=== PATIENT | female | born 1935 | race Caucasian/White ===

== ENCOUNTER 2016-04-17 12:20 | Outpatient (RCR) | payer MEDICARE, OTHER ==
--- OUTSIDE RECORDS SUMMARY | 2016-02-07 12:28 | XMS REPORT | Continuity of Care Document ---
Author Author [facility] Organization [facility] Address Unknown Phone Unavailable Care Team Providers Care Die Cast Engineer Name Role Phone DEANGELO FOSTER MD PCP Insurance Providers Payer Name Policy Number Subscriber Name Relationship [employer] [place] [id number] Bennett Pisano 18 Self / Same As Patient Advance Directives Directive Response Recorded Date/Time Advance Directives Yes 06/16/14 8:55am Health Care Power of Mop Machine Operator Yes 06/16/14 8:55am Organ Donor No 06/16/14 8:55am Resuscitation Status Full Code 06/16/14 8:55am Problems No known problems or medical conditions. Medications Medication Dose Route Sig Days/Qty Instructions Order Date Discontinued Date Status Meloxicam (Mobic) 1 Each PO BEDTIME 09/16/10 09/30/10 Discontinued Pravastatin Sodium 1 Tab PO BEDTIME 09/16/10 09/30/10 Discontinued Lisinopril (Zestril) 1 Each PO BEDTIME 09/16/10 09/30/10 Discontinued [place]-3 Fatty Acids/Fish Oil 1 Each PO TWICE A DAY 09/16/10 Active Carvedilol (Coreg) 12.5 Mg PO TWICE A DAY TAKE 1/2 PILL TWICE A DAY 01/17 Active Omeprazole 20 Mg PO DAILY 09/16/10 Active Docusate Sodium 100 Mg PO TWICE A DAY 09/30/10 Active Lisinopril 40 Mg PO BEDTIME 06/29/11 08/27/11 Discontinued Acetaminophen/Hydrocodone Bitart 1 Each PO q6 hrs PRN 06/29/11 Active Amlodipine Besylate (Norvasc 5 Mg) 10 Mg PO DAILY 07/09/11 Active Polyethylene Glycol 17 Gm PO hs daily 07/09/11 02/07/12 Discontinued Senna 2 Ea PO TWICE A DAY 07/09/11 02/07/12 Discontinued Acidophilus 2 Each PO bid ac 09/05/11 02/07/12 Discontinued Metronidazole 500 Mg PO TWICE A DAY 09/05/11 05/16/14 Discontinued Potassium Chloride 2 Each PO TWICE A DAY WITH MEALS 09/05/11 Discontinued Trolamine Salicylate 0 TOP FOUR TIMES DAILY APPLY GENEROUSLY TO AFFECTED AREA. 09/05/11 02/07/12 Discontinued Glipizide 2.5 PO DAILY 06/16/14 Active Sitagliptin Phosphate 1 Each PO DAILY 06/16/14 Active Simvastatin 20 Mg PO BEDTIME 06/16/14 Active Escitalopram Oxalate 10 Mg PO BEDTIME 06/16/14 Active Gabapentin 100 Mg PO BEDTIME 06/16/14 Active Social History Social History Problem Response Recorded Date/Time Recent Foreign Travel No 06/16/2014 8:55am Smoking Status Never a Smoker 06/16/2014 8:55am Query Response Start Date Stop Date Smoking Status Never a Smoker Hospital Discharge Instructions No hospital discharge instructions. Plan of Care No plan of care. Functional Status No functional status results. Allergies, Adverse Reactions, Alerts Allergen Type Severity Reaction Status Last Updated NKANo Known Allergies Allergy Unknown Active 07/04/11 Immunizations Name Given Type Date of Pneumonia Vaccine 08/08/11 Historical Date of Influenza Vaccine 11/07/13 Historical Vital Signs Acute Vital Signs Vital Response Date/Time Temperature (Fahrenheit) 98.0 degrees F (97.6 - 99.5) Temperature (Calculated Celsius) 36.78873 degrees C (36.4 - 37.5) Temperature Source Tympanic Pulse Rate (adult) 66 bpm (60 - 90) Respiratory Rate 18 bpm (12 - 24) O2 Sat by Pulse Oximetry 98 % (88 - 100) Blood Pressure 119/64 mm Hg Pain Pain Intensity 0 Height (Feet) 5 feet Height (Inches) 8.00 inches Height (Calculated Centimeters) 172.718375 cm Weight (Pounds) 160 pounds Weight (Ounces) 0.0 oz Weight (Calculated Grams) 87513.780 gm Weight (Calculated Kilograms) 72.590725 kilograms Height 5 ft 8 in Weight 160 lb Body Mass Index 24.3 kg/m^2 Results No known relevant diagnostic tests, laboratory data and/or discharge summary. Procedures No known history of procedures. Encounters Encounter Location Date/Time Registered [facility] 06/16/14 8:50am Registered Clinic [facility] 06/15/14 6:08am
[2016-02-07 12:50] VITALS: BP 123/74
[~2016-04-17] VITALS: Ht 172.7 cm; Wt 77.1 kg
[~2016-04-17 12:20] MED LIST: AC325T PO; ACHD5005 PO; ACID1TAB5 PO; AMLO5TAB2 PO; CARV25TA PO; CITA20TA4 PO; CLN.1T PO; DABI75CA3 PO; DCS100C PO; DPH125U5 PO; ESCI10TA48 PO; GABA-486 PO; GLIP2.5T3 PO; GLIP5TAB13 PO; HEParin (CENTRAL IV FLUSH) 500 UNIT/5 ML SYR ONE; LISI40TA PO; LORA0.5T PO; MELO-195 PO; METR500T PO; OMEG1CAP51 PO; OMEP20TA2 PO; PANT20TA2 PO; POLY17PO23 PO; POTA10TA6 PO; PRV20T PO; SENN1TAB76 PO; SIMV20TA3 PO; SITA100T PO; SMV10T PO; TRL10C90 TOP
[2016-04-17] MEDS ORDERED: HEParin (CENTRAL IV FLUSH) 500 UNIT/5 ML SYR ONE (12:28)
[2016-04-17 13:26] VITALS: BP 110/51
== END 2016-05-07 | disposition home or self-care (01) ==
LOC: SDC 12:20
PROVIDERS: ATTEND Nurse Practitioner Family
DX: Z45.2 Encounter for adjustment and management of vascular access device (principal); I10 Essential (primary) hypertension; E11.9 Type 2 diabetes mellitus without complications; Z79.899 Other long term (current) drug therapy
CPT/HCPCS: 96523

== ENCOUNTER 2016-09-02 11:05 | Outpatient (RCR) | payer MEDICARE, OTHER ==
[2016-06-09] MEDS: CATHETER FLUSH 10 ML SYR IV PRN (11:05)
[2016-06-09 11:15] VITALS: BP 133/77
[2016-06-09 11:21] LABS: BASOPHILS % (AUTO) 0 % (0-10); EOSINOPHILS # (AUTO) 0.2 10^3/uL (0.0-0.3); EOSINOPHILS % (AUTO) 2 % (0-10); LYMPHOCYTES % (AUTO) 23 % (12-44); MEAN CORPUSCULAR HEMOGLOBIN 30 PG (25-34); MEAN CORPUSCULAR HGB CONC 33 G/DL (32-36); MEAN CORPUSCULAR VOLUME 89 FL (80-99); MEAN PLATELET VOLUME 11.2 FL (7.4-10.4); MONOCYTES # (AUTO) 0.9 X 10^3 (0.0-1.0); MONOCYTES % (AUTO) 10 % (0-12); NEUTROPHILS # (AUTO) 5.7 X 10^3 (1.8-7.8); NEUTROPHILS % (AUTO) 65 % (42-75); PLATELET COUNT 201 10^3/uL (130-400); RED BLOOD COUNT 4.64 10^6/uL (4.35-5.85); RED CELL DISTRIBUTION WIDTH 14.2 % (10.0-14.5); WHITE BLOOD COUNT 8.8 10^3/uL (4.3-11.0)
[2016-06-09 11:47] LABS: ALBUMIN 4.1 G/DL (3.2-4.5); BILIRUBIN,TOTAL 0.4 MG/DL (0.1-1.0); CALCIUM 9.4 MG/DL (8.5-10.1); CREATININE SERUM 0.98 MG/DL (0.60-1.30); POTASSIUM 4.1 MMOL/L (3.6-5.0); TOTAL PROTEIN 7.5 G/DL (6.4-8.2)
[2016-06-09 12:07] LABS: THYROID STIMULATING HORMONE 2.39 UIU/ML (0.35-4.94)
[2016-07-25 12:02] VITALS: BP 125/76
[~2016-09-02] VITALS: Ht 172.7 cm; Wt 77.1 kg
[~2016-09-02 11:05] MED LIST changes: +HEParin (CENTRAL IV FLUSH) 500 UNIT/5 ML SYR IV ONE
[2016-09-02] MEDS: CATHETER FLUSH 10 ML SYR IV PRN (11:05)
[2016-09-02 11:14] VITALS: BP 114/71
== END 2016-09-07 | disposition home or self-care (01) ==
LOC: SDC 11:05
PROVIDERS: ATTEND Nurse Practitioner Family
DX: Z45.2 Encounter for adjustment and management of vascular access device (principal); I10 Essential (primary) hypertension; E11.9 Type 2 diabetes mellitus without complications; Z79.899 Other long term (current) drug therapy
CPT/HCPCS: 36415; 36591; 80053; 80061; 83036; 84443; 85025; 96523

== ENCOUNTER 2016-09-11 19:54 | Emergency (ER) | payer MEDICARE ==
[~2016-09-11] VITALS: Ht 172.7 cm; Wt 77.1 kg
[~2016-09-11 19:54] MED LIST changes: -HEParin (CENTRAL IV FLUSH) 500 UNIT/5 ML SYR IV ONE; -HEParin (CENTRAL IV FLUSH) 500 UNIT/5 ML SYR ONE
--- NOTE | 2016-09-11 20:15 | ED Chest Pain ---
General Chief Complaint: Chest Wall/Rib Pain Stated Complaint: RT SIDED ABD PAIN Source: patient, family (daughter) Exam Limitations: no limitations History of Present Illness Time seen by provider: 20:13 Initial Comments Patient reports that 3 days ago she was turning around in the washroom and fell tripping over her own feet and landing her right ribs against the washing machine. Since that time she's had increasingly worsening pain in her right ribs making it difficult to take deep breaths. She is not feeling short of breath or having chest pain elsewhere. She is however put on Lasix the last few weeks for some dependent edema. She's denies having heart failure. She stated she had a heart catheter while back. She denies dysuria fevers malaise chills nausea or vomiting or diarrhea. She takes hydrocodone at home and denies constipation states her pain is controlled okay on the hydrocodone. When she fell she denies loss of consciousness or striking her head. The daughter reports she is the same as always. Allergies and Home Medications Allergies Coded Allergies: [place] Known Allergies (Verified Allergy, Unknown, 07/04/11) Home Medications Amlodipine Besylate 10 Mg Tablet, 10 MG PO DAILY, (Reported) Carvedilol 25 Mg Tablet, 25 MG PO BID, (Reported) Docusate Sodium 100 Mg Capsule, 100 MG PO BID, (Reported) Escitalopram Oxalate 20 Mg Tablet, 20 MG PO HS, (Reported) Gabapentin 100 Mg Capsule, 100 MG PO daily early, (Reported) Gabapentin 100 Mg Capsule, 200 MG PO HS, (Reported) Glipizide 5 Mg Tab.er.24, 5 MG PO DAILY, (Reported) Hydrocodone/Acetaminophen 1 Each Tablet, 1 EACH PO Q6H PRN for PAIN-MODERATE TO SEVERE, (Reported) Lisinopril 2.5 Mg Tablet, 2.5 MG PO DAILY, (Reported) Nitrofurantoin Monohyd/M-Cryst 100 Mg Capsule, 1 TAB PO BID for 7 Days, #14 Ref 0 Prescribed by: JEFFREY VELASQUEZ on 09/11/162221 [place] 3 Polyunsat Fatty Acids 1,000 Mg Cap, 1,000 MG PO BID, (Reported) Omeprazole 20 Mg Tablet.dr, 20 MG PO DAILY, (Reported) Simvastatin 20 Mg Tablet, 20 MG PO HS, (Reported) Sitagliptin Phosphate 100 Mg Tablet, 100 MG PO DAILY, (Reported) Review of Systems Constitutional: No chills, No diaphoresis, No fever, No malaise Respiratory: See HPI, Denies Cough, Denies Shortness of Air Cardiovascular: See HPI, Chest Pain, Edema (stable, chronic), Denies Lightheadedness, Denies Palpitations, Denies Syncope Gastrointestinal: Denies Abdomen Distended, Denies Abdominal Pain, Denies Constipated, Denies Diarrhea, Denies Nausea Genitourinary: Denies Burning, Denies Drainage Musculoskeletal: No joint pain, No joint swelling Skin: No pruritus, No rash Past Orbuqba-Eibdql-Ictkeu Hx Patient Social History Alcohol Use: Denies Use Recreational Drug Use: No Smoking Status: Former Smoker Type Used: Cigarettes 2nd Hand Smoke Exposure: No Recent Foreign Travel: No Contact w/Someone Who Travel: No Recent Hopitalizations: No Immunizations Up To Date Tetanus Booster (TDap): Unknown Date of Pneumonia Vaccine: Aug 08, 2011 Date of Influenza Vaccine: Nov 08, 2015 Seasonal Allergies Seasonal Allergies: No Surgeries HX Surgeries: Yes (bilat hip replacement, wrist surgery, port, brain aneurysm removed) Surgeries: Hysterectomy, Joint Replacement Respiratory Hx Respiratory Disorders: No Cardiovascular Hx Cardiac Disorders: Yes Cardiac Disorders: Hypertension Neurological Hx Neurological Disorders: Yes (brain anuerysm) 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 System Hx 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 Disorders: No Genitourinary Hx Genitourinary Disorders: No Gastrointestinal Hx Gastrointestinal Disorders: No Musculoskeletal Hx Musculoskeletal Disorders: Yes Musculoskeletal Disorders: Arthritis Endocrine Hx Endocrine Disorders: Yes Endocrine Disorders: Diabetes, Non-Insulin dep HEENT HX ENT Disorders: No Cancer Hx Cancer: No Psychosocial Hx Psychiatric Problems: Yes Behavioral Health Disorders: Depression Integumentary HX Skin/Integumentary Disorder: No Blood Transfusions Hx Blood Disorders: No Physical Exam Vital Signs Vital Sign - Last 12Hours 09/11/16 20:10 Temp 98.1 Pulse 75 Resp 16 B/P (MAP) 138/97 Pulse Ox 95 O2 Delivery Room Air Capillary Refill : Less Than 3 Seconds General Appearance: No Apparent Distress, WD/WN, Obese Respiratory: Lungs Clear, Normal Breath Sounds, No Accessory Muscle Use, No Respiratory Distress, Other (chest wall right interior of the axillary line tenderness to palpation along ribs 10 and 11, 12) Cardiovascular: Regular Rate, Rhythm, No JVD, Normal Peripheral Pulses, Other ( 1+ edema bilateral lower legs up to midcalf) Gastrointestinal: Normal Bowel Sounds, Non Tender, Soft Extremity: Normal Capillary Refill, Non Tender Neurologic/Psychiatric: Alert, Oriented x3 Progress/Results/Core Measures Results/Orders Lab Results Laboratory Tests Test 09/11/16 20:18 09/11/16 21:02 Range/Units Urine Color YELLOW Urine Clarity CLEAR Urine pH 6 5-9 Urine Specific [place] 1.015 L 1.016-1.022 Urine Protein 1+ H NEGATIVE Urine Glucose (UA) NEGATIVE NEGATIVE Urine Ketones NEGATIVE NEGATIVE Urine Nitrite NEGATIVE NEGATIVE Urine Bilirubin NEGATIVE NEGATIVE Urine Urobilinogen 1 NORMAL MG/DL Urine Leukocyte Esterase 2+ H NEGATIVE Urine RBC (Auto) NEGATIVE NEGATIVE Urine RBC NONE /HPF Urine WBC 5-10 H /HPF Urine Squamous Epithelial Cells 2-5 /HPF Urine Crystals NONE /LPF Urine Bacteria FEW H /HPF Urine Casts NONE /LPF Urine Mucus NEGATIVE /LPF Urine Culture Indicated YES White Blood Count 7.9 4.3-11.0 10^3/uL Red Blood Count 4.26 L 4.35-5.85 10^6/uL Hemoglobin 12.1 11.5-16.0 G/DL Hematocrit 38 35-52 % Mean Corpuscular Volume 88 80-99 FL Mean Corpuscular Hemoglobin 28 25-34 PG Mean Corpuscular Hemoglobin Concent 32 32-36 G/DL Red Cell Distribution Width 14.3 10.0-14.5 % Platelet Count 209 130-400 10^3/uL Mean Platelet Volume 11.2 H 7.4-10.4 FL Neutrophils (%) (Auto) 60 42-75 % Lymphocytes (%) (Auto) 28 12-44 % Monocytes (%) (Auto) 9 0-12 % Eosinophils (%) (Auto) 3 0-10 % Basophils (%) (Auto) 1 0-10 % Neutrophils # (Auto) 4.7 1.8-7.8 X 10^3 Lymphocytes # (Auto) 2.2 1.0-4.0 X 10^3 Monocytes # (Auto) 0.7 0.0-1.0 X 10^3 Eosinophils # (Auto) 0.3 0.0-0.3 10^3/uL Basophils # (Auto) 0.0 0.0-0.1 10^3/uL Sodium Level 140 135-145 MMOL/L Potassium Level 3.8 3.6-5.0 MMOL/L Chloride Level 106 98-107 MMOL/L Carbon Dioxide Level 23 21-32 MMOL/L Anion Gap 11 5-14 MMOL/L Blood Urea Nitrogen 22 H 7-18 MG/DL Creatinine 1.10 0.60-1.30 MG/DL Estimat Glomerular Filtration Rate 48 BUN/Creatinine Ratio 20 Glucose Level 182 H 70-105 MG/DL Calcium Level 9.6 8.5-10.1 MG/DL Magnesium Level 1.9 1.8-2.4 MG/DL Total Bilirubin 0.4 0.1-1.0 MG/DL Aspartate Amino Transf (AST/SGOT) 17 5-34 U/L Alanine Aminotransferase (ALT/SGPT) 23 0-55 U/L Alkaline Phosphatase 122 40-136 U/L Total Protein 7.6 6.4-8.2 GM/DL Albumin 4.2 3.2-4.5 GM/DL My Orders Orders - JEFFREY VELASQUEZ Cbc With Automated Diff (09/11/16 20:15) Comprehensive Metabolic Panel (09/11/16 20:15) Magnesium (09/11/16 20:15) Ua Culture If Indicated (09/11/16 20:15) Ribs, Right 2-3 Views (09/11/16 20:15) Urine Culture (09/11/16 20:18) Rx-Nitrofurantoin [place] (Rx-Macrobid) (09/11/16 22:30) Medications Given in ED Current Medications Medications Dose Ordered Sig/Mauricio Route Start Time Stop Time Status Last Admin Dose Admin Nitrofurantoin Macrocrystals 100 mg ONCE ONCE PO 09/11/16 22:30 09/11/16 22:31 DC 09/11/16 22:30 100 MG Vital Signs/I&O Vital Sign - Last 12Hours 09/11/16 09/11/16 20:10 22:31 Temp 98.1 98.1 Pulse 75 70 Resp 16 18 B/P (MAP) 138/97 Pulse Ox 95 96 O2 Delivery Room Air Progress Note : Time: 20:24 Progress Note Falls not very well explains we'll get a UA and also since she was recently started on Lasix we'll check electrolytes and kidney function. She states that her edema is normal for her and has no history of congestive heart failure however she is not best historian. We'll check a CBC to make sure she is not anemic. If these are all okay the x-ray of her ribs may demonstrate fracture but will treat her appropriately and let her go. Shuart he has hydrocodone at home for her pain. Diagnostic Imaging Diagonstic Imaging: Xray (ribs right) Comments NAME: AMANDA PISANO [facility] REC#: [id number] PT STATUS: REG ER : 1935 PHYSICIAN: JEFFREY VELASQUEZ MD ADMIT DATE: 09/11/16/ER Draft Date of Exam:09/11/16 RIBS, RIGHT 2-3 VIEWS INDICATION: Fell on Thursday. Continued pain in the right ribs EXAMINATION: Right rib series dated 09/11/2016 Comparison made to a chest x-ray from 02/07/2012 FINDINGS: Three views of the ribs. Deformity of the right posterolateral rib is noted age indeterminate; this involves the sixth rib and has a chronic appearance, however, correlation for any point tenderness recommended. No other definite fractures are seen. The remaining osseous structures appear to be grossly intact. There is a chest port on the right unremarkable in appearance. IMPRESSION: Right posterior lateral sixth rib fracture likely old, however, correlate for any point tenderness. No definite other fractures visualized. Other findings as above. Dictated on workstation # [id number] Dict: 09/11/162058 Trans: 09/11/16 2146 [facility] [id number] Interpreted by: ANASTASIA DIOP MD Reviewed: Reviewed by Me Departure Impression Impression: Primary Impression: Rib pain Additional Impression: UTI (urinary tract infection) Qualified Codes: N30.00 - Acute cystitis without hematuria Disposition: HOME, SELF-CARE Condition: Stable Departure-Patient Inst. Decision time for Depature: 22:17 Referrals: DEANGELO FOSTER MD (PCP/Family) Primary Care Physician Patient Instructions: Rib Fracture (DC) Add. Discharge Instructions: You have an old rib fracture on the right side is not the same place of your pain but may been aggravated by her recent fall. You also have a UTI which may be explained why you're having falls. I will treat you with antibiotics to be taken twice daily with food for the next 7 days. Follow-up with your PCP if you have new symptoms. If you have new or worrisome symptoms such as fever nausea vomiting or chest pain that is not resolved with just simple Tylenol or ibuprofen then you should return to the ER. All discharge instructions reviewed with patient and/or family. Voiced understanding. Scripts Nitrofurantoin Monohyd/M-Cryst (Macrobid 100 mg Capsule) 100 Mg Capsule 1 TAB PO BID for 7 Days, #14 CAP 0 Refills Prov: JEFFREY VELASQUEZ 09/11/16 Copy Copies To 1: DEANGELO FOSTER MD, TITUS J Sep 11, 2016 20:15
[2016-09-11] MEDS ORDERED: AMLO10TA2 PO (20:23)
[2016-09-11] MEDS ORDERED: HYDR-3816 PO (20:23)
[2016-09-11] MEDS ORDERED: ESCI20TA45 PO (20:23)
[2016-09-11] MEDS ORDERED: DOCU-143 PO (20:23)
[2016-09-11] MEDS ORDERED: LISI2.5T PO (20:23)
[2016-09-11] MEDS ORDERED: SITA100T12 PO (20:23)
[2016-09-11] MEDS ORDERED: SIMV20TA3 PO (20:23)
[2016-09-11] MEDS ORDERED: OMEP20TA7 PO (20:23)
[2016-09-11] MEDS ORDERED: OMG1KC PO (20:23)
[2016-09-11] MEDS ORDERED: GABA-486 PO ×2 (20:23)
[2016-09-11] MEDS ORDERED: GLIP5TAB26 PO (20:23)
[2016-09-11] MEDS ORDERED: CARV25TA PO (20:23)
[2016-09-11 21:12] LABS: BASOPHILS % (AUTO) 1 % (0-10); EOSINOPHILS # (AUTO) 0.3 10^3/uL (0.0-0.3); EOSINOPHILS % (AUTO) 3 % (0-10); LYMPHOCYTES # (AUTO) 2.2 X 10^3 (1.0-4.0); LYMPHOCYTES % (AUTO) 28 % (12-44); MEAN CORPUSCULAR HEMOGLOBIN 28 PG (25-34); MEAN CORPUSCULAR HGB CONC 32 G/DL (32-36); MEAN CORPUSCULAR VOLUME 88 FL (80-99); MEAN PLATELET VOLUME 11.2 FL (7.4-10.4); MONOCYTES # (AUTO) 0.7 X 10^3 (0.0-1.0); MONOCYTES % (AUTO) 9 % (0-12); NEUTROPHILS # (AUTO) 4.7 X 10^3 (1.8-7.8); NEUTROPHILS % (AUTO) 60 % (42-75); PLATELET COUNT 209 10^3/uL (130-400); RED BLOOD COUNT 4.26 10^6/uL (4.35-5.85); RED CELL DISTRIBUTION WIDTH 14.3 % (10.0-14.5); WHITE BLOOD COUNT 7.9 10^3/uL (4.3-11.0)
[2016-09-11 21:20] LABS: BILIRUBIN,URINE NEGATIVE (NEGATIVE); KETONES,URINE NEGATIVE (NEGATIVE); LEUKOCYTE ESTERASE ,URINE 2+ (NEGATIVE); NITRITE,URINE NEGATIVE (NEGATIVE); PH,URINE 6 (5-9); PROTEIN,URINE 1+ (NEGATIVE); UROBILINOGEN,URINE 1 MG/DL (NORMAL)
[2016-09-11 21:31] LABS: ALBUMIN 4.2 GM/DL (3.2-4.5); BILIRUBIN,TOTAL 0.4 MG/DL (0.1-1.0); CALCIUM 9.6 MG/DL (8.5-10.1); CREATININE SERUM 1.1 MG/DL (0.60-1.30); MAGNESIUM 1.9 MG/DL (1.8-2.4); POTASSIUM 3.8 MMOL/L (3.6-5.0); TOTAL PROTEIN 7.6 GM/DL (6.4-8.2)
--- NOTE | 2016-09-11 21:47 | Diagnostic Imaging Report ---
INDICATION: Fell on Thursday. Continued pain in the right ribs EXAMINATION: Right rib series dated 09/11/2016 Comparison made to a chest x-ray from 02/07/2012 FINDINGS: Three views of the ribs. Deformity of the right posterolateral rib is noted age indeterminate; this involves the sixth rib and has a chronic appearance, however, correlation for any point tenderness recommended. No other definite fractures are seen. The remaining osseous structures appear to be grossly intact. There is a chest port on the right unremarkable in appearance. IMPRESSION: Right posterior lateral sixth rib fracture likely old, however, correlate for any point tenderness. No definite other fractures visualized. Other findings as above. Dictated by: Dictated on workstation # [id number]
[2016-09-11] MEDS ORDERED: NITR-65 PO (22:22)
[2016-09-11] MEDS: RX-NITROFURANTOIN 100 MG (MACROBID) CAP PPK#2 PO ONE (22:30)
[2016-09-11 22:31] VITALS: BP 135/79
== END 2016-09-11 22:31 | disposition home or self-care (01) ==
LOC: EDUNIT# 19:54 → ER 19:56
DX: R07.81 Pleurodynia (principal); N39.0 Urinary tract infection, site not specified; R60.9 Edema, unspecified; F32.9 Major depressive disorder, single episode, unspecified; E11.9 Type 2 diabetes mellitus without complications; M19.90 Unspecified osteoarthritis, unspecified site; I10 Essential (primary) hypertension; Z96.643 Presence of artificial hip joint, bilateral; Z86.79 Personal history of other diseases of the circulatory system; Z87.891 Personal history of nicotine dependence; Z87.81 Personal history of (healed) traumatic fracture; W01.0XXA Fall on same level from slipping, tripping and stumbling without subsequent striking against object, initial encounter
CPT/HCPCS: 36415; 71100; 80053; 81000; 83735; 85025; 87088; 99283

== ENCOUNTER → 2016-10-06 | Outpatient (CLI) | payer MEDICARE ==
[~2016-10-06] MED LIST changes: +AMLO10TA2 PO; +DOCU-143 PO; +ESCI20TA45 PO; +GLIP5TAB26 PO; +HYDR-3816 PO; +LISI2.5T PO; +NITR-65 PO; +OMEP20TA7 PO; +OMG1KC PO; +SITA100T12 PO
--- NOTE | 2016-10-06 17:54 | Diagnostic Imaging Report ---
INDICATION: Right knee pain. TECHNIQUE: Grayscale with color-flow and Doppler waveform evaluation of the right lower extremity deep venous system. CORRELATION STUDY: None FINDINGS: Color and grayscale sonographic images demonstrate no intraluminal defect within the visualized portion of the common femoral, superficial femoral and/or popliteal veins to suggest thrombus formation. These vessels demonstrate normal response to compression and augmentation. No soft tissue fluid collection. IMPRESSION: 1. Negative for deep venous thrombosis of the right leg. Dictated by: Dictated on workstation # [id number]
== END ==
LOC: RAD 17:10
PROVIDERS: ATTEND Nurse Practitioner Family
DX: M79.604 Pain in right leg (principal); R22.41 Localized swelling, mass and lump, right lower limb

== ENCOUNTER 2016-11-25 11:41 | Outpatient (RCR) | payer MEDICARE, OTHER ==
[2016-10-14 13:15] VITALS: BP 119/62
[~2016-11-25] VITALS: Ht 172.7 cm; Wt 77.1 kg
[~2016-11-25 11:41] MED LIST changes: +HEParin (CENTRAL IV FLUSH) 500 UNIT/5 ML SYR IV ONE; +HEParin (CENTRAL IV FLUSH) 500 UNIT/5 ML SYR ONE
[2016-11-25] MEDS ORDERED: CATHETER FLUSH 10 ML SYR IV PRN (11:45)
[2016-11-25] MEDS ORDERED: HEParin (CENTRAL IV FLUSH) 500 UNIT/5 ML SYR IV ONE (12:00)
[2016-11-25 12:10] VITALS: BP 114/68
== END 2016-12-06 | disposition home or self-care (01) ==
LOC: SDC 11:41
PROVIDERS: ATTEND Nurse Practitioner Family
DX: Z45.2 Encounter for adjustment and management of vascular access device (principal); I10 Essential (primary) hypertension; E11.9 Type 2 diabetes mellitus without complications; Z79.899 Other long term (current) drug therapy
CPT/HCPCS: 96523

== ENCOUNTER 2017-06-01 05:36 | Outpatient (CLI) | payer MEDICARE ==
[~2017-06-01] VITALS: Ht 172.7 cm; Wt 90.7 kg
[~2017-06-01 05:36] MED LIST changes: -HEParin (CENTRAL IV FLUSH) 500 UNIT/5 ML SYR IV ONE; -HEParin (CENTRAL IV FLUSH) 500 UNIT/5 ML SYR ONE; +HYDR-34 PO; -HYDR-3816 PO
[2017-06-01] MEDS ORDERED: POTA10TA10 PO (10:13)
[2017-06-01] MEDS ORDERED: ESCI10TA55 PO (10:13)
[2017-06-01] MEDS ORDERED: FURO-125 PO (10:13)
[2017-06-01] MEDS ORDERED: INSU100I32 SQ (10:13)
== END 2017-06-01 10:14 ==
LOC: PREOP 05:36
PROVIDERS: ATTEND Surgery
DX: Z01.818 Encounter for other preprocedural examination (principal); T82.514A Breakdown (mechanical) of infusion catheter, initial encounter

== ENCOUNTER 2017-06-02 11:05 | Day surgery (SDC) | payer MEDICARE ==
--- NOTE | 2017-06-01 14:17 | History & Physicial ---
History of Present Illness History of Present Illness Reason for visit/HPI For removal of a nonfunctioning port Date of Admission 06/02/17 Date Seen by Provider: Jun 01, 2017 Time Seen by Provider: 14:16 I consulted on this patient on 06/01/17 14:15 Attending Physician Navid Iraheta MD Admitting Physician Amber Figueroa MD Consult Allergies and Home Medications Allergies Coded Allergies: NKANo Known Allergies (Verified Allergy, Unknown, 07/04/11) Home Medications Amlodipine Besylate 10 Mg Tablet, 10 MG PO DAILY, (Reported) Carvedilol 25 Mg Tablet, 25 MG PO BID, (Reported) Docusate Sodium 100 Mg Capsule, 100 MG PO DAILY, (Reported) Escitalopram Oxalate 10 Mg Tablet, 10 MG PO HS, (Reported) Furosemide 20 Mg Tablet, 40 MG PO DAILY, (Reported) TAKE 2 (20MG) TABS Gabapentin 100 Mg Capsule, 100 MG PO DAILY@0700,1400, (Reported) Gabapentin 100 Mg Capsule, 200 MG PO HS, (Reported) TAKE 2 (100MG) TABS AT HS Glipizide 5 Mg Tab.er.24, 5 MG PO DAILY, (Reported) Hydrocodone Bit/Acetaminophen 1 Each Tablet, 1 EACH PO Q6H PRN for PAIN- MODERATE TO SEVERE, (Reported) Insulin Degludec 100 Unit/1 Ml Insuln.pen, 26 UNIT SQ DAILY@1200, (Reported) [place] 3 Polyunsat Fatty Acids 1,000 Mg Cap, 1,000 MG PO BID, (Reported) Omeprazole 20 Mg Tablet.dr, 20 MG PO DAILY, (Reported) Potassium Chloride 10 Meq Tablet.er, 10 MEQ PO DAILY, (Reported) Simvastatin 20 Mg Tablet, 20 MG PO HS, (Reported) Patient Home Medication List Home Medication List Reviewed: Yes Past Gqiotjp-Masgeg-Ftmrkg Hx Patient Social History Employed/Student: retired Former Smoker, Quit: Dec 27, 1995 Type Used: Cigarettes 2nd Hand Smoke Exposure: No Recent Hopitalizations: No Immunizations Up To Date Tetanus Booster (TDap): Unknown Date of Pneumonia Vaccine: Aug 08, 2011 Date of Influenza Vaccine: Nov 08, 2015 Seasonal Allergies Seasonal Allergies: No Surgeries Yes (bilat hip replacement, wrist surgery, port, brain aneurysm removed) Hysterectomy, Joint Replacement Respiratory No Cardiovascular Yes Hypertension Neurological Yes (brain anuerysm) 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 System Hx 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 Disorders: No Gastrointestinal No Musculoskeletal Yes Arthritis Endocrine History of Endocrine Disorders: Yes Endocrine Disorders: Diabetes, Non-Insulin dep Cancer No Psychosocial History of Psychiatric Problem: Yes Behavioral Health Disorders: Depression Integumentary History of Skin or Integumenta: No Blood Transfusions History of Blood Disorders: No Constitutional: malaise EENTM: no symptoms reported Respiratory: no symptoms reported Cardiovascular: no symptoms reported Gastrointestinal: no symptoms reported Musculoskeletal: joint pain Skin: no symptoms reported Psychiatric/Neurological: No Symptoms Reported Physical Exam Vital Signs Capillary Refill : General Appearance: No Apparent Distress Neck: Normal Inspection Respiratory: Lungs Clear Cardiovascular: Regular Rate, Rhythm Neurologic/Psychiatric: Alert, Oriented x3 Skin: Warm/Dry Assessment/Plan Assessment and Plan Lady with a nonfunctioning port. For removal under monitored conditions. Problems: Admission Diagnosis Admission Status: Other (Same Day Surgery) NAVID IRAHETA MD Jun 01, 2017 2:17 pm
[~2017-06-02] VITALS: Ht 172.7 cm; Wt 90.7 kg
[~2017-06-02 11:05] MED LIST changes: +ESCI10TA55 PO; +FURO-125 PO; +INSU100I32 SQ; +POTA10TA10 PO
[2017-06-02 11:13] VITALS: BP 113/67
[2017-06-02] MEDS ORDERED: LACTATED RINGERS 1,000 ML IV PRN (11:19)
[2017-06-02] MEDS ORDERED: ceFAZolin 2 GM IV Premixed 50 ML IV ONE (11:30)
[2017-06-02] MEDS ORDERED: BUP/EPI 0.5% 1:200,000 (SENSORCAINE) 30 ML VIAL ONE (12:01)
[2017-06-02] MEDS ORDERED: proPOfol 200 MG/20 ML (DIPRIVAN) VIAL IV ONE (13:01)
--- NOTE | 2017-06-02 13:33 | Progress Note-Pre Operative ---
Pre-Operative Progress Note H&P Reviewed The H&P was reviewed, patient examined and no changes noted. Date Seen by Provider: Jun 02, 2017 Time Seen by Provider: 11:00 Date H&P Reviewed: Jun 02, 2017 Time H&P Reviewed: 13:33 Pre-Operative Diagnosis: Nonfunctioning [id number] NAVID RAND MD Jun 02, 2017 1:33 pm
--- NOTE | 2017-06-02 14:09 | Operative Report ---
Operative Report Date of Procedure/Surgery Jun 02, 2017 Surgeon (s) NAVID RAND MD General Teller (s): n/a Post-Operative Diagnosis Same Procedure Performed Removal of infusaport Description of Procedure Anesthesia Type: MAC Estimated blood loss (mL): Minimal Specimen(s) collected/removed None Description of the Procedure Indication for the procedure: This lady came in to have a nonfunctioning Infuse- a-Port removed. Informed consent was obtained after reviewing the procedure in detail. Description of procedure: She was placed supine on the operative table and our anesthesiologist administered sedation, monitoring her vital signs. A gram of Ancef was administered intravenously as prophylaxis against wound infection. Right infraclavicular fossa was prepared and draped in the usual sterile manner. Local anesthesia was achieved using 0.5 percent Marcaine with epinephrine. A secondary incision was made along the previous scar and the Akupkn-c-Wxfx removed without risking air embolism. The incision was then closed using 3-0 Vicryl for the subcutaneous tissue and 4-0 Vicryl for the skin, in a subcuticular fashion. Steri-Strips and a nonadherent dressing were applied. She tolerated the procedure well and was taken back to the nursing area in a stable condition. Findings of the Procedure See op report Allergies and Home Medications Allergies Coded Allergies: NKANo Known Allergies (Verified Allergy, Unknown, 07/04/11) Home Medications Amlodipine Besylate 10 Mg Tablet, 10 MG PO DAILY, (Reported) Carvedilol 25 Mg Tablet, 25 MG PO BID, (Reported) Docusate Sodium 100 Mg Capsule, 100 MG PO DAILY, (Reported) Escitalopram Oxalate 10 Mg Tablet, 10 MG PO HS, (Reported) Furosemide 20 Mg Tablet, 40 MG PO DAILY, (Reported) TAKE 2 (20MG) TABS Gabapentin 100 Mg Capsule, 100 MG PO DAILY@0700,1400, (Reported) Gabapentin 100 Mg Capsule, 200 MG PO HS, (Reported) TAKE 2 (100MG) TABS AT HS Glipizide 5 Mg Tab.er.24, 5 MG PO DAILY, (Reported) Hydrocodone Bit/Acetaminophen 1 Each Tablet, 1 EACH PO Q6H PRN for PAIN- MODERATE TO SEVERE, (Reported) Insulin Degludec 100 Unit/1 Ml Insuln.pen, 26 UNIT SQ DAILY@1200, (Reported) [place] 3 Polyunsat Fatty Acids 1,000 Mg Cap, 1,000 MG PO BID, (Reported) Omeprazole 20 Mg Tablet.dr, 20 MG PO DAILY, (Reported) Potassium Chloride 10 Meq Tablet.er, 10 MEQ PO DAILY, (Reported) Simvastatin 20 Mg Tablet, 20 MG PO HS, (Reported) Patient Home Medication List Home Medication List Reviewed: Yes NAVID RAND MD Jun 02, 2017 2:09 pm
--- NOTE | 2017-06-02 14:11 | Discharge Inst-Simple/Standard ---
Discharge Inst-Standard Discharge Medications New, Converted or Re-Newed RX: Other Patient Instructions/Follow Up Plan of Care/Instructions/FU: Band aid off in 48 hours. Activity as Tolerated: Yes Discharge Diet: ADA Diet NAVID RAND MD Jun 02, 2017 2:11 pm
[2017-06-02] MEDS ORDERED: morphine INJ 10 MG/ML 1ML (SYR OR VIAL) IVP PRN (14:30)
[2017-06-02 14:40] VITALS: BP 133/84
--- NOTE | 2017-06-02 15:08 | Anesthesia-General Post-Op ---
MAC Patient Condition Mental Status/LOC: Same as Preop Cardiovascular: Satisfactory Nausea/Vomiting: Absent Respiratory: Satisfactory Pain: Controlled Complications: Absent Post Op Complications Complications None Follow Up Care/Instructions Patient Instructions None needed. Anesthesiology Discharge Order Discharge Order Patient is doing well, no complaints, stable vital signs, no apparent adverse anesthesia problems. RYAN RUEDA DO Jun 02, 2017 15:08
[2017-06-02 15:25] VITALS: BP 133/73
[2017-06-02 15:38] VITALS: BP 133/73
== END 2017-06-02 15:38 | disposition home or self-care (01) ==
LOC: SDC 11:05
PROVIDERS: ATTEND Surgery
DX: T82.514A Breakdown (mechanical) of infusion catheter, initial encounter (principal); E11.9 Type 2 diabetes mellitus without complications; I10 Essential (primary) hypertension; F32.9 Major depressive disorder, single episode, unspecified; Z79.4 Long term (current) use of insulin; Z79.899 Other long term (current) drug therapy; Z87.891 Personal history of nicotine dependence; Z96.643 Presence of artificial hip joint, bilateral
CPT/HCPCS: 82962; 87081

== ENCOUNTER 2017-12-11 11:43 | Inpatient (IN) | payer MEDICARE ==
[~2017-12-11] VITALS: Ht 172.7 cm; Wt 96.4 kg
[~2017-12-11 11:43] MED LIST changes: -AMLO10TA2 PO; +AMLO10TA6 PO
[2017-12-11] MEDS ORDERED: HYDROcodone/APAP 10 MG/325 MG (LORTAB) TAB PO PRN (12:00)
[2017-12-11] MEDS ORDERED: FUROSEMIDE 40 MG/4 ML INJ (LASIX) IVP NR (12:00)
[2017-12-11 12:15] VITALS: BP 145/70
--- NOTE | 2017-12-11 12:43 | History & Physicial ---
History of Present Illness History of Present Illness Reason for visit/HPI PT PRESENTED TO THE OFFICE TODAY WITH SEVERE SHORTNESS OF BREATH THAT HAS BEEN ONGOING FOR THE PAST FEW WEEKS BUT WORSENED OVER THE FEW DAYS PRIOR TO THE OFFICE VISIT TODAY. SHE HAS BEEN TAKING HER MEDICATIONS DIRECTED (PER PT AND HER DTR), HOWEVER SHE HAS ALSO BEEN EATING A LOT OF SALTY FOODS AND NOT TAKING GOOD CARE OF HERSELF FROM A DIABETES STANDPOINT. HER DTR REPORTS THAT AMANDA CELESTIN HAS BEEN HAVING TO SLEEP IN HER RECLINER DUE TO HER SHORTNESS OF BREATH AND THAT SHE HAS BEEN GETTING PROGRESSIVELY WEAKER HER SWELLING HAS INCREASED. WHEN SHE GOT TO CLINIC HER OXYGEN WAS 84% AND IT CAME UP TO 92% ON 2 LITERS OF OXYGEN Date of Admission 12/11/17 Date Seen by a Provider: Dec 11, 2017 Time Seen by a Provider: 11:30 I consulted on this patient on 12/11/17 12:10 Attending Physician Deangelo Figueroa MD Admitting Physician Deangelo Figueroa MD Consult Allergies and Home Medications Allergies Coded Allergies: [place] Known Allergies (Verified Allergy, Unknown, 07/04/11) Home Medications Amlodipine Besylate 10 Mg Tablet, 10 MG PO DAILY, (Reported) Carvedilol 25 Mg Tablet, 25 MG PO BID, (Reported) Docusate Sodium 100 Mg Capsule, 100 MG PO DAILY, (Reported) Escitalopram Oxalate 10 Mg Tablet, 10 MG PO HS, (Reported) Furosemide 20 Mg Tablet, 40 MG PO DAILY, (Reported) TAKE 2 (20MG) TABS Gabapentin 100 Mg Capsule, 100 MG PO DAILY@0700,1400, (Reported) Gabapentin 100 Mg Capsule, 200 MG PO HS, (Reported) TAKE 2 (100MG) TABS AT HS Glipizide 5 Mg Tab.er.24, 5 MG PO DAILY, (Reported) Hydrocodone Bit/Acetaminophen 1 Each Tablet, 1 EACH PO Q6H PRN for PAIN- MODERATE TO SEVERE, (Reported) Insulin Degludec 100 Unit/1 Ml Insuln.pen, 26 UNIT SQ DAILY@1200, (Reported) [place] 3 Polyunsat Fatty Acids 1,000 Mg Cap, 1,000 MG PO BID, (Reported) Omeprazole 20 Mg Tablet.dr, 20 MG PO DAILY, (Reported) Potassium Chloride 10 Meq Tablet.er, 10 MEQ PO DAILY, (Reported) Simvastatin 20 Mg Tablet, 20 MG PO HS, (Reported) Patient Home Medication List Home Medication List Reviewed: Yes Past [id number] Hx Patient Social History Marrital Status: Number of Children: 5 Living Status: LIVES AT HOME WITH HER DTR [place] Employed/Student: retired Alcohol Use: Denies Use Smoking Status: Former Smoker (22PACK YEAR) Former Smoker, Quit: Dec 27, 1995 Type Used: Cigarettes 2nd Hand Smoke Exposure: No Physical Abuse Screen: No Sexual Abuse: No Recent Foreign Travel: No Contact w/other who traveled: No Recent Hopitalizations: No Recent Infectious Disease Expo: No Immunizations Up To Date Tetanus Booster (TDap): Unknown Date of Pneumonia Vaccine: Aug 08, 2011 Date of Influenza Vaccine: Nov 07, 2016 Seasonal Allergies Seasonal Allergies: No Surgeries Yes (bilat hip replacement, wrist surgery, port, brain aneurysm removed) Hysterectomy, Joint Replacement Respiratory No Cardiovascular Yes Hypertension Neurological Yes (brain anuerysm) 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 System : No Hx 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 Disorders: No Genitourinary Yes Renal Failure (HISTORY OF RENAL FAILURE IN HOSPITAL, RESOLVED WITH HYDRATION, STILL SLIGHTLY RENAL INSUFFICIENT) Gastrointestinal Yes Chronic Constipation Musculoskeletal Yes Arthritis Endocrine History of Endocrine Disorders: Yes Endocrine Disorders: Diabetes, Non-Insulin dep Cancer No Psychosocial History of Psychiatric Problem: Yes Behavioral Health Disorders: Depression Integumentary History of Skin or Integumenta: No Blood Transfusions History of Blood Disorders: No Adverse Reaction to a Blood Tr: No Reviewed Nursing Assessment Reviewed/Agree w Nursing PMH: Yes Family Medical History Significant Family History: Heart Disease, Hypertension Review of Systems Constitutional: No chills, No fever; malaise, weakness, weight gain (25# IN 2 MONTHS) EENTM: hearing loss; No hoarseness, No throat pain Respiratory: No cough; dyspnea on exertion, orthopnea, short of breath Cardiovascular: No chest pain; edema; No palpitations Gastrointestinal: No abdominal pain, No loss of appetite, No nausea, No vomiting Genitourinary: frequency, incontinence : No Musculoskeletal: No back pain; joint pain, muscle weakness Skin: No dryness, No lesions, No rash Psychiatric/Neurological: Anxiety, Depressed All Other Systems Reviewed Negative Unless Noted: Yes Physical Exam Vital Signs Capillary Refill : Height, Weight, BMI Height: 5'8.00" Weight: 200lbs. 0.0oz. [id number]; 30.4 BMI Method:Stated General Appearance: No Apparent Distress, Moderate Distress, Obese Eyes: Bilateral Eye Normal Inspection, Bilateral Eye PERRL, Bilateral Eye EOMI HEENT: PERRL/EOMI, TMs Normal, Pharynx Normal Neck: Full Range of Motion, Non Tender, Supple Respiratory: Chest Non Tender, Lungs Clear, Normal Breath Sounds, No Accessory Muscle Use Cardiovascular: Regular Rate, Rhythm, Systolic Murmur (III/ LIZA) Gastrointestinal: Normal Bowel Sounds, No Organomegaly, No Pulsatile Mass, Non Tender, Other (NONTENDER, BUT EDEMATOUS) Rectal: Deferred Back: No CVA Tenderness Extremity: Pedal Edema (4+ PITTING ALON TO KNEES, 2+ AT POSTERIOR THIGH AND 1+ ABDOMEN) Neurologic/Psychiatric: Alert (BUT INTERMITTENTLY GROGGY), Oriented x3, No Motor/Sensory Deficits, Normal Mood/Affect Skin: Normal Color, Warm/Dry Assessment/Plan Assessment and Plan HYPOXEMIA EDEMA 25# WEIGHT GAIN OF FLUID IN 2 MONTHS DIABETES MELLITUS HYPERTENSION PERIPHERAL NEUROPATHY OA OF KNEES WEAKNESS SOMNOLENCE HYPOXEMIA -CHECK CHEST XRAY ON ADMISSION -START ON OXYGEN 2 LITERS NC AND MONITOR HER OXYGEN LEVELS EDEMA WITH 25# WEIGHT GAIN OF FLUID IN 2 MONTHS - START LASIX 40MG IV BID AND MONITOR HER I/O AND DAILY WEIGHT CLOSELY - ALSO CLOSE EYE ON RENAL FUNCTION. DIABETES MELLITUS - LEVEMIR AND REGULAR INSULIN - MONITOR ACCUCHECKS HYPERTENSION - MONITOR BLOOD PRESSURE RESUME HOME REGIMEN CHECK EKG AND ECHO PERIPHERAL NEUROPATHY - STARTED NEURONTIN 400MG BID OA OF KNEES - CHRONIC PAIN SYNDROME - CONTINUE WITH HYDROCODONE PRN FOR PAIN WEAKNESS - ONCE MEDICALLY STABLE, WILL NEED TO INITIATE PHYSICAL THERAPY - SHE WILL NEED TO GO TO THE [facility] ON DISCHARGE FOR STRENGTHENING SHE HAS BEEN SLOWLY DECLINING OVER THE PAST TWO MONTHS. SOMNOLENCE LOVENOX AND SCDS FOR DVT PROPHYLAXIS GI PROPHYLAXIS WITH PEPCID. Admission Diagnosis HYPOXEMIA EDEMA 25# WEIGHT GAIN OF FLUID IN 2 MONTHS DIABETES MELLITUS HYPERTENSION PERIPHERAL NEUROPATHY OA OF KNEES WEAKNESS SOMNOLENCE Admission Status: Inpatient Order (span 2 midnights) Reason for Inpatient Admission: PT HAS HYPOXEMIA, SEVERE EDEMA, AND WILL NEED MORE THAN TWO MIDNIGHTS IN THE HOSPITAL FOR STABILIZATION OF SYMPTOMS AND DETERMINATION OF FINAL DISCHARGE PLAN - MOST-LIKELY TO COR[facility], WILL ALSO DO A CARDIAC WORK-UP IF INIDICATED BY HER LABS AND EKG DEANGELO FIGUEROA MD Dec 11, 2017 12:43
--- OUTSIDE RECORDS SUMMARY | 2017-12-11 12:57 | XMS REPORT | Continuity of Care Document ---
Author Author [facility] Organization [facility] Address Unknown Phone Unavailable Allergies Active Description Code Type Severity Reaction Onset Reported/Identified Relationship to Patient Clinical Status Yes NKANo Known Allergies NKA Miscellaneous Allergy Unknown N/A 07/04/2011 Medications There is no data. Problems Date Dx Coded Attending Type Code Diagnosis Diagnosed By 09/26/2010 Ot 250.00 DIAB JENI WO COMPL, TYPE II OR UNSPEC TY 09/26/2010 Ot 276.8 HYPOPOTASSEMIA 09/26/2010 Ot 285.9 ANEMIA NOS 09/26/2010 Ot 305.1 TOBACCO USE DISORDER 09/26/2010 Ot 311 DEPRESSIVE DISORDER NEC 09/26/2010 Ot 401.9 HYPERTENSION NOS 09/26/2010 Ot 715.35 LOC OSTEOARTH NOS-PELVIS 09/30/2010 Ot 250.00 DIAB JENI WO COMPL, TYPE II OR UNSPEC TY 09/30/2010 Ot 272.4 HYPERLIPIDEMIA NEC/NOS 09/30/2010 Ot 311 DEPRESSIVE DISORDER NEC 09/30/2010 Ot 401.9 HYPERTENSION NOS 09/30/2010 Ot V12.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,NEC 09/30/2010 Ot V43.64 HIP JOINT REPLACEMENT STATUS 09/30/2010 Ot V54.81 AFTERCARE FOLLOWING JOINT REPLACEMENT 09/30/2010 Ot V57.1 PHYSICAL THERAPY NEC 09/30/2010 Ot V57.21 ENCOUNTER FOR OCCUPATIONAL THERAPY 07/04/2011 Ot 250.00 DIAB JENI WO COMPL, TYPE II OR UNSPEC TY 07/04/2011 Ot 272.0 PURE HYPERCHOLESTEROLEM 07/04/2011 Ot 276.8 HYPOPOTASSEMIA 07/04/2011 Ot 285.9 ANEMIA NOS 07/04/2011 Ot 401.9 HYPERTENSION NOS 07/04/2011 Ot 564.00 UNSPEC CONSTIPATION 07/04/2011 Ot 584.9 ACUTE RENAL FAILURE, UNSPECIFIED 07/04/2011 Ot 780.79 OTH MALAISE FATIGUE 07/04/2011 Ot 787.02 NAUSEA ALONE 07/04/2011 Ot V03.82 PROPHYLACTIC VACC AGAINST STREPTOCOCCUS 07/04/2011 Ot V04.81 ND FOR PROPHYLACTIC VACCIN AND INOCULATI 07/09/2011 Ot 250.00 DIAB JENI WO COMPL, TYPE II OR UNSPEC TY 07/09/2011 Ot 276.8 HYPOPOTASSEMIA 07/09/2011 Ot 285.9 ANEMIA NOS 07/09/2011 Ot 403.90 HYPTNSV CHR KID DIS, UNSPEC, W CHR KD ST 07/09/2011 Ot 564.00 UNSPEC CONSTIPATION 07/09/2011 Ot 584.9 ACUTE RENAL FAILURE, UNSPECIFIED 07/09/2011 Ot 585.9 CHRONIC KIDNEY DISEASE, UNSPECIFIED 07/09/2011 Ot 599.0 URIN TRACT INFECTION NOS 07/25/2011 Ot 038.9 SEPTICEMIA NOS 07/25/2011 Ot 041.04 STREPTOCOCCUS INFECTION NOS, GROUP D (EN 07/25/2011 Ot 250.40 DIAB W RENAL MANIFEST, TYPE II OR UNSPEC 07/25/2011 Ot 272.4 HYPERLIPIDEMIA NEC/NOS 07/25/2011 Ot 276.51 DEHYDRATION 07/25/2011 Ot 276.8 HYPOPOTASSEMIA 07/25/2011 Ot 285.9 ANEMIA NOS 07/25/2011 Ot 403.90 HYPTNSV CHR KID DIS, UNSPEC, W CHR KD ST 07/25/2011 Ot 427.31 ATRIAL FIBRILLATION 07/25/2011 Ot 486 PNEUMONIA, ORGANISM NOS 07/25/2011 Ot 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 07/25/2011 Ot 584.9 ACUTE RENAL FAILURE, UNSPECIFIED 07/25/2011 Ot 585.4 CHRONIC KIDNEY DISEASE, STAGE IV (SEVERE 07/25/2011 Ot 599.0 URIN TRACT INFECTION NOS 07/25/2011 Ot 715.35 LOC OSTEOARTH NOS-PELVIS 07/25/2011 Ot 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 07/25/2011 Ot 995.91 SEPSIS 07/25/2011 Ot V15.82 HISTORY OF TOBACCO USE 09/01/2011 Ot 211.3 BENIGN NEOPLASM LG BOWEL 09/01/2011 Ot 250.00 DIAB JENI WO COMPL, TYPE II OR UNSPEC TY 09/01/2011 Ot 272.4 HYPERLIPIDEMIA NEC/NOS 09/01/2011 Ot 276.0 HYPEROSMOLALITY 09/01/2011 Ot 276.50 VOLUME DEPLETION, UNSPECIFIED 09/01/2011 Ot 276.8 HYPOPOTASSEMIA 09/01/2011 Ot 285.9 ANEMIA NOS 09/01/2011 Ot 288.60 LEUKOCYTOSIS , UNSPECIFIED 09/01/2011 Ot 403.90 HYPTNSV CHR KID DIS, UNSPEC, W CHR KD ST 09/01/2011 Ot 427.31 ATRIAL FIBRILLATION 09/01/2011 Ot 530.81 ESOPHAGEAL REFLUX 09/01/2011 Ot 535.51 UNSPEC GASTRITIS GASTRODUODENITIS, W/ 09/01/2011 Ot 553.3 DIAPHRAGMATIC HERNIA 09/01/2011 Ot 555.9 REGIONAL ENTERITIS NOS 09/01/2011 Ot 562.10 DIVERTICULOSIS COLON (W/O MENT OF HEMORR 09/01/2011 Ot 564.00 UNSPEC CONSTIPATION 09/01/2011 Ot 569.82 ULCERATION OF INTESTINE 09/01/2011 Ot 584.9 ACUTE RENAL FAILURE, UNSPECIFIED 09/01/2011 Ot 585.9 CHRONIC KIDNEY DISEASE, UNSPECIFIED 09/01/2011 Ot 780.09 OTHER ALTERATION OF CONSCIOUSNESS 09/01/2011 Ot 788.20 RETENTION OF URINE NOS 09/01/2011 Ot 959.01 HEAD INJURY , NOS 09/01/2011 Ot 995.90 SYSTEMIC INFLAMMATORY RESPONSE SYNDROME 09/01/2011 Ot E000.8 OTHER EXTERNAL CAUSE STATUS 09/01/2011 Ot E849.0 ACCIDENT IN HOME 09/01/2011 Ot E888.1 FALL STRIKING OBJECT NEC 09/01/2011 Ot V12.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,NEC 09/01/2011 Ot V13.02 PERSONAL HISTORY, URINARY (TRACT) INFECT 09/01/2011 Ot V15.82 HISTORY OF TOBACCO USE 09/05/2011 Ot 038.9 SEPTICEMIA NOS 09/05/2011 Ot 250.00 DIAB JENI WO COMPL, TYPE II OR UNSPEC TY 09/05/2011 Ot 285.9 ANEMIA NOS 09/05/2011 Ot 403.90 HYPTNSV CHR KID DIS, UNSPEC, W CHR KD ST 09/05/2011 Ot 427.81 SINOATRIAL NODE DYSFUNCT 09/05/2011 Ot 530.81 ESOPHAGEAL REFLUX 09/05/2011 Ot 555.9 REGIONAL ENTERITIS NOS 09/05/2011 Ot 585.9 CHRONIC KIDNEY DISEASE, UNSPECIFIED 09/05/2011 Ot 995.91 SEPSIS 02/09/2012 Ot 250.00 DIAB JENI WO COMPL, TYPE II OR UNSPEC TY 02/09/2012 Ot 403.90 HYPTNSV CHR KID DIS, UNSPEC, W CHR KD ST 02/09/2012 Ot 458.9 HYPOTENSION NOS 02/09/2012 Ot 585.9 CHRONIC KIDNEY DISEASE, UNSPECIFIED 02/09/2012 Ot 715.90 OSTEOARTHROS NOS-UNSPEC 02/09/2012 Ot 780.2 SYNCOPE AND COLLAPSE 03/09/2012 Ot V58.81 FIT/ADJ VASCULAR CATHETER 06/21/2012 Ot V58.81 FIT/ADJ VASCULAR CATHETER 10/06/2012 CRISTIAN MCKNIGHT, DEANGELO Krishnamurthy Ot V58.81 FIT/ADJ VASCULAR CATHETER 01/30/2013 BRENDAN SPENCER Ot V58.81 FIT/ADJ VASCULAR CATHETER 06/05/2013 CRISTIAN MCKNIGHT, DEANGELO Krishnamurthy Ot V58.81 FIT/ADJ VASCULAR CATHETER 10/17/2013 CRISTIAN MCKNIGHT, DEANGELO Krishnamurthy Ot V58.81 FIT/ADJ VASCULAR CATHETER 02/06/2014 CRISTIAN MCKNIGHT, DEANGELO Krishnamurthy Ot 250.02 DIAB JENI WO COMPL, TYPE II OR UNSPEC TY 02/15/2014 Ot 250.02 02/15/2014 Ot 401.9 02/15/2014 Ot 780.52 02/15/2014 Ot 780.79 02/15/2014 Ot 250.02 02/15/2014 Ot 272.4 02/15/2014 Ot 401.9 02/15/2014 Ot 715.95 02/15/2014 Ot 715.95 02/15/2014 Ot 791.9 02/15/2014 Ot V72.63 02/15/2014 Ot V72.81 02/15/2014 Ot V74.8 02/15/2014 Ot 250.02 02/15/2014 Ot 401.9 02/15/2014 Ot V65.3 02/15/2014 Ot 285.9 02/15/2014 Ot 586 02/15/2014 Ot 585.9 02/15/2014 Ot 586 02/15/2014 Ot 555.9 02/15/2014 Ot V72.84 02/15/2014 Ot 285.9 02/15/2014 Ot 401.9 02/15/2014 Ot 586 02/15/2014 Ot 599.0 02/15/2014 Ot 780.79 02/15/2014 Ot 285.9 02/15/2014 Ot 586 02/15/2014 Ot 250.00 02/15/2014 Ot 401.9 02/15/2014 Ot V58.81 02/15/2014 Ot 250.00 02/15/2014 Ot 403.90 02/15/2014 Ot 585.9 02/15/2014 Ot 250.00 02/15/2014 Ot 403.90 02/15/2014 Ot 585.3 02/15/2014 Ot 250.00 02/15/2014 Ot 401.9 02/15/2014 MILI SPENCERHANIE Agustina ESTIMATOR PAPERBOARD BOXES Ot 250.00 02/15/2014 BRENDAN SPENCER ESTIMATOR PAPERBOARD BOXES Ot 311 02/15/2014 BRENDAN SPENCER ESTIMATOR PAPERBOARD BOXES Ot 401.9 02/15/2014 MILI SPENCERHANIE Agustina ESTIMATOR PAPERBOARD BOXES Ot 586 02/15/2014 BRENDAN SPENCER Agustina ESTIMATOR PAPERBOARD BOXES Ot V58.69 02/15/2014 CRISTIAN MCKNIGHT, DEANGELO A Ot 250.00 02/15/2014 CRISTIAN MCKNIGHT, DEANGELO A Ot 272.4 02/15/2014 CRISTIAN MCKNIGHT, DEANGELO A Ot 401.9 02/15/2014 CRISTIAN MCKNIGHT, DEANGELO A Ot V58.69 02/15/2014 Ot V58.81 02/15/2014 CRISTIAN MCKNIGHT, DEANGELO A Ot 250.00 02/15/2014 CRISTIAN MCKNIGHT, DEANGELO A Ot 298.9 02/15/2014 CRISTIAN MCKNIGHT, DEANGELO A Ot 401.9 02/15/2014 CRISTIAN MCKNIGHT, DEANGELO A Ot 780.79 02/15/2014 BRENDAN SPENCER ESTIMATOR PAPERBOARD BOXES Ot 250.00 02/15/2014 BRENDAN SPENCER ESTIMATOR PAPERBOARD BOXES Ot 272.4 02/15/2014 BRENDAN SPENCER ESTIMATOR PAPERBOARD BOXES Ot 401.9 02/15/2014 BRENDAN SPENCER ESTIMATOR PAPERBOARD BOXES Ot V58.69 02/15/2014 BRENDAN SPENCER ESTIMATOR PAPERBOARD BOXES Ot V58.81 02/15/2014 CRISTIAN MCKNIGHT, DEANGELO A Ot 250.02 02/15/2014 CRISTIAN MCKNIGHT, DEANGELO A Ot 250.00 02/15/2014 CRISTIAN MCKNIGHT, DEANGELO A Ot 298.9 02/15/2014 CRISTIAN MCKNIGHT, DEANGELO A Ot 401.9 02/15/2014 CRISTIAN MCKNIGHT, DEANGELO A Ot 780.79 02/20/2014 BRENDAN SPENCER ESTIMATOR PAPERBOARD BOXES Ot V58.81 FIT/ADJ VASCULAR CATHETER 03/07/2014 CRISTIAN MCKNIGHT, DEANGELO A Ot 250.00 03/07/2014 CRISTIAN MCKNIGHT, DEANGELO A Ot 298.9 03/07/2014 CRISTIAN MCKNIGHT, DEANGELO A Ot 401.9 03/07/2014 CRISTIAN MCKNIGHT, DEANGELO A Ot 780.79 03/07/2014 BRENDAN SPENCER ESTIMATOR PAPERBOARD BOXES Ot 250.00 03/07/2014 BRENDAN SPENCER ESTIMATOR PAPERBOARD BOXES Ot 272.4 03/07/2014 BRENDAN SPENCER ESTIMATOR PAPERBOARD BOXES Ot 401.9 03/07/2014 BRENDAN SPENCER ESTIMATOR PAPERBOARD BOXES Ot V58.69 06/16/2014 CHADWICK MCKNIGHT, LISSA Ot 211.3 BENIGN NEOPLASM LG BOWEL 06/16/2014 CHADWICK MCKNIGHT, LISSA Ot 455.0 INT HEMORRHOID W/O COMPL 06/16/2014 LISSA GENAO MD Ot 455.3 EXT HEMORRHOID W/O COMPL 06/16/2014 CHADWICK MCKNIGHT, LISSA Ot 562.10 DIVERTICULOSIS COLON (W/O MENT OF HEMORR 06/16/2014 LISSA GENAO MD Ot V76.51 SCREEN MAL NEOP-COLON 06/28/2014 CHADWICK MCKNIGHT, LISSA Ot V72.84 06/28/2014 LISSA GENAO MD Ot V72.84 07/04/2014 BRENDAN SPENCER ESTIMATOR PAPERBOARD BOXES Ot V58.81 08/14/2014 BRENDAN SPENCER ESTIMATOR PAPERBOARD BOXES Ot V58.81 FIT/ADJ VASCULAR CATHETER 09/05/2014 BRENDAN SPENCER ESTIMATOR PAPERBOARD BOXES Ot V58.81 09/05/2014 BRENDAN SPENCER ESTIMATOR PAPERBOARD BOXES Ot V58.81 09/05/2014 BRENDAN SPENCER ESTIMATOR PAPERBOARD BOXES Ot V58.81 09/06/2014 BRENDAN SPENCER ESTIMATOR PAPERBOARD BOXES Ot V58.81 09/11/2014 BRENDAN SPENCER ESTIMATOR PAPERBOARD BOXES Ot 250.00 09/11/2014 BRENDAN SPENCER ESTIMATOR PAPERBOARD BOXES Ot 401.9 09/11/2014 BRENDAN SPENCER ESTIMATOR PAPERBOARD BOXES Ot V58.69 09/11/2014 BRENDAN SPENCER ESTIMATOR PAPERBOARD BOXES Ot V72.62 09/21/2014 BRENDAN SPENCER ESTIMATOR PAPERBOARD BOXES Ot 250.00 09/21/2014 BRENDAN SPENCER ESTIMATOR PAPERBOARD BOXES Ot 401.9 09/21/2014 BRENDAN SPENCER ESTIMATOR PAPERBOARD BOXES Ot V58.69 09/21/2014 BRENDAN SPENCER ESTIMATOR PAPERBOARD BOXES Ot V72.62 10/17/2014 BRENDAN SPENCER ESTIMATOR PAPERBOARD BOXES Ot 250.00 10/17/2014 BRENDAN SPENCER ESTIMATOR PAPERBOARD BOXES Ot 401.9 10/17/2014 BRENDAN SPENCER ESTIMATOR PAPERBOARD BOXES Ot V58.69 10/17/2014 BRENDAN SPENCER ESTIMATOR PAPERBOARD BOXES Ot V72.62 12/04/2014 BRENDAN SPENCER ESTIMATOR PAPERBOARD BOXES Ot 250.00 DIAB JENI WO COMPL, TYPE II OR UNSPEC TY 12/04/2014 BRENDAN SPENCER ESTIMATOR PAPERBOARD BOXES Ot 401.9 HYPERTENSION NOS 12/04/2014 BRENDAN SPENCER ESTIMATOR PAPERBOARD BOXES Ot E11.9 TYPE 2 DIABETES MELLITUS WITHOUT COMPLIC 12/04/2014 BRENDAN SPENCER ESTIMATOR PAPERBOARD BOXES Ot I10 ESSENTIAL (PRIMARY) HYPERTENSION 12/04/2014 BRENDAN SPENCERP Ot V58.69 OTH MED,LT,CURRENT USE 12/04/2014 BRENDAN SPENCER ESTIMATOR PAPERBOARD BOXES Ot V72.62 LAB EXAM ORDERED PART OF A ROUTINE GE 12/04/2014 BRENDAN SPENCER ESTIMATOR PAPERBOARD BOXES Ot Z00.00 ENCNTR FOR GENERAL ADULT MEDICAL EXAM W/ 12/05/2014 BRENDAN SPENCER ESTIMATOR PAPERBOARD BOXES Ot 250.00 12/05/2014 BRENDAN SPENCER ESTIMATOR PAPERBOARD BOXES Ot 401.9 12/05/2014 BRENDAN SPENCER ESTIMATOR PAPERBOARD BOXES Ot V58.69 12/05/2014 BRENDAN SPENCER ESTIMATOR PAPERBOARD BOXES Ot V72.62 12/05/2014 BRENDAN SPENCER ESTIMATOR PAPERBOARD BOXES Ot 250.00 12/05/2014 BRENDAN SPENCER ESTIMATOR PAPERBOARD BOXES Ot 401.9 12/05/2014 BRENDAN SPENCER ESTIMATOR PAPERBOARD BOXES Ot V58.69 12/05/2014 BRENDAN SPENCER ESTIMATOR PAPERBOARD BOXES Ot V72.62 12/06/2014 BRENDAN SPENCER ESTIMATOR PAPERBOARD BOXES Ot 250.00 DIAB JENI WO COMPL, TYPE II OR UNSPEC TY 12/06/2014 BRENDAN SPENCER ESTIMATOR PAPERBOARD BOXES Ot 401.9 HYPERTENSION NOS 12/06/2014 BRENDAN SPENCER ESTIMATOR PAPERBOARD BOXES Ot V58.69 OTH MED,LT,CURRENT USE 12/06/2014 BRENDAN SPENCER ESTIMATOR PAPERBOARD BOXES Ot V58.81 FIT/ADJ VASCULAR CATHETER 12/06/2014 BRENDAN SPENCER ESTIMATOR PAPERBOARD BOXES Ot V72.62 LAB EXAM ORDERED PART OF A ROUTINE GE 12/06/2014 BRENDAN SPENCER ESTIMATOR PAPERBOARD BOXES Ot 250.00 12/06/2014 BRENDAN SPENCER ESTIMATOR PAPERBOARD BOXES Ot 401.9 12/06/2014 BRENDAN SPENCER ESTIMATOR PAPERBOARD BOXES Ot V58.69 12/06/2014 BRENDAN SPENCER ESTIMATOR PAPERBOARD BOXES Ot V72.62 01/18/2015 BRENDAN SPENCER ESTIMATOR PAPERBOARD BOXES Ot 250.00 01/18/2015 TJ BRENDAN M ESTIMATOR PAPERBOARD BOXES Ot 401.9 01/18/2015 BRENDAN SPENCER ESTIMATOR PAPERBOARD BOXES Ot V58.69 01/18/2015 BRENDAN SPENCER ESTIMATOR PAPERBOARD BOXES Ot V58.81 01/18/2015 BRENDAN SPENCER ESTIMATOR PAPERBOARD BOXES Ot V72.62 01/19/2015 BRENDAN SPENCER ESTIMATOR PAPERBOARD BOXES Ot 250.00 01/19/2015 BRENDAN SPENCER ESTIMATOR PAPERBOARD BOXES Ot 401.9 01/19/2015 BRENDAN SPENCER ESTIMATOR PAPERBOARD BOXES Ot V58.69 01/19/2015 BRENDAN SPENCER ESTIMATOR PAPERBOARD BOXES Ot V58.81 01/19/2015 BRENDAN SPENCER ESTIMATOR PAPERBOARD BOXES Ot V72.62 01/22/2015 BRENDAN SPENCER ESTIMATOR PAPERBOARD BOXES Ot 250.00 01/22/2015 BRENDAN SPENCER ESTIMATOR PAPERBOARD BOXES Ot 401.9 01/22/2015 BRENDAN SPENCER ESTIMATOR PAPERBOARD BOXES Ot V58.69 01/22/2015 BRENDAN SPENCER ESTIMATOR PAPERBOARD BOXES Ot V58.81 01/22/2015 BRENDAN SPENCER ESTIMATOR PAPERBOARD BOXES Ot V72.62 02/16/2015 BRENDAN SPENCER ESTIMATOR PAPERBOARD BOXES Ot E11.9 02/16/2015 BRENDAN SPENCER ESTIMATOR PAPERBOARD BOXES Ot I10 02/16/2015 BRENDAN SPENCER ESTIMATOR PAPERBOARD BOXES Ot Z01.812 02/16/2015 BRENDAN SPENCER ESTIMATOR PAPERBOARD BOXES Ot Z45.2 02/16/2015 BRENDAN SPENCER ESTIMATOR PAPERBOARD BOXES Ot Z79.899 03/07/2015 BRENDAN SPENCER ESTIMATOR PAPERBOARD BOXES Ot E11.9 03/07/2015 BRENDAN SPENCER ESTIMATOR PAPERBOARD BOXES Ot I10 03/07/2015 BRENDAN SPENCER ESTIMATOR PAPERBOARD BOXES Ot Z01.812 03/07/2015 BRENDAN SPENCER ESTIMATOR PAPERBOARD BOXES Ot Z45.2 03/07/2015 BRENDAN SPENCER ESTIMATOR PAPERBOARD BOXES Ot Z79.899 03/21/2015 BRENDAN SPENCER ESTIMATOR PAPERBOARD BOXES Ot E11.9 03/21/2015 BRENDAN SPENCER ESTIMATOR PAPERBOARD BOXES Ot I10 03/21/2015 BRENDAN SPENCER ESTIMATOR PAPERBOARD BOXES Ot Z01.812 03/21/2015 BRENDAN SPENCER ESTIMATOR PAPERBOARD BOXES Ot Z45.2 03/21/2015 BRENDAN SPENCER ESTIMATOR PAPERBOARD BOXES Ot Z79.899 04/18/2015 BRENDAN SPENCER ESTIMATOR PAPERBOARD BOXES Ot E11.9 TYPE 2 DIABETES MELLITUS WITHOUT COMPLIC 04/18/2015 BRENDAN SPENCER ESTIMATOR PAPERBOARD BOXES Ot I10 ESSENTIAL (PRIMARY) HYPERTENSION 04/18/2015 BRENDAN SPENCER ESTIMATOR PAPERBOARD BOXES Ot Z01.812 ENCOUNTER FOR PREPROCEDURAL LABORATORY E 04/18/2015 BRENDAN SPENCER ESTIMATOR PAPERBOARD BOXES Ot Z45.2 ENCOUNTER FOR ADJUSTMENT AND MANAGEMENT 04/18/2015 BRENDAN SPENCER ESTIMATOR PAPERBOARD BOXES Ot Z79.899 OTHER HALF-WAY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 THERAPY 04/30/2015 BRENDAN SPENCER ESTIMATOR PAPERBOARD BOXES Ot E11.9 04/30/2015 BRENDAN SPENCER ESTIMATOR PAPERBOARD BOXES Ot I10 04/30/2015 BRENDAN SPENCER ESTIMATOR PAPERBOARD BOXES Ot Z01.812 04/30/2015 BRENDAN SPENCER ESTIMATOR PAPERBOARD BOXES Ot Z45.2 04/30/2015 BRENDAN SPENCER ESTIMATOR PAPERBOARD BOXES Ot Z79.899 04/30/2015 BRENDAN SPENCER ESTIMATOR PAPERBOARD BOXES Ot E11.9 04/30/2015 BRENDAN SPENCER ESTIMATOR PAPERBOARD BOXES Ot I10 04/30/2015 BRENDAN SPENCER ESTIMATOR PAPERBOARD BOXES Ot Z01.812 04/30/2015 BRENDAN SPENCER ESTIMATOR PAPERBOARD BOXES Ot Z45.2 04/30/2015 BRENDAN SPENCER ESTIMATOR PAPERBOARD BOXES Ot Z79.899 04/30/2015 BRENDAN SPENCER ESTIMATOR PAPERBOARD BOXES Ot E11.9 04/30/2015 BRENDAN SPENCER ESTIMATOR PAPERBOARD BOXES Ot I10 04/30/2015 BRENDAN SPENCER ESTIMATOR PAPERBOARD BOXES Ot Z01.812 04/30/2015 BRENDAN SPENCER ESTIMATOR PAPERBOARD BOXES Ot Z45.2 04/30/2015 TJBRENDAN Agustina ESTIMATOR PAPERBOARD BOXES Ot Z79.899 05/11/2015 VERONICA COFFMAN REVENUE DIRECTOR Ot E11.9 05/11/2015 VERONICA COFFMAN REVENUE DIRECTOR Ot Z00.00 06/21/2015 TJ BRENDAN Berrios ESTIMATOR PAPERBOARD BOXES Ot E11.9 06/21/2015 BRENDAN SPENCER ESTIMATOR PAPERBOARD BOXES Ot I10 06/21/2015 BRENDAN SPENCER ESTIMATOR PAPERBOARD BOXES Ot Z01.812 06/21/2015 BRENDAN SPENCER ESTIMATOR PAPERBOARD BOXES Ot Z45.2 06/21/2015 TJ BRENDAN Agustina ESTIMATOR PAPERBOARD BOXES Ot Z79.899 06/21/2015 MIKE SPENCERIE Agustina ESTIMATOR PAPERBOARD BOXES Ot E11.9 06/21/2015 BRENDAN SPENCER ESTIMATOR PAPERBOARD BOXES Ot I10 06/21/2015 BRENDAN SPENCER ESTIMATOR PAPERBOARD BOXES Ot Z01.812 06/21/2015 BRENDAN SPENCER ESTIMATOR PAPERBOARD BOXES Ot Z45.2 06/21/2015 BRENDAN SPENCER ESTIMATOR PAPERBOARD BOXES Ot Z79.899 06/28/2015 BRENDAN SPENCER ESTIMATOR PAPERBOARD BOXES Ot E11.9 TYPE 2 DIABETES MELLITUS WITHOUT COMPLIC 06/28/2015 BRENDAN SPENCER ESTIMATOR PAPERBOARD BOXES Ot I10 ESSENTIAL (PRIMARY) HYPERTENSION 06/28/2015 BRENDAN SPENCER ESTIMATOR PAPERBOARD BOXES Ot Z01.812 ENCOUNTER FOR PREPROCEDURAL LABORATORY E 06/28/2015 BRENDAN SPENCER ESTIMATOR PAPERBOARD BOXES Ot Z45.2 ENCOUNTER FOR ADJUSTMENT AND MANAGEMENT 06/28/2015 BRENDAN SPENCER ESTIMATOR PAPERBOARD BOXES Ot Z79.899 OTHER HALF-WAY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 THERAPY 07/04/2015 CRISTIAN MCKNIGHT, DEANGELO Krishnamurthy Ot 250.02 DIAB JENI WO COMPL, TYPE II OR UNSPEC TY 07/04/2015 BRENDAN SPENCER ESTIMATOR PAPERBOARD BOXES Ot E11.9 TYPE 2 DIABETES MELLITUS WITHOUT COMPLIC 07/04/2015 BRENADN SPENCER ESTIMATOR PAPERBOARD BOXES Ot I10 ESSENTIAL (PRIMARY) HYPERTENSION 07/04/2015 BRENDAN SPENCER ESTIMATOR PAPERBOARD BOXES Ot Z01.812 ENCOUNTER FOR PREPROCEDURAL LABORATORY E 07/04/2015 BRENDAN SPENCER ESTIMATOR PAPERBOARD BOXES Ot Z45.2 ENCOUNTER FOR ADJUSTMENT AND MANAGEMENT 07/04/2015 BRENDAN SPENCER ESTIMATOR PAPERBOARD BOXES Ot 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 07/24/2015 BRENDAN SPENCER ESTIMATOR PAPERBOARD BOXES Ot E11.9 TYPE 2 DIABETES MELLITUS WITHOUT COMPLIC 07/24/2015 BRENDAN SPENCER ESTIMATOR PAPERBOARD BOXES Ot I10 ESSENTIAL (PRIMARY) HYPERTENSION 07/24/2015 BRENDAN SPENCER ESTIMATOR PAPERBOARD BOXES Ot Z01.812 ENCOUNTER FOR PREPROCEDURAL LABORATORY E 07/24/2015 BRENDAN SPENCER ESTIMATOR PAPERBOARD BOXES Ot Z45.2 ENCOUNTER FOR ADJUSTMENT AND MANAGEMENT 07/24/2015 BRENDAN SPENCER ESTIMATOR PAPERBOARD BOXES Ot Z79.899 OTHER HALF-WAY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 THERAPY 07/29/2015 BRENDAN SPENCER ESTIMATOR PAPERBOARD BOXES Ot E11.9 TYPE 2 DIABETES MELLITUS WITHOUT COMPLIC 07/29/2015 BRENDAN SPENCER ESTIMATOR PAPERBOARD BOXES Ot I10 ESSENTIAL (PRIMARY) HYPERTENSION 07/29/2015 BRENDAN SPENCER ESTIMATOR PAPERBOARD BOXES Ot Z01.812 ENCOUNTER FOR PREPROCEDURAL LABORATORY E 07/29/2015 BRENDNA SPENCER ESTIMATOR PAPERBOARD BOXES Ot Z45.2 ENCOUNTER FOR ADJUSTMENT AND MANAGEMENT 07/29/2015 BRENDAN SPENCER ESTIMATOR PAPERBOARD BOXES Ot 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 08/13/2015 RBENDAN SPENCER ESTIMATOR PAPERBOARD BOXES Ot E11.65 TYPE 2 DIABETES MELLITUS WITH HYPERGLYCE 08/28/2015 BRENDAN SPENCER ESTIMATOR PAPERBOARD BOXES Ot E11.65 TYPE 2 DIABETES MELLITUS WITH HYPERGLYCE 08/28/2015 BRENDAN SPENCER ESTIMATOR PAPERBOARD BOXES Ot I12.9 HYPERTENSIVE CHRONIC KIDNEY DISEASE W ST 08/28/2015 BRENDAN SPENCER ESTIMATOR PAPERBOARD BOXES Ot N18.3 CHRONIC KIDNEY DISEASE, STAGE 3 (MODERAT 09/06/2015 BRENDAN SPENCER ESTIMATOR PAPERBOARD BOXES Ot E11.65 TYPE 2 DIABETES MELLITUS WITH HYPERGLYCE 09/06/2015 BRENDAN SPENCER ESTIMATOR PAPERBOARD BOXES Ot I12.9 HYPERTENSIVE CHRONIC KIDNEY DISEASE W ST 09/06/2015 BRENDAN SPENCER ESTIMATOR PAPERBOARD BOXES Ot N18.3 CHRONIC KIDNEY DISEASE, STAGE 3 (MODERAT 09/24/2015 BRENDAN SPENCER ESTIMATOR PAPERBOARD BOXES Ot E11.9 TYPE 2 DIABETES MELLITUS WITHOUT COMPLIC 09/24/2015 BRENDAN SPENCER ESTIMATOR PAPERBOARD BOXES Ot I10 ESSENTIAL (PRIMARY) HYPERTENSION 09/24/2015 BRENDAN SPENCER ESTIMATOR PAPERBOARD BOXES Ot Z01.812 ENCOUNTER FOR PREPROCEDURAL LABORATORY E 09/24/2015 BRENDAN SPENCER ESTIMATOR PAPERBOARD BOXES Ot Z45.2 ENCOUNTER FOR ADJUSTMENT AND MANAGEMENT 09/24/2015 BRENDAN SPENCER ESTIMATOR PAPERBOARD BOXES Ot Z79.899 OTHER HALF-WAY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 THERAPY 09/24/2015 BRENDAN SPENCER ESTIMATOR PAPERBOARD BOXES Ot E11.9 TYPE 2 DIABETES MELLITUS WITHOUT COMPLIC 09/24/2015 BRENDAN SPENCER ESTIMATOR PAPERBOARD BOXES Ot I10 ESSENTIAL (PRIMARY) HYPERTENSION 09/24/2015 BRENDAN SPENCER ESTIMATOR PAPERBOARD BOXES Ot Z01.812 ENCOUNTER FOR PREPROCEDURAL LABORATORY E 09/24/2015 BRENDAN SPENCER ESTIMATOR PAPERBOARD BOXES Ot Z45.2 ENCOUNTER FOR ADJUSTMENT AND MANAGEMENT 09/24/2015 BRENDAN SPENCER ESTIMATOR PAPERBOARD BOXES Ot 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 10/19/2015 BRENDAN SPENCERP Ot E11.9 TYPE 2 DIABETES MELLITUS WITHOUT COMPLIC 10/19/2015 BRENDAN SPENCER ESTIMATOR PAPERBOARD BOXES Ot I10 ESSENTIAL (PRIMARY) HYPERTENSION 10/19/2015 BRENDAN SPENCER ESTIMATOR PAPERBOARD BOXES Ot Z01.812 ENCOUNTER FOR PREPROCEDURAL LABORATORY E 10/19/2015 BRENDAN SPENCER ESTIMATOR PAPERBOARD BOXES Ot Z45.2 ENCOUNTER FOR ADJUSTMENT AND MANAGEMENT 10/19/2015 BRENDAN SPENCER ESTIMATOR PAPERBOARD BOXES Ot Z79.899 OTHER HALF-WAY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 THERAPY 10/31/2015 BRENDAN SPENCERP Ot E11.9 TYPE 2 DIABETES MELLITUS WITHOUT COMPLIC 10/31/2015 BRENDAN SPENCER ESTIMATOR PAPERBOARD BOXES Ot I10 ESSENTIAL (PRIMARY) HYPERTENSION 10/31/2015 BRENDAN SPENCER ESTIMATOR PAPERBOARD BOXES Ot Z01.812 ENCOUNTER FOR PREPROCEDURAL LABORATORY E 10/31/2015 BRENDAN SPENCER ESTIMATOR PAPERBOARD BOXES Ot Z45.2 ENCOUNTER FOR ADJUSTMENT AND MANAGEMENT 10/31/2015 BRENDAN SPENCER ESTIMATOR PAPERBOARD BOXES Ot 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 11/19/2015 BRENDAN SPENCER ESTIMATOR PAPERBOARD BOXES Ot E11.65 TYPE 2 DIABETES MELLITUS WITH HYPERGLYCE 11/19/2015 BRENDAN SPENCER ESTIMATOR PAPERBOARD BOXES Ot I12.9 HYPERTENSIVE CHRONIC KIDNEY DISEASE W ST 11/19/2015 BRENDAN SPENCER ESTIMATOR PAPERBOARD BOXES Ot N18.3 CHRONIC KIDNEY DISEASE, STAGE 3 (MODERAT 11/19/2015 BRENDAN SPENCER ESTIMATOR PAPERBOARD BOXES Ot E11.9 TYPE 2 DIABETES MELLITUS WITHOUT COMPLIC 11/19/2015 TJBRENDAN ESTIMATOR PAPERBOARD BOXES Ot I10 ESSENTIAL (PRIMARY) HYPERTENSION 11/19/2015 SPENCERBRENDAN ESTIMATOR PAPERBOARD BOXES Ot Z01.812 ENCOUNTER FOR PREPROCEDURAL LABORATORY E 11/19/2015 BRENDAN SPENCER ESTIMATOR PAPERBOARD BOXES Ot Z45.2 ENCOUNTER FOR ADJUSTMENT AND MANAGEMENT 11/19/2015 BRENDAN SPENCER ESTIMATOR PAPERBOARD BOXES Ot Z79.899 OTHER HALF-WAY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 THERAPY 12/10/2015 SPENCERBRENDAN ESTIMATOR PAPERBOARD BOXES Ot E11.9 TYPE 2 DIABETES MELLITUS WITHOUT COMPLIC 12/10/2015 BRENDAN SPENCER ESTIMATOR PAPERBOARD BOXES Ot I10 ESSENTIAL (PRIMARY) HYPERTENSION 12/10/2015 SPENCERBRENDAN ESTIMATOR PAPERBOARD BOXES Ot Z01.812 ENCOUNTER FOR PREPROCEDURAL LABORATORY E 12/10/2015 BRENDAN SPENCER ESTIMATOR PAPERBOARD BOXES Ot Z45.2 ENCOUNTER FOR ADJUSTMENT AND MANAGEMENT 12/10/2015 BRENDAN SPENCER ESTIMATOR PAPERBOARD BOXES Ot Z79.899 OTHER HALF-WAY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 THERAPY 12/13/2015 Ot 250.02 DIAB JENI WO COMPL, TYPE II OR UNSPEC TY 12/13/2015 Ot 272.4 HYPERLIPIDEMIA NEC/NOS 12/13/2015 Ot 401.9 HYPERTENSION NOS 12/13/2015 Ot 715.95 OSTEOARTHROS NOS-PELVIS 12/13/2015 Ot 715.95 OSTEOARTHROS NOS-PELVIS 12/13/2015 Ot 791.9 ABN URINE FINDINGS NEC 12/13/2015 Ot V72.63 PRE- PROCEDURAL LABORATORY EXAMINATION 12/13/2015 Ot V72.81 EXAM-PRE- OPERATIVE CARDIOVASCULAR 12/13/2015 Ot V74.8 SCREEN- BACTERIAL DIS NEC 12/13/2015 Ot 250.02 DIAB JENI WO COMPL, TYPE II OR UNSPEC TY 12/13/2015 Ot 401.9 HYPERTENSION NOS 12/13/2015 Ot 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 12/13/2015 Ot 285.9 ANEMIA NOS 12/13/2015 Ot 586 RENAL FAILURE NOS 12/13/2015 Ot 585.9 CHRONIC KIDNEY DISEASE, UNSPECIFIED 12/13/2015 Ot 586 RENAL FAILURE NOS 12/13/2015 Ot 555.9 REGIONAL ENTERITIS NOS 12/13/2015 Ot V72.84 EXAM PRE- OPERATIVE NOS 12/13/2015 Ot 285.9 ANEMIA NOS 12/13/2015 Ot 401.9 HYPERTENSION NOS 12/13/2015 Ot 586 RENAL FAILURE NOS 12/13/2015 Ot 599.0 URIN TRACT INFECTION NOS 12/13/2015 Ot 780.79 OTH MALAISE FATIGUE 12/13/2015 Ot 285.9 ANEMIA NOS 12/13/2015 Ot 586 RENAL FAILURE NOS 12/13/2015 Ot 250.00 DIAB JENI WO COMPL, TYPE II OR UNSPEC TY 12/13/2015 Ot 401.9 HYPERTENSION NOS 12/13/2015 Ot V58.81 FIT/ADJ VASCULAR CATHETER 12/13/2015 Ot 250.00 DIAB JENI WO COMPL, TYPE II OR UNSPEC TY 12/13/2015 Ot 403.90 HYPTNSV CHR KID DIS, UNSPEC, W CHR KD ST 12/13/2015 Ot 585.9 CHRONIC KIDNEY DISEASE, UNSPECIFIED 12/13/2015 Ot 250.00 DIAB JENI WO COMPL, TYPE II OR UNSPEC TY 12/13/2015 Ot 403.90 HYPTNSV CHR KID DIS, UNSPEC, W CHR KD ST 12/13/2015 Ot 585.3 CHRONIC KIDNEY DISEASE, STAGE III (MODER 12/13/2015 Ot 250.00 DIAB JENI WO COMPL, TYPE II OR UNSPEC TY 12/13/2015 Ot 401.9 HYPERTENSION NOS 12/13/2015 BRENDAN SPENCER ESTIMATOR PAPERBOARD BOXES Ot 250.00 DIAB JENI WO COMPL, TYPE II OR UNSPEC TY 12/13/2015 BRENDAN SPENCER ESTIMATOR PAPERBOARD BOXES Ot 311 DEPRESSIVE DISORDER NEC 12/13/2015 BRENDAN SPENCER ESTIMATOR PAPERBOARD BOXES Ot 401.9 HYPERTENSION NOS 12/13/2015 BRENDAN SPENCER ESTIMATOR PAPERBOARD BOXES Ot 586 RENAL FAILURE NOS 12/13/2015 BRENDAN SPENCER ESTIMATOR PAPERBOARD BOXES Ot V58.69 OTH MED,LT,CURRENT USE 12/13/2015 DEANGELO FOSTER MD Ot 250.00 DIAB JENI WO COMPL, TYPE II OR UNSPEC TY 12/13/2015 DEANGELO FOSTER MD Ot 272.4 HYPERLIPIDEMIA NEC/NOS 12/13/2015 DEANGELO FOSTER MD Ot 401.9 HYPERTENSION NOS 12/13/2015 DEANGELO FOSTER MD Ot V58.69 OTH MED,LT,CURRENT USE 12/13/2015 Ot V58.81 FIT/ADJ VASCULAR CATHETER 12/13/2015 DEANGELO FOSTER MD Ot 250.00 DIAB JENI WO COMPL, TYPE II OR UNSPEC TY 12/13/2015 DEANGELO FOSTER MD Ot 298.9 PSYCHOSIS NOS 12/13/2015 DEANGELO FOSTER MD Ot 401.9 HYPERTENSION NOS 12/13/2015 DEANGELO FOSTER MD Ot 780.79 OTH MALAISE FATIGUE 12/13/2015 BRENDAN SPENCER ESTIMATOR PAPERBOARD BOXES Ot 250.00 DIAB JENI WO COMPL, TYPE II OR UNSPEC TY 12/13/2015 BRENDAN SPENCERP Ot 272.4 HYPERLIPIDEMIA NEC/NOS 12/13/2015 BRENDAN SPENCER ESTIMATOR PAPERBOARD BOXES Ot 401.9 HYPERTENSION NOS 12/13/2015 BRENDAN SPENCER ESTIMATOR PAPERBOARD BOXES Ot V58.69 OTH MED,LT,CURRENT USE 12/13/2015 DEANGELO FOSTER MD Ot 250.02 DIAB JENI WO COMPL, TYPE II OR UNSPEC TY 12/13/2015 CHADWICK MCKNIGHT, LISSA Ot V72.84 EXAM PRE-OPERATIVE NOS 12/13/2015 VERONICA COFFMAN REVENUE DIRECTOR Ot E11.9 TYPE 2 DIABETES MELLITUS WITHOUT COMPLIC 12/13/2015 VERONICA COFFMAN REVENUE DIRECTOR Ot Z00.00 ENCNTR FOR GENERAL ADULT MEDICAL EXAM W/ 12/13/2015 BRENDAN SPENCER ESTIMATOR PAPERBOARD BOXES Ot E11.9 TYPE 2 DIABETES MELLITUS WITHOUT COMPLIC 12/13/2015 BRENDAN SPENCER ESTIMATOR PAPERBOARD BOXES Ot I10 ESSENTIAL (PRIMARY) HYPERTENSION 12/13/2015 BRENDAN SPENCER ESTIMATOR PAPERBOARD BOXES Ot Z01.812 ENCOUNTER FOR PREPROCEDURAL LABORATORY E 12/13/2015 BRENDAN SPENCERP Ot Z45.2 ENCOUNTER FOR ADJUSTMENT AND MANAGEMENT 12/13/2015 BRENDAN SPENCER ESTIMATOR PAPERBOARD BOXES Ot Z79.899 OTHER HALF-WAY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 THERAPY 12/13/2015 BRENDAN SPENCER ESTIMATOR PAPERBOARD BOXES Ot E11.65 TYPE 2 DIABETES MELLITUS WITH HYPERGLYCE 12/13/2015 BRENDAN SPENCER ESTIMATOR PAPERBOARD BOXES Ot I12.9 HYPERTENSIVE CHRONIC KIDNEY DISEASE W ST 12/13/2015 BRENDAN SPENCER ESTIMATOR PAPERBOARD BOXES Ot N18.3 CHRONIC KIDNEY DISEASE, STAGE 3 (MODERAT 12/14/2015 BRENDAN SPENCER ESTIMATOR PAPERBOARD BOXES Ot E04.1 NONTOXIC SINGLE THYROID NODULE 12/14/2015 BRENDAN SPENCER ESTIMATOR PAPERBOARD BOXES Ot E04.1 NONTOXIC SINGLE THYROID NODULE 12/23/2015 BRENDAN SPENCER ESTIMATOR PAPERBOARD BOXES Ot E11.9 TYPE 2 DIABETES MELLITUS WITHOUT COMPLIC 12/23/2015 BRENDAN SPENCER ESTIMATOR PAPERBOARD BOXES Ot I10 ESSENTIAL (PRIMARY) HYPERTENSION 12/23/2015 BRENDAN SPENCER ESTIMATOR PAPERBOARD BOXES Ot Z01.812 ENCOUNTER FOR PREPROCEDURAL LABORATORY E 12/23/2015 BRENDAN SPENCER ESTIMATOR PAPERBOARD BOXES Ot Z45.2 ENCOUNTER FOR ADJUSTMENT AND MANAGEMENT 12/23/2015 BRENDAN SPENCER ESTIMATOR PAPERBOARD BOXES Ot Z79.899 OTHER HALF-WAY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 THERAPY 12/26/2015 BRENDAN SPENCER ESTIMATOR PAPERBOARD BOXES Ot E04.1 NONTOXIC SINGLE THYROID NODULE 12/27/2015 DUKE GENAO MDAAKI Ot R13.10 DYSPHAGIA, UNSPECIFIED 12/27/2015 DUKE GENAO MDAAKI Ot Z01.818 ENCOUNTER FOR OTHER PREPROCEDURAL EXAMIN 12/27/2015 LISSA GENAO MD Ot R13.10 DYSPHAGIA, UNSPECIFIED 12/27/2015 DUKE GENAO MDAAKI Ot Z01.818 ENCOUNTER FOR OTHER PREPROCEDURAL EXAMIN 12/28/2015 CHADWICK MCKNIGHT TAKAAKI Ot K21.0 GASTRO-ESOPHAGEAL REFLUX DISEASE WITH ES 12/28/2015 CHADWICK MCKNIGHT TAKAAKI Ot K22.2 ESOPHAGEAL OBSTRUCTION 12/28/2015 CHADWICK MCKNIGHT TAKAAKI Ot K29.70 GASTRITIS, UNSPECIFIED, WITHOUT BLEEDING 12/28/2015 CHADWICK MCKNIGHT TAKAAKI Ot K44.9 DIAPHRAGMATIC HERNIA WITHOUT OBSTRUCTION 12/31/2015 CHADWICK MCKNIGHT TAKAAKI Ot K21.0 GASTRO-ESOPHAGEAL REFLUX DISEASE WITH ES 12/31/2015 CHADWICK MCKNIGHT TAKAAKI Ot K22.2 ESOPHAGEAL OBSTRUCTION 12/31/2015 CHADWICK MCKNIGHT TAKAAKI Ot K29.70 GASTRITIS, UNSPECIFIED, WITHOUT BLEEDING 12/31/2015 CHADWICK MCKNIGHT TAKAAKI Ot K44.9 DIAPHRAGMATIC HERNIA WITHOUT OBSTRUCTION 12/31/2015 CHADWICK MCKNIGHT TAKAAKI Ot K21.0 GASTRO-ESOPHAGEAL REFLUX DISEASE WITH ES 12/31/2015 CHADWICK MCKNIGHT TAKAAKI Ot K22.2 ESOPHAGEAL OBSTRUCTION 12/31/2015 DUKE GENAO MDAAKI Ot K29.70 GASTRITIS, UNSPECIFIED, WITHOUT BLEEDING 12/31/2015 CHADWICK MCKNIGHT TAKAAKI Ot K44.9 DIAPHRAGMATIC HERNIA WITHOUT OBSTRUCTION 02/07/2016 BRENDAN SPENCER M ESTIMATOR PAPERBOARD BOXES Ot E11.9 TYPE 2 DIABETES MELLITUS WITHOUT COMPLIC 02/07/2016 BRENDAN SPENCER ESTIMATOR PAPERBOARD BOXES Ot I10 ESSENTIAL (PRIMARY) HYPERTENSION 02/07/2016 BRENDAN SPENCER ESTIMATOR PAPERBOARD BOXES Ot Z01.812 ENCOUNTER FOR PREPROCEDURAL LABORATORY E 02/07/2016 BRENDAN SPENCER ESTIMATOR PAPERBOARD BOXES Ot Z45.2 ENCOUNTER FOR ADJUSTMENT AND MANAGEMENT 02/07/2016 BRENDAN SPENCER ESTIMATOR PAPERBOARD BOXES Ot 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 02/07/2016 BRENDAN SPENCER ESTIMATOR PAPERBOARD BOXES Ot E11.9 TYPE 2 DIABETES MELLITUS WITHOUT COMPLIC 02/07/2016 BRENDAN SPENCER ESTIMATOR PAPERBOARD BOXES Ot I10 ESSENTIAL (PRIMARY) HYPERTENSION 02/07/2016 BRENDAN SPENCER ESTIMATOR PAPERBOARD BOXES Ot Z01.812 ENCOUNTER FOR PREPROCEDURAL LABORATORY E 02/07/2016 BRENDAN SPENCER ESTIMATOR PAPERBOARD BOXES Ot Z45.2 ENCOUNTER FOR ADJUSTMENT AND MANAGEMENT 02/07/2016 BRENDAN SPENCER ESTIMATOR PAPERBOARD BOXES Ot 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 03/18/2016 BRENDAN SPENCER ESTIMATOR PAPERBOARD BOXES Ot E11.9 TYPE 2 DIABETES MELLITUS WITHOUT COMPLIC 03/18/2016 BRENDAN SPENCER ESTIMATOR PAPERBOARD BOXES Ot I10 ESSENTIAL (PRIMARY) HYPERTENSION 03/18/2016 BRENDAN SPENCER ESTIMATOR PAPERBOARD BOXES Ot Z01.812 ENCOUNTER FOR PREPROCEDURAL LABORATORY E 03/18/2016 BRENDAN SPENCER ESTIMATOR PAPERBOARD BOXES Ot Z45.2 ENCOUNTER FOR ADJUSTMENT AND MANAGEMENT 03/18/2016 BRENDAN SPENCER ESTIMATOR PAPERBOARD BOXES Ot 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 03/27/2016 BRENDAN SPENCER ESTIMATOR PAPERBOARD BOXES Ot E11.9 TYPE 2 DIABETES MELLITUS WITHOUT COMPLIC 03/27/2016 BRENDAN SPENCER ESTIMATOR PAPERBOARD BOXES Ot I10 ESSENTIAL (PRIMARY) HYPERTENSION 03/27/2016 BRENDAN SPENCER ESTIMATOR PAPERBOARD BOXES Ot Z45.2 ENCOUNTER FOR ADJUSTMENT AND MANAGEMENT 03/27/2016 BRENDAN SPENCER ESTIMATOR PAPERBOARD BOXES Ot 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 04/17/2016 BRENDAN SPENCER ESTIMATOR PAPERBOARD BOXES Ot E11.9 TYPE 2 DIABETES MELLITUS WITHOUT COMPLIC 04/17/2016 BRENDAN SPENCER ESTIMATOR PAPERBOARD BOXES Ot I10 ESSENTIAL (PRIMARY) HYPERTENSION 04/17/2016 BRENDAN SPENCER ESTIMATOR PAPERBOARD BOXES Ot Z45.2 ENCOUNTER FOR ADJUSTMENT AND MANAGEMENT 04/17/2016 BRENDAN SPENCER ESTIMATOR PAPERBOARD BOXES Ot 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 05/02/2016 CRISTIAN MCKNIGHT, DEANGELO Krishnamurthy Ot 250.02 DIAB JENI WO COMPL, TYPE II OR UNSPEC TY 05/07/2016 BRENDAN PSENCER ESTIMATOR PAPERBOARD BOXES Ot E11.9 TYPE 2 DIABETES MELLITUS WITHOUT COMPLIC 05/07/2016 BRENDAN SPENCER ESTIMATOR PAPERBOARD BOXES Ot I10 ESSENTIAL (PRIMARY) HYPERTENSION 05/07/2016 BRENDAN SPENCER ESTIMATOR PAPERBOARD BOXES Ot Z45.2 ENCOUNTER FOR ADJUSTMENT AND MANAGEMENT 05/07/2016 BRENDAN SPENCER ESTIMATOR PAPERBOARD BOXES Ot 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 05/08/2016 BRENDAN SPENCER ESTIMATOR PAPERBOARD BOXES Ot E11.9 TYPE 2 DIABETES MELLITUS WITHOUT COMPLIC 05/08/2016 BRENDAN SPENCER ESTIMATOR PAPERBOARD BOXES Ot I10 ESSENTIAL (PRIMARY) HYPERTENSION 05/08/2016 BRENDAN SPENCER ESTIMATOR PAPERBOARD BOXES Ot Z45.2 ENCOUNTER FOR ADJUSTMENT AND MANAGEMENT 05/08/2016 BRENDAN SPENCER ESTIMATOR PAPERBOARD BOXES Ot 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 06/09/2016 BRENDAN SPENCERP Ot E11.9 TYPE 2 DIABETES MELLITUS WITHOUT COMPLIC 06/09/2016 BRENDAN SPENCER ESTIMATOR PAPERBOARD BOXES Ot I10 ESSENTIAL (PRIMARY) HYPERTENSION 06/09/2016 BRENDAN SPENCER ESTIMATOR PAPERBOARD BOXES Ot Z45.2 ENCOUNTER FOR ADJUSTMENT AND MANAGEMENT 06/09/2016 BRENDAN SPENCER ESTIMATOR PAPERBOARD BOXES Ot 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 07/14/2016 BRENDAN SPENCER ESTIMATOR PAPERBOARD BOXES Ot E11.9 TYPE 2 DIABETES MELLITUS WITHOUT COMPLIC 07/14/2016 BRENDAN SPENCER ESTIMATOR PAPERBOARD BOXES Ot I10 ESSENTIAL (PRIMARY) HYPERTENSION 07/14/2016 BRENDAN SPENCER ESTIMATOR PAPERBOARD BOXES Ot Z45.2 ENCOUNTER FOR ADJUSTMENT AND MANAGEMENT 07/14/2016 BRENDAN SPENCER ESTIMATOR PAPERBOARD BOXES Ot 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 07/24/2016 BRENDAN SPENCER ESTIMATOR PAPERBOARD BOXES Ot E11.9 TYPE 2 DIABETES MELLITUS WITHOUT COMPLIC 07/24/2016 BRENDAN SPENCER ESTIMATOR PAPERBOARD BOXES Ot I10 ESSENTIAL (PRIMARY) HYPERTENSION 07/24/2016 TJ BRENDAN M ESTIMATOR PAPERBOARD BOXES Ot Z45.2 ENCOUNTER FOR ADJUSTMENT AND MANAGEMENT 07/24/2016 BRENDAN SPENCER ESTIMATOR PAPERBOARD BOXES Ot 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 07/25/2016 TJMIKECHELSEA Berrios ESTIMATOR PAPERBOARD BOXES Ot E11.9 TYPE 2 DIABETES MELLITUS WITHOUT COMPLIC 07/25/2016 BRENDAN SPENCER ESTIMATOR PAPERBOARD BOXES Ot I10 ESSENTIAL (PRIMARY) HYPERTENSION 07/25/2016 BRENDAN SPENCER ESTIMATOR PAPERBOARD BOXES Ot Z45.2 ENCOUNTER FOR ADJUSTMENT AND MANAGEMENT 07/25/2016 BRENDAN SPENCER ESTIMATOR PAPERBOARD BOXES Ot Z79.899 OTHER HALF-WAY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 THERAPY 08/20/2016 BRENDAN SPENCER ESTIMATOR PAPERBOARD BOXES Ot E11.9 TYPE 2 DIABETES MELLITUS WITHOUT COMPLIC 08/20/2016 BRENDAN SPENCER ESTIMATOR PAPERBOARD BOXES Ot I10 ESSENTIAL (PRIMARY) HYPERTENSION 08/20/2016 BRENDAN SPENCER ESTIMATOR PAPERBOARD BOXES Ot Z45.2 ENCOUNTER FOR ADJUSTMENT AND MANAGEMENT 08/20/2016 BRENDAN SPENCER ESTIMATOR PAPERBOARD BOXES Ot Z79.899 OTHER HALF-WAY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 THERAPY 09/02/2016 BRENDAN SPENCER ESTIMATOR PAPERBOARD BOXES Ot E11.9 TYPE 2 DIABETES MELLITUS WITHOUT COMPLIC 09/02/2016 BRENDAN SPENCER ESTIMATOR PAPERBOARD BOXES Ot I10 ESSENTIAL (PRIMARY) HYPERTENSION 09/02/2016 BRENDAN SPENCER ESTIMATOR PAPERBOARD BOXES Ot Z45.2 ENCOUNTER FOR ADJUSTMENT AND MANAGEMENT 09/02/2016 BRENDAN SPENCER ESTIMATOR PAPERBOARD BOXES Ot Z79.899 OTHER HALF-WAY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 THERAPY 09/02/2016 BRENDAN SPENCER ESTIMATOR PAPERBOARD BOXES Ot E11.9 TYPE 2 DIABETES MELLITUS WITHOUT COMPLIC 09/02/2016 BRENDAN SPENCER ESTIMATOR PAPERBOARD BOXES Ot I10 ESSENTIAL (PRIMARY) HYPERTENSION 09/02/2016 BRENDAN SPENCER ESTIMATOR PAPERBOARD BOXES Ot Z45.2 ENCOUNTER FOR ADJUSTMENT AND MANAGEMENT 09/02/2016 BRENDAN SPENCER ESTIMATOR PAPERBOARD BOXES Ot Z79.899 OTHER HALF-WAY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 THERAPY 09/07/2016 BRENDAN SPENCER ESTIMATOR PAPERBOARD BOXES Ot E11.9 TYPE 2 DIABETES MELLITUS WITHOUT COMPLIC 09/07/2016 BRENDAN SPENCER ESTIMATOR PAPERBOARD BOXES Ot I10 ESSENTIAL (PRIMARY) HYPERTENSION 09/07/2016 BRENDAN SPENCER ESTIMATOR PAPERBOARD BOXES Ot Z45.2 ENCOUNTER FOR ADJUSTMENT AND MANAGEMENT 09/07/2016 BRENDAN SPENCER Ot 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 09/11/2016 JEFFREY VELASQUEZ MD Ot E11.9 TYPE 2 DIABETES MELLITUS WITHOUT COMPLIC 09/11/2016 JEFFREY VELASQUEZ MD Ot F32.9 MAJOR DEPRESSIVE DISORDER, SINGLE EPISOD 09/11/2016 JEFFREY VELASQUEZ MD Ot I10 ESSENTIAL (PRIMARY) HYPERTENSION 09/11/2016 JEFFREY VELASQUEZ MD Ot M19.90 UNSPECIFIED OSTEOARTHRITIS, UNSPECIFIED 09/11/2016 JEFFREY VELASQUEZ MD Ot N39.0 URINARY TRACT INFECTION, SITE NOT SPECIF 09/11/2016 JEFFREY VELASQUEZ MD Ot R07.81 PLEURODYNIA 09/11/2016 JEFFREY VELASQUEZ MD Ot R60.9 EDEMA, UNSPECIFIED 09/11/2016 JEFFREY VELASQUEZ MD Ot W01.0XXA FALL SAME LEV FROM SLIP/TRIP W/O STRIKE 09/11/2016 JEFFREY VELASQUEZ MD Ot Z86.79 PERSONAL HISTORY OF OTHER DISEASES OF TH 09/11/2016 JEFFREY VELASQUEZ MD Ot Z87.81 PERSONAL HISTORY OF (HEALED) TRAUMATIC F 09/11/2016 JEFFREY VELASQUEZ MD Ot Z87.891 PERSONAL HISTORY OF NICOTINE DEPENDENCE 09/11/2016 JEFFREY VELASQUEZ MD Ot 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 JOINT, BILATE 09/13/2016 BRENDAN SPENCER Ot E11.9 TYPE 2 DIABETES MELLITUS WITHOUT COMPLIC 09/13/2016 BRENDAN SPENCER Ot I10 ESSENTIAL (PRIMARY) HYPERTENSION 09/13/2016 BRENDAN SPENCER Ot Z45.2 ENCOUNTER FOR ADJUSTMENT AND MANAGEMENT 09/13/2016 BRENDAN SPENCER Ot Z79.899 OTHER HALF-WAY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 THERAPY 10/06/2016 Ot 285.9 ANEMIA NOS 10/06/2016 Ot 586 RENAL FAILURE NOS 10/06/2016 Ot 585.9 CHRONIC KIDNEY DISEASE, UNSPECIFIED 10/06/2016 Ot 586 RENAL FAILURE NOS 10/06/2016 Ot 555.9 REGIONAL ENTERITIS NOS 10/06/2016 Ot V72.84 EXAM PRE- OPERATIVE NOS 10/06/2016 Ot 285.9 ANEMIA NOS 10/06/2016 Ot 401.9 HYPERTENSION NOS 10/06/2016 Ot 586 RENAL FAILURE NOS 10/06/2016 Ot 599.0 URIN TRACT INFECTION NOS 10/06/2016 Ot 780.79 OTH MALAISE FATIGUE 10/06/2016 Ot 285.9 ANEMIA NOS 10/06/2016 Ot 586 RENAL FAILURE NOS 10/06/2016 Ot 250.00 DIAB JENI WO COMPL, TYPE II OR UNSPEC TY 10/06/2016 Ot 401.9 HYPERTENSION NOS 10/06/2016 Ot V58.81 FIT/ADJ VASCULAR CATHETER 10/06/2016 Ot 250.00 DIAB JENI WO COMPL, TYPE II OR UNSPEC TY 10/06/2016 Ot 403.90 HYPTNSV CHR KID DIS, UNSPEC, W CHR KD ST 10/06/2016 Ot 585.9 CHRONIC KIDNEY DISEASE, UNSPECIFIED 10/06/2016 Ot 250.00 DIAB JENI WO COMPL, TYPE II OR UNSPEC TY 10/06/2016 Ot 403.90 HYPTNSV CHR KID DIS, UNSPEC, W CHR KD ST 10/06/2016 Ot 585.3 CHRONIC KIDNEY DISEASE, STAGE III (MODER 10/06/2016 Ot 250.00 DIAB JENI WO COMPL, TYPE II OR UNSPEC TY 10/06/2016 Ot 401.9 HYPERTENSION NOS 10/06/2016 BRENDAN SPENCER ESTIMATOR PAPERBOARD BOXES Ot 250.00 DIAB JENI WO COMPL, TYPE II OR UNSPEC TY 10/06/2016 BRENDAN SPENCER ESTIMATOR PAPERBOARD BOXES Ot 311 DEPRESSIVE DISORDER NEC 10/06/2016 BRENDAN SPENCER ESTIMATOR PAPERBOARD BOXES Ot 401.9 HYPERTENSION NOS 10/06/2016 BRENDAN SPENCER ESTIMATOR PAPERBOARD BOXES Ot 586 RENAL FAILURE NOS 10/06/2016 BRENDAN SPENCER ESTIMATOR PAPERBOARD BOXES Ot V58.69 OTH MED,LT,CURRENT USE 10/06/2016 DEANGELO FOSTER MD Ot 250.00 DIAB JENI WO COMPL, TYPE II OR UNSPEC TY 10/06/2016 DEANGELO FOSTER MD Ot 272.4 HYPERLIPIDEMIA NEC/NOS 10/06/2016 DEANGELO FOSTER MD Ot 401.9 HYPERTENSION NOS 10/06/2016 DEANGELO FOSTER MD Ot V58.69 OTH MED,LT,CURRENT USE 10/06/2016 Ot V58.81 FIT/ADJ VASCULAR CATHETER 10/06/2016 DEANGELO FOSTER MD Ot 250.00 DIAB JENI WO COMPL, TYPE II OR UNSPEC TY 10/06/2016 DEANGELO FOSTER MD Ot 298.9 PSYCHOSIS NOS 10/06/2016 DEANGELO FOSTER MD Ot 401.9 HYPERTENSION NOS 10/06/2016 DEANGELO FOSTER MD Ot 780.79 OTH MALAISE FATIGUE 10/06/2016 BRENDAN SPENCER ESTIMATOR PAPERBOARD BOXES Ot 250.00 DIAB JENI WO COMPL, TYPE II OR UNSPEC TY 10/06/2016 BRENDAN SPENCERP Ot 272.4 HYPERLIPIDEMIA NEC/NOS 10/06/2016 BRENDAN SPENCER ESTIMATOR PAPERBOARD BOXES Ot 401.9 HYPERTENSION NOS 10/06/2016 BRENDAN SPENCER ESTIMATOR PAPERBOARD BOXES Ot V58.69 OTH MED,LT,CURRENT USE 10/06/2016 CRISTIAN MCKNIGHT, DEANGELO Krishnamurthy Ot 250.02 DIAB JENI WO COMPL, TYPE II OR UNSPEC TY 10/06/2016 CHADWIKC MCKNIGHT, TAKAAKI Ot V72.84 EXAM PRE-OPERATIVE NOS 10/06/2016 VERONICA COFFMAN REVENUE DIRECTOR Ot E11.9 TYPE 2 DIABETES MELLITUS WITHOUT COMPLIC 10/06/2016 VERONICA COFFMAN REVENUE DIRECTOR Ot Z00.00 ENCNTR FOR GENERAL ADULT MEDICAL EXAM W/ 10/06/2016 BRENDAN SPENCER ESTIMATOR PAPERBOARD BOXES Ot E11.65 TYPE 2 DIABETES MELLITUS WITH HYPERGLYCE 10/06/2016 BRENDAN SPENCER ESTIMATOR PAPERBOARD BOXES Ot I12.9 HYPERTENSIVE CHRONIC KIDNEY DISEASE W ST 10/06/2016 BRENDAN SPENCER ESTIMATOR PAPERBOARD BOXES Ot N18.3 CHRONIC KIDNEY DISEASE, STAGE 3 (MODERAT 10/06/2016 BRENDAN SPENCER ESTIMATOR PAPERBOARD BOXES Ot E04.1 NONTOXIC SINGLE THYROID NODULE 10/06/2016 BRENDAN SPENCER ESTIMATOR PAPERBOARD BOXES Ot E11.9 TYPE 2 DIABETES MELLITUS WITHOUT COMPLIC 10/06/2016 BRENDAN SPENCER ESTIMATOR PAPERBOARD BOXES Ot I10 ESSENTIAL (PRIMARY) HYPERTENSION 10/06/2016 BRENDAN SPENCER ESTIMATOR PAPERBOARD BOXES Ot Z45.2 ENCOUNTER FOR ADJUSTMENT AND MANAGEMENT 10/06/2016 BRENDAN SPENCERP Ot 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 10/14/2016 BRENDAN SPENCER ESTIMATOR PAPERBOARD BOXES Ot E11.9 TYPE 2 DIABETES MELLITUS WITHOUT COMPLIC 10/14/2016 BRENDAN SPENCER ESTIMATOR PAPERBOARD BOXES Ot I10 ESSENTIAL (PRIMARY) HYPERTENSION 10/14/2016 BRENDAN SPENCER ESTIMATOR PAPERBOARD BOXES Ot Z45.2 ENCOUNTER FOR ADJUSTMENT AND MANAGEMENT 10/14/2016 BRENDAN SPENCER ESTIMATOR PAPERBOARD BOXES Ot 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 10/14/2016 BRENDAN SPENCER ESTIMATOR PAPERBOARD BOXES Ot E11.9 TYPE 2 DIABETES MELLITUS WITHOUT COMPLIC 10/14/2016 BRENDAN SPENCER ESTIMATOR PAPERBOARD BOXES Ot I10 ESSENTIAL (PRIMARY) HYPERTENSION 10/14/2016 BRENDAN SPENCER ESTIMATOR PAPERBOARD BOXES Ot Z45.2 ENCOUNTER FOR ADJUSTMENT AND MANAGEMENT 10/14/2016 BRENDAN SPENCER ESTIMATOR PAPERBOARD BOXES Ot 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 10/14/2016 BRENDAN SPENCER ESTIMATOR PAPERBOARD BOXES Ot E11.9 TYPE 2 DIABETES MELLITUS WITHOUT COMPLIC 10/14/2016 BRENDAN SPENCER ESTIMATOR PAPERBOARD BOXES Ot I10 ESSENTIAL (PRIMARY) HYPERTENSION 10/14/2016 BRENDAN SPENCER ESTIMATOR PAPERBOARD BOXES Ot Z45.2 ENCOUNTER FOR ADJUSTMENT AND MANAGEMENT 10/14/2016 BRENDAN SPENCER ESTIMATOR PAPERBOARD BOXES Ot Z79.899 OTHER HALF-WAY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 THERAPY 10/17/2016 VERONICA COFFMAN REVENUE DIRECTOR Ot M79.604 PAIN IN RIGHT LEG 10/17/2016 VERONICA COFFMAN REVENUE DIRECTOR Ot R22.41 LOCALIZED SWELLING, MASS AND LUMP, RIGHT 11/12/2016 BRENDAN SPENCER ESTIMATOR PAPERBOARD BOXES Ot E11.9 TYPE 2 DIABETES MELLITUS WITHOUT COMPLIC 11/12/2016 BRENDAN SPENCRE ESTIMATOR PAPERBOARD BOXES Ot I10 ESSENTIAL (PRIMARY) HYPERTENSION 11/12/2016 BRENDAN SPENCER ESTIMATOR PAPERBOARD BOXES Ot Z45.2 ENCOUNTER FOR ADJUSTMENT AND MANAGEMENT 11/12/2016 BRENDAN SPENCER ESTIMATOR PAPERBOARD BOXES Ot 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 11/21/2016 BRENDAN SPENCER ESTIMATOR PAPERBOARD BOXES Ot E11.9 TYPE 2 DIABETES MELLITUS WITHOUT COMPLIC 11/21/2016 BRENDAN SPENCER ESTIMATOR PAPERBOARD BOXES Ot I10 ESSENTIAL (PRIMARY) HYPERTENSION 11/21/2016 BRENDAN SPENCER ESTIMATOR PAPERBOARD BOXES Ot Z45.2 ENCOUNTER FOR ADJUSTMENT AND MANAGEMENT 11/21/2016 BRENDAN SPENCER ESTIMATOR PAPERBOARD BOXES Ot 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 11/25/2016 BRENDAN SPENCER ESTIMATOR PAPERBOARD BOXES Ot E11.9 TYPE 2 DIABETES MELLITUS WITHOUT COMPLIC 11/25/2016 BRENDAN SPENCER ESTIMATOR PAPERBOARD BOXES Ot I10 ESSENTIAL (PRIMARY) HYPERTENSION 11/25/2016 BRENDAN SPENCER ESTIMATOR PAPERBOARD BOXES Ot Z45.2 ENCOUNTER FOR ADJUSTMENT AND MANAGEMENT 11/25/2016 BRENDAN SPENCER ESTIMATOR PAPERBOARD BOXES Ot Z79.899 OTHER HALF-WAY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 THERAPY 12/05/2016 BRENDAN SPENCER ESTIMATOR PAPERBOARD BOXES Ot E11.9 TYPE 2 DIABETES MELLITUS WITHOUT COMPLIC 12/05/2016 BRENDAN SPENCER ESTIMATOR PAPERBOARD BOXES Ot I10 ESSENTIAL (PRIMARY) HYPERTENSION 12/05/2016 BRENDAN SPENCER ESTIMATOR PAPERBOARD BOXES Ot Z45.2 ENCOUNTER FOR ADJUSTMENT AND MANAGEMENT 12/05/2016 BRENDAN SPENCER ESTIMATOR PAPERBOARD BOXES Ot 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 12/06/2016 BRENDAN SPENCER ESTIMATOR PAPERBOARD BOXES Ot E11.9 TYPE 2 DIABETES MELLITUS WITHOUT COMPLIC 12/06/2016 BRENDAN SPENCER ESTIMATOR PAPERBOARD BOXES Ot I10 ESSENTIAL (PRIMARY) HYPERTENSION 12/06/2016 BRENDAN SPENCER ESTIMATOR PAPERBOARD BOXES Ot Z45.2 ENCOUNTER FOR ADJUSTMENT AND MANAGEMENT 12/06/2016 BRENDAN SPENCER ESTIMATOR PAPERBOARD BOXES Ot 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 12/15/2016 BRENDAN SPENCER ESTIMATOR PAPERBOARD BOXES Ot E11.9 TYPE 2 DIABETES MELLITUS WITHOUT COMPLIC 12/15/2016 BRENDAN SPENCER ESTIMATOR PAPERBOARD BOXES Ot I10 ESSENTIAL (PRIMARY) HYPERTENSION 12/15/2016 BRENDAN SPENCER ESTIMATOR PAPERBOARD BOXES Ot Z45.2 ENCOUNTER FOR ADJUSTMENT AND MANAGEMENT 12/15/2016 BRENDAN SPENCER ESTIMATOR PAPERBOARD BOXES Ot 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 06/02/2017 NAVID RAND MD Ot T82.514A BREAKDOWN (MECHANICAL) OF INFUSION ANANYA 06/02/2017 NAVID RAND MD Ot Z01.818 ENCOUNTER FOR OTHER PREPROCEDURAL EXAMIN 06/02/2017 NAVID RAND MD Ot E11.9 TYPE 2 DIABETES MELLITUS WITHOUT COMPLIC 06/02/2017 NAVID RAND MD, Ot F32.9 MAJOR DEPRESSIVE DISORDER, SINGLE EPISOD 06/02/2017 NAVID RAND MD Ot I10 ESSENTIAL (PRIMARY) HYPERTENSION 06/02/2017 NAVID RAND MD Ot T82.514A BREAKDOWN (MECHANICAL) OF INFUSION ANANYA 06/02/2017 RAND MD, NAVID M Ot Z79.4 HALF-WAY (CURRENT) USE OF INSULIN 06/02/2017 NAVID RAND MD Ot 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 06/02/2017 NAVID RAND MD Ot Z87.891 PERSONAL HISTORY OF NICOTINE DEPENDENCE 06/02/2017 NAVID RAND MD Ot 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 JOINT, BILATE 06/03/2017 NAVID RAND MD Ot E11.9 TYPE 2 DIABETES MELLITUS WITHOUT COMPLIC 06/03/2017 NAVID RAND MD Ot F32.9 MAJOR DEPRESSIVE DISORDER, SINGLE EPISOD 06/03/2017 NAVID RAND MD M Ot I10 ESSENTIAL (PRIMARY) HYPERTENSION 06/03/2017 NAVID RAND MD Ot T82.514A BREAKDOWN (MECHANICAL) OF INFUSION ANANYA 06/03/2017 NAVID RAND MD Ot Z79.4 HALF-WAY (CURRENT) USE OF INSULIN 06/03/2017 NAVID RAND MD Ot Z79.899 OTHER HALF-WAY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 THERAPY 06/03/2017 NAVID RAND MD Ot Z87.891 PERSONAL HISTORY OF NICOTINE DEPENDENCE 06/03/2017 NAVID RAND MD Ot 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 JOINT, BILATE 06/04/2017 NAVID RAND MD Ot E11.9 TYPE 2 DIABETES MELLITUS WITHOUT COMPLIC 06/04/2017 NAVID RAND MD Ot F32.9 MAJOR DEPRESSIVE DISORDER, SINGLE EPISOD 06/04/2017 NAVID RAND MD Ot I10 ESSENTIAL (PRIMARY) HYPERTENSION 06/04/2017 NAVID RAND MD Ot T82.514A BREAKDOWN (MECHANICAL) OF INFUSION ANANYA 06/04/2017 NAVID RAND MD Ot Z79.4 HALF-WAY (CURRENT) USE OF INSULIN 06/04/2017 NAVID RAND MD M Ot 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 06/04/2017 NAVID RAND MD Ot Z87.891 PERSONAL HISTORY OF NICOTINE DEPENDENCE 06/04/2017 NAVID RAND MD Ot 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 JOINT, BILATE 06/04/2017 NAVID RAND MD M Ot E11.9 TYPE 2 DIABETES MELLITUS WITHOUT COMPLIC 06/04/2017 NAVID RAND MD, Ot F32.9 MAJOR DEPRESSIVE DISORDER, SINGLE EPISOD 06/04/2017 NAVID RAND MD, Ot I10 ESSENTIAL (PRIMARY) HYPERTENSION 06/04/2017 NAVID RAND MD, Ot T82.514A BREAKDOWN (MECHANICAL) OF INFUSION ANANYA 06/04/2017 NAVID RAND MD, Ot 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.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 06/04/2017 NAVID RAND MD, Ot 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 06/04/2017 NAVID RAND MD, Ot Z87.891 PERSONAL HISTORY OF NICOTINE DEPENDENCE 06/04/2017 NAVID RAND MD, Ot 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 JOINT, BILATE Procedures Code Description Performed By Performed On 00.74 09/23/2010 81.51 09/23/2010 99.04 09/24/2010 38.93 VENOUS CATHETERIZATION NEC 07/04/2011 86.07 INSERTION OF TOTALLY IMPLANTABLE VASC AC 07/07/2011 03.31 SPINAL TAP 08/26/2011 45.16 ESOPHAGOGASTRODUODENOSCOPY [ EGD] W/CLOSE 09/01/2011 45.25 CLOSED ENDOSCOPIC BIOPSY OF LARGE INTEST 09/01/2011 Results Test Result Range Complete blood count (CBC) with automated white blood cell (WBC) differential - 06/09/16 11:05 Blood leukocytes automated count (number/volume) 8.8 10*3/uL 4.3-11.0 Blood erythrocytes automated count (number/volume) 4.64 10*6/uL 4.35-5.85 Venous blood hemoglobin measurement (mass/volume) 13.7 g/dL 11.5-16.0 Blood hematocrit (volume fraction) 41 % 35-52 Automated erythrocyte mean corpuscular volume 89 [foz_us] 80-99 Automated erythrocyte mean corpuscular hemoglobin (mass per erythrocyte) 30 pg 25-34 Automated erythrocyte mean corpuscular hemoglobin concentration measurement ( mass/volume) 33 g/dL 32-36 Automated erythrocyte distribution width ratio 14.2 % 10.0-14.5 Automated blood platelet count (count/volume) 201 10*3/uL 130-400 Automated blood platelet mean volume measurement 11.2 [foz_us] 7.4-10.4 Automated blood neutrophils/100 leukocytes 65 % 42-75 Automated blood lymphocytes/100 leukocytes 23 % 12-44 Blood monocytes/100 leukocytes 10 % 0-12 Automated blood eosinophils/100 leukocytes 2 % 0-10 Automated blood basophils/100 leukocytes 0 % 0-10 Blood neutrophils automated count (number/volume) 5.7 10*3 1.8-7.8 Blood lymphocytes automated count (number/volume) 2.0 10*3 1.0-4.0 Blood monocytes automated count (number/volume) 0.9 10*3 0.0-1.0 Automated eosinophil count 0.2 10*3/uL 0.0-0.3 Automated blood basophil count (count/volume) 0.0 10*3/uL 0.0-0.1 Comprehensive metabolic panel - 06/09/16 11:05 Serum or plasma sodium measurement (moles/volume) 139 mmol/L 135-145 Serum or plasma potassium measurement (moles/volume) 4.1 mmol/L 3.6-5.0 Serum or plasma chloride measurement (moles/volume) 105 mmol/L 98-107 Carbon dioxide 26 mmol/L 21-32 Serum or plasma anion gap determination (moles/volume) 8 mmol/L 5-14 Serum or plasma urea nitrogen measurement (mass/volume) 18 mg/dL 7-18 Serum or plasma creatinine measurement (mass/volume) 0.98 mg/dL 0.60-1.30 Serum or plasma urea nitrogen/creatinine mass ratio 18 NRG Serum or plasma creatinine measurement with calculation of estimated glomerular filtration rate 55 NRG Serum or plasma glucose measurement (mass/volume) 262 mg/dL 70-105 Serum or plasma calcium measurement (mass/volume) 9.4 mg/dL 8.5-10.1 Serum or plasma total bilirubin measurement (mass/volume) 0.4 mg/dL 0.1-1.0 Serum or plasma alkaline phosphatase measurement (enzymatic activity/volume) 124 U/L 40-136 Serum or plasma aspartate aminotransferase measurement (enzymatic activity/ volume) 15 U/L 5-34 Serum or plasma alanine aminotransferase measurement (enzymatic activity/volume ) 17 U/L 0-55 Serum or plasma protein measurement (mass/volume) 7.5 g/dL 6.4-8.2 Serum or plasma albumin measurement (mass/volume) 4.1 g/dL 3.2-4.5 Lipid 1996 panel - 06/09/16 11:05 Serum or plasma triglyceride measurement (mass/volume) 101 mg/dL <150 Serum or plasma cholesterol measurement (mass/volume) 150 mg/dL < 200 Serum or plasma cholesterol in HDL measurement (mass/volume) 50 mg/ dL 40-60 Cholesterol in LDL [mass/volume] in serum or plasma by direct assay 81 mg/dL 1-129 Serum or plasma cholesterol in VLDL measurement (mass/volume) 20 mg/ dL 5-40 Hemoglobin A1c - 06/09/16 11:05 Hemoglobin A1c 7.8 % 4.5-6.2 THYROID STIMULATING HORMONE - 06/09/16 11:05 THYROID STIMULATING HORMONE 2.39 u[iU]/mL 0.35-4.94 Complete urinalysis with reflex to culture - 09/11/16 20:18 Urine color determination YELLOW NRG Urine clarity determination CLEAR NRG Urine pH measurement by test strip 6 5-9 Specific gravity of urine by test strip 1.015 1.016- 1.022 Urine protein assay by test strip, semi-quantitative 1+ NEGATIVE Urine glucose detection by automated test strip NEGATIVE NEGATIVE Erythrocytes detection in urine sediment by light microscopy NEGATIVE NEGATIVE Urine ketones detection by automated test strip NEGATIVE NEGATIVE Urine nitrite detection by test strip NEGATIVE NEGATIVE Urine total bilirubin detection by test strip NEGATIVE NEGATIVE Urine urobilinogen measurement by automated test strip (mass/volume) 1 mg/dL NORMAL Urine leukocyte esterase detection by dipstick 2+ NEGATIVE Automated urine sediment erythrocyte count by microscopy (number/high power field) NONE NRG Automated urine sediment leukocyte count by microscopy (number/high power field ) [HPF] NRG Bacteria detection in urine sediment by light microscopy FEW NRG Squamous epithelial cells detection in urine sediment by light microscopy 2-5 NRG Crystals detection in urine sediment by light microscopy NONE NRG Casts detection in urine sediment by light microscopy NONE NRG Mucus detection in urine sediment by light microscopy NEGATIVE NRG Complete urinalysis with reflex to culture YES NRG Bacterial urine culture - 09/11/16 20:18 Bacterial urine culture [id number] NRG COLONY COUNT 10,000/ML - 100,000/ML NRG FTX;REPORTABLE PLUS, NRG FREE TEXT ENTRY 2 MIXED GRAM POSITIVES <10,000/ML NRG Complete blood count (CBC) with automated white blood cell (WBC) differential - 09/11/16 21:02 Blood leukocytes automated count (number/volume) 7.9 10*3/uL 4.3-11.0 Blood erythrocytes automated count (number/volume) 4.26 10*6/uL 4.35-5.85 Venous blood hemoglobin measurement (mass/volume) 12.1 g/dL 11.5-16.0 Blood hematocrit (volume fraction) 38 % 35-52 Automated erythrocyte mean corpuscular volume 88 [foz_us] 80-99 Automated erythrocyte mean corpuscular hemoglobin (mass per erythrocyte) 28 pg 25-34 Automated erythrocyte mean corpuscular hemoglobin concentration measurement ( mass/volume) 32 g/dL 32-36 Automated erythrocyte distribution width ratio 14.3 % 10.0-14.5 Automated blood platelet count (count/volume) 209 10*3/uL 130-400 Automated blood platelet mean volume measurement 11.2 [foz_us] 7.4-10.4 Automated blood neutrophils/100 leukocytes 60 % 42-75 Automated blood lymphocytes/100 leukocytes 28 % 12-44 Blood monocytes/100 leukocytes 9 % 0-12 Automated blood eosinophils/100 leukocytes 3 % 0-10 Automated blood basophils/100 leukocytes 1 % 0-10 Blood neutrophils automated count (number/volume) 4.7 10*3 1.8-7.8 Blood lymphocytes automated count (number/volume) 2.2 10*3 1.0-4.0 Blood monocytes automated count (number/volume) 0.7 10*3 0.0-1.0 Automated eosinophil count 0.3 10*3/uL 0.0-0.3 Automated blood basophil count (count/volume) 0.0 10*3/uL 0.0-0.1 Comprehensive metabolic panel - 09/11/16 21:02 Serum or plasma sodium measurement (moles/volume) 140 mmol/L 135-145 Serum or plasma potassium measurement (moles/volume) 3.8 mmol/L 3.6-5.0 Serum or plasma chloride measurement (moles/volume) 106 mmol/L 98-107 Carbon dioxide 23 mmol/L 21-32 Serum or plasma anion gap determination (moles/volume) 11 mmol/L 5-14 Serum or plasma urea nitrogen measurement (mass/volume) 22 mg/dL 7-18 Serum or plasma creatinine measurement (mass/volume) 1.10 mg/dL 0.60-1.30 Serum or plasma urea nitrogen/creatinine mass ratio 20 NRG Serum or plasma creatinine measurement with calculation of estimated glomerular filtration rate 48 NRG Serum or plasma glucose measurement (mass/volume) 182 mg/dL 70-105 Serum or plasma calcium measurement (mass/volume) 9.6 mg/dL 8.5-10.1 Serum or plasma total bilirubin measurement (mass/volume) 0.4 mg/dL 0.1-1.0 Serum or plasma alkaline phosphatase measurement (enzymatic activity/volume) 122 U/L 40-136 Serum or plasma aspartate aminotransferase measurement (enzymatic activity/ volume) 17 U/L 5-34 Serum or plasma alanine aminotransferase measurement (enzymatic activity/volume ) 23 U/L 0-55 Serum or plasma protein measurement (mass/volume) 7.6 g/dL 6.4-8.2 Serum or plasma albumin measurement (mass/volume) 4.2 g/dL 3.2-4.5 Magnesium - 09/11/16 21:02 Magnesium 1.9 mg/dL 1.8-2.4 Capillary blood glucose measurement by glucometer (mass/volume) - 06/02/17 11: 32 Capillary blood glucose measurement by glucometer (mass/volume) 93 mg/dL 70-110 Methicillin resistant Staphylococcus aureus (MRSA) screening culture - 11:32 Methicillin resistant Staphylococcus aureus (MRSA) screening culture NEG NRG Encounters ACCT No. Visit Date/Time Discharge Status Pt. Type Provider Facility Loc./Unit Complaint [id number] 06/02/2017 11:05:00 06/02/2017 15:38:00 DIS Outpatient NAVID RAND MD [facility] NON-FUNCTIONING PORT [id number] 06/01/2017 05:36:00 06/01/2017 10:14:00 DIS Outpatient NAVID RAND MD [facility] PREOP NON-FUNCTIONING PORT [id number] 12/07/2016 02:46:00 12/07/2016 23:59:59 CLS Preadmit BRENDAN SPENCER [facility] IMPLANTED PORT, DIABETES,HYPERLIPIDEMA,HYPERTENSION [id number] 11/25/2016 11:41:00 12/06/2016 00:01:00 DIS Outpatient BRENDAN SPENCER [facility] IMPLANTED PORT, DIABETES,HYPERLIPIDEMA,HYPERTENSION [id number] 10/06/2016 17:10:00 10/06/2016 23:59:59 CLS Outpatient VERONICA COFFMAN APRN [facility] RAD RIGHT LEG PAIN/ SWELLING [id number] 09/11/2016 19:56:00 09/11/2016 22:31:00 DIS Emergency JEFFREY VELASQUEZ MD [facility] ER RT SIDED ABD PAIN [id number] 09/02/2016 11:05:00 09/07/2016 00:01:00 DIS Outpatient BRENDAN SPENCER [facility] IMPLANTED PORT, DIABETES,HYPERLIPIDEMA,HYPERTENSION [id number] 04/17/2016 12:20:00 05/07/2016 00:01:00 DIS Outpatient BRENDAN SPENCER [facility] IMPLANTED PORT, DIABETES,HYPERLIPIDEMA,HYPERTENSION [id number] 12/28/2015 10:47:00 12/28/2015 13:30:00 DIS Outpatient LISSA GENAO MD [facility] DYSPHAGIA [id number] 12/27/2015 05:58:00 12/27/2015 10:00:00 DIS Outpatient LISSA GENAO MD [facility] PREOP DYSPHAGIA [id number] 12/10/2015 12:17:00 12/23/2015 00:01:00 DIS Outpatient BRENDAN SPENCER [facility] IMPLANTED PORT, DIABETES,HYPERLIPIDEMA,HYPERTENSION [id number] 12/13/2015 12:18:00 12/13/2015 23:59:59 CLS Outpatient BRENDAN SPENCER [facility] RAD THYROID NODULE [id number] 08/13/2015 12:06:00 08/13/2015 23:59:59 CLS Outpatient BRENDAN SPENCER [facility] HYPERTENSION, DIABETES,CKD [id number] 06/21/2015 12:22:00 07/29/2015 00:01:00 DIS Outpatient BRENDAN SPENCER [facility] IMPLANTED PORT, DIABETES,HYPERLIPIDEMA,HYPERTENSION [id number] 04/30/2015 08:12:00 04/30/2015 23:59:59 CLS Outpatient VERONICA COFFMAN APRN [facility] DIABETES,ROUINE EXAM [id number] 03/07/2015 09:52:00 04/18/2015 00:01:00 DIS Outpatient BRENDAN SPENCER [facility] IMPLANTED PORT, DIABETES,HYPERLIPIDEMA,HYPERTENSION [id number] 12/05/2014 10:50:00 12/06/2014 00:01:00 DIS Outpatient BRENDAN SPENCER [facility] IMPLANTED PORT, DIABETES,HYPERLIPIDEMA,HYPERTENSION [id number] 10/17/2014 13:56:00 12/04/2014 00:01:00 DIS Outpatient BRENDAN SPENCER [facility] IMPLANTED PORT, DIABETES,HYPERLIPIDEMA,HYPERTENSION [id number] 05/16/2014 08:52:00 08/14/2014 00:01:00 DIS Outpatient BRENDAN SPENCER [facility] IMPLANTED PORT, DIABETES,HYPERLIPIDEMA,HYPERTENSION [id number] 06/16/2014 08:50:00 06/16/2014 12:15:00 DIS Outpatient LISSA GENAO MD [facility] HX POLYPS [id number] 06/15/2014 06:08:00 06/15/2014 23:59:59 CLS Outpatient LISSA GENAO MD [facility] PREOP HX POLYPS [id number] 01/10/2014 13:05:00 02/20/2014 00:01:00 DIS Outpatient BRENDAN SPENCERP [facility] IMPLANTED PORT [id number] 02/07/2014 10:30:00 02/07/2014 23:59:59 CLS Preadmit DEANGELO FOSTER MD [facility] DSMNakita DM 2 [id number] 11/08/2013 10:30:00 02/06/2014 00:01:00 DIS Outpatient DEANGELO FOSTER MD [facility] DSME DM 2 [id number] 10/11/2013 12:52:00 10/17/2013 00:01:00 DIS Outpatient DEANGELO FOSTER MD [facility] IMPLANTED PORT [id number] 09/27/2013 09:21:00 09/27/2013 23:59:59 CLS Outpatient BRENDAN SPENCER [facility] LAB HYPERLIPADEMIA [id number] 06/06/2013 19:36:00 06/06/2013 23:59:59 CLS Outpatient DEANGELO FOSTER MD [facility] LAB WEAKNESS,CONFUSION, HTN,DM [id number] 05/25/2013 11:30:00 06/05/2013 00:01:00 DIS Outpatient DEANGELO FOSTER MD [facility] IMPLANTED PORT [id number] 01/13/2013 10:40:00 01/30/2013 00:01:00 DIS Outpatient BRENDAN SPENCER [facility] PORT FLUSH [id number] 01/13/2013 10:28:00 01/13/2013 23:59:59 CLS Outpatient DEANGELO FOSTER MD [facility] LAB HTN,HYPERLIPADEMIA [id number] 01/05/2013 17:44:00 01/05/2013 23:59:59 CLS Outpatient [id number] 09/20/2012 15:05:00 10/06/2012 00:01:00 DIS Outpatient DEANGELO FOSTER MD 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 [id number] 02/15/2014 16:02:00 Document Registration [id number] 01/31/2013 00:00:00 Document Registration [id number] 04/28/2012 08:31:00 Document Registration [id number] 2012 15:43:00 Document Registration [id number] 02/07/2012 17:15:00 Document Registration [id number] 01/13/2012 11:30:00 Document Registration [id number] 12/10/2011 09:50:00 Document Registration [id number] 12/10/2011 09:25:00 Document Registration [id number] 11/13/2011 15:20:00 Document Registration [id number] 11/06/2011 18:25:00 Document Registration [id number] 10/13/2011 10:28:00 Document Registration [id number] 09/15/2011 08:38:00 Document Registration [id number] 09/15/2011 06:38:00 Document Registration [id number] 09/12/2011 13:14:00 Document Registration [id number] 09/01/2011 15:30:00 Document Registration [id number] 08/27/2011 14:21:00 Document Registration [id number] 08/12/2011 09:31:00 Document Registration [id number] 08/05/2011 09:24:00 Document Registration [id number] 07/30/2011 15:25:00 Document Registration [id number] 07/13/2011 01:30:00 Document Registration [id number] 07/04/2011 12:47:00 Document Registration [id number] 06/29/2011 15:20:00 Document Registration [id number] 02/19/2011 09:27:00 Document Registration [id number] 09/26/2010 10:20:00 Document Registration [id number] 09/23/2010 05:47:00 Document Registration [id number] 09/16/2010 10:01:00 Document Registration [id number] 08/07/2010 09:37:00 Document Registration [id number] 06/20/2010 07:49:00 Document Registration [id number] 12/05/2014 10:50:41 ACT Document Registration
[2017-12-11] MEDS ORDERED: HYDR-3820 PO (13:11)
[2017-12-11] MEDS ORDERED: FURO20TA4 PO (13:11)
[2017-12-11] MEDS ORDERED: INSU200I4 SC (13:11)
[2017-12-11] MEDS ORDERED: ESCI20TA45 PO (13:11)
[2017-12-11] MEDS ORDERED: OMEP20CA12 PO (13:11)
[2017-12-11 14:12] LABS: HEMOGLOBIN 10.4 G/DL (11.5-16.0); RED BLOOD COUNT 3.85 10^6/uL (4.35-5.85); RED CELL DISTRIBUTION WIDTH 16.9 % (10.0-14.5)
[2017-12-11] MEDS: ENOXAPARIN 40 MG/0.4 ML (LOVENOX) SYR SC SCH (14:15)
[2017-12-11] MEDS: NS IV 1000 ML 1,000 ML IV SCH (14:15)
[2017-12-11 14:29] LABS: ALANINE AMINOTRANSFERASE 9 U/L (0-55); ALBUMIN 3.7 GM/DL (3.2-4.5); ALKALINE PHOSPHATASE 81 U/L (40-136); BILIRUBIN,TOTAL 0.7 MG/DL (0.1-1.0); BUN/CREATININE RATIO 22; CALCIUM 9.2 MG/DL (8.5-10.1); CARBON DIOXIDE 19 MMOL/L (21-32); CHLORIDE 112 MMOL/L (98-107); CREATININE SERUM 0.85 MG/DL (0.60-1.30); GFR ESTIMATED > 60; GLUCOSE 102 MG/DL (70-105); SODIUM 142 MMOL/L (135-145); TOTAL PROTEIN 6.7 GM/DL (6.4-8.2)
[2017-12-11 14:54] LABS: BILIRUBIN,URINE NEGATIVE (NEGATIVE); CLARITY,URINE CLEAR; COLOR,URINE YELLOW; GLUCOSE, URINE (UA) NEGATIVE (NEGATIVE); KETONES,URINE NEGATIVE (NEGATIVE); LEUKOCYTE ESTERASE ,URINE 1+ (NEGATIVE); NITRITE,URINE NEGATIVE (NEGATIVE); PH,URINE 6 (5-9); PROTEIN,URINE 2+ (NEGATIVE); UROBILINOGEN,URINE NORMAL (NORMAL)
[2017-12-11 15:22] LABS: BACTERIA,URINE NEGATIVE /HPF; RBC,URINE RARE /HPF; WBC,URINE 0-2 /HPF
[2017-12-11] MEDS ORDERED: FLU QUADRIvalent (5+ YOA) 2018-2019 (AFLURIA) 0.5 ML IM ONE (16:00)
--- NOTE | 2017-12-11 16:01 | Diagnostic Imaging Report ---
INDICATION: Dyspnea. FINDINGS: PA and lateral views. There is cardiomegaly. There is mild prominence of pulmonary vasculature with mild interstitial infiltrates. There are small bilateral effusions. There are no consolidated infiltrates. No pneumothorax. No central lines are demonstrated. IMPRESSION: Cardiomegaly with findings consistent with mild congestive failure with small pleural effusions. Dictated by: Dictated on workstation # [id number]
[2017-12-11 16:30] VITALS: BP 126/59
[2017-12-11] MEDS: inSUlin (REGULAR) HUMAN 1 UNIT/0.01 ML (CHARGE PER UNIT) SC SCH ×2 (16:45→20:53)
[2017-12-11] MEDS: FUROSEMIDE 40 MG/4 ML INJ (LASIX) IVP SCH (16:46)
[2017-12-11] MEDS ORDERED: FUROSEMIDE 20 MG (LASIX) TAB PO SCH (17:00)
[2017-12-11 20:00] VITALS: BP 124/61
[2017-12-11] MEDS: CARVEDILOL 12.5 MG (COREG) TABLET PO SCH (20:52)
[2017-12-11] MEDS: FAMOTIDINE 20 MG (PEPCID) TABLET PO SCH (20:52)
[2017-12-11] MEDS: GABAPENTIN 100 MG (NEURONTIN) CAP PO SCH (20:52)
[2017-12-11] MEDS ORDERED: CARVEDILOL 12.5 MG (COREG) TABLET PO SCH (21:00)
[2017-12-11] MEDS ORDERED: inSUlin DETERMIR 1 UNIT/0.01 ML (LEVEMIR) CHARGE PER UNIT SQ SCH (21:00)
[2017-12-11] MEDS ORDERED: NON-FORMULARY MEDICATION 1 EA EA (Carvedilol 25 MG) PO SCH (21:00)
[2017-12-11] MEDS ORDERED: GABAPENTIN 400 MG (NEURONTIN) CAP PO SCH (21:00)
[2017-12-11] MEDS ORDERED: NON-FORMULARY MEDICATION 1 EA EA (Escitalopram Oxalate 20 MG) PO SCH (21:00)
[2017-12-12] VITALS: BP 126/58
[2017-12-12 04:00] VITALS: BP 130/60
[2017-12-12 05:24] LABS: HEMOGLOBIN 10.2 G/DL (11.5-16.0); RED BLOOD COUNT 3.7 10^6/uL (4.35-5.85); RED CELL DISTRIBUTION WIDTH 16.3 % (10.0-14.5); WHITE BLOOD COUNT 6.9 10^3/uL (4.3-11.0)
[2017-12-12 05:37] LABS: BUN/CREATININE RATIO 20; CALCIUM 8.8 MG/DL (8.5-10.1); CARBON DIOXIDE 26 MMOL/L (21-32); CHLORIDE 107 MMOL/L (98-107); CREATININE SERUM 0.85 MG/DL (0.60-1.30); GFR ESTIMATED > 60; GLUCOSE 82 MG/DL (70-105); POTASSIUM 3.4 MMOL/L (3.6-5.0); SODIUM 144 MMOL/L (135-145)
[2017-12-12] MEDS: PANTOPRAZOLE 20 MG TABLET (PROTONIX) PO SCH (06:36)
[2017-12-12] MEDS: GABAPENTIN 100 MG (NEURONTIN) CAP PO SCH ×3 (06:36→20:06)
[2017-12-12] MEDS: glipiZIDE XL 5 MG (GLUCOTROL XL) TAB PO SCH (06:36)
[2017-12-12] MEDS: NS IV 1000 ML 1,000 ML IV SCH (06:38)
[2017-12-12] MEDS: FUROSEMIDE 40 MG/4 ML INJ (LASIX) IVP SCH ×2 (06:38→16:45)
[2017-12-12] MEDS: inSUlin (REGULAR) HUMAN 1 UNIT/0.01 ML (CHARGE PER UNIT) SC SCH ×4 (07:46→20:06)
[2017-12-12 08:00] VITALS: BP 120/66
[2017-12-12] MEDS ORDERED: OMEPRAZOLE 20 MG (PriLOSEC) CAP NON-FORMULARY PO SCH (09:00)
[2017-12-12] MEDS ORDERED: NON-FORMULARY MEDICATION 1 EA EA (Amlodipine Besylate 10 MG) PO SCH (09:00)
[2017-12-12] MEDS: CARVEDILOL 12.5 MG (COREG) TABLET PO SCH ×2 (09:19→20:06)
[2017-12-12] MEDS: KCL 10 MEQ TAB (MICRO K) PO SCH (09:19)
[2017-12-12] MEDS: DOCUSATE SODIUM 100 MG (COLACE) CAP PO SCH (09:20)
[2017-12-12] MEDS: amLODIPine 10 MG (NORVASC) TAB PO SCH (09:20)
[2017-12-12] MEDS: FAMOTIDINE 20 MG (PEPCID) TABLET PO SCH ×2 (09:20→20:06)
[2017-12-12 12:00] VITALS: BP 107/67
[2017-12-12] MEDS ORDERED: INSULIN DEGLUDEC 26 UNIT SC SCH (12:00)
[2017-12-12] MEDS: inSUlin DETERMIR 1 UNIT/0.01 ML (LEVEMIR) CHARGE PER UNIT SQ SCH (12:03)
[2017-12-12] MEDS: ENOXAPARIN 40 MG/0.4 ML (LOVENOX) SYR SC SCH (12:03)
--- NOTE | 2017-12-12 12:51 | Consultation-Cardiology ---
HPI-Cardiology Cardiology Consultation: Date of Consultation 12/12/17 Date of Admission Attending Physician Amber Figueroa MD Admitting Physician Amber Figueroa MD Consulting Physician Agustina KUNZ MD HPI: Time Seen by a Provider: 13:30 Chief Complaint: Shortness of breath This is a 82-year-old lady who is a patient of Dr. Figueroa. She presented to Dr. Figueroa office with significant shortness of breath which has been worsening in the last few days to weeks. She also complains of orthopnea and occasional PND. Significant lower extremity swelling. The patient denies any chest pain, syncope or near syncope. She was found to be hypoxic in the clinic and improved with oxygen therapy. The patient denies any significant cardiac history. She also denies smoking. Review of Systems-Cardiology Review of Systems Constitutional: As described under HPI; No As described under HPI, No no symptoms reported, No chills, No fever, No lightheadedness Eyes: No As described under HPI, No no symptoms reported, No blindness, No blurred vision, No contact lenses, No drainage, No decreased acuity, No foreign body sensation, No pain, No vision change Ears/Nose/Throat: No As described under HPI, No no symptoms reported, No chronic hearing loss, No ear discharge, No ear pain, No nasal drainage, No ulcerations Respiratory: No no symptoms reported; As described under HPI; No As described under HPI, No cough; orthopnea, shortness of breath; No SOB with excertion; SOB at rest; No stridor, No wheezing, No other Cardiovascular: No no symptoms reported; As described under HPI; No As described under HPI, No chest pain, No edema, No irregular heart rate, No lightheadedness, No palpitations Gastrointestinal: No no symptoms reported, No As described under HPI, No abdomen distended, No abdominal pain, No blood streaked bowels, No constipation , No diarrhea, No nausea, No vomiting, No stool coloration changes Genitourinary: No As described under HPI, No burning, No dysuria, No discharge , No frequency, No flank pain, No hematuria, No urgency : No Skin: No rash, No skin related problems, No ulcerations Psychiatric/Neurological: No anxiety, No depression, No seizure, No focal weakness, No syncope Hematologic: No bleeding abnormalities All Other Systems Reviewed Negative Unless Noted: Yes [id number] Hx Patient Social History Marrital Status: Number of Children: 5 Living Status: LIVES AT HOME WITH HER [place] Employed/Student: retired Alcohol Use: Denies Use Recreational Drug Use: No Smoking Status: Former Smoker (22PACK YEAR) Type Used: Cigarettes 2nd Hand Smoke Exposure: No Recent Foreign Travel: No Recent Infectious Disease Expo: No Physical Abuse Screen: No Sexual Abuse: No Immunizations Up To Date Tetanus Booster (TDap): Unknown Date of Pneumonia Vaccine: Aug 08, 2011 Date of Influenza Vaccine: Nov 07, 2016 Past Medical History PMH As described under Assessment. Family Medical History Family History: Myocardial infarction 19 MOTHER Allergies and Home Medications Allergies Coded Allergies: NKANo Known Allergies (Verified Allergy, Unknown, 12/11/17) Home Medications Amlodipine Besylate 10 Mg Tablet, 10 MG PO DAILY, (Reported) Carvedilol 25 Mg Tablet, 25 MG PO BID, (Reported) Docusate Sodium 100 Mg Capsule, 100 MG PO DAILY, (Reported) Escitalopram Oxalate 20 Mg Tablet, 20 MG PO HS, (Reported) Furosemide 20 Mg Tablet, 40 MG PO DAILY, (Reported) TAKES 2 (20MG) TABLETS Gabapentin 100 Mg Capsule, 100 MG PO 0700,1530, (Reported) Gabapentin 100 Mg Capsule, 300 MG PO HS, (Reported) TAKES 3 (100MG) CAPSULES Glipizide 5 Mg Tab.er.24, 5 MG PO DAILY, (Reported) Hydrocodone/Acetaminophen 1 Each Tablet, 1 TAB PO Q4H PRN for PAIN-MODERATE, ( Reported) Insulin Degludec 200 Unit/1 Ml Insuln.pen, 26 UNITS SC 1200, (Reported) [place] 3 Polyunsat Fatty Acids 1,000 Mg Cap, 1,000 MG PO BID, (Reported) Omeprazole 20 Mg Capsule.dr, 20 MG PO DAILY, (Reported) Potassium Chloride 10 Meq Tablet.er, 10 MEQ PO DAILY, (Reported) Simvastatin 20 Mg Tablet, 20 MG PO HS, (Reported) Patient Home Medication List Home Medication List Reviewed: Yes Physical Exam-Cardiology Physical Exam Vital Signs/I&O 12/12/17 12/12/17 12/12/17 12/12/17 04:00 07:23 08:00 08:00 Temp 99.4 99.4 Pulse 70 70 Resp 16 18 B/P (MAP) 130/60 (83) 120/66 (84) Pulse Ox 93 88 93 88 O2 Delivery Nasal Cannula Nasal Cannula Nasal Cannula Nasal Cannula O2 Flow Rate 2.00 2.00 2.00 2.00 12/12/17 12/12/17 11:06 12:00 Temp 97.7 Pulse 70 Resp 18 B/P (MAP) 107/67 (80) Pulse Ox 95 97 O2 Delivery Nasal Cannula Nasal Cannula O2 Flow Rate 2.00 2.00 12/12/17 00:00 Intake Total 620 ml Output Total 3825 ml Balance -3205 ml Capillary Refill : Constitutional: appears stated age, AAO x 3; No apparent distress; well- developed, well-nourished HEENT: PERRL; No normal ENT inspection, No TMs normal, No pharynx normal, No scleral icterus (R), No scleral icterus (L), No pale conjunctivae (R), No pale conjunctivae (L), No photophobia, No TM abnormal (R), No TM abnormal (L), No pharyngeal erythema, No tonsillar exudate, No other, No discharge, No EOMI; hearing is well preserved; No hard of hearing; oral hygience is good; No ulceration, No xanthelasmas are seen Neck: No non-tender, No full range of motion, No supple, No normal inspection, No carotid bruit, No limited range of motion, No lymphadenopathy (R), No lymphadenopathy (L), No tender lateral, No tender midline, No thyromegaly, No other; carotid pulses are 2 + bilaterally; No with good upstrokes Respiratory: No accessory muscle use, No respiratory distress, No chest tender , No chest expansion is symmetric; chest is bilaterally symmetric; No lungs clear to percussion; lungs clear to auscultation; No crackles, No rhonchi, No rales, No stridor, No wheezing, No pleural rub, No other Cardiovascular: regular rate-rhythm; No irregularly irregular, No extra beats, No parasternal heave is noted, No JVD, No edema, No bradycardia, No tachycardia , No point of maximal impulse, No cardiac thrills are palpable; S1 and S2; No gallop/S3, No gallop/S4, No diastolic murmur, No systolic murmur, No friction rub, No click, No other Gastrointestinal: No tender, No soft, No round, No distended, No pulsatile mass , No organomegaly, No guarding, No rebound, No tenderness, No hernia, No mass, No audible bowel sounds, No abnormal bowel sounds, No abdominal bruits, No spleenomegaly, No other Rectal: deferred Extremities: No normal range of motion, No non-tender, No normal inspection, No pedal edema, No calf tenderness, No normal capillary refill, No pelvis stable , No calf tenderness, No inflammation, No pedal edema, No slow capillary refill , No swelling, No other, No abrasion, No clubbing, No cyanosis, No ecchymosis, No laceration, No no lower extremity edema bilateral, No significant edema, No tenderness, No wound Neurologic/Psychiatric: no motor/sensory deficits, alert, normal mood/affect, oriented x 3, power is 5/5 both on sides Skin: No normal color, No warm/dry, No cyanosis, No cool, No diaphoresis, No damp, No ecchymosis, No jaundice, No mottled, No pallor, No rash, No tattoos/ piercings, No ulcerations, No rash on exposed areas, No ulcerations on exposed areas, No other Data Review Labs Laboratory Tests 12/11/17 16:30: Glucometer 99 12/11/17 20:02: Glucometer 112H 12/12/17 05:12: White Blood Count 6.9, Red Blood Count 3.70L, Hemoglobin 10.2L, Hematocrit 32L, Mean Corpuscular Volume 87, Mean Corpuscular Hemoglobin 28, Mean Corpuscular Hemoglobin Concent 32, Red Cell Distribution Width 16.3H, Platelet Count 182, Mean Platelet Volume 11.0H, Sodium Level 144, Potassium Level 3.4L, Chloride Level 107, Carbon Dioxide Level 26, Anion Gap 11, Blood Urea Nitrogen 17, Creatinine 0.85, Estimat Glomerular Filtration Rate > 60, BUN/Creatinine Ratio 20, Glucose Level 82, Calcium Level 8.8 12/12/17 11:26: Glucometer 114H ECG Impression ECG Initial ECG Impression: Atrial Fibrillation A/P-Cardiology Assessment/Admission Diagnosis Shortness of breath, Diabetes, Hypertension, Atrial fibrillation, Hyperlipidemia Plan Congestive heart failure needs to be ruled out. Agree with echocardiogram. Continue IV Lasix. On oxygen therapy. Atrial fibrillation: Will require oral anticoagulation therapy if no contraindication. Continue beta kodi for rate control. Continue current medical therapy for diabetes. Hypertension: Continue amlodipine and carvedilol. Blood pressure is well controlled. Hyperlipidemia: Continue pravastatin. Thank you for your consultation. Please call me if you have any questions. Mena Kunz MD, FACP, FACC, FSCAI, FHRS, CCDS Interventional Cardiology Cardiac Electrophysiology Vascular Medicine and Endovascular Interventions Clinical Quality Measures DVT/VTE Risk/Contraindication: Risk Factor Score Per Nursin RFS Level Per Nursing on Admit: 4+=Very High Agustina KUNZ MD Dec 12, 2017 12:51 pm
[2017-12-12 16:00] VITALS: BP 128/60
[2017-12-12 20:05] VITALS: BP 124/60
[2017-12-13] VITALS: BP 133/61
[2017-12-13] MEDS: NS IV 1000 ML 1,000 ML IV SCH (03:58)
[2017-12-13 04:00] VITALS: BP 111/59
[2017-12-13 04:41] LABS: HEMOGLOBIN 10.1 G/DL (11.5-16.0); MEAN PLATELET VOLUME 10.3 FL (7.4-10.4); RED BLOOD COUNT 3.83 10^6/uL (4.35-5.85); RED CELL DISTRIBUTION WIDTH 16.3 % (10.0-14.5); WHITE BLOOD COUNT 6.5 10^3/uL (4.3-11.0)
[2017-12-13 04:58] LABS: BUN/CREATININE RATIO 17; CALCIUM 8.8 MG/DL (8.5-10.1); CARBON DIOXIDE 28 MMOL/L (21-32); CHLORIDE 106 MMOL/L (98-107); CREATININE SERUM 0.88 MG/DL (0.60-1.30); GFR ESTIMATED > 60; GLUCOSE 99 MG/DL (70-105); POTASSIUM 3.2 MMOL/L (3.6-5.0); SODIUM 143 MMOL/L (135-145)
[2017-12-13] MEDS: glipiZIDE XL 5 MG (GLUCOTROL XL) TAB PO SCH (06:11)
[2017-12-13] MEDS: PANTOPRAZOLE 20 MG TABLET (PROTONIX) PO SCH (06:11)
[2017-12-13] MEDS: FUROSEMIDE 40 MG/4 ML INJ (LASIX) IVP SCH ×2 (06:11→17:12)
[2017-12-13] MEDS: GABAPENTIN 100 MG (NEURONTIN) CAP PO SCH ×3 (06:11→20:29)
[2017-12-13 08:00] VITALS: BP 130/60
[2017-12-13] MEDS: KCL 10 MEQ TAB (MICRO K) PO SCH (08:14)
[2017-12-13] MEDS: CARVEDILOL 12.5 MG (COREG) TABLET PO SCH ×2 (08:14→20:29)
[2017-12-13] MEDS: inSUlin (REGULAR) HUMAN 1 UNIT/0.01 ML (CHARGE PER UNIT) SC SCH ×4 (08:14→21:54)
[2017-12-13] MEDS: amLODIPine 10 MG (NORVASC) TAB PO SCH (08:14)
[2017-12-13] MEDS: FAMOTIDINE 20 MG (PEPCID) TABLET PO SCH ×2 (08:14→20:29)
[2017-12-13] MEDS: DOCUSATE SODIUM 100 MG (COLACE) CAP PO SCH (08:14)
[2017-12-13] MEDS: ENOXAPARIN 40 MG/0.4 ML (LOVENOX) SYR SC SCH (11:38)
[2017-12-13] MEDS: inSUlin DETERMIR 1 UNIT/0.01 ML (LEVEMIR) CHARGE PER UNIT SQ SCH (11:38)
--- NOTE | 2017-12-13 11:47 | Progress Note-Hospitalist ---
Progress Note Progress Notes/Assess & Plan Date Seen 12/12/17 Time Seen by Provider: 13:00 Assessment & Plan The patient is an 82-year-old white female admitted yesterday by Dr. Figueroa. She had presented to Dr. Figueroa's office with complaints of increasing shortness of breath. She had been on Lasix 40 mg daily. She reported her weight to be up in the range of 20 pounds or more. She states that she had been sleeping in the recliner for several weeks because of increasing shortness of breath. Her SaO2 was reported as [address] Figueroa's office. Her I:O today was 3205 mL. Physical exam: She is sitting in the chair. She appears comfortable. Breath sounds are somewhat distant. There is no jugular venous distention. CV is regular. Extremities show coarse scan and 1-2+ edema. There is pitting. Chest x-ray showed cardiomegaly and mild pulmonary edema. Impression: Pulmonary edema. 2.generalized edema. 3.diabetes. 4.hypertension Plan: Continue Lasix. Follow electrolytes. LILY DAVIS MD Dec 13, 2017 11:47
[2017-12-13 12:00] VITALS: BP 121/59
--- NOTE | 2017-12-13 12:08 | Progress Note-Hospitalist ---
Progress Note Progress Notes/Assess & Plan Date Seen 12/13/17 Time Seen by Provider: 11:40 Assessment & Plan The patient reports she continues to improve. Her I:O ratio is an additional 2350. Potassium is 3.2 today and will be addressed. She has no specific complaints. Her echocardiogram report is not yet available. Physical exam: There is no JVD. She is not tachypneic. Breath sounds are somewhat distant. CV is regular. There is one plus pretibial edema. Impression: Satisfactory diuresis. 2.generalized edema improving. Plan: Add potassium supplement. LILY DAVIS MD Dec 13, 2017 12:08
[2017-12-13] MEDS ORDERED: KCL 10 MEQ TAB (MICRO K) PO ONE (12:30)
--- NOTE | 2017-12-13 14:46 | Cardiology Progress Note ---
Cardiology SOAP Progress Note Subjective: Improved shortness of breath. Objective: I&O/Vital Signs 12/13/17 12/13/17 12/13/17 12/13/17 04:00 06:47 08:00 08:00 Temp 97.9 97.3 Pulse 64 63 Resp 16 20 B/P (MAP) 111/59 (76) 130/60 (83) Pulse Ox 93 91 92 91 O2 Delivery Nasal Cannula Nasal Cannula Nasal Cannula O2 Flow Rate 3.00 3.00 3.00 3.00 12/13/17 12:00 Temp 96.2 Pulse 69 Resp 22 B/P (MAP) 121/59 (79) Pulse Ox 98 O2 Delivery Nasal Cannula O2 Flow Rate 3.00 12/13/17 00:00 Intake Total 1400 ml Output Total 4300 ml Balance -2900 ml Weight (Pounds): 228 Weight (Ounces): 12.8 Weight (Calculated Kilograms): 103.044944 Constitutional: appears stated age, AAO x 3; No apparent distress; well- developed, well-nourished Respiratory: No accessory muscle use, No respiratory distress, No chest tender , No chest expansion is symmetric; chest is bilaterally symmetric; No lungs clear to percussion; lungs clear to auscultation; No crackles, No rhonchi, No rales, No stridor, No wheezing, No pleural rub, No other Cardiovascular: irregularly irregular; No extra beats, No parasternal heave is noted, No JVD, No edema, No bradycardia, No tachycardia, No point of maximal impulse, No cardiac thrills are palpable; S1 and S2; No gallop/S3, No gallop/S4 , No diastolic murmur, No systolic murmur, No friction rub, No click, No other Gastrointestional: No tender, No soft, No round, No distended, No pulsatile mass, No organomegaly, No guarding, No rebound, No tenderness, No hernia, No mass, No audible bowel sounds, No abnormal bowel sounds, No abdominal bruits, No spleenomegaly, No other Extremities: No normal range of motion, No non-tender, No normal inspection, No pedal edema, No calf tenderness, No normal capillary refill, No pelvis stable , No calf tenderness, No inflammation, No pedal edema, No slow capillary refill , No swelling, No other, No abrasion, No clubbing, No cyanosis, No ecchymosis, No laceration, No no lower extremity edema bilateral, No significant edema, No tenderness, No wound Neurologic/Psychiatric: no motor/sensory deficits, alert, normal mood/affect, oriented x 3, power is 5/5 both on sides Skin: No normal color, No warm/dry, No cyanosis, No cool, No diaphoresis, No damp, No ecchymosis, No jaundice, No mottled, No pallor, No rash, No tattoos/ piercings, No ulcerations, No rash on exposed areas, No ulcerations on exposed areas, No other Results/Procedures: Labs Laboratory Tests 12/12/17 16:45: Glucometer 114H 12/12/17 20:06: Glucometer 98 12/13/17 04:35: White Blood Count 6.5, Red Blood Count 3.83L, Hemoglobin 10.1L, Hematocrit 33L, Mean Corpuscular Volume 87, Mean Corpuscular Hemoglobin 26, Mean Corpuscular Hemoglobin Concent 30L, Red Cell Distribution Width 16.3H, Platelet Count 187, Mean Platelet Volume 10.3, Sodium Level 143, Potassium Level 3.2L, Chloride Level 106, Carbon Dioxide Level 28, Anion Gap 9, Blood Urea Nitrogen 15, Creatinine 0.88, Estimat Glomerular Filtration Rate > 60, BUN/Creatinine Ratio 17, Glucose Level 99, Calcium Level 8.8 12/13/17 11:26: Glucometer 157H A/P: Assessment/Dx: Shortness of breath, Diabetes, Hypertension, Atrial fibrillation, Hyperlipidemia Plan: Congestive heart failure needs to be ruled out. Continue IV Lasix. On oxygen therapy. Echocardiogram showed normal LV function. Patient was in atrial fibrillation therefore diastolic function could not be assessed. Shortness of breath likely multifactorial due to atrial fibrillation, diastolic dysfunction, pulmonary hypertension and moderate to severe tricuspid regurgitation. Atrial fibrillation: Will require oral anticoagulation therapy if no contraindication. Continue beta kodi for rate control. Continue current medical therapy for diabetes. Hypertension: Continue amlodipine and carvedilol. Blood pressure is well controlled. Hyperlipidemia: Continue pravastatin. Pulmonary hypertension, PA pressure 39 mmHg., Continue to follow clinically. Moderate to severe tricuspid regurgitation, continue to follow clinically. Thank you for your consultation. Please call me if you have any questions. M. Homero Kunz MD, FACP, FACC, FSCAI, FHRS, CCDS Interventional Cardiology Cardiac Electrophysiology Vascular Medicine and Endovascular Interventions Agustina KUNZ MD Dec 13, 2017 2:46 pm
[2017-12-13 15:35] VITALS: BP 122/58
[2017-12-13 19:50] VITALS: BP 132/58
[2017-12-14] MEDS: NS IV 1000 ML 1,000 ML IV SCH (00:18)
[2017-12-14 00:53] VITALS: BP 126/61
[2017-12-14 04:43] VITALS: BP 126/58
[2017-12-14 05:37] LABS: HEMOGLOBIN 10.2 G/DL (11.5-16.0); MEAN PLATELET VOLUME 10.6 FL (7.4-10.4); RED BLOOD COUNT 3.79 10^6/uL (4.35-5.85); RED CELL DISTRIBUTION WIDTH 16.1 % (10.0-14.5); WHITE BLOOD COUNT 6.5 10^3/uL (4.3-11.0)
[2017-12-14 05:51] LABS: BUN/CREATININE RATIO 17; CALCIUM 9.1 MG/DL (8.5-10.1); CARBON DIOXIDE 27 MMOL/L (21-32); CHLORIDE 106 MMOL/L (98-107); CREATININE SERUM 0.76 MG/DL (0.60-1.30); GFR ESTIMATED > 60; GLUCOSE 75 MG/DL (70-105); POTASSIUM 3.2 MMOL/L (3.6-5.0); SODIUM 144 MMOL/L (135-145)
[2017-12-14] MEDS: inSUlin (REGULAR) HUMAN 1 UNIT/0.01 ML (CHARGE PER UNIT) SC SCH ×4 (05:54→21:23)
[2017-12-14] MEDS: FUROSEMIDE 40 MG/4 ML INJ (LASIX) IVP SCH ×2 (06:09→18:14)
[2017-12-14] MEDS: PANTOPRAZOLE 20 MG TABLET (PROTONIX) PO SCH (06:09)
[2017-12-14] MEDS: glipiZIDE XL 5 MG (GLUCOTROL XL) TAB PO SCH (06:09)
[2017-12-14] MEDS: KCL 10 MEQ TAB (MICRO K) PO SCH (06:10)
[2017-12-14] MEDS: GABAPENTIN 100 MG (NEURONTIN) CAP PO SCH ×3 (06:11→20:06)
[2017-12-14 08:00] VITALS: BP 131/59
[2017-12-14] MEDS: HYDROcodone/APAP 10 MG/325 MG (LORTAB) TAB PO PRN (08:15)
[2017-12-14] MEDS: FAMOTIDINE 20 MG (PEPCID) TABLET PO SCH ×2 (08:15→20:06)
[2017-12-14] MEDS: DOCUSATE SODIUM 100 MG (COLACE) CAP PO SCH (08:15)
[2017-12-14] MEDS: CARVEDILOL 12.5 MG (COREG) TABLET PO SCH ×2 (08:15→20:07)
[2017-12-14] MEDS: amLODIPine 10 MG (NORVASC) TAB PO SCH (08:15)
[2017-12-14] MEDS ORDERED: KCL 10 MEQ TAB (MICRO K) PO NR (09:00)
--- NOTE | 2017-12-14 09:01 | Progress Note (SOAP) ---
Subjective Time Seen by a Provider: 08:59 Subjective/Events-last exam Patient states she is feeling better. Patient lost 5 pounds since admission. Patient getting 25 pounds the last 2 months. Patient on nasal oxygen now. Patient not on nasal oxygen at home. Patient in atrial fibrillation now Objective Exam Vital Signs Date Time Temp Pulse Resp B/P (MAP) Pulse Ox O2 Delivery O2 Flow Rate FiO2 12/14/17 07:45 92 Nasal Cannula 3.00 12/14/17 04:43 98.1 66 19 126/58 (80) 95 Nasal Cannula 3.00 12/14/17 02:14 95 Nasal Cannula 3.00 12/14/17 00:53 98.4 65 18 126/61 (82) 94 Nasal Cannula 3.00 12/13/17 22:15 92 Nasal Cannula 3.00 12/13/17 20:30 Nasal Cannula 3.00 12/13/17 19:50 97.8 77 20 132/58 (82) 95 Nasal Cannula 3.00 12/13/17 18:18 94 Nasal Cannula 3.00 12/13/17 15:35 97.0 70 20 122/58 (79) 96 Nasal Cannula 3.00 12/13/17 14:00 91 Nasal Cannula 3.00 12/13/17 12:00 96.2 69 22 121/59 (79) 98 Nasal Cannula 3.00 12/13/17 10:30 92 Nasal Cannula 3.00 I & O 12/14/17 07:00 Intake Total 3190 ml Output Total 5275 ml Balance -2085 ml Capillary Refill : General Appearance: No Apparent Distress, WD/WN HEENT: Normal ENT Inspection Respiratory: No Accessory Muscle Use, No Respiratory Distress, Decreased Breath Sounds Cardiovascular: Irregularly Irregular Gastrointestinal: non tender, soft Results Lab Laboratory Tests 12/14/17 05:30 Laboratory Tests 12/13/17 11:26: Glucometer 157H 12/13/17 15:39: Glucometer 103 12/13/17 19:51: Glucometer 126H 12/14/17 05:30: White Blood Count 6.5, Red Blood Count 3.79L, Hemoglobin 10.2L, Hematocrit 33L, Mean Corpuscular Volume 87, Mean Corpuscular Hemoglobin 27, Mean Corpuscular Hemoglobin Concent 31L, Red Cell Distribution Width 16.1H, Platelet Count 183, Mean Platelet Volume 10.6H, Sodium Level 144, Potassium Level 3.2L, Chloride Level 106, Carbon Dioxide Level 27, Anion Gap 11, Blood Urea Nitrogen 13, Creatinine 0.76, Estimat Glomerular Filtration Rate > 60, BUN/Creatinine Ratio 17, Glucose Level 75, Calcium Level 9.1 Assessment/Plan Assessment/Plan Assess & Plan/Chief Complaint Hypoxemia. Edema. Diabetes. Hypertension. Weakness. Somnolence. Patient needs oxygen. Atrial fibrillation. Hypoxia. Hypokalemia Clinical Quality Measures DVT/VTE Risk/Contraindication: Risk Factor Score Per Nursin RFS Level Per Nursing on Admit: 4+=Very High GEOVANY NGO DO Dec 14, 2017 09:01
[2017-12-14 11:30] VITALS: BP 102/54
--- NOTE | 2017-12-14 11:36 | Physical Therapy Evaluation ---
PT Evaluation-General Medical Diagnosis Admission Date Dec 11, 2017 at 12:00 Medical Diagnosis: hypoxemia/fluit overload Onset Date: Dec 11, 2017 Therapy Diagnosis Therapy Diagnosis: debility Height/Weight Height (Feet): 5 Height (Inches): 8.00 Weight (Pounds): 227 Weight (Ounces): 9.5 Precautions Precautions/Isolations: Fall Prevention, Standard Precautions Weight Bear Status Right Lower Extremity: Right Full Weight Bearing Left Lower Extremity: Left Full Weight Bearing Referral Physician: Ko Reason for Referral: Evaluation/Treatment Medical History Pertinent Medical History: Atrial Fib, DM, Neuropathy Additional Medical History multiple ortho surgeries Current History direct admit from physician's office secondary to SOA and edema/per family, patient has eating salty foods and not taking care of self at home. Reviewed History: Yes Social History Home: Single Level Current Living Status: Other Family Entry Into Home: Stairs With Railing PT Steps Into Home: 2 Prior/Core FIM Prior Level of Function Functional [place] Measure 0=Not Assessed/NA 4=Minimal Assistance 1=Total Assistance 5=Supervision or Setup 2=Maximal Assistance 6=Modified [place] 3=Moderate Assistance 7=Complete [place] Bed Mobility: 6 Transfers (B,C,W/C) (FIM): 6 Gait: 6 uses cane for mobility PT Evaluation-Current Subjective Patient agrees to PT. Pain Numeric Pain Scale: 0-No Pain Location: No Pain Reported Objective Patient Orientation: Normal For Age Problem Solving: Fair Attachments: Oxygen (3L) ROM/Strength ROM Lower Extremities bilateral LE WFL Strength Lower Extremities 4/5 grossly bilaterally Integumentary/Posture Integumentary refer to nursing notes Bowel Incontinence: No Bladder Incontinence: [place] Cath Posture slight trunk flexed posture in stand Neuromuscular (Tone, Coordination, Reflexes) grossly intact Sensory Vision: Functional Hearing: Functional Sensation Right Lower Extremit: Impaired Sensation Left Lower Extremity: Impaired Transfers Functional [place] Measure 0=Not Assessed/NA 4=Minimal Assistance 1=Total Assistance 5=Supervision or Setup 2=Maximal Assistance 6=Modified [place] 3=Moderate Assistance 7=Complete [place] Transfers (B, C, W/C) (FIM): 6 Scootin Rollin Supine to/from Sit: 6 Sit to/from Stand: 6 Gait Mode of Locomotion: Walk Anticipated Mode of Locomotion: Walk Gait (FIM): 6 Distance (FIM): 3=150 ft Distance: 300' x 2 Gait Level of Assist: 6 Gait Assistive Device: FWW Comments/Gait Description reciprocal pattern with no deviation Stairs Stairs (FIM): 6 #of Steps: 12 Level of Assist: 6 Assistive Device: Cane Balance Sitting Static: Normal Sitting Dynamic: Normal Standing Static: Normal Standing Dynamic: Normal Assessment/Needs 82 y.o. female, will be seen short term by skilled PT to ensure safe return to home at [facility] with all gross motor skills safely. Patient currently lives with family. Rehab Potential: Fair Post Rehab Potential-Barriers: compliance PT Short Term Goals Short Term Goals Time Frame: Dec 16, 2017 Transfers (B,C,W/C) (FIM): 6 Gait (FIM): 6 Distance (FIM): 3=150 ft Gait Level of Assist: 6 Gait Assistive Device: FWW, Cane Single Point PT Plan Treatment/Plan Treatment Plan: Continue Plan of Care Treatment Plan: Education, Functional Activity Patricia, Functional Strength, Gait , Safety, Therapeutic Exercise Treatment Duration: Dec 16, 2017 Frequency: 3 times per week Estimated Hrs Per Day: .25 hour per day Patient and/or Family Agrees t: Yes Discharge Recommendations Therapy D/C Recommendations: Home w/ Family Support, Physical Therapy Home Care , Physical Therapy Outpatient Time/GCodes Time In: 1031 Time Out: 1050 Total Billed Treatment Time: 19 Total Billed Treatment 1 visit [facility] 19 min ISAMAR JADE PT Dec 14, 2017 11:36
[2017-12-14] MEDS: inSUlin DETERMIR 1 UNIT/0.01 ML (LEVEMIR) CHARGE PER UNIT SQ SCH (11:48)
[2017-12-14] MEDS: ENOXAPARIN 40 MG/0.4 ML (LOVENOX) SYR SC SCH (11:49)
--- NOTE | 2017-12-14 15:04 | Cardiology Progress Note ---
Cardiology SOAP Progress Note Subjective: Improved shortness of breath. Objective: I&O/Vital Signs 12/14/17 12/14/17 12/14/17 12/14/17 04:43 07:45 08:00 08:00 Temp 98.1 98.7 Pulse 66 60 Resp 19 18 B/P (MAP) 126/58 (80) 131/59 (83) Pulse Ox 95 92 95 92 O2 Delivery Nasal Cannula Nasal Cannula Nasal Cannula Nasal Cannula O2 Flow Rate 3.00 3.00 3.00 3.00 12/14/17 12/14/17 12/14/17 10:55 11:30 14:52 Temp 97.2 Pulse 60 Resp 20 B/P (MAP) 102/54 (70) Pulse Ox 95 94 94 O2 Delivery Nasal Cannula Nasal Cannula Nasal Cannula O2 Flow Rate 3.00 3.00 3.00 12/14/17 00:00 Intake Total 1840 ml Output Total 4475 ml Balance -2635 ml Weight (Pounds): 227 Weight (Ounces): 9.5 Weight (Calculated Kilograms): 103.702902 Constitutional: appears stated age, AAO x 3; No apparent distress; well- developed, well-nourished Respiratory: No accessory muscle use, No respiratory distress, No chest tender , No chest expansion is symmetric; chest is bilaterally symmetric; No lungs clear to percussion; lungs clear to auscultation; No crackles, No rhonchi, No rales, No stridor, No wheezing, No pleural rub, No other Cardiovascular: irregularly irregular; No extra beats, No parasternal heave is noted, No JVD, No edema, No bradycardia, No tachycardia, No point of maximal impulse, No cardiac thrills are palpable; S1 and S2; No gallop/S3, No gallop/S4 , No diastolic murmur, No systolic murmur, No friction rub, No click, No other Gastrointestional: No tender, No soft, No round, No distended, No pulsatile mass, No organomegaly, No guarding, No rebound, No tenderness, No hernia, No mass, No audible bowel sounds, No abnormal bowel sounds, No abdominal bruits, No spleenomegaly, No other Extremities: No normal range of motion, No non-tender, No normal inspection, No pedal edema, No calf tenderness, No normal capillary refill, No pelvis stable , No calf tenderness, No inflammation, No pedal edema, No slow capillary refill , No swelling, No other, No abrasion, No clubbing, No cyanosis, No ecchymosis, No laceration, No no lower extremity edema bilateral, No significant edema, No tenderness, No wound Neurologic/Psychiatric: no motor/sensory deficits, alert, normal mood/affect, oriented x 3, power is 5/5 both on sides Skin: No normal color, No warm/dry, No cyanosis, No cool, No diaphoresis, No damp, No ecchymosis, No jaundice, No mottled, No pallor, No rash, No tattoos/ piercings, No ulcerations, No rash on exposed areas, No ulcerations on exposed areas, No other Results/Procedures: Labs Laboratory Tests 12/13/17 15:39: Glucometer 103 12/13/17 19:51: Glucometer 126H 12/14/17 05:30: White Blood Count 6.5, Red Blood Count 3.79L, Hemoglobin 10.2L, Hematocrit 33L, Mean Corpuscular Volume 87, Mean Corpuscular Hemoglobin 27, Mean Corpuscular Hemoglobin Concent 31L, Red Cell Distribution Width 16.1H, Platelet Count 183, Mean Platelet Volume 10.6H, Sodium Level 144, Potassium Level 3.2L, Chloride Level 106, Carbon Dioxide Level 27, Anion Gap 11, Blood Urea Nitrogen 13, Creatinine 0.76, Estimat Glomerular Filtration Rate > 60, BUN/Creatinine Ratio 17, Glucose Level 75, Calcium Level 9.1 12/14/17 10:52: Glucometer 121H A/P: Assessment/Dx: Shortness of breath, Diabetes, Hypertension, Atrial fibrillation, Hyperlipidemia Plan: Congestive heart failure needs to be ruled out. Continue IV Lasix. On oxygen therapy. Echocardiogram showed normal LV function. Patient was in atrial fibrillation therefore diastolic function could not be assessed. Shortness of breath likely multifactorial due to atrial fibrillation, diastolic dysfunction, pulmonary hypertension and moderate to severe tricuspid regurgitation. Atrial fibrillation: Will require oral anticoagulation therapy if no contraindication. Continue beta kodi for rate control. Continue current medical therapy for diabetes. Hypertension: Continue amlodipine and carvedilol. Blood pressure is well controlled. Hyperlipidemia: Continue pravastatin. Pulmonary hypertension, PA pressure 39 mmHg., Continue to follow clinically. Moderate to severe tricuspid regurgitation, continue to follow clinically. Thank you for your consultation. Please call me if you have any questions. Mena Kunz MD, FACP, FACC, [facility], FHRS, CCDS Interventional Cardiology Cardiac Electrophysiology Vascular Medicine and Endovascular Interventions Agustina KUNZ MD Dec 14, 2017 3:04 pm
[2017-12-14 15:44] VITALS: BP 128/73
[2017-12-14 20:14] VITALS: BP 125/59
[2017-12-15 00:58] VITALS: BP 122/66
[2017-12-15] MEDS: HYDROcodone/APAP 10 MG/325 MG (LORTAB) TAB PO PRN ×2 (04:00→22:20)
[2017-12-15 04:05] VITALS: BP 142/69
[2017-12-15 04:58] LABS: BASOPHILS % (AUTO) 0 % (0-10); EOSINOPHILS # (AUTO) 0.3 10^3/uL (0.0-0.3); EOSINOPHILS % (AUTO) 4 % (0-10); HEMATOCRIT 34 % (35-52); HEMOGLOBIN 10.5 G/DL (11.5-16.0); LYMPHOCYTES # (AUTO) 1.2 X 10^3 (1.0-4.0); LYMPHOCYTES % (AUTO) 15 % (12-44); MEAN CORPUSCULAR HEMOGLOBIN 27 PG (25-34); MEAN CORPUSCULAR HGB CONC 31 G/DL (32-36); MEAN CORPUSCULAR VOLUME 87 FL (80-99); MEAN PLATELET VOLUME 10.5 FL (7.4-10.4); MONOCYTES # (AUTO) 0.8 X 10^3 (0.0-1.0); MONOCYTES % (AUTO) 10 % (0-12); NEUTROPHILS # (AUTO) 5.4 X 10^3 (1.8-7.8); NEUTROPHILS % (AUTO) 70 % (42-75); PLATELET COUNT 218 10^3/uL (130-400); RED BLOOD COUNT 3.93 10^6/uL (4.35-5.85); RED CELL DISTRIBUTION WIDTH 16.3 % (10.0-14.5); WHITE BLOOD COUNT 7.7 10^3/uL (4.3-11.0)
[2017-12-15 05:19] LABS: ALANINE AMINOTRANSFERASE 11 U/L (0-55); ALBUMIN 3.8 GM/DL (3.2-4.5); ALKALINE PHOSPHATASE 75 U/L (40-136); BILIRUBIN,TOTAL 0.5 MG/DL (0.1-1.0); BUN/CREATININE RATIO 17; CALCIUM 9.4 MG/DL (8.5-10.1); CARBON DIOXIDE 29 MMOL/L (21-32); CHLORIDE 104 MMOL/L (98-107); CREATININE SERUM 0.81 MG/DL (0.60-1.30); GFR ESTIMATED > 60; GLUCOSE 70 MG/DL (70-105); POTASSIUM 3.5 MMOL/L (3.6-5.0); SODIUM 143 MMOL/L (135-145); TOTAL PROTEIN 6.8 GM/DL (6.4-8.2)
[2017-12-15] MEDS: KCL 10 MEQ TAB (MICRO K) PO SCH (05:58)
[2017-12-15] MEDS: FUROSEMIDE 40 MG/4 ML INJ (LASIX) IVP SCH ×2 (05:59→17:05)
[2017-12-15] MEDS: PANTOPRAZOLE 20 MG TABLET (PROTONIX) PO SCH (05:59)
[2017-12-15] MEDS: GABAPENTIN 100 MG (NEURONTIN) CAP PO SCH ×3 (05:59→21:11)
[2017-12-15 08:00] VITALS: BP 119/60
[2017-12-15] MEDS ORDERED: FLU QUADRIvalent (5+ YOA) 2018-2019 (AFLURIA) 0.5 ML IM ONE (08:04)
[2017-12-15] MEDS: inSUlin (REGULAR) HUMAN 1 UNIT/0.01 ML (CHARGE PER UNIT) SC SCH ×4 (08:07→21:12)
[2017-12-15] MEDS: glipiZIDE XL 5 MG (GLUCOTROL XL) TAB PO SCH (08:13)
[2017-12-15] MEDS: FAMOTIDINE 20 MG (PEPCID) TABLET PO SCH ×2 (08:13→21:10)
[2017-12-15] MEDS: CARVEDILOL 12.5 MG (COREG) TABLET PO SCH ×2 (08:13→21:10)
[2017-12-15] MEDS: amLODIPine 10 MG (NORVASC) TAB PO SCH (08:13)
[2017-12-15] MEDS: DOCUSATE SODIUM 100 MG (COLACE) CAP PO SCH (08:13)
--- NOTE | 2017-12-15 09:35 | Physical Therapy Daily Note ---
PT Daily Note-Current Subjective Pt sitting up in bed, had just finished breakfast upon arrival. Pt agrees to PT. Pain Location: No Pain Reported Mental Status Patient Orientation: Person, Place, Situation Attachments: Oxygen (3L), [place] Catheter Transfers Functional [place] Measure 0=Not Assessed/NA 4=Minimal Assistance 1=Total Assistance 5=Supervision or Setup 2=Maximal Assistance 6=Modified [place] 3=Moderate Assistance 7=Complete IndependenceIRFPAI Quality Coding Scale 6 Independent with activity with or without an assistive device 5 Patient requires set up or clean up by helper. Patient completes activity by themselves 4 Supervision or touching assist (CGA). [place] provide cues , steadying assist 3 The helper provides less than half the effort to complete the activity 2 The helper provides more than half the effort to complete the activity 1 Dependent. The helper does all the effort to complete an activity 7 Patient refused to complete or attempt activity 9 The patient did not perform the activity before the current illness or injury 88 Not attempted due to Medical conditions or safety concerns Scootin Rollin Supine to/from Sit: 6 Sit to/from Stand: 6 Weight Bearing Right Lower Extremity: Right Full Weight Bearing Left Lower Extremity: Left Full Weight Bearing Gait Training Distance (FIM): 3=150 ft Distance: 400' Gait Level of Assist: 6 Gait Persons Needed: 1 Gait Assistive Device: FWW Pt walks with flexed posture but is increasing distance waked to 400'. Treatments Pt transfers from bed to standing using FWW at Mod I. Pt ambulates in hallway using FWW at Mod I. Pt returns to room to use restroom at end of tx. Pt has all needs met. 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 Assessment Current Status: Good Progress Pt starts to get SOA by end of walk but O2 remains 95% and above during ambulation. PT Short Term Goals Short Term Goals Time Frame: Dec 16, 2017 Transfers (B,C,W/C) (FIM): 6 Gait (FIM): 6 Distance (FIM): 3=150 ft Gait Level of Assist: 6 Gait Assistive Device: FWW, Cane Single Point PT Plan Problem List Problem List: Activity Tolerance, Gait Treatment/Plan Treatment Plan: Continue Plan of Care Treatment Plan: Education, Functional Activity Patricia, Functional Strength, Gait , Safety, Therapeutic Exercise Treatment Duration: Dec 16, 2017 Frequency: 3 times per week Estimated Hrs Per Day: .25 hour per day Patient and/or Family Agrees t: Yes Safety Risks/Education Patient Education: Gait Training, Transfer Techniques, Correct Positioning, Safety Issues Teaching Recipient: Patient Teaching Methods: Discussion Response to Teaching: Verbalize Understanding Time/GCodes Time In: 900 Time Out: 925 Total Billed Treatment Time: 25 Total Billed Treatment 1, 1, GT (17m) & FA (8m) G Codes Necessary: HÉCTOR Carty ENTRY LEVEL [place] Dec 15, 2017 09:35
[2017-12-15] MEDS: ENOXAPARIN 40 MG/0.4 ML (LOVENOX) SYR SC SCH (11:44)
[2017-12-15] MEDS: inSUlin DETERMIR 1 UNIT/0.01 ML (LEVEMIR) CHARGE PER UNIT SQ SCH (11:46)
[2017-12-15 11:53] VITALS: BP 106/62
--- NOTE | 2017-12-15 14:05 | Cardiology Progress Note ---
Cardiology SOAP Progress Note Subjective: Improved shortness of breath. Objective: I&O/Vital Signs 12/15/17 12/15/17 12/15/17 12/15/17 04:05 08:00 08:00 08:25 Temp 98.7 96.9 Pulse 67 72 Resp 18 18 B/P (MAP) 142/69 (93) 119/60 (79) Pulse Ox 94 95 93 93 O2 Delivery Nasal Cannula Nasal Cannula Nasal Cannula Nasal Cannula O2 Flow Rate 3.00 3.00 3.00 3.00 12/15/17 12/15/17 10:50 11:53 Temp 98.0 Pulse 64 Resp 22 B/P (MAP) 106/62 (77) Pulse Ox 94 96 O2 Delivery Nasal Cannula Nasal Cannula O2 Flow Rate 3.00 3.00 12/15/17 00:00 Intake Total 1780 ml Output Total 2925 ml Balance -1145 ml Weight (Pounds): 224 Weight (Ounces): 12.8 Weight (Calculated Kilograms): 101.330076 Constitutional: appears stated age, AAO x 3; No apparent distress; well- developed, well-nourished Respiratory: No accessory muscle use, No respiratory distress, No chest tender , No chest expansion is symmetric; chest is bilaterally symmetric; No lungs clear to percussion; lungs clear to auscultation; No crackles, No rhonchi, No rales, No stridor, No wheezing, No pleural rub, No other Cardiovascular: irregularly irregular; No extra beats, No parasternal heave is noted, No JVD, No edema, No bradycardia, No tachycardia, No point of maximal impulse, No cardiac thrills are palpable; S1 and S2; No gallop/S3, No gallop/S4 , No diastolic murmur, No systolic murmur, No friction rub, No click, No other Gastrointestional: No tender, No soft, No round, No distended, No pulsatile mass, No organomegaly, No guarding, No rebound, No tenderness, No hernia, No mass, No audible bowel sounds, No abnormal bowel sounds, No abdominal bruits, No spleenomegaly, No other Extremities: No normal range of motion, No non-tender, No normal inspection, No pedal edema, No calf tenderness, No normal capillary refill, No pelvis stable , No calf tenderness, No inflammation, No pedal edema, No slow capillary refill , No swelling, No other, No abrasion, No clubbing, No cyanosis, No ecchymosis, No laceration, No no lower extremity edema bilateral, No significant edema, No tenderness, No wound Neurologic/Psychiatric: no motor/sensory deficits, alert, normal mood/affect, oriented x 3, power is 5/5 both on sides Skin: No normal color, No warm/dry, No cyanosis, No cool, No diaphoresis, No damp, No ecchymosis, No jaundice, No mottled, No pallor, No rash, No tattoos/ piercings, No ulcerations, No rash on exposed areas, No ulcerations on exposed areas, No other Results/Procedures: Labs Laboratory Tests 12/14/17 15:55: Glucometer 92 12/14/17 20:38: Glucometer 130H 12/15/17 04:50: White Blood Count 7.7, Red Blood Count 3.93L, Hemoglobin 10.5L, Hematocrit 34L, Mean Corpuscular Volume 87, Mean Corpuscular Hemoglobin 27, Mean Corpuscular Hemoglobin Concent 31L, Red Cell Distribution Width 16.3H, Platelet Count 218, Mean Platelet Volume 10.5H, Neutrophils (%) (Auto) 70, Lymphocytes (%) (Auto) 15 , Monocytes (%) (Auto) 10, Eosinophils (%) (Auto) 4, Basophils (%) (Auto) 0, Neutrophils # (Auto) 5.4, Lymphocytes # (Auto) 1.2, Monocytes # (Auto) 0.8, Eosinophils # (Auto) 0.3, Basophils # (Auto) 0.0, Sodium Level 143, Potassium Level 3.5L, Chloride Level 104, Carbon Dioxide Level 29, Anion Gap 10, Blood Urea Nitrogen 14, Creatinine 0.81, Estimat Glomerular Filtration Rate > 60, BUN/ Creatinine Ratio 17, Glucose Level 70, Calcium Level 9.4, Corrected Calcium 9.6 , Total Bilirubin 0.5, Aspartate Amino Transf (AST/SGOT) 22, Alanine Aminotransferase (ALT/SGPT) 11, Alkaline Phosphatase 75, Total Protein 6.8, Albumin 3.8 12/15/17 05:44: Glucometer 78 12/15/17 10:56: Glucometer 143H A/P: Assessment/Dx: Shortness of breath, Diabetes, Hypertension, Atrial fibrillation, Hyperlipidemia Plan: Shortness of breath: Continue IV Lasix. On oxygen therapy. Echocardiogram showed normal LV function. Patient was in atrial fibrillation therefore diastolic function could not be assessed. Shortness of breath likely multifactorial due to atrial fibrillation, diastolic dysfunction, pulmonary hypertension and moderate to severe tricuspid regurgitation. Paroxysmal Atrial fibrillation: Will require oral anticoagulation therapy if no contraindication. Continue beta kodi for rate control. Continue current medical therapy for diabetes. Hypertension: Continue amlodipine and carvedilol. Blood pressure is well controlled. Hyperlipidemia: Continue pravastatin. Pulmonary hypertension, PA pressure 39 mmHg., Continue to follow clinically. Moderate to severe tricuspid regurgitation, continue to follow clinically. Thank you for your consultation. Please call me if you have any questions. Mena Kunz MD, FACP, FACC, FSCAI, FHRS, CCDS Interventional Cardiology Cardiac Electrophysiology Vascular Medicine and Endovascular Interventions Agustina KUNZ MD Dec 15, 2017 2:05 pm
[2017-12-15 16:00] VITALS: BP 130/68
--- NOTE | 2017-12-15 18:56 | Progress Note (SOAP) ---
Subjective Time Seen by a Provider: 18:54 Subjective/Events-last exam Patient feels 75 percent better. Patient lost 18 pounds. Swelling of legs is much less. Shortness of breath is improving on a half liter of nasal oxygen. Diabetes. Hypertension. Atrial fib. Hyperlipidemia Objective Exam Vital Signs Date Time Temp Pulse Resp B/P (MAP) Pulse Ox O2 Delivery O2 Flow Rate FiO2 12/15/17 16:00 98.1 83 18 130/68 (88) 95 Nasal Cannula 0.50 12/15/17 14:39 95 Nasal Cannula 3.00 12/15/17 11:53 98.0 64 22 106/62 (77) 96 Nasal Cannula 3.00 12/15/17 10:50 94 Nasal Cannula 3.00 12/15/17 08:25 93 Nasal Cannula 3.00 12/15/17 08:00 93 Nasal Cannula 3.00 12/15/17 08:00 96.9 72 18 119/60 (79) 95 Nasal Cannula 3.00 12/15/17 04:05 98.7 67 18 142/69 (93) 94 Nasal Cannula 3.00 12/15/17 01:58 91 Nasal Cannula 3.00 12/15/17 00:58 98.8 62 19 122/66 (84) 95 Nasal Cannula 3.00 12/14/17 22:04 95 Nasal Cannula 3.00 12/14/17 20:26 Nasal Cannula 3.00 12/14/17 20:14 97.8 72 20 125/59 (81) 96 Nasal Cannula 3.00 12/14/17 19:15 95 Nasal Cannula 3.00 I & O 12/15/17 07:00 Intake Total 2650 ml Output Total 4425 ml Balance -1775 ml Capillary Refill : General Appearance: No Apparent Distress, WD/WN HEENT: Normal ENT Inspection Neck: Full Range of Motion, Normal Inspection Respiratory: No Accessory Muscle Use, No Respiratory Distress, Decreased Breath Sounds Cardiovascular: Irregularly Irregular Gastrointestinal: non tender, soft Results Lab Laboratory Tests 12/15/17 04:50 Laboratory Tests 12/14/17 20:38: Glucometer 130H 12/15/17 04:50: White Blood Count 7.7, Red Blood Count 3.93L, Hemoglobin 10.5L, Hematocrit 34L, Mean Corpuscular Volume 87, Mean Corpuscular Hemoglobin 27, Mean Corpuscular Hemoglobin Concent 31L, Red Cell Distribution Width 16.3H, Platelet Count 218, Mean Platelet Volume 10.5H, Neutrophils (%) (Auto) 70, Lymphocytes (%) (Auto) 15 , Monocytes (%) (Auto) 10, Eosinophils (%) (Auto) 4, Basophils (%) (Auto) 0, Neutrophils # (Auto) 5.4, Lymphocytes # (Auto) 1.2, Monocytes # (Auto) 0.8, Eosinophils # (Auto) 0.3, Basophils # (Auto) 0.0, Sodium Level 143, Potassium Level 3.5L, Chloride Level 104, Carbon Dioxide Level 29, Anion Gap 10, Blood Urea Nitrogen 14, Creatinine 0.81, Estimat Glomerular Filtration Rate > 60, BUN/ Creatinine Ratio 17, Glucose Level 70, Calcium Level 9.4, Corrected Calcium 9.6 , Total Bilirubin 0.5, Aspartate Amino Transf (AST/SGOT) 22, Alanine Aminotransferase (ALT/SGPT) 11, Alkaline Phosphatase 75, Total Protein 6.8, Albumin 3.8 12/15/17 05:44: Glucometer 78 12/15/17 10:56: Glucometer 143H 12/15/17 15:51: Glucometer 113H Assessment/Plan Assessment/Plan Assess & Plan/Chief Complaint Hypoxemia. Edema. Diabetes. Hypertension. Weakness. Somnolence. Patient needs oxygen. Atrial fibrillation. Hypoxia. Hypokalemia. . 12/15/17. Edema better. Diabetes. Hypertension. Patient on a half liters of nasal oxygen. Weakness. Atrial fibrillation. Patient feels 75 percent better Clinical Quality Measures DVT/VTE Risk/Contraindication: Risk Factor Score Per Nursin RFS Level Per Nursing on Admit: 4+=Very High GEOVANY NGO DO Dec 15, 2017 18:56
[2017-12-15 20:47] VITALS: BP 130/61
[2017-12-16] VITALS (7 sets, daily range): BP systolic 112–130; BP diastolic 56–61
[2017-12-16] MEDS: FUROSEMIDE 40 MG/4 ML INJ (LASIX) IVP SCH ×2 (06:16→16:36)
[2017-12-16] MEDS: inSUlin (REGULAR) HUMAN 1 UNIT/0.01 ML (CHARGE PER UNIT) SC SCH ×4 (06:16→20:10)
[2017-12-16] MEDS: GABAPENTIN 100 MG (NEURONTIN) CAP PO SCH ×3 (06:16→20:05)
[2017-12-16] MEDS: KCL 10 MEQ TAB (MICRO K) PO SCH (06:17)
[2017-12-16] MEDS: PANTOPRAZOLE 20 MG TABLET (PROTONIX) PO SCH (06:17)
[2017-12-16] MEDS: glipiZIDE XL 5 MG (GLUCOTROL XL) TAB PO SCH (06:19)
[2017-12-16 06:46] LABS: HEMOGLOBIN 10.8 G/DL (11.5-16.0); MEAN PLATELET VOLUME 10.9 FL (7.4-10.4); RED CELL DISTRIBUTION WIDTH 16.2 % (10.0-14.5); WHITE BLOOD COUNT 6.3 10^3/uL (4.3-11.0)
[2017-12-16 07:07] LABS: BUN/CREATININE RATIO 20; CALCIUM 9.4 MG/DL (8.5-10.1); CARBON DIOXIDE 26 MMOL/L (21-32); CHLORIDE 104 MMOL/L (98-107); CREATININE SERUM 0.87 MG/DL (0.60-1.30); GFR ESTIMATED > 60; GLUCOSE 102 MG/DL (70-105); POTASSIUM 3.5 MMOL/L (3.6-5.0); SODIUM 140 MMOL/L (135-145)
[2017-12-16] MEDS: DOCUSATE SODIUM 100 MG (COLACE) CAP PO SCH (08:08)
[2017-12-16] MEDS: amLODIPine 10 MG (NORVASC) TAB PO SCH (08:09)
[2017-12-16] MEDS: FAMOTIDINE 20 MG (PEPCID) TABLET PO SCH ×2 (08:09→20:05)
[2017-12-16] MEDS: CARVEDILOL 12.5 MG (COREG) TABLET PO SCH ×2 (08:09→20:05)
--- NOTE | 2017-12-16 08:34 | Diagnostic Imaging Report ---
INDICATION: Dyspnea, shortness of breath. TECHNIQUE: Single view chest at 3:34 AM. CORRELATION STUDY: 12/11/2017. FINDINGS: The heart size remains enlarged with a somewhat rounded configuration. The vasculature is slightly increased. There are chronic appearing changes about the lung parenchyma. No definitive infiltrate. No significant pneumothorax. Likely trace pleural effusions. Old healed right posterolateral rib fractures. IMPRESSION: Cardiac enlargement with borderline vasculature. Given configuration of the heart, underlying pericardial effusion and/or cardiomyopathy is not excluded. Probable trace pleural effusions. Dictated by: Dictated on workstation # [id number]
--- NOTE | 2017-12-16 09:34 | Progress Note ---
Subjective Date Seen by a Provider: Dec 16, 2017 Time Seen by a Provider: 08:40 Subjective/Events-last exam PT REPORTS THAT SHE HAD A REALLY ROUGH NIGHT - DID NOT SLEEP WELL. STAFF REPORTS THAT SHE HAD OVER 500 EPISODES OF HYPOXEMIA/APNEA THROUGHOUT THE NIGHT. SHE REPORTS THAT SHE FEELS LIKE HER LEGS ARE MORE SWOLLEN TODAY. Review of Systems General: Fatigue, Malaise HEENT: No Head Aches Pulmonary: Dyspnea, Cough Cardiovascular: No: Chest Pain Gastrointestinal: No: Nausea, Abdominal Pain Genitourinary: Other (GRANT IN PLACE) Neurological: Weakness Objective Exam Last Set of Vital Signs Vital Signs Date Time Temp Pulse Resp B/P (MAP) Pulse Ox O2 Delivery O2 Flow Rate FiO2 12/16/17 08:00 95 Nasal Cannula 0.50 12/16/17 07:00 68 12/16/17 04:23 98.8 19 112/58 (76) Capillary Refill : I&O Intake and Output 12/16/17 00:00 Intake Total 2360 ml Output Total 4250 ml Balance -1890 ml Intake Oral 2360 ml Output Urine Total 4250 ml # Bowel Movements 1 General: Alert, Oriented X3, Cooperative, No Acute Distress HEENT: Atraumatic, PERRLA Neck: Supple Lungs: Other (FAINT CRACKLES AT BASES) Heart: Regular Rate Abdomen: Normal Bowel Sounds, Soft Extremities: Other (EDEMA BILATERAL LOWER EXTREMITIES - 2+ PITTING) Psych/Mental Status: Mental Status NL Results Lab Laboratory Tests 12/15/17 10:56: Glucometer 143H 12/15/17 15:51: Glucometer 113H 12/15/17 20:18: Glucometer 123H 12/16/17 05:40: Glucometer 109 12/16/17 06:05: White Blood Count 6.3, Red Blood Count 4.00L, Hemoglobin 10.8L, Hematocrit 35, Mean Corpuscular Volume 86, Mean Corpuscular Hemoglobin 27, Mean Corpuscular Hemoglobin Concent 31L, Red Cell Distribution Width 16.2H, Platelet Count 212, Mean Platelet Volume 10.9H, Sodium Level 140, Potassium Level 3.5L, Chloride Level 104, Carbon Dioxide Level 26, Anion Gap 10, Blood Urea Nitrogen 17, Creatinine 0.87, Estimat Glomerular Filtration Rate > 60, BUN/Creatinine Ratio 20, Glucose Level 102, Calcium Level 9.4, B-Type Natriuretic Peptide 293.8H Assessment/Plan Assessment/Plan Assess & Plan/Chief Complaint HYPOXEMIA EDEMA 25# WEIGHT GAIN OF FLUID IN 2 MONTHS DIABETES MELLITUS HYPERTENSION PERIPHERAL NEUROPATHY OA OF KNEES WEAKNESS SOMNOLENCE HYPOXEMIA -CHECK CHEST XRAY ON ADMISSION -START ON OXYGEN 2 LITERS NC AND MONITOR HER OXYGEN LEVELS EDEMA - IMPROVED CONTINUE WITH LASIX. DIABETES MELLITUS - LEVEMIR AND REGULAR INSULIN - MONITOR ACCU-CHECKS HYPERTENSION - MONITOR BLOOD PRESSURE RESUME HOME REGIMEN PERIPHERAL NEUROPATHY - STARTED NEURONTIN 400MG BID OA OF KNEES - CHRONIC PAIN SYNDROME - CONTINUE WITH HYDROCODONE PRN FOR PAIN WEAKNESS -PHYSICAL AND OCCUPATIONAL THERAPY INITIATED - PT CONTINUES TO NEED STRENGTHENING - SHE WILL NOT BE ABLE TO SAFELY TRANSITION FROM THE HOSPITAL TO HOME DUE TO HER WEAKNESS AND LACK OF FAMILY IN THE HOME 24 HOURS/DAY HER DAUGHTER WORKS AND CANNOT STAY WITH HER AT HOME CONTINUOUSLY. LOVENOX AND SCDS FOR DVT PROPHYLAXIS GI PROPHYLAXIS WITH PEPCID. Clinical Quality Measures Admission Status Admission Dx HYPOXEMIA EDEMA 25# WEIGHT GAIN OF FLUID IN 2 MONTHS DIABETES MELLITUS HYPERTENSION PERIPHERAL NEUROPATHY OA OF KNEES WEAKNESS SOMNOLENCE DVT/VTE Risk/Contraindication: Risk Factor Score Per Nursin RFS Level Per Nursing on Admit: 4+=Very High DEANGELO FOSTER MD Dec 16, 2017 09:34
--- NOTE | 2017-12-16 10:11 | Physical Therapy Daily Note ---
PT Daily Note-Current Subjective Pt. up in recliner with LEs elevated and SCDs on. Pt. agrees to Rx. Dr. Kunz enters for brief visit and explains that pt is in Afib, the risks of Afib and that she will be started today on a blood thinner that will help prevent problems with a possible bleed. Pt. agreeable to this and PT Rx Pain Numeric Pain Scale: 0-No Pain Comment: c/o she had had so e discomfort in LEs until the swelling was relieved some Mental Status Patient Orientation: Normal For Age Attachments: Oxygen (2L), Chatman Catheter, Other-See Comments (sat monitor, hR monitor) Transfers Functional [place] Measure 0=Not Assessed/NA 4=Minimal Assistance 1=Total Assistance 5=Supervision or Setup 2=Maximal Assistance 6=Modified [place] 3=Moderate Assistance 7=Complete IndependenceIRFPAI Quality Coding Scale 6 Independent with activity with or without an assistive device 5 Patient requires set up or clean up by helper. Patient completes activity by themselves 4 Supervision or touching assist (CGA). [place] provide cues , steadying assist 3 The helper provides less than half the effort to complete the activity 2 The helper provides more than half the effort to complete the activity 1 Dependent. The helper does all the effort to complete an activity 7 Patient refused to complete or attempt activity 9 The patient did not perform the activity before the current illness or injury 88 Not attempted due to Medical conditions or safety concerns sit to stands x 4 all SBA to Mod I Weight Bearing Right Lower Extremity: Right Full Weight Bearing Left Lower Extremity: Left Full Weight Bearing Gait Training Gait Assistive Device: FWW 350ft, 100ft all SBA no LOB, narrow CARLITO at turns, discussed broadeneing CARLITO and crossovers at turns for increased balance and safety Exercises Supine Ex: Ankle pumps, Quad Set, Glut sets, Hip abd/add Supine Reps: 15 Seated Therapy Exercises: Ankle pumps, Sit to stand, Long arc quads, Hip flexion Seated Reps: 10 Treatments toileted and managed this alone Assessment Current Status: Good Progress PT Short Term Goals Short Term Goals Time Frame: Dec 16, 2017 Transfers (B,C,W/C) (FIM): 6 Gait (FIM): 6 Distance (FIM): 3=150 ft Gait Level of Assist: 6 Gait Assistive Device: FWW, Cane Single Point PT Plan Treatment/Plan Treatment Plan: Continue Plan of Care Treatment Plan: Education, Functional Activity Patricai, Functional Strength, Gait , Safety, Therapeutic Exercise Treatment Duration: Dec 16, 2017 Frequency: 3 times per week Estimated Hrs Per Day: .25 hour per day Patient and/or Family Agrees t: Yes Safety Risks/Education Patient Education: Gait Training, Transfer Techniques, Correct Positioning, Disease Process, Safety Issues Teaching Recipient: Patient Teaching Methods: Demonstration, Discussion Response to Teaching: Verbalize Understanding, Return Demonstration, Reinforcement Needed Time/GCodes Time In: 935 Time Out: 1005 Total Billed Treatment Time: 30 Total Billed Treatment 1,EX10m,GT20m G Codes Necessary: NADIR Calabrese SOFTWARE SALES EXECUTIVE Dec 16, 2017 10:11
--- NOTE | 2017-12-16 11:16 | Cardiology Progress Note ---
Cardiology SOAP Progress Note Subjective: Significantly improved shortness of breath. Objective: I&O/Vital Signs 12/16/17 12/16/17 12/16/17 12/16/17 00:32 01:00 01:59 04:23 Temp 99.4 98.8 Pulse 84 76 74 Resp 17 19 B/P (MAP) 127/61 (83) 112/58 (76) Pulse Ox 89 90 95 O2 Delivery Nasal Cannula Room Air Nasal Cannula O2 Flow Rate 0.50 0.50 12/16/17 12/16/17 12/16/17 12/16/17 07:00 08:00 08:00 10:30 Temp 98.6 Pulse 68 72 Resp 18 B/P (MAP) 116/58 (77) Pulse Ox 94 95 92 O2 Delivery Nasal Cannula Nasal Cannula Nasal Cannula O2 Flow Rate 0.50 0.50 2.00 12/16/17 00:00 Intake Total 2040 ml Output Total 2750 ml Balance -710 ml Weight (Pounds): 220 Weight (Ounces): 3.0 Weight (Calculated Kilograms): 99.235917 Constitutional: appears stated age, AAO x 3; No apparent distress; well- developed, well-nourished Respiratory: No accessory muscle use, No respiratory distress, No chest tender , No chest expansion is symmetric; chest is bilaterally symmetric; No lungs clear to percussion; lungs clear to auscultation; No crackles, No rhonchi, No rales, No stridor, No wheezing, No pleural rub, No other Cardiovascular: irregularly irregular; No extra beats, No parasternal heave is noted, No JVD, No edema, No bradycardia, No tachycardia, No point of maximal impulse, No cardiac thrills are palpable; S1 and S2; No gallop/S3, No gallop/S4 , No diastolic murmur, No systolic murmur, No friction rub, No click, No other Gastrointestional: No tender, No soft, No round, No distended, No pulsatile mass, No organomegaly, No guarding, No rebound, No tenderness, No hernia, No mass, No audible bowel sounds, No abnormal bowel sounds, No abdominal bruits, No spleenomegaly, No other Extremities: No normal range of motion, No non-tender, No normal inspection, No pedal edema, No calf tenderness, No normal capillary refill, No pelvis stable , No calf tenderness, No inflammation, No pedal edema, No slow capillary refill , No swelling, No other, No abrasion, No clubbing, No cyanosis, No ecchymosis, No laceration, No no lower extremity edema bilateral, No significant edema, No tenderness, No wound Neurologic/Psychiatric: no motor/sensory deficits, alert, normal mood/affect, oriented x 3, power is 5/5 both on sides Skin: No normal color, No warm/dry, No cyanosis, No cool, No diaphoresis, No damp, No ecchymosis, No jaundice, No mottled, No pallor, No rash, No tattoos/ piercings, No ulcerations, No rash on exposed areas, No ulcerations on exposed areas, No other Results/Procedures: Labs Laboratory Tests 12/15/17 15:51: Glucometer 113H 12/15/17 20:18: Glucometer 123H 12/16/17 05:40: Glucometer 109 12/16/17 06:05: White Blood Count 6.3, Red Blood Count 4.00L, Hemoglobin 10.8L, Hematocrit 35, Mean Corpuscular Volume 86, Mean Corpuscular Hemoglobin 27, Mean Corpuscular Hemoglobin Concent 31L, Red Cell Distribution Width 16.2H, Platelet Count 212, Mean Platelet Volume 10.9H, Sodium Level 140, Potassium Level 3.5L, Chloride Level 104, Carbon Dioxide Level 26, Anion Gap 10, Blood Urea Nitrogen 17, Creatinine 0.87, Estimat Glomerular Filtration Rate > 60, BUN/Creatinine Ratio 20, Glucose Level 102, Calcium Level 9.4, B-Type Natriuretic Peptide 293.8H A/P: Assessment/Dx: Shortness of breath, Diabetes, Hypertension, Atrial fibrillation, Hyperlipidemia Plan: Shortness of breath: Continue IV Lasix. On oxygen therapy. Echocardiogram showed normal LV function. Patient was in atrial fibrillation therefore diastolic function could not be assessed. Shortness of breath likely multifactorial due to atrial fibrillation, diastolic dysfunction, pulmonary hypertension and moderate to severe tricuspid regurgitation. Paroxysmal Atrial fibrillation: Start Eliquis 5 mg twice daily. Continue beta kodi for rate control. Continue current medical therapy for diabetes. Hypertension: Continue amlodipine and carvedilol. Blood pressure is well controlled. Hyperlipidemia: Continue pravastatin. Pulmonary hypertension, PA pressure 39 mmHg., Continue to follow clinically. Moderate to severe tricuspid regurgitation, continue to follow clinically. Thank you for your consultation. Please call me if you have any questions. Mena Kunz MD, FACP, FACC, FSCAI, FHRS, CCDS Interventional Cardiology Cardiac Electrophysiology Vascular Medicine and Endovascular Interventions Agustina KUNZ MD Dec 16, 2017 11:16 am
[2017-12-16] MEDS: inSUlin DETERMIR 1 UNIT/0.01 ML (LEVEMIR) CHARGE PER UNIT SQ SCH (11:46)
[2017-12-16] MEDS: ENOXAPARIN 40 MG/0.4 ML (LOVENOX) SYR SC SCH (11:46)
[2017-12-16] MEDS: APIXABAN 5 MG (ELIQUIS) TABLET PO SCH (20:05)
[2017-12-16] MEDS: HYDROcodone/APAP 10 MG/325 MG (LORTAB) TAB PO PRN (20:05)
[2017-12-17 04:23] VITALS: BP 119/58
[2017-12-17 05:37] LABS: HEMOGLOBIN 11.1 G/DL (11.5-16.0); MEAN PLATELET VOLUME 10.4 FL (7.4-10.4); RED BLOOD COUNT 4.14 10^6/uL (4.35-5.85); RED CELL DISTRIBUTION WIDTH 16.3 % (10.0-14.5); WHITE BLOOD COUNT 5.9 10^3/uL (4.3-11.0)
[2017-12-17 05:56] LABS: CALCIUM 9.3 MG/DL (8.5-10.1); CREATININE SERUM 0.96 MG/DL (0.60-1.30); POTASSIUM 3.7 MMOL/L (3.6-5.0)
[2017-12-17] MEDS: PANTOPRAZOLE 20 MG TABLET (PROTONIX) PO SCH (06:29)
[2017-12-17] MEDS: GABAPENTIN 100 MG (NEURONTIN) CAP PO SCH ×3 (06:29→21:29)
[2017-12-17] MEDS: glipiZIDE XL 5 MG (GLUCOTROL XL) TAB PO SCH (06:29)
[2017-12-17] MEDS: KCL 10 MEQ TAB (MICRO K) PO SCH (06:29)
[2017-12-17] MEDS: FUROSEMIDE 40 MG/4 ML INJ (LASIX) IVP SCH ×2 (06:30→17:19)
[2017-12-17 08:00] VITALS: BP 124/63
[2017-12-17] MEDS: FAMOTIDINE 20 MG (PEPCID) TABLET PO SCH ×2 (08:43→21:26)
[2017-12-17] MEDS: CARVEDILOL 12.5 MG (COREG) TABLET PO SCH ×2 (08:43→21:28)
[2017-12-17] MEDS: DOCUSATE SODIUM 100 MG (COLACE) CAP PO SCH (08:44)
[2017-12-17] MEDS: amLODIPine 10 MG (NORVASC) TAB PO SCH (08:44)
[2017-12-17] MEDS: APIXABAN 5 MG (ELIQUIS) TABLET PO SCH ×2 (08:45→21:26)
--- NOTE | 2017-12-17 08:56 | Discharge Summary ---
Diagnosis/Chief Complaint Date of Admission Dec 11, 2017 at 12:00 Date of Discharge Discharge Date: Dec 18, 2017 Discharge Time: 13:00 Admission Diagnosis Admission Diagnosis HYPOXEMIA EDEMA 25# WEIGHT GAIN OF FLUID IN 2 MONTHS DIABETES MELLITUS HYPERTENSION PERIPHERAL NEUROPATHY OA OF KNEES WEAKNESS SOMNOLENCE Discharge Diagnosis HYPOXEMIA EDEMA 25# WEIGHT GAIN OF FLUID IN 2 MONTHS SLEEP APNEA DIABETES MELLITUS HYPERTENSION PERIPHERAL NEUROPATHY OA OF KNEES WEAKNESS SOMNOLENCE Reason Hospital Visit PT PRESENTED TO THE OFFICE TODAY WITH SEVERE SHORTNESS OF BREATH THAT HAS BEEN ONGOING FOR THE PAST FEW WEEKS BUT WORSENED OVER THE FEW DAYS PRIOR TO THE OFFICE VISIT TODAY. SHE HAS BEEN TAKING HER MEDICATIONS DIRECTED (PER PT AND HER DTR), HOWEVER SHE HAS ALSO BEEN EATING A LOT OF SALTY FOODS AND NOT TAKING GOOD CARE OF HERSELF FROM A DIABETES STANDPOINT. HER DTR REPORTS THAT AMANDA CELESTIN HAS BEEN HAVING TO SLEEP IN HER RECLINER DUE TO HER SHORTNESS OF BREATH AND THAT SHE HAS BEEN GETTING PROGRESSIVELY WEAKER HER SWELLING HAS INCREASED. WHEN SHE GOT TO CLINIC HER OXYGEN WAS 84% AND IT CAME UP TO 92% ON 2 LITERS OF OXYGEN Discharge Summary Discharge Physical Examination Allergies: Coded Allergies: NKANo Known Allergies (Verified Allergy, Unknown, 12/11/17) Vitals & I&Os Vital Signs Date Time Temp Pulse Resp B/P (MAP) Pulse Ox O2 Delivery O2 Flow Rate FiO2 12/18/17 07:00 62 12/18/17 04:02 97.8 19 117/58 (77) 94 Nasal Cannula 2.00 General Appearance: Alert, Oriented X3, Cooperative, No Acute Distress HEENT: Atraumatic, PERRLA Respiratory: Clear to Auscultation, Normal Air Movement Cardiovascular: Regular Rate Abdominal: Normal Bowel Sounds, Soft Extremities: No Clubbing, No Cyanosis, Other (1+PITTING TO ANKLES - NO PITTING AT KNEES) Skin: No Rashes, No Breakdown Neuro: Cranial Nerves 3-12 NL Psych/Mental Status: Mental Status NL, Mood NL Hospital Course HYPOXEMIA EDEMA 25# WEIGHT GAIN OF FLUID IN 2 MONTHS DIABETES MELLITUS HYPERTENSION PERIPHERAL NEUROPATHY OA OF KNEES WEAKNESS SOMNOLENCE HYPOXEMIA -CHEST XRAY NEGATIVE FOR PNEUMONIA - STUDIES OF OVERNIGHT OXYGEN SHOW THAT SHE LIKELY HAS SLEEP APNEA AND WILL NEED CONTINUOUS OXYGEN WELL AN OUTPATIENT OVERNIGHT SLEEP STUDY WITH PROTOCOL FOR CPAP PLACEMENT AT OUTPATIENT SLEEP STUDY. EDEMA WITH 25# WEIGHT GAIN OF FLUID IN 2 MONTHS - STARTED IV LASIX AND PT HAD KIM IMPROVEMENT IN SYMPTOMS - DISCUSSED NEED TO CUT BACK ON SODIUM IN DIET - NEED TO TRY TO KEEP A STRICT 2-3 GRAM OR LESS SODIUM DIET WELL HER DIABETIC DIET. DIABETES MELLITUS - LEVEMIR AND REGULAR INSULIN - MONITOR ACCUCHECKS HYPERTENSION - MONITOR BLOOD PRESSURE RESUME HOME REGIMEN CHECK EKG AND ECHO PERIPHERAL NEUROPATHY - STARTED NEURONTIN 400MG BID OA OF KNEES - CHRONIC PAIN SYNDROME - CONTINUE WITH HYDROCODONE PRN FOR PAIN WEAKNESS - ONCE MEDICALLY STABLE, WILL NEED TO INITIATE PHYSICAL THERAPY - SHE WILL NEED TO GO TO THE [facility] ON DISCHARGE FOR STRENGTHENING SHE HAS BEEN SLOWLY DECLINING OVER THE PAST TWO MONTHS. SOMNOLENCE THE PLAN WAS FOR DISCHARGE ON 12/17/17 - I HAD EVERYTHING IN PLACE, AND APPARENTLY A PEER TO PEER WAS ATTEMPTED TO BE PERFORMED WITH A PROVIDER (WHO IS NOT A KNOWN PROVIDER IN THIS AREA), AND IT WAS DENIED PER MY CONVERSATION WITH ONE OF THE SPECIALIST AT HER INSURANCE TODAY. WE HAVE BEEN TRYING TO GET HER INSURANCE TO APPROVE [facility] FOR PHYSICAL AND OCCUPATIONAL THERAPY - WE HAVE BEEN HAVING A LOT OF TROUBLE GETTING THEM TO APPROVE THIS STAY WHICH SEEMS RATHER STRAIGHTFORWARD TO MYSELF AND ALL OF THE PHYSICAL THERAPY, OCCUPATIONAL THERAPY AND TRACK REPAIRER WHO HAVE BEEN CARING FOR PATIENTS FOR YEARS IN SUCH A SITUATION AND WE HAVE NOT HAD THIS KIND OF TROUBLE GETTING PATIENTS APPROVED FOR [facility] STAYS. Pending Labs Laboratory Tests 12/18/17 05:14: Glucometer 79 12/18/17 06:40: White Blood Count 6.6, Red Blood Count 4.20, Hemoglobin 11.2, Hematocrit 36, Mean Corpuscular Volume 86, Mean Corpuscular Hemoglobin 27, Mean Corpuscular Hemoglobin Concent 31, Red Cell Distribution Width 16.1, Platelet Count 244, Mean Platelet Volume 10.3, Sodium Level 142, Potassium Level 3.7, Chloride Level 103, Carbon Dioxide Level 28, Anion Gap 11, Blood Urea Nitrogen 17, Creatinine 0.91, Estimat Glomerular Filtration Rate 59, BUN/Creatinine Ratio 19 , Glucose Level 94, Calcium Level 9.4 12/18/17 08:14: Glucometer 100 Discharge Instructions to patient/family Please see electronic discharge instructions given to patient. Discharge Medications Reviewed and agree with Discharge Medication list on patient's Discharge Instruction sheet Clinical Quality Measures DVT/VTE Risk/Contraindication: Risk Factor Score Per Nursin RFS Level Per Nursing on Admit: 4+=Very High DEANGELO FOSTER MD Dec 17, 2017 08:56
[2017-12-17] MEDS ORDERED: FURO20TA4 PO (09:01)
[2017-12-17] MEDS ORDERED: APIX5TAB PO (09:01)
[2017-12-17] MEDS ORDERED: HYDR-3820 PO (09:01)
[2017-12-17] MEDS ORDERED: INSU200I4 SC (09:01)
--- NOTE | 2017-12-17 09:03 | Discharge Inst-Skilled Nursing ---
Discharge Inst-Skilled NF Patient Instructions Patient Problems: HYPOXEMIA EDEMA 25# WEIGHT GAIN OF FLUID IN 2 MONTHS DIABETES MELLITUS HYPERTENSION PERIPHERAL NEUROPATHY OA OF KNEES WEAKNESS SOMNOLENCE Goal: increased strength, improved function, discharge to home Consult/Follow Up/Orders Follow Up Appt.: 1 wk [facility] Skilled NF Admit to: [facility] [place] Certification (SNF) I certify that SNF services are required to be given on an inpatient basis because of the above named patient's need for halfway care on a continuing basis for the conditions(s) for which he/she was receiving inpatient hospital services prior to his/her transfer to the SNF. Half-Way Facility Order: Nursing Services, Business Process Associate-Evaluate & Treat, Physical Therapy-Evaluate & Treat Discharge Diet: Low Sodium Diet, ADA Diet Daily Activity as Tolerated: Yes New & Resume Previous Orders New & Resume Previous Orders oxygen continuously and humidified on at 2 liters nasal canula Deangelo Figueroa Dec 17, 2017 09:01 Medication List: Active Scripts Active Eliquis (Apixaban) 5 Mg Tablet 5 Mg PO BID Furosemide 20 Mg Tablet 20 Mg PO BID Hydrocodon-Acetaminophn 10-325 (Hydrocodone/Acetaminophen) 1 Each Tablet 1 Tab PO BID PRN Tresiba Flextouch U-200 (Insulin Degludec) 200 Unit/1 Ml Insuln.pen 15 Units SC 1200 Reported Omeprazole 20 Mg Capsule.dr 20 Mg PO DAILY Escitalopram Oxalate 20 Mg Tablet 20 Mg PO HS Potassium Chloride 10 Meq Tablet.er 10 Meq PO DAILY Gabapentin 100 Mg Capsule 300 Mg PO HS TAKES 3 (100MG) CAPSULES Gabapentin 100 Mg Capsule 100 Mg PO 0700,1530 Simvastatin 20 Mg Tablet 20 Mg PO HS Fish Oil 1,000 mg Capsule ([place] 3 Polyunsat Fatty Acids) 1,000 Mg Cap 1,000 Mg PO BID Colace (Docusate Sodium) 100 Mg Capsule 100 Mg PO DAILY Glipizide ER (Glipizide) 5 Mg Tab.er.24 5 Mg PO DAILY Carvedilol 25 Mg Tablet 25 Mg PO BID Amlodipine Besylate 10 Mg Tablet 10 Mg PO DAILY Lab results: Laboratory Tests Test 12/16/17 11:37 12/16/17 16:14 12/16/17 20:06 12/17/17 00:54 Range/Units Glucometer 164 H 165 H 126 H 73 70-110 MG/DL Test 12/17/17 05:30 12/17/17 05:35 Range/Units White Blood Count 5.9 4.3-11.0 10^3/uL Red Blood Count 4.14 L 4.35-5.85 10^6/uL Hemoglobin 11.1 L 11.5-16.0 G/DL Hematocrit 36 35-52 % Mean Corpuscular Volume 86 80-99 FL Mean Corpuscular Hemoglobin 27 25-34 PG Mean Corpuscular Hemoglobin Concent 31 L 32-36 G/DL Red Cell Distribution Width 16.3 H 10.0-14.5 % Platelet Count 231 130-400 10^3/uL Mean Platelet Volume 10.4 7.4-10.4 FL Sodium Level 142 135-145 MMOL/L Potassium Level 3.7 3.6-5.0 MMOL/L Chloride Level 103 98-107 MMOL/L Carbon Dioxide Level 28 21-32 MMOL/L Anion Gap 11 5-14 MMOL/L Blood Urea Nitrogen 18 7-18 MG/DL Creatinine 0.96 0.60-1.30 MG/DL Estimat Glomerular Filtration Rate 56 BUN/Creatinine Ratio 19 Glucose Level 107 H 70-105 MG/DL Calcium Level 9.3 8.5-10.1 MG/DL Glucometer 107 70-110 MG/DL My orders: Orders - DEANGELO FIGUEROA MD Bearing Maker Consult (12/16/17 09:34) Patient Visit (12/16/17 ) Exercise Therap, Ea 15 Min (12/16/17 ) Gait Training, Ea 15 Min (12/16/17 ) Cbc No Diff (12/17/17 06:00) Basic Metabolic Panel (12/17/17 06:00) Occupational Therapy Order (12/17/17 08:37) Attending Discharge Inpt/Inobs (12/17/17 08:57) DEANGELO FIGUEROA MD Dec 17, 2017 09:03
[2017-12-17] MEDS: inSUlin (REGULAR) HUMAN 1 UNIT/0.01 ML (CHARGE PER UNIT) SC SCH ×4 (09:37→21:29)
--- NOTE | 2017-12-17 10:23 | Physical Therapy Daily Note ---
PT Daily Note-Current Subjective Pt states she will be transferring to [facility] today for continued rehab. She hopes to return home with her daughter with independent mobility with a cane and O2 (new). Her daughter works during the day. Denies pain. Feeling better. Mental Status Patient Orientation: Person, Time, Situation Transfers Functional [place] Measure 0=Not Assessed/NA 4=Minimal Assistance 1=Total Assistance 5=Supervision or Setup 2=Maximal Assistance 6=Modified [place] 3=Moderate Assistance 7=Complete IndependenceIRFPAI Quality Coding Scale 6 Independent with activity with or without an assistive device 5 Patient requires set up or clean up by helper. Patient completes activity by themselves 4 Supervision or touching assist (CGA). [place] provide cues , steadying assist 3 The helper provides less than half the effort to complete the activity 2 The helper provides more than half the effort to complete the activity 1 Dependent. The helper does all the effort to complete an activity 7 Patient refused to complete or attempt activity 9 The patient did not perform the activity before the current illness or injury 88 Not attempted due to Medical conditions or safety concerns Transfers (B, C, W/C) (FIM): 4 Weight Bearing Right Lower Extremity: Right Full Weight Bearing Left Lower Extremity: Left Full Weight Bearing Gait Training Gait (FIM): 5 Distance: 150 x 2 Gait Level of Assist: 1 Gait Persons Needed: 1 Gait Assistive Device: FWW Amb with assist for O2 @ 2L x 150 ft, 2x. Maintained sats above 94% during walk. Rested from generalized fatigue. Exercises Standing: Mini squats Sit to stand indep without UE after 3 attempts with much effort. Instructed in mini squats for quad strengthening. Assessment Current Status: Good Progress Imo will benefit from continued PT/OT to regain indep mobility and ADLs PT Short Term Goals Short Term Goals Time Frame: Dec 16, 2017 Transfers (B,C,W/C) (FIM): 6 Gait (FIM): 6 Distance (FIM): 3=150 ft Gait Level of Assist: 6 Gait Assistive Device: FWW, Cane Single Point PT Critical Care Nurse Goals Critical Care Nurse Goals Transfers (B,C,W/C) (FIM): 6 Gait (FIM): 6 Distance: 300 PT Plan Problem List Problem List: Activity Tolerance, Safety, Gait Treatment/Plan Treatment Plan: Continue Plan of Care, Discontinue PT Treatment Plan: Education, Functional Activity Patricia, Functional Strength, Gait , Safety, Therapeutic Exercise Pt to continue PT until DC from acute care and to continue PT on skilled Via [facility]. Treatment Duration: Dec 16, 2017 Frequency: 5 times per week Estimated Hrs Per Day: .25 hour per day Patient and/or Family Agrees t: Yes Safety Risks/Education Patient Education: Gait Training, Transfer Techniques Teaching Recipient: Patient Discharge Recommendations Therapy D/C Recommendations: Long-Term (TCU/NH) Equpiment Recommendations-D/C: Front Wheeled Walker Time/GCodes Time In: 905 Time Out: 930 Total Billed Treatment Time: 25 Total Billed Treatment Visit, Gt x 2 G Codes Necessary: PREETI Quiroz PT Dec 17, 2017 10:23
--- NOTE | 2017-12-17 10:32 | Occupational Therapy Eval ---
OT Evaluation-General/PLF Medical Diagnosis Admission Date Dec 11, 2017 at 12:00 Medical Diagnosis: hypoxemia/fluid overload Onset Date: Dec 11, 2017 Therapy Diagnosis Therapy Diagnosis: decr self care, weakiness, decr act tolerance, decr self care Height/Weight Height (Feet): 5 Height (Inches): 68.00 Weight (Pounds): 213 Weight (Ounces): 12.8 Precautions Precautions/Isolations: Fall Prevention Safety Interventions: None Referral Physician: Carolina Referral Reason: Evaluation/Treatment Medical History Pertinent Medical History: Atrial Fib, Arthritis, DM, HTN, Neuropathy (feet), OA (knees), Renal Insufficiency, Smoking (remote) Additional Medical History Bilateral total hip replacements. Wrist surgery. Brain aneurysm surgery. Chronic constipation. Depression Current History Admitted with multiple week hx of SOB. 25# weight gain, peripheral edema. Weakness, somnolence. Developed a fib. New use of oxygen Reviewed History: Yes Social History Home: Multilevel (does not have to go upstairs) Current Living Status: Other Family (daughter) Entry Into Home: Stairs With Railing Steps Into Home: 2 ADL-Prior Level of Function ADL PLOF Comments Pt reported that she was previously able to manage her basic self care needs but it was getting more difficult. She helps around the house and drives rarely (she doesn't have a car now). She lives with her daughter who works at [employer] [facility] [employer] and is gone during the day. 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 Did not use oxygen at home and used a cane for mobility. DME/Equipment: Bath Bench (transfer tub bench), Tub/Shower OT Current Status Subjective Pt seen in room, up in recliner, agreeable to OT. Reported no pain but some soreness in abdomen Appearance Alert, cooperative Mental Status/Objective Patient Orientation: Person, Place, Time, Situation Attachments: Oxygen, Saline Lock, Telemetry Current Glasses/Contacts: Yes Dentures/Partials: Yes Hand Dominance: Right Upper Extremity ROM Grossly WFL except flexion contracture R little finger (also affecting extension of ring and middle fingers) from old injury Upper Extremity Sensation No numbness in UEs but in LEs Upper Extremity Strength Grossly 4/5 bilat Edema: Bilat LE edema ADL-Treatment ADL-Current She was able to get slipper socks off and on with difficulty and with becoming SOB. She got up from recliner with SBA and walked to bathroom with SBA, FWW, with pt education on how to manage oxygen tubing during functional mobility. Her normal walking device is a cane. Able to get on/off taller toilet with SBA, FWW and manage clothing/hygiene with SBA. Pt education on managing O2 tubing during toileting and grooming. Pt walked to sink to brush dentures with SBA, FWW , leaning against sink due to fatigue. Walked back to recliner, pt educ again on managing O2 tubing, especially with turning (for safety and preventing falls) . O2 was on at 2L nc throughout. O2 sat was 95% but heart rate was in 80s after activity. Pt did not have clothing here for other dressing. Functional [place] Measure 0=Not Assessed/NA 4=Minimal Assistance 1=Total Assistance 5=Supervision or Setup 2=Maximal Assistance 6=Modified [place] 3=Moderate Assistance 7=Complete IndependenceIRFPAI Quality Coding Scale 6 Independent with activity with or without an assistive device 5 Patient requires set up or clean up by helper. Patient completes activity by themselves 4 Supervision or touching assist (CGA). [place] provide cues , steadying assist 3 The helper provides less than half the effort to complete the activity 2 The helper provides more than half the effort to complete the activity 1 Dependent. The helper does all the effort to complete an activity 7 Patient refused to complete or attempt activity 9 The patient did not perform the activity before the current illness or injury 88 Not attempted due to Medical conditions or safety concerns Eating (FIM): 6 (Pt reported that she has no difficulty with opening packages and feeding herself) Grooming (FIM): 5 (SBA (supervision), FWW at sink) Toileting (FIM): 5 (SBA (supervision) for clothing management and hygiene. tall toilet, FWW) Toilet/Commode Transfer (FIM): 5 (SBA (supervision), on/off taller toilet, FWW) Other Treatments Pt education in managing oxygen tubing during ADLs. Pt educ in energy conservation techniques, necessity of taking recovery breaks to manage HR and O2 sats. Safety education Education OT Patient Education: Energy conservation, Modified ADL techniques, Purpose of tx/functional activities, Rehab process, Safety issues, Transfer techniques Teaching Recipient: Patient Teaching Methods: Demonstration, Discussion Response to Teaching: Verbalize Understanding, Return Demonstration, Reinforcement Needed OT Usp Goals Usp Goals Time Frame: Dec 24, 2017 Eating (FIM): 6 Grooming(FIM): 6 Bathing(FIM): 6 Upper Body Dressing(FIM): 6 Lower Body Dressing(FIM): 6 Toileting(FIM): 6 Toilet/Commode Transfer(FIM): 6 Tub Transfer(FIM): 6 Shower Transfer(FIM): 6 Pt will verbalize three techniques to do at home to conserve her energy Pt will be able to safely manage ADLs with new onset use of oxygen Additional Goals: 1-Demonstrate ADL Tasks, 2-Verbalize Understanding, 3- ImproveStrength/Patricia 1=Demonstrate adherence to instructed precautions during ADL tasks. 2=Patient will verbalize/demonstrate understanding of assistive devices/ modifications for ADL. 3=Patient will improve strength/tolerance for activity to enable patient to perform ADL's. OT Education/Plan Problem List/Assessment Assessment: Decreased Activ Tolerance, Decreased UE Strength, Dependent Transfers, Edema, Impaired Self-Care Skills Pt would benefit from skilled OT to increase her independence in basic self care , to increase her activity tolerance to be able to manage ADLs, to learn how to manage oxygen tubing during ADLs (new onset), to increase UE strength to help with ADLs and activity tolerance, to learn and practice energy conservation techniques, for edema management, for fall prevention, to be able to safely return to her home where she is alone during the day. Discharge Recommendations Plan/Recommendations: Continue POC Therapy D/C Recommendations: Care Home (TCU/NH) (OT) Treatment Plan/Plan of Care Treatment,Training & Education: Yes Patient would benefit from OT for education, treatment and training to promote independence in ADL's, mobility, safety and/or upper extremity function for ADL' s. Plan of Care: ADL Retraining, Functional Mobility, UE Funct Exercise/Act, UE Neuromus Re-Ed/Coord, OTHER (energy conservation education and practice) Treatment Duration: Dec 24, 2017 Frequency: 5 times per week Estimated Hrs Per Day: .5 hour per day (or as needed) Agreement: Yes Rehab Potential: Good Time/GCodes Start Time: 09:55 Stop Time: 10:20 Total Time Billed (hr/min): 20 Billed Treatment Time visit, 10 minutes evaluation moderate intensity, 15 minutes DL CECILTRISTON OT Dec 17, 2017 10:32
--- NOTE | 2017-12-17 10:37 | Progress Note-Cardiology ---
Cardiology SOAP Progress Note Subjective: Sitting up in a chair at the bedside. No new c/o Objective: I&O/Vital Signs 12/17/17 12/17/17 12/17/17 12/17/17 01:21 03:26 04:23 07:00 Temp 97.7 Pulse 64 66 73 Resp 16 B/P (MAP) 119/58 (78) Pulse Ox 91 90 O2 Delivery Nasal Cannula Nasal Cannula O2 Flow Rate 2.00 2.00 12/17/17 12/17/17 08:00 08:00 Temp 98.4 Pulse 67 Resp 16 B/P (MAP) 124/63 (83) Pulse Ox 97 97 O2 Delivery Nasal Cannula Nasal Cannula O2 Flow Rate 2.00 2.00 12/17/17 00:00 Intake Total 1210 ml Output Total 2425 ml Balance -1215 ml Weight (Pounds): 213 Weight (Ounces): 12.8 Weight (Calculated Kilograms): 96.411746 Constitutional: appears stated age, AAO x 3; No apparent distress; well- developed, well-nourished Respiratory: chest is bilaterally symmetric, lungs clear to auscultation Cardiovascular: irregularly irregular, S1 and S2 Gastrointestional: audible bowel sounds Extremities: no lower extremity edema bilateral Neurologic/Psychiatric: grossly intact Skin: No rash, No ulcerations Results/Procedures: Labs Laboratory Tests 12/16/17 16:14: Glucometer 165H 12/16/17 20:06: Glucometer 126H 12/17/17 00:54: Glucometer 73 12/17/17 05:30: White Blood Count 5.9, Red Blood Count 4.14L, Hemoglobin 11.1L, Hematocrit 36, Mean Corpuscular Volume 86, Mean Corpuscular Hemoglobin 27, Mean Corpuscular Hemoglobin Concent 31L, Red Cell Distribution Width 16.3H, Platelet Count 231, Mean Platelet Volume 10.4, Sodium Level 142, Potassium Level 3.7, Chloride Level 103, Carbon Dioxide Level 28, Anion Gap 11, Blood Urea Nitrogen 18, Creatinine 0.96, Estimat Glomerular Filtration Rate 56, BUN/Creatinine Ratio 19 , Glucose Level 107H, Calcium Level 9.3 12/17/17 05:35: Glucometer 107 A/P: Assessment: Shortness of breath likely multifactorial due to atrial fibrillation, diastolic dysfunction, and mod pulmonary hypertension of undetermined etiology Paroxysmal Atrial fibrillation - rate controlled Eliquis for stroke prophylaxis DM 2 - management per medical services Hypertension - controlled Hyperlipidemia, treated with statins Pulmonary hypertension, PA pressure 39 mmHg, and moderate to severe tricuspid regurgitation per echocardiogram of 12-12-[address] Kunz Plan: Continue current medication regimen Lasix changed to oral for discharge Plan to discharge today per medical services Advise out pt f/u with Dr. Kunz Physician Assessment Physician Assessment No cp or palp or syncope or shortness of breath at rest Wishes to go home Lungs: good bilat air entry Cor: irreg Ext: no c/c/e A&P * As documented in our note above that I updated (italics) and as noted below * I reviewed her records, interviewed her, examined her and discussed her CV issues with her and answered questions * Outpt cardiac f/u advised with BS Thao Dec 17, 2017 10:37 HARITHA ESPARZA MD FACP FAC CCDS Dec 17, 2017 12:00
[2017-12-17 12:00] VITALS: BP 135/60
[2017-12-17] MEDS: inSUlin DETERMIR 1 UNIT/0.01 ML (LEVEMIR) CHARGE PER UNIT SQ SCH (13:00)
[2017-12-17 16:05] VITALS: BP 121/58
[2017-12-17 20:35] VITALS: BP 115/56
[2017-12-17] MEDS: HYDROcodone/APAP 10 MG/325 MG (LORTAB) TAB PO PRN (22:12)
[2017-12-18 00:08] VITALS: BP 119/56
[2017-12-18 04:02] VITALS: BP 117/58
[2017-12-18] MEDS: inSUlin (REGULAR) HUMAN 1 UNIT/0.01 ML (CHARGE PER UNIT) SC SCH ×3 (05:24→16:22)
[2017-12-18 06:56] LABS: HEMOGLOBIN 11.2 G/DL (11.5-16.0); MEAN PLATELET VOLUME 10.3 FL (7.4-10.4); RED BLOOD COUNT 4.2 10^6/uL (4.35-5.85); RED CELL DISTRIBUTION WIDTH 16.1 % (10.0-14.5); WHITE BLOOD COUNT 6.6 10^3/uL (4.3-11.0)
[2017-12-18] MEDS: glipiZIDE XL 5 MG (GLUCOTROL XL) TAB PO SCH (07:02)
[2017-12-18] MEDS: KCL 10 MEQ TAB (MICRO K) PO SCH (07:02)
[2017-12-18] MEDS: GABAPENTIN 100 MG (NEURONTIN) CAP PO SCH ×2 (07:02→16:21)
[2017-12-18] MEDS: FUROSEMIDE 40 MG/4 ML INJ (LASIX) IVP SCH ×2 (07:02→16:22)
[2017-12-18] MEDS: PANTOPRAZOLE 20 MG TABLET (PROTONIX) PO SCH (07:02)
[2017-12-18 07:07] LABS: CALCIUM 9.4 MG/DL (8.5-10.1); CREATININE SERUM 0.91 MG/DL (0.60-1.30); POTASSIUM 3.7 MMOL/L (3.6-5.0)
[2017-12-18 08:00] VITALS: BP 133/67
[2017-12-18] MEDS: amLODIPine 10 MG (NORVASC) TAB PO SCH (08:09)
[2017-12-18] MEDS: FAMOTIDINE 20 MG (PEPCID) TABLET PO SCH (08:09)
[2017-12-18] MEDS: CARVEDILOL 12.5 MG (COREG) TABLET PO SCH (08:10)
[2017-12-18] MEDS: APIXABAN 5 MG (ELIQUIS) TABLET PO SCH (08:10)
[2017-12-18] MEDS: DOCUSATE SODIUM 100 MG (COLACE) CAP PO SCH (08:10)
--- NOTE | 2017-12-18 08:49 | Progress Note-Cardiology ---
Cardiology SOAP Progress Note Subjective: Sitting up in a chair at the bedside. She states she feels her breathing is better this morning than yesterday. No c/o CP, palpitations, syncope, or near syncope. No c/o LE edema. Objective: I&O/Vital Signs 12/18/17 12/18/17 12/18/17 12/18/17 00:08 01:00 04:02 07:00 Temp 98.7 97.8 Pulse 65 68 64 62 Resp 19 19 B/P (MAP) 119/56 (77) 117/58 (77) Pulse Ox 95 94 O2 Delivery Nasal Cannula Nasal Cannula O2 Flow Rate 2.00 2.00 12/18/17 00:00 Intake Total 1880 ml Output Total 2700 ml Balance -820 ml Weight (Pounds): 212 Weight (Ounces): 7.0 Weight (Calculated Kilograms): 96.605524 Constitutional: appears stated age, AAO x 3; No apparent distress; well- developed, well-nourished Respiratory: No accessory muscle use, No respiratory distress; chest is bilaterally symmetric, lungs clear to auscultation Cardiovascular: irregularly irregular, S1 and S2 Gastrointestional: audible bowel sounds Extremities: no lower extremity edema bilateral Neurologic/Psychiatric: grossly intact Skin: No rash, No ulcerations Results/Procedures: Labs Laboratory Tests 12/17/17 11:24: Glucometer 194H 12/17/17 16:07: Glucometer 123H 12/17/17 20:52: Glucometer 172H 12/18/17 05:14: Glucometer 79 12/18/17 06:40: White Blood Count 6.6, Red Blood Count 4.20L, Hemoglobin 11.2L, Hematocrit 36, Mean Corpuscular Volume 86, Mean Corpuscular Hemoglobin 27, Mean Corpuscular Hemoglobin Concent 31L, Red Cell Distribution Width 16.1H, Platelet Count 244, Mean Platelet Volume 10.3, Sodium Level 142, Potassium Level 3.7, Chloride Level 103, Carbon Dioxide Level 28, Anion Gap 11, Blood Urea Nitrogen 17, Creatinine 0.91, Estimat Glomerular Filtration Rate 59, BUN/Creatinine Ratio 19 , Glucose Level 94, Calcium Level 9.4 12/18/17 08:14: Glucometer 100 A/P: Assessment: Shortness of breath likely multifactorial due to atrial fibrillation, diastolic dysfunction, and mod pulmonary hypertension of undetermined etiology - improved Paroxysmal Atrial fibrillation - rate controlled Eliquis for stroke prophylaxis DM 2 - management per medical services Hypertension - controlled Hyperlipidemia, treated with statins Pulmonary hypertension, PA pressure 39 mmHg, and moderate to severe tricuspid regurgitation per echocardiogram of 10-6-[address] Kunz Plan: Continue current medication regimen Awaiting placement for discharge - per medical services will likely be today [facility] Dec 18, 2017 08:49
--- NOTE | 2017-12-18 09:00 | Cardiology Progress Note ---
Cardiology SOAP Progress Note Subjective: Feeling much better. Objective: I&O/Vital Signs 12/18/17 12/18/17 12/18/17 12/18/17 00:08 01:00 04:02 07:00 Temp 98.7 97.8 Pulse 65 68 64 62 Resp 19 19 B/P (MAP) 119/56 (77) 117/58 (77) Pulse Ox 95 94 O2 Delivery Nasal Cannula Nasal Cannula O2 Flow Rate 2.00 2.00 12/18/17 00:00 Intake Total 1880 ml Output Total 2700 ml Balance -820 ml Weight (Pounds): 212 Weight (Ounces): 7.0 Weight (Calculated Kilograms): 96.284634 Constitutional: appears stated age, AAO x 3; No apparent distress; well- developed, well-nourished Respiratory: No accessory muscle use, No respiratory distress; chest is bilaterally symmetric, lungs clear to auscultation Cardiovascular: irregularly irregular, S1 and S2 Gastrointestional: audible bowel sounds Extremities: no lower extremity edema bilateral Neurologic/Psychiatric: grossly intact Skin: No rash, No ulcerations Results/Procedures: Labs Laboratory Tests 12/17/17 11:24: Glucometer 194H 12/17/17 16:07: Glucometer 123H 12/17/17 20:52: Glucometer 172H 12/18/17 05:14: Glucometer 79 12/18/17 06:40: White Blood Count 6.6, Red Blood Count 4.20L, Hemoglobin 11.2L, Hematocrit 36, Mean Corpuscular Volume 86, Mean Corpuscular Hemoglobin 27, Mean Corpuscular Hemoglobin Concent 31L, Red Cell Distribution Width 16.1H, Platelet Count 244, Mean Platelet Volume 10.3, Sodium Level 142, Potassium Level 3.7, Chloride Level 103, Carbon Dioxide Level 28, Anion Gap 11, Blood Urea Nitrogen 17, Creatinine 0.91, Estimat Glomerular Filtration Rate 59, BUN/Creatinine Ratio 19 , Glucose Level 94, Calcium Level 9.4 12/18/17 08:14: Glucometer 100 A/P: Assessment/Dx: Shortness of breath, Diabetes, Hypertension, Atrial fibrillation, Hyperlipidemia Plan: Shortness of breath: Continue IV Lasix. On oxygen therapy. Echocardiogram showed normal LV function. Patient was in atrial fibrillation therefore diastolic function could not be assessed. Shortness of breath likely multifactorial due to atrial fibrillation, diastolic dysfunction, pulmonary hypertension and moderate to severe tricuspid regurgitation. Persistent Atrial fibrillation: Eliquis 5 mg twice daily. Continue beta kodi for rate control. Continue current medical therapy for diabetes. Hypertension: Continue amlodipine and carvedilol. Blood pressure is well controlled. Hyperlipidemia: Continue pravastatin. Pulmonary hypertension, PA pressure 39 mmHg., Continue to follow clinically. Moderate to severe tricuspid regurgitation, continue to follow clinically. Follow up in office in 2-3 weeks. Thank you for your consultation. Please call me if you have any questions. Mena Kunz MD, FACP, FACC, FSCAI, FHRS, CCDS Interventional Cardiology Cardiac Electrophysiology Vascular Medicine and Endovascular Interventions Agustina KUNZ MD Dec 18, 2017 9:00 am
--- NOTE | 2017-12-18 09:32 | Physical Therapy Daily Note ---
PT Daily Note-Current Subjective Pt. states she is feeling better, states she is not looking forward to going to the NH but knows she needs the rehab Pain Numeric Pain Scale: 0-No Pain Mental Status Patient Orientation: Normal For Age Attachments: Oxygen Transfers Functional [place] Measure 0=Not Assessed/NA 4=Minimal Assistance 1=Total Assistance 5=Supervision or Setup 2=Maximal Assistance 6=Modified [place] 3=Moderate Assistance 7=Complete IndependenceIRFPAI Quality Coding Scale 6 Independent with activity with or without an assistive device 5 Patient requires set up or clean up by helper. Patient completes activity by themselves 4 Supervision or touching assist (CGA). [place] provide cues , steadying assist 3 The helper provides less than half the effort to complete the activity 2 The helper provides more than half the effort to complete the activity 1 Dependent. The helper does all the effort to complete an activity 7 Patient refused to complete or attempt activity 9 The patient did not perform the activity before the current illness or injury 88 Not attempted due to Medical conditions or safety concerns in out bed and chair and toilet all SBA to Mod I Weight Bearing Right Lower Extremity: Right Full Weight Bearing Left Lower Extremity: Left Full Weight Bearing Gait Training Distance (FIM): 4=238-74 ft (75ft x 2) Gait Assistive Device: FWW CGA to SBA, some instruction for safe turns,near crossover at turns, narrow CARLITO Exercises Supine Ex: Ankle pumps, Quad Set, Heel Slides, Straight leg raise, Hip abd/add Supine Reps: 12 Seated Therapy Exercises: Ankle pumps, Sit to stand, Long arc quads, Hip flexion Seated Reps: 12 Assessment Current Status: Good Progress PT Short Term Goals Short Term Goals Time Frame: Dec 16, 2017 Gait (FIM): 6 Distance (FIM): 3=150 ft Gait Level of Assist: 6 Gait Assistive Device: FWW, Cane Single Point PT Rerecording Mixer Goals Rerecording Mixer Goals Transfers (B,C,W/C) (FIM): 6 Gait (FIM): 6 Distance: 300 PT Plan Treatment/Plan Treatment Plan: Continue Plan of Care Treatment Plan: Education, Functional Activity Patricia, Functional Strength, Gait , Safety, Therapeutic Exercise Treatment Duration: Dec 16, 2017 Frequency: 5 times per week Estimated Hrs Per Day: .25 hour per day Patient and/or Family Agrees t: Yes Safety Risks/Education Patient Education: Gait Training, Transfer Techniques, Correct Positioning, Disease Process, Safety Issues Teaching Recipient: Patient Teaching Methods: Demonstration, Discussion Response to Teaching: Verbalize Understanding, Return Demonstration, Reinforcement Needed Time/GCodes Time In: 900 Time Out: 930 Total Billed Treatment Time: 30 Total Billed Treatment 1,GT15m,EX15m G Codes Necessary: NADIR Calabrese BATTERY INSTALLER Dec 18, 2017 09:32
--- NOTE | 2017-12-18 11:18 | D/C HH Face to Face Order ---
D/C Face to Face Orders Instructions for Patient [facility] Eayun, Patient Instructions/FollowUp: 1WK FOLLOW UP WITH CRISTIAN WILLIAMSON Physician to follow Patient: CRISTIAN Discharge Diet for Home: ADA Diet, Low Sodium Diet Patient Data-Allergies,Ht & Wt Patient Allergies: Coded Allergies: NKANo Known Allergies (Verified Allergy, Unknown, 12/11/17) Height (Feet): 5 Height (Inches): 68.00 Weight (Pounds): 212 Weight (Ounces): 7.0 Home Health Need/Face to Face Date of Face to Face: Dec 18, 2017 Clinical Findings: Generalized weakness and fatigue, Muscle weakness, Shortness of breath, Unsteady gait I have seen Pt [id number]: Yes Discharged To: Home Diagnosis/Conditions: WEAKNESS EDEMA HYPERTENSION DIABETES PULMONARY ALON Patient is Homebound due to: [place] fall risk due to instabilty, Muscle weakness , Shortness of breath/distress Homebound Status Due to the above stated illness, injury or surgical procedure (medical condition or diagnosis) and associated clinical findings, the patient is homebound because of his/her inability to leave home except with aid of a supportive device and/or person AND leaving the home requires a considerable and taxing effort or is medically contraindicated. Pt req the following assistanc: Walker Home Health Nursing Orders Home Health Services Order: Nursing Services, Low Voltage Electrician-Evaluate & Treat, Physical Therapy-Evaluate & Treat Home Health Infusion Therapy Line Start Date: Dec 11, 2017 Line Start Time: 1315 Line Type: Midline Site Location: Arm-Upper Therapy Orders Therapy Orders: Physical Therapy, PT to assess for OT Therapy Specific Orders: Eval assistive deivces, Teach enviro modifications/ safety, Increase strength/endurance, Restore ROM Certify Stmt I certify that this patient is under my care and that I, a nurse practitioner or a physician; a talent acquisition assistant working with me, had a face to face encounter that - meets the physician face to face encounter requirements with this patient as dated. DEANGELO FOSTER MD Dec 18, 2017 11:18
--- NOTE | 2017-12-18 11:24 | Occupational Ther Daily Note ---
OT Current Status-Daily Note Subjective Pt seen in room, up in recliner, agreeable to OT. No pain mentioned. Appearance Alert, cooperative Mental Status/Objective Functional Nixon Measure 0=Not Assessed/NA 4=Minimal Assistance 1=Total Assistance 5=Supervision or Setup 2=Maximal Assistance 6=Modified Nixon 3=Moderate Assistance 7=Complete Nixon ADL-Treatment Pt with O2 2L/min nc throughout. New onset use of O2. She recalled to hold tubing in her hand while walking to bathroom but needed education on managing tubing in front of her on the way back to recliner, for safely. Pt toileted with SBA, using grab bar, and FWW, managing clothing and hygiene. Walked SBA, FWW to sink to wash hands, SBA, FWW for balance. Pt left up in recliner, legs elevated due to edema, all needs met. Education OT Patient Education: Progress toward Goal/Update tx plan, Purpose of tx/ functional activities, Safety issues, Transfer techniques Teaching Recipient: Patient Teaching Methods: Demonstration, Discussion Response to Teaching: Verbalize Understanding, Return Demonstration, Reinforcement Needed OT Short Term Goals Short Term Goals 1=Demonstrate adherence to instructed precautions during ADL tasks. 2=Patient will verbalize/demonstrate understanding of assistive devices/ modifications for ADL. 3=Patient will improve strength/tolerance for activity to enable patient to perform ADL's. OT Mcc Goals Mcc Goals Time Frame: Dec 24, 2017 Eating (FIM): 6 Grooming(FIM): 6 Bathing(FIM): 6 Upper Body Dressing(FIM): 6 Lower Body Dressing(FIM): 6 Toileting(FIM): 6 Toilet/Commode Transfer(FIM): 6 Tub Transfer(FIM): 6 Shower Transfer(FIM): 6 Pt will verbalize three techniques to do at home to conserve her energy Pt will be able to safely manage ADLs with new onset use of oxygen Additional Goals: 1-Demonstrate ADL Tasks, 2-Verbalize Understanding, 3- ImproveStrength/Patricia 1=Demonstrate adherence to instructed precautions during ADL tasks. 2=Patient will verbalize/demonstrate understanding of assistive devices/ modifications for ADL. 3=Patient will improve strength/tolerance for activity to enable patient to perform ADL's. OT Education/Plan Problem List/Assessment Pt would benefit from skilled OT to increase her independence in basic self care , to increase her activity tolerance to be able to manage ADLs, to learn how to manage oxygen tubing during ADLs (new onset), to increase UE strength to help with ADLs and activity tolerance, to learn and practice energy conservation techniques, for edema management, for fall prevention, to be able to safely return to her home where she is alone during the day. Discharge Recommendations Plan/Recommendations: Continue POC Treatment Plan/Plan of Care Patient would benefit from OT for education, treatment and training to promote independence in ADL's, mobility, safety and/or upper extremity function for ADL' s. Plan of Care: ADL Retraining, Functional Mobility, UE Funct Exercise/Act, UE Neuromus Re-Ed/Coord, OTHER (energy conservation education and practice) Treatment Duration: Dec 24, 2017 Frequency: 5 times per week Estimated Hrs Per Day: .5 hour per day (or as needed) Agreement: Yes Rehab Potential: Good Time/GCodes Start Time: 10:50 Stop Time: 11:05 Total Time Billed (hr/min): 15 Billed Treatment Time visit, 15 minutes ADL TRISTON JACOB OT Dec 18, 2017 11:23
[2017-12-18 12:00] VITALS: BP 132/65
[2017-12-18] MEDS: inSUlin DETERMIR 1 UNIT/0.01 ML (LEVEMIR) CHARGE PER UNIT SQ SCH (12:00)
[2017-12-18 15:31] VITALS: BP 117/56
--- NOTE | 2017-12-22 15:57 | Physician Query Clarification ---
PQ-Further Specificity Admission/Discharge Admission Date: Dec 11, 2017 at 12:00 Discharge Date: Dec 18, 2017 at 17:05 The medical record reflects the following clinical scenario: History/Risk Factors: Atrial fibrillation, Pulmonary hypertension, Sleep apnea Clinical Findings: Hypoxemia, BNP 415.9 Treatment:IV Lasix, oxygen therapy 3 L. Question: Can you further specify the Etiology of the admitting hypoxemia after study per the clinical indicators above? Please document below. 1. Acute congestive heart failure due to diastolic dysfunction. 2. Paroxysmal atrial fibrillation. 3. Pulmonary hypertension. 4. Severe tricuspid regurgitation. 5. Sleep apnea. 6. Other, with explanation of the clinical findings. 7. Clinically undetermined, no explanation for the clinical findings. PHYSICIAN RESPONSE Can you specify per above: 1 In responding to this query, please exercise your independent professional judgment. The purpose of this communication is to more accurately reflect the complexity of your patients condition. The fact that a question is asked does not imply that any particular answer is desired or expected. Thank you for your timely response to this clarification. Requestors name: [ ] Phone # [ ] THIS PHYSICIAN QUERY FORM IS A PERMANENT PART OF THE MEDICAL RECORD KRANTHI JACKMAN Dec 22, 2017 15:57 DEANGELO FOSTER MD Dec 23, 2017 08:26
== END 2017-12-18 17:05 | disposition home health service (06) | DRG 291 ==
LOC: 4TH 12:00 → EDPENDDISTM 12-18 13:00 → EDPENDDISDT 12-18 13:00
PROVIDERS: ADMIT Family Medicine; ATTEND Family Medicine
DX: I11.0 Hypertensive heart disease with heart failure (principal); I50.31 Acute diastolic (congestive) heart failure; I48.1 Persistent atrial fibrillation; I27.20 Pulmonary hypertension, unspecified; I07.1 Rheumatic tricuspid insufficiency; G47.30 Sleep apnea, unspecified; E11.40 Type 2 diabetes mellitus with diabetic neuropathy, unspecified; Z23 Encounter for immunization; E78.5 Hyperlipidemia, unspecified; N28.9 Disorder of kidney and ureter, unspecified; F41.9 Anxiety disorder, unspecified; F32.9 Major depressive disorder, single episode, unspecified; K59.09 Other constipation; M17.0 Bilateral primary osteoarthritis of knee; G89.4 Chronic pain syndrome; Z79.4 Long term (current) use of insulin; Z96.643 Presence of artificial hip joint, bilateral; Z90.710 Acquired absence of both cervix and uterus; Z87.891 Personal history of nicotine dependence
CPT/HCPCS: 36415; 71045; 71046; 76937; 80048; 80053; 81000; 82962; 83880; 85025; 85027; 90686; 93005; 93306; 94760; 94761; 94762

== ENCOUNTER 2018-07-06 05:49 | Outpatient (CLI) | payer MEDICARE, OTHER ==
[~2018-07-06] VITALS: Ht 172.7 cm; Wt 96.4 kg
[~2018-07-06 05:49] MED LIST changes: -AMLO10TA6 PO; +AMLO10TA7 PO; +APIX5TAB PO; +FURO20TA4 PO; +HYDR-3820 PO; +INSU200I4 SC; +OMEP20CA12 PO
[2018-07-06] MEDS ORDERED: FURO20TA4 PO (11:48)
== END 2018-07-06 13:06 | disposition home or self-care (01) ==
LOC: PREOP 05:49
PROVIDERS: ATTEND Surgery
DX: Z01.818 Encounter for other preprocedural examination (principal)

== ENCOUNTER 2018-07-13 08:25 | Day surgery (SDC) | payer MEDICARE, OTHER ==
[~2018-07-13] VITALS: Ht 172.7 cm; Wt 96.4 kg
[2018-07-13] MEDS ORDERED: LACTATED RINGERS 1,000 ML IV ONE (08:30)
--- OUTSIDE RECORDS SUMMARY | 2018-07-13 08:31 | XMS REPORT | Continuity of Care Document ---
Author Organization Unknown Address Unknown Allergies Active Description Code Type Severity Reaction Onset Reported/Identified Relationship to Patient Clinical Status Yes NKANo Known Allergies NKA Miscellaneous Allergy Unknown N/A 12/11/2017 Medications There is no data. Problems Date [...] 02/15/2014 Ot 250.00 02/15/2014 Ot 401.9 02/15/2014 TJBRENDAN CATHODIC PROTECTION TECHNICIAN Ot 250.00 02/15/2014 TJ BRENDAN Berrios CATHODIC PROTECTION TECHNICIAN Ot 311 02/15/2014 TJ BRENDAN Berrios CATHODIC PROTECTION TECHNICIAN Ot 401.9 02/15/2014 TJBRENDAN CATHODIC PROTECTION TECHNICIAN Ot 586 02/15/2014 TJBRENDAN CATHODIC PROTECTION TECHNICIAN Ot V58.69 02/15/2014 CRISTIAN MCKNIGHT, DEANGELO A Ot 250.00 02/15/2014 CRISTIAN MCKNIGHT, DEANGELO A Ot 272.4 02/15/2014 CRISTIAN MCKNIGHT, DEANGELO A Ot 401.9 02/15/2014 CRISTIAN MCKNIGHT, DEANGELO A Ot V58.69 02/15/2014 Ot V58.81 02/15/2014 CRISTIAN MCKNIGHT, DEANGELO A Ot 250.00 02/15/2014 CRISTIAN MCKNIGHT, DEANGELO A Ot 298.9 02/15/2014 CRISTIAN MCKNIGHT, DEANGELO A Ot 401.9 02/15/2014 CRISTIAN MCKNIGHT, DEANGELO A Ot 780.79 02/15/2014 MILI SPENCERHANCHELSEA Berrios CATHODIC PROTECTION TECHNICIAN Ot 250.00 02/15/2014 MILI SPENCERHANIE Agustina CATHODIC PROTECTION TECHNICIAN Ot 272.4 02/15/2014 MILI SPENCERHANCHELSEA Berrios CATHODIC PROTECTION TECHNICIAN Ot 401.9 02/15/2014 BRENDAN SPENCER CATHODIC PROTECTION TECHNICIAN Ot V58.69 02/15/2014 BREDNAN SPENCER CATHODIC PROTECTION TECHNICIAN Ot V58.81 02/15/2014 CRISTIAN MCKNIGHT, DEANGELO A Ot 250.02 02/15/2014 CRISTIAN MCKNIGHT, DEANGELO A Ot 250.00 02/15/2014 CRISTIAN MCKNIGHT, DEANGELO A Ot 298.9 02/15/2014 CRISTIAN MCKNIGHT, DEANGELO A Ot 401.9 02/15/2014 CRISTIAN MCKNIGHT, DEANGELO A Ot 780.79 02/20/2014 BRENDAN SPENCER CATHODIC PROTECTION TECHNICIAN Ot V58.81 FIT/ADJ VASCULAR CATHETER 03/07/2014 CRISTIAN MCKNIGHT, DEANGELO A Ot 250.00 03/07/2014 CRISTIAN MCKNIGHT, DEANGELO Krishnamurthy Ot 298.9 03/07/2014 CRISTIAN MCKNIGHT, DEANGELO A Ot 401.9 03/07/2014 CRISTIAN MCKNIGHT, DEANGELO A Ot 780.79 03/07/2014 BRENDAN SPENCER CATHODIC PROTECTION TECHNICIAN Ot 250.00 03/07/2014 BRENDAN SPENCER CATHODIC PROTECTION TECHNICIAN Ot 272.4 03/07/2014 BRENDAN SPENCER CATHODIC PROTECTION TECHNICIAN Ot 401.9 03/07/2014 BRENDAN SPENCER CATHODIC PROTECTION TECHNICIAN Ot V58.69 06/16/2014 CHADWICK MCKNIGHT, LISSA Ot 211.3 BENIGN NEOPLASM LG BOWEL 06/16/2014 CHADWICK MCKNIGHT, LISSA Ot 455.0 INT HEMORRHOID W/O COMPL 06/16/2014 LISSA GENAO MD Ot 455.3 EXT HEMORRHOID W/O COMPL 06/16/2014 LISSA GENAO MD Ot 562.10 DIVERTICULOSIS COLON (W/O MENT OF HEMORR 06/16/2014 LISSA GENAO MD Ot V76.51 SCREEN MAL NEOP-COLON 06/28/2014 LISSA GENAO MD Ot V72.84 06/28/2014 LISSA GENAO MD Ot V72.84 07/04/2014 BRENDAN SPENCER CATHODIC PROTECTION TECHNICIAN Ot V58.81 08/14/2014 BRENDAN SPENCER CATHODIC PROTECTION TECHNICIAN Ot V58.81 FIT/ADJ VASCULAR CATHETER 09/05/2014 BRENDAN SPENCER CATHODIC PROTECTION TECHNICIAN Ot V58.81 09/05/2014 BRENDAN SPENCER CATHODIC PROTECTION TECHNICIAN Ot V58.81 09/05/2014 BRENDAN SPENCER CATHODIC PROTECTION TECHNICIAN Ot V58.81 09/06/2014 BRENDAN SPENCER CATHODIC PROTECTION TECHNICIAN Ot V58.81 09/11/2014 BRENDAN SPENCER CATHODIC PROTECTION TECHNICIAN Ot 250.00 09/11/2014 BRENDAN SPENCER CATHODIC PROTECTION TECHNICIAN Ot 401.9 09/11/2014 BRENDAN SPENCER CATHODIC PROTECTION TECHNICIAN Ot V58.69 09/11/2014 BRENDAN SPENCER CATHODIC PROTECTION TECHNICIAN Ot V72.62 09/21/2014 BRENDAN SPENCER CATHODIC PROTECTION TECHNICIAN Ot 250.00 09/21/2014 BRENDAN SPENCER CATHODIC PROTECTION TECHNICIAN Ot 401.9 09/21/2014 BRENDAN SPENCER CATHODIC PROTECTION TECHNICIAN Ot V58.69 09/21/2014 BRENDAN SPENCER CATHODIC PROTECTION TECHNICIAN Ot V72.62 10/17/2014 BRENDAN SPENCER CATHODIC PROTECTION TECHNICIAN Ot 250.00 10/17/2014 BRENDAN SPENCER CATHODIC PROTECTION TECHNICIAN Ot 401.9 10/17/2014 BRENDAN SPENCER CATHODIC PROTECTION TECHNICIAN Ot V58.69 10/17/2014 BRENDAN SPENCER CATHODIC PROTECTION TECHNICIAN Ot V72.62 12/04/2014 BRENDAN SPENCER CATHODIC PROTECTION TECHNICIAN Ot 250.00 DIAB JENI WO COMPL, TYPE II OR UNSPEC TY 12/04/2014 BRENDAN SPENCER CATHODIC PROTECTION TECHNICIAN Ot 401.9 HYPERTENSION NOS 12/04/2014 BRENDAN SPENCER CATHODIC PROTECTION TECHNICIAN Ot E11.9 TYPE 2 DIABETES MELLITUS WITHOUT COMPLIC 12/04/2014 BRENDAN SPENCER CATHODIC PROTECTION TECHNICIAN Ot I10 ESSENTIAL (PRIMARY) HYPERTENSION 12/04/2014 BRENDAN SPENCER CATHODIC PROTECTION TECHNICIAN Ot V58.69 OTH MED,LT,CURRENT USE 12/04/2014 BRENDAN SPENCERP Ot V72.62 LAB EXAM ORDERED PART OF A ROUTINE GE 12/04/2014 BRENDAN SPENCER CATHODIC PROTECTION TECHNICIAN Ot Z00.00 ENCNTR FOR GENERAL ADULT MEDICAL EXAM W/ 12/05/2014 BRENDAN SPENCER CATHODIC PROTECTION TECHNICIAN Ot 250.00 12/05/2014 BRENDAN SPENCER CATHODIC PROTECTION TECHNICIAN Ot 401.9 12/05/2014 BRENDAN SPENCER CATHODIC PROTECTION TECHNICIAN Ot V58.69 12/05/2014 BRENDAN SPENCER CATHODIC PROTECTION TECHNICIAN Ot V72.62 12/05/2014 BRENDAN SPENCER CATHODIC PROTECTION TECHNICIAN Ot 250.00 12/05/2014 BRENDAN SPENCER CATHODIC PROTECTION TECHNICIAN Ot 401.9 12/05/2014 BRENDAN SPENCER CATHODIC PROTECTION TECHNICIAN Ot V58.69 12/05/2014 BRENDAN SPENCER CATHODIC PROTECTION TECHNICIAN Ot V72.62 12/06/2014 BRENDAN SPENCER CATHODIC PROTECTION TECHNICIAN Ot 250.00 DIAB JENI WO COMPL, TYPE II OR UNSPEC TY 12/06/2014 BRENDAN SPENCER CATHODIC PROTECTION TECHNICIAN Ot 401.9 HYPERTENSION NOS 12/06/2014 BRENDAN SPENCERP Ot V58.69 OTH MED,LT,CURRENT USE 12/06/2014 BRENDAN SPENCER CATHODIC PROTECTION TECHNICIAN Ot V58.81 FIT/ADJ VASCULAR CATHETER 12/06/2014 BRENDAN SPENCER CATHODIC PROTECTION TECHNICIAN Ot V72.62 LAB EXAM ORDERED PART OF A ROUTINE GE 12/06/2014 TJ BRENDAN M CATHODIC PROTECTION TECHNICIAN Ot 250.00 12/06/2014 TJ BRENDAN Agustina CATHODIC PROTECTION TECHNICIAN Ot 401.9 12/06/2014 TJBRENDAN CATHODIC PROTECTION TECHNICIAN Ot V58.69 12/06/2014 TJ BRENDAN Agustina CATHODIC PROTECTION TECHNICIAN Ot V72.62 01/18/2015 TJ BRENDAN Agustina CATHODIC PROTECTION TECHNICIAN Ot 250.00 01/18/2015 TJ BRENDAN Agustina CATHODIC PROTECTION TECHNICIAN Ot 401.9 01/18/2015 TJ BRENDAN Berrios CATHODIC PROTECTION TECHNICIAN Ot V58.69 01/18/2015 TJ BRENDAN Agustina CATHODIC PROTECTION TECHNICIAN Ot V58.81 01/18/2015 TJ BRENDAN Agustina CATHODIC PROTECTION TECHNICIAN Ot V72.62 01/19/2015 TJ BRENDAN Berrios CATHODIC PROTECTION TECHNICIAN Ot 250.00 01/19/2015 TJ BRENDAN Agustina CATHODIC PROTECTION TECHNICIAN Ot 401.9 01/19/2015 BRENDAN SPENCER CATHODIC PROTECTION TECHNICIAN Ot V58.69 01/19/2015 TJ BRENDAN Agustina CATHODIC PROTECTION TECHNICIAN Ot V58.81 01/19/2015 TJ BRENDAN Agustina CATHODIC PROTECTION TECHNICIAN Ot V72.62 01/22/2015 MIKE SPENCERIE Agustina CATHODIC PROTECTION TECHNICIAN Ot 250.00 01/22/2015 TJ BRENDAN Agustina CATHODIC PROTECTION TECHNICIAN Ot 401.9 01/22/2015 TJ BRENDAN Berrios CATHODIC PROTECTION TECHNICIAN Ot V58.69 01/22/2015 TJ BRENDAN Agustina CATHODIC PROTECTION TECHNICIAN Ot V58.81 01/22/2015 BRENDAN SPENCER CATHODIC PROTECTION TECHNICIAN Ot V72.62 02/16/2015 BRENDAN SPENCER CATHODIC PROTECTION TECHNICIAN Ot E11.9 02/16/2015 BRENDAN SPENCER CATHODIC PROTECTION TECHNICIAN Ot I10 02/16/2015 BRENDAN SPENCER CATHODIC PROTECTION TECHNICIAN Ot Z01.812 02/16/2015 BRENDAN SPENCER CATHODIC PROTECTION TECHNICIAN Ot Z45.2 02/16/2015 BRENDAN SPENCER CATHODIC PROTECTION TECHNICIAN Ot Z79.899 03/07/2015 BRENDAN SPENCER CATHODIC PROTECTION TECHNICIAN Ot E11.9 03/07/2015 BRENDAN SPENCER CATHODIC PROTECTION TECHNICIAN Ot I10 03/07/2015 BRENDAN SPENCER CATHODIC PROTECTION TECHNICIAN Ot Z01.812 03/07/2015 BRENDAN SPENCER CATHODIC PROTECTION TECHNICIAN Ot Z45.2 03/07/2015 BRENDAN SPENCER CATHODIC PROTECTION TECHNICIAN Ot Z79.899 03/21/2015 BRENDAN SPENCER CATHODIC PROTECTION TECHNICIAN Ot E11.9 03/21/2015 BRENDAN SPENCER CATHODIC PROTECTION TECHNICIAN Ot I10 03/21/2015 BRENDAN SPENCER CATHODIC PROTECTION TECHNICIAN Ot Z01.812 03/21/2015 BRENDAN SPENCER CATHODIC PROTECTION TECHNICIAN Ot Z45.2 03/21/2015 BRENDAN SPENCER CATHODIC PROTECTION TECHNICIAN Ot Z79.899 04/18/2015 BRENDAN SPENCER CATHODIC PROTECTION TECHNICIAN Ot E11.9 TYPE 2 DIABETES MELLITUS WITHOUT COMPLIC 04/18/2015 BRENDAN SPENCER CATHODIC PROTECTION TECHNICIAN Ot I10 ESSENTIAL (PRIMARY) HYPERTENSION 04/18/2015 BRENDAN SPENCER CATHODIC PROTECTION TECHNICIAN Ot Z01.812 ENCOUNTER FOR PREPROCEDURAL LABORATORY E 04/18/2015 BRENDAN SPENCER CATHODIC PROTECTION TECHNICIAN Ot Z45.2 ENCOUNTER FOR ADJUSTMENT AND MANAGEMENT 04/18/2015 BRENDAN SPENCER CATHODIC PROTECTION TECHNICIAN Ot 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 04/30/2015 BRENDAN SPENCER CATHODIC PROTECTION TECHNICIAN Ot E11.9 04/30/2015 BRENDAN SPENCER CATHODIC PROTECTION TECHNICIAN Ot I10 04/30/2015 BRENDAN SPENCER CATHODIC PROTECTION TECHNICIAN Ot Z01.812 04/30/2015 BRENDAN SPENCER CATHODIC PROTECTION TECHNICIAN Ot Z45.2 04/30/2015 BRENDAN SPENCER CATHODIC PROTECTION TECHNICIAN Ot Z79.899 04/30/2015 BRENDAN SPENCER CATHODIC PROTECTION TECHNICIAN Ot E11.9 04/30/2015 BRENDAN SPENCER CATHODIC PROTECTION TECHNICIAN Ot I10 04/30/2015 BRENDAN SPENCER CATHODIC PROTECTION TECHNICIAN Ot Z01.812 04/30/2015 BRENDAN SPENCER CATHODIC PROTECTION TECHNICIAN Ot Z45.2 04/30/2015 BRENDAN SPENCER CATHODIC PROTECTION TECHNICIAN Ot Z79.899 04/30/2015 BRENDAN SPENCER CATHODIC PROTECTION TECHNICIAN Ot E11.9 04/30/2015 BRENDAN SPENCER CATHODIC PROTECTION TECHNICIAN Ot I10 04/30/2015 BRENDAN SPENCER CATHODIC PROTECTION TECHNICIAN Ot Z01.812 04/30/2015 BRENDAN SPENCER CATHODIC PROTECTION TECHNICIAN Ot Z45.2 04/30/2015 BRENDAN SPENCER CATHODIC PROTECTION TECHNICIAN Ot Z79.899 05/11/2015 MEGHNAVERONICA NIGHT WAREHOUSE SELECTOR Ot E11.9 05/11/2015 VERONICA COFFMAN NIGHT WAREHOUSE SELECTOR Ot Z00.00 06/21/2015 TJ BRENDAN M CATHODIC PROTECTION TECHNICIAN Ot E11.9 06/21/2015 BRENDAN SPENCER CATHODIC PROTECTION TECHNICIAN Ot I10 06/21/2015 BRENDAN SPENCER CATHODIC PROTECTION TECHNICIAN Ot Z01.812 06/21/2015 BRENDAN SPENCER CATHODIC PROTECTION TECHNICIAN Ot Z45.2 06/21/2015 BRENDAN SPENCER CATHODIC PROTECTION TECHNICIAN Ot Z79.899 06/21/2015 BRENDAN SPENCER CATHODIC PROTECTION TECHNICIAN Ot E11.9 06/21/2015 BRENDAN SPENCER CATHODIC PROTECTION TECHNICIAN Ot I10 06/21/2015 BRENDAN SPENCER CATHODIC PROTECTION TECHNICIAN Ot Z01.812 06/21/2015 BRENDAN SPENCER CATHODIC PROTECTION TECHNICIAN Ot Z45.2 06/21/2015 BRENDAN SPENCER CATHODIC PROTECTION TECHNICIAN Ot Z79.899 06/28/2015 BRENDAN SPENCER CATHODIC PROTECTION TECHNICIAN Ot E11.9 TYPE 2 DIABETES MELLITUS WITHOUT COMPLIC 06/28/2015 BRENDAN SPENCER CATHODIC PROTECTION TECHNICIAN Ot I10 ESSENTIAL (PRIMARY) HYPERTENSION 06/28/2015 BRENDAN SPENCER CATHODIC PROTECTION TECHNICIAN Ot Z01.812 ENCOUNTER FOR PREPROCEDURAL LABORATORY E 06/28/2015 BRENDAN SPENCER CATHODIC PROTECTION TECHNICIAN Ot Z45.2 ENCOUNTER FOR ADJUSTMENT AND MANAGEMENT 06/28/2015 BRENDAN SPENCER CATHODIC PROTECTION TECHNICIAN Ot 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 07/04/2015 CRISTIAN MCKNIGHT, DEANGELO Krishnamurthy Ot 250.02 DIAB JENI WO COMPL, TYPE II OR UNSPEC TY 07/04/2015 BRENDAN SPENCER CATHODIC PROTECTION TECHNICIAN Ot E11.9 TYPE 2 DIABETES MELLITUS WITHOUT COMPLIC 07/04/2015 BRENDAN SPENCER CATHODIC PROTECTION TECHNICIAN Ot I10 ESSENTIAL (PRIMARY) HYPERTENSION 07/04/2015 BRENDAN SPENCER CATHODIC PROTECTION TECHNICIAN Ot Z01.812 ENCOUNTER FOR PREPROCEDURAL LABORATORY E 07/04/2015 BRENDAN SPENCER CATHODIC PROTECTION TECHNICIAN Ot Z45.2 ENCOUNTER FOR ADJUSTMENT AND MANAGEMENT 07/04/2015 BRENDAN SPENCER CATHODIC PROTECTION TECHNICIAN Ot Z79.899 OTHER CUSTODIAL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 THERAPY 07/24/2015 BRENDAN SPENCER CATHODIC PROTECTION TECHNICIAN Ot E11.9 TYPE 2 DIABETES MELLITUS WITHOUT COMPLIC 07/24/2015 BRENDAN SPENCER CATHODIC PROTECTION TECHNICIAN Ot I10 ESSENTIAL (PRIMARY) HYPERTENSION 07/24/2015 BRENDAN SPENCER CATHODIC PROTECTION TECHNICIAN Ot Z01.812 ENCOUNTER FOR PREPROCEDURAL LABORATORY E 07/24/2015 BRENDAN SPENCER CATHODIC PROTECTION TECHNICIAN Ot Z45.2 ENCOUNTER FOR ADJUSTMENT AND MANAGEMENT 07/24/2015 BRENDAN SPENCER CATHODIC PROTECTION TECHNICIAN Ot Z79.899 OTHER CUSTODIAL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 THERAPY 07/29/2015 BRENDAN SPENCER CATHODIC PROTECTION TECHNICIAN Ot E11.9 TYPE 2 DIABETES MELLITUS WITHOUT COMPLIC 07/29/2015 BRENDAN SPENCER CATHODIC PROTECTION TECHNICIAN Ot I10 ESSENTIAL (PRIMARY) HYPERTENSION 07/29/2015 BRENDAN SPENCER CATHODIC PROTECTION TECHNICIAN Ot Z01.812 ENCOUNTER FOR PREPROCEDURAL LABORATORY E 07/29/2015 BRENDAN SPENCER CATHODIC PROTECTION TECHNICIAN Ot Z45.2 ENCOUNTER FOR ADJUSTMENT AND MANAGEMENT 07/29/2015 BRENDAN SPENCER CATHODIC PROTECTION TECHNICIAN Ot Z79.899 OTHER CUSTODIAL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 THERAPY 08/13/2015 BRENDAN SPENCER CATHODIC PROTECTION TECHNICIAN Ot E11.65 TYPE 2 DIABETES MELLITUS WITH HYPERGLYCE 08/28/2015 BRENDAN SPENCER CATHODIC PROTECTION TECHNICIAN Ot E11.65 TYPE 2 DIABETES MELLITUS WITH HYPERGLYCE 08/28/2015 BRENDAN SPENCER CATHODIC PROTECTION TECHNICIAN Ot I12.9 HYPERTENSIVE CHRONIC KIDNEY DISEASE W ST 08/28/2015 BRENDAN SPENCER CATHODIC PROTECTION TECHNICIAN Ot N18.3 CHRONIC KIDNEY DISEASE, STAGE 3 (MODERAT 09/06/2015 BRENDAN SPENCER CATHODIC PROTECTION TECHNICIAN Ot E11.65 TYPE 2 DIABETES MELLITUS WITH HYPERGLYCE 09/06/2015 BRENDAN SPENCER CATHODIC PROTECTION TECHNICIAN Ot I12.9 HYPERTENSIVE CHRONIC KIDNEY DISEASE W ST 09/06/2015 BRENDAN SPENCER CATHODIC PROTECTION TECHNICIAN Ot N18.3 CHRONIC KIDNEY DISEASE, STAGE 3 (MODERAT 09/24/2015 BRENDAN SPENCER CATHODIC PROTECTION TECHNICIAN Ot E11.9 TYPE 2 DIABETES MELLITUS WITHOUT COMPLIC 09/24/2015 BRENDAN SPENCER CATHODIC PROTECTION TECHNICIAN Ot I10 ESSENTIAL (PRIMARY) HYPERTENSION 09/24/2015 BRENDAN SPENCER CATHODIC PROTECTION TECHNICIAN Ot Z01.812 ENCOUNTER FOR PREPROCEDURAL LABORATORY E 09/24/2015 BRENDAN SPENCER CATHODIC PROTECTION TECHNICIAN Ot Z45.2 ENCOUNTER FOR ADJUSTMENT AND MANAGEMENT 09/24/2015 BRENDAN SPENCER CATHODIC PROTECTION TECHNICIAN Ot 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 09/24/2015 BRENDAN SPENCER CATHODIC PROTECTION TECHNICIAN Ot E11.9 TYPE 2 DIABETES MELLITUS WITHOUT COMPLIC 09/24/2015 BRENDAN SPENCER CATHODIC PROTECTION TECHNICIAN Ot I10 ESSENTIAL (PRIMARY) HYPERTENSION 09/24/2015 BRENDAN SPENCER CATHODIC PROTECTION TECHNICIAN Ot Z01.812 ENCOUNTER FOR PREPROCEDURAL LABORATORY E 09/24/2015 BRENDAN SPENCER CATHODIC PROTECTION TECHNICIAN Ot Z45.2 ENCOUNTER FOR ADJUSTMENT AND MANAGEMENT 09/24/2015 BRENDAN SPENCER CATHODIC PROTECTION TECHNICIAN Ot Z79.899 OTHER CUSTODIAL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 THERAPY 10/19/2015 BRENDAN SPENCER CATHODIC PROTECTION TECHNICIAN Ot E11.9 TYPE 2 DIABETES MELLITUS WITHOUT COMPLIC 10/19/2015 BRENDAN SPENCER CATHODIC PROTECTION TECHNICIAN Ot I10 ESSENTIAL (PRIMARY) HYPERTENSION 10/19/2015 BRENDAN SPENCER CATHODIC PROTECTION TECHNICIAN Ot Z01.812 ENCOUNTER FOR PREPROCEDURAL LABORATORY E 10/19/2015 BRENDAN SPENCER CATHODIC PROTECTION TECHNICIAN Ot Z45.2 ENCOUNTER FOR ADJUSTMENT AND MANAGEMENT 10/19/2015 BRENDAN SPENCER CATHODIC PROTECTION TECHNICIAN Ot 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 10/31/2015 BRENDAN SPENCER CATHODIC PROTECTION TECHNICIAN Ot E11.9 TYPE 2 DIABETES MELLITUS WITHOUT COMPLIC 10/31/2015 BRENDAN SPENCER CATHODIC PROTECTION TECHNICIAN Ot I10 ESSENTIAL (PRIMARY) HYPERTENSION 10/31/2015 BRENDAN SPENCER CATHODIC PROTECTION TECHNICIAN Ot Z01.812 ENCOUNTER FOR PREPROCEDURAL LABORATORY E 10/31/2015 BRENDAN SPENCER CATHODIC PROTECTION TECHNICIAN Ot Z45.2 ENCOUNTER FOR ADJUSTMENT AND MANAGEMENT 10/31/2015 BRENDAN SPENCER CATHODIC PROTECTION TECHNICIAN Ot Z79.899 OTHER CUSTODIAL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 THERAPY 11/19/2015 BRENDAN SPENCER CATHODIC PROTECTION TECHNICIAN Ot E11.65 TYPE 2 DIABETES MELLITUS WITH HYPERGLYCE 11/19/2015 BRENDAN SPENCER CATHODIC PROTECTION TECHNICIAN Ot I12.9 HYPERTENSIVE CHRONIC KIDNEY DISEASE W ST 11/19/2015 BRENDAN SPENCER CATHODIC PROTECTION TECHNICIAN Ot N18.3 CHRONIC KIDNEY DISEASE, STAGE 3 (MODERAT 11/19/2015 BRENDAN SPENCER CATHODIC PROTECTION TECHNICIAN Ot E11.9 TYPE 2 DIABETES MELLITUS WITHOUT COMPLIC 11/19/2015 BRENDAN SPENCER M CATHODIC PROTECTION TECHNICIAN Ot I10 ESSENTIAL (PRIMARY) HYPERTENSION 11/19/2015 TJBRENDAN CATHODIC PROTECTION TECHNICIAN Ot Z01.812 ENCOUNTER FOR PREPROCEDURAL LABORATORY E 11/19/2015 TJBRENDAN CATHODIC PROTECTION TECHNICIAN Ot Z45.2 ENCOUNTER FOR ADJUSTMENT AND MANAGEMENT 11/19/2015 TJBRENDAN CATHODIC PROTECTION TECHNICIAN Ot Z79.899 OTHER CUSTODIAL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 THERAPY 12/10/2015 TJ BRENDAN Berrios CATHODIC PROTECTION TECHNICIAN Ot E11.9 TYPE 2 DIABETES MELLITUS WITHOUT COMPLIC 12/10/2015 TJBRENDAN CATHODIC PROTECTION TECHNICIAN Ot I10 ESSENTIAL (PRIMARY) HYPERTENSION 12/10/2015 TJBRENDAN CATHODIC PROTECTION TECHNICIAN Ot Z01.812 ENCOUNTER FOR PREPROCEDURAL LABORATORY E 12/10/2015 TJ BRENDAN Berrios CATHODIC PROTECTION TECHNICIAN Ot Z45.2 ENCOUNTER FOR ADJUSTMENT AND MANAGEMENT 12/10/2015 TJ BRENDAN Berrios CATHODIC PROTECTION TECHNICIAN Ot Z79.899 OTHER CUSTODIAL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 THERAPY 12/13/2015 Ot 250.02 DIAB [...] 401.9 HYPERTENSION NOS 12/13/2015 Ot 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.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 12/13/2015 Ot 285.9 ANEMIA NOS 12/13/2015 Ot [...] Ot 401.9 HYPERTENSION NOS 12/13/2015 BRENDAN SPENCER CATHODIC PROTECTION TECHNICIAN Ot 250.00 DIAB JENI WO COMPL, TYPE II OR UNSPEC TY 12/13/2015 BRENDAN SPENCER CATHODIC PROTECTION TECHNICIAN Ot 311 DEPRESSIVE DISORDER NEC 12/13/2015 BRENDAN SPENCER CATHODIC PROTECTION TECHNICIAN Ot 401.9 HYPERTENSION NOS 12/13/2015 BRENDAN SPENCER CATHODIC PROTECTION TECHNICIAN Ot 586 RENAL FAILURE NOS 12/13/2015 BRENDAN SPENCER CATHODIC PROTECTION TECHNICIAN Ot V58.69 OTH MED,LT,CURRENT USE 12/13/2015 DEANGELO [...] FOSTER MD Ot 298.9 PSYCHOSIS NOS 12/13/2015 CRISTIAN MCKNIGHT, EDANGELO Krishnamurthy Ot 401.9 HYPERTENSION NOS 12/13/2015 CRISTIAN MCKNIGHT, DEANGELO Krishnamurthy Ot 780.79 OTH MALAISE FATIGUE 12/13/2015 BRENDAN SPENCER CATHODIC PROTECTION TECHNICIAN Ot 250.00 DIAB JENI WO COMPL, TYPE II OR UNSPEC TY 12/13/2015 BRENDAN SPENCER CATHODIC PROTECTION TECHNICIAN Ot 272.4 HYPERLIPIDEMIA NEC/NOS 12/13/2015 BRENDAN SPENCER CATHODIC PROTECTION TECHNICIAN Ot 401.9 HYPERTENSION NOS 12/13/2015 BRENDAN SPENCER CATHODIC PROTECTION TECHNICIAN Ot V58.69 OTH MED,LT,CURRENT USE 12/13/2015 CRISTIAN MCKNIGHT, DEANGELO Krishnamurthy Ot 250.02 DIAB JENI WO COMPL, TYPE II OR UNSPEC TY 12/13/2015 CHADWICK MCKNIGHT, LISSA Ot V72.84 EXAM PRE-OPERATIVE NOS 12/13/2015 VERONICA COFFMAN NIGHT WAREHOUSE SELECTOR Ot E11.9 TYPE 2 DIABETES MELLITUS WITHOUT COMPLIC 12/13/2015 VERONICA COFFMAN NIGHT WAREHOUSE SELECTOR Ot Z00.00 ENCNTR FOR GENERAL ADULT MEDICAL EXAM W/ 12/13/2015 BRENDAN SPENCER CATHODIC PROTECTION TECHNICIAN Ot E11.9 TYPE 2 DIABETES MELLITUS WITHOUT COMPLIC 12/13/2015 BRENDAN SPENCER CATHODIC PROTECTION TECHNICIAN Ot I10 ESSENTIAL (PRIMARY) HYPERTENSION 12/13/2015 BRENDAN SPENCER CATHODIC PROTECTION TECHNICIAN Ot Z01.812 ENCOUNTER FOR PREPROCEDURAL LABORATORY E 12/13/2015 BRENDAN SPENCERP Ot Z45.2 ENCOUNTER FOR ADJUSTMENT AND MANAGEMENT 12/13/2015 BRENDAN SPENCER CATHODIC PROTECTION TECHNICIAN Ot 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 12/13/2015 BRENDAN SPENCER CATHODIC PROTECTION TECHNICIAN Ot E11.65 TYPE 2 DIABETES MELLITUS WITH HYPERGLYCE 12/13/2015 BRENDAN SPENCER CATHODIC PROTECTION TECHNICIAN Ot I12.9 HYPERTENSIVE CHRONIC KIDNEY DISEASE W ST 12/13/2015 BRENDAN SPENCER CATHODIC PROTECTION TECHNICIAN Ot N18.3 CHRONIC KIDNEY DISEASE, STAGE 3 (MODERAT 12/14/2015 BRENDAN SPENCER CATHODIC PROTECTION TECHNICIAN Ot E04.1 NONTOXIC SINGLE THYROID NODULE 12/14/2015 BRENDAN SPENCER CATHODIC PROTECTION TECHNICIAN Ot E04.1 NONTOXIC SINGLE THYROID NODULE 12/23/2015 BRENDAN SPENCER CATHODIC PROTECTION TECHNICIAN Ot E11.9 TYPE 2 DIABETES MELLITUS WITHOUT COMPLIC 12/23/2015 BRENDAN SPENCER CATHODIC PROTECTION TECHNICIAN Ot I10 ESSENTIAL (PRIMARY) HYPERTENSION 12/23/2015 BRENDAN SPENCER CATHODIC PROTECTION TECHNICIAN Ot Z01.812 ENCOUNTER FOR PREPROCEDURAL LABORATORY E 12/23/2015 BRENDAN SPENCER CATHODIC PROTECTION TECHNICIAN Ot Z45.2 ENCOUNTER FOR ADJUSTMENT AND MANAGEMENT 12/23/2015 BRENDAN SPENCER CATHODIC PROTECTION TECHNICIAN Ot 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 12/26/2015 BRENDAN SPENCER CATHODIC PROTECTION TECHNICIAN Ot E04.1 NONTOXIC SINGLE THYROID NODULE 12/27/2015 LISSA GENAO MD Ot R13.10 DYSPHAGIA, UNSPECIFIED 12/27/2015 LISSA GENAO MD Ot Z01.818 ENCOUNTER FOR OTHER PREPROCEDURAL EXAMIN 12/27/2015 LISSA GENAO MD Ot R13.10 DYSPHAGIA, UNSPECIFIED 12/27/2015 TARAH GENAO MDKI Ot Z01.818 ENCOUNTER FOR OTHER PREPROCEDURAL EXAMIN 12/28/2015 TARAH GENAO MDKI Ot K21.0 GASTRO-ESOPHAGEAL REFLUX DISEASE WITH ES 12/28/2015 TARAH GENAO MDKI Ot K22.2 ESOPHAGEAL OBSTRUCTION 12/28/2015 TARAH GENAO MDKI Ot K29.70 GASTRITIS, UNSPECIFIED, WITHOUT BLEEDING 12/28/2015 LISSA GENAO MD Ot K44.9 DIAPHRAGMATIC HERNIA WITHOUT OBSTRUCTION 12/31/2015 TARAH GENAO MDKI Ot K21.0 GASTRO-ESOPHAGEAL REFLUX DISEASE WITH ES 12/31/2015 DUKE GENAO MDAAKI Ot K22.2 ESOPHAGEAL OBSTRUCTION 12/31/2015 DUKE GENAO MDAAKI Ot K29.70 GASTRITIS, UNSPECIFIED, WITHOUT BLEEDING 12/31/2015 DUKE GENAO MDAAKI Ot K44.9 DIAPHRAGMATIC HERNIA WITHOUT OBSTRUCTION 12/31/2015 ATRAH GENAO MDKI Ot K21.0 GASTRO-ESOPHAGEAL REFLUX DISEASE WITH ES 12/31/2015 TARAH GENAO MDKI Ot K22.2 ESOPHAGEAL OBSTRUCTION 12/31/2015 TARAH GEANO MDKI Ot K29.70 GASTRITIS, UNSPECIFIED, WITHOUT BLEEDING 12/31/2015 LISSA GENAO MD Ot K44.9 DIAPHRAGMATIC HERNIA WITHOUT OBSTRUCTION 02/07/2016 BRENDAN SPENCER CATHODIC PROTECTION TECHNICIAN Ot E11.9 TYPE 2 DIABETES MELLITUS WITHOUT COMPLIC 02/07/2016 BRENDAN SPENCER CATHODIC PROTECTION TECHNICIAN Ot I10 ESSENTIAL (PRIMARY) HYPERTENSION 02/07/2016 BRENDAN SPENCER CATHODIC PROTECTION TECHNICIAN Ot Z01.812 ENCOUNTER FOR PREPROCEDURAL LABORATORY E 02/07/2016 BRENDAN SPENCER CATHODIC PROTECTION TECHNICIAN Ot Z45.2 ENCOUNTER FOR ADJUSTMENT AND MANAGEMENT 02/07/2016 BRENDAN SPENCER CATHODIC PROTECTION TECHNICIAN Ot 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 02/07/2016 BRENDAN SPENCER CATHODIC PROTECTION TECHNICIAN Ot E11.9 TYPE 2 DIABETES MELLITUS WITHOUT COMPLIC 02/07/2016 BRENDAN SPENCER CATHODIC PROTECTION TECHNICIAN Ot I10 ESSENTIAL (PRIMARY) HYPERTENSION 02/07/2016 BRENDAN SPENCER CATHODIC PROTECTION TECHNICIAN Ot Z01.812 ENCOUNTER FOR PREPROCEDURAL LABORATORY E 02/07/2016 BRENDAN SPENCER CATHODIC PROTECTION TECHNICIAN Ot Z45.2 ENCOUNTER FOR ADJUSTMENT AND MANAGEMENT 02/07/2016 BRENDAN SPENCER CATHODIC PROTECTION TECHNICIAN Ot 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 03/18/2016 BRENDAN SPENCER CATHODIC PROTECTION TECHNICIAN Ot E11.9 TYPE 2 DIABETES MELLITUS WITHOUT COMPLIC 03/18/2016 BRENDAN SPENCER CATHODIC PROTECTION TECHNICIAN Ot I10 ESSENTIAL (PRIMARY) HYPERTENSION 03/18/2016 BRENDAN SPENCER CATHODIC PROTECTION TECHNICIAN Ot Z01.812 ENCOUNTER FOR PREPROCEDURAL LABORATORY E 03/18/2016 BRENDAN SPENCER CATHODIC PROTECTION TECHNICIAN Ot Z45.2 ENCOUNTER FOR ADJUSTMENT AND MANAGEMENT 03/18/2016 BRENDAN SPENCER CATHODIC PROTECTION TECHNICIAN Ot Z79.899 OTHER CUSTODIAL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 THERAPY 03/27/2016 BRENDAN SPENCER CATHODIC PROTECTION TECHNICIAN Ot E11.9 TYPE 2 DIABETES MELLITUS WITHOUT COMPLIC 03/27/2016 BRENDAN SPENCER CATHODIC PROTECTION TECHNICIAN Ot I10 ESSENTIAL (PRIMARY) HYPERTENSION 03/27/2016 BRENDAN SPENCER CATHODIC PROTECTION TECHNICIAN Ot Z45.2 ENCOUNTER FOR ADJUSTMENT AND MANAGEMENT 03/27/2016 BRENDAN SPENCER CATHODIC PROTECTION TECHNICIAN Ot Z79.899 OTHER CUSTODIAL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 THERAPY 04/17/2016 BRENDAN SPENCER CATHODIC PROTECTION TECHNICIAN Ot E11.9 TYPE 2 DIABETES MELLITUS WITHOUT COMPLIC 04/17/2016 BRENDAN SPENCER CATHODIC PROTECTION TECHNICIAN Ot I10 ESSENTIAL (PRIMARY) HYPERTENSION 04/17/2016 BRENDAN SPENCER CATHODIC PROTECTION TECHNICIAN Ot Z45.2 ENCOUNTER FOR ADJUSTMENT AND MANAGEMENT 04/17/2016 BRENDAN SPENCER CATHODIC PROTECTION TECHNICIAN Ot 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 05/02/2016 DEANGELO FOSTER MD Ot 250.02 DIAB JENI WO COMPL, TYPE II OR UNSPEC TY 05/07/2016 BRENDAN SPENCER CATHODIC PROTECTION TECHNICIAN Ot E11.9 TYPE 2 DIABETES MELLITUS WITHOUT COMPLIC 05/07/2016 BRENDAN SPENCER CATHODIC PROTECTION TECHNICIAN Ot I10 ESSENTIAL (PRIMARY) HYPERTENSION 05/07/2016 BRENDAN SPENCER CATHODIC PROTECTION TECHNICIAN Ot Z45.2 ENCOUNTER FOR ADJUSTMENT AND MANAGEMENT 05/07/2016 BRENDAN SPENCER CATHODIC PROTECTION TECHNICIAN Ot Z79.899 OTHER CUSTODIAL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 THERAPY 05/08/2016 BRENDAN SPENCERP Ot E11.9 TYPE 2 DIABETES MELLITUS WITHOUT COMPLIC 05/08/2016 BRENDAN SPENCERP Ot I10 ESSENTIAL (PRIMARY) HYPERTENSION 05/08/2016 BRENDAN SPENCERP Ot Z45.2 ENCOUNTER FOR ADJUSTMENT AND MANAGEMENT 05/08/2016 BRENDAN SPENCER CATHODIC PROTECTION TECHNICIAN Ot 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 06/09/2016 BRENDAN SPENCERP Ot E11.9 TYPE 2 DIABETES MELLITUS WITHOUT COMPLIC 06/09/2016 BRENDAN SPENCER CATHODIC PROTECTION TECHNICIAN Ot I10 ESSENTIAL (PRIMARY) HYPERTENSION 06/09/2016 BRENDAN SPENCERP Ot Z45.2 ENCOUNTER FOR ADJUSTMENT AND MANAGEMENT 06/09/2016 BRENDAN SPENCERP Ot 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 07/14/2016 BRENDAN SPENCER CATHODIC PROTECTION TECHNICIAN Ot E11.9 TYPE 2 DIABETES MELLITUS WITHOUT COMPLIC 07/14/2016 BRENDAN SPENCER CATHODIC PROTECTION TECHNICIAN Ot I10 ESSENTIAL (PRIMARY) HYPERTENSION 07/14/2016 BRENDAN SPENCER CATHODIC PROTECTION TECHNICIAN Ot Z45.2 ENCOUNTER FOR ADJUSTMENT AND MANAGEMENT 07/14/2016 BRENDAN SPENCER CATHODIC PROTECTION TECHNICIAN Ot 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 07/24/2016 BRENDAN SPENCER CATHODIC PROTECTION TECHNICIAN Ot E11.9 TYPE 2 DIABETES MELLITUS WITHOUT COMPLIC 07/24/2016 BRENDAN SPENCER CATHODIC PROTECTION TECHNICIAN Ot I10 ESSENTIAL (PRIMARY) HYPERTENSION 07/24/2016 SPENCER, BRENDAN M CATHODIC PROTECTION TECHNICIAN Ot Z45.2 ENCOUNTER FOR ADJUSTMENT AND MANAGEMENT 07/24/2016 BRENDAN SPENCER CATHODIC PROTECTION TECHNICIAN Ot 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 07/25/2016 BRENDAN SPENCER CATHODIC PROTECTION TECHNICIAN Ot E11.9 TYPE 2 DIABETES MELLITUS WITHOUT COMPLIC 07/25/2016 BRENDAN SPENCER CATHODIC PROTECTION TECHNICIAN Ot I10 ESSENTIAL (PRIMARY) HYPERTENSION 07/25/2016 BRENDAN SPENCER CATHODIC PROTECTION TECHNICIAN Ot Z45.2 ENCOUNTER FOR ADJUSTMENT AND MANAGEMENT 07/25/2016 BRENDAN SPENCER CATHODIC PROTECTION TECHNICIAN Ot Z79.899 OTHER CUSTODIAL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 THERAPY 08/20/2016 BRENDAN SPENCER CATHODIC PROTECTION TECHNICIAN Ot E11.9 TYPE 2 DIABETES MELLITUS WITHOUT COMPLIC 08/20/2016 BRENDAN SPENCER CATHODIC PROTECTION TECHNICIAN Ot I10 ESSENTIAL (PRIMARY) HYPERTENSION 08/20/2016 BRENDAN SPENCER CATHODIC PROTECTION TECHNICIAN Ot Z45.2 ENCOUNTER FOR ADJUSTMENT AND MANAGEMENT 08/20/2016 BRENDAN SPENCER CATHODIC PROTECTION TECHNICIAN Ot Z79.899 OTHER CUSTODIAL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 THERAPY 09/02/2016 BRENDAN SPNECER CATHODIC PROTECTION TECHNICIAN Ot E11.9 TYPE 2 DIABETES MELLITUS WITHOUT COMPLIC 09/02/2016 BRENDAN SPENCER CATHODIC PROTECTION TECHNICIAN Ot I10 ESSENTIAL (PRIMARY) HYPERTENSION 09/02/2016 BRENDAN SPENCER CATHODIC PROTECTION TECHNICIAN Ot Z45.2 ENCOUNTER FOR ADJUSTMENT AND MANAGEMENT 09/02/2016 BRENDAN SPENCER CATHODIC PROTECTION TECHNICIAN Ot Z79.899 OTHER CUSTODIAL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 THERAPY 09/02/2016 BRENDAN SPENCER CATHODIC PROTECTION TECHNICIAN Ot E11.9 TYPE 2 DIABETES MELLITUS WITHOUT COMPLIC 09/02/2016 BRENDAN SPENCER CATHODIC PROTECTION TECHNICIAN Ot I10 ESSENTIAL (PRIMARY) HYPERTENSION 09/02/2016 BRENDAN SPENCER CATHODIC PROTECTION TECHNICIAN Ot Z45.2 ENCOUNTER FOR ADJUSTMENT AND MANAGEMENT 09/02/2016 BRENDAN SPENCER CATHODIC PROTECTION TECHNICIAN Ot 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 09/07/2016 BRENDAN SPENCER CATHODIC PROTECTION TECHNICIAN Ot E11.9 TYPE 2 DIABETES MELLITUS WITHOUT COMPLIC 09/07/2016 BRENDAN SPENCER CATHODIC PROTECTION TECHNICIAN Ot I10 ESSENTIAL (PRIMARY) HYPERTENSION 09/07/2016 BRENDAN SPENCER CATHODIC PROTECTION TECHNICIAN Ot Z45.2 ENCOUNTER FOR ADJUSTMENT AND MANAGEMENT 09/07/2016 BRENDAN SPENCERP Ot Z79.899 OTHER CUSTODIAL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 THERAPY 09/11/2016 JEFFREY VELASQUEZ MD [...] OF ARTIFICIAL HIP JOINT, BILATE 09/13/2016 BRENDAN SPENCERP Ot E11.9 TYPE 2 DIABETES MELLITUS WITHOUT COMPLIC 09/13/2016 BRENDAN SPENCERP Ot I10 ESSENTIAL (PRIMARY) HYPERTENSION 09/13/2016 BRENDAN SPENCERP Ot Z45.2 ENCOUNTER FOR ADJUSTMENT AND MANAGEMENT 09/13/2016 BRENDAN SPENCERP Ot Z79.899 OTHER CUSTODIAL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 THERAPY 10/06/2016 Ot 285.9 ANEMIA [...] Ot 401.9 HYPERTENSION NOS 10/06/2016 BRENDAN SPENCER CATHODIC PROTECTION TECHNICIAN Ot 250.00 DIAB JENI WO COMPL, TYPE II OR UNSPEC TY 10/06/2016 BRENDAN SPENCER CATHODIC PROTECTION TECHNICIAN Ot 311 DEPRESSIVE DISORDER NEC 10/06/2016 BRENDAN SPENCER CATHODIC PROTECTION TECHNICIAN Ot 401.9 HYPERTENSION NOS 10/06/2016 BRENDAN SPENCER CATHODIC PROTECTION TECHNICIAN Ot 586 RENAL FAILURE NOS 10/06/2016 BRENDAN SPENCER CATHODIC PROTECTION TECHNICIAN Ot V58.69 OTH MED,LT,CURRENT USE 10/06/2016 DEANGELO [...] II OR UNSPEC TY 10/06/2016 DEANGELO FOSTER MD, Ot 298.9 PSYCHOSIS NOS 10/06/2016 DEANGELO FOSTER MD Ot 401.9 HYPERTENSION NOS 10/06/2016 DEANGELO FOSTER MD Ot 780.79 OTH MALAISE FATIGUE 10/06/2016 BRENDAN SPENCER CATHODIC PROTECTION TECHNICIAN Ot 250.00 DIAB JENI WO COMPL, TYPE II OR UNSPEC TY 10/06/2016 BRENDAN SPENCER CATHODIC PROTECTION TECHNICIAN Ot 272.4 HYPERLIPIDEMIA NEC/NOS 10/06/2016 BRENDAN SPENCER CATHODIC PROTECTION TECHNICIAN Ot 401.9 HYPERTENSION NOS 10/06/2016 BRENDAN SPENCER CATHODIC PROTECTION TECHNICIAN Ot V58.69 OTH MED,LT,CURRENT USE 10/06/2016 DEANGELO FOSTER MD Ot 250.02 DIAB JENI WO COMPL, TYPE II OR UNSPEC TY 10/06/2016 CHADWICK MCKNIGHT, LISSA Ot V72.84 EXAM PRE-OPERATIVE NOS 10/06/2016 VERONICA COFFMAN NIGHT WAREHOUSE SELECTOR Ot E11.9 TYPE 2 DIABETES MELLITUS WITHOUT COMPLIC 10/06/2016 VERONICA COFFMAN NIGHT WAREHOUSE SELECTOR Ot Z00.00 ENCNTR FOR GENERAL ADULT MEDICAL EXAM W/ 10/06/2016 BRENDAN SPENCER CATHODIC PROTECTION TECHNICIAN Ot E11.65 TYPE 2 DIABETES MELLITUS WITH HYPERGLYCE 10/06/2016 BRENDAN SPENCER CATHODIC PROTECTION TECHNICIAN Ot I12.9 HYPERTENSIVE CHRONIC KIDNEY DISEASE W ST 10/06/2016 BRENDAN SPENCER CATHODIC PROTECTION TECHNICIAN Ot N18.3 CHRONIC KIDNEY DISEASE, STAGE 3 (MODERAT 10/06/2016 BRENDAN SPENCER CATHODIC PROTECTION TECHNICIAN Ot E04.1 NONTOXIC SINGLE THYROID NODULE 10/06/2016 BRENDAN SPENCER CATHODIC PROTECTION TECHNICIAN Ot E11.9 TYPE 2 DIABETES MELLITUS WITHOUT COMPLIC 10/06/2016 BRENDAN SPENCER CATHODIC PROTECTION TECHNICIAN Ot I10 ESSENTIAL (PRIMARY) HYPERTENSION 10/06/2016 BRENDAN SPENCER CATHODIC PROTECTION TECHNICIAN Ot Z45.2 ENCOUNTER FOR ADJUSTMENT AND MANAGEMENT 10/06/2016 BRENDAN SPENCER CATHODIC PROTECTION TECHNICIAN Ot Z79.899 OTHER CUSTODIAL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 THERAPY 10/14/2016 BRENDAN SPENCER CATHODIC PROTECTION TECHNICIAN Ot E11.9 TYPE 2 DIABETES MELLITUS WITHOUT COMPLIC 10/14/2016 BRENDAN SPENCER CATHODIC PROTECTION TECHNICIAN Ot I10 ESSENTIAL (PRIMARY) HYPERTENSION 10/14/2016 BRENDAN SPENCER CATHODIC PROTECTION TECHNICIAN Ot Z45.2 ENCOUNTER FOR ADJUSTMENT AND MANAGEMENT 10/14/2016 TJMIKECHELSEA Berrios CATHODIC PROTECTION TECHNICIAN Ot Z79.899 OTHER CUSTODIAL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 THERAPY 10/14/2016 TJ BRENDAN M CATHODIC PROTECTION TECHNICIAN Ot E11.9 TYPE 2 DIABETES MELLITUS WITHOUT COMPLIC 10/14/2016 BRENDAN SPENCER CATHODIC PROTECTION TECHNICIAN Ot I10 ESSENTIAL (PRIMARY) HYPERTENSION 10/14/2016 BRENDAN SPENCER CATHODIC PROTECTION TECHNICIAN Ot Z45.2 ENCOUNTER FOR ADJUSTMENT AND MANAGEMENT 10/14/2016 BRENDAN SPENCER CATHODIC PROTECTION TECHNICIAN Ot 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 10/14/2016 TJ BRENDAN M CATHODIC PROTECTION TECHNICIAN Ot E11.9 TYPE 2 DIABETES MELLITUS WITHOUT COMPLIC 10/14/2016 BRENDAN SPENCER CATHODIC PROTECTION TECHNICIAN Ot I10 ESSENTIAL (PRIMARY) HYPERTENSION 10/14/2016 BRENDAN SPENCER CATHODIC PROTECTION TECHNICIAN Ot Z45.2 ENCOUNTER FOR ADJUSTMENT AND MANAGEMENT 10/14/2016 BRENDAN SPENCER CATHODIC PROTECTION TECHNICIAN Ot 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 10/17/2016 VERONICA COFFMAN NIGHT WAREHOUSE SELECTOR Ot M79.604 PAIN IN RIGHT LEG 10/17/2016 VERONICA COFFMAN NIGHT WAREHOUSE SELECTOR Ot R22.41 LOCALIZED SWELLING, MASS AND LUMP, RIGHT 11/12/2016 BRENDAN SPENCER CATHODIC PROTECTION TECHNICIAN Ot E11.9 TYPE 2 DIABETES MELLITUS WITHOUT COMPLIC 11/12/2016 BRENDAN SPENCER CATHODIC PROTECTION TECHNICIAN Ot I10 ESSENTIAL (PRIMARY) HYPERTENSION 11/12/2016 BRENDAN SPENCER CATHODIC PROTECTION TECHNICIAN Ot Z45.2 ENCOUNTER FOR ADJUSTMENT AND MANAGEMENT 11/12/2016 BRENDAN SPENCER CATHODIC PROTECTION TECHNICIAN Ot 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 11/21/2016 BRENDAN SPECNER CATHODIC PROTECTION TECHNICIAN Ot E11.9 TYPE 2 DIABETES MELLITUS WITHOUT COMPLIC 11/21/2016 BRENDAN SPENCER CATHODIC PROTECTION TECHNICIAN Ot I10 ESSENTIAL (PRIMARY) HYPERTENSION 11/21/2016 BRENDAN SPENCER CATHODIC PROTECTION TECHNICIAN Ot Z45.2 ENCOUNTER FOR ADJUSTMENT AND MANAGEMENT 11/21/2016 BRENDAN SPENCER CATHODIC PROTECTION TECHNICIAN Ot Z79.899 OTHER CUSTODIAL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 THERAPY 11/25/2016 BRENDAN SPENCER CATHODIC PROTECTION TECHNICIAN Ot E11.9 TYPE 2 DIABETES MELLITUS WITHOUT COMPLIC 11/25/2016 BRENDAN SPENCER CATHODIC PROTECTION TECHNICIAN Ot I10 ESSENTIAL (PRIMARY) HYPERTENSION 11/25/2016 BRENDAN SPENCER CATHODIC PROTECTION TECHNICIAN Ot Z45.2 ENCOUNTER FOR ADJUSTMENT AND MANAGEMENT 11/25/2016 BRENDAN SPENCER CATHODIC PROTECTION TECHNICIAN Ot Z79.899 OTHER CUSTODIAL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 THERAPY 12/05/2016 BRENDAN SPENCER CATHODIC PROTECTION TECHNICIAN Ot E11.9 TYPE 2 DIABETES MELLITUS WITHOUT COMPLIC 12/05/2016 BRENDAN SPENCER CATHODIC PROTECTION TECHNICIAN Ot I10 ESSENTIAL (PRIMARY) HYPERTENSION 12/05/2016 TJBRENDAN CATHODIC PROTECTION TECHNICIAN Ot Z45.2 ENCOUNTER FOR ADJUSTMENT AND MANAGEMENT 12/05/2016 BRENDAN SPENCER CATHODIC PROTECTION TECHNICIAN Ot 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 12/06/2016 BRENDAN SPENCER CATHODIC PROTECTION TECHNICIAN Ot E11.9 TYPE 2 DIABETES MELLITUS WITHOUT COMPLIC 12/06/2016 BRENDAN SPENCER CATHODIC PROTECTION TECHNICIAN Ot I10 ESSENTIAL (PRIMARY) HYPERTENSION 12/06/2016 SPENCERBRENDAN CATHODIC PROTECTION TECHNICIAN Ot Z45.2 ENCOUNTER FOR ADJUSTMENT AND MANAGEMENT 12/06/2016 SPENCERBRENDAN CATHODIC PROTECTION TECHNICIAN Ot Z79.899 OTHER CUSTODIAL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 THERAPY 12/15/2016 BRENDAN SPENCER CATHODIC PROTECTION TECHNICIAN Ot E11.9 TYPE 2 DIABETES MELLITUS WITHOUT COMPLIC 12/15/2016 TJBRENDAN CATHODIC PROTECTION TECHNICIAN Ot I10 ESSENTIAL (PRIMARY) HYPERTENSION 12/15/2016 TJBRENDAN CATHODIC PROTECTION TECHNICIAN Ot Z45.2 ENCOUNTER FOR ADJUSTMENT AND MANAGEMENT 12/15/2016 TJBRENDAN CATHODIC PROTECTION TECHNICIAN Ot Z79.899 OTHER CUSTODIAL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 THERAPY 06/02/2017 NAVID RAND MD [...] INFUSION ANANYA 06/02/2017 NAVID RAND MD Ot Z79.4 SUPERVISOR WHEEL SHOP (CURRENT) USE OF INSULIN 06/02/2017 NAVID RAND MD Ot Z79.899 OTHER CUSTODIAL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 THERAPY 06/02/2017 NAVID RAND MD Ot Z87.891 PERSONAL HISTORY OF NICOTINE DEPENDENCE 06/02/2017 NAVID RAND MD Ot 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 JOINT, BILATE 06/03/2017 NAVID RAND MD Ot E11.9 TYPE 2 DIABETES MELLITUS WITHOUT COMPLIC 06/03/2017 NAVID RAND MD Ot F32.9 MAJOR DEPRESSIVE DISORDER, SINGLE EPISOD 06/03/2017 NAVID RAND MD Ot I10 ESSENTIAL (PRIMARY) HYPERTENSION 06/03/2017 NAVID RAND MD Ot T82.514A BREAKDOWN (MECHANICAL) OF INFUSION ANANYA 06/03/2017 NAVID RAND MD Ot Z79.4 SUPERVISOR WHEEL SHOP (CURRENT) USE OF INSULIN 06/03/2017 NAVID RAND MD Ot 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 06/03/2017 NAVID RAND MD Ot Z87.891 PERSONAL HISTORY OF NICOTINE DEPENDENCE 06/03/2017 NAVID RAND MD Ot 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 JOINT, BILATE 06/04/2017 NAVID RAND MD Ot E11.9 TYPE 2 DIABETES MELLITUS WITHOUT COMPLIC 06/04/2017 NAVID RAND MD Ot F32.9 MAJOR DEPRESSIVE DISORDER, SINGLE EPISOD 06/04/2017 NAVID RAND MD Ot I10 ESSENTIAL (PRIMARY) HYPERTENSION 06/04/2017 NAVID RAND MD M Ot T82.514A BREAKDOWN (MECHANICAL) OF INFUSION ANANYA 06/04/2017 NAVID RAND MD Ot Z79.4 SUPERVISOR WHEEL SHOP (CURRENT) USE OF INSULIN 06/04/2017 NAVID RAND MD M Ot 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 06/04/2017 NAVID RAND MD M Ot Z87.891 PERSONAL HISTORY OF NICOTINE DEPENDENCE 06/04/2017 NAVID RAND MD M Ot 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 JOINT, BILATE 06/04/2017 NAVID RAND MD Ot E11.9 TYPE 2 DIABETES MELLITUS WITHOUT COMPLIC 06/04/2017 NAVID RAND MD Ot F32.9 MAJOR DEPRESSIVE DISORDER, SINGLE EPISOD 06/04/2017 NAVID RAND MD Ot I10 ESSENTIAL (PRIMARY) HYPERTENSION 06/04/2017 KEYONA MCKNIGHT, NAVID Berrios Ot T82.514A BREAKDOWN (MECHANICAL) OF INFUSION ANANYA 06/04/2017 NAVID RAND MD Ot Z79.4 CUSTODIAL (CURRENT) USE OF INSULIN 06/04/2017 NAVID RAND MD Ot Z79.899 OTHER CUSTODIAL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 THERAPY 06/04/2017 NAVID RAND MD Ot Z87.891 PERSONAL HISTORY OF NICOTINE DEPENDENCE 06/04/2017 KEYONA MCKNIGHT, NAVID Berrios Ot 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 JOINT, BILATE 12/11/2017 Ot V58.81 FIT/ADJ VASCULAR CATHETER 12/11/2017 CRISTIAN MCKNIGHT, DEANGELO Krishnamurthy Ot 250.02 DIAB JENI WO COMPL, TYPE II OR UNSPEC TY 12/11/2017 BRENDAN SPENCER CATHODIC PROTECTION TECHNICIAN Ot E11.9 TYPE 2 DIABETES MELLITUS WITHOUT COMPLIC 12/11/2017 BRENDAN SPENCER CATHODIC PROTECTION TECHNICIAN Ot I10 ESSENTIAL (PRIMARY) HYPERTENSION 12/11/2017 BRENDAN SPENCER CATHODIC PROTECTION TECHNICIAN Ot Z45.2 ENCOUNTER FOR ADJUSTMENT AND MANAGEMENT 12/11/2017 BRENDAN SPENCER CATHODIC PROTECTION TECHNICIAN Ot Z79.899 OTHER CUSTODIAL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 THERAPY 12/15/2017 DEANGELO FOSTER MD Ot E11.40 TYPE 2 DIABETES MELLITUS WITH DIABETIC N 12/15/2017 DEANGELO FOSTER MD Ot E78.5 HYPERLIPIDEMIA, UNSPECIFIED 12/15/2017 DEANGELO FOSTER MD Ot F32.9 MAJOR DEPRESSIVE DISORDER, SINGLE EPISOD 12/15/2017 DEANGELO FOSTER MD Ot G89.4 CHRONIC PAIN SYNDROME 12/15/2017 DEANGELO FOSTER MD Ot I07.1 RHEUMATIC TRICUSPID INSUFFICIENCY 12/15/2017 DEANGELO FOSTER MD Ot I10 ESSENTIAL (PRIMARY) HYPERTENSION 12/15/2017 DEANGELO FOSTER MD Ot I27.20 PULMONARY HYPERTENSION, UNSPECIFIED 12/15/2017 DEANGELO FOSTER MD Ot I48.91 UNSPECIFIED ATRIAL FIBRILLATION 12/15/2017 DEANGELO FOSTER MD Ot I51.9 HEART DISEASE, UNSPECIFIED 12/15/2017 DEANGELO FOSTER MD Ot K59.09 OTHER CONSTIPATION 12/15/2017 DEANGELO FOSTER MD Ot M17.0 BILATERAL PRIMARY OSTEOARTHRITIS OF KNEE 12/15/2017 DEANGELO FOSTER MD Ot N28.9 DISORDER OF KIDNEY AND URETER, UNSPECIFI 12/15/2017 DEANGELO FOSTER MD Ot R09.02 HYPOXEMIA 12/15/2017 DEANGELO FOSTER MD Ot R60.9 EDEMA, UNSPECIFIED 12/15/2017 DEANGELO FOSTER MD Ot Z79.4 SUPERVISOR WHEEL SHOP (CURRENT) USE OF INSULIN 12/15/2017 DEANGELO FOSTER MD Ot Z87.891 PERSONAL HISTORY OF NICOTINE DEPENDENCE 12/15/2017 DEANGELO FOSTER MD Ot Z90.710 ACQUIRED ABSENCE OF BOTH CERVIX AND UTER 12/15/2017 DEANGELO FOSTER MD Ot 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 JOINT, BILATE 12/15/2017 DEANGELO FOSTER MD Ot E11.40 TYPE 2 DIABETES MELLITUS WITH DIABETIC N 12/15/2017 DEANGELO FOSTER MD Ot E78.5 HYPERLIPIDEMIA, UNSPECIFIED 12/15/2017 DEANGELO FOSTER MD Ot F32.9 MAJOR DEPRESSIVE DISORDER, SINGLE EPISOD 12/15/2017 DEANGELO FOSTER MD Ot G89.4 CHRONIC PAIN SYNDROME 12/15/2017 DEANGELO FOSTER MD Ot I07.1 RHEUMATIC TRICUSPID INSUFFICIENCY 12/15/2017 DEANGELO FOSTER MD Ot I10 ESSENTIAL (PRIMARY) HYPERTENSION 12/15/2017 DEANGELO FOSTER MD Ot I27.20 PULMONARY HYPERTENSION, UNSPECIFIED 12/15/2017 DEANGELO FOSTER MD Ot I48.91 UNSPECIFIED ATRIAL FIBRILLATION 12/15/2017 DEANGELO FOSTER MD Ot I51.9 HEART DISEASE, UNSPECIFIED 12/15/2017 DEANGELO FOSTER MD Ot K59.09 OTHER CONSTIPATION 12/15/2017 DEANGELO FOSTER MD Ot M17.0 BILATERAL PRIMARY OSTEOARTHRITIS OF KNEE 12/15/2017 DEANGELO FOSTER MD Ot N28.9 DISORDER OF KIDNEY AND URETER, UNSPECIFI 12/15/2017 DEANGELO FOSTER MD Ot R09.02 HYPOXEMIA 12/15/2017 DEANGELO FOSTER MD Ot R60.9 EDEMA, UNSPECIFIED 12/15/2017 DEANGELO FOSTER MD Ot Z79.4 CUSTODIAL (CURRENT) USE OF INSULIN 12/15/2017 DEANGELO FOSTER MD Ot Z87.891 PERSONAL HISTORY OF NICOTINE DEPENDENCE 12/15/2017 DEANGELO FOSTER MD Ot Z90.710 ACQUIRED ABSENCE OF BOTH CERVIX AND UTER 12/15/2017 DEANGELO FOSTER MD Ot 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 JOINT, BILATE 12/15/2017 DEANGELO FOSTER MD Ot E11.40 TYPE 2 DIABETES MELLITUS WITH DIABETIC N 12/15/2017 DEANGELO FOSTER MD Ot E78.5 HYPERLIPIDEMIA, UNSPECIFIED 12/15/2017 DEANGELO FOSTER MD Ot F32.9 MAJOR DEPRESSIVE DISORDER, SINGLE EPISOD 12/15/2017 DEANGELO FOSTER MD Ot G89.4 CHRONIC PAIN SYNDROME 12/15/2017 DEANGELO FOSTER MD Ot I07.1 RHEUMATIC TRICUSPID INSUFFICIENCY 12/15/2017 DEANGELO FOSTER MD Ot I10 ESSENTIAL (PRIMARY) HYPERTENSION 12/15/2017 DEANGELO FOSTER MD Ot I27.20 PULMONARY HYPERTENSION, UNSPECIFIED 12/15/2017 DEANGELO FOSTER MD Ot I48.91 UNSPECIFIED ATRIAL FIBRILLATION 12/15/2017 DEANGELO FOSTER MD Ot I51.9 HEART DISEASE, UNSPECIFIED 12/15/2017 DEANGELO FOSTER MD Ot K59.09 OTHER CONSTIPATION 12/15/2017 DEANGELO FOSTER MD Ot M17.0 BILATERAL PRIMARY OSTEOARTHRITIS OF KNEE 12/15/2017 DEANGELO FOSTER MD Ot N28.9 DISORDER OF KIDNEY AND URETER, UNSPECIFI 12/15/2017 DEANGELO FOSTER MD Ot R09.02 HYPOXEMIA 12/15/2017 DEANGELO FOSTER MD Ot R60.9 EDEMA, UNSPECIFIED 12/15/2017 DEANGELO FOSTER MD Ot Z79.4 SUPERVISOR WHEEL SHOP (CURRENT) USE OF INSULIN 12/15/2017 DEANGELO FOSTER MD Ot Z87.891 PERSONAL HISTORY OF NICOTINE DEPENDENCE 12/15/2017 DEANGELO FOSTER MD Ot Z90.710 ACQUIRED ABSENCE OF BOTH CERVIX AND UTER 12/15/2017 DEANGELO FOSTER MD Ot 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 JOINT, BILATE 12/16/2017 DEANGELO FOSTER MD Ot E11.40 TYPE 2 DIABETES MELLITUS WITH DIABETIC N 12/16/2017 DEANGELO FOSTER MD Ot E78.5 HYPERLIPIDEMIA, UNSPECIFIED 12/16/2017 DEANGELO FOSTER MD Ot F32.9 MAJOR DEPRESSIVE DISORDER, SINGLE EPISOD 12/16/2017 DEANGELO FOSTER MD Ot G89.4 CHRONIC PAIN SYNDROME 12/16/2017 DEANGELO FOSTER MD Ot I07.1 RHEUMATIC TRICUSPID INSUFFICIENCY 12/16/2017 DEANGELO FOSTER MD Ot I10 ESSENTIAL (PRIMARY) HYPERTENSION 12/16/2017 DEANGELO FOSTER MD, Ot I27.20 PULMONARY HYPERTENSION, UNSPECIFIED 12/16/2017 DEANGELO FOSTER MD Ot I48.91 UNSPECIFIED ATRIAL FIBRILLATION 12/16/2017 DEANGELO FOSTER MD Ot I51.9 HEART DISEASE, UNSPECIFIED 12/16/2017 DEANGELO FOSTER MD Ot K59.09 OTHER CONSTIPATION 12/16/2017 DEANGELO FOSTER MD Ot M17.0 BILATERAL PRIMARY OSTEOARTHRITIS OF KNEE 12/16/2017 DEANGELO FOSTER MD Ot N28.9 DISORDER OF KIDNEY AND URETER, UNSPECIFI 12/16/2017 DEANGELO FOSTER MD Ot R09.02 HYPOXEMIA 12/16/2017 DEANGELO FOSTER MD Ot R60.9 EDEMA, UNSPECIFIED 12/16/2017 DEANGELO FOSTER MD Ot Z79.4 SUPERVISOR WHEEL SHOP (CURRENT) USE OF INSULIN 12/16/2017 DEANGELO FOSTER MD Ot Z87.891 PERSONAL HISTORY OF NICOTINE DEPENDENCE 12/16/2017 DEANGELO FOSTER MD Ot Z90.710 ACQUIRED ABSENCE OF BOTH CERVIX AND UTER 12/16/2017 DEANGELO FOSTER MD Ot 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 JOINT, BILATE 12/16/2017 DEANGELO FOSTER MD Ot E11.40 TYPE 2 DIABETES MELLITUS WITH DIABETIC N 12/16/2017 DEANGELO FOSTER MD, Ot E78.5 HYPERLIPIDEMIA, UNSPECIFIED 12/16/2017 DEANGELO FOSTER MD Ot F32.9 MAJOR DEPRESSIVE DISORDER, SINGLE EPISOD 12/16/2017 DEANGELO FOSTER MD Ot G89.4 CHRONIC PAIN SYNDROME 12/16/2017 DEANGELO FOSTER MD Ot I07.1 RHEUMATIC TRICUSPID INSUFFICIENCY 12/16/2017 DEANGELO FOSTER MD Ot I10 ESSENTIAL (PRIMARY) HYPERTENSION 12/16/2017 DEANGELO FOSTER MD Ot I27.20 PULMONARY HYPERTENSION, UNSPECIFIED 12/16/2017 DEANGELO FOSTER MD Ot I48.91 UNSPECIFIED ATRIAL FIBRILLATION 12/16/2017 DEANGELO FOSTER MD Ot I51.9 HEART DISEASE, UNSPECIFIED 12/16/2017 DEANGELO FOSTER MD Ot K59.09 OTHER CONSTIPATION 12/16/2017 DEANGELO FOSTER MD Ot M17.0 BILATERAL PRIMARY OSTEOARTHRITIS OF KNEE 12/16/2017 DEANGELO FOSTER MD Ot N28.9 DISORDER OF KIDNEY AND URETER, UNSPECIFI 12/16/2017 DEANGELO FOSTER MD Ot R09.02 HYPOXEMIA 12/16/2017 DEANGELO FOSTER MD Ot R60.9 EDEMA, UNSPECIFIED 12/16/2017 DEANGELO FOSTER MD Ot Z79.4 SUPERVISOR WHEEL SHOP (CURRENT) USE OF INSULIN 12/16/2017 DEANGELO FOSTER MD Ot Z87.891 PERSONAL HISTORY OF NICOTINE DEPENDENCE 12/16/2017 DEANGELO FOSTER MD Ot Z90.710 ACQUIRED ABSENCE OF BOTH CERVIX AND UTER 12/16/2017 DEANGELO FOSTER MD Ot 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 JOINT, BILATE 12/17/2017 DEANGELO FOSTER MD Ot E11.40 TYPE 2 DIABETES MELLITUS WITH DIABETIC N 12/17/2017 DEANGELO FOSTER MD Ot E78.5 HYPERLIPIDEMIA, UNSPECIFIED 12/17/2017 DEANGELO FOSTER MD Ot F32.9 MAJOR DEPRESSIVE DISORDER, SINGLE EPISOD 12/17/2017 DEANGELO FOSTER MD Ot G89.4 CHRONIC PAIN SYNDROME 12/17/2017 DEANGELO FOSTER MD Ot I07.1 RHEUMATIC TRICUSPID INSUFFICIENCY 12/17/2017 DEANGELO FOSTER MD Ot I10 ESSENTIAL (PRIMARY) HYPERTENSION 12/17/2017 DEANGEOL FOSTER MD Ot I27.20 PULMONARY HYPERTENSION, UNSPECIFIED 12/17/2017 DEANGELO FOSTER MD Ot I48.91 UNSPECIFIED ATRIAL FIBRILLATION 12/17/2017 DEANGELO FOSTER MD Ot I51.9 HEART DISEASE, UNSPECIFIED 12/17/2017 DEANGELO FOSTER MD, Ot K59.09 OTHER CONSTIPATION 12/17/2017 DEANGELO FOSTER MD Ot M17.0 BILATERAL PRIMARY OSTEOARTHRITIS OF KNEE 12/17/2017 DEANGELO FOSTER MD Ot N28.9 DISORDER OF KIDNEY AND URETER, UNSPECIFI 12/17/2017 DEANGELO FOSTER MD Ot R09.02 HYPOXEMIA 12/17/2017 DEANGELO FOSTER MD, Ot R60.9 EDEMA, UNSPECIFIED 12/17/2017 DEANGELO FOSTER MD Ot Z79.4 [employer] (CURRENT) USE OF INSULIN 12/17/2017 DEANGELO FOSTER MD Ot Z87.891 PERSONAL HISTORY OF NICOTINE DEPENDENCE 12/17/2017 DEANGELO FOSTER MD Ot Z90.710 ACQUIRED ABSENCE OF BOTH CERVIX AND UTER 12/17/2017 DEANGELO FOSTER MD Ot 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 JOINT, BILATE 12/18/2017 DEANGELO FOSTER MD Ot E11.40 TYPE 2 DIABETES MELLITUS WITH DIABETIC N 12/18/2017 DEANGELO FOSTER MD Ot E78.5 HYPERLIPIDEMIA, UNSPECIFIED 12/18/2017 DEANGELO FOSTER MD Ot F32.9 MAJOR DEPRESSIVE DISORDER, SINGLE EPISOD 12/18/2017 DEANGELO FOSTER MD Ot G89.4 CHRONIC PAIN SYNDROME 12/18/2017 DEANGELO FOSTER MD Ot I07.1 RHEUMATIC TRICUSPID INSUFFICIENCY 12/18/2017 DEANGELO FOSTER MD Ot I10 ESSENTIAL (PRIMARY) HYPERTENSION 12/18/2017 DEANGELO FOSTER MD Ot I27.20 PULMONARY HYPERTENSION, UNSPECIFIED 12/18/2017 DEANGELO FOSTER MD Ot I48.91 UNSPECIFIED ATRIAL FIBRILLATION 12/18/2017 DEANGELO FOSTER MD Ot I51.9 HEART DISEASE, UNSPECIFIED 12/18/2017 DEANGELO FOSTER MD Ot K59.09 OTHER CONSTIPATION 12/18/2017 DEANGELO FOSTER MD Ot M17.0 BILATERAL PRIMARY OSTEOARTHRITIS OF KNEE 12/18/2017 DEANGELO FOSTER MD Ot N28.9 DISORDER OF KIDNEY AND URETER, UNSPECIFI 12/18/2017 DEANGELO FOSTER MD Ot R09.02 HYPOXEMIA 12/18/2017 DEANGELO FOSTER MD Ot R60.9 EDEMA, UNSPECIFIED 12/18/2017 DEANGELO FOSTER MD Ot Z79.4 SUPER[employer] (CURRENT) USE OF INSULIN 12/18/2017 DEANGELO FOSTER MD Ot Z87.891 PERSONAL HISTORY OF NICOTINE DEPENDENCE 12/18/2017 DEANGELO FOSTER MD Ot Z90.710 ACQUIRED ABSENCE OF BOTH CERVIX AND UTER 12/18/2017 DEANGELO FOSTER MD Ot 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 JOINT, BILATE 12/18/2017 DEANGELO FOSTER MD Ot E11.40 TYPE 2 DIABETES MELLITUS WITH DIABETIC N 12/18/2017 DEANGELO FOSTER MD Ot E78.5 HYPERLIPIDEMIA, UNSPECIFIED 12/18/2017 DEANGELO FOSTER MD Ot F32.9 MAJOR DEPRESSIVE DISORDER, SINGLE EPISOD 12/18/2017 DEANGELO FOSTER MD Ot F41.9 ANXIETY DISORDER, UNSPECIFIED 12/18/2017 DEANGELO FOSTER MD Ot G47.30 SLEEP APNEA, UNSPECIFIED 12/18/2017 DEANGELO FOSTER MD Ot G89.4 CHRONIC PAIN SYNDROME 12/18/2017 DEANGELO FOSTER MD Ot I07.1 RHEUMATIC TRICUSPID INSUFFICIENCY 12/18/2017 DEANGELO FOSTER MD Ot I10 ESSENTIAL (PRIMARY) HYPERTENSION 12/18/2017 DEANGELO FOSTER MD Ot I11.0 HYPERTENSIVE HEART DISEASE WITH HEART FA 12/18/2017 DEANGELO FOSTER MD Ot I27.20 PULMONARY HYPERTENSION, UNSPECIFIED 12/18/2017 DEANGELO FOSTER MD Ot I48.1 PERSISTENT ATRIAL FIBRILLATION 12/18/2017 DEANGELO FOSTER MD Ot I48.91 UNSPECIFIED ATRIAL FIBRILLATION 12/18/2017 DEANGELO FOSTER MD Ot I50.31 ACUTE DIASTOLIC (CONGESTIVE) HEART FAILU 12/18/2017 DEANGELO FOSTER MD, Ot I51.9 HEART DISEASE, UNSPECIFIED 12/18/2017 DEANGELO FOSTER MD Ot K59.09 OTHER CONSTIPATION 12/18/2017 DEANGELO FOSTER MD Ot M17.0 BILATERAL PRIMARY OSTEOARTHRITIS OF KNEE 12/18/2017 DEANGELO FOSTER MD Ot N28.9 DISORDER OF KIDNEY AND URETER, UNSPECIFI 12/18/2017 DEANGELO FOSTER MD Ot R09.02 HYPOXEMIA 12/18/2017 DEANGELO FOSTER MD Ot R60.9 EDEMA, UNSPECIFIED 12/18/2017 DEANGELO FOSTER MD Ot Z23 ENCOUNTER FOR IMMUNIZATION 12/18/2017 DEANGELO FOSTER MD Ot Z79.4 CUSTODIAL (CURRENT) USE OF INSULIN 12/18/2017 DEANGELO FOSTER MD Ot Z87.891 PERSONAL HISTORY OF NICOTINE DEPENDENCE 12/18/2017 DEANGELO FOSTER MD Ot Z90.710 ACQUIRED ABSENCE OF BOTH CERVIX AND UTER 12/18/2017 DEANGELO FOSTER MD Ot 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 [...] culture - 09/11/16 20:18 Bacterial urine culture [id number] NRG COLONY COUNT 10,000/ML - 100,000/ML NRG [...] Staphylococcus aureus (MRSA) screening culture NEG NRG Automated blood complete blood count (hemogram) panel - 12/11/17 14:05 Blood leukocytes automated count (number/volume) 8.0 10*3/uL 4.3-11.0 Blood erythrocytes automated count (number/volume) 3.85 10*6/uL 4.35-5.85 Venous blood hemoglobin measurement (mass/volume) 10.4 g/dL 11.5-16.0 Blood hematocrit (volume fraction) 34 % 35-52 Automated erythrocyte mean corpuscular volume 89 [foz_us] 80-99 Automated erythrocyte mean corpuscular hemoglobin (mass per erythrocyte) 27 pg 25-34 Automated erythrocyte mean corpuscular hemoglobin concentration measurement ( mass/volume) 30 g/dL 32-36 Automated erythrocyte distribution width ratio 16.9 % 10.0-14.5 Automated blood platelet count (count/volume) 164 10*3/uL 130-400 Automated blood platelet mean volume measurement 11.0 [foz_us] 7.4-10.4 Comprehensive metabolic panel - 12/11/17 14:05 Serum or plasma sodium measurement (moles/volume) 142 mmol/L 135-145 Serum or plasma potassium measurement (moles/volume) 4.0 mmol/L 3.6-5.0 Serum or plasma chloride measurement (moles/volume) 112 mmol/L 98-107 Carbon dioxide 19 mmol/L 21-32 Serum or plasma anion gap determination (moles/volume) 11 mmol/L 5-14 Serum or plasma urea nitrogen measurement (mass/volume) 19 mg/dL 7-18 Serum or plasma creatinine measurement (mass/volume) 0.85 mg/dL 0.60-1.30 Serum or plasma urea nitrogen/creatinine mass ratio 22 NRG Serum or plasma creatinine measurement with calculation of estimated glomerular filtration rate > NRG Serum or plasma glucose measurement (mass/volume) 102 mg/dL 70-105 Serum or plasma calcium measurement (mass/volume) 9.2 mg/dL 8.5-10.1 Serum or plasma total bilirubin measurement (mass/volume) 0.7 mg/dL 0.1-1.0 Serum or plasma alkaline phosphatase measurement (enzymatic activity/volume) 81 U/L 40-136 Serum or plasma aspartate aminotransferase measurement (enzymatic activity/ volume) 14 U/L 5-34 Serum or plasma alanine aminotransferase measurement (enzymatic activity/volume ) 9 U/L 0-55 Serum or plasma protein measurement (mass/volume) 6.7 g/dL 6.4-8.2 Serum or plasma albumin measurement (mass/volume) 3.7 g/dL 3.2-4.5 CALCIUM CORRECTED 9.4 mg/dL 8.5-10.1 Serum or plasma lithium measurement (moles/volume) - 12/11/17 14:05 BNP level 415.9 pg/mL <100.0 Complete urinalysis with reflex to culture - 12/11/17 14:25 Urine color determination YELLOW NRG Urine clarity determination CLEAR NRG Urine pH measurement by test strip 6 5-9 Specific gravity of urine by test strip 1.015 1.016- 1.022 Urine protein assay by test strip, semi-quantitative 2+ NEGATIVE Urine glucose detection by automated test strip NEGATIVE NEGATIVE Erythrocytes detection in urine sediment by light microscopy NEGATIVE NEGATIVE Urine ketones detection by automated test strip NEGATIVE NEGATIVE Urine nitrite detection by test strip NEGATIVE NEGATIVE Urine total bilirubin detection by test strip NEGATIVE NEGATIVE Urine urobilinogen measurement by automated test strip (mass/volume) NORMAL NORMAL Urine leukocyte esterase detection by dipstick 1+ NEGATIVE Automated urine sediment erythrocyte count by microscopy (number/high power field) RARE NRG Automated urine sediment leukocyte count by microscopy (number/high power field ) [HPF] NRG Bacteria detection in urine sediment by light microscopy NEGATIVE NRG Squamous epithelial cells detection in urine sediment by light microscopy 2-5 NRG Crystals detection in urine sediment by light microscopy NONE NRG Casts detection in urine sediment by light microscopy NONE NRG Mucus detection in urine sediment by light microscopy NEGATIVE NRG Complete urinalysis with reflex to culture NO NRG Capillary blood glucose measurement by glucometer (mass/volume) - 12/11/17 16: 30 Capillary blood glucose measurement by glucometer (mass/volume) 99 mg/dL 70-110 Capillary blood glucose measurement by glucometer (mass/volume) - 12/11/17 20: 02 Capillary blood glucose measurement by glucometer (mass/volume) 112 mg/dL 70-110 Automated blood complete blood count (hemogram) panel - 12/12/17 05:12 Blood leukocytes automated count (number/volume) 6.9 10*3/uL 4.3-11.0 Blood erythrocytes automated count (number/volume) 3.70 10*6/uL 4.35-5.85 Venous blood hemoglobin measurement (mass/volume) 10.2 g/dL 11.5-16.0 Blood hematocrit (volume fraction) 32 % 35-52 Automated erythrocyte mean corpuscular volume 87 [foz_us] 80-99 Automated erythrocyte mean corpuscular hemoglobin (mass per erythrocyte) 28 pg 25-34 Automated erythrocyte mean corpuscular hemoglobin concentration measurement ( mass/volume) 32 g/dL 32-36 Automated erythrocyte distribution width ratio 16.3 % 10.0-14.5 Automated blood platelet count (count/volume) 182 10*3/uL 130-400 Automated blood platelet mean volume measurement 11.0 [foz_us] 7.4-10.4 Whole blood basic metabolic panel - 12/12/17 05:12 Serum or plasma sodium measurement (moles/volume) 144 mmol/L 135-145 Serum or plasma potassium measurement (moles/volume) 3.4 mmol/L 3.6-5.0 Serum or plasma chloride measurement (moles/volume) 107 mmol/L 98-107 Carbon dioxide 26 mmol/L 21-32 Serum or plasma anion gap determination (moles/volume) 11 mmol/L 5-14 Serum or plasma urea nitrogen measurement (mass/volume) 17 mg/dL 7-18 Serum or plasma creatinine measurement (mass/volume) 0.85 mg/dL 0.60-1.30 Serum or plasma urea nitrogen/creatinine mass ratio 20 NRG Serum or plasma creatinine measurement with calculation of estimated glomerular filtration rate > NRG Serum or plasma glucose measurement (mass/volume) 82 mg/dL 70-105 Serum or plasma calcium measurement (mass/volume) 8.8 mg/dL 8.5-10.1 Capillary blood glucose measurement by glucometer (mass/volume) - 12/12/17 11: 26 Capillary blood glucose measurement by glucometer (mass/volume) 114 mg/dL 70-110 Capillary blood glucose measurement by glucometer (mass/volume) - 12/12/17 16: 45 Capillary blood glucose measurement by glucometer (mass/volume) 114 mg/dL 70-110 Capillary blood glucose measurement by glucometer (mass/volume) - 12/12/17 20: 06 Capillary blood glucose measurement by glucometer (mass/volume) 98 mg/dL 70-110 Automated blood complete blood count (hemogram) panel - 12/13/17 04:35 Blood leukocytes automated count (number/volume) 6.5 10*3/uL 4.3-11.0 Blood erythrocytes automated count (number/volume) 3.83 10*6/uL 4.35-5.85 Venous blood hemoglobin measurement (mass/volume) 10.1 g/dL 11.5-16.0 Blood hematocrit (volume fraction) 33 % 35-52 Automated erythrocyte mean corpuscular volume 87 [foz_us] 80-99 Automated erythrocyte mean corpuscular hemoglobin (mass per erythrocyte) 26 pg 25-34 Automated erythrocyte mean corpuscular hemoglobin concentration measurement ( mass/volume) 30 g/dL 32-36 Automated erythrocyte distribution width ratio 16.3 % 10.0-14.5 Automated blood platelet count (count/volume) 187 10*3/uL 130-400 Automated blood platelet mean volume measurement 10.3 [foz_us] 7.4-10.4 Whole blood basic metabolic panel - 12/13/17 04:35 Serum or plasma sodium measurement (moles/volume) 143 mmol/L 135-145 Serum or plasma potassium measurement (moles/volume) 3.2 mmol/L 3.6-5.0 Serum or plasma chloride measurement (moles/volume) 106 mmol/L 98-107 Carbon dioxide 28 mmol/L 21-32 Serum or plasma anion gap determination (moles/volume) 9 mmol/L 5-14 Serum or plasma urea nitrogen measurement (mass/volume) 15 mg/dL 7-18 Serum or plasma creatinine measurement (mass/volume) 0.88 mg/dL 0.60-1.30 Serum or plasma urea nitrogen/creatinine mass ratio 17 NRG Serum or plasma creatinine measurement with calculation of estimated glomerular filtration rate > NRG Serum or plasma glucose measurement (mass/volume) 99 mg/dL 70-105 Serum or plasma calcium measurement (mass/volume) 8.8 mg/dL 8.5-10.1 Capillary blood glucose measurement by glucometer (mass/volume) - 12/13/17 11: 26 Capillary blood glucose measurement by glucometer (mass/volume) 157 mg/dL 70-110 Capillary blood glucose measurement by glucometer (mass/volume) - 12/13/17 15: 39 Capillary blood glucose measurement by glucometer (mass/volume) 103 mg/dL 70-110 Capillary blood glucose measurement by glucometer (mass/volume) - 12/13/17 19: 51 Capillary blood glucose measurement by glucometer (mass/volume) 126 mg/dL 70-110 Automated blood complete blood count (hemogram) panel - 12/14/17 05:30 Blood leukocytes automated count (number/volume) 6.5 10*3/uL 4.3-11.0 Blood erythrocytes automated count (number/volume) 3.79 10*6/uL 4.35-5.85 Venous blood hemoglobin measurement (mass/volume) 10.2 g/dL 11.5-16.0 Blood hematocrit (volume fraction) 33 % 35-52 Automated erythrocyte mean corpuscular volume 87 [foz_us] 80-99 Automated erythrocyte mean corpuscular hemoglobin (mass per erythrocyte) 27 pg 25-34 Automated erythrocyte mean corpuscular hemoglobin concentration measurement ( mass/volume) 31 g/dL 32-36 Automated erythrocyte distribution width ratio 16.1 % 10.0-14.5 Automated blood platelet count (count/volume) 183 10*3/uL 130-400 Automated blood platelet mean volume measurement 10.6 [foz_us] 7.4-10.4 Whole blood basic metabolic panel - 12/14/17 05:30 Serum or plasma sodium measurement (moles/volume) 144 mmol/L 135-145 Serum or plasma potassium measurement (moles/volume) 3.2 mmol/L 3.6-5.0 Serum or plasma chloride measurement (moles/volume) 106 mmol/L 98-107 Carbon dioxide 27 mmol/L 21-32 Serum or plasma anion gap determination (moles/volume) 11 mmol/L 5-14 Serum or plasma urea nitrogen measurement (mass/volume) 13 mg/dL 7-18 Serum or plasma creatinine measurement (mass/volume) 0.76 mg/dL 0.60-1.30 Serum or plasma urea nitrogen/creatinine mass ratio 17 NRG Serum or plasma creatinine measurement with calculation of estimated glomerular filtration rate > NRG Serum or plasma glucose measurement (mass/volume) 75 mg/dL 70-105 Serum or plasma calcium measurement (mass/volume) 9.1 mg/dL 8.5-10.1 Capillary blood glucose measurement by glucometer (mass/volume) - 12/14/17 10: 52 Capillary blood glucose measurement by glucometer (mass/volume) 121 mg/dL 70-110 Capillary blood glucose measurement by glucometer (mass/volume) - 12/14/17 15: 55 Capillary blood glucose measurement by glucometer (mass/volume) 92 mg/dL 70-110 Capillary blood glucose measurement by glucometer (mass/volume) - 12/14/17 20: 38 Capillary blood glucose measurement by glucometer (mass/volume) 130 mg/dL 70-110 Complete blood count (CBC) with automated white blood cell (WBC) differential - 12/15/17 04:50 Blood leukocytes automated count (number/volume) 7.7 10*3/uL 4.3-11.0 Blood erythrocytes automated count (number/volume) 3.93 10*6/uL 4.35-5.85 Venous blood hemoglobin measurement (mass/volume) 10.5 g/dL 11.5-16.0 Blood hematocrit (volume fraction) 34 % 35-52 Automated erythrocyte mean corpuscular volume 87 [foz_us] 80-99 Automated erythrocyte mean corpuscular hemoglobin (mass per erythrocyte) 27 pg 25-34 Automated erythrocyte mean corpuscular hemoglobin concentration measurement ( mass/volume) 31 g/dL 32-36 Automated erythrocyte distribution width ratio 16.3 % 10.0-14.5 Automated blood platelet count (count/volume) 218 10*3/uL 130-400 Automated blood platelet mean volume measurement 10.5 [foz_us] 7.4-10.4 Automated blood neutrophils/100 leukocytes 70 % 42-75 Automated blood lymphocytes/100 leukocytes 15 % 12-44 Blood monocytes/100 leukocytes 10 % 0-12 Automated blood eosinophils/100 leukocytes 4 % 0-10 Automated blood basophils/100 leukocytes 0 % 0-10 Blood neutrophils automated count (number/volume) 5.4 10*3 1.8-7.8 Blood lymphocytes automated count (number/volume) 1.2 10*3 1.0-4.0 Blood monocytes automated count (number/volume) 0.8 10*3 0.0-1.0 Automated eosinophil count 0.3 10*3/uL 0.0-0.3 Automated blood basophil count (count/volume) 0.0 10*3/uL 0.0-0.1 Comprehensive metabolic panel - 12/15/17 04:50 Serum or plasma sodium measurement (moles/volume) 143 mmol/L 135-145 Serum or plasma potassium measurement (moles/volume) 3.5 mmol/L 3.6-5.0 Serum or plasma chloride measurement (moles/volume) 104 mmol/L 98-107 Carbon dioxide 29 mmol/L 21-32 Serum or plasma anion gap determination (moles/volume) 10 mmol/L 5-14 Serum or plasma urea nitrogen measurement (mass/volume) 14 mg/dL 7-18 Serum or plasma creatinine measurement (mass/volume) 0.81 mg/dL 0.60-1.30 Serum or plasma urea nitrogen/creatinine mass ratio 17 NRG Serum or plasma creatinine measurement with calculation of estimated glomerular filtration rate > NRG Serum or plasma glucose measurement (mass/volume) 70 mg/dL 70-105 Serum or plasma calcium measurement (mass/volume) 9.4 mg/dL 8.5-10.1 Serum or plasma total bilirubin measurement (mass/volume) 0.5 mg/dL 0.1-1.0 Serum or plasma alkaline phosphatase measurement (enzymatic activity/volume) 75 U/L 40-136 Serum or plasma aspartate aminotransferase measurement (enzymatic activity/ volume) 22 U/L 5-34 Serum or plasma alanine aminotransferase measurement (enzymatic activity/volume ) 11 U/L 0-55 Serum or plasma protein measurement (mass/volume) 6.8 g/dL 6.4-8.2 Serum or plasma albumin measurement (mass/volume) 3.8 g/dL 3.2-4.5 CALCIUM CORRECTED 9.6 mg/dL 8.5-10.1 Capillary blood glucose measurement by glucometer (mass/volume) - 12/15/17 05: 44 Capillary blood glucose measurement by glucometer (mass/volume) 78 mg/dL 70-110 Capillary blood glucose measurement by glucometer (mass/volume) - 12/15/17 10: 56 Capillary blood glucose measurement by glucometer (mass/volume) 143 mg/dL 70-110 Capillary blood glucose measurement by glucometer (mass/volume) - 12/15/17 15: 51 Capillary blood glucose measurement by glucometer (mass/volume) 113 mg/dL 70-110 Capillary blood glucose measurement by glucometer (mass/volume) - 12/15/17 20: 18 Capillary blood glucose measurement by glucometer (mass/volume) 123 mg/dL 70-110 Capillary blood glucose measurement by glucometer (mass/volume) - 12/16/17 05: 40 Capillary blood glucose measurement by glucometer (mass/volume) 109 mg/dL 70-110 Automated blood complete blood count (hemogram) panel - 12/16/17 06:05 Blood leukocytes automated count (number/volume) 6.3 10*3/uL 4.3-11.0 Blood erythrocytes automated count (number/volume) 4.00 10*6/uL 4.35-5.85 Venous blood hemoglobin measurement (mass/volume) 10.8 g/dL 11.5-16.0 Blood hematocrit (volume fraction) 35 % 35-52 Automated erythrocyte mean corpuscular volume 86 [foz_us] 80-99 Automated erythrocyte mean corpuscular hemoglobin (mass per erythrocyte) 27 pg 25-34 Automated erythrocyte mean corpuscular hemoglobin concentration measurement ( mass/volume) 31 g/dL 32-36 Automated erythrocyte distribution width ratio 16.2 % 10.0-14.5 Automated blood platelet count (count/volume) 212 10*3/uL 130-400 Automated blood platelet mean volume measurement 10.9 [foz_us] 7.4-10.4 Whole blood basic metabolic panel - 12/16/17 06:05 Serum or plasma sodium measurement (moles/volume) 140 mmol/L 135-145 Serum or plasma potassium measurement (moles/volume) 3.5 mmol/L 3.6-5.0 Serum or plasma chloride measurement (moles/volume) 104 mmol/L 98-107 Carbon dioxide 26 mmol/L 21-32 Serum or plasma anion gap determination (moles/volume) 10 mmol/L 5-14 Serum or plasma urea nitrogen measurement (mass/volume) 17 mg/dL 7-18 Serum or plasma creatinine measurement (mass/volume) 0.87 mg/dL 0.60-1.30 Serum or plasma urea nitrogen/creatinine mass ratio 20 NRG Serum or plasma creatinine measurement with calculation of estimated glomerular filtration rate > NRG Serum or plasma glucose measurement (mass/volume) 102 mg/dL 70-105 Serum or plasma calcium measurement (mass/volume) 9.4 mg/dL 8.5-10.1 Serum or plasma lithium measurement (moles/volume) - 12/16/17 06:05 BNP level 293.8 pg/mL <100.0 Capillary blood glucose measurement by glucometer (mass/volume) - 12/16/17 11: 37 Capillary blood glucose measurement by glucometer (mass/volume) 164 mg/dL 70-110 Capillary blood glucose measurement by glucometer (mass/volume) - 12/16/17 16: 14 Capillary blood glucose measurement by glucometer (mass/volume) 165 mg/dL 70-110 Capillary blood glucose measurement by glucometer (mass/volume) - 12/16/17 20: 06 Capillary blood glucose measurement by glucometer (mass/volume) 126 mg/dL 70-110 Capillary blood glucose measurement by glucometer (mass/volume) - 12/17/17 00: 54 Capillary blood glucose measurement by glucometer (mass/volume) 73 mg/dL 70-110 Automated blood complete blood count (hemogram) panel - 12/17/17 05:30 Blood leukocytes automated count (number/volume) 5.9 10*3/uL 4.3-11.0 Blood erythrocytes automated count (number/volume) 4.14 10*6/uL 4.35-5.85 Venous blood hemoglobin measurement (mass/volume) 11.1 g/dL 11.5-16.0 Blood hematocrit (volume fraction) 36 % 35-52 Automated erythrocyte mean corpuscular volume 86 [foz_us] 80-99 Automated erythrocyte mean corpuscular hemoglobin (mass per erythrocyte) 27 pg 25-34 Automated erythrocyte mean corpuscular hemoglobin concentration measurement ( mass/volume) 31 g/dL 32-36 Automated erythrocyte distribution width ratio 16.3 % 10.0-14.5 Automated blood platelet count (count/volume) 231 10*3/uL 130-400 Automated blood platelet mean volume measurement 10.4 [foz_us] 7.4-10.4 Whole blood basic metabolic panel - 12/17/17 05:30 Serum or plasma sodium measurement (moles/volume) 142 mmol/L 135-145 Serum or plasma potassium measurement (moles/volume) 3.7 mmol/L 3.6-5.0 Serum or plasma chloride measurement (moles/volume) 103 mmol/L 98-107 Carbon dioxide 28 mmol/L 21-32 Serum or plasma anion gap determination (moles/volume) 11 mmol/L 5-14 Serum or plasma urea nitrogen measurement (mass/volume) 18 mg/dL 7-18 Serum or plasma creatinine measurement (mass/volume) 0.96 mg/dL 0.60-1.30 Serum or plasma urea nitrogen/creatinine mass ratio 19 NRG Serum or plasma creatinine measurement with calculation of estimated glomerular filtration rate 56 NRG Serum or plasma glucose measurement (mass/volume) 107 mg/dL 70-105 Serum or plasma calcium measurement (mass/volume) 9.3 mg/dL 8.5-10.1 Capillary blood glucose measurement by glucometer (mass/volume) - 12/17/17 05: 35 Capillary blood glucose measurement by glucometer (mass/volume) 107 mg/dL 70-110 Capillary blood glucose measurement by glucometer (mass/volume) - 12/17/17 11: 24 Capillary blood glucose measurement by glucometer (mass/volume) 194 mg/dL 70-110 Capillary blood glucose measurement by glucometer (mass/volume) - 12/17/17 16: 07 Capillary blood glucose measurement by glucometer (mass/volume) 123 mg/dL 70-110 Capillary blood glucose measurement by glucometer (mass/volume) - 12/17/17 20: 52 Capillary blood glucose measurement by glucometer (mass/volume) 172 mg/dL 70-110 Capillary blood glucose measurement by glucometer (mass/volume) - 12/18/17 05: 14 Capillary blood glucose measurement by glucometer (mass/volume) 79 mg/dL 70-110 Automated blood complete blood count (hemogram) panel - 12/18/17 06:40 Blood leukocytes automated count (number/volume) 6.6 10*3/uL 4.3-11.0 Blood erythrocytes automated count (number/volume) 4.20 10*6/uL 4.35-5.85 Venous blood hemoglobin measurement (mass/volume) 11.2 g/dL 11.5-16.0 Blood hematocrit (volume fraction) 36 % 35-52 Automated erythrocyte mean corpuscular volume 86 [foz_us] 80-99 Automated erythrocyte mean corpuscular hemoglobin (mass per erythrocyte) 27 pg 25-34 Automated erythrocyte mean corpuscular hemoglobin concentration measurement ( mass/volume) 31 g/dL 32-36 Automated erythrocyte distribution width ratio 16.1 % 10.0-14.5 Automated blood platelet count (count/volume) 244 10*3/uL 130-400 Automated blood platelet mean volume measurement 10.3 [foz_us] 7.4-10.4 Whole blood basic metabolic panel - 12/18/17 06:40 Serum or plasma sodium measurement (moles/volume) 142 mmol/L 135-145 Serum or plasma potassium measurement (moles/volume) 3.7 mmol/L 3.6-5.0 Serum or plasma chloride measurement (moles/volume) 103 mmol/L 98-107 Carbon dioxide 28 mmol/L 21-32 Serum or plasma anion gap determination (moles/volume) 11 mmol/L 5-14 Serum or plasma urea nitrogen measurement (mass/volume) 17 mg/dL 7-18 Serum or plasma creatinine measurement (mass/volume) 0.91 mg/dL 0.60-1.30 Serum or plasma urea nitrogen/creatinine mass ratio 19 NRG Serum or plasma creatinine measurement with calculation of estimated glomerular filtration rate 59 NRG Serum or plasma glucose measurement (mass/volume) 94 mg/dL 70-105 Serum or plasma calcium measurement (mass/volume) 9.4 mg/dL 8.5-10.1 Capillary blood glucose measurement by glucometer (mass/volume) - 12/18/17 08: 14 Capillary blood glucose measurement by glucometer (mass/volume) 100 mg/dL 70-110 Capillary blood glucose measurement by glucometer (mass/volume) - 12/18/17 11: 12 Capillary blood glucose measurement by glucometer (mass/volume) 240 mg/dL 70-110 Capillary blood glucose measurement by glucometer (mass/volume) - 12/18/17 15: 22 Capillary blood glucose measurement by glucometer (mass/volume) 119 mg/dL 70-110 Encounters ACCT No. Visit Date/Time Discharge Status Pt. Type Provider Facility Loc./Unit Complaint [id number] 12/11/2017 12:00:00 12/18/2017 17:05:00 DIS Inpatient DEANGELO FOSTER MD [facility] 4TH HYPOXEMIA;FLUID OVERLOAD [id number] 12/11/2017 12:09:00 12/11/2017 12:09:00 CAN Preadmit DEANGELO FOSTER MD [facility] 4TH FLUID OVERLOAD,HYPOXIA [id number] 06/02/2017 11:05:00 06/02/2017 15:38:00 DIS Outpatient NAVID RAND MD [facility] NON-FUNCTIONING PORT [id number] 06/01/2017 05:36:00 06/01/2017 10:14:00 DIS Outpatient NAVID RAND MD [facility] PREOP NON-FUNCTIONING PORT [id number] 12/07/2016 02:46:00 12/07/2016 23:59:59 CLS Preadmit BRENDAN SPENCER [facility] IMPLANTED PORT, DIABETES,HYPERLIPIDEMA,HYPERTENSION [id number] 11/25/2016 11:41:00 12/06/2016 00:01:00 DIS Outpatient BRENDAN SPENCER [facility] IMPLANTED PORT, DIABETES,HYPERLIPIDEMA,HYPERTENSION [id number] 10/06/2016 17:10:00 10/06/2016 23:59:59 CLS Outpatient VERONICA COFFMAN APRN [facility] RAD RIGHT LEG PAIN/ SWELLING [id number] 09/11/2016 19:56:00 09/11/2016 22:31:00 DIS Emergency EVA MCKNIGHT, JEFFREY Ortega [facility] ER RT SIDED ABD PAIN [id number] 09/02/2016 11:05:00 09/07/2016 00:01:00 DIS Outpatient BRENDAN SPENCER [facility] IMPLANTED PORT, DIABETES,HYPERLIPIDEMA,HYPERTENSION [id number] 04/17/2016 12:20:00 05/07/2016 00:01:00 DIS Outpatient BRENDAN SPENCER [facility] IMPLANTED PORT, DIABETES,HYPERLIPIDEMA,HYPERTENSION [id number] 12/28/2015 10:47:00 12/28/2015 13:30:00 DIS Outpatient LISSA GENAO MD [facility] DYSPHAGIA [id number] 12/27/2015 05:58:00 12/27/2015 10:00:00 DIS Outpatient LISSA GENAO MD [facility] PREOP DYSPHAGIA [id number] 12/10/2015 12:17:00 12/23/2015 00:01:00 DIS Outpatient BRENDAN SPENCER [facility] IMPLANTED PORT, DIABETES,HYPERLIPIDEMA,HYPERTENSION [id number] 12/13/2015 12:18:00 12/13/2015 23:59:59 CLS Outpatient BRENDAN SPENCER [facility] RAD THYROID NODULE [id number] 08/13/2015 12:06:00 08/13/2015 23:59:59 CLS Outpatient BRENDAN SPENCER [facility] HYPERTENSION, DIABETES,CKD [id number] 06/21/2015 12:22:00 07/29/2015 00:01:00 DIS Outpatient BRENDAN SPENCER [facility] IMPLANTED PORT, DIABETES,HYPERLIPIDEMA,HYPERTENSION [id number] 04/30/2015 08:12:00 04/30/2015 23:59:59 CLS Outpatient VERONICA COFFMAN APRN [facility] DIABETES,ROUINE EXAM [id number] 03/07/2015 09:52:00 04/18/2015 00:01:00 DIS Outpatient BRENDAN SPENCER [facility] IMPLANTED PORT, DIABETES,HYPERLIPIDEMA,HYPERTENSION [id number] 12/05/2014 10:50:00 12/06/2014 00:01:00 DIS Outpatient BRENDAN SPENCER [facility] IMPLANTED PORT, DIABETES,HYPERLIPIDEMA,HYPERTENSION [id number] 10/17/2014 13:56:00 12/04/2014 00:01:00 DIS Outpatient BRENDAN SPENCER [facility] IMPLANTED PORT, DIABETES,HYPERLIPIDEMA,HYPERTENSION [id number] 05/16/2014 08:52:00 08/14/2014 00:01:00 DIS Outpatient BRENDAN SPENCER Via [facility] IMPLANTED PORT, DIABETES,HYPERLIPIDEMA,HYPERTENSION [id number] 06/16/2014 08:50:00 06/16/2014 12:15:00 DIS Outpatient LISSA GENAO MD [facility] HX POLYPS [id number] 06/15/2014 06:08:00 06/15/2014 23:59:59 CLS Outpatient LISSA GENAO MD [facility] PREOP HX POLYPS [id number] 01/10/2014 13:05:00 02/20/2014 00:01:00 DIS Outpatient BRENDAN SPENCER [facility] IMPLANTED PORT [id number] 02/07/2014 10:30:00 02/07/2014 23:59:59 CLS Preadmit DEANGELO FOSTER MD Via [facility] DSME DM 2 [id number] 11/08/2013 10:30:00 02/06/2014 00:01:00 DIS Outpatient DEANGELO FOSTER MD [facility] DSME DM 2 [id number] 10/11/2013 12:52:00 10/17/2013 00:01:00 DIS Outpatient DEANGELO FOSTER MD [facility] IMPLANTED PORT [id number] 09/27/2013 09:21:00 09/27/2013 23:59:59 CLS Outpatient BRENDAN SPENCER [facility] LAB HYPERLIPADEMIA [id number] 06/06/2013 19:36:00 06/06/2013 23:59:59 CLS Outpatient DEANGELO FOSTER MD [facility] LAB WEAKNESS,CONFUSION, HTN,DM [id number] 05/25/2013 11:30:00 06/05/2013 00:01:00 DIS Outpatient DEANGELO FOSTER MD [facility] IMPLANTED PORT [id number] 01/13/2013 10:40:00 01/30/2013 00:01:00 DIS Outpatient BRENDAN SPENCER [facility] PORT FLUSH [id number] 01/13/2013 10:28:00 01/13/2013 23:59:59 CLS Outpatient DEANGELO FOSTER MD [facility] LAB HTN,HYPERLIPADEMIA [id number] 01/05/2013 17:44:00 01/05/2013 23:59:59 CLS Outpatient [id number] 09/20/2012 15:05:00 10/06/2012 00:01:00 DIS Outpatient DEANGELO FOSTER MD [facility] PORT FLUSH [id number] 07/08/2012 08:02:00 07/08/2012 23:59:59 CLS Outpatient BRENDAN SPENCER [facility] LAB HTN,CUSTODIAL MED USE [id number] 07/13/2018 09:40:00 PEN Preadmit CHRISTINE COLLADO DO [facility] ENDO BLOOD IN STOOL/GERD [id number] 02/15/2014 16:02:00 Document Registration [id number] 01/31/2013 00:00:00 Document Registration [id number] 04/28/2012 08:31:00 Document Registration [id number] 2012 15:43:00 Document Registration [id number] 02/07/2012 17:15:00 Document Registration [id number] 01/13/2012 11:30:00 Document Registration [id number] 12/10/2011 09:50:00 Document Registration [id number] 12/10/2011 09:25:00 Document Registration [id number] 11/13/2011 15:20:00 Document Registration [id number] 11/06/2011 18:25:00 Document Registration [id number] 10/13/2011 10:28:00 Document Registration [id number] 09/15/2011 08:38:00 Document Registration [id number] 09/15/2011 06:38:00 Document Registration [id number] 09/12/2011 13:14:00 Document Registration [id number] 09/01/2011 15:30:00 Document Registration [id number] 08/27/2011 14:21:00 Document Registration [id number] 08/12/2011 09:31:00 Document Registration [id number] 08/05/2011 09:24:00 Document Registration [id number] 07/30/2011 15:25:00 Document Registration [id number] 07/13/2011 01:30:00 Document Registration [id number] 07/04/2011 12:47:00 Document Registration [id number] 06/29/2011 15:20:00 Document Registration [id number] 02/19/2011 09:27:00 Document Registration [id number] 09/26/2010 10:20:00 Document Registration [id number] 09/23/2010 05:47:00 Document Registration [id number] 09/16/2010 10:01:00 Document Registration [id number] 08/07/2010 09:37:00 Document Registration [id number] 06/20/2010 07:49:00 Document Registration [id number] 12/05/2014 10:50:41 ACT Document Registration
[2018-07-13] MEDS ORDERED: LACTATED RINGERS 1,000 ML IV STA (08:33)
[2018-07-13] MEDS ORDERED: PROPOFOL INJECTION 50 ML IV ONE (08:40)
[2018-07-13] MEDS ORDERED: HURRICAINE EXT TUBE (BENZOCAINE) XX PRN (08:45)
[2018-07-13 08:50] VITALS: BP 125/60
--- NOTE | 2018-07-13 08:50 | Progress Note-Pre Operative ---
Pre-Operative Progress Note H&P Reviewed The H&P was reviewed, patient examined and no changes noted. Date Seen by Provider: July 13, 2018 Time Seen by Provider: 08:46 Date H&P Reviewed: July 13, 2018 Time H&P Reviewed: 08:46 Pre-Operative Diagnosis: hematochezia, gerd, b/l lower qaudrant abd pain. CHRISTINE COLLADO DO July 13, 2018 08:50
--- NOTE | 2018-07-13 09:54 | Progress Note-Post Operative ---
Post-Operative Progess Note Surgeon (s)/Machine Cloth Measurer (s) Surgeon CHRISTINE COLLADO DO Machine Cloth Measurer: na Pre-Operative Diagnosis hematochezia, gerd, b/l lower qaudrant abd pain. Post-Operative Diagnosis hiatal hernia,cecal polyp, rectal and descending colon polyps Procedure & Operative Findings Date of Procedure 07/13/18 Procedure Performed/Findings egd c biopsies, colonoscopy with hot bx polypectomy x 2 and snare polypectomy x1 Anesthesia Type per medical insurance coder Estimated Blood Loss Estimated blood loss (mL): scant Specimens/Packing Specimens Removed cecum, descending, rectal polyps/antrum, ge junction CHRISTINE COLLADO DO July 13, 2018 09:54
--- NOTE | 2018-07-13 09:55 | Discharge Inst-Simple/Standard ---
Discharge Inst-Standard Patient Instructions/Follow Up Plan of Care/Instructions/FU: 2 weeks Gene Activity as Tolerated: Yes Discharge Diet: Regular Diet CHRISTINE COLLADO DO July 13, 2018 09:55
[2018-07-13 10:00] VITALS: BP 99/51
[2018-07-13] MEDS ORDERED: HURRICAINE EXT TUBE (BENZOCAINE) ONE (10:06)
[2018-07-13 10:30] VITALS: BP 138/72
[2018-07-13 10:50] VITALS: BP 138/72
--- NOTE | 2018-07-13 12:11 | Anesthesia-General Post-Op ---
MAC Patient Condition Mental Status/LOC: Same as Preop Cardiovascular: Satisfactory Nausea/Vomiting: Absent Respiratory: Satisfactory Pain: Controlled Complications: Absent Post Op Complications Complications None Follow Up Care/Instructions Patient Instructions None needed. Anesthesiology Discharge Order Discharge Order Patient is doing well, no complaints, stable vital signs, no apparent adverse anesthesia problems. No complications reported per nursing. KALA KEN CRNA July 13, 2018 12:11
--- NOTE | 2018-07-13 15:32 | OPERATIVE REPORT ---
DATE OF SERVICE: 07/13/2018 PREOPERATIVE DIAGNOSES: Hematochezia, gastroesophageal reflux disease, bilateral lower quadrant abdominal pain. POSTOPERATIVE DIAGNOSES: Hiatal hernia, cecal polyp, descending colon polyp and rectal polyp. PROCEDURES: EGD with biopsies, colonoscopy with hot biopsy polypectomy x2 and snare polypectomy x1. SURGEON: Christine Mills DO ANESTHESIA: Per FIELD INTERVIEWER. ESTIMATED BLOOD LOSS: Scant. COMPLICATIONS: None. INDICATIONS: The patient is an 83-year-old female, who has been having hematochezia and GERD, some slight bilateral lower quadrant abdominal pain. She was recommended to have EGD and colonoscopy for further evaluation. She understands risks and benefits of procedure and wished to proceed with procedures. Consent was signed and on the chart. PROCEDURE IN DETAIL: The patient was taken to the endoscopy suite, placed in the left lateral recumbent position. Timeout was performed. Scope was inserted into the mouth, down the esophagus, stomach and into the duodenum without difficulty. There were no polyps, masses or ulceration in the duodenum. Scope was then slowly retracted back into the stomach where it was further insufflated. No polyps, masses or ulcerations. Biopsy of the antrum was obtained. No other pathology was noted. Scope was retroflexed noting a hiatal hernia. No polyps, masses or ulcerations. The scope was returned to its normal position, slowly withdrawn to the distal esophagus. Some slight erythematous changes. Biopsy obtained at the GE junction. Scope was then slowly retracted back until completely removed, noting no other pathology. Digital rectal exam was performed. There were no palpable polyps, masses or ulcerations. The scope was inserted into the rectum and advanced all the way to the cecum with minimal difficulty. Prep was adequate with irrigation and suction. In the cecum, a little larger polyp was present, which hot biopsy polypectomy was performed. Multiple bites of this were obtained. Scope was then slowly retracted back. There were no polyps, masses or ulcerations of the ascending colon, transverse colon. In the descending colon, a small polyp was present, which hot biopsy polypectomy was performed. Scope was continued to be slowly retracted back. There were no polyps, masses or ulcerations within the sigmoid colon, a minimal amount of diverticulosis was present. Scope was continuously retracted back into the rectum where a larger polyp was present, which snare polypectomy was performed. Scope was retroflexed noting no other pathology. Scope was returned to its normal position, slowly withdrawn until completely removed. The patient tolerated procedure well without any complications. She is in recovery room in stable condition. RECOMMENDATIONS: The patient would likely benefit from repeat colonoscopy in one year for reevaluation with taking into account risks versus benefits. Job ID: [id number] DocumentID: [id number] Dictated Date: 07/13/2018 10:05:07 Car Mechanic Date: 07/13/2018 15:32:17 Dictated By: CHRISTINE MILLS DO
== END 2018-07-13 10:50 | disposition home or self-care (01) ==
LOC: ENDO 08:25
PROVIDERS: ATTEND Surgery
DX: D12.0 Benign neoplasm of cecum (principal); D12.4 Benign neoplasm of descending colon; D12.8 Benign neoplasm of rectum; K21.9 Gastro-esophageal reflux disease without esophagitis; K44.9 Diaphragmatic hernia without obstruction or gangrene; K92.1 Melena; I10 Essential (primary) hypertension; E11.9 Type 2 diabetes mellitus without complications; Z87.891 Personal history of nicotine dependence; Z79.4 Long term (current) use of insulin; Z79.899 Other long term (current) drug therapy
CPT/HCPCS: 82962

== ENCOUNTER 2018-12-29 15:35 | Outpatient (CLI) | payer MEDICARE, OTHER ==
[~2018-12-29] VITALS: Ht 172.7 cm; Wt 92.7 kg
[~2018-12-29 15:35] MED LIST changes: -OMEP20CA12 PO; +OMEP20CA13 PO
[2018-12-29] MEDS ORDERED: HYDR-3820 PO (15:43)
[2018-12-29] MEDS ORDERED: INSU200I4 SQ (15:43)
[2018-12-29] MEDS ORDERED: GABA-486 PO (15:43)
== END 2018-12-29 15:46 | disposition home or self-care (01) ==
LOC: PREOP 15:35
PROVIDERS: ATTEND Specialist
DX: Z01.818 Encounter for other preprocedural examination (principal)

== ENCOUNTER 2019-01-05 07:35 | Day surgery (SDC) | payer MEDICARE, OTHER ==
[~2019-01-05] VITALS: Ht 172.7 cm; Wt 92.7 kg
[~2019-01-05 07:35] MED LIST changes: +INSU200I4 SQ
[2019-01-05] MEDS: TETRACAINE 0.5% OPHTH SOLN 4 ML BTL (SINGLE DOSE ONLY) OU PRN ×4 (08:38→08:57)
[2019-01-05] MEDS ORDERED: TIMOLOL MALEATE 0.5% 5 ML (TIMOPTIC) BTL OU PRN (08:45)
[2019-01-05] MEDS ORDERED: POVIDONE (BETADINE) OPHTH SOLN 5% 30 ML OP ONE (08:45)
[2019-01-05] MEDS ORDERED: LIDOCAINE PF 1% 2 ML AMP IR PRN (08:45)
[2019-01-05] MEDS ORDERED: MOXIFLOXACIN OPHTH SOLN 5 MG/ML 0.3 ML SYRINGE OP ONE (08:45)
[2019-01-05] MEDS: PHENYLEPHRINE 10% OPHTH (NEO-SYN) 5 ML BTL OU SCH ×3 (08:47→08:57)
[2019-01-05] MEDS: CYCLOPENTOLATE 1% (CYCLOGYL) 2 ML DROPS OP SCH ×3 (08:47→08:57)
[2019-01-05 08:55] VITALS: BP 122/75
[2019-01-05] MEDS ORDERED: acetaZOLAMIDE ER 500 MG CAP (DIAMOX SEQUELS) PO ONE (09:30)
[2019-01-05] MEDS ORDERED: MIDAZOLAM 2 MG/2 ML (VERSED) VIAL ONE (09:56)
--- NOTE | 2019-01-05 10:06 | Ophthalmologist Pre-Op Note ---
Pre-Operative Progress Note H&P Reviewed The H&P was reviewed, patient examined and no changes noted. Date H&P Reviewed: Jan 05, 2019 Time H&P Reviewed: 10:06 Pre-Op Dx Cataract, Left Eye DANIELLE HYUNH MD Jan 05, 2019 10:06 POS
--- NOTE | 2019-01-05 10:35 | Ophthalmology Operative Report ---
Cataract removal/placement IOL PREOPERATIVE DIAGNOSIS: Cataract Left Eye POSTOPERATIVE DIAGNOSIS: Cataract Left Eye PROCEDURE: Cataract removal and placement of posterior chamber implant, left eye SURGEON: Elio Huynh ANESTHESIA: Topical with sedation COMPLICATIONS: None ESTIMATED BLOOD LOSS: Minimal DESCRIPTION OF PROCEDURE: After proper informed consent was obtained, the patient, a 83 female, was taken to the Operating Room and the left eye was anesthetized with tetracaine. The left eye was then prepped and draped in the usual manner. A wire lid speculum was placed. A paracentesis was made at the left hand position. Preservative free lidocaine was injected into the anterior chamber followed by viscoelastic. A clear corneal incision was made in the temporal position. A capsulorrhexis was preformed and the central nuclear and cortical material were removed. The posterior capsule was polished and an Fidel 20.5 AU00T0 was placed into the capsular bag. The residual viscoelastic was aspirated and balanced saline solution was injected into the anterior chamber. Moxifloxacin was injected into the anterior chamber. The wound was checked and found to be water tight. The patient tolerated the procedure well without complications. ELIO HUYNH MD Jan 05, 2019 10:35 POS
[2019-01-05 10:43] VITALS: BP 110/72
== END 2019-01-05 10:43 | disposition home or self-care (01) ==
LOC: SDC 07:35
PROVIDERS: ATTEND Specialist
DX: H25.12 Age-related nuclear cataract, left eye (principal); I10 Essential (primary) hypertension; E78.5 Hyperlipidemia, unspecified; E11.9 Type 2 diabetes mellitus without complications; K21.9 Gastro-esophageal reflux disease without esophagitis; Z79.4 Long term (current) use of insulin; Z79.899 Other long term (current) drug therapy; Z90.710 Acquired absence of both cervix and uterus; Z96.641 Presence of right artificial hip joint; Z96.642 Presence of left artificial hip joint

== ENCOUNTER 2019-01-18 05:34 | Outpatient (CLI) | payer MEDICARE ==
[~2019-01-18] VITALS: Ht 172.7 cm; Wt 92.7 kg
== END 2019-01-18 10:14 | disposition home or self-care (01) ==
LOC: PREOP 05:34
PROVIDERS: ATTEND Specialist
DX: Z01.818 Encounter for other preprocedural examination (principal)

== ENCOUNTER 2019-01-21 07:41 | Day surgery (SDC) | payer MEDICARE ==
[~2019-01-21] VITALS: Ht 172.7 cm; Wt 92.7 kg
[2019-01-21 08:05] VITALS: BP 118/77
[2019-01-21] MEDS: TETRACAINE 0.5% OPHTH SOLN 4 ML BTL (SINGLE DOSE ONLY) OU PRN ×4 (08:10→08:31)
[2019-01-21] MEDS ORDERED: MOXIFLOXACIN OPHTH SOLN 5 MG/ML 0.3 ML SYRINGE OP ONE (08:15)
[2019-01-21] MEDS ORDERED: POVIDONE (BETADINE) OPHTH SOLN 5% 30 ML OP ONE (08:15)
[2019-01-21] MEDS ORDERED: TIMOLOL MALEATE 0.5% 5 ML (TIMOPTIC) BTL OU PRN (08:15)
[2019-01-21] MEDS ORDERED: LIDOCAINE PF 1% 2 ML AMP IR PRN (08:15)
[2019-01-21] MEDS: CYCLOPENTOLATE 1% (CYCLOGYL) 2 ML DROPS OP SCH ×3 (08:21→08:32)
[2019-01-21] MEDS: PHENYLEPHRINE 10% OPHTH (NEO-SYN) 5 ML BTL OU SCH ×3 (08:21→08:32)
[2019-01-21] MEDS ORDERED: MIDAZOLAM 2 MG/2 ML (VERSED) VIAL ONE (08:56)
--- NOTE | 2019-01-21 09:12 | Ophthalmologist Pre-Op Note ---
Pre-Operative Progress Note H&P Reviewed The H&P was reviewed, patient examined and no changes noted. Date H&P Reviewed: Jan 21, 2019 Time H&P Reviewed: 09:12 Pre-Op Dx Cataract, Right Eye DANIELLE HUYNH MD Jan 21, 2019 09:12 POS
[2019-01-21] MEDS ORDERED: acetaZOLAMIDE ER 500 MG CAP (DIAMOX SEQUELS) PO ONE (09:30)
--- NOTE | 2019-01-21 09:31 | Ophthalmology Operative Report ---
Cataract removal/placement IOL PREOPERATIVE DIAGNOSIS: Cataract Right Eye POSTOPERATIVE DIAGNOSIS: Cataract Right Eye PROCEDURE: Cataract removal and placement of posterior chamber implant, right eye SURGEON: Elio Huynh ANESTHESIA: Topical with sedation COMPLICATIONS: None ESTIMATED BLOOD LOSS: Minimal DESCRIPTION OF PROCEDURE: After proper informed consent was obtained, the patient, a 83 female, was taken to the Operating Room and the right eye was anesthetized with tetracaine. The right eye was then prepped and draped in the usual manner. A wire lid speculum was placed. A paracentesis was made at the left hand position. Preservative free lidocaine was injected into the anterior chamber followed by viscoelastic. A clear corneal incision was made in the temporal position. A capsulorrhexis was preformed and the central nuclear and cortical material were removed. The posterior capsule was polished and Fidel 20.5 AU00T0 IOL was placed into the capsular bag. The residual viscoelastic was aspirated and balanced saline solution was injected into the anterior chamber. Moxifloxacin was injected into the anterior chamber. The wound was checked and found to be water tight. The patient tolerated the procedure well without complications. ELIO HUYNH MD Jan 21, 2019 09:31 POS
[2019-01-21 09:45] VITALS: BP 125/71
--- NOTE | 2019-01-21 13:06 | Anesthesia-General Post-Op ---
MAC Patient Condition Mental Status/LOC: Same as Preop Cardiovascular: Satisfactory Nausea/Vomiting: Absent Respiratory: Satisfactory Pain: Controlled Complications: Absent Post Op Complications Complications None Follow Up Care/Instructions Patient Instructions None needed. Anesthesiology Discharge Order Discharge Order Patient is doing well, no complaints, stable vital signs, no apparent adverse anesthesia problems. No complications reported per nursing. KALA KEN CRNA Jan 21, 2019 13:06 POS
== END 2019-01-21 09:45 | disposition home or self-care (01) ==
LOC: SDC 07:41
PROVIDERS: ATTEND Specialist
DX: E11.36 Type 2 diabetes mellitus with diabetic cataract (principal); H25.11 Age-related nuclear cataract, right eye; K21.9 Gastro-esophageal reflux disease without esophagitis; I10 Essential (primary) hypertension; Z79.4 Long term (current) use of insulin; Z87.891 Personal history of nicotine dependence; Z96.643 Presence of artificial hip joint, bilateral; Z90.710 Acquired absence of both cervix and uterus; Z79.899 Other long term (current) drug therapy
CPT/HCPCS: 82962

== ENCOUNTER 2019-07-25 10:05 | Outpatient (RCR) | payer MEDICARE, OTHER ==
[2019-07-18] MEDS: FERRIC CARBOXYMALTOSE INJ 750 MG in NS (IVPB) 250 ML IV SCH (13:27)
[2019-07-18 15:00] VITALS: BP 123/73
[~2019-07-25] VITALS: Ht 172.7 cm; Wt 92.7 kg
[~2019-07-25 10:05] MED LIST changes: +ACHYD1T PO; -HYDR-3820 PO; -OMEP20CA13 PO; +OMEP20CA18 PO; +SIMV20TA26 PO
[2019-07-25] MEDS: FERRIC CARBOXYMALTOSE INJ 750 MG in NS (IVPB) 250 ML IV SCH (13:29)
[2019-07-25 13:39] VITALS: BP 129/63
== END 2019-07-25 13:55 | disposition home or self-care (01) ==
LOC: SDC 10:05
PROVIDERS: ATTEND Nurse Practitioner Family
DX: D64.9 Anemia, unspecified (principal)
CPT/HCPCS: 96365; 96366

== ENCOUNTER 2019-11-10 05:40 | Outpatient (CLI) | payer MEDICARE ==
[~2019-11-10] VITALS: Ht 172.7 cm; Wt 92.7 kg
[2019-11-10] MEDS ORDERED: POTA10CA43 PO (11:24)
== END 2019-11-10 11:38 ==
LOC: PREOP 05:40
PROVIDERS: ATTEND Orthopaedic Surgery
DX: Z01.818 Encounter for other preprocedural examination (principal)

== ENCOUNTER 2019-11-16 06:07 | Day surgery (SDC) | payer MEDICARE, OTHER ==
--- NOTE | 2019-11-07 12:09 | HISTORY AND PHYSICAL ---
DATE OF SERVICE: This will be for outpatient surgery on 11/16/2019 for right knee arthroscopy. HISTORY OF PRESENT ILLNESS: The patient is an 84-year-old female with progressively worsening right medial knee pain. She has undergone treatment with injections, which provided temporary relief of her symptoms, but her symptoms recurred. She reports pain primarily medially, but does have some lateral pain. She ambulates with a cane because of the knee, radiographs revealed mild medial patellofemoral joint space narrowing due to functional impairment and failure to improve with conservative measures, the patient elected to proceed with surgical intervention. REVIEW OF SYSTEMS: No chest pain, no shortness of breath, no dysuria. PAST MEDICAL HISTORY: Anxiety disorder, depression, diabetes, hypertension, insomnia. PAST SURGICAL HISTORY: Hysterectomy, right wrist, cerebral aneurysm, bilateral total hip arthroplasty, bladder suspension, rectocele. FAMILY HISTORY: Significant for ischemic heart disease. PRIMARY CARE PROVIDER: Dr. Figueroa. MEDICATIONS: Omeprazole, simvastatin, Flonase, escitalopram, glipizide, hydrocodone, carvedilol, furosemide, gabapentin, potassium. ALLERGIES: No known drug allergies. SOCIAL HISTORY: The patient is a former smoker. Denies alcohol use. PHYSICAL EXAMINATION: GENERAL: The patient is well-developed, well-nourished, in no acute distress. HEENT: Normocephalic, atraumatic. Pupils are equal, round, reactive to light. Oropharynx is clear. NECK: Supple, no lymphadenopathy. LUNGS: Clear to auscultation bilaterally. HEART: Regular rate and rhythm. ABDOMEN: Soft, nontender, nondistended. EXTREMITIES: The right knee demonstrates minimal effusion. She is tender along the medial joint line as well as her lateral joint line. She has pain medially and laterally with Leroy's. There is no varus valgus laxity. Negative anterior and posterior drawer. She ambulates with an antalgic gait using a cane. 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 PLAN: Right knee arthroscopy, partial meniscectomy and chondroplasty. The risks, benefits, options, ramifications and recovery were discussed at length with the patient. She understands and wishes to proceed. Job ID: [id number] DocumentID: [id number] Dictated Date: 11/07/2019 11:13:24 Shell Press Operator Date: 11/07/2019 12:09:37 Dictated By: KAROLINE BAILEY MD
[~2019-11-16] VITALS: Ht 172.7 cm; Wt 89.0 kg
[2019-11-16] VITALS (12 sets, daily range): BP systolic 91–153; BP diastolic 57–100
[~2019-11-16 06:07] MED LIST changes: +POTA10CA43 PO
[2019-11-16] MEDS ORDERED: LACTATED RINGERS 1,000 ML IV PRN (06:27)
[2019-11-16] MEDS ORDERED: ceFAZolin INJECTION 1,000 MG in WATER (STERILE) FOR INJECTION 10 ML IV ONE (06:30)
[2019-11-16] MEDS ORDERED: CATHETER FLUSH 10 ML SYR IV PRN (07:00)
[2019-11-16] MEDS ORDERED: BUPIVACAINE 0.25% 30 ML (SENSORCAINE) VIAL ONE (07:02)
[2019-11-16] MEDS ORDERED: morphine PF (DURAMORPH) 10 MG/10 ML AMP ONE (07:02)
[2019-11-16] MEDS ORDERED: fentaNYL INJECTION 100 MCG/2 ML AMP ONE (07:03)
[2019-11-16] MEDS ORDERED: proPOfol 200 MG/20 ML (DIPRIVAN) VIAL IV ONE (07:03)
[2019-11-16] MEDS ORDERED: ONDANSETRON 4 MG/2 ML (SDV) Z0FRAN ONE (07:03)
[2019-11-16] MEDS ORDERED: SEVOFLURANE (ULTANE) 15 ML INHAL SOLN ONE (07:03)
[2019-11-16] MEDS ORDERED: LIDOCAINE PF 2% 5 ML (XYLOCAINE) VIAL ONE (07:03)
--- NOTE | 2019-11-16 07:29 | Progress Note-Pre Operative ---
Pre-Operative Progress Note H&P Reviewed The H&P was reviewed, patient examined and no changes noted. Date Seen by Provider: Nov 16, 2019 Time Seen by Provider: 07:20 Date H&P Reviewed: Nov 16, 2019 Time H&P Reviewed: 07:11 Pre-Operative Diagnosis: right knee medial and lateral meniscus tears and chondromalacia KAROLINE BAILEY MD Nov 16, 2019 07:29
[2019-11-16] MEDS ORDERED: oxyCODONE/APAP 5/325MG (PERCOCET 5) TABLET PO PRN (07:30)
--- NOTE | 2019-11-16 07:31 | Progress Note-Post Operative ---
Post-Operative Progess Note Surgeon (s)/Nutrition Professor (s) Surgeon KAROLINE BAILEY MD Nutrition Professor: Winston Cosby Pre-Operative Diagnosis right knee medial and lateral meniscus tears and chondromalacia Post-Operative Diagnosis right knee medial and lateral meniscus tears and chondromalacia of the medial femoral condyle and patella Procedure & Operative Findings Date of Procedure 11/16/19 Procedure Performed/Findings right knee arthroscopic partial medial and lateral meniscectomies and chondroplasty of the medial femoral condyle and patella Anesthesia Type GETA Estimated Blood Loss Estimated blood loss (mL): minimal Specimens/Packing Specimens Removed none Packing: none KAROLINE BAILEY MD Nov 16, 2019 07:31
[2019-11-16] MEDS ORDERED: morphine INJ 4 MG/ML 1 ML (VIAL/SYRINGE) ONE (08:28)
[2019-11-16] MEDS ORDERED: ONDANSETRON 4 MG/2 ML (SDV) Z0FRAN IVP PRN (08:30)
[2019-11-16] MEDS ORDERED: morphine INJ 10 MG/ML 1ML (SYR OR VIAL) IVP ONE (08:30)
--- NOTE | 2019-11-16 08:51 | OPERATIVE REPORT ---
DATE OF SERVICE: 11/16/2019 PREOPERATIVE DIAGNOSES: 1. Right knee medial meniscus tear. 2. Right knee lateral meniscus tear. 3. Right knee chondromalacia of the medial femoral condyle. 4. Right knee chondromalacia of the patella. POSTOPERATIVE DIAGNOSES: 1. Right knee medial meniscus tear. 2. Right knee lateral meniscus tear. 3. Right knee chondromalacia of the medial femoral condyle. 4. Right knee chondromalacia of the patella. PROCEDURES PERFORMED: 1. Right knee arthroscopic partial medial meniscectomy. 2. Right knee arthroscopic partial lateral meniscectomy. 3. Right knee arthroscopic chondroplasty of the medial femoral condyle. 4. Right knee arthroscopic chondroplasty of the patella. SURGEON: Willy Bailey MD. DINKEY BRAKEMAN: Winston Cosby, who assisted throughout the procedure and closed the incisions. ANESTHESIA: General endotracheal by Car Hernandez DO. TOURNIQUET TIME: Not applicable. ESTIMATED BLOOD LOSS: Minimal. DRAINS: None. COMPLICATIONS: None. POSTOPERATIVE PLAN: Routine arthroscopy protocol. The patient was transferred to the recovery room awake and in stable condition. STATEMENT OF MEDICAL NECESSITY: The patient is an 84-year-old female with complaints of the right medial and lateral knee pain, catching, locking and swelling. She has large effusions. She had tried rest, activity modifications and injections without relief. She reported functional impairment. Radiographs revealed moderate degenerative changes. The patient understood that an arthroscopy would help with her mechanical symptoms, but would not cure her arthritic symptoms. Due to functional impairment and failure to improve with conservative measures, the patient elected to proceed with surgical intervention. Examination under anesthesia revealed range of motion of 0/3/130 with negative Santi, negative anterior and posterior drawer. No varus valgus laxity, negative pivot shift. ARTHROSCOPIC FINDINGS: The patella demonstrated grade II chondral flaps inferiorly in a 10 x 10 area. Trochlea demonstrated no significant chondral pathology. The medial and lateral gutters were clear. ACL and PCL were intact. The medial compartment demonstrated grade II chondral flaps of the central portion of the femoral condyle and a 10 x 10 area of the posterior horn of the medial meniscus demonstrated a horizontal cleavage tear involving approximately one third of the posterior horn. The lateral compartment demonstrated grade IV chondral loss on the tibial plateau and femoral condyle and adjacent 10 x 10 areas with a degenerative tear of the posterior horn of the medial meniscus involving approximately one-third of the posterior horn. DESCRIPTION OF PROCEDURE: After the risks and benefits of the procedure were discussed and questions were answered, an informed consent was signed and placed on chart, the operative site was confirmed and prepped in normal initialed by the surgeon. The patient was then transferred to the operating room. After adequate levels of general endotracheal anesthetic were obtained, a timeout was called, confirming the operative site. Examination under anesthesia was performed with the above findings noted. The right lower extremity was prepped and draped in the usual sterile fashion. The knee joint was injected with 60 mL of fluid and standard lateral portal was placed with the arthroscope under direct visualization, inferior medial portal was created, the menisci and cruciates carefully probed with the above findings noted. The unstable chondral flaps on the medial femoral condyle were debrided with shaver back to a stable edge. Posterior horn of the medial meniscus was debrided with biter and shaver back to a stable edge. This was carefully probed with no further tearing or instability noted. The scope was redirected into the lateral compartment of the knee, the unstable lateral meniscus tear was debrided with a shaver back to a stable edge. Scope was redirected into the patellofemoral joint space with unstable chondral flaps on the patella were debrided with shaver back to a stable edge. The knee was copiously irrigated. Portal sites were closed with 4-0 nylon in a subcuticular fashion. Knee was injected with Duramorph. Portal sites were infiltrated with plain Marcaine. A soft dressing was applied. The patient was transferred to the recovery room in awake and in stable condition. Job ID: [id number] DocumentID: [id number] Dictated Date: 11/16/2019 08:17:06 Neuropsychiatric Aide Date: 11/16/2019 08:50:46 Dictated By: WILLY BAILEY MD
[2019-11-16] MEDS ORDERED: OXYC-471 PO (09:20)
--- NOTE | 2019-11-16 09:21 | Anesthesia-General Post-Op ---
General Patient Condition Mental Status/LOC: Same as Preop Cardiovascular: Satisfactory Nausea/Vomiting: Absent Respiratory: Satisfactory Pain: Controlled Complications: Absent Post Op Complications Complications None Follow Up Care/Instructions Patient Instructions None needed. Anesthesia/Patient Condition Patient Condition Patient is doing well, no complaints, stable vital signs, no apparent adverse anesthesia problems. RYAN RUEDA DO Nov 16, 2019 09:21
--- NOTE | 2019-11-16 10:29 | Physical Therapy Ortho Eval ---
PT Orthopedic Evaluation Type of Surgery Knee Scope (right) Prior Level of Function Current Living Status: Other Family Locomotion (Upon Admit): Straight Cane Established Durable Medical Eq: Front Wheeled Walker, Straight Cane Subjective Subjective Agrees to PT. Reports she has a walker at home. Daughter lives with ehr and can assist as needed. Entry Into Home: Stairs With Railing (2) ROM ROM: WFL, except focal deficit (right knee flexion limited post surgery) Strength Strength: WFL Transfer Transfers (B, C, W/C) (FIM): 5 (6 post treatment) Gait Gait Assistive Device: FWW Right Lower Extremity: Right Weight Bearing Status RLE: Weight Bearing/Tolerated Left Lower Extremity: Left Weight Bearing Status LLE: Full Weight Bearing Functional gait training with instruction on WBAT and progression to cane as she feels comfortable. Step training as well. Pt and daughter verbalized understanding. Pt demo understanding. Gait (FIM): 4 (6 post treatment) Distance (FIM): 3=150 ft Treatment Rendered Treatment: Therapeutic Exercises, Gait Train, Step Train Exercise Instruction: Quad Sets, Straight Leg Raise, Heel Slides provided pics of HEP Assessment/Goals Goal Time Frame: 1 Visit Understands HEP: Yes Safe Ambulation: Yes Plan Treatment Plan: Discharge PT/Family Agrees to Plan: Yes Time Time In: 1000 Time Out: 1018 Total Billed Treatment Time: 18 Billed Treatment Time visit EVM 18 DMITRY REED PT Nov 16, 2019 10:29
== END 2019-11-16 10:20 | disposition home or self-care (01) ==
LOC: SDC 06:07
PROVIDERS: ATTEND Orthopaedic Surgery
DX: M23.221 Derangement of posterior horn of medial meniscus due to old tear or injury, right knee (principal); M23.200 Derangement of unspecified lateral meniscus due to old tear or injury, right knee; F41.9 Anxiety disorder, unspecified; F32.9 Major depressive disorder, single episode, unspecified; E11.9 Type 2 diabetes mellitus without complications; I10 Essential (primary) hypertension; G47.00 Insomnia, unspecified; M06.9 Rheumatoid arthritis, unspecified; E78.5 Hyperlipidemia, unspecified; K21.9 Gastro-esophageal reflux disease without esophagitis; Z79.84 Long term (current) use of oral hypoglycemic drugs; Z79.899 Other long term (current) drug therapy; Z87.891 Personal history of nicotine dependence; Z99.81 Dependence on supplemental oxygen; Z96.643 Presence of artificial hip joint, bilateral; Z11.2 Encounter for screening for other bacterial diseases
CPT/HCPCS: 82962; 87081

== ENCOUNTER → 2019-12-20 | Outpatient (CLI) | payer MEDICARE ==
[~2019-12-20] MED LIST changes: +OXYC-471 PO
== END ==
LOC: LABNPT 07:47
PROVIDERS: ATTEND Family Medicine
DX: R05 Cough (principal); R06.02 Shortness of breath; Z20.828 Contact with and (suspected) exposure to other viral communicable diseases
CPT/HCPCS: 87804; U0002; 87635

== ENCOUNTER 2020-05-02 15:37 | Inpatient (IN) | payer MEDICARE ==
[~2020-05-02] VITALS: Ht 173 cm; Wt 96.5 kg
[~2020-05-02 15:37] MED LIST changes: +AMLO-251 PO; -AMLO10TA7 PO; +ESCI-2 PO; -ESCI10TA55 PO; +ESCI20TA39 PO; -ESCI20TA45 PO; -OXYC-471 PO; +OXYC1TAB11 PO
[2020-05-02 16:23] VITALS: BP 147/65
[2020-05-02] MEDS ORDERED: CATHETER FLUSH 10 ML SYR IV PRN (16:30)
[2020-05-02] MEDS: cefTRIAXone FOR IV USE 1,000 MG in WATER (STERILE) FOR INJECTION 10 ML IV SCH (16:52)
[2020-05-02 17:08] LABS: BASOPHILS % (AUTO) 1 % (0-10); EOSINOPHILS # (AUTO) 0.1 10^3/uL (0.0-0.3); EOSINOPHILS % (AUTO) 1 % (0-10); HEMATOCRIT 44 % (35-52); HEMOGLOBIN 13.4 g/dL (11.5-16.0); LYMPHOCYTES # (AUTO) 1.4 10^3/uL (1.0-4.0); LYMPHOCYTES % (AUTO) 16 % (12-44); MEAN CORPUSCULAR HEMOGLOBIN 30 pg (25-34); MEAN CORPUSCULAR HGB CONC 31 g/dL (32-36); MEAN CORPUSCULAR VOLUME 98 fL (80-99); MEAN PLATELET VOLUME 10.6 fL (9.0-12.2); MONOCYTES # (AUTO) 0.6 10^3/uL (0.0-1.0); MONOCYTES % (AUTO) 7 % (0-12); NEUTROPHILS # (AUTO) 6.4 10^3/uL (1.8-7.8); NEUTROPHILS % (AUTO) 74 % (42-75); PLATELET COUNT 201 10^3/uL (130-400); WHITE BLOOD COUNT 8.6 10^3/uL (4.3-11.0)
[2020-05-02 17:18] LABS: ALBUMIN 4.2 GM/DL (3.2-4.5)
[2020-05-02 17:19] LABS: CHLORIDE 97 MMOL/L (98-107); POTASSIUM 4.3 MMOL/L (3.6-5.0); SODIUM 140 MMOL/L (135-145)
[2020-05-02 17:20] LABS: CALCIUM 9.2 MG/DL (8.5-10.1)
[2020-05-02 17:21] LABS: GLUCOSE 158 MG/DL (70-105); TOTAL PROTEIN 8.7 GM/DL (6.4-8.2)
[2020-05-02 17:22] LABS: CARBON DIOXIDE 31 MMOL/L (21-32)
[2020-05-02 17:23] LABS: BILIRUBIN,TOTAL 0.5 MG/DL (0.1-1.0)
[2020-05-02 17:24] LABS: ALKALINE PHOSPHATASE 132 U/L (40-136)
[2020-05-02 17:25] LABS: CREATININE SERUM 0.86 MG/DL (0.60-1.30); GFR ESTIMATED > 60
[2020-05-02 17:26] LABS: BUN/CREATININE RATIO 17
[2020-05-02 17:28] LABS: ALANINE AMINOTRANSFERASE 10 U/L (0-55)
--- NOTE | 2020-05-02 17:30 | Diagnostic Imaging Report ---
INDICATION: Hypoxia COMPARISON: 12/16/2017 FINDINGS: Frontal and lateral views of the chest demonstrate cardiac enlargement with central vascular congestion. No pneumothorax or effusion is seen. Osseous structures are normal. IMPRESSION: Cardiac enlargement with central vascular congestion. Dictated by: Dictated on workstation # [id number]
[2020-05-02] MEDS ORDERED: ACETAMINOPHEN 325 MG TABLET PO PRN (17:45)
[2020-05-02] MEDS ORDERED: KCL 20 MEQ TAB (K-DUR) PO ONE (18:15)
[2020-05-02] MEDS ORDERED: KCL 10 MEQ TAB (MICRO K) PO NR (18:15)
[2020-05-02] MEDS ORDERED: FUROSEMIDE 40 MG/4 ML INJ (LASIX) IVP NR (18:15)
[2020-05-02] MEDS: ENOXAPARIN 40 MG/0.4 ML (LOVENOX) SYR SQ SCH (18:23)
[2020-05-02] MEDS: DOCUSATE SODIUM 100 MG (COLACE) CAP PO SCH (19:50)
[2020-05-02] MEDS: CARVEDILOL 12.5 MG (COREG) TABLET PO SCH (19:50)
[2020-05-02] MEDS: SIMvastatin 20 MG (ZOCOR) TAB PO SCH (19:50)
[2020-05-02] MEDS: GABAPENTIN 100 MG (NEURONTIN) CAP PO SCH (19:50)
[2020-05-02] MEDS: CATHETER FLUSH 10 ML SYR IV SCH (19:54)
[2020-05-02 20:33] VITALS: BP 126/58
[2020-05-02] MEDS ORDERED: NON-FORMULARY MEDICATION 1 EA EA (Escitalopram Oxalate 20 MG) PO SCH (21:00)
[2020-05-02] MEDS ORDERED: NON-FORMULARY MEDICATION 1 EA EA (Carvedilol 25 MG) PO SCH (21:00)
[2020-05-02 22:17] LABS: BILIRUBIN,URINE NEGATIVE (NEGATIVE); CLARITY,URINE CLEAR; COLOR,URINE YELLOW; GLUCOSE, URINE (UA) NEGATIVE (NEGATIVE); KETONES,URINE NEGATIVE (NEGATIVE); LEUKOCYTE ESTERASE ,URINE NEGATIVE (NEGATIVE); NITRITE,URINE NEGATIVE (NEGATIVE); PROTEIN,URINE NEGATIVE (NEGATIVE)
[2020-05-02 22:25] LABS: RBC,URINE 0 /HPF
[2020-05-02 22:26] LABS: BACTERIA,URINE NEGATIVE /HPF
[2020-05-03 00:10] VITALS: BP 115/60
[2020-05-03 04:26] VITALS: BP 101/61
[2020-05-03] MEDS: CATHETER FLUSH 10 ML SYR IV SCH ×3 (05:57→22:55)
[2020-05-03 08:00] VITALS: BP 132/62
--- NOTE | 2020-05-03 08:23 | History & Physical ---
History of Present Illness History of Present Illness Reason for visit/HPI PT IS AN 85 Y/O FEMALE WHO IS WELL KNOWN TO ME FROM CLINIC. SHE HAD AN OFFICE APPOINTMENT YESTERDAY AND WAS A DIRECT ADMISSION FOR EVALUA TION DUE TO ACUTE AND SEVERE HYPOXIA. SHE WAS CONFUSED, LETHARGIC AND HYPOXIC, CONCERN FOR FLUID OVERLOAD VERSUS PNEUMONIA. UPON ADMISSION SHE HAD A NEW OXYGEN REQUIREMENT OF 2-3 LITERS OF OXYGEN. HER FAMILY REPORTS PROGRESSIVE WEAKNESS AT HOME WITH CONFUSION THIS MORNING. Date of Admission 05/02/2020@1400 Date Seen by a Provider: May 02, 2020 Time Seen by a Provider: 14:00 Attending Physician Deangelo Figueroa MD Admitting Physician Deangelo Figueroa MD Consult Allergies and Home Medications Allergies Coded Allergies: No Known Drug Allergies (Unverified , 11/16/19) Home Medications Carvedilol 25 Mg Tablet, 25 MG PO BID, (Reported) Docusate Sodium 100 Mg Capsule, 100 MG PO BID, (Reported) Escitalopram Oxalate 20 Mg Tablet, 20 MG PO HS, (Reported) Furosemide 20 Mg Tablet, 40 MG PO BID, (Reported) take 2 (20mg) tabs Gabapentin 100 Mg Capsule, 100 MG PO DAILY, (Reported) Gabapentin 100 Mg Capsule, 300 MG PO HS, (Reported) TAKES 3 (100MG) CAPSULES Gabapentin 100 Mg Capsule, 200 MG PO DAILY@1600, (Reported) take 2 (100mg) tabs Glipizide 5 Mg Tab.er.24, 5 MG PO DAILY, (Reported) Insulin Degludec 200 Unit/1 Ml Insuln.pen, 17 UNIT SQ DAILY, (Reported) Omeprazole 20 Mg Capsule.dr, 20 MG PO DAILY, (Reported) Potassium Chloride 10 Meq Capsule.er, 10 MEQ PO BID, (Reported) Simvastatin 20 Mg Tablet, 20 MG PO HS, (Reported) Patient Home Medication List Home Medication List Reviewed: Yes Past Qcsknrd-Oyqpnl-Vgdilx Hx Past Med/Social Hx: Reviewed Nursing Past Med/Soc Hx, Reviewed and Corrections made Patient Social History Marrital Status: Number of Children: 5 Number of living children: 5 Living Status: LIVES WITH HER DTR Employed/Student: retired Alcohol Use: Denies Use Smoking Status: Former Smoker Former Smoker, Quit: Dec 27, 1995 Type Used: Cigarettes 2nd Hand Smoke Exposure: No Physical Abuse Screen: No Sexual Abuse: No Recent Foreign Travel: No Contact w/other who traveled: No Recent Hopitalizations: No Social History PT LIVES WITH HER DTR IN THEIR HOME Immunizations Up To Date Tetanus Booster (TDap): Unknown Date of Pneumonia Vaccine: Aug 08, 2011 Date of Influenza Vaccine: Dec 08, 2019 Seasonal Allergies Seasonal Allergies: No Past Medical History Surgeries: Hysterectomy, Joint Replacement Currently Using CPAP: No Currently Using BIPAP: No Cardiac: High Cholesterol, Hypertension : No 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: No Sexually Transmitted Disease: No HIV/AIDS: No Female 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 Disorders: Denies Genitourinary: Renal Failure Gastrointestinal: Gastroesophageal Reflux, Chronic Constipation Musculoskeletal: Degenerate Disk Disease, Arthritis Endocrine: Diabetes, Non-Insulin dep Loss of Vision: Denies Hearing Impairment: Denies Psychosocial: Anxiety, Depression History of Blood Disorders: No Adverse Reaction to Blood Levi: No (N/A) Family History Reviewed Nursing Family Hx Myocardial infarction 19 MOTHER Heart Disease, Hypertension Review of Systems Constitutional: No chills, No fever; malaise, weakness EENTM: hearing loss; No hoarseness, No throat pain Respiratory: No cough; dyspnea on exertion, short of breath Cardiovascular: No chest pain; edema; No palpitations Gastrointestinal: No abdominal pain; constipation; No diarrhea, No nausea, No vomiting Genitourinary: incontinence Musculoskeletal: joint pain (SHOULDERS AND KNEES AND BACK), muscle weakness Skin: no symptoms reported Psychiatric/Neurological: Anxiety, Depressed, Weakness, Other (CONFUSION) All Other Systems Reviewed Negative Unless Noted: Yes Physical Exam Vital Signs Vital Signs - First Documented 05/02/20 05/02/20 16:23 18:32 Temp 39.1 Pulse 86 Resp 20 B/P (MAP) 147/65 (92) Pulse Ox 92 O2 Delivery Nasal Cannula O2 Flow Rate 2.00 Capillary Refill : Height, Weight, BMI Height: 5'8.00" Weight: 212lbs. 7.0oz. 96.627654sk; 70.90 BMI Method:Stated General Appearance: WD/WN, Mild Distress (DUE TO ANXIETY) HEENT: PERRL/EOMI, Pharynx Normal Neck: Full Range of Motion, Supple Respiratory: Chest Non Tender, Decreased Breath Sounds Cardiovascular: Systolic Murmur, Irregularly Irregular, Tachycardia Gastrointestinal: Normal Bowel Sounds, No Organomegaly, No Pulsatile Mass, Non Tender, Soft Rectal: Deferred Back: Other (KYPHOSIS) Extremity: Normal Capillary Refill, Non Tender, No Calf Tenderness, Pedal Edema (2+) Neurologic/Psychiatric: Alert, Other (ORIENTED TO PERSON, PLACE NOT TIME - FLAT AFFECT) Skin: Cool, Cyanosis (OF LIPS) Lymphatic: No Adenopathy Assessment/Plan Assessment and Plan FEBRILE ILLNESS HYPOXIA - ACUTE ACUTE RESPIRATORY FAILURE 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 MILD SYSTOLIC CONGESTIVE HEART FAILURE WITH ELEVATED BNP - CHECK ECHO - DOSE OF LASIX THIS EVENING - MONITOR OUTPUT CHRONIC PAIN SYNDROME WITH CHRONIC OPIOID USE - WILL RESTART HOME REGIMEN, IF CONFUSION PERSISTS, WILL CONSIDER DECREASE DOSE OF FENTANTYL. - START THERAPY HYPERTENSION - RESUME HOME REGIMEN CHRONIC ATRIAL FIBRILLATION - RESUME HOME REGIMEN - STARTED LOVENOX DIABETES MELLITUS TYPE 2 - HOLD GLIPIZIDE - RESTART LONG ACTING INSULIN - WILL USE HOSPITAL FORMULARY LEVEMIR AT 18 UNITS HX. HYPERLIPIDEMIA - RESTARTED STATIN THERAPY PERIPHERAL NEUROPATHY - RESTARTED GABAPENTIN ANTICIPATE SHE WILL NEED SHELTER PLACEMENT FOR REHAB ON DISCHARGE. Admission Diagnosis FEBRILE ILLNESS HYPOXIA - ACUTE ACUTE RESPIRATORY FAILURE 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 CHRONIC PAIN SYNDROME CHRONIC OPIOID USE HYPERTENSION CHRONIC ATRIAL FIBRILLATION DIABETES MELLITUS TYPE 2 HYPERLIPIDEMIA PERIPHERAL NEUROPATHY Admission Status: Inpatient Order (span 2 midnights) Reason for Inpatient Admission: INPT ADMISSION FOR MILD CHF SYSTOLIC, WITH AFIB CHRONIC AND ACUTE HYPOXIA AND FEVER, WILL REQUIRE AT LEAST 48 HOURS IN HOSPITAL FOR STABILIZATION DEANGELO FIGUEROA MD May 03, 2020 08:23
[2020-05-03] MEDS ORDERED: [UNRECOGNIZED DRUG - REMARK] TP SCH ×2 (08:30→17:59)
--- NOTE | 2020-05-03 08:31 | Progress Note ---
Subjective Subjective Date Seen by Provider: May 03, 2020 Time Seen by Provider: 08:30 PT REPORTS THAT SHE IS FEELING BETTER TODAY- MORE ALERT, PAIN IS ABOUT THE SAME USUAL, SHE DENIES SEVERE SHORTNESS OF BREATH, ABDOMINAL PAIN, NAUSEA, CHEST PAIN. SHE REPORTS THAT HER APPETITE SEEMS BETTER THIS MORNING WELL Review of Systems General: Fatigue HEENT: No Head Aches, No Visual Changes, No Eye Pain, No Dysphasia, No Sore Throat Pulmonary: Dyspnea; No Cough, No Pleuritic Chest Pain Cardiovascular: Other; No: Chest Pain, Palpitations, Lt Headedness Gastrointestinal: No: Nausea, Vomiting, Abdominal Pain, Diarrhea, Constipation Musculoskeletal: shoulder pain, back pain Neurological: Weakness All Other Systems Reviewed All Other Systems Reviewed: Yes Objective Exam Vital Signs Vital Signs - First Documented 05/02/20 05/02/20 16:23 18:32 Temp 39.1 Pulse 86 Resp 20 B/P (MAP) 147/65 (92) Pulse Ox 92 O2 Delivery Nasal Cannula O2 Flow Rate 2.00 Capillary Refill : General Appearance: No Apparent Distress, WD/WN HEENT: PERRL/EOMI, Pharynx Normal Neck: Full Range of Motion, Supple Respiratory: Chest Non Tender, Decreased Breath Sounds Cardiovascular: Systolic Murmur, Irregularly Irregular, Tachycardia Gastrointestinal: Normal Bowel Sounds, No Organomegaly, No Pulsatile Mass, Non Tender, Soft Rectal: Deferred Back: Other (KYPHOSIS) Extremity: Normal Capillary Refill, Non Tender, No Calf Tenderness, Pedal Edema (2+) Neurologic/Psychiatric: Alert, Oriented x3, Normal Mood/Affect Skin: Normal Color, Warm/Dry Lymphatic: No Adenopathy Results Lab Laboratory Tests 05/02/20 16:57: White Blood Count 8.6, Red Blood Count 4.46, Hemoglobin 13.4, Hematocrit 44, Mean Corpuscular Volume 98, Mean Corpuscular Hemoglobin 30, Mean Corpuscular Hemoglobin Concent 31L, Red Cell Distribution Width 12.7, Platelet Count 201, Mean Platelet Volume 10.6, Immature Granulocyte % (Auto) 1, Neutrophils (%) (Auto) 74, Lymphocytes (%) (Auto) 16, Monocytes (%) (Auto) 7, Eosinophils (%) (Auto) 1, Basophils (%) (Auto) 1, Neutrophils # (Auto) 6.4, Lymphocytes # (Auto) 1.4, Monocytes # (Auto) 0.6, Eosinophils # (Auto) 0.1, Basophils # (Auto) 0.0, Immature Granulocyte # (Auto) 0.1, Sodium Level 140, Potassium Level 4.3, Chloride Level 97L, Carbon Dioxide Level 31, Anion Gap 12, Blood Urea Nitrogen 15, Creatinine 0.86, Estimat Glomerular Filtration Rate > 60, BUN/Creatinine Ratio 17, Glucose Level 158H, Calcium Level 9.2, Corrected Calcium 9.0, Total Bilirubin 0.5, Aspartate Amino Transf (AST/SGOT) 17, Alanine Aminotransferase (ALT/SGPT) 10, Alkaline Phosphatase 132, B-Type Natriuretic Peptide 223.5H, Total Protein 8.7H, Albumin 4.2 05/02/20 17:45: Lactic Acid Level 1.11 05/02/20 19:48: Glucometer 132H 05/02/20 22:00: Urine Color YELLOW, Urine Clarity CLEAR, Urine pH 8.0, Urine Specific [place] 1.020, Urine Protein NEGATIVE, Urine Glucose (UA) NEGATIVE, Urine Ketones NEGATIVE, Urine Nitrite NEGATIVE, Urine Bilirubin NEGATIVE, Urine Urobilinogen 0.2, Urine Leukocyte Esterase NEGATIVE, Urine RBC (Auto) NEGATIVE, Urine RBC 0, Urine WBC 5-10H, Urine Squamous Epithelial Cells 2-5, Urine Crystals NONE, Urine Bacteria NEGATIVE, Urine Casts NONE, Urine Mucus NEGATIVE, Urine Culture Indicated NO 05/03/20 05:25: Glucometer 160H Assessment/Plan Assessment/Plan Admission Dx FEBRILE ILLNESS HYPOXIA - ACUTE ACUTE RESPIRATORY FAILURE 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 MILD SYSTOLIC CONGESTIVE HEART FAILURE WITH ELEVATED BNP - CHECK ECHO - DOSE OF LASIX YESTERDAY EVENING - MONITOR OUTPUT CHRONIC PAIN SYNDROME WITH CHRONIC OPIOID USE - RESTARTED FENTANTYL, DOSE DECREASED - START THERAPY HYPERTENSION - RESUME HOME REGIMEN CHRONIC ATRIAL FIBRILLATION - RESUME HOME REGIMEN - STARTED LOVENOX DIABETES MELLITUS TYPE 2 - HOLD GLIPIZIDE - RESTART LONG ACTING INSULIN - WILL USE HOSPITAL FORMULARY LEVEMIR AT 18 UNITS HX. HYPERLIPIDEMIA - RESTARTED STATIN THERAPY PERIPHERAL NEUROPATHY - RESTARTED GABAPENTIN ANTICIPATE SHE WILL NEED INTERMEDIATE PLACEMENT FOR REHAB ON DISCHARGE. Admission Dx FEBRILE ILLNESS HYPOXIA - ACUTE ACUTE RESPIRATORY FAILURE 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 CHRONIC PAIN SYNDROME CHRONIC OPIOID USE HYPERTENSION CHRONIC ATRIAL FIBRILLATION DIABETES MELLITUS TYPE 2 HYPERLIPIDEMIA PERIPHERAL NEUROPATHY Clinical Quality Measures Admission Status Admission Dx FEBRILE ILLNESS HYPOXIA - ACUTE ACUTE RESPIRATORY FAILURE 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 CHRONIC PAIN SYNDROME CHRONIC OPIOID USE HYPERTENSION CHRONIC ATRIAL FIBRILLATION DIABETES MELLITUS TYPE 2 HYPERLIPIDEMIA PERIPHERAL NEUROPATHY DEANGELO FOSTER MD May 03, 2020 08:31
[2020-05-03 08:36] LABS: HEMOGLOBIN 11.8 g/dL (11.5-16.0); MEAN PLATELET VOLUME 10.6 fL (9.0-12.2); WHITE BLOOD COUNT 6.5 10^3/uL (4.3-11.0)
[2020-05-03] MEDS: DOCUSATE SODIUM 100 MG (COLACE) CAP PO SCH ×2 (08:38→20:11)
[2020-05-03] MEDS: GABAPENTIN 100 MG (NEURONTIN) CAP PO SCH ×3 (08:39→20:11)
[2020-05-03] MEDS: CARVEDILOL 12.5 MG (COREG) TABLET PO SCH ×2 (08:39→20:11)
[2020-05-03] MEDS: PANTOPRAZOLE 20 MG TABLET (PROTONIX) PO SCH (08:39)
[2020-05-03 08:59] LABS: ALBUMIN 3.7 GM/DL (3.2-4.5); BILIRUBIN,TOTAL 0.3 MG/DL (0.1-1.0); CREATININE SERUM 1.1 MG/DL (0.60-1.30); POTASSIUM 3.7 MMOL/L (3.6-5.0); TOTAL PROTEIN 7.2 GM/DL (6.4-8.2)
[2020-05-03] MEDS ORDERED: OMEPRAZOLE 20 MG (PriLOSEC) CAP NON-FORMULARY PO SCH (09:00)
[2020-05-03] MEDS ORDERED: POTA10TA PO (09:35)
[2020-05-03] MEDS ORDERED: ALBU18HF2 INH (09:35)
[2020-05-03] MEDS ORDERED: GABA300C PO (09:35)
[2020-05-03] MEDS ORDERED: FENT1PAT8 TD (09:35)
[2020-05-03] MEDS ORDERED: FEN12TD TD (09:35)
[2020-05-03 12:00] VITALS: BP 115/56
--- NOTE | 2020-05-03 14:16 | Occupational Therapy Eval ---
OT Evaluation-General/PLF Medical Diagnosis Admission Date May 03, 2020 at 03:15 Medical Diagnosis: hypoxia, possible CHF Onset Date: May 02, 2020 Therapy Diagnosis Therapy Diagnosis: weakness, decreased ADL Status Height/Weight Height (Feet): 5 Height (Inches): 8.00 Weight (Pounds): 212 Weight (Ounces): 7.0 Precautions Precautions/Isolations: Fall Prevention, Standard Precautions Referral Physician: Carolina Referral Reason: Evaluation/Treatment Medical History Pertinent Medical History: Atrial Fib, Arthritis, DM, HTN, Neuropathy, OA, Renal Insufficiency, Smoking Additional Medical History joint replacement, HTN, high cholesterol, GERD, DDD, arthritis, DM, anxiety/depression, hysterectomy Current History Pt had office appointment yesterday, then admitted directly for evaluation due to acute and severe hypoxia. Pt is confused, lethargic, and hypoxic. There is a concern for fluid vs pneumonia. Social History Home: Multilevel (stays on 1st floor only) Current Living Status: Children (daughter) ADL-Prior Level of Function SCALE: Activities may be completed with or without assistive devices. 4-Nwltknsazr-mmbrjkg completes the activity by him/herself with no assistance from a helper. 5-Set-up or Clean-up Assistance-helper sets up or cleans up; patient completes activity. [place] assists only prior to or following the activity. 4-Supervision or Touching Assistance-helper provides verbal cues and/or touching/steadying and/or contact guard assistance as patient completes activity. Assistance may be provided throughout the activity or intermittently. 3-Partial/Moderate Assistance-helper does LESS THAN HALF the effort. [place] lifts, holds or supports trunk or limbs, but provides less than half the effort. 2-Substantial/Maximal Assistance-helper does MORE THAN HALF the effort. [place] lifts or holds trunk or limbs and provides more than half the effort. 0-Tqqnyufly-obflag does ALL the effort. Patient does none of the effort to complete the activity. Or, the assistance of 2 or more helpers is required for the patient to complete the activity. If activity was not attempted, code reason: 7-Patient Refused. 9-Not Applicable-not attempted and the patient did not perform the activity before the current illness, exacerbation or injury. 10-Not Attempted due to Environmental Limitations-(lack of equipment, weather restraints, etc.). 88-Not Attempted due to Medical Conditions or Safety Concerns. ADL PLOF Comments Pt indicates independent with bathing, dressing, toileting, assistance with cooking and cleaning. She uses a walker for functional mobility. Self Care: Independent Functional Cognition: Independent DME/Equipment: Bath Bench, Tub/Shower DME/Equipment Comments walker OT Current Status Subjective Pt seated in recliner, agreeable to OT Tx. Pt does not report any pain. Mental Status/Objective Patient Orientation: Person, Place, Situation Attachments: Oxygen Current Glasses/Contacts: Yes Hearing Aids: No Dentures/Partials: Yes Hand Dominance: Right Upper Extremity ROM BUE shoulder flexion to approx 120 degrees Upper Extremity Coordination WFL Upper Extremity Sensation WFL Upper Extremity Strength grossly 3/5 ADL-Treatment Oral Hygiene (QC): 5 (set up, pt able to use oral swab to clean gums/tongue) Shower/Bathe Self (QC): 7 Toileting Hygiene (QC): 7 (Pt had just toileted with nursing staff) Other Treatments Pt seated in recliner, agreeable to OT evaluation and tx. OT educated pt on purpose and benefit of OT, she verbalized understanding. Pt then provided inf ormation about PLOF and home set up, and participated in UE screen. Pt completed oral care, hair brushing, and face washing with set up assist. In order to increase BUE strength and activity tolerance, pt then completed x10 reps each of the following BUE exercises: shoulder flexion and elbow flexion. Pt completed exercises at slow pace. Post tx, pt seated in recliner, call light in reach and all needs met. Education OT Patient Education: Correct positioning, Energy conservation, Modified ADL techniques, Progress toward Goal/Update tx plan, Purpose of tx/functional activities, Rehab process Teaching Recipient: Patient Teaching Methods: Discussion Response to Teaching: Verbalize Understanding OT Correction Goals [employer] Licensee Goals Time Frame: May 11, 2020 Eating (QC): 6 Oral Hygiene (QC): 6 Toileting Hygiene (QC): 6 Shower/Bathe Self (QC): 6 Upper Body Dressing (QC): 6 Lower Body Dressing (QC): 6 On/Off Footwear (QC): 6 Additional Goals: 1-Demonstrate ADL Tasks, 2-Verbalize Understanding, 3- ImproveStrength/Patricia 1=Demonstrate adherence to instructed precautions during ADL tasks. 2=Patient will verbalize/demonstrate understanding of assistive devices/modifications for ADL. 3=Patient will improve strength/tolerance for activity to enable patient to perform ADL's. OT Education/Plan Problem List/Assessment Assessment: Decreased Activ Tolerance, Decreased UE Strength, Impaired I ADL's, Impaired Self-Care Skills Discharge Recommendations Plan/Recommendations: Continue POC Treatment Plan/Plan of Care Patient would benefit from OT for education, treatment and training to promote independence in ADL's, mobility, safety and/or upper extremity function for ADL's. Plan of Care: ADL Retraining, Functional Mobility, UE Funct Exercise/Act Treatment Duration: May 11, 2020 Frequency: 5 times per week Estimated Hrs Per Day: .25 hour per day Rehab Potential: Good Time/GCodes Start Time: 13:37 Stop Time: 13:51 Total Time Billed (hr/min): 14 Billed Treatment Time 1, QUINTEN WILKS OT May 03, 2020 14:16
--- NOTE | 2020-05-03 14:59 | Physical Therapy Evaluation ---
PT Evaluation-General Medical Diagnosis Admission Date May 03, 2020 at 03:15 Medical Diagnosis: hypoxia, possible CHF Onset Date: May 02, 2020 Therapy Diagnosis Therapy Diagnosis: debility/weakness Height/Weight Height (Feet): 5 Height (Inches): 8.00 Weight (Pounds): 212 Weight (Ounces): 7.0 Precautions Precautions/Isolations: Fall Prevention, Standard Precautions Referral Physician: Carolina Reason for Referral: Evaluation/Treatment Medical History Pertinent Medical History: Atrial Fib, Arthritis, DM, HTN, Neuropathy, OA, Renal Insufficiency, Smoking Current History Direct admit from physicians office Reviewed History: Yes Social History Home: Multilevel (stays on 1st floor only) Current Living Status: Children (daughter) Prior Prior Level of Function SCALE: Activities may be completed with or without assistive devices. 1-Djdwvemmbq-gfvxhfy completes the activity by him/herself with no assistance from a helper. 5-Set-up or Clean-up Assistance-helper sets up or cleans up; patient completes activity. [place] assists only prior to or following the activity. 4-Supervision or Touching Assistance-helper provides verbal cues and/or touching/steadying and/or contact guard assistance as patient completes activity. Assistance may be provided throughout the activity or intermittently. 3-Partial/Moderate Assistance-helper does LESS THAN HALF the effort. [place] lifts, holds or supports trunk or limbs, but provides less than half the effort. 2-Substantial/Maximal Assistance-helper does MORE THAN HALF the effort. [place] lifts or holds trunk or limbs and provides more than half the effort. 8-Gjfmiqpax-ynfafg does ALL the effort. Patient does none of the effort to complete the activity. Or, the assistance of 2 or more helpers is required for the patient to complete the activity. If activity was not attempted, code reason: 7-Patient Refused. 9-Not Applicable-not attempted and the patient did not perform the activity before the current illness, exacerbation or injury. 10-Not Attempted due to Environmental Limitations-(lack of equipment, weather restraints, etc.). 88-Not Attempted due to Medical Conditions or Safety Concerns. Bed Mobility: 6 Transfers (B,C,W/C): 6 Gait: 6 Stairs: 6 Indoor Mobility (Ambulation): Independent Stairs: Independent Prior Devices Use: Walker PT Evaluation-Current Subjective Patient agrees to PT Objective Patient Orientation: Normal For Age Attachments: Oxygen ROM/Strength ROM Lower Extremities bilateral LE WFL Strength Lower Extremities 4-/5 grossly bilateral LE Integumentary/Posture Integumentary refer to nursing notes Bowel Incontinence: No Bladder Incontinence: No Posture slightly kyphotic Neuromuscular (Tone, Coordination, Reflexes) grossly intact Sensory Vision: Functional Hearing: Functional Hand Dominance: Right Sensation Right Lower Extremit: Impaired Sensation Left Lower Extremity: Impaired Transfers Roll Left to Right (QC): 4 Sit to Lying (QC): 4 Lying to Sitting/Side of Bed(Q: 4 Sit to Stand (QC): 4 Chair/Qnk-ol-Eqziz Xfer(QC): 4 Gait Does the Patient Walk?: Yes Mode of Locomotion: Walk Anticipated Mode of Locomotion: Walk Walk 10 feet (QC): 4 Walk 150 ft (QC): 4 Distance: 500' Gait Assistive Device: FWW Comments/Gait Description steady, functional gait sequence Wheelchair Training Does the Pt Use a Wheelchair?: No Balance Sitting Static: Normal Sitting Dynamic: Normal Standing Static: Normal Standing Dynamic: Normal Picking up an Object (QC): 6 (seated position) Assessment/Needs 85 y.o. female, will be seen short term by skilled PT to address functional mobility to ensure safe return to home with family. Rehab Potential: Fair PT Cone Examiner Goals Cone Examiner Goals PT Cone Examiner Goals Time Frame: May 12, 2020 Roll Left & Right (QC): 6 Sit to Lying (QC): 6 Lying-Sitting on Side/Bed(QC): 6 Sit to Stand (QC): 6 Chair/Sbk-vx-Mlvgp Xfer(QC): 6 Toilet Transfer (QC): 6 Does the Patient Walk: Yes Walk 10 feet (QC): 6 Walk 50ft with 2 Turns (QC): 6 Walk 150 ft (QC): 6 1 Step (curb) (QC): 5 4 Steps (QC): 5 PT Plan Treatment/Plan Treatment Plan: Continue Plan of Care Treatment Plan: Bed Mobility, Education, Functional Activity Patricia, Functional Strength, Gait, Safety, Therapeutic Exercise, Transfers Treatment Duration: May 12, 2020 Frequency: 6 times per week Estimated Hrs Per Day: .25 hour per day Patient and/or Family Agrees t: Yes Discharge Recommendations Therapy Discharge Recommendati: Home & Family Time/GCodes Time In: 1400 Time Out: 1417 Total Billed Treatment Time: 17 Total Billed Treatment 1 visit EVModC 17 min ISAMAR JADE PT May 03, 2020 14:59
[2020-05-03] MEDS: cefTRIAXone FOR IV USE 1,000 MG in WATER (STERILE) FOR INJECTION 10 ML IV SCH (16:21)
[2020-05-03 16:29] VITALS: BP 138/64
[2020-05-03] MEDS ORDERED: fentaNYL PATCH 12 MCG (DURAGESIC) TD SCH (18:00)
[2020-05-03] MEDS: fentaNYL PATCH 25 MCG (DURAGESIC) TD SCH (18:20)
[2020-05-03] MEDS: ENOXAPARIN 40 MG/0.4 ML (LOVENOX) SYR SQ SCH (18:20)
[2020-05-03] MEDS: FENTANYL 25 MCG PATCH REMOVAL TP SCH (18:20)
[2020-05-03 19:18] VITALS: BP 123/59
[2020-05-03] MEDS: SIMvastatin 20 MG (ZOCOR) TAB PO SCH (20:11)
[2020-05-03] MEDS: polyethylene glycoL POWDER 17 GM (MIRALAX) PACK PO SCH (20:12)
[2020-05-04] VITALS: BP 135/67
[2020-05-04 04:00] VITALS: BP 117/56
[2020-05-04] MEDS: CATHETER FLUSH 10 ML SYR IV SCH ×3 (05:33→20:49)
--- NOTE | 2020-05-04 06:14 | Progress Note ---
Subjective Subjective Date Seen by Provider: May 04, 2020 Time Seen by Provider: 06:14 PT MORE ALERT TODAY, STATES THAT SHE IS FEELING BETTER, FEELS LIKE SHE IS STILL REALLY WEAK. SHE REPORTS T HAT SHE DOES NOT HAVE ANY ABDOMINAL PAIN, NAUSEA. SHE DENIES CHEST PAIN, BUT DOES ADMIT TO FEELING QUITE SHORT OF BREATH WHEN MOVING AROUND IN THE ROOM OR WITH THERAPY. STAFF DENIES ANY ACUTE CONCERNS TODAY. Review of Systems General: Fatigue, Malaise HEENT: No Head Aches, No Visual Changes, No Dysphasia Pulmonary: Dyspnea; No Cough Cardiovascular: Other; No: Chest Pain, Edema, Lt Headedness Gastrointestinal: No: Nausea, Abdominal Pain Musculoskeletal: shoulder pain, back pain Neurological: Weakness All Other Systems Reviewed All Other Systems Reviewed: Yes Objective Exam Vital Signs Vital Signs - First Documented 05/02/20 05/02/20 16:23 18:32 Temp 39.1 Pulse 86 Resp 20 B/P (MAP) 147/65 (92) Pulse Ox 92 O2 Delivery Nasal Cannula O2 Flow Rate 2.00 Capillary Refill : General Appearance: No Apparent Distress, WD/WN HEENT: PERRL/EOMI, Pharynx Normal, Other (LIPS PINK, MOIST) Neck: Full Range of Motion, Supple Respiratory: Chest Non Tender, Normal Breath Sounds, No Accessory Muscle Use, No Respiratory Distress Cardiovascular: Systolic Murmur, Irregularly Irregular Gastrointestinal: Normal Bowel Sounds, No Organomegaly, No Pulsatile Mass, Non Tender, Soft Rectal: Deferred Back: Other (KYPHOSIS) Extremity: Normal Capillary Refill, Non Tender, No Calf Tenderness, Pedal Edema (2+) Neurologic/Psychiatric: Alert, Other (ORIENTED TO PERSON, PLACE NOT TIME - FLAT AFFECT) Skin: Normal Color, Warm/Dry Lymphatic: No Adenopathy Results Lab Laboratory Tests 05/03/20 08:30: White Blood Count 6.5, Red Blood Count 3.93, Hemoglobin 11.8, Hematocrit 39, Mean Corpuscular Volume 99, Mean Corpuscular Hemoglobin 30, Mean Corpuscular Hemoglobin Concent 30L, Red Cell Distribution Width 12.9, Platelet Count 191, Mean Platelet Volume 10.6, D-Dimer 3.28H, Sodium Level 140, Potassium Level 3.7, Chloride Level 101, Carbon Dioxide Level 27, Anion Gap 12, Blood Urea Nitrogen 19H, Creatinine 1.10, Estimat Glomerular Filtration Rate 47, BUN/Creatinine Ratio 17, Glucose Level 326H, Calcium Level 9.0, Corrected Calcium 9.2, Total Bilirubin 0.3, Aspartate Amino Transf (AST/SGOT) 14, Alanine Aminotransferase (ALT/SGPT) 9, Alkaline Phosphatase 118, Total Protein 7.2, Albumin 3.7 05/03/20 11:36: Glucometer 239H 05/03/20 15:51: Glucometer 293H 05/03/20 20:48: Glucometer 243H 05/04/20 06:00: Glucometer 196H Microbiology 05/02/20 Blood Culture - Preliminary, Resulted No growth Assessment/Plan Assessment/Plan Admission Dx FEBRILE ILLNESS HYPOXIA - ACUTE ACUTE RESPIRATORY FAILURE 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 - CT ANGIO PENDING WELL- D-DIMER WAS ELEVATED MILD DIASTOLIC CONGESTIVE HEART FAILURE WITH ELEVATED BNP - CHECK ECHO - WAITING ON REPORT - DOSE OF LASIX YESTERDAY EVENING - MONITOR OUTPUT CHRONIC PAIN SYNDROME WITH CHRONIC OPIOID USE - RESTARTED FENTANTYL, DOSE DECREASED - STARTED THERAPY, WILL NEED GROUP HOME PLACEMENT ON DISCHARGE HYPERTENSION - RESUME HOME REGIMEN CHRONIC ATRIAL FIBRILLATION - RESUME HOME REGIMEN - STARTED LOVENOX FOR DVT PROPHYLAXIS, WILL NEED TO START XARELTO ON DISCHARGE - WAITING ON ECHO REPORT DIABETES MELLITUS TYPE 2 - HOLD GLIPIZIDE - RESTARTED LONG ACTING INSULIN - LEVEMIR AT 18 UNITS - MONITOR FSBS FOR NEEDS TO ADJUST REGIMEN HYPERLIPIDEMIA - RESTARTED STATIN THERAPY PERIPHERAL NEUROPATHY - RESTARTED GABAPENTIN ANTICIPATE SHE WILL NEED GROUP HOME PLACEMENT FOR REHAB ON DISCHARGE. Admission Dx FEBRILE ILLNESS HYPOXIA - ACUTE ACUTE RESPIRATORY FAILURE 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 CHRONIC PAIN SYNDROME CHRONIC OPIOID USE HYPERTENSION CHRONIC ATRIAL FIBRILLATION DIABETES MELLITUS TYPE 2 HYPERLIPIDEMIA PERIPHERAL NEUROPATHY Clinical Quality Measures Admission Status Admission Dx FEBRILE ILLNESS HYPOXIA - ACUTE ACUTE RESPIRATORY FAILURE 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 CHRONIC PAIN SYNDROME CHRONIC OPIOID USE HYPERTENSION CHRONIC ATRIAL FIBRILLATION DIABETES MELLITUS TYPE 2 HYPERLIPIDEMIA PERIPHERAL NEUROPATHY DEANGELO FOSTER MD May 04, 2020 06:14
[2020-05-04 06:35] LABS: HEMOGLOBIN 11.8 g/dL (11.5-16.0); MEAN PLATELET VOLUME 11.1 fL (9.0-12.2); WHITE BLOOD COUNT 6.8 10^3/uL (4.3-11.0)
[2020-05-04 06:46] LABS: ALBUMIN 3.6 GM/DL (3.2-4.5); CHLORIDE 101 MMOL/L (98-107); POTASSIUM 3.9 MMOL/L (3.6-5.0); SODIUM 139 MMOL/L (135-145)
[2020-05-04 06:47] LABS: CALCIUM 8.6 MG/DL (8.5-10.1)
[2020-05-04 06:48] LABS: GLUCOSE 193 MG/DL (70-105)
[2020-05-04 06:49] LABS: TOTAL PROTEIN 7.3 GM/DL (6.4-8.2)
[2020-05-04 06:50] LABS: BILIRUBIN,TOTAL 0.4 MG/DL (0.1-1.0); CARBON DIOXIDE 30 MMOL/L (21-32)
[2020-05-04 06:52] LABS: ALKALINE PHOSPHATASE 111 U/L (40-136); CREATININE SERUM 0.87 MG/DL (0.60-1.30); GFR ESTIMATED > 60
[2020-05-04 06:53] LABS: BUN/CREATININE RATIO 17
[2020-05-04 06:55] LABS: ALANINE AMINOTRANSFERASE 10 U/L (0-55)
[2020-05-04 08:00] VITALS: BP 138/63
[2020-05-04] MEDS: CARVEDILOL 12.5 MG (COREG) TABLET PO SCH ×2 (08:29→20:48)
[2020-05-04] MEDS: GABAPENTIN 100 MG (NEURONTIN) CAP PO SCH ×3 (08:29→20:47)
[2020-05-04] MEDS: DOCUSATE SODIUM 100 MG (COLACE) CAP PO SCH ×2 (08:29→20:47)
[2020-05-04] MEDS: PANTOPRAZOLE 20 MG TABLET (PROTONIX) PO SCH (08:29)
[2020-05-04] MEDS ORDERED: NS 100 ML (IVPB) BAG IV ONE (08:45)
[2020-05-04] MEDS ORDERED: IOHEXOL 350 MG/ML 100 ML (OMNIPAQUE 350) VIAL IV ONE (08:45)
[2020-05-04] MEDS ORDERED: CATHETER FLUSH 10 ML SYR IV PRN (08:45)
[2020-05-04] MEDS ORDERED: HOLD METFORMIN - RECEIVED CONTRAST 20 ML VIAL IV SCH (08:45)
--- NOTE | 2020-05-04 09:23 | Diagnostic Imaging Report ---
Clinical indication: Patient with pneumonia. Exam: Chest x-ray PA and lateral views. Comparisons: Chest x-ray dated 05/02/2020. Findings: There is stable cardiomegaly with no significant pulmonary vascular congestion. There is increased lung markings throughout both lungs seen with no definite lung infiltrate. There is no pleural effusion or pneumothorax. There are degenerative spurs involving the thoracic spine. Impression: 1: Stable cardiomegaly with no significant pulmonary vascular congestion. 2: Increased lung markings involving both lungs which may be from chronic lung changes. There is no definite interval lung infiltrate. Dictated by: Dictated on workstation # [id number]
--- NOTE | 2020-05-04 09:27 | Diagnostic Imaging Report ---
PROCEDURE: CT angiography of the chest with contrast. TECHNIQUE: Multiple contiguous axial images were obtained through the chest after uneventful bolus administration of intravenous contrast. 3D reconstructed CTA MIP acquisitions were also performed. Auto Exposure Controls were utilized during the CT exam to meet ALARA standards for radiation dose reduction. INDICATION: Hypoxia. Correlation is made with prior CT chest from 08/26/2011. Evaluation of the pulmonary arterial system is without evidence of thromboembolism. No filling defects are seen within central, lobar segmental branches. Thoracic aorta is normal caliber. Heart is enlarged. No pericardial or pleural fluid is detected. The lungs are clear of acute infiltrates. There is some minimal dependent atelectasis in the left lower lobe with subsegmental atelectasis in the lingula. Moderate-sized hiatal hernia is present. Upper abdomen does show some low-attenuation lesions within the left kidney consistent with cysts. IMPRESSION: 1. Cardiomegaly. There is no evidence of pulmonary embolism. Dictated by: Dictated on workstation # [id number]
--- NOTE | 2020-05-04 11:03 | Physical Therapy Daily Note ---
PT Daily Note-Current Subjective Patient reports she is feeling better and agrees to PT. Mental Status Patient Orientation: Normal For Age Attachments: Oxygen Transfers SCALE: Activities may be completed with or without assistive devices. 7-Mfkgoomhuw-bnudaiw completes the activity by him/herself with no assistance from a helper. 5-Set-up or Clean-up Assistance-helper sets up or cleans up; patient completes activity. [place] assists only prior to or following the activity. 4-Supervision or Touching Assistance-helper provides verbal cues and/or touching/steadying and/or contact guard assistance as patient completes activity. Assistance may be provided throughout the activity or intermittently. 3-Partial/Moderate Assistance-helper does LESS THAN HALF the effort. [place] lifts, holds or supports trunk or limbs, but provides less than half the effort. 2-Substantial/Maximal Assistance-helper does MORE THAN HALF the effort. [place] lifts or holds trunk or limbs and provides more than half the effort. 3-Ljmdzhidq-xsobpx does ALL the effort. Patient does none of the effort to complete the activity. Or, the assistance of 2 or more helpers is required for the patient to complete the activity. If activity was not attempted, code reason: 7-Patient Refused. 9-Not Applicable-not attempted and the patient did not perform the activity before the current illness, exacerbation or injury. 10-Not Attempted due to Environmental Limitations-(lack of equipment, weather restraints, etc.). 88-Not Attempted due to Medical Conditions or Safety Concerns. Sit to Stand (QC): 4 Gait Training Does the Patient Walk?: Yes Distance: 800' Walk 10 feet (QC): 4 Walk 50 ft with 2 Turns(QC): 4 Walk 150 ft (QC): 4 Gait Assistive Device: FWW safe and functional/PT assist for O2 tank Exercises Seated Therapy Exercises: Ankle pumps, Long arc quads, Hip flexion Seated Reps: 15 Assessment Patient remains up in recliner to eat breakfast. Patient tolerated treatment well. PT Long-Term Goals Field Traffic Investigator Goals PT Field Traffic Investigator Goals Time Frame: May 12, 2020 Roll Left & Right (QC): 6 Sit to Lying (QC): 6 Lying-Sitting on Side/Bed(QC): 6 Sit to Stand (QC): 6 Chair/Ist-yr-Jjjuh Xfer(QC): 6 Toilet Transfer (QC): 6 Does the Patient Walk: Yes Walk 10 feet (QC): 6 Walk 50ft with 2 Turns (QC): 6 Walk 150 ft (QC): 6 1 Step (curb) (QC): 5 4 Steps (QC): 5 PT Plan Treatment/Plan Treatment Plan: Continue Plan of Care Treatment Plan: Bed Mobility, Education, Functional Activity Patricia, Functional Strength, Gait, Safety, Therapeutic Exercise, Transfers Treatment Duration: May 12, 2020 Frequency: 6 times per week Estimated Hrs Per Day: .25 hour per day Patient and/or Family Agrees t: Yes Time/GCodes Time In: 1009 Time Out: 1023 Total Billed Treatment Time: 14 Total Billed Treatment 1 visit FA 14 min ISAMAR JADE PT May 04, 2020 11:03
[2020-05-04] MEDS: inSUlin ASPART (NovoLOG) 1 UNIT/0.01 ML (CHARGE PER UNIT) SC SCH ×3 (11:34→20:53)
[2020-05-04 12:00] VITALS: BP 98/52
--- NOTE | 2020-05-04 12:00 | Occupational Ther Daily Note ---
OT Current Status-Daily Note Subjective Pt dozing, sitting in recliner. Pt wakes easily. Agrees to therapy. No c/o pain. Mental Status/Objective Patient Orientation: Person, Place, Time, Situation ADL-Treatment Therapy Code Descriptions/Definitions Functional [place] Measure: 0=Not Assessed/NA 4=Minimal Assistance 1=Total Assistance 5=Supervision or Setup 2=Maximal Assistance 6=Modified [place] 3=Moderate Assistance 7=Complete IndependenceSCALE: Activities may be completed with or without assistive devices. 4-Jxdhtfrisl-ygmxnnc completes the activity by him/herself with no assistance from a helper. 5-Set-up or Clean-up Assistance-helper sets up or cleans up; patient completes activity. [place] assists only prior to or following the activity. 4-Supervision or Touching Assistance-helper provides verbal cues and/or margarito hannah/steadying and/or contact guard assistance as patient completes activity. Assistance may be provided throughout the activity or intermittently. 3-Partial/Moderate Assistance-helper does LESS THAN HALF the effort. [place] lifts, holds or supports trunk or limbs, but provides less than half the effort. 2-Substantial/Maximal Assistance-helper does MORE THAN HALF the effort. [place] lifts or holds trunk or limbs and provides more than half the effort. 4-Stlmycedf-egksun does ALL the effort. Patient does none of the effort to complete the activity. Or, the assistance of 2 or more helpers is required for the patient to complete the activity. If activity was not attempted, code reason: 7-Patient Refused. 9-Not Applicable-not attempted and the patient did not perform the activity before the current illness, exacerbation or injury. 10-Not Attempted due to Environmental Limitations-(lack of equipment, weather restraints, etc.). 88-Not Attempted due to Medical Conditions or Safety Concerns. Other Treatment After gathering supplies, pt is able to cleanse mouth and complete oral care independently. Pt then completed 3 shldr exercises against gravity, 1 set 10 reps. After therapy, pt sitting in recliner with call light/phone in reach. All needs met in room. OT Mcc Goals Mcc Goals Time Frame: May 11, 2020 Eating (QC): 6 Oral Hygiene (QC): 6 Toileting Hygiene (QC): 6 Shower/Bathe Self (QC): 6 Upper Body Dressing (QC): 6 Lower Body Dressing (QC): 6 On/Off Footwear (QC): 6 Additional Goals: 1-Demonstrate ADL Tasks, 2-Verbalize Understanding, 3- ImproveStrength/Patricia 1=Demonstrate adherence to instructed precautions during ADL tasks. 2=Patient will verbalize/demonstrate understanding of assistive devices/modifications for ADL. 3=Patient will improve strength/tolerance for activity to enable patient to perform ADL's. OT Education/Plan Problem List/Assessment Assessment: Decreased Activ Tolerance, Impaired Self-Care Skills Discharge Recommendations Plan/Recommendations: Continue POC Treatment Plan/Plan of Care Patient would benefit from OT for education, treatment and training to promote independence in ADL's, mobility, safety and/or upper extremity function for ADL's. Plan of Care: ADL Retraining, Functional Mobility, UE Funct Exercise/Act Treatment Duration: May 11, 2020 Frequency: 5 times per week Estimated Hrs Per Day: .25 hour per day Rehab Potential: Fair Time/GCodes Start Time: 11:40 Stop Time: 11:55 Total Time Billed (hr/min): 15 Billed Treatment Time 1 visit-FA 1 (15 min) DMITRY VAIL May 04, 2020 12:00
[2020-05-04 15:55] VITALS: BP 129/61
[2020-05-04] MEDS: cefTRIAXone FOR IV USE 1,000 MG in WATER (STERILE) FOR INJECTION 10 ML IV SCH (16:35)
[2020-05-04] MEDS: polyethylene glycoL POWDER 17 GM (MIRALAX) PACK PO SCH (19:58)
[2020-05-04] MEDS: ENOXAPARIN 40 MG/0.4 ML (LOVENOX) SYR SQ SCH (20:12)
[2020-05-04 20:13] VITALS: BP 135/60
[2020-05-04] MEDS: SIMvastatin 20 MG (ZOCOR) TAB PO SCH (20:48)
[2020-05-05 01:43] VITALS: BP 132/61
[2020-05-05] MEDS: CATHETER FLUSH 10 ML SYR IV SCH ×3 (04:52→21:14)
[2020-05-05 04:57] VITALS: BP 122/59
[2020-05-05] MEDS: inSUlin ASPART (NovoLOG) 1 UNIT/0.01 ML (CHARGE PER UNIT) SC SCH ×4 (05:02→21:12)
[2020-05-05 05:21] LABS: MEAN PLATELET VOLUME 10.6 fL (9.0-12.2)
[2020-05-05 05:33] LABS: ALBUMIN 3.6 GM/DL (3.2-4.5)
[2020-05-05 05:34] LABS: CHLORIDE 103 MMOL/L (98-107); POTASSIUM 4.6 MMOL/L (3.6-5.0); SODIUM 138 MMOL/L (135-145)
[2020-05-05 05:35] LABS: CALCIUM 8.6 MG/DL (8.5-10.1)
[2020-05-05 05:36] LABS: GLUCOSE 175 MG/DL (70-105); TOTAL PROTEIN 7.3 GM/DL (6.4-8.2)
[2020-05-05 05:37] LABS: CARBON DIOXIDE 27 MMOL/L (21-32)
[2020-05-05 05:38] LABS: BILIRUBIN,TOTAL 0.2 MG/DL (0.1-1.0)
[2020-05-05 05:39] LABS: ALKALINE PHOSPHATASE 106 U/L (40-136)
[2020-05-05 05:40] LABS: CREATININE SERUM 0.85 MG/DL (0.60-1.30); GFR ESTIMATED > 60
[2020-05-05 05:41] LABS: BUN/CREATININE RATIO 18
[2020-05-05 05:42] LABS: ALANINE AMINOTRANSFERASE 12 U/L (0-55)
[2020-05-05 08:09] VITALS: BP 120/56
[2020-05-05] MEDS: DOCUSATE SODIUM 100 MG (COLACE) CAP PO SCH ×2 (08:46→20:08)
[2020-05-05] MEDS: GABAPENTIN 100 MG (NEURONTIN) CAP PO SCH ×3 (08:46→20:08)
[2020-05-05] MEDS: CARVEDILOL 12.5 MG (COREG) TABLET PO SCH ×2 (08:46→20:08)
[2020-05-05] MEDS: PANTOPRAZOLE 20 MG TABLET (PROTONIX) PO SCH (08:46)
--- NOTE | 2020-05-05 08:59 | Physical Therapy Daily Note ---
PT Daily Note-Current Subjective Patient agrees to PT. No c/o. Mental Status Patient Orientation: Normal For Age Attachments: Oxygen Transfers SCALE: Activities may be completed with or without assistive devices. 7-Gzcdhjuxwz-aalnamn completes the activity by him/herself with no assistance from a helper. 5-Set-up or Clean-up Assistance-helper sets up or cleans up; patient completes activity. [place] assists only prior to or following the activity. 4-Supervision or Touching Assistance-helper provides verbal cues and/or touching/steadying and/or contact guard assistance as patient completes activity. Assistance may be provided throughout the activity or intermittently. 3-Partial/Moderate Assistance-helper does LESS THAN HALF the effort. [place] lifts, holds or supports trunk or limbs, but provides less than half the effort. 2-Substantial/Maximal Assistance-helper does MORE THAN HALF the effort. [place] lifts or holds trunk or limbs and provides more than half the effort. 5-Fuitexmhv-cwdrtw does ALL the effort. Patient does none of the effort to complete the activity. Or, the assistance of 2 or more helpers is required for the patient to complete the activity. If activity was not attempted, code reason: 7-Patient Refused. 9-Not Applicable-not attempted and the patient did not perform the activity before the current illness, exacerbation or injury. 10-Not Attempted due to Environmental Limitations-(lack of equipment, weather restraints, etc.). 88-Not Attempted due to Medical Conditions or Safety Concerns. Roll Left & Right (QC): 5 Lying to Sitting/Side of Bed(Q: 5 Sit to Stand (QC): 5 Chair/Kww-qv-Lozol Xfer(QC): 5 Gait Training Does the Patient Walk?: Yes Distance: 800' Walk 10 feet (QC): 5 Walk 50 ft with 2 Turns(QC): 5 Walk 150 ft (QC): 5 Gait Assistive Device: FWW safe and functional Exercises Seated Therapy Exercises: Ankle pumps, Long arc quads Seated Reps: 12 Assessment Patient is up in recliner for breakfast. Patient tolerated treatment well. PT Outside Machinist Apprentice Goals Senior Living Goals PT Outside Machinist Apprentice Goals Time Frame: May 12, 2020 Roll Left & Right (QC): 6 Sit to Lying (QC): 6 Lying-Sitting on Side/Bed(QC): 6 Sit to Stand (QC): 6 Chair/Bqk-gv-Obydh Xfer(QC): 6 Toilet Transfer (QC): 6 Does the Patient Walk: Yes Walk 10 feet (QC): 6 Walk 50ft with 2 Turns (QC): 6 Walk 150 ft (QC): 6 1 Step (curb) (QC): 5 4 Steps (QC): 5 PT Plan Treatment/Plan Treatment Plan: Continue Plan of Care Treatment Plan: Bed Mobility, Education, Functional Activity Patricia, Functional Strength, Gait, Safety, Therapeutic Exercise, Transfers Treatment Duration: May 12, 2020 Frequency: 6 times per week Estimated Hrs Per Day: .25 hour per day Patient and/or Family Agrees t: Yes Time/GCodes Time In: 834 Time Out: 845 Total Billed Treatment Time: 11 Total Billed Treatment 1 visit FA 11 min ISAMAR JADE PT May 05, 2020 08:59
[2020-05-05 12:00] VITALS: BP 116/58
--- NOTE | 2020-05-05 13:05 | Progress Note - Hospitalist ---
Subjective HPI/CC On Admission Date Seen by Provider: May 05, 2020 Time Seen by Provider: 13:00 Subjective/Events-last exam Pt reports feeling much better but still very tired. No other complaints. Focused Exam Lactate Level 05/02/20 17:45: Lactic Acid Level 1.11 Objective Exam Vital Signs Vital Signs Date Time Temp Pulse Resp B/P (MAP) Pulse Ox O2 Delivery O2 Flow Rate FiO2 05/05/20 12:41 63 05/05/20 12:00 35.9 20 116/58 (77) 92 Nasal Cannula 2.50 Capillary Refill : General Appearance: No Apparent Distress, Obese Respiratory: Lungs Clear, No Respiratory Distress Cardiovascular: Regular Rate, Rhythm, No Murmur Results/Procedures Lab Laboratory Tests 05/05/20 05:12 Patient resulted labs reviewed. Assessment/Plan Assessment and Plan Assess & Plan/Chief Complaint FEBRILE ILLNESS WITH HYPOXIA - ACUTE ON CHRONIC RESPIRATORY FAILURE Continue Rocephin CTA negative for PE Blood culture with NGTD MILD DIASTOLIC CONGESTIVE HEART FAILURE WITH ELEVATED BNP - Echo shows preserved EF with grade 3 diastolic dysfunction - Repeat Lasix today, monitor I/O CHRONIC PAIN SYNDROME WITH CHRONIC OPIOID USE -Continue fentanyl at a lower dose, pain well controlled - PT/OT - Accepted to [facility] on Thursday already HYPERTENSION - Continue home meds CHRONIC ATRIAL FIBRILLATION - Continue home meds - On telemetry - Lovenox for stroke ppx DIABETES MELLITUS TYPE 2 - Continue Levemir - BS well controlled HYPERLIPIDEMIA Continue statin PERIPHERAL NEUROPATHY Continue gabapentin TERRI TREVINO MD May 05, 2020 13:05
[2020-05-05] MEDS ORDERED: FUROSEMIDE 40 MG/4 ML INJ (LASIX) IVP ONE (13:15)
[2020-05-05 15:47] VITALS: BP 126/64
[2020-05-05] MEDS: cefTRIAXone FOR IV USE 1,000 MG in WATER (STERILE) FOR INJECTION 10 ML IV SCH (16:29)
[2020-05-05] MEDS: ENOXAPARIN 40 MG/0.4 ML (LOVENOX) SYR SQ SCH (18:08)
[2020-05-05] MEDS: SIMvastatin 20 MG (ZOCOR) TAB PO SCH (20:08)
[2020-05-05] MEDS: polyethylene glycoL POWDER 17 GM (MIRALAX) PACK PO SCH (20:08)
[2020-05-05 20:59] VITALS: BP 149/71
[2020-05-06] VITALS (7 sets, daily range): BP systolic 115–147; BP diastolic 64–76
[2020-05-06] MEDS: inSUlin ASPART (NovoLOG) 1 UNIT/0.01 ML (CHARGE PER UNIT) SC SCH ×4 (05:59→21:14)
[2020-05-06] MEDS: CATHETER FLUSH 10 ML SYR IV SCH ×3 (06:02→22:02)
[2020-05-06] MEDS: PANTOPRAZOLE 20 MG TABLET (PROTONIX) PO SCH (08:21)
[2020-05-06] MEDS: DOCUSATE SODIUM 100 MG (COLACE) CAP PO SCH ×2 (08:21→20:04)
[2020-05-06] MEDS: CARVEDILOL 12.5 MG (COREG) TABLET PO SCH ×2 (08:21→20:03)
[2020-05-06] MEDS: GABAPENTIN 100 MG (NEURONTIN) CAP PO SCH ×3 (08:21→20:04)
--- NOTE | 2020-05-06 12:34 | Progress Note - Hospitalist ---
Subjective HPI/CC On Admission Date Seen by Provider: May 06, 2020 Time Seen by Provider: 12:28 Subjective/Events-last exam Pt reports doing well. Had some pain earlier but improved with pain medicine. otherwise no complaints. Objective Exam Vital Signs Vital Signs Date Time Temp Pulse Resp B/P (MAP) Pulse Ox O2 Delivery O2 Flow Rate FiO2 05/06/20 12:23 62 05/06/20 12:00 35.1 20 121/67 (85) 96 Nasal Cannula 2.50 Capillary Refill : General Appearance: No Apparent Distress, Chronically ill Respiratory: Lungs Clear, No Respiratory Distress Cardiovascular: Regular Rate, Rhythm Neurologic/Psychiatric: Alert, Oriented x3 Results/Procedures Lab Patient resulted labs reviewed. Assessment/Plan Assessment and Plan Assess & Plan/Chief Complaint FEBRILE ILLNESS WITH HYPOXIA - ACUTE ON CHRONIC RESPIRATORY FAILURE - Continue Rocephin - CTA negative for PE -Blood culture with NGTD MILD DIASTOLIC CONGESTIVE HEART FAILURE WITH ELEVATED BNP - Echo shows preserved EF with grade 3 diastolic dysfunction - Diuresed well yesterday, 5 voids CHRONIC PAIN SYNDROME WITH CHRONIC OPIOID USE - Continue fentanyl at a lower dose, pain well controlled - PT/OT - Accepted to [facility] on Thursday already HYPERTENSION - Continue home meds CHRONIC ATRIAL FIBRILLATION - Continue home meds - On telemetry - Lovenox for stroke ppx DIABETES MELLITUS TYPE 2 - Continue Levemir - BS well controlled HYPERLIPIDEMIA Continue statin PERIPHERAL NEUROPATHY Continue gabapentin TERRI TREVINO MD May 06, 2020 12:34
[2020-05-06] MEDS: cefTRIAXone FOR IV USE 1,000 MG in WATER (STERILE) FOR INJECTION 10 ML IV SCH (15:59)
[2020-05-06] MEDS: fentaNYL PATCH 25 MCG (DURAGESIC) TD SCH (18:04)
[2020-05-06] MEDS: FENTANYL 25 MCG PATCH REMOVAL TP SCH (18:05)
[2020-05-06] MEDS: ENOXAPARIN 40 MG/0.4 ML (LOVENOX) SYR SQ SCH (18:05)
[2020-05-06] MEDS: polyethylene glycoL POWDER 17 GM (MIRALAX) PACK PO SCH (19:35)
[2020-05-06] MEDS: SIMvastatin 20 MG (ZOCOR) TAB PO SCH (20:05)
[2020-05-07 04:00] VITALS: BP 130/59
[2020-05-07] MEDS: inSUlin ASPART (NovoLOG) 1 UNIT/0.01 ML (CHARGE PER UNIT) SC SCH ×2 (06:01→11:14)
[2020-05-07] MEDS: CATHETER FLUSH 10 ML SYR IV SCH (06:29)
[2020-05-07 08:00] VITALS: BP 145/67
[2020-05-07] MEDS: CARVEDILOL 12.5 MG (COREG) TABLET PO SCH (08:43)
[2020-05-07] MEDS: GABAPENTIN 100 MG (NEURONTIN) CAP PO SCH (08:44)
[2020-05-07] MEDS: DOCUSATE SODIUM 100 MG (COLACE) CAP PO SCH (08:44)
[2020-05-07] MEDS: PANTOPRAZOLE 20 MG TABLET (PROTONIX) PO SCH (08:44)
--- NOTE | 2020-05-07 09:00 | Discharge Summary ---
Diagnosis/Chief Complaint Date of Admission May 03, 2020 at 03:15 Date of Discharge Discharge Date: May 07, 2020 Discharge Time: 09:00 Admission Diagnosis Admission Diagnosis FEBRILE ILLNESS HYPOXIA - ACUTE ACUTE RESPIRATORY FAILURE 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 CHRONIC PAIN SYNDROME CHRONIC OPIOID USE HYPERTENSION CHRONIC ATRIAL FIBRILLATION DIABETES MELLITUS TYPE 2 HYPERLIPIDEMIA PERIPHERAL NEUROPATHY Discharge Diagnosis FEBRILE ILLNESS HYPOXIA - ACUTE ACUTE RESPIRATORY FAILURE MILD DIASTOLIC CONGESTIVE HEART FAILURE ELEVATED BNP CHRONIC PAIN SYNDROME CHRONIC OPIOID USE HYPERTENSION CHRONIC ATRIAL FIBRILLATION DIABETES MELLITUS TYPE 2 HYPERLIPIDEMIA PERIPHERAL NEUROPATHY PULMONARY HYPERTENSION Reason Hospital Visit PT IS AN 85 Y/O FEMALE WHO IS WELL KNOWN TO ME FROM CLINIC. SHE HAD AN OFFICE APPOINTMENT YESTERDAY AND WAS A DIRECT ADMISSION FOR EVALUATION DUE TO ACUTE AND SEVERE HYPOXIA. SHE WAS CONFUSED, LETHARGIC AND HYPOXIC, CONCERN FOR FLUID OVERLOAD VERSUS PNEUMONIA. UPON ADMISSION SHE HAD A NEW OXYGEN REQUIREMENT OF 2-3 LITERS OF OXYGEN. HER FAMILY REPORTS PROGRESSIVE WEAKNESS AT HOME WITH CONFUSION THIS MORNING. Discharge Summary Discharge Physical Examination Allergies: Coded Allergies: No Known Drug Allergies (Unverified , 11/16/19) Vitals & I&Os General Appearance: Alert, Oriented X3, Cooperative, No Acute Distress HEENT: Atraumatic Respiratory: Other (decreased air movement throughout) Cardiovascular: Regular Rate Abdominal: Normal Bowel Sounds, Soft Extremities: No Clubbing, No Cyanosis Skin: No Rashes Neuro: Normal Speech, Cranial Nerves 3-12 NL Psych/Mental Status: Mental Status NL, Mood NL Hospital Course Was the Problem List Reviewed?: Yes FEBRILE ILLNESS HYPOXIA - ACUTE ACUTE RESPIRATORY FAILURE MILD DIASTOLIC CONGESTIVE HEART FAILURE ELEVATED BNP CHRONIC PAIN SYNDROME CHRONIC OPIOID USE HYPERTENSION CHRONIC ATRIAL FIBRILLATION DIABETES MELLITUS TYPE 2 HYPERLIPIDEMIA PERIPHERAL NEUROPATHY FEBRILE ILLNESS WITH HYPOXIA - ACUTE AND ACUTE RESPIRATORY FAILURE - STARTED ON ROCEPHIN, WILL MONITOR SYMPTOMS, MONITOR BLOOD CULTURE REPORT, REPEAT LABS IN MORNING. - CT ANGIO PENDING WELL- D-DIMER WAS ELEVATED MILD DIASTOLIC CONGESTIVE HEART FAILURE WITH ELEVATED BNP - CHECK ECHO - WAITING ON REPORT - DOSE OF LASIX PRN - MONITOR OUTPUT CHRONIC PAIN SYNDROME WITH CHRONIC OPIOID USE - RESTARTED FENTANTYL, DOSE DECREASED - STARTED THERAPY, WILL NEED SHELTER PLACEMENT ON DISCHARGE HYPERTENSION - RESUME HOME REGIMEN CHRONIC ATRIAL FIBRILLATION - RESUME HOME REGIMEN - STARTED XARELTO ON DISCHARGE DIABETES MELLITUS TYPE 2 - HOLD GLIPIZIDE - RESTARTED LONG ACTING INSULIN - LEVEMIR AT 18 UNITS - MONITOR FSBS FOR NEEDS TO ADJUST REGIMEN HYPERLIPIDEMIA - RESTARTED STATIN THERAPY PERIPHERAL NEUROPATHY - RESTARTED GABAPENTIN DISCHARGE TO SHELTER ON DISCHARGE Pending Labs Discharge Instructions to patient/family Please see electronic discharge instructions given to patient. Discharge Medications Reviewed and agree with Discharge Medication list on patient's Discharge Instruction sheet DEANGELO FOSTER MD May 07, 2020 09:00
[2020-05-07] MEDS ORDERED: ACHYD1T PO (09:04)
[2020-05-07] MEDS ORDERED: FENT1PAT8 TD (09:04)
--- NOTE | 2020-05-07 09:07 | Discharge Inst-Skilled Nursing ---
Discharge Inst-Skilled NF Reconcile Patient Problems Problems Reviewed?: Yes Patient Instructions Patient Problems: DIABETES HYPERTENSION GENERALIZED WEAKNESS Consult/Follow Up/Orders Follow Up Appt.: 1 [facility] Skilled NF Admit to: Via [facility] [place] Certification (SNF) I certify that SNF services are required to be given on an inpatient basis because of the above named patient's need for assisted care on a continuing basis for the conditions(s) for which he/she was receiving inpatient hospital services prior to his/her transfer to the SNF. Shelter Facility Order: Nursing Services, Technical Writing Lead/Mgr-Evaluate & Treat, Physical Therapy-Evaluate & Treat Oxygen Delivery Method: Nasal Cannula Oxygen Flow Rate L/min (Range): 3 Discharge Diet: ADA Diet Daily Activity as Tolerated: Yes Resuscitation Status: Do Not Resuscitate New & Resume Previous Orders New & Resume Previous Orders FSBS AC AND HS, CALL PHYSICIAN IF BLOOD GLUCOSE IS GREATER THAN 350 OR LESS THAN 60 Deangelo Yessy Figueroa May 07, 2020 09:04 Medication List: Active Scripts Active HYDROcodone/APAP 10/325 TABLET (Acetaminophen/Hydrocodone Bitart) 1 Ea Tab 1 Ea PO Q6HR PRN Fentanyl Patch 25 MCG (Fentanyl) 1 Each Patch.td72 25 Mcg TD Q72H CALL DR OFFICE PRIOR TO PLACEMENT OF LAST PATCH FOR REFILLS Reported Neurontin (Gabapentin) 300 Mg Capsule 300 Mg PO HS K-Tab ER (Potassium Chloride) 10 Meq Tablet.er 10 Meq PO 0800,1600 Fentanyl Patch 12 MCG (Fentanyl) 1 Each Patch.td72 12 Mcg TD Q72H USES A 25MCG AND A 12MCG PATCH APPLIES AT THE SAME TIME) EVERY 72 HOURS Ventolin Hfa (Albuterol Sulfate) 18 Gm Hfa.aer.ad 1-2 Puff INH Q4H PRN Tresiba Flextouch U-200 (Insulin Degludec) 200 Unit/1 Ml Insuln.pen 29 Unit SQ HS Gabapentin 100 Mg Capsule 200 Mg PO 1600 TAKES 2 (100MG) CAPS Furosemide 20 Mg Tablet 40 Mg PO 0800,1600 TAKES 2 (20MG) TABS Omeprazole 20 Mg Capsule.dr 20 Mg PO 1200 Escitalopram Oxalate 20 Mg Tablet 20 Mg PO HS Gabapentin 100 Mg Capsule 100 Mg PO DAILY Simvastatin 20 Mg Tablet 20 Mg PO HS Colace (Docusate Sodium) 100 Mg Capsule 100 Mg PO BID Glipizide ER (Glipizide) 5 Mg Tab.er.24 5 Mg PO DAILY Carvedilol 25 Mg Tablet 25 Mg PO BID Lab results: Laboratory Tests Test 05/06/20 11:38 05/06/20 17:23 05/06/20 21:13 05/07/20 05:57 Range/Units Glucometer 189 H 217 H 208 H 165 H 70-110 MG/DL My orders: Orders - DEANGELO FIGUEROA MD Attending Discharge Inpt/Inobs (05/07/20 09:01) DEANGELO FIGUEROA MD May 07, 2020 09:07
[2020-05-07 12:00] VITALS: BP 121/60
[2020-05-07 13:20] VITALS: BP 121/60
--- NOTE | 2020-05-08 13:51 | Physician Query Clarification ---
PQ-CHF Specificity Admission Date: May 03, 2020 at 03:15 Discharge Date: May 07, 2020 at 13:20 Dr. Figueroa, The medical record reflects the following clinical scenario: History/Risk Factors: acute on chronic respiratory failure w/hypoxia, HTN, mild diastolic CHF, chronic atrial fibrillation, DM w/p neuropathy Clinical Findings: BNP 223.5, weakness, confusion, lethargic, hypoxic Treatment: 40 mg IVP Question: Can you further specify the acuity &/or type of CHF per the clinical indicators above? Please document a response in the Progress Notes or Discharge Summary. 1. Acuity: Acute, Chronic or Acute on Chronic 2. Type: Systolic, Diastolic or Systolic & Diastolic 3. Unspecified: CHF cannot be further specified regarding type or acuity 4. Other, with explanation of clinical findings 5. Clinically undetermined, no explanation for clinical findings PHYSICIAN RESPONSE Acuity: Acute Type: Diastolic Please remember a lack of response to the above will prompt a phone page by CDI/Coding staff. In responding to this query, please exercise your independent professional judgment. The purpose of this communication is to more accurately reflect the complexity of your patients condition. The fact that a question is asked does not imply that any particular answer is desired or expected. Thank you for your timely response to this clarification. Requestors name: [email or web address] THIS PHYSICIAN QUERY FORM IS A PERMANENT PART OF THE MEDICAL RECORD DONNELL ELLIOTT May 08, 2020 13:51 DEANGELO FIGUEROA MD May 23, 2020 12:46
--- NOTE | 2020-05-08 13:57 | Physician Query Clarification ---
PQ-Further Specificity Admission/Discharge Admission Date: May 03, 2020 at 03:15 Discharge Date: May 07, 2020 at 13:20 Dr. Figueroa, The medical record reflects the following clinical scenario: History/Risk Factors: acute on chronic respiratory failure w/hypoxia, HTN w/mild diastolc CHF, chronic atrial fibrillation, DM w/ p neuropathy Clinical Findings: hypoxic, lethargic, weakness, confusion Treatment: IV Rocephin, monitoring Question: Can you further specify the underlying cause of the acute on chronic respiratory failure per the clinical indicators above? Please document a response in the Progress Notes or Discharge Summary. 1. acute on chronic respiratory failure d/t mild diastolic CHF 2. acute on chronic respiratory failure underlying cause undetermined 3. Other, with explanation of the clinical findings. 4. Clinically undetermined, no explanation for the clinical findings. PHYSICIAN RESPONSE Can you specify per above: 1 Please remember a lack of response to the above will prompt a phone page by CDI/Coding staff. In responding to this query, please exercise your independent professional judgment. The purpose of this communication is to more accurately reflect the complexity of your patients condition. The fact that a question is asked does not imply that any particular answer is desired or expected. Thank you for your timely response to this clarification. Requestors name: [email or web address] THIS PHYSICIAN QUERY FORM IS A PERMANENT PART OF THE MEDICAL RECORD DONNELL ELLIOTT May 08, 2020 13:57 DEANGELO FIGUEROA MD May 23, 2020 12:47
== END 2020-05-07 13:20 | DRG 291 ==
LOC: UNDOADMOB 16:02 → 4TH 16:02 → OBSVTOIN 05-03 03:13 → INTOOBSV 05-03 03:15 → UNDODISIN 05-07 13:20
PROVIDERS: ADMIT Family Medicine; ATTEND Family Medicine
DX: I11.0 Hypertensive heart disease with heart failure (principal); J96.21 Acute and chronic respiratory failure with hypoxia; I50.31 Acute diastolic (congestive) heart failure; I48.20 Chronic atrial fibrillation, unspecified; R32 Unspecified urinary incontinence; E11.42 Type 2 diabetes mellitus with diabetic polyneuropathy; E78.5 Hyperlipidemia, unspecified; Z66 Do not resuscitate; Z20.822 Contact with and (suspected) exposure to COVID-19; K21.9 Gastro-esophageal reflux disease without esophagitis; E78.00 Pure hypercholesterolemia, unspecified; M19.91 Primary osteoarthritis, unspecified site; F41.9 Anxiety disorder, unspecified; F32.9 Major depressive disorder, single episode, unspecified; G89.29 Other chronic pain; Z79.4 Long term (current) use of insulin; Z87.891 Personal history of nicotine dependence; Z79.891 Long term (current) use of opiate analgesic; M40.209 Unspecified kyphosis, site unspecified
CPT/HCPCS: 36415; 71046; 71275; 80053; 81000; 82962; 83605; 83880; 85025; 85027; 85379; 87040; 87635; 93005; 93306; 94760; 99211; G0378

== ENCOUNTER 2020-05-27 13:04 | Observation (INO) | payer MEDICARE ==
[~2020-05-27] VITALS: Ht 170 cm; Wt 113.0 kg
[~2020-05-27 13:04] MED LIST changes: +ALBU18HF2 INH; +FEN12TD TD; +FENT1PAT8 TD; +GABA300C PO; +POTA10TA PO
[2020-05-27 14:09] LABS: BASOPHILS % (AUTO) 0 % (0-10); EOSINOPHILS % (AUTO) 0 % (0-10); HEMATOCRIT 39 % (35-52); HEMOGLOBIN 11.7 g/dL (11.5-16.0); LYMPHOCYTES # (AUTO) 1.7 10^3/uL (1.0-4.0); LYMPHOCYTES % (AUTO) 21 % (12-44); MEAN CORPUSCULAR HEMOGLOBIN 30 pg (25-34); MEAN CORPUSCULAR HGB CONC 30 g/dL (32-36); MEAN CORPUSCULAR VOLUME 98 fL (80-99); MEAN PLATELET VOLUME 11.2 fL (9.0-12.2); MONOCYTES # (AUTO) 0.6 10^3/uL (0.0-1.0); MONOCYTES % (AUTO) 8 % (0-12); NEUTROPHILS # (AUTO) 5.5 10^3/uL (1.8-7.8); NEUTROPHILS % (AUTO) 70 % (42-75); PLATELET COUNT 175 10^3/uL (130-400); WHITE BLOOD COUNT 7.9 10^3/uL (4.3-11.0)
--- NOTE | 2020-05-27 14:11 | ED General ---
General Chief Complaint: General Problems/Pain Stated Complaint: CONFUSION/WEAKNESS Nursing Triage Note: PT PRESENTS TO ED WITH COMPLAINTS OF INCREASED WEAKNESS, MALAISE, CONFUSION, AND LATHARGY SINCE WAKING UP THIS AM. PT REPORTS SHE CALLED EMS AND WAS TAKEN TO [place]. REPORTS THEY DID LABS AND THEN SHE LEFT AMA TO COME TO [facility]. PT [facility] REPORTS PT HAD A SIMILAR EPISODE A FEW WEEKS AGO AND WAS SEEN AT [facility]. Nursing Sepsis Screen: No Definite Risk History of Present Illness Date Seen by Provider: May 27, 2020 Time Seen by Provider: 13:40 Initial Comments Patient is an 85-year-old who presents to the emergency department today with a chief complaint of lethargy, confusion, generalized malaise some abdominal pain onset this morning prior to getting out of bed. Patient lives at home by herself and apparently her grandson went over to the house to help her get up and around. He found her confused and repeating statements. Granddaughter is currently at the bedside to provide further history. Initially the patient was taken by ambulance from home to [facility] in [facility] however they desired that the patient be seen at [facility] and signed her out AMA from that facility and brought her to us. Granddaughter states that the patient recently got out of [facility] after being admitted here to the hospital for a presentation very similar to this one. Patient denies fevers. She has had some nausea with her abdominal pain. No vomiting. No chest pain or shortness of breath or productive cough. No falls, traumas or injuries reported. No difficulty with urination. The patient states that she has been constipated with her last bowel movement 2 days ago. All other review of systems reviewed and negative except as stated above. Timing/Duration: 4-6 Hours Severity: Moderate Associated Systoms: Headaches (mild), Nausea/Vomiting (nausea without vomiti ng), Weakness Allergies and Home Medications Allergies Coded Allergies: No Known Drug Allergies (Unverified , 11/16/19) Home Medications Albuterol Sulfate 18 Gm Hfa.aer.ad, 1-2 PUFF INH Q4H PRN for SHORTNESS OF BREATH, (Reported) Carvedilol 25 Mg Tablet, 25 MG PO BID, (Reported) Docusate Sodium 100 Mg Capsule, 100 MG PO BID, (Reported) Escitalopram Oxalate 20 Mg Tablet, 20 MG PO HS, (Reported) Fentanyl 1 Each Patch.td72, 25 MCG TD Q72H CALL DR OFFICE PRIOR TO PLACEMENT OF LAST PATCH FOR REFILLS Prescribed by: DEANGELO FIGUEROA on 05/07/20903 Furosemide 20 Mg Tablet, 40 MG PO 0800,1600, (Reported) TAKES 2 (20MG) TABS Gabapentin 100 Mg Capsule, 100 MG PO DAILY, (Reported) Gabapentin 100 Mg Capsule, 200 MG PO 1600, (Reported) TAKES 2 (100MG) CAPS Gabapentin 300 Mg Capsule, 300 MG PO HS, (Reported) Hydrocodone Bit/Acetaminophen 1 Ea Tab, 1 EA PO Q6HR PRN for PAIN-MODERATE (5-7) Prescribed by: DEANGELO FIGUEROA on 05/07/20903 Insulin Degludec 200 Unit/1 Ml Insuln.pen, 29 UNIT SQ HS, (Reported) Omeprazole 20 Mg Capsule.dr, 20 MG PO 1200, (Reported) Potassium Chloride 10 Meq Tablet.er, 10 MEQ PO 0800,1600, (Reported) Simvastatin 20 Mg Tablet, 20 MG PO HS, (Reported) Patient Home Medication List Home Medication List Reviewed: Yes Review of Systems Review of Systems Constitutional: see HPI EENTM: no symptoms reported Respiratory: no symptoms reported Cardiovascular: no symptoms reported Gastrointestinal: abdominal pain, nausea, other (constipation) Genitourinary: no symptoms reported : No Musculoskeletal: muscle cramps Skin: no symptoms reported All Other Systems Reviewed Negative Unless Noted: Yes Past Vaywgvv-Kfylrw-Igoewk Hx Patient Social History Alcohol Use: Denies Use Smoking Status: Former Smoker Type Used: Cigarettes Former Smoker, Quit: Dec 27, 1995 2nd Hand Smoke Exposure: No Recent Infectious Disease Expo: No Recent Hopitalizations: No Immunizations Up To Date Tetanus Booster (TDap): Unknown Date of Pneumonia Vaccine: Aug 08, 2011 Date of Influenza Vaccine: Dec 08, 2019 Seasonal Allergies Seasonal Allergies: No Past Medical History Surgeries: Yes (bilat hip replacement, wrist surgery, port/REMOVAL, brain aneurysm removed) Hysterectomy, Joint Replacement, Orthopedic Respiratory: Yes (O2 2L NC AT NIGHT) Currently Using CPAP: No Currently Using BIPAP: No Cardiac: Yes High Cholesterol, Hypertension Neurological: Yes (brain anuerysm removed) 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 Disorders: No Female 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 Disorders: Denies Sexually Transmitted Disease: No HIV/AIDS: No Genitourinary: Yes (HX RENAL FAILURE) Renal Failure Gastrointestinal: Yes Gastroesophageal Reflux, Chronic Constipation Musculoskeletal: Yes Degenerate Disk Disease, Arthritis Endocrine: Yes Diabetes, Non-Insulin dep HEENT: Yes (GLASSES, DENTURES) Loss of Vision: Denies Hearing Impairment: Denies Cancer: No Psychosocial: Yes Anxiety, Depression Integumentary: No Blood Disorders: No Adverse Reaction/Blood Tranf: No (N/A) Family Medical History Myocardial infarction 19 MOTHER Heart Disease, Hypertension Physical Exam Vital Signs Vital Signs - First Documented 05/27/20 13:31 Temp 36.9 Pulse 69 Resp 20 B/P (MAP) 115/64 (81) Pulse Ox 97 O2 Delivery Nasal Cannula O2 Flow Rate 2.00 Capillary Refill : Less Than 3 Seconds Height, Weight, BMI Height: 5'8.00" Weight: 212lbs. 7.0oz. 96.305983or; 39.00 BMI Method:Stated General Appearance: No Apparent Distress, WD/WN Eyes: Bilateral Eye Normal Inspection, Bilateral Eye PERRL, Bilateral Eye EOMI HEENT: PERRL/EOMI, Normal ENT Inspection Neck: Normal Inspection Respiratory: Lungs Clear, Normal Breath Sounds, No Accessory Muscle Use, No Respiratory Distress Cardiovascular: Regular Rate, Rhythm Gastrointestinal: Soft, Tenderness (Mild tenderness right lower quadrant, left upper quadrant) Extremity: Normal Inspection, Normal Range of Motion, No Calf Tenderness, No Pedal Edema Neurologic/Psychiatric: Alert, Oriented x3, No Motor/Sensory Deficits, Depressed Affect, Disoriented (Per granddaughter the patient is "disoriented" and asking repetitive questions); No Motor Weakness, No Sensory Deficit Skin: Normal Color, Warm/Dry Progress/Results/Core Measures Suspected Sepsis Recent Fever Within 48 Hours: No Infection Criteria Present: None New/Unexplained Altered Menta: Yes Sepsis Screen: No Definite Risk SIRS Temperature: Pulse: 69 Respiratory Rate: 20 Laboratory Tests 05/27/20 14:02: White Blood Count 7.9 Blood Pressure 115 /64 Mean: 81 Laboratory Tests 05/27/20 14:02: Creatinine 0.90, Platelet Count 175 Results/Orders Lab Results Laboratory Tests Test 05/27/20 14:02 Range/Units White Blood Count 7.9 4.3-11.0 10^3/uL Red Blood Count 3.93 3.80-5.11 10^6/uL Hemoglobin 11.7 11.5-16.0 g/dL Hematocrit 39 35-52 % Mean Corpuscular Volume 98 80-99 fL Mean Corpuscular Hemoglobin 30 25-34 pg Mean Corpuscular Hemoglobin Concent 30 L 32-36 g/dL Red Cell Distribution Width 12.5 10.0-14.5 % Platelet Count 175 130-400 10^3/uL Mean Platelet Volume 11.2 9.0-12.2 fL Immature Granulocyte % (Auto) 0 % Neutrophils (%) (Auto) 70 42-75 % Lymphocytes (%) (Auto) 21 12-44 % Monocytes (%) (Auto) 8 0-12 % Eosinophils (%) (Auto) 0 0-10 % Basophils (%) (Auto) 0 0-10 % Neutrophils # (Auto) 5.5 1.8-7.8 10^3/uL Lymphocytes # (Auto) 1.7 1.0-4.0 10^3/uL Monocytes # (Auto) 0.6 0.0-1.0 10^3/uL Eosinophils # (Auto) 0.0 0.0-0.3 10^3/uL Basophils # (Auto) 0.0 0.0-0.1 10^3/uL Immature Granulocyte # (Auto) 0.0 0.0-0.1 10^3/uL Sodium Level 138 135-145 MMOL/L Potassium Level 3.9 3.6-5.0 MMOL/L Chloride Level 100 98-107 MMOL/L Carbon Dioxide Level 29 21-32 MMOL/L Anion Gap 9 5-14 MMOL/L Blood Urea Nitrogen 18 7-18 MG/DL Creatinine 0.90 0.60-1.30 MG/DL Estimat Glomerular Filtration Rate 60 BUN/Creatinine Ratio 20 Glucose Level 175 H 70-105 MG/DL Calcium Level 8.6 8.5-10.1 MG/DL My Orders Orders - FESTUS SHARMA MD Ct Head Wo (05/27/20 13:46) Ct Abdomen/Pelvis Wo (05/27/20 13:46) Cbc With Automated Diff (05/27/20 13:46) Basic Metabolic Panel (05/27/20 13:46) Ed Iv/Invasive Line Start (05/27/20 13:46) Vital Signs/I&O 05/27/20 13:31 Temp 36.9 Pulse 69 Resp 20 B/P (MAP) 115/64 (81) Pulse Ox 97 O2 Delivery Nasal Cannula O2 Flow Rate 2.00 Capillary Refill : Less Than 3 Seconds Blood Pressure Mean: 81 Progress Note : Time: 15:23 Progress Note Patient noted to have significant hypoxia, desatting down to 83% on room air. Her nasal cannula oxygen had been turned off. Granddaughter in the room states that she is only supposed to wear oxygen at night as far as she knows at home. Patient was placed on 3 L and popped right up to 92 to 94%. Patient still states that she feels nauseated. She has mild abdominal discomfort. We will give her 4 of Zofran to treat her nausea. CT scan of the abdomen and pelvis has been reviewed, no acute findings. CT brain has been reviewed as well no acute findings there. Labs are reviewed and are all within normal limits except for a mildly elevated glucose at 160. Patient seems fairly oriented at this point. She is oriented to self, place and date. Granddaughter states that she still has some repetitive questioning. Case is discussed with Dr. Figueroa will admit the patient observation for further evaluation management of her abdominal pain, nausea and altered mental status. Departure Communication (Admissions) Time/Spoke to Admitting Phy: 15:[address] Figueroa who accepts the patient for observation admission Impression Primary Impression: Abdominal pain Qualified Codes: R10.84 - Generalized abdominal pain Additional Impressions: Hypoxia Altered mental status Qualified Codes: R41.82 - Altered mental status, unspecified Disposition: ADMITTED INPATIENT Condition: Stable Admissions Decision to Admit Reason: Admit from ER (General) Decision to Admit/Date: May 27, 2020 Time/Decision to Admit Time: 15:26 Departure-Patient Inst. Referrals: DEANGELO FIGUEROA MD (PCP/Family) Primary Care Physician FESTUS SHARMA MD May 27, 2020 14:11
[2020-05-27 14:21] LABS: POTASSIUM 3.9 MMOL/L (3.6-5.0)
[2020-05-27 14:22] LABS: CALCIUM 8.6 MG/DL (8.5-10.1)
[2020-05-27 14:27] LABS: CREATININE SERUM 0.9 MG/DL (0.60-1.30)
--- NOTE | 2020-05-27 14:27 | Diagnostic Imaging Report ---
PROCEDURE: CT head without contrast. TECHNIQUE: Multiple contiguous axial images were obtained through the brain without the use of intravenous contrast. Auto Exposure Controls were utilized during the CT exam to meet ALARA standards for radiation dose reduction. INDICATION: Altered mental status with weakness and malaise. COMPARISON: Comparison made with a prior study from February 07, 2012. FINDINGS: There are previous operative changes of a right pterional craniotomy performed for previous aneurysm clipping which appears to be near the level of the anterior communicating artery. 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 There are no findings of new territorial loss of sommer-white differentiation. There is no acute hemorrhage. There is no mass effect or shift. There is no hydrocephalus. There is no abnormal extra-axial fluid collection. The basilar cisterns appear patent. The mastoid air cells and middle ears are clear. There is a large mucous retention cyst or polyp in the right maxillary sinus. The orbital contents are unremarkable. IMPRESSION: 1. Previous operative changes of pterional craniotomy and aneurysm clipping with stable encephalomalacia within the right anterior frontal lobe. 2. No CT findings of an acute intracranial abnormality. 3. Large mucous retention cyst or polyp in the right maxillary sinus. Dictated by: Dictated on workstation # [id number]
--- NOTE | 2020-05-27 14:33 | Diagnostic Imaging Report ---
PROCEDURE: CT abdomen and pelvis without contrast. TECHNIQUE: Multiple contiguous axial images were obtained through the abdomen and pelvis without the use of intravenous contrast. Auto Exposure Controls were utilized during the CT exam to meet ALARA standards for radiation dose reduction. INDICATION: Abdominal pain and right lower quadrant pain. FINDINGS: Cardiomegaly is present with a small pericardial effusion and trace pleural effusions. The lung bases otherwise demonstrate some minimal dependent atelectasis. There is a moderate hiatal hernia. The noncontrast appearance of the liver is unremarkable. There are no radiodense gallstones or findings of biliary dilatation. The spleen is normal in size. The pancreas is atrophic without focal abnormality. There is no adrenal mass. There are low-density left renal cysts. The kidneys are nonobstructed without evidence of urolithiasis. The stomach is nondistended. There are no findings of abnormal small bowel dilation. The colon is decompressed. There is sigmoid and left colon diverticulosis without current evidence of diverticulitis. The urinary bladder is nondistended. The patient appears status post hysterectomy. There is no pelvic mass or pelvic free fluid. The patient is status post bilateral hip arthroplasties. There are advanced degenerative changes throughout the lumbar spine without acute or suspicious osseous abnormality. There are atherosclerotic calcifications within a normal-caliber aorta. IMPRESSION: 1. No CT findings of an acute inflammatory or obstructive process within the abdomen or pelvis. 2. No findings of bowel obstruction. Uncomplicated diverticulosis noted. 3. No free fluid. 4. Moderate hiatal hernia. 5. Cardiomegaly with small pericardial effusion and trace pleural effusions. 6. Left renal cysts. No hydronephrosis or urolithiasis. 7. Advanced multilevel degenerative disc disease. Bilateral hip arthroplasties noted. Dictated by: Dictated on workstation # [id number]
[2020-05-27] MEDS ORDERED: CARVEDILOL 12.5 MG (COREG) TABLET PO SCH (18:00)
[2020-05-27 18:34] VITALS: BP 115/64
[2020-05-27] MEDS ORDERED: RT-ALBUTEROL INHALER HFA (VENTOLIN HFA) 18 GM IH PRN (18:45)
[2020-05-27] MEDS: CARVEDILOL 12.5 MG (COREG) TABLET PO SCH (20:22)
[2020-05-27 20:52] VITALS: BP 138/67
[2020-05-27] MEDS: inSUlin ASPART (NovoLOG) 1 UNIT/0.01 ML (CHARGE PER UNIT) SC SCH (22:12)
[2020-05-27 23:50] VITALS: BP 116/56
[2020-05-28 04:27] VITALS: BP 111/62
[2020-05-28] MEDS ORDERED: ACETAMINOPHEN 500 MG TAB (TYLENOL) PO PRN (04:30)
[2020-05-28] MEDS ORDERED: KETOROLAC 15 MG/ML VIAL IVP PRN (04:30)
[2020-05-28] MEDS ORDERED: KETOROLAC 15 MG/ML VIAL ONE (04:46)
[2020-05-28] MEDS: inSUlin ASPART (NovoLOG) 1 UNIT/0.01 ML (CHARGE PER UNIT) SC SCH ×2 (06:11→11:17)
--- NOTE | 2020-05-28 07:58 | Progress Note ---
Subjective Subjective Date Seen by Provider: May 28, 2020 Time Seen by Provider: 07:35 Pt seen and examined. She was laying in bed, awake, appears mildly discomforted. She denies chest pain, SOB, N/V, abd pain. She is feeling better since being admitted, but still feels fatigued. She has no other concerns/complaints this morning. Review of Systems General: No Chills; Fatigue, Malaise HEENT: No Head Aches, No Ear Pain Pulmonary: No Dyspnea, No Cough, No Pleuritic Chest Pain Cardiovascular: No: Chest Pain, Palpitations, Lt Headedness Gastrointestinal: Abdominal Pain (mild discomfort); No: Nausea, Vomiting Genitourinary: No Dysuria, No Hematuria Musculoskeletal: No: neck pain, back pain Neurological: Weakness, Numbness (chronic numbness/tingling to BLE) All Other Systems Reviewed All Other Systems Reviewed: Yes Objective Exam Vital Signs Vital Signs - First Documented 05/27/20 13:31 Temp 36.9 Pulse 69 Resp 20 B/P (MAP) 115/64 (81) Pulse Ox 97 O2 Delivery Nasal Cannula O2 Flow Rate 2.00 Capillary Refill : Less Than 3 Seconds General Appearance: WD/WN, Other (mild discomfort) Eyes: Bilateral Eye Normal Inspection, Bilateral Eye PERRL, Bilateral Eye EOMI HEENT: PERRL/EOMI, Normal ENT Inspection Neck: Full Range of Motion, Normal Inspection, Non Tender, Supple Respiratory: Lungs Clear, Normal Breath Sounds, No Accessory Muscle Use, No Respiratory Distress Cardiovascular: Regular Rate, Rhythm, Normal Peripheral Pulses Gastrointestinal: Normal Bowel Sounds, Non Tender, Soft, Tenderness (Mild tenderness right lower quadrant, left upper quadrant) Rectal: Deferred Back: Normal Inspection, No CVA Tenderness, No Vertebral Tenderness Extremity: Normal Capillary Refill, Normal Inspection, Normal Range of Motion, No Calf Tenderness, No Pedal Edema Neurologic/Psychiatric: Alert, Oriented x3, No Motor/Sensory Deficits, Depressed Affect; No Disoriented (Per granddaughter the patient is "disoriented" and asking repetitive questions), No Motor Weakness, No Sensory Deficit Skin: Normal Color, Warm/Dry Lymphatic: No Adenopathy Results Lab Laboratory Tests 05/27/20 14:02: White Blood Count 7.9, Red Blood Count 3.93, Hemoglobin 11.7, Hematocrit 39, Mean Corpuscular Volume 98, Mean Corpuscular Hemoglobin 30, Mean Corpuscular Hemoglobin Concent 30L, Red Cell Distribution Width 12.5, Platelet Count 175, Mean Platelet Volume 11.2, Immature Granulocyte % (Auto) 0, Neutrophils (%) (Auto) 70, Lymphocytes (%) (Auto) 21, Monocytes (%) (Auto) 8, Eosinophils (%) (Auto) 0, Basophils (%) (Auto) 0, Neutrophils # (Auto) 5.5, Lymphocytes # (Auto) 1.7, Monocytes # (Auto) 0.6, Eosinophils # (Auto) 0.0, Basophils # (Auto) 0.0, Immature Granulocyte # (Auto) 0.0, Sodium Level 138, Potassium Level 3.9, Chloride Level 100, Carbon Dioxide Level 29, Anion Gap 9, Blood Urea Nitrogen 18, Creatinine 0.90, Estimat Glomerular Filtration Rate 60, BUN/Creatinine Ratio 20, Glucose Level 175H, Calcium Level 8.6 05/27/20 21:16: Glucometer 133H 05/28/20 05:55: Glucometer 144H Assessment/Plan Assessment/Plan Assessment and Plan AMS Hypoxia Abd pain CAD Afib Labs - CBC/electrolytes WNL CT head, abd, pelvis - no acute findings Continue O2, home meds Monitor VS/labs Probable dc to home or assisted living today BETSEY SUN MED STUDENT May 28, 2020 07:58
[2020-05-28 08:00] VITALS: BP 124/73
--- NOTE | 2020-05-28 09:07 | Short Stay Summary ---
History of Present Illness History of Present Illness Date of Admission May 27, 2020 at 15:28 Date of Discharge Attending Physician Deangelo Figueroa MD Admitting Physician Deangelo Figueroa MD Consult Allergies and Home Medications Allergies Coded Allergies: No Known Drug Allergies (Unverified , 11/16/19) Home Medications Albuterol Sulfate 18 Gm Hfa.aer.ad, 1-2 PUFF INH Q4H PRN for SHORTNESS OF BREATH, (Reported) Carvedilol 25 Mg Tablet, 25 MG PO BID, (Reported) Docusate Sodium 100 Mg Capsule, 100 MG PO BID, (Reported) Escitalopram Oxalate 20 Mg Tablet, 20 MG PO HS, (Reported) Fentanyl 1 Each Patch.td72, 25 MCG TD Q72H CALL DR OFFICE PRIOR TO PLACEMENT OF LAST PATCH FOR REFILLS Prescribed by: DEANGELO FIGUEROA on 05/07/20 0904 Furosemide 20 Mg Tablet, 40 MG PO 0800,1600, (Reported) TAKES 2 (20MG) TABS Gabapentin 100 Mg Capsule, 100 MG PO DAILY, (Reported) Gabapentin 100 Mg Capsule, 200 MG PO 1600, (Reported) TAKES 2 (100MG) CAPS Gabapentin 300 Mg Capsule, 300 MG PO HS, (Reported) Hydrocodone Bit/Acetaminophen 1 Ea Tab, 1 EA PO Q6HR PRN for PAIN-MODERATE (5-7) Prescribed by: DEANGELO FIGUEROA on 05/07/20 0904 Insulin Degludec 200 Unit/1 Ml Insuln.pen, 29 UNIT SQ HS, (Reported) Omeprazole 20 Mg Capsule.dr, 20 MG PO 1200, (Reported) Potassium Chloride 10 Meq Tablet.er, 10 MEQ PO 0800,1600, (Reported) Simvastatin 20 Mg Tablet, 20 MG PO HS, (Reported) Past Klmyzfy-Qbygzs-Wvhnca Hx Patient Social History Smoking Status: Former Smoker Former Smoker, Quit: Dec 27, 1995 2nd Hand Smoke Exposure: No Recent Hopitalizations: No Have you traveled recently?: No Alcohol Use?: No Pt feels they are or have been: No Immunizations Up To Date Tetanus Booster (TDap): Unknown Date of Pneumonia Vaccine: Aug 08, 2011 Date of Influenza Vaccine: Dec 08, 2019 Seasonal Allergies Seasonal Allergies: No Surgeries Yes (bilat hip replacement, wrist surgery, port/REMOVAL, brain aneurysm removed) Hysterectomy, Joint Replacement, Orthopedic Respiratory Yes (O2 2L NC AT NIGHT) Currently Using CPAP: No Currently Using BIPAP: No Cardiovascular Yes High Cholesterol, Hypertension Neurological Yes (brain anuerysm removed) 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 System Hx 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 Disorders: No Sexually Transmitted Disease: No HIV/AIDS: No Female 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 Disorders: Denies Genitourinary Yes (HX RENAL FAILURE) Renal Failure Gastrointestinal Yes Gastroesophageal Reflux, Chronic Constipation Musculoskeletal Yes Degenerate Disk Disease, Arthritis Endocrine History of Endocrine Disorders: Yes Endocrine Disorders: Diabetes, Non-Insulin dep HEENT History of HEENT Disorders: Yes (GLASSES, DENTURES) Loss of Vision: Denies Hearing Impairment: Denies Cancer No Psychosocial History of Psychiatric Problem: Yes Behavioral Health Disorders: Anxiety, Depression Integumentary History of Skin or Integumenta: No Blood Transfusions History of Blood Disorders: No Adverse Reaction to a Blood Tr: No (N/A) Family Medical History Significant Family History: Heart Disease, Hypertension Family Hx: Myocardial infarction 19 MOTHER Physical Exam Vital Signs Vital Signs - First Documented 05/27/20 13:31 Temp 36.9 Pulse 69 Resp 20 B/P (MAP) 115/64 (81) Pulse Ox 97 O2 Delivery Nasal Cannula O2 Flow Rate 2.00 Capillary Refill : Less Than 3 Seconds Height, Weight, BMI Height: 5'8.00" Weight: 212lbs. 7.0oz. 96.186743um; 39.10 BMI Method:Stated Short Stay Diagnosis Conclusion Labs Laboratory Tests 05/27/20 14:02: White Blood Count 7.9, Red Blood Count 3.93, Hemoglobin 11.7, Hematocrit 39, Mean Corpuscular Volume 98, Mean Corpuscular Hemoglobin 30, Mean Corpuscular Hemoglobin Concent 30L, Red Cell Distribution Width 12.5, Platelet Count 175, Mean Platelet Volume 11.2, Immature Granulocyte % (Auto) 0, Neutrophils (%) (Auto) 70, Lymphocytes (%) (Auto) 21, Monocytes (%) (Auto) 8, Eosinophils (%) (Auto) 0, Basophils (%) (Auto) 0, Neutrophils # (Auto) 5.5, Lymphocytes # (Auto) 1.7, Monocytes # (Auto) 0.6, Eosinophils # (Auto) 0.0, Basophils # (Auto) 0.0, Immature Granulocyte # (Auto) 0.0, Sodium Level 138, Potassium Level 3.9, Chloride Level 100, Carbon Dioxide Level 29, Anion Gap 9, Blood Urea Nitrogen 18, Creatinine 0.90, Estimat Glomerular Filtration Rate 60, BUN/Creatinine Ratio 20, Glucose Level 175H, Calcium Level 8.6 05/27/20 21:16: Glucometer 133H 05/28/20 05:55: Glucometer 144H DEANGELO FIGUEROA MD May 28, 2020 09:07
--- NOTE | 2020-05-28 09:12 | D/C HH Face to Face Order ---
D/C Face to Face Orders Reconcile Patient Problems Problems Reviewed?: Yes Instructions for Patient [facility] [employer], Patient Instructions/FollowUp: 1 wk follow up with stuart kumar (pt may already have an appt for this week - if so she is to keep that appt) Physician to follow Patient: stuart Discharge Diet for Home: ADA Diet Patient Problems: diabetes chronic pain weakness hypertension Patient Data-Allergies,Ht & Wt Patient Allergies: Coded Allergies: No Known Drug Allergies (Unverified , 11/16/19) Height (Feet): 5 Height (Inches): 8.00 Weight (Pounds): 212 Weight (Ounces): 7.0 Home Health Need/Face to Face Date of Face to Face: May 28, 2020 Clinical Findings: Instability, Muscle weakness, Shortness of breath I have seen Pt [id number]: Yes Discharged To: Home Diagnosis/Conditions: diabetes chronic pain weakness hypertension Patient is Homebound due to: CognItive deficits, Muscle weakness, Shortness of breath/distress Homebound Status Due to the above stated illness, injury or surgical procedure (medical condition or diagnosis) and associated clinical findings, the patient is homebound because of his/her inability to leave home except with aid of a supportive device and/or person AND leaving the home requires a considerable and taxing effort or is medically contraindicated. Pt req the following assistanc: [facility] Nursing Orders Home Health Services Order: Nursing Services, Rent And Housing Investigator-Evaluate & Treat, Physical Therapy-Evaluate & Treat cbc, cmp in 2 wks set up [facility] home safety eval by therapy staff Home Health Infusion Therapy Line Start Date: May 27, 2020 Therapy Orders Therapy Orders: Physical Therapy, PT to assess for OT Therapy Specific Orders: Teach strategies/cognitive deficits, Teach enviro modifications/safety, Increase strength/endurance Certify Stmt I certify that this patient is under my care and that I, a nurse practitioner or a physician; a assistant women's tennis coach working with me, had a face to face encounter that - meets the physician face to face encounter requirements with this patient as dated. DEANGELO FOSTER MD May 28, 2020 09:12
[2020-05-28] MEDS: CARVEDILOL 12.5 MG (COREG) TABLET PO SCH (11:11)
[2020-05-28 11:34] VITALS: BP 124/73
== END 2020-05-28 09:07 | disposition home or self-care (01) ==
LOC: EDUNIT# 13:04 → ER 13:05 → 4TH 15:28 → UNDOADMOB 15:28 → 4TH 18:05 → UNDODISOB 05-28 11:37
PROVIDERS: ADMIT Family Medicine; ATTEND Family Medicine
DX: R41.82 Altered mental status, unspecified (principal); R09.02 Hypoxemia; R10.84 Generalized abdominal pain; I25.10 Atherosclerotic heart disease of native coronary artery without angina pectoris; I48.91 Unspecified atrial fibrillation; E78.00 Pure hypercholesterolemia, unspecified; I10 Essential (primary) hypertension; K21.9 Gastro-esophageal reflux disease without esophagitis; K59.09 Other constipation; M19.90 Unspecified osteoarthritis, unspecified site; E11.9 Type 2 diabetes mellitus without complications; F32.9 Major depressive disorder, single episode, unspecified; F41.9 Anxiety disorder, unspecified; Z79.4 Long term (current) use of insulin; Z79.891 Long term (current) use of opiate analgesic; Z79.899 Other long term (current) drug therapy; Z87.891 Personal history of nicotine dependence; Z96.643 Presence of artificial hip joint, bilateral; Z90.710 Acquired absence of both cervix and uterus
CPT/HCPCS: 70450; 74176; 80048; 82962 ×2; 85025; 99284; G0378; 36415

== ENCOUNTER 2021-01-05 17:29 | Observation (INO) | payer MEDICARE, MEDICAID ==
[~2021-01-05] VITALS: Ht 172 cm; Wt 102.9 kg
[~2021-01-05 17:29] MED LIST changes: -LISI2.5T PO; +LISI2.5T13 PO
[2021-01-05 17:54] LABS: BASOPHILS % (AUTO) 0 % (0-10); EOSINOPHILS # (AUTO) 0.2 10^3/uL (0.0-0.3); EOSINOPHILS % (AUTO) 2 % (0-10); HEMATOCRIT 40 % (35-52); HEMOGLOBIN 12.6 g/dL (11.5-16.0); LYMPHOCYTES # (AUTO) 0.9 10^3/uL (1.0-4.0); LYMPHOCYTES % (AUTO) 7 % (12-44); MEAN CORPUSCULAR HEMOGLOBIN 30 pg (25-34); MEAN CORPUSCULAR HGB CONC 31 g/dL (32-36); MEAN CORPUSCULAR VOLUME 95 fL (80-99); MEAN PLATELET VOLUME 11.2 fL (9.0-12.2); MONOCYTES % (AUTO) 7 % (0-12); NEUTROPHILS # (AUTO) 11.1 10^3/uL (1.8-7.8); NEUTROPHILS % (AUTO) 84 % (42-75); PLATELET COUNT 173 10^3/uL (130-400); WHITE BLOOD COUNT 13.2 10^3/uL (4.3-11.0)
[2021-01-05 17:58] LABS: ALBUMIN 3.9 GM/DL (3.2-4.5)
[2021-01-05 17:59] LABS: CHLORIDE 100 MMOL/L (98-107); SODIUM 136 MMOL/L (135-145)
[2021-01-05 18:00] LABS: CALCIUM 9.2 MG/DL (8.5-10.1)
[2021-01-05 18:01] LABS: GLUCOSE 225 MG/DL (70-105); TOTAL PROTEIN 7.4 GM/DL (6.4-8.2)
[2021-01-05 18:02] LABS: CARBON DIOXIDE 21 MMOL/L (21-32)
[2021-01-05 18:03] LABS: BILIRUBIN,TOTAL 0.4 MG/DL (0.1-1.0)
[2021-01-05 18:04] LABS: ALKALINE PHOSPHATASE 142 U/L (40-136); FIBRIN DEGRADATION PRODUCTS 2.57 UG/ML (0.00-0.49); INR 1.1 (0.8-1.4); PROTHROMBIN TIME PATIENT 14.1 SEC (12.2-14.7)
[2021-01-05 18:05] LABS: CREATININE SERUM 1.59 MG/DL (0.60-1.30); GFR ESTIMATED 31
[2021-01-05 18:06] LABS: BUN/CREATININE RATIO 26
--- NOTE | 2021-01-05 18:06 | ED General ---
General Chief Complaint: General Problems/Pain Stated Complaint: LETHARGIC Nursing Triage Note: PT ARRIVES TO ER BY [facility] FROM HOME WITH C/O LETHARGY AND BLOOD IN STOOL YESTERDAY. FAMILY STATES SHE HAD A UTI 3 WEEKS AGO AND FINISHED RX THIS WEEK, ALSO HAS HEMHROIDS Source of Information: EMS, Family Exam Limitations: No Limitations History of Present Illness Date Seen by Provider: Jan 05, 2021 Time Seen by Provider: 17:47 Initial Comments This is an 85-year-old female who presented to the ER via [facility] from home for concerns of altered mental status. Family reports that she had bright red blood in her stool yesterday and was recently treated for UTI 3 weeks ago. States that she has just finished her course of antibiotics. Daughter also notes that she does have history of hemorrhoids. States that AMS has happened in the past and it was due to significant urinary tract infection. Denies any recent falls or injuries. Patient is unable to answer questions at this time. Allergies and Home Medications Allergies Coded Allergies: No Known Drug Allergies (Unverified , 11/16/19) Patient Home Medication List Home Medication List Reviewed: Yes Carvedilol (Carvedilol) 25 Mg Tablet, 25 MG PO BID, (Reported) Entered as Reported by: EDWIN ANGELA on 09/11/162022 Last Action: Reviewed Docusate Sodium (Colace) 100 Mg Capsule, 100 MG PO BID, (Reported) Entered as Reported by: EDWIN ANGELA on 09/11/162022 Last Action: Reviewed Escitalopram Oxalate (Escitalopram Oxalate) 20 Mg Tablet, 20 MG PO HS, (R eported) Entered as Reported by: SULEIMAN SANCHEZ on 12/11/17 1311 Last Action: Reviewed Furosemide (Furosemide) 20 Mg Tablet, 40 MG PO 0800,1600, (Reported) Entered as Reported by: ANDRIA ROMERO on 07/06/18 1148 Last Action: Reviewed Gabapentin (Gabapentin) 100 Mg Capsule, 100 MG PO DAILY, (Reported) Entered as Reported by: EDWIN ANGELA on 09/11/162022 Last Action: Reviewed Gabapentin (Gabapentin) 100 Mg Capsule, 200 MG PO 1600, (Reported) Entered as Reported by: REGIS SORIA on 12/29/18 1543 Last Action: Reviewed Gabapentin (Neurontin) 300 Mg Capsule, 300 MG PO HS, (Reported) Entered as Reported by: SOFIA FRANCISCO on 05/03/20934 Last Action: Reviewed Hydrocodone Bit/Acetaminophen (HYDROcodone/APAP 10/325 TABLET) 1 Ea Tab, 1 EA PO Q6HR PRN for PAIN-MODERATE (5-7) Prescribed by: DEANGELO FIGUEROA on 05/07/20 0904 Last Action: Reviewed Insulin Degludec (Tresiba Flextouch U-200) 200 Unit/1 Ml Insuln.pen, 40 UNIT SQ HS, (Reported) Entered as Reported by: REGIS SORIA on 12/29/18 1543 Last Action: Reviewed Omeprazole (Omeprazole) 20 Mg Capsule.dr, 20 MG PO 1200, (Reported) Entered as Reported by: SULEIMAN SANCHEZ on 12/11/17 1311 Last Action: Reviewed Potassium Chloride (K-Tab ER) 10 Meq Tablet.er, 10 MEQ PO 0800,1600, (Reported) Entered as Reported by: SOFIA FRANCISCO on 05/03/20934 Last Action: Reviewed Simvastatin (Simvastatin) 20 Mg Tablet, 20 MG PO HS, (Reported) Entered as Reported by: EDWIN ANGELA on 09/11/162022 Last Action: Reviewed Review of Systems Review of Systems Constitutional: see HPI Gastrointestinal: see HPI Genitourinary: see HPI Past Ondwwpy-Aqftgq-Wkfigy Hx Patient Social History Tobacco Use?: No Substance use?: No Alcohol Use?: No Immunizations Up To Date Tetanus Booster (TDap): Unknown Influenza Vaccine Up-to-Date: No; Not Current First/Initial COVID19 Vaccinat: AUGUST 2020 Second COVID19 Vaccination Sacha: SEPTEMBER 2020 COVID19 Vaccine Double Needle Operator Lockstitch: MODERNA Seasonal Allergies Seasonal Allergies: No Past Medical History Surgeries: Yes (bilat hip replacement, wrist surgery, port/REMOVAL, brain aneurysm removed) Hysterectomy, Joint Replacement, Orthopedic Respiratory: Yes (O2 2L NC AT NIGHT) Currently Using CPAP: No Currently Using BIPAP: No Cardiac: Yes Coronary Artery Disease, High Cholesterol, Hypertension Neurological: Yes (brain anuerysm removed) 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 Disorders: No Female 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 Disorders: Denies FAMILY PRACTICE PHYSICIAN History: Menopausal Sexually Transmitted Disease: No HIV/AIDS: No Genitourinary: Yes (HX RENAL FAILURE) Renal Failure Gastrointestinal: Yes Gastroesophageal Reflux, Chronic Constipation Musculoskeletal: Yes Degenerate Disk Disease, Arthritis Endocrine: Yes Diabetes, Non-Insulin dep HEENT: Yes (GLASSES, DENTURES) Loss of Vision: Denies Hearing Impairment: Denies Cancer: No Psychosocial: Yes Anxiety, Depression Integumentary: No Blood Disorders: No Adverse Reaction/Blood Tranf: No (N/A) Family Medical History Myocardial infarction 19 MOTHER Heart Disease, Hypertension Physical Exam Vital Signs Capillary Refill : Less Than 3 Seconds Height, Weight, BMI Height: 5'8.00" Weight: 212lbs. 7.0oz. 96.331437ax; 33.00 BMI Method:Stated General Appearance: WD/WN, Obese Eyes: Bilateral Eye Normal Inspection, Bilateral Eye PERRL HEENT: PERRL/EOMI, Normal ENT Inspection, Pharynx Normal Neck: Normal Inspection, Non Tender Respiratory: Lungs Clear, Normal Breath Sounds, No Accessory Muscle Use Cardiovascular: Regular Rate, Rhythm, Normal Peripheral Pulses Gastrointestinal: Normal Bowel Sounds, No Organomegaly, Non Tender, Soft Back: Normal Inspection Extremity: Normal Capillary Refill Neurologic/Psychiatric: No Alert, No Oriented x3, No Facial Droop Skin: Normal Color, Warm/Dry Focused Exam Lactate Level 01/05/21 17:34: Lactic Acid Level 1.35 Lactic Acid Level Laboratory Tests Test 01/05/21 17:34 Lactic Acid Level 1.35 MMOL/L (0.50-2.00) Progress/Results/Core Measures Suspected Sepsis SIRS Temperature: Pulse: 87 Respiratory Rate: 16 Laboratory Tests 01/05/21 17:34: White Blood Count 13.2H Blood Pressure 115 /73 Mean: 87 01/05/21 17:34: Lactic Acid Level 1.35 Laboratory Tests 01/05/21 17:34: Creatinine 1.59H, INR Comment 1.1, Platelet Count 173, Total Bilirubin 0.4 Results/Orders Lab Results Laboratory Tests Test 01/05/21 17:34 01/05/21 18:55 01/05/21 20:39 Range/Units White Blood Count 13.2 H 4.3-11.0 10^3/uL Red Blood Count 4.25 3.80-5.11 10^6/uL Hemoglobin 12.6 11.5-16.0 g/dL Hematocrit 40 35-52 % Mean Corpuscular Volume 95 80-99 fL Mean Corpuscular Hemoglobin 30 25-34 pg Mean Corpuscular Hemoglobin Concent 31 L 32-36 g/dL Red Cell Distribution Width 13.2 10.0-14.5 % Platelet Count 173 130-400 10^3/uL Mean Platelet Volume 11.2 9.0-12.2 fL Immature Granulocyte % (Auto) 0 % Neutrophils (%) (Auto) 84 H 42-75 % Lymphocytes (%) (Auto) 7 L 12-44 % Monocytes (%) (Auto) 7 0-12 % Eosinophils (%) (Auto) 2 0-10 % Basophils (%) (Auto) 0 0-10 % Neutrophils # (Auto) 11.1 H 1.8-7.8 10^3/uL Lymphocytes # (Auto) 0.9 L 1.0-4.0 10^3/uL Monocytes # (Auto) 1.0 0.0-1.0 10^3/uL Eosinophils # (Auto) 0.2 0.0-0.3 10^3/uL Basophils # (Auto) 0.0 0.0-0.1 10^3/uL Immature Granulocyte # (Auto) 0.1 0.0-0.1 10^3/uL Neutrophils % (Manual) 86 % Lymphocytes % (Manual) 3 % Monocytes % (Manual) 10 % Eosinophils % (Manual) 1 % Anisocytosis SLIGHT Elliptocytes SLIGHT Blood Morphology Comment NA Prothrombin Time 14.1 12.2-14.7 SEC INR Comment 1.1 0.8-1.4 Activated Partial Thromboplast Time 39 H 24-35 SEC D-Dimer 2.57 H 0.00-0.49 UG/ML Sodium Level 136 135-145 MMOL/L Potassium Level 4.0 3.6-5.0 MMOL/L Chloride Level 100 98-107 MMOL/L Carbon Dioxide Level 21 21-32 MMOL/L Anion Gap 15 H 5-14 MMOL/L Blood Urea Nitrogen 41 H 7-18 MG/DL Creatinine 1.59 H 0.60-1.30 MG/DL Estimat Glomerular Filtration Rate 31 BUN/Creatinine Ratio 26 Glucose Level 225 H 70-105 MG/DL Lactic Acid Level 1.35 0.50-2.00 MMOL/L Calcium Level 9.2 8.5-10.1 MG/DL Corrected Calcium 9.3 8.5-10.1 MG/DL Total Bilirubin 0.4 0.1-1.0 MG/DL Aspartate Amino Transf (AST/SGOT) 19 5-34 U/L Alanine Aminotransferase (ALT/SGPT) 12 0-55 U/L Alkaline Phosphatase 142 H 40-136 U/L Troponin I < 0.028 <0.028 NG/ML Total Protein 7.4 6.4-8.2 GM/DL Albumin 3.9 3.2-4.5 GM/DL Urine Color YELLOW Urine Clarity SL CLOUDY Urine pH 5.5 5-9 Urine Specific [place] 1.020 1.016-1.022 Urine Protein NEGATIVE NEGATIVE Urine Glucose (UA) NEGATIVE NEGATIVE Urine Ketones NEGATIVE NEGATIVE Urine Nitrite NEGATIVE NEGATIVE Urine Bilirubin NEGATIVE NEGATIVE Urine Urobilinogen 0.2 < = 1.0 MG/DL Urine Leukocyte Esterase NEGATIVE NEGATIVE Urine RBC (Auto) NEGATIVE NEGATIVE Urine RBC 2-5 H /HPF Urine WBC 5-10 H /HPF Urine Squamous Epithelial Cells 0-2 /HPF Urine Renal Epithelial Cells 0-2 /HPF Urine Crystals NONE /LPF Urine Bacteria FEW H /HPF Urine Casts PRESENT /LPF Urine Hyaline Casts 2-5 H /LPF Urine Mucus NEGATIVE /LPF Urine Culture Indicated CULTURE PENDING Lab Scanned Report Referred Lab Report [id number] Micro Results Microbiology 01/05/21 Urine Culture - Final, Complete NO GROWTH 01/05/21 Blood Culture - Final, Complete No growth 01/05/21 Blood Culture - Final, Complete No growth My Orders Orders - KYLIE LOYA APRN Cbc With Automated Diff (01/05/21 17:43) Protime With Inr (01/05/21 17:43) Partial Thromboplastin Time (01/05/21 17:43) Comprehensive Metabolic Panel (01/05/21 17:43) Fibrin Degradation Products (01/05/21 17:43) Troponin I (01/05/21 17:43) Ua Culture If Indicated (01/05/21 17:43) Chest 1 View, Ap/Pa Only (01/05/21 17:43) Ekg Tracing (01/05/21 17:43) Nothing By Mouth (01/05/21 Dinner) Accucheck Stat ONCE (01/05/21 17:43) Ed Iv/Invasive Line Start (01/05/21 17:43) Vital Signs Stroke Patient Q15M (01/05/21 17:43) Ct Head Wo-R/O Stroke (01/05/21 17:43) O2 (01/05/21 17:43) Intake & Output 06,14,22 (01/05/21 17:43) Monitor-Rhythm Ecg Trace Only (01/05/21 17:43) Dysphagia Screening Tool (01/05/21 17:43) Blood Culture (01/05/21 17:43) Urine Culture (01/05/21 17:43) Lactic Acid Analyzer (01/05/21 17:43) Manual Differential (01/05/21 17:34) Ct Abdomen/Pelvis Wo (01/05/21 18:32) Naloxone Injection (Narcan Injection) (01/05/21 19:00) Ns Iv 500 Ml (Sodium Chloride 0.9%) (01/05/21 19:00) Naloxone Injection (Narcan Injection) (01/05/21 19:23) Ns Iv 500 Ml (Sodium Chloride 0.9%) (01/05/21 19:23) Ceftriaxone (Rocephin) (01/05/21 20:30) Medications Given in ED Vital Signs/I&O Capillary Refill : Less Than 3 Seconds Blood Pressure Mean: 87 Progress Note : Progress Note Upon arrival patient unable to answer questions. Daughter states she has history of AMS and is usually due to UTI. Current etiology of AMS unknown. Will initiate Sepsis and stroke work up as she has history of recent UTI and history of chronic A-fib w/o coagulation, per family. Labs reviewed. Discussed findings with Dr. Figueroa. Patient has history of opiate dependency and abuse and has accidentally taken too much pain medication before. Would like patient to have a small dose of Narcan to see if her symptoms improve. Given Narcan 0.2mg which did rouse patient to where she was more alert and able to answer questions. Discussed possible admission vs home with close follow up with daughter. Would like patient admitted due to her intermittent "hallucinations". Discussed with daughter that patient has elevated Ddimer and this could indicate clot formation, reviewed risk/benefits of receiving CT chest angio. Daughter would like to hold off on CT chest angio d/t renal disease. Patient given NS 500ml slow bolus in ED. Given Rocephin 1gm IV for UTI. Will admit observation for accidental ingestion of too much opiate medication, UTI, and AMS. Will add Lovenox 40mg subcut d/t elevation in Ddimer. Plan of care reviewed with daughter and she is agreeable with plan. ECG Initial ECG Impression Date: Jan 05, 2021 Initial ECG Impression: Atrial Fibrillation Initial ECG Comparisson: Unchanged Diagnostic Imaging Diagonstic Imaging: Xray Plain Films/CT/US/NM/MRI: chest Comments [facility] [place] NAME: AMANDA PISANO [facility] REC#: [id number] PT STATUS: REG ER : 1935 PHYSICIAN: KYLIE LOYA APRN ADMIT DATE: 01/05/21/ER Signed Date of Exam:01/05/21 CHEST 1 VIEW, AP/PA ONLY EXAMINATION: Chest 1 view. HISTORY: Altered mental status. COMPARISON: 12/16/2017. FINDINGS: Heart is mildly enlarged. No pleural effusion or pneumothorax. No edema or pneumonia. IMPRESSION: Mildly enlarged heart, clear lungs. Dictated by: Dictated on workstation # [id number] Dict: 01/05/21 184 Trans: 01/05/212102 [facility] [id number] Interpreted by: ELIJAH RIVERA MD Electronically signed by: ELIJAH RIVERA MD 01/05/212102 Reviewed: Reviewed by Or Diagonstic Imaging: CT Plain Films/CT/US/NM/MRI: head Comments [facility] [place] NAME: AMANDA PISANO [facility] REC#: [id number] PT STATUS: REG ER : 1935 PHYSICIAN: KYLIE LOYA APRN ADMIT DATE: 01/05/21/ER Signed Date of Exam:01/05/21 CT HEAD WO-R/O STROKE EXAMINATION: CT head without contrast. TECHNIQUE: Multiple contiguous axial images were obtained through the brain without the use of intravenous contrast. All CT scans use one or more of the following dose optimizing techniques: automated exposure control, MA and/or KvP adjustment based on patient size and exam type or iterative reconstruction. HISTORY: Neurologic deficit. COMPARISON: 06/06/2020. FINDINGS: There is stable encephalomalacia in the right frontal lobe. There is a minimal right-sided craniotomy and a surgical clip placed near the cra[place] of [place]. No mass effect or midline shift. The ventricles are normal in size and configuration. Basilar cisterns are patent. There are no intra-axial or extra-axial fluid collections. There is no intracranial hemorrhage. The orbits are normal. There is right maxillary sinus mucosal disease. Mastoid air cells are clear. No soft tissue abnormality is seen. No osseus lesions or fractures are seen. IMPRESSION: Stable right frontal encephalomalacia. No acute abnormality. Dictated by: Dictated on workstation # [id number] Dict: 01/05/21 1829 Trans: 01/05/212103 [facility] [id number] Interpreted by: ELIJAH RIVERA MD Electronically signed by: ELIJAH RIVERA MD 01/05/212103 Reviewed: Reviewed by Me Diagonstic Imaging: CT Comments [facility] [place] NAME: AMANDA PISANO [facility] REC#: [id number] PT STATUS: REG ER : 1935 PHYSICIAN: KYLIE LOYA STEAM AND POWER SUPERVISOR ADMIT DATE: 01/05/21/ER Signed Date of Exam:01/05/21 CT ABDOMEN/PELVIS WO EXAMINATION: CT abdomen and pelvis without contrast. TECHNIQUE: Multiple contiguous axial images were obtained through the abdomen and pelvis without the use of intravenous contrast. All CT scans use one or more of the following dose optimizing techniques: automated exposure control, MA and/or KvP adjustment based on patient size and exam type or iterative reconstruction. HISTORY: Bloody stools. COMPARISON: 05/27/2020. FINDINGS: Limited views of the lower thorax show small hiatal hernia. The liver is normal without focal lesion. There is no biliary ductal dilation. Gallbladder is normal. Pancreas is normal. Spleen is normal. Adrenal glands are normal. There are simple cysts in the left kidney. No suspicious renal lesions. There is no hydronephrosis. Urinary bladder is normal. Visualized bowel is normal in caliber without obstruction or inflammation. There is diverticulosis without diverticulitis. No free fluid or air. No abdominal or pelvic lymphadenopathy. Aorta is normal in caliber without aneurysm. There are no suspicious osseus lesions. IMPRESSION: No acute abnormality in the abdomen or pelvis. Dictated by: Dictated on workstation # [id number] Dict: 01/05/211848 Trans: 01/05/212102 [facility] [id number] Interpreted by: ELIJAH RIVERA MD Electronically signed by: ELIJAH RIVERA MD 01/05/212102 Reviewed: Reviewed by Me Departure Communication (Admissions) Time/Spoke to Admitting Phy: 21:00 Dr. Figueroa Impression Primary Impression: Altered mental status Disposition: ADMITTED INPATIENT Condition: Stable Admissions Decision to Admit Reason: Admit from ER (General) Decision to Admit/Date: Jan 05, 2021 Time/Decision to Admit Time: 20:30 Departure-Patient Inst. Referrals: DEANGELO FIGUEROA MD (PCP/Family) Primary Care Physician KYLIE LOYA STEAM AND POWER SUPERVISOR Jan 05, 2021 18:06
[2021-01-05 18:08] LABS: ALANINE AMINOTRANSFERASE 12 U/L (0-55)
[2021-01-05 18:17] LABS: ANISOCYTOSIS SLIGHT; ELLIPT/OVALOCYTES SLIGHT; EOSINOPHILS % (MANUAL) 1 %; LYMPHOCYTES % (MANUAL) 3 %; MONOCYTES % (MANUAL) 10 %; NEUTROPHILS % (MANUAL) 86 %
--- NOTE | 2021-01-05 18:33 | Diagnostic Imaging Report ---
EXAMINATION: CT head without contrast. TECHNIQUE: Multiple contiguous axial images were obtained through the brain without the use of intravenous contrast. All CT scans use one or more of the following dose optimizing techniques: automated exposure control, MA and/or KvP adjustment based on patient size and exam type or iterative reconstruction. HISTORY: Neurologic deficit. COMPARISON: 06/06/2020. FINDINGS: There is stable encephalomalacia in the right frontal lobe. There is a minimal right-sided craniotomy and a surgical clip placed near the [place] of [place]. No mass effect or midline shift. The ventricles are normal in size and configuration. Basilar cisterns are patent. There are no intra-axial or extra-axial fluid collections. There is no intracranial hemorrhage. The orbits are normal. There is right maxillary sinus mucosal disease. Mastoid air cells are clear. No soft tissue abnormality is seen. No osseus lesions or fractures are seen. IMPRESSION: Stable right frontal encephalomalacia. No acute abnormality. Dictated by: Dictated on workstation # [id number]
--- NOTE | 2021-01-05 18:49 | Diagnostic Imaging Report ---
EXAMINATION: Chest 1 view. HISTORY: Altered mental status. COMPARISON: 12/16/2017. FINDINGS: Heart is mildly enlarged. No pleural effusion or pneumothorax. No edema or pneumonia. IMPRESSION: Mildly enlarged heart, clear lungs. Dictated by: Dictated on workstation # [id number]
--- NOTE | 2021-01-05 18:54 | Diagnostic Imaging Report ---
EXAMINATION: CT abdomen and pelvis without contrast. TECHNIQUE: Multiple contiguous axial images were obtained through the abdomen and pelvis without the use of intravenous contrast. All CT scans use one or more of the following dose optimizing techniques: automated exposure control, MA and/or KvP adjustment based on patient size and exam type or iterative reconstruction. HISTORY: Bloody stools. COMPARISON: 05/27/2020. FINDINGS: Limited views of the lower thorax show small hiatal hernia. The liver is normal without focal lesion. There is no biliary ductal dilation. Gallbladder is normal. Pancreas is normal. Spleen is normal. Adrenal glands are normal. There are simple cysts in the left kidney. No suspicious renal lesions. There is no hydronephrosis. Urinary bladder is normal. Visualized bowel is normal in caliber without obstruction or inflammation. There is diverticulosis without diverticulitis. No free fluid or air. No abdominal or pelvic lymphadenopathy. Aorta is normal in caliber without aneurysm. There are no suspicious osseus lesions. IMPRESSION: No acute abnormality in the abdomen or pelvis. Dictated by: Dictated on workstation # [id number]
[2021-01-05] MEDS ORDERED: NS IV 500 ML 500 ML IV ONE (19:00)
[2021-01-05] MEDS ORDERED: NALOXONE 0.4 MG/ML 1 ML (NARCAN) VIAL IV ONE (19:00)
[2021-01-05 19:04] LABS: BILIRUBIN,URINE NEGATIVE (NEGATIVE); CLARITY,URINE SL CLOUDY; COLOR,URINE YELLOW; GLUCOSE, URINE (UA) NEGATIVE (NEGATIVE); KETONES,URINE NEGATIVE (NEGATIVE); LEUKOCYTE ESTERASE ,URINE NEGATIVE (NEGATIVE); NITRITE,URINE NEGATIVE (NEGATIVE); PH,URINE 5.5 (5-9); PROTEIN,URINE NEGATIVE (NEGATIVE)
[2021-01-05 19:12] LABS: BACTERIA,URINE FEW /HPF; RENAL EPITHELIAL CELLS,URINE 0-2 /HPF; SQUAMOUS EPITHELIAL CELL,UR 0-2 /HPF
[2021-01-05] MEDS ORDERED: NALOXONE 0.4 MG/ML 1 ML (NARCAN) VIAL ONE (19:23)
[2021-01-05] MEDS ORDERED: NS IV 500 ML 500 ML ONE (19:23)
[2021-01-05] MEDS ORDERED: cefTRIAXone 1,000 MG in WATER (STERILE) FOR INJECTION 10 ML IV ONE (20:30)
[2021-01-05 22:09] VITALS: BP 133/75
[2021-01-05] MEDS ORDERED: ONDANSETRON 4 MG/2 ML (SDV) Z0FRAN IV PRN (22:15)
[2021-01-05] MEDS ORDERED: ACETAMINOPHEN 325 MG TABLET PO PRN (22:15)
[2021-01-05 22:19] VITALS: BP 115/73
[2021-01-05] MEDS ORDERED: RT-ALBUTEROL SULF 2.5 MG/3 ML PRE-MIX VIAL INH PRN (22:30)
[2021-01-05] MEDS ORDERED: NS IV 1000 ML 1,000 ML IV SCH (23:30)
[2021-01-05 23:46] VITALS: BP 127/86
[2021-01-06 04:06] VITALS: BP 151/67
[2021-01-06 05:34] LABS: BASOPHILS % (AUTO) 0 % (0-10); EOSINOPHILS # (AUTO) 0.1 10^3/uL (0.0-0.3); EOSINOPHILS % (AUTO) 1 % (0-10); HEMATOCRIT 35 % (35-52); HEMOGLOBIN 11.4 g/dL (11.5-16.0); LYMPHOCYTES % (AUTO) 10 % (12-44); MEAN CORPUSCULAR HEMOGLOBIN 30 pg (25-34); MEAN CORPUSCULAR HGB CONC 33 g/dL (32-36); MEAN CORPUSCULAR VOLUME 92 fL (80-99); MEAN PLATELET VOLUME 11.3 fL (9.0-12.2); MONOCYTES # (AUTO) 0.8 10^3/uL (0.0-1.0); MONOCYTES % (AUTO) 7 % (0-12); NEUTROPHILS # (AUTO) 8.9 10^3/uL (1.8-7.8); NEUTROPHILS % (AUTO) 82 % (42-75); PLATELET COUNT 154 10^3/uL (130-400); WHITE BLOOD COUNT 10.9 10^3/uL (4.3-11.0)
[2021-01-06 05:43] LABS: POTASSIUM 3.6 MMOL/L (3.6-5.0)
[2021-01-06 05:45] LABS: CALCIUM 8.6 MG/DL (8.5-10.1)
[2021-01-06 05:49] LABS: CREATININE SERUM 0.96 MG/DL (0.60-1.30)
[2021-01-06 08:00] VITALS: BP 128/66
[2021-01-06] MEDS ORDERED: ENOXAPARIN 40 MG/0.4 ML (LOVENOX) SYR SC SCH (09:00)
[2021-01-06 12:04] VITALS: BP 150/83
--- NOTE | 2021-01-06 12:09 | Short Stay Summary ---
History of Present Illness History of Present Illness Reason for visit/HPI PT IS AN 85 Y/O FEMALE WHO IS WELL KNOWN TO ME FROM CLINIC. SHE PRESENTED TO THE ER AFTER HER FAMILY FOUND HER AT HOME GROGGY, MINIMALLY RESPONSIVE. SHE WAS EVALUATED IN THE ER - FOUND TO BE SLIGHTLY DEHYDRATED AND PERSISTENTLY GROGGY - PT WAS GIVEN NARCAN AFTER MY SUGGESTION TO ER PROVIDER, AND SHE IMMEDIATELY IMPROVED COGNITIVELY. DISCUSSION WITH PT - "I DID NOT TAKE MUCH YESTERDAY" - HER DTR REPORTS THAT SHE PUT OUT 6 HYDROCODONE FOR HER TO TAKE OVER THE DAY YESTERDAY IF NEEDED SINCE HER DTR WAS NOT AT HOME YESTERDAY. THE PT'S DTR REPORTS THAT HER MOM HAD 4 PILLS LEFT YESTERDAY EVENING, BUT SHE IS NOT SURE IF HER MOM TOOK TWO AT THE SAME TIME OR HOW SHE TOOK HER MEDICATIONS YESTERDAY. THE PT REPORTS THAT SHE FEELS FINE TODAY , BACK TO HER USUAL LEVEL OF HEALTH. Date of Admission Jan 05, 2021 at 20:39 Date of Discharge 01/06/2021 Time Seen by Provider: 12:00 Attending Physician Deangelo Figueroa MD Admitting Physician Deangelo Figueroa MD Consult Allergies and Home Medications Allergies Coded Allergies: No Known Drug Allergies (Unverified , 11/16/19) Patient Home Medication List Home Medication List Reviewed: Yes Carvedilol (Carvedilol) 25 Mg Tablet, 25 MG PO BID, (Reported) Entered as Reported by: EDWIN ANGELA on 09/11/162022 Last Action: Reviewed Docusate Sodium (Colace) 100 Mg Capsule, 100 MG PO BID, (Reported) Entered as Reported by: EDWIN ANGELA on 09/11/162022 Last Action: Reviewed Escitalopram Oxalate (Escitalopram Oxalate) 20 Mg Tablet, 20 MG PO HS, (Reported) Entered as Reported by: SULEIMAN SANCHEZ on 12/11/17 1311 Last Action: Reviewed Furosemide (Furosemide) 20 Mg Tablet, 40 MG PO 0800,1600, (Reported) Entered as Reported by: ANDRIA ROMERO on 07/06/18 1148 Last Action: Reviewed Gabapentin (Gabapentin) 100 Mg Capsule, 100 MG PO DAILY, (Reported) Entered as Reported by: EDWIN ANGELA on 09/11/162022 Last Action: Reviewed Gabapentin (Gabapentin) 100 Mg Capsule, 200 MG PO 1600, (Reported) Entered as Reported by: REGIS SORIA on 12/29/181542 Last Action: Reviewed Gabapentin (Neurontin) 300 Mg Capsule, 300 MG PO HS, (Reported) Entered as Reported by: SOFIA FRANCISCO on 05/03/20934 Last Action: Reviewed Hydrocodone Bit/Acetaminophen (HYDROcodone/APAP 10/325 TABLET) 1 Ea Tab, 1 EA PO Q6HR PRN for PAIN-MODERATE (5-7) Prescribed by: DEANGELO FIGUEROA on 05/07/20903 Last Action: Reviewed Insulin Degludec (Tresiba Flextouch U-200) 200 Unit/1 Ml Insuln.pen, 40 UNIT SQ HS, (Reported) Entered as Reported by: REGIS SORIA on 12/29/181542 Last Action: Reviewed Omeprazole (Omeprazole) 20 Mg Capsule.dr, 20 MG PO 1200, (Reported) Entered as Reported by: SULEIMAN SANCHEZ on 12/11/17 1311 Last Action: Reviewed Potassium Chloride (K-Tab ER) 10 Meq Tablet.er, 10 MEQ PO 0800,1600, (Reported) Entered as Reported by: SOFIA FRANCISCO on 05/03/20934 Last Action: Reviewed Simvastatin (Simvastatin) 20 Mg Tablet, 20 MG PO HS, (Reported) Entered as Reported by: EDWIN ANGELA on 09/11/162022 Last Action: Reviewed Discontinued Medications Albuterol Sulfate (Ventolin Hfa) 18 Gm Hfa.aer.ad, 1-2 PUFF INH Q4H PRN for SHORTNESS OF BREATH, (Reported) Discontinued Reason: No Longer Taking Entered as Reported by: SOFIA FRANCISCO on 05/03/20934 Last Action: Discontinued Fentanyl (Fentanyl Patch 25 MCG) 1 Each Patch.td72, 25 MCG TD Q72H Discontinued Reason: No Longer Taking Prescribed by: DEANGELO FIGUEROA on 05/07/20903 Last Action: Discontinued Past Kkmtfrg-[id number]-Bkweih Hx Patient Social History Marrital Status: Number of Children: 4 Number of living children: 4 Living Status: LIVES AT HOME WITH HER DTR [place] Employed/Student: retired Smoking Status: Former Smoker Former Smoker, Quit: Dec 27, 1995 2nd Hand Smoke Exposure: No Recent Hopitalizations: No Have you traveled recently?: No Alcohol Use?: No Pt feels they are or have been: No Immunizations Up To Date Tetanus Booster (TDap): Unknown Date of Pneumonia Vaccine: Aug 08, 2011 Date of Influenza Vaccine: Dec 08, 2019 Seasonal Allergies Seasonal Allergies: No Surgeries Yes (bilat hip replacement, wrist surgery, port/REMOVAL, brain aneurysm removed) Hysterectomy, Joint Replacement, Orthopedic Respiratory Yes (O2 2L NC AT NIGHT) Currently Using CPAP: No Currently Using BIPAP: No Cardiovascular Yes Coronary Artery Disease, High Cholesterol, Hypertension Neurological Yes (brain anuerysm removed) 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 System : No Hx 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 Disorders: No Sexually Transmitted Disease: No HIV/AIDS: No 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 Genitourinary Yes (HX RENAL FAILURE) Renal Failure Gastrointestinal Yes Gastroesophageal Reflux, Chronic Constipation Musculoskeletal Yes Degenerate Disk Disease, Arthritis Endocrine History of Endocrine Disorders: Yes Endocrine Disorders: Diabetes, Non-Insulin dep HEENT History of HEENT Disorders: Yes (GLASSES, DENTURES) Loss of Vision: Denies Hearing Impairment: Denies Cancer No Psychosocial History of Psychiatric Problem: Yes Behavioral Health Disorders: Anxiety, Depression Integumentary History of Skin or Integumenta: No Blood Transfusions History of Blood Disorders: No Adverse Reaction to a Blood Tr: No (N/A) Reviewed Nursing Assessment Reviewed/Agree w Nursing PMH: Yes Family Medical History Significant Family History: Heart Disease, Hypertension Family Hx: Myocardial infarction 19 MOTHER Review of Systems Constitutional: No chills, No diaphoresis, No fever; malaise, weakness EENTM: hearing loss (CHRONIC); No hoarseness, No throat pain Respiratory: No cough, No dyspnea on exertion, No short of breath Cardiovascular: No edema, No palpitations Gastrointestinal: No abdominal pain, No constipation, No diarrhea, No nausea, No vomiting Genitourinary: frequency, incontinence Musculoskeletal: muscle weakness Skin: No dryness, No rash Psychiatric/Neurological: Denies Anxiety, Denies Depressed; Weakness All Other Systems Reviewed Negative Unless Noted: Yes Physical Exam Vital Signs Vital Signs - First Documented Capillary Refill : Less Than 3 Seconds Height, Weight, BMI Height: 5'8.00" Weight: 212lbs. 7.0oz. 96.987067yw; 34.78 BMI Method:Stated General Appearance: No Apparent Distress, WD/WN HEENT: PERRL/EOMI, Pharynx Normal Neck: Full Range of Motion, Non Tender, Supple Respiratory: Chest Non Tender, Lungs Clear, Normal Breath Sounds, No Accessory Muscle Use, No Respiratory Distress Cardiovascular: Regular Rate, Rhythm, Normal Peripheral Pulses Gastrointestinal: Normal Bowel Sounds, No Organomegaly, No Pulsatile Mass, Non Tender, Soft Rectal: Deferred Back: Normal Inspection Extremity: Normal Capillary Refill, Non Tender, No Calf Tenderness, No Pedal Edema Neurologic/Psychiatric: Alert, Oriented x3, No Motor/Sensory Deficits, Normal Mood/Affect, surgical aide II-XII Norm as Tested Skin: Normal Color, Warm/Dry Lymphatic: No Adenopathy Short Stay Diagnosis Discharge Diagnosis-Short Stay Admission Diagnosis: ACCIDENTAL PAIN MEDICATION OVERDOSE CHRONIC PAIN DIABETES MELLITUS HYPERTENSION PERIPHERAL NEUROPATHY ACUTE ON CHRONIC RENAL INSUFFICIENCY DEHYDRATION Final Discharge Diagnosis: ACCIDENTAL PAIN MEDICATION OVERDOSE CHRONIC PAIN DIABETES MELLITUS HYPERTENSION PERIPHERAL NEUROPATHY ACUTE ON CHRONIC RENAL INSUFFICIENCY DEHYDRATION Conclusion Labs Laboratory Tests 01/05/21 17:34: White Blood Count 13.2H, Red Blood Count 4.25, Hemoglobin 12.6, Hematocrit 40, Mean Corpuscular Volume 95, Mean Corpuscular Hemoglobin 30, Mean Corpuscular Hemoglobin Concent 31L, Red Cell Distribution Width 13.2, Platelet Count 173, Mean Platelet Volume 11.2, Immature Granulocyte % (Auto) 0, Neutrophils (%) (Auto) 84H, Lymphocytes (%) (Auto) 7L, Monocytes (%) (Auto) 7, Eosinophils (%) (Auto) 2, Basophils (%) (Auto) 0, Neutrophils # (Auto) 11.1H, Lymphocytes # (Auto) 0.9L, Monocytes # (Auto) 1.0, Eosinophils # (Auto) 0.2, Basophils # (Auto) 0.0, Immature Granulocyte # (Auto) 0.1, Neutrophils % (Manual) 86, Lymphocytes % (Manual) 3, Monocytes % (Manual) 10, Eosinophils % (Manual) 1, Anisocytosis SLIGHT, Elliptocytes SLIGHT, Blood Morphology Comment NA, Prothrombin Time 14.1, INR Comment 1.1, Activated Partial Thromboplast Time 39H, D-Dimer 2.57H, Sodium Level 136, Potassium Level 4.0, Chloride Level 100, Carbon Dioxide Level 21, Anion Gap 15H, Blood Urea Nitrogen 41H, Creatinine 1.59H, Estimat Glomerular Filtration Rate 31, BUN/Creatinine Ratio 26, Glucose Level 225H, Lactic Acid Level 1.35, Calcium Level 9.2, Corrected Calcium 9.3, Total Bilirubin 0.4, Aspartate Amino Transf (AST/SGOT) 19, Alanine Aminotransferase (ALT/SGPT) 12, Alkaline Phosphatase 142H, Troponin I < 0.028, Total Protein 7.4, Albumin 3.9 01/05/21 18:55: Urine Color YELLOW, Urine Clarity SL CLOUDY, Urine pH 5.5, Urine Specific [place] 1.020, Urine Protein NEGATIVE, Urine Glucose (UA) NEGATIVE, Urine Ketones NEGATIVE, Urine Nitrite NEGATIVE, Urine Bilirubin NEGATIVE, Urine Urobilinogen 0.2, Urine Leukocyte Esterase NEGATIVE, Urine RBC (Auto) NEGATIVE, Urine RBC 2-5H, Urine WBC 5-10H, Urine Squamous Epithelial Cells 0-2, Urine Renal Epithelial Cells 0-2, Urine Crystals NONE, Urine Bacteria FEWH, Urine Casts PRESENT, Urine Hyaline Casts 2-5H, Urine Mucus NEGATIVE, Urine Culture Indicated CULTURE PENDING 01/06/21 05:26: White Blood Count 10.9, Red Blood Count 3.81, Hemoglobin 11.4L, Hematocrit 35, Mean Corpuscular Volume 92, Mean Corpuscular Hemoglobin 30, Mean Corpuscular Hemoglobin Concent 33, Red Cell Distribution Width 13.2, Platelet Count 154, Mean Platelet Volume 11.3, Immature Granulocyte % (Auto) 0, Neutrophils (%) (Auto) 82H, Lymphocytes (%) (Auto) 10L, Monocytes (%) (Auto) 7, Eosinophils (%) (Auto) 1, Basophils (%) (Auto) 0, Neutrophils # (Auto) 8.9H, Lymphocytes # (Auto) 1.0, Monocytes # (Auto) 0.8, Eosinophils # (Auto) 0.1, Basophils # (Auto) 0.0, Immature Granulocyte # (Auto) 0.0, Sodium Level 138, Potassium Level 3.6, Chloride Level 103, Carbon Dioxide Level 23, Anion Gap 12, Blood Urea Nitrogen 30H, Creatinine 0.96, Estimat Glomerular Filtration Rate 56, BUN/Creatinine Ratio 31, Glucose Level 232H, Calcium Level 8.6 Conclusion/Plan ACCIDENTAL PAIN MEDICATION OVERDOSE - WITH HX OF CHRONIC PAIN - ADVISED PT'S DTR TO AVOID LEAVING EXTRA PILLS OUT FOR HER SINCE YAHAIRA IS NOT ABLE TO REMEMBER WHEN/HOW MUCH SHE TAKES AND MAY HAVE ACCIDENTALLY OVER- DOSED. - THIS TYPE OF EVENT HAPPENED THE LAST TIME THAT YAHAIRA WAS LEFT AT HOME ALONE WITH MEDICATIONS. - I BELIEVE THAT SHE IS NOT REMEMBERING IF SHE TOOK HER MEDICATIONS AND ACCIDENTALLY TAKES TOO MUCH DIABETES MELLITUS - RESUME HOME REGIMEN ON DC. HYPERTENSION - RESUME HOME REGIMEN ON DC. PERIPHERAL NEUROPATHY - RESUME GABAPENTIN ACUTE ON CHRONIC RENAL INSUFFICIENCY WITH DEHYDRATION - IMPROVED ON FLUIDS DC TO HOME, FOLLOW UP IN [facility] IN 1 WEEK DEANGELO FIGUEROA MD Jan 06, 2021 12:09
--- NOTE | 2021-01-06 12:19 | Discharge Inst-Simple/Standard ---
Discharge Inst-Standard Reconcile Patient Problems Problems Reviewed?: Yes Discharge Medications New, Converted or Re-Newed RX: Other (NO CHANGE IN HOME MEDICATIONS) Patient Instructions/Follow Up Plan of Care/Instructions/FU: [address] [facility] Activity as Tolerated: Yes Discharge Diet: ADA Diet Health Concerns: HYPOXIA, PERIPHERAL NEUROPATHY, DIABETES MELLITUS Return to The Hospital For: ANY CONCERN FOR WORSENING SYMPTOMS, SHORTNESS OF BREATH BEYOND USUAL OR OTHER LIFETHREATENING ILLNESS OR INJURY DEANGELO FOSTER MD Jan 06, 2021 12:19
[2021-01-06 15:11] VITALS: BP 150/83
[2021-01-06] MEDS ORDERED: cefTRIAXone 1,000 MG/SWFI 10 ML IV PUSH IV SCH ×2 (21:00)
== END 2021-01-06 12:09 | disposition home or self-care (01) ==
LOC: EDUNIT# 17:29 → ER 17:31 → UNDOADMOB 20:39 → EDLOC 20:39 → INTOOBSV 20:39 → 4TH 20:39 → UNDODISOB 01-06 15:12
PROVIDERS: ADMIT Family Medicine; ATTEND Family Medicine
DX: T50.901A Poisoning by unspecified drugs, medicaments and biological substances, accidental (unintentional), initial encounter (principal); E11.22 Type 2 diabetes mellitus with diabetic chronic kidney disease; I12.9 Hypertensive chronic kidney disease with stage 1 through stage 4 chronic kidney disease, or unspecified chronic kidney disease; N18.9 Chronic kidney disease, unspecified; I10 Essential (primary) hypertension; E11.42 Type 2 diabetes mellitus with diabetic polyneuropathy; I25.10 Atherosclerotic heart disease of native coronary artery without angina pectoris; E78.00 Pure hypercholesterolemia, unspecified; K21.9 Gastro-esophageal reflux disease without esophagitis; K59.09 Other constipation; M19.90 Unspecified osteoarthritis, unspecified site; R41.82 Altered mental status, unspecified; F41.9 Anxiety disorder, unspecified; F32.A Depression, unspecified; Z79.891 Long term (current) use of opiate analgesic; Z79.4 Long term (current) use of insulin; Z90.710 Acquired absence of both cervix and uterus
CPT/HCPCS: 36415; 51702; 70450; 71045; 74176; 80048; 80053; 81000; 83605; 84484; 85007; 85025; 85027; 85379; 85610; 85730; 87040; 87088; 93005; 93041; 96374; 96375; G0378

== ENCOUNTER → 2021-10-23 | Outpatient (CLI) | payer MEDICARE, MEDICAID ==
[~2021-10-23] MED LIST changes: +OMEP20TA56 PO; -OMEP20TA7 PO
--- NOTE | 2021-10-23 15:47 | Diagnostic Imaging Report ---
CLINICAL INDICATION: Patient has been having confusion. EXAM: MRI of the brain performed without IV contrast. Sequences include sagittal T1, axial T2, axial flair, axial gradient echo, DWI, ADC map, and axial T1. COMPARISON: Head CT without contrast dated 01/05/2021. FINDINGS: There is no evidence of acute cerebral infarct, intracranial hemorrhage, or gross mass effect. There is susceptibility artifact in the suprasellar region related to aneurysmal coils. The visualized agdaagux of Richard vascular structures show no significant abnormality as visualized. Again seen is right craniotomy with right frontal lobe resection changes and adjacent gliosis. There are focal and confluent areas of high T2 signal white matter changes involving both cerebral hemispheres and periventricular regions. There is no hydrocephalus. There is moderate consolidation involving the right maxillary sinus and minimal mucosal thickening involving the left maxillary sinus. There is a small amount of fluid involving the left mastoid air cells. IMPRESSION: 1: Stable CT scan of the brain with no evidence of an acute intracranial process. 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 3: Again seen is right craniotomy with right frontal lobe resection changes and adjacent gliosis. Dictated by: Dictated on workstation # [id number]
== END ==
LOC: RAD 10-17 14:19
PROVIDERS: ATTEND Nurse Practitioner Family
DX: R44.1 Visual hallucinations (principal)
CPT/HCPCS: 70551

== ENCOUNTER → 2021-11-25 | Outpatient (CLI) | payer MEDICARE, MEDICAID ==
--- NOTE | 2021-11-25 15:08 | Diagnostic Imaging Report ---
INDICATION: Pain after a fall. 2 views were obtained FINDINGS: The alignment is normal. There is no fracture or dislocation. The soft tissues are unremarkable. IMPRESSION: No acute fracture or dislocation. Dictated by: Dictated on workstation # [id number]
--- NOTE | 2021-11-25 16:36 | Diagnostic Imaging Report ---
INDICATION: Left hip pain. FINDINGS: 2 views. Total arthroplasty of the left hip. Components are all in good alignment. The no evidence of bony fracture. IMPRESSION: Satisfactory appearing arthroplasty, left hip. Dictated by: Dictated on workstation # [id number]
--- NOTE | 2021-11-25 16:38 | Diagnostic Imaging Report ---
INDICATION: Right shoulder pain. FINDINGS: 3 views. Glenohumeral joint shows good alignment. There is a considerable narrowing of the joint space. Sclerosis along the articulating surface. Mild hypertrophic changes are seen along the inferior humeral head. AC joint shows good alignment with mild hypertrophic changes. There are no fractures. No soft tissue calcification. There is noted rib fracture involving the posterior lateral right 6th rib. 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 Rib fracture posterior lateral right 6th rib. Dictated by: Dictated on workstation # [id number]
== END ==
LOC: RAD 12:42
PROVIDERS: ATTEND Nurse Practitioner Family
DX: M19.011 Primary osteoarthritis, right shoulder (principal); S22.31XA Fracture of one rib, right side, initial encounter for closed fracture; M25.552 Pain in left hip; W19.XXXA Unspecified fall, initial encounter
CPT/HCPCS: 73030; 73060; 73502

== ENCOUNTER 2022-01-26 08:28 | Inpatient (IN) | payer MEDICARE, MEDICAID ==
[~2022-01-26] VITALS: Ht 170.2 cm; Wt 100.8 kg
--- NOTE | 2022-01-26 08:51 | ED General ---
General Chief Complaint: Trauma-Non Activation Stated Complaint: FALL Nursing Triage Note: PT TO RM 7 WITH COMPLAINT OF FALL. STATES FELL THIS MORNING WHEN GETTING OUT OF BED. DAUGHTER REPORTS PT HAS FALLEN AT LEAST 4X THIS MONTH. WAS RECENTLY ADMITTED TO [facility] FOR REHAB, AND HAS GONE [place] SINCE BEING DISCHARGED. History of Present Illness Date Seen by Provider: Jan 26, 2022 Time Seen by Provider: 08:40 Initial Comments Patient is a an elderly 86-year-old lady who presents to the emergency department with her daughter chief complaint of right shoulder pain, generalized weakness and malaise. Patient has a history of diabetes. She has chronic lymphedema in her lower extremities. She is on Lasix 40 mg twice daily. Patient was recently at [facility] for physical therapy/rehabilitation, discharged at the end of December. She has been home about 3 weeks. Daughter states that she admitted to her home physical therapist that she lied to the [facility] in order to be able to be discharged to home sooner. Patient states that she has had multiple falls where she just gets so weak her legs will not support her. This morning her mattress slid off the bed frame and she fell onto the floor. She complains of pain to the right shoulder. Limited range of motion due to pain. She has not taken her morning medications this morning. She has had some contact with a family member who was recently COVID-positive. She denies symptoms of illness, fevers, chills, cough or congestion. She has had progressive weight gain over the last several weeks with increased swelling in her lower extremities. No obvious drainage from the left lower extremity which does chronically swell more than the right. Denies dysuria. Has urinary frequency and some incontinence. No problems with black or bloody stool. 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 Her only physician is Dr. Figueroa. Timing/Duration: Other (1 month) Severity: Severe Associated Systoms: Headaches, Malaise, Weakness Allergies and Home Medications Allergies Coded Allergies: No Known Drug Allergies (Unverified , 11/16/19) Patient Home Medication List Home Medication List Reviewed: Yes Carvedilol (Carvedilol) 25 Mg Tablet, 25 MG PO BID, (Reported) Entered as Reported by: EDWIN ANGELA on 09/11/162022 Docusate Sodium (Colace) 100 Mg Capsule, 100 MG PO BID, (Reported) Entered as Reported by: EDWIN ANGELA on 09/11/162022 Escitalopram Oxalate (Escitalopram Oxalate) 20 Mg Tablet, 20 MG PO HS, (Reported) Entered as Reported by: SULEIMAN SANCHEZ on 12/11/17 1311 Furosemide (Furosemide) 20 Mg Tablet, 40 MG PO 0800,1600, (Reported) Entered as Reported by: ANDRIA ROMERO on 07/06/18 1148 Gabapentin (Gabapentin) 100 Mg Capsule, 100 MG PO DAILY, (Reported) Entered as Reported by: EDWIN ANGELA on 09/11/162022 Gabapentin (Gabapentin) 100 Mg Capsule, 200 MG PO 1600, (Reported) Entered as Reported by: REGIS SORIA on 12/29/18 154 Gabapentin (Neurontin) 300 Mg Capsule, 300 MG PO HS, (Reported) Entered as Reported by: SOFIA FRANCISCO on 05/03/20 0935 Hydrocodone Bit/Acetaminophen (HYDROcodone/APAP 10/325 TABLET) 1 Ea Tab, 1 EA PO Q6HR PRN for PAIN-MODERATE (5-7) Prescribed by: DEANGELO FIGUEROA on 05/07/20 0904 Insulin Degludec (Tresiba Flextouch U-200) 200 Unit/1 Ml Insuln.pen, 40 UNIT SQ HS, (Reported) Entered as Reported by: REGIS SORIA on 12/29/18 1543 Omeprazole (Omeprazole) 20 Mg Capsule.dr, 20 MG PO 1200, (Reported) Entered as Reported by: SULEIMAN SANCHEZ on 12/11/17 1311 Potassium Chloride (K-Tab ER) 10 Meq Tablet.er, 10 MEQ PO 0800,1600, (Reported) Entered as Reported by: SOFIA FRANCISCO on 05/03/20 0935 Simvastatin (Simvastatin) 20 Mg Tablet, 20 MG PO HS, (Reported) Entered as Reported by: EDWIN ANGELA on 09/11/162022 Review of Systems Review of Systems Constitutional: see HPI, malaise, weakness EENTM: no symptoms reported Respiratory: no symptoms reported, other (chronically on oxygen 2L @ home) Cardiovascular: edema Gastrointestinal: no symptoms reported Genitourinary: frequency, incontinence : No Skin: other (drainage from left leg) All Other Systems Reviewed Negative Unless Noted: Yes Past Epgtamk-Kcgojt-Usepdc Hx Patient Social History Tobacco Use?: No Use of E-Cig and/or Vaping dev: No Substance use?: No Alcohol Use?: No Pt feels they are or have been: No Immunizations Up To Date Tetanus Booster (TDap): Unknown First/Initial COVID19 Vaccinat: AUGUST 2020 Second COVID19 Vaccination Sacha: SEPTEMBER 2020 Third COVID19 Vaccination Date: AUGUST 2020 Seasonal Allergies Seasonal Allergies: No Past Medical History Surgeries: Yes (bilat hip replacement, wrist surgery, port/REMOVAL, brain aneurysm removed) Hysterectomy, Joint Replacement, Orthopedic Respiratory: Yes (O2 2L NC AT NIGHT) Currently Using CPAP: No Currently Using BIPAP: No Cardiac: Yes Coronary Artery Disease, High Cholesterol, Hypertension Neurological: Yes (brain anuerysm removed) 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 Disorders: No Female 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 Disorders: 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 Sexually Transmitted Disease: No HIV/AIDS: No Genitourinary: Yes (HX RENAL FAILURE) Renal Failure Gastrointestinal: Yes Gastroesophageal Reflux, Chronic Constipation Musculoskeletal: Yes Degenerate Disk Disease, Arthritis Endocrine: Yes Diabetes, Non-Insulin dep HEENT: Yes (GLASSES, DENTURES) Loss of Vision: Denies Hearing Impairment: Denies Cancer: No Psychosocial: Yes Anxiety, Depression Integumentary: No Blood Disorders: No Adverse Reaction/Blood Tranf: No (N/A) Family Medical History Myocardial infarction 19 MOTHER Heart Disease, Hypertension Physical Exam Vital Signs Vital Signs - First Documented 01/26/22 08:36 Temp 36.7 Pulse 81 Resp 16 B/P (MAP) 144/80 (101) Pulse Ox 96 O2 Delivery Nasal Cannula O2 Flow Rate 2.00 Capillary Refill : Less Than 3 Seconds Height, Weight, BMI Height: 5'8.00" Weight: 212lbs. 7.0oz. 96.319201nm; 36.00 BMI Method:Stated General Appearance: No Apparent Distress, WD/WN, Chronically ill Eyes: Right Eye Other (small healing bruise inferior to right eye (from fall about 1-2 weeks ago)); Bilateral Eye Normal Inspection, Bilateral Eye PERRL, Bilateral Eye EOMI HEENT: PERRL/EOMI, TMs Normal Neck: Normal Inspection Respiratory: No Accessory Muscle Use, No Respiratory Distress, Crackles (accasional scattered crackles; no wheeze or distress; patient arrives without oxygen on - room air sat 90-93%); No Respiratory Distress Cardiovascular: Regular Rate, Rhythm (80's), Normal Peripheral Pulses Gastrointestinal: Normal Bowel Sounds, Soft Rectal: Normal Exam, Heme Negative Stool Extremity: Normal Capillary Refill, Inflammation (mild BLE), Pedal Edema (3+ edema L>R, clear drainage from the anterior left live) Neurologic/Psychiatric: Alert, Oriented x3, No Motor/Sensory Deficits, Depressed Affect Skin: Warm/Dry, Pallor, Other (drainage left anterior live from edema, shallow skin wound mid anterior left live - does not appear infected; mild erythema BLE; both LE tender to palpation) Progress/Results/Core Measures Suspected Sepsis SIRS Temperature: Pulse: 81 Respiratory Rate: 16 Laboratory Tests 01/26/22 08:50: White Blood Count 8.7 Blood Pressure 144 /80 Mean: 101 Laboratory Tests 01/26/22 08:50: Creatinine 1.09, Platelet Count 263, Total Bilirubin 0.6 Results/Orders Lab Results Laboratory Tests Test 01/26/22 08:45 01/26/22 08:50 01/26/22 09:00 Range/Units Glucometer 134 H 70-110 MG/DL White Blood Count 8.7 4.3-11.0 10^3/uL Red Blood Count 3.82 3.80-5.11 10^6/uL Hemoglobin 9.2 L 11.5-16.0 g/dL Hematocrit 31 L 35-52 % Mean Corpuscular Volume 81 80-99 fL Mean Corpuscular Hemoglobin 24 L 25-34 pg Mean Corpuscular Hemoglobin Concent 30 L 32-36 g/dL Red Cell Distribution Width 16.6 H 10.0-14.5 % Platelet Count 263 130-400 10^3/uL Mean Platelet Volume 10.5 9.0-12.2 fL Immature Granulocyte % (Auto) 0 % Neutrophils (%) (Auto) 76 H 42-75 % Lymphocytes (%) (Auto) 13 12-44 % Monocytes (%) (Auto) 8 0-12 % Eosinophils (%) (Auto) 2 0-10 % Basophils (%) (Auto) 1 0-10 % Neutrophils # (Auto) 6.6 1.8-7.8 10^3/uL Lymphocytes # (Auto) 1.1 1.0-4.0 10^3/uL Monocytes # (Auto) 0.7 0.0-1.0 10^3/uL Eosinophils # (Auto) 0.2 0.0-0.3 10^3/uL Basophils # (Auto) 0.0 0.0-0.1 10^3/uL Immature Granulocyte # (Auto) 0.0 0.0-0.1 10^3/uL Sodium Level 139 135-145 MMOL/L Potassium Level 4.9 3.6-5.0 MMOL/L Chloride Level 103 98-107 MMOL/L Carbon Dioxide Level 24 21-32 MMOL/L Anion Gap 12 5-14 MMOL/L Blood Urea Nitrogen 20 H 7-18 MG/DL Creatinine 1.09 0.60-1.30 MG/DL Estimat Glomerular Filtration Rate 50 BUN/Creatinine Ratio 18 Glucose Level 141 H 70-105 MG/DL Calcium Level 8.9 8.5-10.1 MG/DL Corrected Calcium 9.1 8.5-10.1 MG/DL Total Bilirubin 0.6 0.1-1.0 MG/DL Aspartate Amino Transf (AST/SGOT) 29 5-34 U/L Alanine Aminotransferase (ALT/SGPT) 19 0-55 U/L Alkaline Phosphatase 125 40-136 U/L B-Type Natriuretic Peptide 199.9 H <100.0 PG/ML Total Protein 7.2 6.4-8.2 GM/DL Albumin 3.7 3.2-4.5 GM/DL Influenza Type A (RT-PCR) Not Detected Not Detecte Influenza Type B (RT-PCR) Not Detected Not Detecte SARS-CoV-2 RNA (RT-PCR) Not Detected Not Detecte Urine Color YELLOW Urine Clarity CLEAR Urine pH 7.0 5-9 Urine Specific [place] 1.020 1.016-1.022 Urine Protein 1+ H NEGATIVE Urine Glucose (UA) NEGATIVE NEGATIVE Urine Ketones NEGATIVE NEGATIVE Urine Nitrite NEGATIVE NEGATIVE Urine Bilirubin NEGATIVE NEGATIVE Urine Urobilinogen 1.0 < = 1.0 MG/DL Urine Leukocyte Esterase NEGATIVE NEGATIVE Urine RBC (Auto) NEGATIVE NEGATIVE Urine RBC NONE /HPF Urine WBC RARE /HPF Urine Squamous Epithelial Cells RARE /HPF Urine Crystals NONE /LPF Urine Bacteria NEGATIVE /HPF Urine Casts NONE /LPF Urine Mucus NEGATIVE /LPF Urine Culture Indicated NO My Orders Orders - FESTUS SHARMA MD Ed Iv/Invasive Line Start (01/26/22 08:49) Cbc With Automated Diff (01/26/22 08:49) Comprehensive Metabolic Panel (01/26/22 08:49) Ua Culture If Indicated (01/26/22 08:49) Bnp [place] (01/26/22 08:49) Chest 1 View, Ap/Pa Only (01/26/22 08:49) Covid 19 Inhouse Test (01/26/22 08:49) Influenza A And B By Pcr (01/26/22 08:49) Isolation Central Supply Req (01/26/22 08:49) Shoulder, Right, 3 Views (01/26/22 08:51) Furosemide Injection (Lasix Injection) (01/26/22 10:00) Medications Given in ED Current Medications Medications Dose Ordered Sig/Mauricio Route Start Time Stop Time Status Last Admin Dose Admin Furosemide 40 mg ONCE ONCE IVP 01/26/22 10:00 01/26/22 10:01 DC 01/26/22 10:08 40 MG Vital Signs/I&O 01/26/22 08:36 Temp 36.7 Pulse 81 Resp 16 B/P (MAP) 144/80 (101) Pulse Ox 96 O2 Delivery Nasal Cannula O2 Flow Rate 2.00 Capillary Refill : Less Than 3 Seconds Blood Pressure Mean: 101 Progress Note : Time: 10:51 Progress Note Patient reevaluated after labs, chest x-ray. She is resting comfortably. Daughter provides further past medical history to contribute to the evaluation. She states that at this time she seems to be talking in her sleep and mentions that she thought when she woke up this morning she was hallucinating. SHe also mentioned her mother admitted to her recently that she "lied" to the therapists at the [facility] so that she could be discharged back to home sooner. . Vital signs remain stable, 96% on 2 L per nasal cannula of oxygen. She had evidence of some anemia today - down to a hemoglobin of 9 from a previous of eleven 1 year ago. Also serum chemistry is basically within normal limits her BNP is 199. Chest x-ray shows no evidence of pulmonary vascular congestion however she does have a fairly significant cardiomegaly. I reviewed previous medical records she did have an echocardiogram done in 2020 which showed a 55% ejection fraction. Right shoulder xray negative for fracture/dislocation. Urinalysis is negative for infection. She did receive 40 of Lasix IV here in the department. She has had really good urine output since the lasix. Suspect that she will probably need readmission for rehabilitation and strengthening if not legitimate long-term placement. I discussed the case with Dr. Figueredo. We will put her on the medical floor, inpatient statue Diagnostic Imaging Diagonstic Imaging: Xray Plain Films/CT/US/NM/MRI: chest Comments [facility], [place] NAME: MULU PISANO [facility] REC#: [id number] PT STATUS: REG ER : 1935 PHYSICIAN: FESTUS SHARMA MD ADMIT DATE: 01/26/22/ER Draft Date of Exam:01/26/22 CHEST 1 VIEW, AP/PA ONLY CLINICAL INDICATION: Patient fell this morning when getting out of bed. Daughter reports the patient has fallen out of bed 4 times this month. EXAM: Portable chest x-ray upright view. COMPARISON: Chest x-ray dated 01/05/2021. FINDINGS: Lungs/pleura: Lungs are clear. There is no pneumothorax. There is no pleural effusion. Mediastinum: Unremarkable. Pulmonary vasculature: Unremarkable. Heart: Stable cardiomegaly. Bones/extrathoracic soft tissue: There are degenerative spurs involving the thoracic spine. Again noted old fracture involving the posterior lateral aspect of the right T6 rib. IMPRESSION: 1: There is no radiographic evidence of acute cardiopulmonary process. 2: Stable cardiomegaly with no significant pulmonary vasculature congestion. Dictated on workstation # [id number] Dict: 01/26/22922 Trans: 01/26/22927 [facility] [id number] Interpreted by: AMANDA MCRAE MD Electronically signed by: Diagonstic Imaging: Xray Comments [facility] [place], [place] NAME: MULU PISANO [facility] REC#: [id number] PT STATUS: REG ER : 1935 PHYSICIAN: FESTUS SHARMA MD ADMIT DATE: 01/26/22/ER Draft Date of Exam:01/26/22 SHOULDER, RIGHT, 3 VIEWS CLINICAL INDICATION: Patient fell this morning when getting out of bed and daughter reports the patient has fallen at least 4 times this month. EXAM: X-ray of the right shoulder, 3 views. COMPARISON: X-ray of the right shoulder dated 11/25/2021. FINDINGS: There is no acute fracture or dislocation. There are mild hypertrophic spurs involving the medial aspect right humeral head/neck junction region. There is moderate glenohumeral joint space narrowing. 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 Dictated on workstation # [id number] Dict: 01/26/22923 Trans: 01/26/22927 [facility] [id number] Interpreted by: AMANDA MCRAE MD Electronically signed by: Departure Communication (Admissions) Time/Spoke to Admitting Phy: 10:[address] Pena Impression Primary Impression: Anemia Qualified Codes: D64.9 - Anemia, unspecified Additional Impressions: Right shoulder injury Qualified Codes: S49.91XA - Unspecified injury of right shoulder and upper arm, initial encounter Generalized weakness Anasarca Disposition: ADMITTED INPATIENT Condition: Stable Admissions Decision to Admit Reason: Admit from ER (General) Decision to Admit/Date: Jan 26, 2022 Time/Decision to Admit Time: 10:55 Departure-Patient Inst. Referrals: DEANGELO FIGUEROA MD (PCP/Family) Primary Care Physician Copy Copies To 1: DEANGELO FIGUEROA MD, KATHRYN M MD Jan 26, 2022 08:51
[2022-01-26 09:02] LABS: BASOPHILS % (AUTO) 1 % (0-10); EOSINOPHILS # (AUTO) 0.2 10^3/uL (0.0-0.3); EOSINOPHILS % (AUTO) 2 % (0-10); HEMATOCRIT 31 % (35-52); HEMOGLOBIN 9.2 g/dL (11.5-16.0); LYMPHOCYTES # (AUTO) 1.1 10^3/uL (1.0-4.0); LYMPHOCYTES % (AUTO) 13 % (12-44); MEAN CORPUSCULAR HEMOGLOBIN 24 pg (25-34); MEAN CORPUSCULAR HGB CONC 30 g/dL (32-36); MEAN CORPUSCULAR VOLUME 81 fL (80-99); MEAN PLATELET VOLUME 10.5 fL (9.0-12.2); MONOCYTES # (AUTO) 0.7 10^3/uL (0.0-1.0); MONOCYTES % (AUTO) 8 % (0-12); NEUTROPHILS # (AUTO) 6.6 10^3/uL (1.8-7.8); NEUTROPHILS % (AUTO) 76 % (42-75); PLATELET COUNT 263 10^3/uL (130-400); WHITE BLOOD COUNT 8.7 10^3/uL (4.3-11.0)
[2022-01-26 09:06] LABS: BILIRUBIN,URINE NEGATIVE (NEGATIVE); CLARITY,URINE CLEAR; COLOR,URINE YELLOW; GLUCOSE, URINE (UA) NEGATIVE (NEGATIVE); KETONES,URINE NEGATIVE (NEGATIVE); LEUKOCYTE ESTERASE ,URINE NEGATIVE (NEGATIVE); NITRITE,URINE NEGATIVE (NEGATIVE); PROTEIN,URINE 1+ (NEGATIVE)
[2022-01-26 09:14] LABS: BACTERIA,URINE NEGATIVE /HPF; SQUAMOUS EPITHELIAL CELL,UR RARE /HPF; WBC,URINE RARE /HPF
--- NOTE | 2022-01-26 09:28 | Diagnostic Imaging Report ---
CLINICAL INDICATION: Patient fell this morning when getting out of bed. Daughter reports the patient has fallen out of bed 4 times this month. EXAM: Portable chest x-ray upright view. COMPARISON: Chest x-ray dated 01/05/2021. FINDINGS: Lungs/pleura: Lungs are clear. There is no pneumothorax. There is no pleural effusion. Mediastinum: Unremarkable. Pulmonary vasculature: Unremarkable. Heart: Stable cardiomegaly. Bones/extrathoracic soft tissue: There are degenerative spurs involving the thoracic spine. Again noted old fracture involving the posterior lateral aspect of the right T6 rib. IMPRESSION: 1: There is no radiographic evidence of acute cardiopulmonary process. 2: Stable cardiomegaly with no significant pulmonary vasculature congestion. Dictated by: Dictated on workstation # [id number]
--- NOTE | 2022-01-26 09:29 | Diagnostic Imaging Report ---
CLINICAL INDICATION: Patient fell this morning when getting out of bed and daughter reports the patient has fallen at least 4 times this month. EXAM: X-ray of the right shoulder, 3 views. COMPARISON: X-ray of the right shoulder dated 11/25/2021. FINDINGS: There is no acute fracture or dislocation. There are mild hypertrophic spurs involving the medial aspect right humeral head/neck junction region. There is moderate glenohumeral joint space narrowing. 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 Dictated by: Dictated on workstation # [id number]
[2022-01-26 09:38] LABS: ALBUMIN 3.7 GM/DL (3.2-4.5); CALCIUM 8.9 MG/DL (8.5-10.1); TOTAL PROTEIN 7.2 GM/DL (6.4-8.2)
[2022-01-26 09:39] LABS: POTASSIUM 4.9 MMOL/L (3.6-5.0)
[2022-01-26 09:40] LABS: BILIRUBIN,TOTAL 0.6 MG/DL (0.1-1.0); CREATININE SERUM 1.09 MG/DL (0.60-1.30)
[2022-01-26] MEDS ORDERED: FUROSEMIDE 40 MG/4 ML INJ (LASIX) IVP ONE (10:00)
--- NOTE | 2022-01-26 11:26 | History & Physical-Hospitalist ---
History of Present Illness HPI/Chief Complaint Patient is an 86-year-old female with past medical history of hypertension, A. fib, heart failure, diabetes, hyperlipidemia who presented to the emergency department due to weakness and falls. She was recently admitted to [facility] and was able to be discharged home. Since that time she has had a slow decline in her physical ability. Her daughter reports that she has had multiple falls at home. She has been working with home health but despite that has continued to decline. She presented to the ER this morning after a fall and she was having right shoulder pain. Her mattress slid off the bed frame and she fell to the floor. Daughter reports that she has had increased weight gain as well with increasing edema of her lower extremities. Source: patient, family Date Seen 01/26/22 Time Seen by a Provider: 11:59 Attending Physician Deangelo Figueroa MD PCP Admitting Physician: Argelia Pena MD Attending Physician: Argelia Pena MD Referring Physician Date of Admission Jan 26, 2022 at 10:50 Home Medications & Allergies Home Medications Reviewed patient Home Medication Reconciliation performed by pharmacy medication reconciliations vending service technician and/or nursing. Patients Allergies have been reviewed. Allergies Allergies Coded Allergies No Known Drug Allergies (Unverified11/16/19) Past Gwrmvgs-Jjjnke-Jcaott Hx Patient Social History Tobacco Use?: No Use of E-Cig and/or Vaping dev: No Substance use?: No Alcohol Use?: No Pt feels they are or have been: No Immunizations Up To Date Date of Influenza Vaccine: Dec 08, 2019 First/Initial COVID19 Vaccinat: AUGUST 2020 Second COVID19 Vaccination Sacha: SEPTEMBER 2020 Tetanus Booster (TDap): Unknown Date of Pneumonia Vaccine: Aug 08, 2011 Seasonal Allergies Seasonal Allergies: No Current Status Advance Directives: No Primary Language: Mohawk Preferred Spoken Language: Mohawk Past Medical History Surgeries: Hysterectomy, Joint Replacement, Orthopedic Currently Using CPAP: No Currently Using BIPAP: No Coronary Artery Disease, High Cholesterol, Hypertension 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 Sexually Transmitted Disease: No HIV/AIDS: No Renal Failure Gastroesophageal Reflux, Chronic Constipation Degenerate Disk Disease, Arthritis Diabetes, Non-Insulin dep Loss of Vision: Denies Hearing Impairment: Denies Anxiety, Depression Blood Disorders: No Adverse Reaction/Blood Tranf: No (N/A) Family Medical History Reviewed Nursing Family Hx Myocardial infarction 19 MOTHER Heart Disease, Hypertension Review of Systems Constitutional: No chills, No fever; weakness EENTM: no symptoms reported Respiratory: no symptoms reported Cardiovascular: no symptoms reported Gastrointestinal: no symptoms reported Genitourinary: no symptoms reported Musculoskeletal: see HPI Skin: no symptoms reported Psychiatric/Neurological: No Symptoms Reported Physical Exam Physical Exam Vital Signs Vital Signs - First Documented 01/28/22 01/28/22 01:00 04:00 Temp 36.2 Pulse 79 Resp 20 B/P (MAP) 142/65 (90) Pulse Ox 94 O2 Delivery Nasal Cannula O2 Flow Rate 2.00 Capillary Refill : Less Than 3 Seconds Height, Weight, BMI Height: 5'8.00" Weight: 212lbs. 7.0oz. 96.295283zg; 36.00 BMI Method:Stated General Appearance: No Apparent Distress, Chronically ill, Obese, Other (sleepy) HEENT: PERRL/EOMI, Moist Mucous Membranes; No Scleral Icterus (L), No Scleral Icterus (R) Neck: Normal Inspection, Supple Respiratory: Lungs Clear, No Accessory Muscle Use, No Respiratory Distress Cardiovascular: Regular Rate, Rhythm, No JVD, No Murmur Gastrointestinal: Normal Bowel Sounds, Non Tender, Soft Genital/Rectal: Other (last) Extremity: Normal Capillary Refill, Pedal Edema, Swelling (with weeping left worse than right) Neurologic/Psychiatric: Alert, Oriented x3, Normal Mood/Affect Skin: Normal Color, Erythema (bilateral lower extremities) Results Results/Procedures Labs Laboratory Tests 02/02/22 05:15 02/03/22 05:30 Patient resulted labs reviewed. Imaging: Reviewed Imaging Report Imaging [facility] [place], [place] NAME: MULU PISANO [facility] REC#: [id number] PT STATUS: REG ER : 1935 PHYSICIAN: FESTUS SHARMA MD ADMIT DATE: 01/26/22/ER Draft Date of Exam:01/26/22 CHEST 1 VIEW, AP/PA ONLY CLINICAL INDICATION: Patient fell this morning when getting out of bed. Daughter reports the patient has fallen out of bed 4 times this month. EXAM: Portable chest x-ray upright view. COMPARISON: Chest x-ray dated 01/05/2021. FINDINGS: Lungs/pleura: Lungs are clear. There is no pneumothorax. There is no pleural effusion. Mediastinum: Unremarkable. Pulmonary vasculature: Unremarkable. Heart: Stable cardiomegaly. Bones/extrathoracic soft tissue: There are degenerative spurs involving the thoracic spine. Again noted old fracture involving the posterior lateral aspect of the right T6 rib. IMPRESSION: 1: There is no radiographic evidence of acute cardiopulmonary process. 2: Stable cardiomegaly with no significant pulmonary vasculature congestion. Dictated on workstation # [id number] Dict: 01/26/22922 Trans: 01/26/22927 CVB [id number] Interpreted by: AMANDA MCRAE MD Electronically signed by: [facility] [place], [place] NAME: MULU PISANO [facility] REC#: [id number] PT STATUS: REG ER : 1935 PHYSICIAN: FESTUS SHARMA MD ADMIT DATE: 01/26/22/ER Draft Date of Exam:01/26/22 SHOULDER, RIGHT, 3 VIEWS CLINICAL INDICATION: Patient fell this morning when getting out of bed and daughter reports the patient has fallen at least 4 times this month. EXAM: X-ray of the right shoulder, 3 views. COMPARISON: X-ray of the right shoulder dated 11/25/2021. FINDINGS: There is no acute fracture or dislocation. There are mild hypertrophic spurs involving the medial aspect right humeral head/neck junction region. There is moderate glenohumeral joint space narrowing. 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 Dictated on workstation # [id number] Dict: 01/26/22923 Trans: 01/26/22927 CVB [id number] Interpreted by: AMANDA MCRAE MD Electronically signed by: Assessment/Plan Admission Diagnosis Acutely decompensated diastolic congestive heart failure due to anemia Admission Status: Inpatient Order (span 2 midnights) Reason for Inpatient Admission: FAILED OUTPATIENT MANAGEMENT WITH ORAL LASIX AND HOMEHEALTH- CONSTINUES TO DECOMPENSATE AND NOW HAS ANEMIA WITH DIASTOLIC HEART FAILURE Assessment and Plan Acutely decompensated diastolic congestive heart failure due to anemia HTN HLD Chronic a-fib baseline hemoglobin ~12 and down to 9.2 this AM FOBT negative Trend IV Lasix given in ER Last for accurate I/Os PT/OT Failed outpatient Home health Will likely need SNF placement upon DC Echo as last showed grade 3 diastolic CHF BNP elevated Hold anticoagulation with anemia IDDMII Peripheral neuropathy Chronic pain Continue home meds as appropriate CKD Stage 3A Creatinine stable, trend with diuresis DVT ppx: SCDs Diagnosis/Problems Diagnosis/Problems (1) HLD (hyperlipidemia) Status: Chronic (2) Essential (primary) hypertension Status: Chronic (3) Insulin dependent diabetes mellitus Status: Acute (4) Normocytic anemia (5) Obesity Status: Chronic (6) Age-related physical debility Status: Acute (7) Anemia Qualifiers: Anemia type: unspecified type Qualified Codes: D64.9 - Anemia, unspecified (8) Anasarca (9) Generalized weakness Status: Acute (10) Weakness Status: Acute (11) Coronary artery disease (12) Atrial fibrillation Status: Chronic Copy Copies To 1: DEANGELO FIGUEROA MD, KATELYN M MD Jan 26, 2022 11:26
[2022-01-26 11:43] VITALS: BP 124/58
[2022-01-26] MEDS ORDERED: FLU QUAD HIGH DOSE 240 MCG/0.7 ML 2022-23 (FLUZONE) IM ONE (12:00)
[2022-01-26] MEDS ORDERED: ONDANSETRON 4 MG/2 ML (SDV) Z0FRAN IV PRN (12:00)
[2022-01-26] MEDS ORDERED: CALCIUM CARBONATE 500 MG (TUMS) TAB.CHEW PO PRN (12:00)
[2022-01-26] MEDS ORDERED: LACTULOSE SYRUP 10GM/15ML (ENULOSE) 30ML UDC PO PRN (12:00)
[2022-01-26] MEDS ORDERED: polyethylene glycoL POWDER 17 GM (MIRALAX) PACK PO PRN (12:00)
[2022-01-26] MEDS ORDERED: ACETAMINOPHEN 325 MG TABLET PO PRN (12:00)
[2022-01-26] MEDS ORDERED: BISACODYL 10 MG SUPP (DULCOLAX) PR PRN (12:00)
[2022-01-26] MEDS ORDERED: MILK OF MAGNESIA 400 MG/5 ML 30 ML UDC PO PRN (12:00)
[2022-01-26] MEDS ORDERED: ANTACID SUSP 30 ML UDC (MYLANTA) PO PRN (12:00)
[2022-01-26 12:45] VITALS: BP 124/58
[2022-01-26] MEDS ORDERED: RT-ALBUTEROL SULF 2.5 MG/3 ML PRE-MIX VIAL INH PRN (13:00)
[2022-01-26 15:50] VITALS: BP 115/59
[2022-01-26] MEDS: inSUlin ASPART (NovoLOG) 1 UNIT/0.01 ML (CHARGE PER UNIT) SC SCH ×2 (17:06→21:08)
[2022-01-26 19:06] VITALS: BP 136/75
[2022-01-26] MEDS: FUROSEMIDE 40 MG/4 ML INJ (LASIX) IV SCH (20:12)
[2022-01-26 23:31] VITALS: BP 159/77
[2022-01-27 04:05] VITALS: BP 152/82
[2022-01-27] MEDS: inSUlin ASPART (NovoLOG) 1 UNIT/0.01 ML (CHARGE PER UNIT) SC SCH ×4 (04:58→20:23)
[2022-01-27 05:30] LABS: HEMATOCRIT 33 % (35-52); HEMOGLOBIN 9.5 g/dL (11.5-16.0); MEAN CORPUSCULAR HEMOGLOBIN 24 pg (25-34); MEAN CORPUSCULAR HGB CONC 29 g/dL (32-36); MEAN CORPUSCULAR VOLUME 81 fL (80-99); MEAN PLATELET VOLUME 10.4 fL (9.0-12.2); PLATELET COUNT 254 10^3/uL (130-400); WHITE BLOOD COUNT 8.3 10^3/uL (4.3-11.0)
[2022-01-27 05:44] LABS: POTASSIUM 3.3 MMOL/L (3.6-5.0)
[2022-01-27 05:50] LABS: CREATININE SERUM 0.84 MG/DL (0.60-1.30)
[2022-01-27 07:34] VITALS: BP 154/80
[2022-01-27] MEDS: FUROSEMIDE 40 MG/4 ML INJ (LASIX) IV SCH ×2 (08:30→20:23)
--- NOTE | 2022-01-27 08:42 | Progress Note ---
Subjective Subjective Date Seen by Provider: Jan 27, 2022 Time Seen by Provider: 08:30 PT CONFUSED, ALMOST OBTUNDED, SHE IS NOT ABLE TO INTERACT WELL WITH STAFF/PHYSICIAN DURING INTERVIEW TODAY. HER DTR REPORTS THAT SHE THINKS THAT ALL OF HER MOM'S MEDICATIONS HAVE BEEN KEPT AWAY FROM HER EXCEPT FOR WHAT [place] DISPENSES TO HER. ROBERTH REPORTS THAT SHE THINKS SHE HAS HAD SOME MEDICATION HIDDEN FROM [place], BUT IS TOO CONFUSED TO SPEAK. Review of Systems General: No Chills; Fatigue, Malaise Pulmonary: Dyspnea; No Cough Cardiovascular: Edema; No: Chest Pain, Palpitations Gastrointestinal: No: Nausea, Abdominal Pain Neurological: Weakness, Confusion, Other (ALMOST OBTUNDED) All Other Systems Reviewed All Other Systems Reviewed: Yes Objective Exam Vital Signs Vital Signs Date Time Temp Pulse Resp B/P (MAP) Pulse Ox O2 Delivery O2 Flow Rate FiO2 01/27/22 08:31 91 Nasal Cannula 2.00 01/27/22 07:34 36.5 80 18 154/80 (104) 96 Nasal Cannula 2.00 01/27/22 07:00 90 01/27/22 04:05 36.7 86 16 152/82 (105) 95 Nasal Cannula 2.00 01/27/22 01:00 63 01/26/22 23:31 36.1 90 18 159/77 (104) 96 Nasal Cannula 2.00 01/26/22 20:12 94 Nasal Cannula 2.00 01/26/22 19:06 36.5 92 20 136/75 (95) 94 Nasal Cannula 2.00 01/26/22 19:00 95 01/26/22 15:50 36.4 79 18 115/59 (77) 96 Nasal Cannula 2.00 01/26/22 12:47 79 01/26/22 12:45 35.9 86 96 01/26/22 12:00 Nasal Cannula 2.00 01/26/22 11:43 35.9 86 20 124/58 (80) 96 Nasal Cannula 2.00 01/26/22 11:25 84 16 102/69 94 Nasal Cannula 2.00 I & O 01/27/22 07:00 Intake Total 852 ml Output Total 3800 ml Balance -2948 ml General Appearance: Chronically ill, Obese, Other (sleepy) Eyes: Bilateral Eye Normal Inspection, Bilateral Eye PERRL, Bilateral Eye EOMI HEENT: PERRL/EOMI, Moist Mucous Membranes; No Scleral Icterus (L), No Scleral Icterus (R) Neck: Normal Inspection, Supple Respiratory: Lungs Clear, No Accessory Muscle Use, No Respiratory Distress Cardiovascular: Regular Rate, Rhythm, No JVD, No Murmur Gastrointestinal: Normal Bowel Sounds, Non Tender, Soft Rectal: Normal Exam Genital/Rectal: Other (last) Extremity: Normal Capillary Refill, Pedal Edema, Swelling Neurologic/Psychiatric: Alert, Oriented x3, Normal Mood/Affect Skin: Normal Color, Erythema (bilateral lower extremities) Results Lab Laboratory Tests 01/26/22 08:45: Glucometer 134H 01/26/22 08:50: White Blood Count 8.7, Red Blood Count 3.82, Hemoglobin 9.2L, Hematocrit 31L, Mean Corpuscular Volume 81, Mean Corpuscular Hemoglobin 24L, Mean Corpuscular Hemoglobin Concent 30L, Red Cell Distribution Width 16.6H, Platelet Count 263, Mean Platelet Volume 10.5, Immature Granulocyte % (Auto) 0, Neutrophils (%) (Auto) 76H, Lymphocytes (%) (Auto) 13, Monocytes (%) (Auto) 8, Eosinophils (%) (Auto) 2, Basophils (%) (Auto) 1, Neutrophils # (Auto) 6.6, Lymphocytes # (Auto) 1.1, Monocytes # (Auto) 0.7, Eosinophils # (Auto) 0.2, Basophils # (Auto) 0.0, Immature Granulocyte # (Auto) 0.0, Sodium Level 139, Potassium Level 4.9, Chloride Level 103, Carbon Dioxide Level 24, Anion Gap 12, Blood Urea Nitrogen 20H, Creatinine 1.09, Estimat Glomerular Filtration Rate 50, BUN/Creatinine Ratio 18, Glucose Level 141H, Calcium Level 8.9, Corrected Calcium 9.1, Total Bilirubin 0.6, Aspartate Amino Transf (AST/SGOT) 29, Alanine Aminotransferase (ALT/SGPT) 19, Alkaline Phosphatase 125, B-Type Natriuretic Peptide 199.9H, Total Protein 7.2, Albumin 3.7, Influenza Type A (RT-PCR) Not Detected, Influenza Type B (RT-PCR) Not Detected, SARS-CoV-2 RNA (RT-PCR) Not Detected 01/26/22 09:00: Urine Color YELLOW, Urine Clarity CLEAR, Urine pH 7.0, Urine Specific [place] 1.020, Urine Protein 1+H, Urine Glucose (UA) NEGATIVE, Urine Ketones NEGATIVE, Urine Nitrite NEGATIVE, Urine Bilirubin NEGATIVE, Urine Urobilinogen 1.0, Urine Leukocyte Esterase NEGATIVE, Urine RBC (Auto) NEGATIVE, Urine RBC NONE, Urine WBC RARE, Urine Squamous Epithelial Cells RARE, Urine Crystals NONE, Urine Bacteria NEGATIVE, Urine Casts NONE, Urine Mucus NEGATIVE, Urine Culture Indicated NO 01/26/22 15:51: Glucometer 157H 01/26/22 20:50: Glucometer 119H 01/26/22 23:29: Glucometer 106 01/27/22 04:55: Glucometer 114H 01/27/22 05:12: White Blood Count 8.3, Red Blood Count 4.00, Hemoglobin 9.5L, Hematocrit 33L, Mean Corpuscular Volume 81, Mean Corpuscular Hemoglobin 24L, Mean Corpuscular Hemoglobin Concent 29L, Red Cell Distribution Width 16.4H, Platelet Count 254, Mean Platelet Volume 10.4, Sodium Level 143, Potassium Level 3.3L, Chloride Level 103, Carbon Dioxide Level 28, Anion Gap 12, Blood Urea Nitrogen 13, Creatinine 0.84, Estimat Glomerular Filtration Rate 68, BUN/Creatinine Ratio 15, Glucose Level 110H, Calcium Level 9.0 01/27/22 08:13: Glucometer 117H Assessment/Plan Assessment/Plan Admission Dx ACUTE RESPIRATORY FAILURE 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 CHRONIC PAIN SYNDROME CHRONIC OPIOID USE HYPERTENSION CHRONIC ATRIAL FIBRILLATION DIABETES MELLITUS TYPE 2 HYPERLIPIDEMIA PERIPHERAL NEUROPATHY Assessment and Plan ACUTE RESPIRATORY FAILURE 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 CHRONIC PAIN SYNDROME CHRONIC OPIOID USE HYPERTENSION CHRONIC ATRIAL FIBRILLATION DIABETES MELLITUS TYPE 2 HYPERLIPIDEMIA PERIPHERAL NEUROPATHY ACUTE RESPIRATORY FAILURE MILD DIASTOLIC CONGESTIVE HEART FAILURE WITH ELEVATED BNP - CHECK ECHO - WAITING ON REPORT - LASIX GIVEN OVERNIGHT CHRONIC PAIN SYNDROME WITH CHRONIC OPIOID USE - RESTART HOME REGIMEN - START THERAPY ONCE MORE AWAKE/ALERT HYPERTENSION - RESUME HOME REGIMEN CHRONIC ATRIAL FIBRILLATION - WAITING ON ECHO REPORT - PER PRELIM - SHOWED DILATED RIGHT ATRIUM AND VENTRICLE DIABETES MELLITUS TYPE 2 - RESTART HOME INSULIN REGIMEN HYPERLIPIDEMIA - RESTART STATIN THERAPY PERIPHERAL NEUROPATHY - RESTART HOME REGIMEN ONCE RECONCILED AND PT MORE ALERT ANTICIPATE SHE WILL NEED [facility] PLACEMENT FOR REHAB ON DISCHARGE AND GROUP LEADER SEMICONDUCTOR PROCESSING REGIMEN OF CARE. DEANGELO FOSTER MD Jan 27, 2022 08:42
--- NOTE | 2022-01-27 08:56 | Physical Therapy Evaluation ---
PT Evaluation-General Medical Diagnosis Admission Date Jan 26, 2022 at 10:50 Medical Diagnosis: anasarca/anemia/right shoulder injury/weakness Onset Date: Jan 26, 2022 Therapy Diagnosis Therapy Diagnosis: generalized weakness/debility Height/Weight Height (Feet): 5 Height (Inches): 8.00 Weight (Pounds): 212 Weight (Ounces): 7.0 Precautions Precautions/Isolations: Fall Prevention, Standard Precautions Referral Physician: Jean Reason for Referral: Evaluation/Treatment Medical History Pertinent Medical History: Atrial Fib, Arthritis, DM, HTN, Neuropathy, OA, Renal Insufficiency, Smoking Current History ER via family due to fall Reviewed History: Yes Social History Home: Single Level Current Living Status: Other Family Prior Prior Level of Function SCALE: Activities may be completed with or without assistive devices. 5-Luqrbiipmw-wldzdzw completes the activity by him/herself with no assistance from a helper. 5-Set-up or Clean-up Assistance-helper sets up or cleans up; patient completes activity. Eudora assists only prior to or following the activity. 4-Supervision or Touching Assistance-helper provides verbal cues and/or touching/steadying and/or contact guard assistance as patient completes activity. Assistance may be provided throughout the activity or intermittently. 3-Partial/Moderate Assistance-helper does LESS THAN HALF the effort. Eudora lifts, holds or supports trunk or limbs, but provides less than half the effort. 2-Substantial/Maximal Assistance-helper does MORE THAN HALF the effort. Eudora lifts or holds trunk or limbs and provides more than half the effort. 9-Gacbsvajn-vtsvan does ALL the effort. Patient does none of the effort to comp lete the activity. Or, the assistance of 2 or more helpers is required for the patient to complete the activity. If activity was not attempted, code reason: 7-Patient Refused. 9-Not Applicable-not attempted and the patient did not perform the activity before the current illness, exacerbation or injury. 10-Not Attempted due to Environmental Limitations-(lack of equipment, weather restraints, etc.). 88-Not Attempted due to Medical Conditions or Safety Concerns. Bed Mobility: 6 Transfers (B,C,W/C): 6 Gait: 6 Indoor Mobility (Ambulation): Independent Prior Devices Use: Walker PT Evaluation-Current Subjective Patient is very lethargic and has difficulty with waking. Objective Patient Orientation: Person Attachments: Oxygen, Chatman Catheter ROM/Strength ROM Lower Extremities bilateral LE WFL Strength Lower Extremities 3/5 grossly bilateral LE all planes Integumentary/Posture Integumentary refer to nursing notes Bladder Incontinence: Chatman Cath Posture slightly kyphotic Neuromuscular (Tone, Coordination, Reflexes) grossly intact Sensory Vision: Functional Hearing: Functional Transfers Sit to Lying (QC): 3 Lying to Sitting/Side of Bed(Q: 3 Sit to Stand (QC): 3 Chair/Kcz-sp-Aldtk Xfer(QC): 3 Gait Mode of Locomotion: Walk Anticipated Mode of Locomotion: Walk Walk 10 feet (QC): 3 Walk 50 ft with 2 Turns(QC): 88 Walk 150 ft (QC): 88 Distance: 10' x 2 Gait Assistive Device: FWW Comments/Gait Description functional gait sequence Balance Sitting Static: Normal Sitting Dynamic: Normal Standing Static: Fair Standing Dynamic: Fair Assessment/Needs 86 y.o. female, will benefit from skilled PT to address functional strength and mobility to improve current LOF. Per family, patient does not comply with exercise and mobility in the home setting. Rehab Potential: Guarded Post Rehab Potential-Barriers: compliance PT Usp Goals Physical Sciences Instructor Goals PT Usp Goals Time Frame: Feb 15, 2022 Roll Left & Right (QC): 6 Sit to Lying (QC): 6 Lying-Sitting on Side/Bed(QC): 6 Sit to Stand (QC): 6 Chair/Kth-ir-Kqurk Xfer(QC): 6 Toilet Transfer (QC): 6 Walk 10 feet (QC): 5 Walk 50ft with 2 Turns (QC): 5 Walk 150 ft (QC): 5 PT Plan Problem List Problem List: Activity Tolerance, Functional Strength, Safety, Balance, Gait, Transfer, Bed Mobility Treatment/Plan Treatment Plan: Continue Plan of Care Treatment Plan: Bed Mobility, Education, Functional Activity Patricia, Functional Strength, Gait, Safety, Therapeutic Exercise, Transfers Treatment Duration: Feb 15, 2022 Frequency: 6 times per week Estimated Hrs Per Day: .25 hour per day Patient and/or Family Agrees t: Yes Time Time In: 816 Time Out: 828 DATE: Jan 27, 2022 Total Billed Treatment Time: 12 Total Billed Treatment 1 visit EVMod 12 min ISAMAR JADE PT Jan 27, 2022 08:56
--- NOTE | 2022-01-27 10:21 | Consultation-Cardiology ---
HPI-Cardiology Cardiology Consultation Date of Consultation 01/27/22 Date of Admission Time Seen by Provider: 08:30 Indication: peripheral edema, elevated BNP HPI Patient is an 86 year old female with history of chronic afib, HTN, HLP, CHF. Presented to the ER d/t increased weakness and frequent falling at home. Family reports patient has had a decline in her physical ability since being discharged from [facility] to home recently. Patient sleeping at bedside, will awaken to briefly answer questions. Complaining of generalized pain and weakness. Denies any chest pain. Home Medications & Allergies Allergies: Coded Allergies: No Known Drug Allergies (Unverified , 11/16/19) Home Medication List Reviewed: Yes VOJ-Wymojf-Pinsec Hx Patient Social History Marital Status: Smoking Status: Former Smoker Type Used: Cigarettes 2nd Hand Smoke Exposure: No Recent Hopitalizations: No Have you traveled recently?: No Alcohol Use?: No Immunizations Up To Date Tetanus Booster (TDap): Unknown Date of Pneumonia Vaccine: Aug 08, 2011 Date of Influenza Vaccine: Dec 08, 2019 Past Medical History Discussed below Family Medical History Significant Family History: Heart Disease, Hypertension Family History: Myocardial infarction 19 MOTHER Review of Systems-General Review of Systems Constitutional: see HPI, malaise, weakness EENTM: no symptoms reported Respiratory: no symptoms reported, other (chronically on oxygen 2L @ home) Cardiovascular: edema Gastrointestinal: no symptoms reported Genitourinary: frequency, incontinence : No Skin: other (drainage from left leg) All Other Systems Reviewed Negative Unless Noted: Yes Reviewed Test Results Reviewed Test Results Lab Laboratory Tests 01/26/22 15:51: Glucometer 157H 01/26/22 20:50: Glucometer 119H 01/26/22 23:29: Glucometer 106 01/27/22 04:55: Glucometer 114H 01/27/22 05:12: White Blood Count 8.3, Red Blood Count 4.00, Hemoglobin 9.5L, Hematocrit 33L, Mean Corpuscular Volume 81, Mean Corpuscular Hemoglobin 24L, Mean Corpuscular Hemoglobin Concent 29L, Red Cell Distribution Width 16.4H, Platelet Count 254, Mean Platelet Volume 10.4, Sodium Level 143, Potassium Level 3.3L, Chloride Level 103, Carbon Dioxide Level 28, Anion Gap 12, Blood Urea Nitrogen 13, Creatinine 0.84, Estimat Glomerular Filtration Rate 68, BUN/Creatinine Ratio 15, Glucose Level 110H, Calcium Level 9.0 01/27/22 08:13: Glucometer 117H 01/27/22 10:07: Glucometer 130H Physical Exam Physical Exam Vital Signs Vital Signs - First Documented 01/26/22 08:36 Temp 36.7 Pulse 81 Resp 16 B/P (MAP) 144/80 (101) Pulse Ox 96 O2 Delivery Nasal Cannula O2 Flow Rate 2.00 Capillary Refill : Less Than 3 Seconds Height, Weight, BMI Height: 5'8.00" Weight: 212lbs. 7.0oz. 96.509019ho; 40.21 BMI Method:Stated General Appearance: No Apparent Distress, Chronically ill, Obese, Other (sleepy) Eyes: Right Eye Other (small healing bruise inferior to right eye (from fall about 1-2 weeks ago)); Bilateral Eye Normal Inspection, Bilateral Eye PERRL, Bilateral Eye EOMI HEENT: PERRL/EOMI, Moist Mucous Membranes; No Scleral Icterus (L), No Scleral Icterus (R) Neck: Normal Inspection, Supple Respiratory: Lungs Clear, No Accessory Muscle Use, No Respiratory Distress Cardiovascular: Regular Rate, Rhythm, No JVD, No Murmur Gastrointestinal: Normal Bowel Sounds, Non Tender, Soft Rectal: Normal Exam, Heme Negative Stool Genital/Rectal: Other (last) Extremity: Normal Capillary Refill, Pedal Edema, Swelling (with weeping left worse than right) Neurologic/Psychiatric: Alert, Oriented x3, Normal Mood/Affect Skin: Normal Color, Erythema (bilateral lower extremities) A/P-Cardiology Admission Diagnosis CHF Chronic afib HTP HTN Assessment/Plan Acute on chronic CHF, LV systolic dysfunction. 2D Echo done 01/27/22 showing mild diffuse hypokinesia with EF 45%. Dilated right and left atrium, moderate MR, severe TR. PA 75-80mmHg. Cor pulmonale. Severe pulmonary hypertension with dilated right heart chambers. Significant deterioration compared to the previous echo from 2020. Currently on diuretics. We will continue with aggressive diuresis Restart beta-blockers Chronic permanent atrial fibrillation, twelve-lead EKG was done showing atrial fibrillation with right bundle branch block. Patient is not maintained on anticoagulation. I will discuss with Dr. Figueroa regarding initiating oral anticoagulation. HTP, PA 75-80mmHg, deterioration compare to the previous study. Patient has baseline pulmonary hypertension that became worse at this time. Probably secondary to hypoxemia Generalized weakness, lethargic, fatigue. Patient did not provide sufficient history, as she was extremely lethargic and sleepy. Currently on BiPAP. Acute respiratory failure, history of chronic respiratory insufficiency. Managed by medical team. HTN, restart home medications and continue to monitor HLP, maintained on statin as inpatient. History of CKD, continue to monitor renal function Anemia- baseline hemoglobin ~12 and down to 9.2 this AM. FOBT negative. Continue to monitor H/H. Not on OAC at this time. Generalized weakness and debility DM, management per medical services Peripheral neuropathy Chronic pain syndrome Thank you for allowing us to participate in the management of Ms. Zaidi. This is Lissette Miller PA-C, as a scribe for Dr. Barker. Patient was seen and evaluated with Lissette, I interviewed and examined the patient. She is lethargic, having swelling in her left lower extremity with erythema, possible cellulitis. Will consider initiating anticoagulation. Evaluate for DVT. Restarting Coreg, monitor blood pressure. I made few modification to the note and use the Italic font LISSETTE CARLIN Jan 27, 2022 10:20 RODOLFO BARKER MD Jan 27, 2022 11:48
[2022-01-27] MEDS ORDERED: INSU100I32 SQ (10:48)
[2022-01-27] MEDS ORDERED: HYDR-3820 PO (10:49)
[2022-01-27 11:07] VITALS: BP 152/89
--- NOTE | 2022-01-27 11:36 | Occ Therapy Progress Note ---
Therapy Progress Note OT orders received and chart reviewed. Pt on hold at this time per RN due to now being on, BiPAP/CPAP, and receiving an EKG. OT will attempt evaluation again next available time. QUINTEN BARNES OT Jan 27, 2022 11:36
--- NOTE | 2022-01-27 12:54 | Diagnostic Imaging Report ---
PROCEDURE: US Venous Lower Ext Shan. TECHNIQUE: Multiple real-time grayscale images were obtained over the lower extremities in various projections, bilaterally. Additional duplex Doppler and color Doppler images were also obtained. INDICATION: Pulmonary hypertension. There is no evidence of right or left lower extremity DVT. Both lower extremity deep venous systems demonstrate normal compressibility with normal response to augmentation and Valsalva. No fluid collection or mass is detected. IMPRESSION: No evidence of right or left lower extremity DVT. Dictated by: Dictated on workstation # [id number]
[2022-01-27 16:00] VITALS: BP 145/70
[2022-01-27 19:54] VITALS: BP 154/73
[2022-01-27] MEDS: MELATONIN 3 MG TABLET PO PRN (22:23)
[2022-01-27 23:19] VITALS: BP 137/60
[2022-01-28 04:00] VITALS: BP 142/65
[2022-01-28 05:48] LABS: HEMATOCRIT 33 % (35-52); HEMOGLOBIN 9.7 g/dL (11.5-16.0); MEAN CORPUSCULAR HEMOGLOBIN 24 pg (25-34); MEAN CORPUSCULAR HGB CONC 30 g/dL (32-36); MEAN CORPUSCULAR VOLUME 80 fL (80-99); PLATELET COUNT 307 10^3/uL (130-400); WHITE BLOOD COUNT 6.9 10^3/uL (4.3-11.0)
[2022-01-28 06:05] LABS: CALCIUM 9.3 MG/DL (8.5-10.1); CREATININE SERUM 0.96 MG/DL (0.60-1.30); POTASSIUM 3.4 MMOL/L (3.6-5.0)
[2022-01-28] MEDS: inSUlin ASPART (NovoLOG) 1 UNIT/0.01 ML (CHARGE PER UNIT) SC SCH ×4 (06:38→21:19)
--- NOTE | 2022-01-28 07:51 | Cardiology Progress Note ---
Subjective Date Seen by Provider: Jan 28, 2022 Time Seen by Provider: 07:49 Subjective/Events-last exam Patient was seen at bedside, more awake today, responding appropriate. Did not sleep well last night. Review of Systems General: No Chills, No Night Sweats; Fatigue, Malaise; No Appetite, No Other HEENT: No Head Aches, No Visual Changes, No Eye Pain, No Ear Pain, No Dysphasia, No Sinus Congestion, No Post Nasal Drip, No Sore Throat, No Other Pulmonary: Dyspnea; No Cough, No Pleuritic Chest Pain, No Other Cardiovascular: No: Chest Pain, Palpitations, Orthopnea, Paroxysmal Noc. Dyspnea, Edema, Lt Headedness, Other Objective-Cardiology Exam Last Set of Vital Signs Vital Signs 01/28/22 01/28/22 04:00 07:39 Temp 36.2 Pulse 75 Resp 20 B/P (MAP) 142/65 (90) Pulse Ox 94 O2 Delivery Nasal Cannula O2 Flow Rate 2.00 I&O Intake and Output 01/27/22 23:59 Intake Total 890 ml Output Total 4250 ml Balance -3360 ml Intake Oral 890 ml Output Urine Total 4250 ml # Bowel Movements 1 General: Alert, Oriented X3, Cooperative HEENT: Atraumatic, PERRLA Neck: Supple, No JVD Lungs: Normal Air Movement, Other (Bilateral rhonchi) Heart: Normal S1, Normal S2 Abdomen: Normal Bowel Sounds, Soft Extremities: No Clubbing, No Cyanosis, Other (Mild pedal edema, erythema on the left leg) Skin: No Rashes, No Breakdown Neuro: Normal Speech Psych/Mental Status: Mental Status NL, Mood NL Results Lab Laboratory Tests 01/28/22 05:35 A/P-Cardiology Admission Diagnosis CHF Chronic afib HTP HTN Assessment/Plan Acute on chronic CHF, LV systolic dysfunction. 2D Echo done 01/27/22 showing mild diffuse hypokinesia with EF 45%. Dilated right and left atrium, moderate MR, severe TR. PA 75-80mmHg. Cor pulmonale. Severe pulmonary hypertension with dilated right heart chambers. Significant deterioration compared to the previous echo from 2020. Responding well to diuretics. Monitor tolerance and response Chronic permanent atrial fibrillation, twelve-lead EKG was done showing atrial fibrillation with right bundle branch block. Tolerating Coreg well. [id number] score 4, yearly risk of stroke without oral anticoagulation is 4%. Patient has been taken off anticoagulation probably secondary to recurrent falling. Discussed with Dr. Figueroa and will restart Eliquis 5 mg twice daily HTP, PA 75-80mmHg, deterioration compare to the previous study. Patient has baseline pulmonary hypertension that became worse at this time. Probably secondary to hypoxemia Generalized weakness, lethargic, fatigue. Secondary to hypoxemia. Better now Status post acute respiratory failure, history of chronic respiratory insufficiency. Responded well to BiPAP. Currently feeling better, more awake. Responding better. Hypertension, tolerating Coreg well. Continue to monitor Hyperlipidemia, maintained on statin. Continue to monitor History of CKD, continue to monitor renal function Anemia- baseline hemoglobin ~12 and down to 9.2 this AM. FOBT negative. Continue to monitor H/H Generalized weakness and debility DM, management per medical services Peripheral neuropathy Chronic pain syndrome RODOLFO MAHONEY MD Jan 28, 2022 07:51
[2022-01-28] MEDS: FUROSEMIDE 40 MG/4 ML INJ (LASIX) IV SCH ×2 (07:55→19:58)
[2022-01-28] MEDS: APIXABAN 5 MG (ELIQUIS) TABLET PO SCH ×2 (08:17→19:58)
[2022-01-28 08:21] VITALS: BP 115/67
--- NOTE | 2022-01-28 08:50 | Progress Note ---
Subjective Subjective Date Seen by Provider: Jan 28, 2022 Time Seen by Provider: 08:40 Pt is more alert today - sitting up in chair at bedside. She reports that she is feeling better. Staff reports pt refused to wear BIPAP overnight. Pt complains of swelling of lower legs, but feels as if it is better than on admission. Review of Systems General: No Chills; Fatigue, Malaise HEENT: No Head Aches, No Visual Changes, No Sinus Congestion; Other (staff reports concern for possible aspiration with meals) Pulmonary: Dyspnea; No Cough Cardiovascular: Edema; No: Chest Pain, Palpitations Gastrointestinal: No: Nausea, Abdominal Pain, Diarrhea, Constipation Genitourinary: Other (last in place) Neurological: Weakness, Confusion All Other Systems Reviewed All Other Systems Reviewed: Yes Objective Exam Vital Signs Vital Signs Date Time Temp Pulse Resp B/P (MAP) Pulse Ox O2 Delivery O2 Flow Rate FiO2 01/28/22 08:21 36.8 81 20 115/67 (83) 99 High Flow N/C 3.00 01/28/22 07:39 75 01/28/22 04:00 36.2 81 20 142/65 (90) 94 Nasal Cannula 2.00 01/28/22 01:00 79 01/27/22 23:19 36.4 78 20 137/60 (85) 97 NIV CPAP 50.00 01/27/22 22:49 71 18 97 50.00 01/27/22 20:05 95 High Flow N/C 2.00 01/27/22 19:54 36.4 95 18 154/73 (100) 94 Nasal Cannula 2.00 01/27/22 19:00 102 01/27/22 18:41 66 16 95 2.00 01/27/22 16:00 36.7 63 20 145/70 (95) 99 NIV CPAP 50.00 01/27/22 14:54 57 15 99 50.00 01/27/22 13:00 76 01/27/22 11:07 36.3 61 17 152/89 (110) 99 NIV CPAP 50.00 01/27/22 09:35 65 17 98 50.00 I & O 01/28/22 06:59 Intake Total 1060 ml Output Total 3775 ml Balance -2715 ml General Appearance: Chronically ill, Obese Eyes: Bilateral Eye Normal Inspection, Bilateral Eye PERRL, Bilateral Eye EOMI HEENT: PERRL/EOMI, Moist Mucous Membranes; No Scleral Icterus (L), No Scleral Icterus (R) Neck: Normal Inspection, Supple Respiratory: Chest Non Tender, Lungs Clear, Normal Breath Sounds, No Accessory Muscle Use, No Respiratory Distress Cardiovascular: Regular Rate, Rhythm, Systolic Murmur Gastrointestinal: Normal Bowel Sounds, Non Tender, Soft Rectal: Normal Exam Genital/Rectal: Other (last) Extremity: Normal Capillary Refill, Pedal Edema, Swelling Neurologic/Psychiatric: Alert, Oriented x3, Normal Mood/Affect Skin: Normal Color, Erythema (bilateral lower extremities) Results Lab Laboratory Tests 01/27/22 10:07: Glucometer 130H 01/27/22 16:14: Glucometer 114H 01/27/22 20:04: Glucometer 246H 01/28/22 05:35: White Blood Count 6.9, Red Blood Count 4.09, Hemoglobin 9.7L, Hematocrit 33L, Mean Corpuscular Volume 80, Mean Corpuscular Hemoglobin 24L, Mean Corpuscular Hemoglobin Concent 30L, Red Cell Distribution Width 16.2H, Platelet Count 307, Mean Platelet Volume 10.0, Sodium Level 141, Potassium Level 3.4L, Chloride Level 100, Carbon Dioxide Level 27, Anion Gap 14, Blood Urea Nitrogen 17, Creatinine 0.96, Estimat Glomerular Filtration Rate 58, BUN/Creatinine Ratio 18, Glucose Level 157H, Calcium Level 9.3 Assessment/Plan Assessment/Plan Admission Dx ACUTE RESPIRATORY FAILURE 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 CHRONIC PAIN SYNDROME CHRONIC OPIOID USE HYPERTENSION CHRONIC ATRIAL FIBRILLATION DIABETES MELLITUS TYPE 2 HYPERLIPIDEMIA PERIPHERAL NEUROPATHY Assessment and Plan ACUTE RESPIRATORY FAILURE 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 MAHONEY WAS PLACED YESTERDAY CHRONIC PAIN SYNDROME WITH CHRONIC OPIOID USE - RESTART HOME REGIMEN - STARTED THERAPY HYPERTENSION - RESUME HOME REGIMEN DIABETES MELLITUS TYPE 2 - RESTART HOME INSULIN REGIMEN HYPERLIPIDEMIA - RESTART STATIN THERAPY PERIPHERAL NEUROPATHY - RESTART HOME REGIMEN ONCE RECONCILED AND PT MORE ALERT ANTICIPATE SHE WILL NEED LONG-TERM PLACEMENT FOR REHAB ON DISCHARGE AND CUSTODIAL REGIMEN OF CARE. 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
--- NOTE | 2022-01-28 09:13 | Physical Therapy Daily Note ---
PT Daily Note-Current Subjective Patient is more alert on this date. Agrees to PT. Pain Section J - Health Conditions 1. Rarely or not at all 2. Occasionally 3. Frequently 4. Almost constantly 8. Unable to answer Pain Effect on Sleep: 1 Pain Interference with Therapy: 1 Pain Interference w/Day-to-Day: 1 Mental Status Patient Orientation: Person, Time, Situation Attachments: Oxygen (2L), [place] Catheter Transfers SCALE: Activities may be completed with or without assistive devices. 4-Ivhpjkrtrv-mbqcmzf completes the activity by him/herself with no assistance from a helper. 5-Set-up or Clean-up Assistance-helper sets up or cleans up; patient completes activity. [place] assists only prior to or following the activity. 4-Supervision or Touching Assistance-helper provides verbal cues and/or touching/steadying and/or contact guard assistance as patient completes activity. Assistance may be provided throughout the activity or intermittently. 3-Partial/Moderate Assistance-helper does LESS THAN HALF the effort. [place] lifts, holds or supports trunk or limbs, but provides less than half the effort. 2-Substantial/Maximal Assistance-helper does MORE THAN HALF the effort. [place] lifts or holds trunk or limbs and provides more than half the effort. 4-Ljuogtaeq-yabhbq does ALL the effort. Patient does none of the effort to complete the activity. Or, the assistance of 2 or more helpers is required for the patient to complete the activity. If activity was not attempted, code reason: 7-Patient Refused. 9-Not Applicable-not attempted and the patient did not perform the activity before the current illness, exacerbation or injury. 10-Not Attempted due to Environmental Limitations-(lack of equipment, weather restraints, etc.). 88-Not Attempted due to Medical Conditions or Safety Concerns. Lying to Sitting/Side of Bed(Q: 4 Sit to Stand (QC): 4 Chair/Dyd-ru-Mekdh Xfer(QC): 4 Toilet Transfer (QC): 4 Gait Training Distance: 200' Walk 10 feet (QC): 4 Walk 50 ft with 2 Turns(QC): 4 Walk 150 ft (QC): 4 Gait Assistive Device: FWW slow, steady gait sequence with no deviation Assessment Patient much improved on this date. PT to continue to increase activity as tolerated by patient. PT Usp Goals Linseed Oil Order Filler Goals PT Usp Goals Time Frame: Feb 15, 2022 Roll Left & Right (QC): 6 Sit to Lying (QC): 6 Lying-Sitting on Side/Bed(QC): 6 Sit to Stand (QC): 6 Chair/Tat-fd-Attya Xfer(QC): 6 Toilet Transfer (QC): 6 Walk 10 feet (QC): 5 Walk 50ft with 2 Turns (QC): 5 Walk 150 ft (QC): 5 PT Plan Treatment/Plan Treatment Plan: Continue Plan of Care Treatment Plan: Bed Mobility, Education, Functional Activity Patricia, Functional Strength, Gait, Safety, Therapeutic Exercise, Transfers Treatment Duration: Feb 15, 2022 Frequency: 6 times per week Estimated Hrs Per Day: .25 hour per day Patient and/or Family Agrees t: Yes Time Time In: 755 Time Out: 807 DATE: Jan 28, 2022 Total Billed Treatment Time: 12 Total Billed Treatment 1 visit FA 12 min ISAMAR JADE PT Jan 28, 2022 09:13
--- NOTE | 2022-01-28 11:23 | Occupational Therapy Eval ---
OT Evaluation-General/PLF Medical Diagnosis Admission Date Jan 26, 2022 at 10:50 Medical Diagnosis: anasarca/anemia/right shoulder injury/weakness Onset Date: Jan 26, 2022 Therapy Diagnosis Therapy Diagnosis: reduced adl status Height/Weight Height (Feet): 5 Height (Inches): 8.00 Weight (Pounds): 212 Weight (Ounces): 7.0 Precautions Precautions/Isolations: Fall Prevention, Standard Precautions Referral Physician: Jean Referral Reason: Evaluation/Treatment Medical History Pertinent Medical History: Atrial Fib, Arthritis, DM, HTN, Neuropathy, OA, Renal Insufficiency, Smoking Current History pt presented to hospital following a fall and c/o R shoulder pain. Per report, pt has had 4 falls within the last month; imaging reveals no acute abnormalities. Per patient, she lives with her daughter in a single story home. She states she was indep with adls and her daughter does the iadls. She is able to cook her own meals when her daughter is away at work. She uses a walker at baseline. Social History Home: Single Level Current Living Status: Children (daughter) ADL-Prior Level of Function SCALE: Activities may be completed with or without assistive devices. 5-Gzqjukzqom-yyptvzg completes the activity by him/herself with no assistance from a helper. 5-Set-up or Clean-up Assistance-helper sets up or cleans up; patient completes activity. [place] assists only prior to or following the activity. 4-Supervision or Touching Assistance-helper provides verbal cues and/or touching/steadying and/or contact guard assistance as patient completes activity. Assistance may be provided throughout the activity or intermittently. 3-Partial/Moderate Assistance-helper does LESS THAN HALF the effort. [place] lif ts, holds or supports trunk or limbs, but provides less than half the effort. 2-Substantial/Maximal Assistance-helper does MORE THAN HALF the effort. [place] lifts or holds trunk or limbs and provides more than half the effort. 2-Mnofljbmd-zjnwyi does ALL the effort. Patient does none of the effort to complete the activity. Or, the assistance of 2 or more helpers is required for the patient to complete the activity. If activity was not attempted, code reason: 7-Patient Refused. 9-Not Applicable-not attempted and the patient did not perform the activity before the current illness, exacerbation or injury. 10-Not Attempted due to Environmental Limitations-(lack of equipment, weather restraints, etc.). 88-Not Attempted due to Medical Conditions or Safety Concerns. Self Care: Independent Functional Cognition: Needed Some Help DME/Equipment: Bath Bench, Tub/Shower OT Current Status Subjective Pt states she is "upset" due to being notified that she will discharge to a facility (rn long term care-possibly assisted living). Appearance Pt returned to sitting in recliner, all needs within reach at OT departure. Mental Status/Objective Patient Orientation: Person, Place, Situation Attachments: IV, Oxygen Current Glasses/Contacts: Yes Hand Dominance: Right Upper Extremity ROM Pt reports mild soreness in R shoulder, still able to complete full range with extra time. 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 Mod a to don bilateral socks as pt requires assist to initiate socks over toes, she is then able to well puller head heel. Sit<>stand: SBA, extra time. She ambulated short distance within room with SBA- CGA and use of walker. She was able to demonstrate ability to alternate single UE support from walker in to order to manage clothing over hips. She reports fatigue after minimal activity. Education OT Patient Education: Energy conservation, Purpose of tx/functional activities, Safety issues, Transfer techniques Teaching Recipient: Patient Teaching Methods: Discussion Response to Teaching: Verbalize Understanding, Return Demonstration, Reinforcement Needed OT Retirement Goals Retirement Goals Time Frame: Feb 05, 2022 Oral Hygiene (QC): 5 Toileting Hygiene (QC): 4 Shower/Bathe Self (QC): 4 Upper Body Dressing (QC): 4 Lower Body Dressing (QC): 4 On/Off Footwear (QC): 4 Additional Goals: 1-Demonstrate ADL Tasks, 2-Verbalize Understanding, 3- ImproveStrength/Patricia 1=Demonstrate adherence to instructed precautions during ADL tasks. 2=Patient will verbalize/demonstrate understanding of assistive devices/modifications for ADL. 3=Patient will improve strength/tolerance for activity to enable patient to perform ADL's. OT Education/Plan Problem List/Assessment Assessment: Decreased Activ Tolerance, Decreased Safety Aware, Decreased UE Strength, Edema, Impaired Funct Balance, Impaired I ADL's, Impaired Self-Care Skills Discharge Recommendations Plan/Recommendations: Continue POC Therapy Discharge Recommendati: Assisted Living, Post Acute OT Treatment Plan/Plan of Care Treatment,Training & Education: Yes Patient would benefit from OT for education, treatment and training to promote independence in ADL's, mobility, safety and/or upper extremity function for AD L's. Plan of Care: ADL Retraining, Functional Mobility, UE Funct Exercise/Act Treatment Duration: Feb 05, 2022 Frequency: 3 times per week (3-5x/week) Estimated Hrs Per Day: .25 hour per day Rehab Potential: Guarded Time Start Time: 11:04 Stop Time: 11:16 DATE: Jan 28, 2022 Total Time Billed (hr/min): 12 Billed Treatment Time 1 visit Becki Peter OT Jan 28, 2022 11:23
[2022-01-28 11:26] VITALS: BP 122/71
[2022-01-28 15:43] VITALS: BP 135/66
[2022-01-28 19:47] VITALS: BP 129/63
[2022-01-28] MEDS: MELATONIN 3 MG TABLET PO PRN (19:58)
[2022-01-28 23:23] VITALS: BP 134/74
[2022-01-29] VITALS (7 sets, daily range): BP systolic 122–138; BP diastolic 68–76
[2022-01-29 06:07] LABS: HEMATOCRIT 30 % (35-52); HEMOGLOBIN 8.8 g/dL (11.5-16.0); MEAN CORPUSCULAR HEMOGLOBIN 24 pg (25-34); MEAN CORPUSCULAR HGB CONC 29 g/dL (32-36); MEAN CORPUSCULAR VOLUME 81 fL (80-99); MEAN PLATELET VOLUME 10.3 fL (9.0-12.2); PLATELET COUNT 265 10^3/uL (130-400); WHITE BLOOD COUNT 6.1 10^3/uL (4.3-11.0)
[2022-01-29 06:16] LABS: POTASSIUM 3.3 MMOL/L (3.6-5.0)
[2022-01-29 06:17] LABS: CALCIUM 9.2 MG/DL (8.5-10.1)
[2022-01-29] MEDS: inSUlin ASPART (NovoLOG) 1 UNIT/0.01 ML (CHARGE PER UNIT) SC SCH ×4 (06:20→19:46)
[2022-01-29 06:22] LABS: CREATININE SERUM 1.03 MG/DL (0.60-1.30)
[2022-01-29] MEDS: FUROSEMIDE 40 MG/4 ML INJ (LASIX) IV SCH ×2 (08:46→19:46)
[2022-01-29] MEDS: DOCUSATE SODIUM 100 MG (COLACE) CAP PO SCH ×2 (08:46→19:45)
[2022-01-29] MEDS: GABAPENTIN 100 MG (NEURONTIN) CAP PO SCH ×3 (08:46→19:45)
[2022-01-29] MEDS: APIXABAN 5 MG (ELIQUIS) TABLET PO SCH ×2 (08:46→19:45)
--- NOTE | 2022-01-29 10:12 | Physical Therapy Daily Note ---
PT Daily Note-Current Subjective Patient in bed pre-tx, reports no pain, agrees to PT. Patient stated at end of treatment that she wants to get out of the hospital, but no one wants her. Pain Section J - Health Conditions 1. Rarely or not at all 2. Occasionally 3. Frequently 4. Almost constantly 8. Unable to answer Pain Effect on Sleep: 1 Pain Interference with Therapy: 1 Pain Interference w/Day-to-Day: 1 Appearance Patient in recliner post-tx with nurse call, phone, tray, all needs met. Mental Status Patient Orientation: Person, Place, Situation Attachments: Oxygen, [place] Catheter Transfers SCALE: Activities may be completed with or without assistive devices. 8-Pinelpslpu-vwwbujp completes the activity by him/herself with no assistance from a helper. 5-Set-up or Clean-up Assistance-helper sets up or cleans up; patient completes activity. [place] assists only prior to or following the activity. 4-Supervision or Touching Assistance-helper provides verbal cues and/or touching/steadying and/or contact guard assistance as patient completes activity. Assistance may be provided throughout the activity or intermittently. 3-Partial/Moderate Assistance-helper does LESS THAN HALF the effort. [place] lifts, holds or supports trunk or limbs, but provides less than half the effort. 2-Substantial/Maximal Assistance-helper does MORE THAN HALF the effort. [place] lifts or holds trunk or limbs and provides more than half the effort. 3-Sxpshykjo-royyng does ALL the effort. Patient does none of the effort to complete the activity. Or, the assistance of 2 or more helpers is required for the patient to complete the activity. If activity was not attempted, code reason: 7-Patient Refused. 9-Not Applicable-not attempted and the patient did not perform the activity before the current illness, exacerbation or injury. 10-Not Attempted due to Environmental Limitations-(lack of equipment, weather restraints, etc.). 88-Not Attempted due to Medical Conditions or Safety Concerns. Roll Left & Right (QC): 4 Sit to Lying (QC): 4 Lying to Sitting/Side of Bed(Q: 4 Sit to Stand (QC): 4 Chair/Jtu-ws-Zsytq Xfer(QC): 4 SBA with bed mobility and transfers Weight Bearing Right Lower Extremity: Right Full Weight Bearing Left Lower Extremity: Left Full Weight Bearing Gait Training Does the Patient Walk?: Yes Distance: 250' Walk 10 feet (QC): 4 Walk 50 ft with 2 Turns(QC): 4 Walk 150 ft (QC): 4 Gait Persons Needed: 1 Gait Assistive Device: FWW SBA with ambulation, patient walks with slow gait speed and decent upright posture. Exercises Seated Therapy Exercises: Ankle pumps, Long arc quads, Hip flexion, Hip abd/add (AROM) Seated Reps: 20 Treatments LE Strengthening, Ambulation Assessment Current Status: Fair Progress Patient demonstrated good endurance without needing a break while walking and did exercises without being asked. Patient shows good drive to get better. PT Mercury Cracking Tester Goals Custodial Goals PT Mercury Cracking Tester Goals Time Frame: Feb 15, 2022 Roll Left & Right (QC): 6 Sit to Lying (QC): 6 Lying-Sitting on Side/Bed(QC): 6 Sit to Stand (QC): 6 Chair/Ywy-mo-Armzn Xfer(QC): 6 Toilet Transfer (QC): 6 Walk 10 feet (QC): 5 Walk 50ft with 2 Turns (QC): 5 Walk 150 ft (QC): 5 PT Plan Problem List Problem List: Activity Tolerance, Functional Strength, Safety, Balance, Gait, Transfer, Bed Mobility, ROM Treatment/Plan Treatment Plan: Continue Plan of Care Treatment Plan: Bed Mobility, Education, Functional Activity Patricia, Functional Strength, Gait, Safety, Therapeutic Exercise, Transfers Treatment Duration: Feb 15, 2022 Frequency: 6 times per week Estimated Hrs Per Day: .25 hour per day Patient and/or Family Agrees t: Yes Safety Risks/Education Patient Education: Gait Training, Transfer Techniques, Correct Positioning, Safety Issues Teaching Recipient: Patient Teaching Methods: Demonstration, Discussion Response to Teaching: Reinforcement Needed Time Time In: 927 Time Out: 946 DATE: Jan 29, 2022 Total Billed Treatment Time: 19 Total Billed Treatment 1 visit FA 19' WOO MCGILL PT Jan 29, 2022 10:12
--- NOTE | 2022-01-29 11:07 | Occupational Ther Daily Note ---
OT Current Status-Daily Note Subjective Pt verbalizes "this shower feels great." Appearance Pt left sitting in recliner, AMMONIA DISTILLER in room at OT departure. Mental Status/Objective Patient Orientation: Person, Place, Situation Attachments: IV ADL-Treatment Therapy Code Descriptions/Definitions Functional [place] Measure: 0=Not Assessed/NA 4=Minimal Assistance 1=Total Assistance 5=Supervision or Setup 2=Maximal Assistance 6=Modified [place] 3=Moderate Assistance 7=Complete IndependenceSCALE: Activities may be completed with or without assistive devices. 5-Bxmuepjhjv-pecvjpg completes the activity by him/herself with no assistance from a helper. 5-Set-up or Clean-up Assistance-helper sets up or cleans up; patient completes activity. [place] assists only prior to or following the activity. 4-Supervision or Touching Assistance-helper provides verbal cues and/or touching/steadying and/or contact guard assistance as patient completes activity. Assistance may be provided throughout the activity or intermittently. 3-Partial/Moderate Assistance-helper does LESS THAN HALF the effort. [place] lifts, holds or supports trunk or limbs, but provides less than half the effort. 2-Substantial/Maximal Assistance-helper does MORE THAN HALF the effort. [place] lifts or holds trunk or limbs and provides more than half the effort. 8-Ridibfwxh-vjimdu does ALL the effort. Patient does none of the effort to complete the activity. Or, the assistance of 2 or more helpers is required for the patient to complete the activity. If activity was not attempted, code reason: 7-Patient Refused. 9-Not Applicable-not attempted and the patient did not perform the activity before the current illness, exacerbation or injury. 10-Not Attempted due to Environmental Limitations-(lack of equipment, weather restraints, etc.). 88-Not Attempted due to Medical Conditions or Safety Concerns. Shower/Bathe Self (QC): 3 Lower Body Dressing (QC): 3 On/Off Footwear: 3 Toileting Hygiene (QC): 1 (last catheter) Pt transferring into shower with AMMONIA DISTILLER at OT arrival. OT took over activity from nursing aid. Pt sat for majority of task, only standing briefly to wash lilliana area/buttocks. Close supervision for safety when standing, no unsteadiness observed. Min a needed to wash buttocks due to poor reach. Assist also for washing bilateral feet and under abdominal pannus for thoroughness only. Mod verbal cues required to initiate washing ~50% of body parts. Mod a to don bilateral socks as pt has difficulty initiating socks over toes. New gown donned. Pt ambulated back to recliner with SBA and use of walker. AMMONIA DISTILLER in room to assist pt with telemetry and combing hair. Education OT Patient Education: Correct positioning, Energy conservation, Modified ADL techniques, Progress toward Goal/Update tx plan, Purpose of tx/functional activities, Safety issues, Transfer techniques Teaching Recipient: Patient Teaching Methods: Demonstration, Discussion Response to Teaching: Verbalize Understanding, Return Demonstration, Reinforcement Needed OT Product Management Consultant Goals Product Management Consultant Goals Time Frame: Feb 05, 2022 Oral Hygiene (QC): 5 Toileting Hygiene (QC): 4 Shower/Bathe Self (QC): 4 Upper Body Dressing (QC): 4 Lower Body Dressing (QC): 4 On/Off Footwear (QC): 4 Additional Goals: 1-Demonstrate ADL Tasks, 2-Verbalize Understanding, 3- ImproveStrength/Patricia 1=Demonstrate adherence to instructed precautions during ADL tasks. 2=Patient will verbalize/demonstrate understanding of assistive devices/modif ications for ADL. 3=Patient will improve strength/tolerance for activity to enable patient to perform ADL's. OT Education/Plan Problem List/Assessment Assessment: Decreased Activ Tolerance, Decreased UE Strength, Edema, Impaired Funct Balance, Impaired Self-Care Skills Discharge Recommendations Plan/Recommendations: Continue POC Therapy Discharge Recommendati: Post Acute OT Treatment Plan/Plan of Care Treatment,Training & Education: Yes Patient would benefit from OT for education, treatment and training to promote independence in ADL's, mobility, safety and/or upper extremity function for ADL's. Plan of Care: ADL Retraining, Functional Mobility, UE Funct Exercise/Act Treatment Duration: Feb 05, 2022 Frequency: 3 times per week (3-5x/week) Estimated Hrs Per Day: .25 hour per day Rehab Potential: Guarded Time Start Time: 10:35 Stop Time: 10:58 DATE: Jan 29, 2022 Total Time Billed (hr/min): 23 Billed Treatment Time 1 visit ADL x2 Becki Jackson OT Jan 29, 2022 11:07
[2022-01-29] MEDS: PANTOPRAZOLE 20 MG TABLET (PROTONIX) PO SCH (11:13)
--- NOTE | 2022-01-29 11:55 | Progress Note - Cardiology ---
Cardiology SOAP Progress Note Subjective: Sitting up in recliner at the bedside States she continues to feel SOB, but feels it is unchanged from the day before Feels LE swelling is better today No c/o CP or palpitations Gen weakness Objective: I&O/Vital Signs 01/29/22 01/29/22 01/29/22 01/29/22 01:00 03:16 07:00 07:17 Temp 36.7 36.2 Pulse 64 74 79 63 Resp 18 22 B/P (MAP) 138/74 (95) 132/76 (94) Pulse Ox 97 98 O2 Delivery High Flow N/C High Flow N/C O2 Flow Rate 3.00 3.00 01/29/22 01/29/22 08:30 11:12 Temp 35.7 Pulse 75 Resp 20 B/P (MAP) 122/68 (86) Pulse Ox 97 O2 Delivery Nasal Cannula High Flow N/C O2 Flow Rate 3.00 4.00 01/29/22 00:00 Intake Total 1184 ml Output Total 2150 ml Balance -966 ml Weight (Pounds): 212 Weight (Ounces): 7.0 Weight (Calculated Kilograms): 96.314806 Constitutional: AAO x 3, well-developed, well-nourished Respiratory: No accessory muscle use, No respiratory distress; chest expansion is symmetric, chest is bilaterally symmetric, other (diminished bases bilat) Cardiovascular: irregularly irregular; No JVD; S1 and S2 Gastrointestional: No tender; soft, round, audible bowel sounds Extremities: other (mod bilat LE swelling - improving) Neurologic/Psychiatric: grossly intact (moves all extremities) Skin: other (LLE with redness and warmth) Results/Procedures: Labs Laboratory Tests 01/28/22 15:46: Glucometer 207H 01/28/22 20:27: Glucometer 242H 01/29/22 05:46: Glucometer 189H 01/29/22 05:56: White Blood Count 6.1, Red Blood Count 3.72L, Hemoglobin 8.8L, Hematocrit 30L, Mean Corpuscular Volume 81, Mean Corpuscular Hemoglobin 24L, Mean Corpuscular Hemoglobin Concent 29L, Red Cell Distribution Width 16.2H, Platelet Count 265, Mean Platelet Volume 10.3, Sodium Level 140, Potassium Level 3.3L, Chloride Level 102, Carbon Dioxide Level 27, Anion Gap 11, Blood Urea Nitrogen 19H, Creatinine 1.03, Estimat Glomerular Filtration Rate 54, BUN/Creatinine Ratio 18, Glucose Level 201H, Calcium Level 9.2 01/29/22 11:06: Glucometer 235H Laboratory Tests 01/28/22 05:35 01/29/22 05:56 A/P: Assessment: Acute on chronic CHF - 2D Echo done 01/27/[address] Barker showing mild diffuse hypokinesia with EF 45%. Dilated right and left atrium, moderate MR, severe TR. PA 75-80mmHg. Cor pulmonale. Severe pulmonary hypertension with dilated right heart chambers. Significant deterioration compared to the previous echo from 2020. Chronic permanent atrial fibrillation - twelve-lead EKG was done showing atrial fibrillation with right bundle branch block. - [id number] score 4, yearly risk of stroke without oral anticoagulation is 4%. - Patient had been taken off anticoagulation probably secondary to recurrent falling. Discussed with Dr. Figueroa and Eliquis 5mg BID has been restarted Pulmonary HTN - likely d/t obesity hypoventilation syndrome/GER Generalized weakness - continue PT/OT Status post acute respiratory failure, history of chronic respiratory in sufficiency. - Bi-pap tx Hypertension Hyperlipidemia - maintained on statin History of CKD - monitor Anemia - baseline hemoglobin ~12 - FOBT negative. - Management per medical services DM - management per medical services Peripheral neuropathy Chronic pain syndrome Plan: Continue current medication regimen Hypokalemia d/t aggressive diuresis - replace electrolytes Continue current regimen - change lasix to oral starting tomorrow Monitor lab closely We have reviewed Dr. Barker's notes SB REDDY Jan 29, 2022 11:55
[2022-01-29] MEDS ORDERED: KCL 20 MEQ TAB (K-DUR) PO NR (12:00)
--- NOTE | 2022-01-29 16:56 | Progress Note - Cardiology ---
Cardiology SOAP Progress Note Subjective: Somnolent but awakens No cp or palp or syncope or shortness of breath or n/v reported Objective: I&O/Vital Signs 01/29/22 01/29/22 01/29/22 01/29/22 07:00 07:17 08:30 11:12 Temp 36.2 35.7 Pulse 79 63 75 Resp 22 20 B/P (MAP) 132/76 (94) 122/68 (86) Pulse Ox 98 97 O2 Delivery High Flow N/C Nasal Cannula High Flow N/C O2 Flow Rate 3.00 3.00 4.00 01/29/22 13:00 Pulse 67 01/29/22 00:00 Intake Total 1184 ml Output Total 2150 ml Balance -966 ml Weight (Pounds): 212 Weight (Ounces): 7.0 Weight (Calculated Kilograms): 96.813639 Constitutional: AAO x 3, well-developed, well-nourished Respiratory: No accessory muscle use, No respiratory distress; chest expansion is symmetric, chest is bilaterally symmetric, other (diminished bases bilat) Cardiovascular: irregularly irregular; No JVD; S1 and S2 Gastrointestional: No tender; soft, round, audible bowel sounds Extremities: other (mod bilat LE swelling - improving) Neurologic/Psychiatric: grossly intact (moves all extremities) Skin: other (LLE with redness and warmth) Results/Procedures: Labs Laboratory Tests 01/28/22 20:27: Glucometer 242H 01/29/22 05:46: Glucometer 189H 01/29/22 05:56: White Blood Count 6.1, Red Blood Count 3.72L, Hemoglobin 8.8L, Hematocrit 30L, Mean Corpuscular Volume 81, Mean Corpuscular Hemoglobin 24L, Mean Corpuscular Hemoglobin Concent 29L, Red Cell Distribution Width 16.2H, Platelet Count 265, Mean Platelet Volume 10.3, Sodium Level 140, Potassium Level 3.3L, Chloride Level 102, Carbon Dioxide Level 27, Anion Gap 11, Blood Urea Nitrogen 19H, Creatinine 1.03, Estimat Glomerular Filtration Rate 54, BUN/Creatinine Ratio 18, Glucose Level 201H, Calcium Level 9.2, Magnesium Level 1.8 01/29/22 11:06: Glucometer 235H 01/29/22 16:24: Glucometer 239H Laboratory Tests 01/28/22 05:35 01/29/22 05:56 A/P: Assessment: Acute on chronic CHF - 2D Echo done 01/27/[address] Barker showing mild diffuse hypokinesia with EF 45%. Dilated right and left atrium, moderate MR, severe TR. PA 75-80mmHg. Cor pulmonale. Severe pulmonary hypertension with dilated right heart chambers. Significant deterioration compared to the previous echo from 2020. Chronic permanent atrial fibrillation - twelve-lead EKG was done showing atrial fibrillation with right bundle branch block. - [id number] score 4, yearly risk of stroke without oral anticoagulation is 4%. - Patient had been taken off anticoagulation probably secondary to recurrent falling. Discussed with Dr. Figueroa and Eliquis 5mg BID has been restarted Pulmonary HTN - likely d/t obesity hypoventilation syndrome/GER Generalized weakness - continue PT/OT Status post acute respiratory failure, history of chronic respiratory insufficiency. - Bi-pap tx Hypertension Hyperlipidemia - maintained on statin History of CKD - monitor Anemia - baseline hemoglobin ~12 - FOBT negative. - Management per medical services DM - management per medical services Peripheral neuropathy Chronic pain syndrome Plan: Continue current medication regimen Hypokalemia d/t aggressive diuresis - replace electrolytes Continue current regimen - change lasix to oral starting tomorrow Monitor lab closely We have reviewed Dr. Barker's notes HARITHA ESPARZA MD FACP FAC CCDS Jan 29, 2022 16:56
[2022-01-29] MEDS: KCL 20 MEQ TAB (K-DUR) PO SCH (17:55)
--- NOTE | 2022-01-29 18:37 | Progress Note ---
Subjective Subjective Date Seen by Provider: Jan 29, 2022 Time Seen by Provider: 08:20 Pt is more alert today - sitting up in chair at bedside. She reports that she is feeling better. She continues to complain of shortness of breath Review of Systems General: No Chills; Fatigue, Malaise HEENT: No Head Aches, No Visual Changes, No Sinus Congestion; Other (staff reports concern for possible aspiration with meals) Pulmonary: Dyspnea; No Cough Cardiovascular: Edema; No: Chest Pain, Palpitations Gastrointestinal: No: Nausea, Abdominal Pain, Diarrhea, Constipation Genitourinary: Other (last in place) Neurological: Weakness, Confusion All Other Systems Reviewed All Other Systems Reviewed: Yes Objective Exam Vital Signs Vital Signs Date Time Temp Pulse Resp B/P (MAP) Pulse Ox O2 Delivery O2 Flow Rate FiO2 01/29/22 16:00 36.1 72 16 123/68 (86) 97 High Flow N/C 3.00 01/29/22 13:00 67 01/29/22 11:12 35.7 75 20 122/68 (86) 97 High Flow N/C 4.00 01/29/22 08:30 Nasal Cannula 3.00 01/29/22 07:17 36.2 63 22 132/76 (94) 98 High Flow N/C 3.00 01/29/22 07:00 79 01/29/22 03:16 36.7 74 18 138/74 (95) 97 High Flow N/C 3.00 01/29/22 01:00 64 01/28/22 23:23 36.9 78 18 134/74 (94) 97 High Flow N/C 3.00 3.00 01/28/22 20:00 91 Nasal Cannula 2.00 01/28/22 19:47 36.3 73 18 129/63 (85) 96 Nasal Cannula 3.00 01/28/22 19:00 84 I & O 01/29/22 06:59 Intake Total 1334 ml Output Total 2500 ml Balance -1166 ml General Appearance: Chronically ill, Obese Eyes: Bilateral Eye Normal Inspection, Bilateral Eye PERRL, Bilateral Eye EOMI HEENT: PERRL/EOMI, Moist Mucous Membranes; No Scleral Icterus (L), No Scleral Icterus (R) Neck: Normal Inspection, Supple Respiratory: Chest Non Tender, Lungs Clear, Normal Breath Sounds, No Accessory Muscle Use, No Respiratory Distress Cardiovascular: Regular Rate, Rhythm, Systolic Murmur Gastrointestinal: Normal Bowel Sounds, Non Tender, Soft Rectal: Normal Exam Genital/Rectal: Other (last) Extremity: Normal Capillary Refill, Pedal Edema, Swelling Neurologic/Psychiatric: Alert, Oriented x3, Normal Mood/Affect Skin: Normal Color, Erythema (bilateral lower extremities) Results Lab Laboratory Tests 01/28/22 20:27: Glucometer 242H 01/29/22 05:46: Glucometer 189H 01/29/22 05:56: White Blood Count 6.1, Red Blood Count 3.72L, Hemoglobin 8.8L, Hematocrit 30L, Mean Corpuscular Volume 81, Mean Corpuscular Hemoglobin 24L, Mean Corpuscular Hemoglobin Concent 29L, Red Cell Distribution Width 16.2H, Platelet Count 265, M demarcus Platelet Volume 10.3, Sodium Level 140, Potassium Level 3.3L, Chloride Level 102, Carbon Dioxide Level 27, Anion Gap 11, Blood Urea Nitrogen 19H, Creatinine 1.03, Estimat Glomerular Filtration Rate 54, BUN/Creatinine Ratio 18, Glucose Level 201H, Calcium Level 9.2, Magnesium Level 1.8 01/29/22 11:06: Glucometer 235H 01/29/22 16:24: Glucometer 239H Assessment/Plan Assessment/Plan Admission Dx ACUTE RESPIRATORY FAILURE 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 CHRONIC PAIN SYNDROME CHRONIC OPIOID USE HYPERTENSION CHRONIC ATRIAL FIBRILLATION DIABETES MELLITUS TYPE 2 HYPERLIPIDEMIA PERIPHERAL NEUROPATHY Assessment and Plan ACUTE RESPIRATORY FAILURE 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 MAHONEY WAS PLACED CHRONIC PAIN SYNDROME WITH CHRONIC OPIOID USE - RESTARTED HOME REGIMEN - STARTED THERAPY HYPERTENSION - RESUMED HOME REGIMEN DIABETES MELLITUS TYPE 2 - RESTARTED HOME INSULIN REGIMEN HYPERLIPIDEMIA - RESTARTED STATIN THERAPY PERIPHERAL NEUROPATHY - RESTARTED HOME REGIMEN ONCE RECONCILED AND PT MORE ALERT ANTICIPATE SHE WILL NEED SNF PLACEMENT FOR REHAB ON DISCHARGE AND CORRECTION REGIMEN OF CARE. SHE IS MORE ALERT, IS ABLE TO PARTICIPATE IN THERAPY -BUT SHE IS NOT AT BASELINE OR CLOSE TO BASELINE. SHE WILL NEED MORE HELP/THERAPY THAN ABLE TO GET/PARTICIPATE IN AT HOME WITH HOME HEALTH SERVICES. SHE NEEDS MONITORING OF HER MEDICATIONS, HER WEIGHT NEEDS CLOSELY MONITORED, HER DIETARY INTAKE WILL NEED TO BE MONITORED AND PREVENTED FROM HAVING EXCESSIVE SALT INTAKE. SHE WILL NEED HER VITALS CLOSELY MONITORED WELL - NONE OF WHICH IS ABLE TO BE DONE AT HOME. Admission Dx ACUTE RESPIRATORY FAILURE 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 CHRONIC PAIN SYNDROME CHRONIC OPIOID USE HYPERTENSION CHRONIC ATRIAL FIBRILLATION DIABETES MELLITUS TYPE 2 HYPERLIPIDEMIA PERIPHERAL NEUROPATHY Clinical Quality Measures Admission Status Admission Dx ACUTE RESPIRATORY FAILURE 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 CHRONIC PAIN SYNDROME CHRONIC OPIOID USE HYPERTENSION CHRONIC ATRIAL FIBRILLATION DIABETES MELLITUS TYPE 2 HYPERLIPIDEMIA PERIPHERAL NEUROPATHY DEANGELO FOSTER MD Jan 29, 2022 18:37
[2022-01-29] MEDS: AtorvaSTATin TABLET 10 MG TABLET PO SCH (19:46)
[2022-01-30 03:09] VITALS: BP 135/77
[2022-01-30 05:26] LABS: HEMATOCRIT 33 % (35-52); HEMOGLOBIN 9.4 g/dL (11.5-16.0); MEAN CORPUSCULAR HEMOGLOBIN 23 pg (25-34); MEAN CORPUSCULAR HGB CONC 29 g/dL (32-36); MEAN CORPUSCULAR VOLUME 81 fL (80-99); PLATELET COUNT 281 10^3/uL (130-400); WHITE BLOOD COUNT 7.9 10^3/uL (4.3-11.0)
[2022-01-30] MEDS: inSUlin ASPART (NovoLOG) 1 UNIT/0.01 ML (CHARGE PER UNIT) SC SCH ×4 (05:26→20:04)
[2022-01-30 05:43] LABS: POTASSIUM 3.7 MMOL/L (3.6-5.0)
[2022-01-30 05:49] LABS: CREATININE SERUM 0.92 MG/DL (0.60-1.30)
[2022-01-30 07:45] VITALS: BP 160/69
[2022-01-30] MEDS: APIXABAN 5 MG (ELIQUIS) TABLET PO SCH ×2 (08:36→20:04)
[2022-01-30] MEDS: DOCUSATE SODIUM 100 MG (COLACE) CAP PO SCH ×2 (08:36→20:04)
[2022-01-30] MEDS: FUROSEMIDE 40 MG/4 ML INJ (LASIX) IV SCH ×2 (08:36→20:04)
[2022-01-30] MEDS: GABAPENTIN 100 MG (NEURONTIN) CAP PO SCH ×3 (08:36→20:04)
[2022-01-30] MEDS: KCL 20 MEQ TAB (K-DUR) PO SCH ×2 (08:36→18:06)
--- NOTE | 2022-01-30 09:09 | Physical Therapy Daily Note ---
PT Daily Note-Current Subjective Patient reluctantly agrees to PT. Pain Section J - Health Conditions 1. Rarely or not at all 2. Occasionally 3. Frequently 4. Almost constantly 8. Unable to answer Pain Effect on Sleep: 1 Pain Interference with Therapy: 1 Pain Interference w/Day-to-Day: 1 Mental Status Patient Orientation: Person, Time, Situation Attachments: Oxygen, [place] Catheter Transfers SCALE: Activities may be completed with or without assistive devices. 0-Fwfcmnrjjq-wsfdeyd completes the activity by him/herself with no assistance from a helper. 5-Set-up or Clean-up Assistance-helper sets up or cleans up; patient completes activity. [place] assists only prior to or following the activity. 4-Supervision or Touching Assistance-helper provides verbal cues and/or touching/steadying and/or contact guard assistance as patient completes activity. Assistance may be provided throughout the activity or intermittently. 3-Partial/Moderate Assistance-helper does LESS THAN HALF the effort. [place] lifts, holds or supports trunk or limbs, but provides less than half the effort. 2-Substantial/Maximal Assistance-helper does MORE THAN HALF the effort. [place] lifts or holds trunk or limbs and provides more than half the effort. 4-Rzfnjxrvt-wyetqj does ALL the effort. Patient does none of the effort to compl ete the activity. Or, the assistance of 2 or more helpers is required for the patient to complete the activity. If activity was not attempted, code reason: 7-Patient Refused. 9-Not Applicable-not attempted and the patient did not perform the activity before the current illness, exacerbation or injury. 10-Not Attempted due to Environmental Limitations-(lack of equipment, weather restraints, etc.). 88-Not Attempted due to Medical Conditions or Safety Concerns. Lying to Sitting/Side of Bed(Q: 4 Sit to Stand (QC): 4 Chair/Kdm-no-Enjdd Xfer(QC): 4 Weight Bearing Right Lower Extremity: Right Full Weight Bearing Left Lower Extremity: Left Full Weight Bearing Gait Training Distance: 250' Walk 10 feet (QC): 4 Walk 50 ft with 2 Turns(QC): 4 Walk 150 ft (QC): 4 Gait Assistive Device: FWW very slow, functional gait sequence Exercises Seated Therapy Exercises: Ankle pumps, Long arc quads Seated Reps: 12 Assessment Patient requires time to complete all functional tasks. Patient up in recliner with needs met. PT Treadle Cut Off Saw Operator Goals Treadle Cut Off Saw Operator Goals PT Fpc Goals Time Frame: Feb 15, 2022 Roll Left & Right (QC): 6 Sit to Lying (QC): 6 Lying-Sitting on Side/Bed(QC): 6 Sit to Stand (QC): 6 Chair/Eob-ng-Lwntk Xfer(QC): 6 Toilet Transfer (QC): 6 Walk 10 feet (QC): 5 Walk 50ft with 2 Turns (QC): 5 Walk 150 ft (QC): 5 PT Plan Treatment/Plan Treatment Plan: Continue Plan of Care Treatment Plan: Bed Mobility, Education, Functional Activity Patricia, Functional Strength, Gait, Safety, Therapeutic Exercise, Transfers Treatment Duration: Feb 15, 2022 Frequency: 6 times per week Estimated Hrs Per Day: .25 hour per day Patient and/or Family Agrees t: Yes Time Time In: 750 Time Out: 803 DATE: Jan 30, 2022 Total Billed Treatment Time: 13 Total Billed Treatment 1 visit FA 13 min ISAMAR JADE PT Jan 30, 2022 09:09
[2022-01-30] MEDS: PANTOPRAZOLE 20 MG TABLET (PROTONIX) PO SCH (11:05)
--- NOTE | 2022-01-30 11:28 | Occupational Ther Daily Note ---
OT Current Status-Daily Note Subjective No pain reported but pt. states, "Im worn out." Appearance Pt. up in chair. Has already bathed/dressed with nursing assistance. Mental Status/Objective Patient Orientation: Person, Place, Time, Situation ADL-Treatment Therapy Code Descriptions/Definitions Functional [place] Measure: 0=Not Assessed/NA 4=Minimal Assistance 1=Total Assistance 5=Supervision or Setup 2=Maximal Assistance 6=Modified [place] 3=Moderate Assistance 7=Complete IndependenceSCALE: Activities may be completed with or without assistive devices. 7-Bsdcqedfkw-mlvwipu completes the activity by him/herself with no assistance from a helper. 5-Set-up or Clean-up Assistance-helper sets up or cleans up; patient completes activity. [place] assists only prior to or following the activity. 4-Supervision or Touching Assistance-helper provides verbal cues and/or touching/steadying and/or contact guard assistance as patient completes activity. Assistance may be provided throughout the activity or intermittently. 3-Partial/Moderate Assistance-helper does LESS THAN HALF the effort. [place] lifts, holds or supports trunk or limbs, but provides less than half the effort. 2-Substantial/Maximal Assistance-helper does MORE THAN HALF the effort. [place] lifts or holds trunk or limbs and provides more than half the effort. 7-Adofajzpw-lyttoo does ALL the effort. Patient does none of the effort to complete the activity. Or, the assistance of 2 or more helpers is required for the patient to complete the activity. If activity was not attempted, code reason: 7-Patient Refused. 9-Not Applicable-not attempted and the patient did not perform the activity before the current illness, exacerbation or injury. 10-Not Attempted due to Environmental Limitations-(lack of equipment, weather restraints, etc.). 88-Not Attempted due to Medical Conditions or Safety Concerns. Other Treatment Pt. agrees to bilateral UE exercises to work on overall strength and endurance. She completes 5 exercises x 15 reps each with yellow theraband. Pt. requires frequent rest breaks and states that the exercises wear her out. Pt. left with theraband and encouraged to continue them in her room. Verbalizes understanding. Education OT Patient Education: Correct positioning, Exercise program, Home exercise program, Modified ADL techniques, Progress toward Goal/Update tx plan, Purpose of tx/functional activities, Reviewed precautions, Rehab process Teaching Recipient: Patient Teaching Methods: Demonstration, Discussion Response to Teaching: Verbalize Understanding, Return Demonstration OT Content Editor Goals Content Editor Goals Time Frame: Feb 05, 2022 Oral Hygiene (QC): 5 Toileting Hygiene (QC): 4 Shower/Bathe Self (QC): 4 Upper Body Dressing (QC): 4 Lower Body Dressing (QC): 4 On/Off Footwear (QC): 4 Additional Goals: 1-Demonstrate ADL Tasks, 2-Verbalize Understanding, 3- ImproveStrength/Patricia 1=Demonstrate adherence to instructed precautions during ADL tasks. 2=Patient will verbalize/demonstrate understanding of assistive devices/modific ations for ADL. 3=Patient will improve strength/tolerance for activity to enable patient to perform ADL's. OT Education/Plan Problem List/Assessment Assessment: Decreased Activ Tolerance Discharge Recommendations Plan/Recommendations: Continue POC Therapy Discharge Recommendati: Post Acute OT Equpiment Recommendations-D/C: Toilet Riser with Rails Treatment Plan/Plan of Care Treatment,Training & Education: Yes Patient would benefit from OT for education, treatment and training to promote independence in ADL's, mobility, safety and/or upper extremity function for ADL's. Plan of Care: ADL Retraining, Functional Mobility, UE Funct Exercise/Act Treatment Duration: Feb 05, 2022 Frequency: 3 times per week (3-5x/week) Estimated Hrs Per Day: .25 hour per day Rehab Potential: Fair Time Start Time: 11:02 Stop Time: 11:10 DATE: Jan 30, 2022 Total Time Billed (hr/min): 8 Billed Treatment Time 1, Ex ENEDELIA CONNELL OT Jan 30, 2022 11:28
[2022-01-30 11:44] VITALS: BP 128/70
--- NOTE | 2022-01-30 13:59 | Progress Note - Cardiology ---
Cardiology SOAP Progress Note Subjective: She notes improvement of swelling of the legs and of shortness of breath No cp or palp or syncope Gen malaise and weakness No n/v/d Objective: I&O/Vital Signs 01/30/22 01/30/22 01/30/22 01/30/22 03:09 07:00 07:45 08:31 Temp 36.4 36.5 Pulse 82 74 68 Resp 16 18 B/P (MAP) 135/77 (96) 160/69 (99) Pulse Ox 97 98 98 O2 Delivery High Flow N/C High Flow N/C High Flow N/C O2 Flow Rate 3.00 3.00 3.00 01/30/22 01/30/22 11:44 13:00 Temp 36.2 Pulse 76 87 Resp 18 B/P (MAP) 128/70 (89) Pulse Ox 96 O2 Delivery Room Air 01/30/22 00:00 Intake Total 1650 ml Output Total 2000 ml Balance -350 ml Weight (Pounds): 212 Weight (Ounces): 7.0 Weight (Calculated Kilograms): 96.999090 Constitutional: AAO x 3, well-developed, well-nourished Respiratory: No accessory muscle use, No respiratory distress; chest expansion is symmetric, chest is bilaterally symmetric, other (diminished bases bilat) Cardiovascular: irregularly irregular; No JVD; S1 and S2 Gastrointestional: No tender; soft, round, audible bowel sounds Extremities: other (mod bilat LE swelling - improving) Neurologic/Psychiatric: grossly intact (moves all extremities) Skin: other (LLE with redness and warmth) Results/Procedures: Labs Laboratory Tests 01/29/22 16:24: Glucometer 239H 01/29/22 19:38: Glucometer 226H 01/29/22 20:46: Glucometer 234H 01/30/22 04:57: White Blood Count 7.9, Red Blood Count 4.03, Hemoglobin 9.4L, Hematocrit 33L, Mean Corpuscular Volume 81, Mean Corpuscular Hemoglobin 23L, Mean Corpuscular Hemoglobin Concent 29L, Red Cell Distribution Width 16.2H, Platelet Count 281, Mean Platelet Volume 10.0, Sodium Level 139, Potassium Level 3.7, Chloride Level 100, Carbon Dioxide Level 27, Anion Gap 12, Blood Urea Nitrogen 14, Creatinine 0.92, Estimat Glomerular Filtration Rate 61, BUN/Creatinine Ratio 15, Glucose Level 242H, Calcium Level 9.0 01/30/22 05:08: Glucometer 247H 01/30/22 10:57: Glucometer 310H Laboratory Tests 01/29/22 05:56 01/30/22 04:57 A/P: Assessment: Acute on chronic CHF - 2D Echo done 01/27/[address] Barker showing mild diffuse hypokinesia with EF 45%. Dilated right and left atrium, moderate MR, severe TR. PA 75-80mmHg. Cor pulmonale. Severe pulmonary hypertension with dilated right heart chambers. Significant deterioration compared to the previous echo from 2020. Chronic permanent atrial fibrillation - twelve-lead EKG was done showing atrial fibrillation with right bundle branch block. - [id number] score 4, yearly risk of stroke without oral anticoagulation is 4%. - Patient had been taken off anticoagulation probably secondary to recurrent falling. Discussed with Dr. Figueroa and Eliquis 5mg BID has been restarted Pulmonary HTN - likely d/t obesity hypoventilation syndrome/GER Generalized weakness - continue PT/OT Status post acute respiratory failure, history of chronic respiratory insufficiency. - Bi-pap tx Hypertension Hyperlipidemia - maintained on statin History of CKD - monitor Anemia - baseline hemoglobin ~12 - FOBT negative. - Management per medical services DM - management per medical services Peripheral neuropathy Chronic pain syndrome Plan: Continue current medication regimen Hypokalemia d/t aggressive diuresis - replaced, monitor Continue current regimen - Lasix to oral Monitor lab closely HARITHA ESPARZA MD FACP FAC CCDS Jan 30, 2022 13:59
[2022-01-30 16:00] VITALS: BP 162/74
--- NOTE | 2022-01-30 17:15 | Progress Note - Hospitalist ---
Subjective HPI/CC On Admission Date Seen by Provider: Jan 30, 2022 Time Seen by Provider: 11:20 Patient is an 86-year-old female with past medical history of hypertension, A. fib, heart failure, diabetes, hyperlipidemia who presented to the emergency department due to weakness and falls. She was recently admitted to [facility] and was able to be discharged home. Since that time she has had a slow decline in her physical ability. Her daughter reports that she has had multiple falls at home. She has been working with home health but despite that has continued to decline. She presented to the ER this morning after a fall and she was having right shoulder pain. Her mattress slid off the bed frame and she fell to the floor. Daughter reports that she has had increased weight gain as well with increasing edema of her lower extremities. Subjective/Events-last exam She is feeling better. Her leg swelling is improving. She is not wearing oxygen. She is sitting in her chair. She has no complaints. Objective Exam Vital Signs Vital Signs Date Time Temp Pulse Resp B/P (MAP) Pulse Ox O2 Delivery O2 Flow Rate FiO2 01/30/22 16:00 36.7 86 19 162/74 (103) 93 Room Air 01/30/22 08:31 3.00 Capillary Refill : Less Than 3 Seconds General Appearance: No Apparent Distress, Obese Respiratory: Lungs Clear, No Respiratory Distress Cardiovascular: Regular Rate, Rhythm, No Murmur Gastrointestinal: Normal Bowel Sounds, Soft Extremity: Normal Inspection, Pedal Edema, Swelling Neurologic/Psychiatric: Alert, Normal Mood/Affect Skin: Normal Color, Warm/Dry Results/Procedures Lab Laboratory Tests 01/30/22 04:57 Patient resulted labs reviewed. Imaging: Reviewed Imaging Report Assessment/Plan Assessment and Plan Assess & Plan/Chief Complaint Acute on chronic HFpEF Atrial fibrillation Cardiology following IV Lasix Chronic pain HTN HLD Peripheral neuropathy Continue home meds T2DM Add Levemir Sliding scale insulin Debility PT/OT SW following for placement, pending at [place] Diagnosis/Problems Diagnosis/Problems (1) Diastolic CHF, acute on chronic Status: Acute (2) Atrial fibrillation Status: Chronic (3) Essential (primary) hypertension Status: Chronic (4) HLD (hyperlipidemia) Status: Chronic (5) Obesity Status: Chronic (6) Weakness Status: Acute (7) Age-related physical debility Status: Acute (8) Insulin dependent diabetes mellitus Status: Acute MAYDA SMITH MD Jan 30, 2022 17:15
[2022-01-30 19:26] VITALS: BP 164/72
[2022-01-30] MEDS: AtorvaSTATin TABLET 10 MG TABLET PO SCH (20:04)
[2022-01-30 23:12] VITALS: BP 134/72
[2022-01-31] VITALS (7 sets, daily range): BP systolic 110–155; BP diastolic 59–77
[2022-01-31] MEDS: inSUlin ASPART (NovoLOG) 1 UNIT/0.01 ML (CHARGE PER UNIT) SC SCH ×4 (05:01→21:11)
[2022-01-31 06:21] LABS: HEMATOCRIT 33 % (35-52); HEMOGLOBIN 9.6 g/dL (11.5-16.0); MEAN CORPUSCULAR HEMOGLOBIN 23 pg (25-34); MEAN CORPUSCULAR HGB CONC 29 g/dL (32-36); MEAN CORPUSCULAR VOLUME 81 fL (80-99); MEAN PLATELET VOLUME 10.1 fL (9.0-12.2); PLATELET COUNT 285 10^3/uL (130-400); WHITE BLOOD COUNT 8.7 10^3/uL (4.3-11.0)
[2022-01-31 06:45] LABS: CALCIUM 8.9 MG/DL (8.5-10.1); CREATININE SERUM 0.88 MG/DL (0.60-1.30); POTASSIUM 3.7 MMOL/L (3.6-5.0)
[2022-01-31] MEDS: fluCOnazole (DIFLUCAN) 100 MG TAB PO SCH (08:14)
[2022-01-31] MEDS: GABAPENTIN 100 MG (NEURONTIN) CAP PO SCH ×3 (08:14→19:42)
[2022-01-31] MEDS: DOCUSATE SODIUM 100 MG (COLACE) CAP PO SCH ×2 (08:14→19:42)
[2022-01-31] MEDS: KCL 20 MEQ TAB (K-DUR) PO SCH ×2 (08:14→17:19)
[2022-01-31] MEDS: APIXABAN 5 MG (ELIQUIS) TABLET PO SCH ×2 (08:14→19:42)
[2022-01-31] MEDS: FUROSEMIDE 40 MG/4 ML INJ (LASIX) IV SCH ×2 (08:14→19:41)
[2022-01-31] MEDS: PANTOPRAZOLE 20 MG TABLET (PROTONIX) PO SCH (10:54)
--- NOTE | 2022-01-31 11:58 | Occupational Ther Daily Note ---
OT Current Status-Daily Note Subjective Pt in recliner, agreeable to OT Tx. ADL-Treatment Therapy Code Descriptions/Definitions Functional Jones Measure: 0=Not Assessed/NA 4=Minimal Assistance 1=Total Assistance 5=Supervision or Setup 2=Maximal Assistance 6=Modified Jones 3=Moderate Assistance 7=Complete IndependenceSCALE: Activities may be completed with or without assistive devices. 1-Akufatgurs-npcgnos completes the activity by him/herself with no assistance from a helper. 5-Set-up or Clean-up Assistance-helper sets up or cleans up; patient completes activity. [place] assists only prior to or following the activity. 4-Supervision or Touching Assistance-helper provides verbal cues and/or touching/steadying and/or contact guard assistance as patient completes activity. Assistance may be provided throughout the activity or intermittently. 3-Partial/Moderate Assistance-helper does LESS THAN HALF the effort. [place] lifts, holds or supports trunk or limbs, but provides less than half the effort. 2-Substantial/Maximal Assistance-helper does MORE THAN HALF the effort. [place] lifts or holds trunk or limbs and provides more than half the effort. 6-Swwpweewa-uryyff does ALL the effort. Patient does none of the effort to compl ete the activity. Or, the assistance of 2 or more helpers is required for the patient to complete the activity. If activity was not attempted, code reason: 7-Patient Refused. 9-Not Applicable-not attempted and the patient did not perform the activity before the current illness, exacerbation or injury. 10-Not Attempted due to Environmental Limitations-(lack of equipment, weather restraints, etc.). 88-Not Attempted due to Medical Conditions or Safety Concerns. Other Treatment Pt up in recliner, agreeable to OT Tx with focus on increasing BUE Strength and activity tolerance. Pt completed x15 reps, 5/5 tband exercises using light resistance theraband. Pt able to recall 2/5 exercises, min VCs for sequencing and technique. Post tx, pt in recliner, call light in reach and all needs met. Education OT Patient Education: Correct positioning, Energy conservation, Exercise program, Modified ADL techniques, Progress toward Goal/Update tx plan, Purpose of tx/functional activities Teaching Recipient: Patient Response to Teaching: Verbalize Understanding OT Disc Pad Plate Filler Goals Disc Pad Plate Filler Goals Time Frame: Feb 05, 2022 Oral Hygiene (QC): 5 Toileting Hygiene (QC): 4 Shower/Bathe Self (QC): 4 Upper Body Dressing (QC): 4 Lower Body Dressing (QC): 4 On/Off Footwear (QC): 4 Additional Goals: 1-Demonstrate ADL Tasks, 2-Verbalize Understanding, 3-ImproveStrength/Patricia 1=Demonstrate adherence to instructed precautions during ADL tasks. 2=Patient will verbalize/demonstrate understanding of assistive devices/modifications for ADL. 3=Patient will improve strength/tolerance for activity to enable patient to perform ADL's. OT Education/Plan Problem List/Assessment Assessment: Decreased Activ Tolerance, Decreased UE Strength, Impaired I ADL's, Impaired Self-Care Skills Discharge Recommendations Plan/Recommendations: Continue POC Treatment Plan/Plan of Care Patient would benefit from OT for education, treatment and training to promote independence in ADL's, mobility, safety and/or upper extremity function for ADL's. Plan of Care: ADL Retraining, Functional Mobility, UE Funct Exercise/Act Treatment Duration: Feb 05, 2022 Frequency: 3 times per week (3-5x/week) Estimated Hrs Per Day: .25 hour per day Rehab Potential: Fair Time Start Time: 11:43 Stop Time: 11:53 DATE: Jan 31, 2022 Total Time Billed (hr/min): 10 Billed Treatment Time 1, EX QUINTEN BARNES OT Jan 31, 2022 11:58
--- NOTE | 2022-01-31 12:02 | Physical Therapy Daily Note ---
PT Daily Note-Current Subjective Pt notes that she is feeling better and is eager to get up and see how her legs feel. Pain Section J - Health Conditions 1. Rarely or not at all 2. Occasionally 3. Frequently 4. Almost constantly 8. Unable to answer Pain Effect on Sleep: 1 Pain Interference with Therapy: 1 Pain Interference w/Day-to-Day: 1 Mental Status Patient Orientation: Person, Place, Time, Situation Transfers SCALE: Activities may be completed with or without assistive devices. 1-Durcrvggql-iqjtkvh completes the activity by him/herself with no assistance from a helper. 5-Set-up or Clean-up Assistance-helper sets up or cleans up; patient completes activity. [place] assists only prior to or following the activity. 4-Supervision or Touching Assistance-helper provides verbal cues and/or touching/steadying and/or contact guard assistance as patient completes activity. Assistance may be provided throughout the activity or intermittently. 3-Partial/Moderate Assistance-helper does LESS THAN HALF the effort. [place] lifts, holds or supports trunk or limbs, but provides less than half the effort. 2-Substantial/Maximal Assistance-helper does MORE THAN HALF the effort. [place] lifts or holds trunk or limbs and provides more than half the effort. 6-Yfdmbohtq-yhlgqu does ALL the effort. Patient does none of the effort to comp lete the activity. Or, the assistance of 2 or more helpers is required for the patient to complete the activity. If activity was not attempted, code reason: 7-Patient Refused. 9-Not Applicable-not attempted and the patient did not perform the activity before the current illness, exacerbation or injury. 10-Not Attempted due to Environmental Limitations-(lack of equipment, weather restraints, etc.). 88-Not Attempted due to Medical Conditions or Safety Concerns. Sit to Stand (QC): 6 Weight Bearing Right Lower Extremity: Right Full Weight Bearing Left Lower Extremity: Left Full Weight Bearing Gait Training Does the Patient Walk?: Yes Distance: 250ft Walk 10 feet (QC): 6 Walk 50 ft with 2 Turns(QC): 6 Walk 150 ft (QC): 6 Gait Persons Needed: 1 Gait Assistive Device: FWW Good safety throughout ambulation and turns. Wheelchair Training Does the Pt Use a Wheelchair?: No Exercises Seated Therapy Exercises: LE Protocol Seated Reps: 15 Assessment Current Status: Good Progress Pt is showing good progress with safety during transfers and throughout gait. PT Electromechanic Goals Electromechanic Goals PT Electromechanic Goals Time Frame: Feb 15, 2022 Roll Left & Right (QC): 6 Sit to Lying (QC): 6 Lying-Sitting on Side/Bed(QC): 6 Sit to Stand (QC): 6 Chair/Pus-fj-Bkmpv Xfer(QC): 6 Toilet Transfer (QC): 6 Walk 10 feet (QC): 5 Walk 50ft with 2 Turns (QC): 5 Walk 150 ft (QC): 5 PT Plan Treatment/Plan Treatment Plan: Continue Plan of Care Treatment Plan: Bed Mobility, Education, Functional Activity Patricia, Functional Strength, Gait, Safety, Therapeutic Exercise, Transfers Treatment Duration: Feb 15, 2022 Frequency: 6 times per week Estimated Hrs Per Day: .25 hour per day Patient and/or Family Agrees t: Yes Time Time In: 1120 Time Out: 1135 DATE: Jan 31, 2022 Total Billed Treatment Time: 15 Total Billed Treatment 1, gt 15 CHELLE DOBBS PT Jan 31, 2022 12:02
--- NOTE | 2022-01-31 13:05 | Progress Note - Cardiology ---
Cardiology SOAP Progress Note Subjective: Reports improvement of shortness of breath Does not report cp or palp or syncope Notes malaise and weakness Does not report n/v/d Does not report swelling Objective: I&O/Vital Signs 01/31/22 01/31/22 01/31/22 01/31/22 03:29 07:00 07:18 08:10 Temp 36.5 36.5 Pulse 73 74 73 Resp 20 20 B/P (MAP) 155/60 (91) 155/60 (91) Pulse Ox 96 96 96 O2 Delivery High Flow N/C High Flow N/C High Flow N/C O2 Flow Rate 2.00 2.00 2.00 2.00 01/31/22 01/31/22 01/31/22 08:16 12:00 12:47 Temp 35.8 36.6 Pulse 77 86 75 Resp 18 20 B/P (MAP) 129/77 (94) 145/70 (95) Pulse Ox 93 97 O2 Delivery Nasal Cannula O2 Flow Rate 2.00 2.00 01/31/22 00:00 Intake Total 2463 ml Output Total 2650 ml Balance -187 ml Weight (Pounds): 212 Weight (Ounces): 7.0 Weight (Calculated Kilograms): 96.724567 Constitutional: AAO x 3, well-developed, well-nourished Respiratory: No accessory muscle use, No respiratory distress; chest expansion is symmetric, chest is bilaterally symmetric, other (diminished bases bilat) Cardiovascular: irregularly irregular; No JVD; S1 and S2 Gastrointestional: No tender; soft, round, audible bowel sounds Extremities: other (mod bilat LE swelling - improving) Neurologic/Psychiatric: grossly intact (moves all extremities) Skin: other (LLE with redness and warmth) Results/Procedures: Labs Laboratory Tests 01/30/22 15:35: Glucometer 274H 01/30/22 19:41: Glucometer 229H 01/31/22 04:56: Glucometer 197H 01/31/22 05:54: White Blood Count 8.7, Red Blood Count 4.10, Hemoglobin 9.6L, Hematocrit 33L, Mean Corpuscular Volume 81, Mean Corpuscular Hemoglobin 23L, Mean Corpuscular Hemoglobin Concent 29L, Red Cell Distribution Width 16.0H, Platelet Count 285, Mean Platelet Volume 10.1, Sodium Level 140, Potassium Level 3.7, Chloride Level 103, Carbon Dioxide Level 27, Anion Gap 10, Blood Urea Nitrogen 14, Creatinine 0.88, Estimat Glomerular Filtration Rate 65, BUN/Creatinine Ratio 16, Glucose Level 175H, Calcium Level 8.9 01/31/22 10:49: Glucometer 349H Laboratory Tests 01/30/22 04:57 01/31/22 05:54 A/P: Assessment: Acute on chronic CHF and cor pulmonale - 2D Echo done 01/27/[address] Barker showing mild diffuse hypokinesia with EF 45%. Dilated right and left atrium, moderate MR, severe TR. PA 75-80mmHg. Severe pulmonary hypertension with dilated right heart chambers. Significant deterioration compared to the previous echo from 2020. Chronic permanent atrial fibrillation - twelve-lead EKG was done showing atrial fibrillation with right bundle branch block. - [id number] score 4, yearly risk of stroke without oral anticoagulation is 4%. - Patient had been taken off anticoagulation probably secondary to recurrent fa lling. Discussed with Dr. Figueroa and Eliquis 5mg BID has been restarted Pulmonary HTN - likely d/t obesity hypoventilation syndrome/GER Generalized weakness - continue PT/OT Status post acute respiratory failure, history of chronic respiratory insufficiency. - Bi-pap tx Hypertension Hyperlipidemia - maintained on statin History of CKD - monitor Anemia - baseline hemoglobin ~12 - FOBT negative. - Management per medical services DM - management per medical services Peripheral neuropathy Chronic pain syndrome Plan: Complex management, but has made good objective and subjective improvement Continue current medication regimen Monitor lab closely HARITHA ESPARZA MD FACP FACC CCDS Jan 31, 2022 13:05
--- NOTE | 2022-01-31 16:10 | Progress Note - Hospitalist ---
Subjective HPI/CC On Admission Date Seen by Provider: Jan 31, 2022 Time Seen by Provider: 11:25 Patient is an 86-year-old female with past medical history of hypertension, A. fib, heart failure, diabetes, hyperlipidemia who presented to the emergency department due to weakness and falls. She was recently admitted to [facility] and was able to be discharged home. Since that time she has had a slow decline in her physical ability. Her daughter reports that she has had multiple falls at home. She has been working with home health but despite that has continued to decline. She presented to the ER this morning after a fall and she was having right shoulder pain. Her mattress slid off the bed frame and she fell to the floor. Daughter reports that she has had increased weight gain as well with increasing edema of her lower extremities. Subjective/Events-last exam She is feeling better. Her leg swelling is improving. She has been up walking with therapy. Objective Exam Vital Signs Vital Signs Date Time Temp Pulse Resp B/P (MAP) Pulse Ox O2 Delivery O2 Flow Rate FiO2 01/31/22 15:46 36.8 86 18 142/63 (89) 94 Room Air 01/31/22 12:00 2.00 Capillary Refill : Less Than 3 Seconds General Appearance: No Apparent Distress, Obese Respiratory: Lungs Clear, No Respiratory Distress Cardiovascular: Regular Rate, Rhythm, No Murmur Gastrointestinal: Normal Bowel Sounds, Soft Extremity: Normal Inspection, Pedal Edema Neurologic/Psychiatric: Alert, Normal Mood/Affect Skin: Normal Color, Warm/Dry Results/Procedures Lab Laboratory Tests 01/31/22 05:54 Patient resulted labs reviewed. Imaging: Reviewed Imaging Report Assessment/Plan Assessment and Plan Assess & Plan/Chief Complaint Acute on chronic HFpEF Atrial fibrillation Cardiology following IV Lasix, diuresing well Chronic pain HTN HLD Peripheral neuropathy Continue home meds T2DM Increase Levemir Sliding scale insulin Debility PT/OT SW following for placement, pending at [place] Diagnosis/Problems Diagnosis/Problems (1) Diastolic CHF, acute on chronic Status: Acute (2) Atrial fibrillation Status: Chronic (3) Essential (primary) hypertension Status: Chronic (4) HLD (hyperlipidemia) Status: Chronic (5) Obesity Status: Chronic (6) Weakness Status: Acute (7) Age-related physical debility Status: Acute (8) Insulin dependent diabetes mellitus Status: Acute MAYDA SMITH MD Jan 31, 2022 16:10
[2022-01-31] MEDS: MELATONIN 3 MG TABLET PO PRN (19:41)
[2022-01-31] MEDS: AtorvaSTATin TABLET 10 MG TABLET PO SCH (19:42)
[2022-02-01 03:41] VITALS: BP 111/64
[2022-02-01] MEDS: inSUlin ASPART (NovoLOG) 1 UNIT/0.01 ML (CHARGE PER UNIT) SC SCH ×4 (05:34→20:35)
[2022-02-01 05:50] LABS: HEMATOCRIT 34 % (35-52); HEMOGLOBIN 9.8 g/dL (11.5-16.0); MEAN CORPUSCULAR HEMOGLOBIN 24 pg (25-34); MEAN CORPUSCULAR HGB CONC 29 g/dL (32-36); MEAN CORPUSCULAR VOLUME 82 fL (80-99); MEAN PLATELET VOLUME 10.3 fL (9.0-12.2); PLATELET COUNT 288 10^3/uL (130-400); WHITE BLOOD COUNT 9.1 10^3/uL (4.3-11.0)
[2022-02-01 06:23] LABS: CALCIUM 9.1 MG/DL (8.5-10.1); CREATININE SERUM 0.92 MG/DL (0.60-1.30)
[2022-02-01 08:00] VITALS: BP 133/58
--- NOTE | 2022-02-01 08:31 | Progress Note ---
Subjective Subjective Date Seen by Provider: Feb 01, 2022 Time Seen by Provider: 08:15 Pt reports that she is feeling great. She notes she is breathing better, has less shortness of breath. She states that her legs feel better as well. Review of Systems General: No Chills; Fatigue, Malaise HEENT: No Head Aches, No Visual Changes, No Sinus Congestion Pulmonary: Dyspnea; No Cough Cardiovascular: Edema; No: Chest Pain, Palpitations Gastrointestinal: No: Nausea, Abdominal Pain, Diarrhea, Constipation Genitourinary: Other (last in place) Neurological: Weakness, Confusion All Other Systems Reviewed All Other Systems Reviewed: Yes Objective Exam Vital Signs Vital Signs Date Time Temp Pulse Resp B/P (MAP) Pulse Ox O2 Delivery O2 Flow Rate FiO2 02/01/22 08:00 36.1 81 14 133/58 (83) 96 02/01/22 07:00 87 02/01/22 03:41 36.7 67 16 111/64 (80) 98 Nasal Cannula 2.00 02/01/22 01:00 86 01/31/22 23:52 36.9 88 20 110/59 (76) 96 Room Air 01/31/22 20:00 37.5 88 18 141/63 (89) 96 Room Air 01/31/22 19:50 High Flow N/C 2.00 01/31/22 19:00 87 01/31/22 15:46 36.8 86 18 142/63 (89) 94 Room Air 01/31/22 12:47 75 01/31/22 12:00 36.6 86 20 145/70 (95) 97 Nasal Cannula 2.00 I & O 02/01/22 07:00 Intake Total 1895 ml Output Total 3100 ml Balance -1205 ml General Appearance: No Apparent Distress, Obese Eyes: Bilateral Eye Normal Inspection, Bilateral Eye PERRL, Bilateral Eye EOMI HEENT: PERRL/EOMI, Moist Mucous Membranes; No Scleral Icterus (L), No Scleral Icterus (R) Neck: Normal Inspection, Supple Respiratory: Lungs Clear, No Respiratory Distress Cardiovascular: Regular Rate, Rhythm, No Murmur Gastrointestinal: Normal Bowel Sounds, Soft Rectal: Normal Exam Genital/Rectal: Other (last) Extremity: Normal Inspection, Pedal Edema Neurologic/Psychiatric: Alert, Normal Mood/Affect Skin: Normal Color, Warm/Dry Results Lab Laboratory Tests 01/31/22 10:49: Glucometer 349H 01/31/22 15:46: Glucometer 299H 01/31/22 20:42: Glucometer 317H 02/01/22 05:04: White Blood Count 9.1, Red Blood Count 4.14, Hemoglobin 9.8L, Hematocrit 34L, M demarcus Corpuscular Volume 82, Mean Corpuscular Hemoglobin 24L, Mean Corpuscular Hemoglobin Concent 29L, Red Cell Distribution Width 15.9H, Platelet Count 288, Mean Platelet Volume 10.3, Sodium Level 139, Potassium Level 4.0, Chloride Level 101, Carbon Dioxide Level 26, Anion Gap 12, Blood Urea Nitrogen 16, Creatinine 0.92, Estimat Glomerular Filtration Rate 61, BUN/Creatinine Ratio 17, Glucose Level 162H, Calcium Level 9.1 02/01/22 05:32: Glucometer 165H Assessment/Plan Assessment/Plan Admission Dx ACUTE RESPIRATORY FAILURE 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 CHRONIC PAIN SYNDROME CHRONIC OPIOID USE HYPERTENSION CHRONIC ATRIAL FIBRILLATION DIABETES MELLITUS TYPE 2 HYPERLIPIDEMIA PERIPHERAL NEUROPATHY Assessment and Plan ACUTE RESPIRATORY FAILURE 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 CHRONIC PAIN SYNDROME CHRONIC OPIOID USE HYPERTENSION CHRONIC ATRIAL FIBRILLATION DIABETES MELLITUS TYPE 2 HYPERLIPIDEMIA PERIPHERAL NEUROPATHY ACUTE RESPIRATORY FAILURE MILD DIASTOLIC CONGESTIVE HEART FAILURE WITH ELEVATED BNP CHRONIC ATRIAL FIBRILLATION - CHECKED ECHO - REPORT SHOWS PULMONARY HYPERTENSION, VALVULAR DISEASE, DILATED LEFT AND RIGHT ATRIA - 2D Echo done 01/27/[address] Barker showing mild diffuse hypokinesia with EF 45%. Dilated right and left atrium, moderate MR, severe TR. PA 75-80mmHg. Severe pulmonary hypertension with dilated right heart chambers. Significant deterioration compared to the previous echo from 2020. - LASIX IV CHRONIC PAIN SYNDROME WITH CHRONIC OPIOID USE - RESTARTED HOME REGIMEN - STARTED THERAPY HYPERTENSION - RESUMED HOME REGIMEN DIABETES MELLITUS TYPE 2 - RESTARTED HOME INSULIN REGIMEN HYPERLIPIDEMIA - RESTARTED STATIN THERAPY PERIPHERAL NEUROPATHY - RESTARTED HOME REGIMEN ONCE RECONCILED AND PT MORE ALERT ANTICIPATE SHE WILL NEED [facility] PLACEMENT FOR REHAB ON DISCHARGE AND [facility] REGIMEN OF CARE. SHE IS MORE ALERT, IS ABLE TO PARTICIPATE IN THERAPY -BUT SHE IS NOT AT BASELINE OR CLOSE TO BASELINE. SHE WILL NEED MORE HELP/THERAPY THAN ABLE TO GET/PARTICIPATE IN AT HOME WITH HOME HEALTH SERVICES. SHE NEEDS MONITORING OF HER MEDICATIONS, HER WEIGHT NEEDS CLOSELY MONITORED, HER DIETARY INTAKE WILL NEED TO BE MONITORED AND PREVENTED FROM HAVING EXCESSIVE SALT INTAKE. SHE WILL NEED HER VITALS CLOSELY MONITORED WELL - NONE OF WHICH IS ABLE TO BE DONE AT HOME. Admission Dx ACUTE RESPIRATORY FAILURE 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 CHRONIC PAIN SYNDROME CHRONIC OPIOID USE HYPERTENSION CHRONIC ATRIAL FIBRILLATION DIABETES MELLITUS TYPE 2 HYPERLIPIDEMIA PERIPHERAL NEUROPATHY Clinical Quality Measures Admission Status Admission Dx ACUTE RESPIRATORY FAILURE 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 CHRONIC PAIN SYNDROME CHRONIC OPIOID USE HYPERTENSION CHRONIC ATRIAL FIBRILLATION DIABETES MELLITUS TYPE 2 HYPERLIPIDEMIA PERIPHERAL NEUROPATHY DEANGELO FOSTER MD Feb 01, 2022 08:31
[2022-02-01] MEDS: fluCOnazole (DIFLUCAN) 100 MG TAB PO SCH (08:48)
[2022-02-01] MEDS: GABAPENTIN 100 MG (NEURONTIN) CAP PO SCH ×3 (08:48→19:52)
[2022-02-01] MEDS: FUROSEMIDE 40 MG/4 ML INJ (LASIX) IV SCH ×2 (08:48→19:52)
[2022-02-01] MEDS: KCL 20 MEQ TAB (K-DUR) PO SCH ×2 (08:48→17:31)
[2022-02-01] MEDS: APIXABAN 5 MG (ELIQUIS) TABLET PO SCH ×2 (08:48→19:54)
[2022-02-01] MEDS: DOCUSATE SODIUM 100 MG (COLACE) CAP PO SCH ×2 (08:48→19:53)
[2022-02-01 11:29] VITALS: BP 133/68
[2022-02-01] MEDS: PANTOPRAZOLE 20 MG TABLET (PROTONIX) PO SCH (11:32)
--- NOTE | 2022-02-01 13:21 | Physical Therapy Daily Note ---
PT Daily Note-Current Subjective Pt. up in chair, readily agrees to PT. She has no complaints. Pain Section J - Health Conditions 1. Rarely or not at all 2. Occasionally 3. Frequently 4. Almost constantly 8. Unable to answer Pain Effect on Sleep: 1 Pain Interference with Therapy: 1 Pain Interference w/Day-to-Day: 1 Mental Status Patient Orientation: Person, Place, Time, Situation Transfers SCALE: Activities may be completed with or without assistive devices. 5-Fpraauwope-xiyjbcn completes the activity by him/herself with no assistance from a helper. 5-Set-up or Clean-up Assistance-helper sets up or cleans up; patient completes activity. [place] assists only prior to or following the activity. 4-Supervision or Touching Assistance-helper provides verbal cues and/or touching/steadying and/or contact guard assistance as patient completes activity. Assistance may be provided throughout the activity or intermittently. 3-Partial/Moderate Assistance-helper does LESS THAN HALF the effort. [place] lifts, holds or supports trunk or limbs, but provides less than half the effort. 2-Substantial/Maximal Assistance-helper does MORE THAN HALF the effort. [place] lifts or holds trunk or limbs and provides more than half the effort. 0-Iszxmmank-midpzr does ALL the effort. Patient does none of the effort to complete the activity. Or, the assistance of 2 or more helpers is required for the patient to complete the activity. If activity was not attempted, code reason: 7-Patient Refused. 9-Not Applicable-not attempted and the patient did not perform the activity before the current illness, exacerbation or injury. 10-Not Attempted due to Environmental Limitations-(lack of equipment, weather restraints, etc.). 88-Not Attempted due to Medical Conditions or Safety Concerns. Sit to Stand (QC): 4 Toilet Transfer (QC): 4 CGA needed only Weight Bearing Right Lower Extremity: Right Full Weight Bearing Left Lower Extremity: Left Full Weight Bearing Gait Training Does the Patient Walk?: Yes Distance: 250 ft Walk 10 feet (QC): 4 Walk 150 ft (QC): 4 Gait Persons Needed: 1 Gait Assistive Device: FWW pt. is steady with ambulation, improved to SBA from CGA Assessment Current Status: Good Progress Pt. did very well with ambulation and is progressing well with mobility and strength. Pt. returned to bedside chair with call light and all needs met. PT [facility] Goals Gift Shop Clerk Goals PT [facility] Goals Time Frame: Feb 15, 2022 Roll Left & Right (QC): 6 Sit to Lying (QC): 6 Lying-Sitting on Side/Bed(QC): 6 Sit to Stand (QC): 6 Chair/Mtw-ic-Mmhsn Xfer(QC): 6 Toilet Transfer (QC): 6 Walk 10 feet (QC): 5 Walk 50ft with 2 Turns (QC): 5 Walk 150 ft (QC): 5 PT Plan Treatment/Plan Treatment Plan: Continue Plan of Care Treatment Plan: Bed Mobility, Education, Functional Activity Patricia, Functional Strength, Gait, Safety, Therapeutic Exercise, Transfers Treatment Duration: Feb 15, 2022 Frequency: 6 times per week Estimated Hrs Per Day: .25 hour per day Patient and/or Family Agrees t: Yes Time Time In: 936 Time Out: 948 DATE: Feb 01, 2022 Total Billed Treatment Time: 12 Total Billed Treatment 1, GT 12' JUAN FIGUEROA PT Feb 01, 2022 13:21
--- NOTE | 2022-02-01 14:09 | Progress Note - Cardiology ---
Cardiology SOAP Progress Note Subjective: Does not report cp Improving shortness of breath Gen weakness and malaise are present No n/v/d No focal weakness No swelling Objective: I&O/Vital Signs 02/01/22 02/01/22 02/01/22 02/01/22 03:41 07:00 08:00 08:43 Temp 36.7 36.1 Pulse 67 87 81 Resp 16 14 B/P (MAP) 111/64 (80) 133/58 (83) Pulse Ox 98 96 96 O2 Delivery Nasal Cannula Nasal Cannula O2 Flow Rate 2.00 2.00 02/01/22 02/01/22 11:29 13:00 Temp 36.1 Pulse 75 79 Resp 16 B/P (MAP) 133/68 (89) 02/01/22 00:00 Intake Total 1695 ml Output Total 2600 ml Balance -905 ml Weight (Pounds): 212 Weight (Ounces): 7.0 Weight (Calculated Kilograms): 96.107503 Constitutional: AAO x 3, well-developed, well-nourished Respiratory: No accessory muscle use, No respiratory distress; chest expansion is symmetric, chest is bilaterally symmetric, other (diminished bases bilat) Cardiovascular: irregularly irregular; No JVD; S1 and S2 Gastrointestional: No tender; soft, round, audible bowel sounds Extremities: other (mod bilat LE swelling - improving) Neurologic/Psychiatric: grossly intact (moves all extremities) Skin: other (LLE with redness and warmth) Results/Procedures: Labs Laboratory Tests 01/31/22 15:46: Glucometer 299H 01/31/22 20:42: Glucometer 317H 02/01/22 05:04: White Blood Count 9.1, Red Blood Count 4.14, Hemoglobin 9.8L, Hematocrit 34L, Mean Corpuscular Volume 82, Mean Corpuscular Hemoglobin 24L, Mean Corpuscular Hemoglobin Concent 29L, Red Cell Distribution Width 15.9H, Platelet Count 288, Mean Platelet Volume 10.3, Sodium Level 139, Potassium Level 4.0, Chloride Level 101, Carbon Dioxide Level 26, Anion Gap 12, Blood Urea Nitrogen 16, Creatinine 0.92, Estimat Glomerular Filtration Rate 61, BUN/Creatinine Ratio 17, Glucose Level 162H, Calcium Level 9.1 02/01/22 05:32: Glucometer 165H 02/01/22 10:48: Glucometer 216H Laboratory Tests 01/31/22 05:54 02/01/22 05:04 A/P: Assessment: Acute on chronic CHF and cor pulmonale - 2D Echo done 01/27/[address] Barker showing mild diffuse hypokinesia with EF 45%. Dilated right and left atrium, moderate MR, severe TR. PA 75-80mmHg. Severe pulmonary hypertension with dilated right heart chambers. Significant deterior ation compared to the previous echo from 2020. Chronic permanent atrial fibrillation - twelve-lead EKG was done showing atrial fibrillation with right bundle branch block. - [id number] score 4, yearly risk of stroke without oral anticoagulation is 4%. - Patient had been taken off anticoagulation probably secondary to recurrent falling. Discussed with Dr. Figueroa and Eliquis 5mg BID has been restarted Pulmonary HTN - likely d/t obesity hypoventilation syndrome/GER Generalized weakness - continue PT/OT Status post acute respiratory failure, history of chronic respiratory insufficiency. - Bi-pap tx Hypertension Hyperlipidemia - maintained on statin History of CKD - monitor Anemia - baseline hemoglobin ~12 - FOBT negative. - Management per medical services DM - management per medical services Peripheral neuropathy Chronic pain syndrome Plan: Complex management, but has made good objective and subjective improvement Continue current medication regimen Monitor lab closely HARITHA ESPARZA MD FACP FAC CCDS Feb 01, 2022 14:09
[2022-02-01 16:00] VITALS: BP 124/59
[2022-02-01 19:34] VITALS: BP 132/62
[2022-02-01] MEDS: AtorvaSTATin TABLET 10 MG TABLET PO SCH (19:53)
[2022-02-01 23:23] VITALS: BP 128/74
[2022-02-02 03:29] VITALS: BP 116/56
[2022-02-02 05:55] LABS: HEMATOCRIT 33 % (35-52); HEMOGLOBIN 9.8 g/dL (11.5-16.0); MEAN CORPUSCULAR HEMOGLOBIN 23 pg (25-34); MEAN CORPUSCULAR HGB CONC 29 g/dL (32-36); MEAN CORPUSCULAR VOLUME 80 fL (80-99); MEAN PLATELET VOLUME 10.3 fL (9.0-12.2); PLATELET COUNT 269 10^3/uL (130-400); WHITE BLOOD COUNT 9.1 10^3/uL (4.3-11.0)
[2022-02-02 06:24] LABS: CALCIUM 9.2 MG/DL (8.5-10.1); CREATININE SERUM 1.03 MG/DL (0.60-1.30); POTASSIUM 3.9 MMOL/L (3.6-5.0)
[2022-02-02] MEDS: inSUlin ASPART (NovoLOG) 1 UNIT/0.01 ML (CHARGE PER UNIT) SC SCH ×4 (06:37→20:56)
[2022-02-02 08:00] VITALS: BP 122/76
[2022-02-02] MEDS: GABAPENTIN 100 MG (NEURONTIN) CAP PO SCH ×3 (08:26→20:10)
[2022-02-02] MEDS: APIXABAN 5 MG (ELIQUIS) TABLET PO SCH ×2 (08:26→20:09)
[2022-02-02] MEDS: FUROSEMIDE 40 MG/4 ML INJ (LASIX) IV SCH (08:26)
[2022-02-02] MEDS: KCL 20 MEQ TAB (K-DUR) PO SCH ×2 (08:26→17:07)
[2022-02-02] MEDS: DOCUSATE SODIUM 100 MG (COLACE) CAP PO SCH ×2 (08:26→20:10)
[2022-02-02] MEDS: fluCOnazole (DIFLUCAN) 100 MG TAB PO SCH (08:26)
--- NOTE | 2022-02-02 09:15 | Progress Note ---
Subjective Subjective Date Seen by Provider: Feb 02, 2022 Time Seen by Provider: 08:45 Pt reports that she is feeling better today. She reports that her strength has improved as well. She admits to having trouble at home following her dietary restrictions with her diabetes and is unsure if she will be able to keep to her low sodium diet. Review of Systems General: No Chills; Fatigue, Malaise HEENT: No Head Aches, No Visual Changes, No Sinus Congestion Pulmonary: Dyspnea; No Cough Cardiovascular: Edema; No: Chest Pain, Palpitations Gastrointestinal: No: Nausea, Abdominal Pain, Diarrhea, Constipation Genitourinary: Other (last in place) Neurological: Weakness, Confusion All Other Systems Reviewed All Other Systems Reviewed: Yes Objective Exam Vital Signs Vital Signs Date Time Temp Pulse Resp B/P (MAP) Pulse Ox O2 Delivery O2 Flow Rate FiO2 02/02/22 08:19 95 Nasal Cannula 2.00 02/02/22 08:00 36.5 85 16 122/76 (91) 95 02/02/22 07:00 87 02/02/22 03:29 36.6 83 20 116/56 (76) 98 Nasal Cannula 2.00 02/02/22 01:00 87 02/01/22 23:23 36.4 80 20 128/74 (92) 96 Nasal Cannula 2.00 02/01/22 20:00 High Flow N/C 2.00 02/01/22 19:34 37.0 95 18 132/62 (85) 96 Room Air 02/01/22 19:00 90 02/01/22 18:53 High Flow N/C 3.00 02/01/22 16:00 37.0 84 18 124/59 (80) 94 Room Air 02/01/22 13:00 79 02/01/22 11:29 36.1 75 16 133/68 (89) I & O 02/02/22 07:00 Intake Total 1510 ml Output Total 1150 ml Balance 360 ml General Appearance: No Apparent Distress, Obese Eyes: Bilateral Eye Normal Inspection, Bilateral Eye PERRL, Bilateral Eye EOMI HEENT: PERRL/EOMI, Moist Mucous Membranes; No Scleral Icterus (L), No Scleral Icterus (R) Neck: Normal Inspection, Supple Respiratory: Lungs Clear, No Respiratory Distress Cardiovascular: Regular Rate, Rhythm, No Murmur Gastrointestinal: Normal Bowel Sounds, Soft Rectal: Normal Exam Genital/Rectal: Other (last) Extremity: Normal Inspection, Pedal Edema Neurologic/Psychiatric: Alert, Normal Mood/Affect Skin: Normal Color, Warm/Dry Results Lab Laboratory Tests 02/01/22 10:48: Glucometer 216H 02/01/22 15:47: Glucometer 291H 02/01/22 20:05: Glucometer 211H 02/01/22 23:24: Glucometer 213H 02/02/22 05:15: White Blood Count 9.1, Red Blood Count 4.19, Hemoglobin 9.8L, Hematocrit 33L, Mean Corpuscular Volume 80, Mean Corpuscular Hemoglobin 23L, Mean Corpuscular Hemoglobin Concent 29L, Red Cell Distribution Width 15.9H, Platelet Count 269, Mean Platelet Volume 10.3, Sodium Level 136, Potassium Level 3.9, Chloride Level 99, Carbon Dioxide Level 26, Anion Gap 11, Blood Urea Nitrogen 21H, Creatinine 1.03, Estimat Glomerular Filtration Rate 54, BUN/Creatinine Ratio 20, Glucose Level 191H, Calcium Level 9.2 Assessment/Plan Assessment/Plan Admission Dx ACUTE RESPIRATORY FAILURE 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 CHRONIC PAIN SYNDROME CHRONIC OPIOID USE HYPERTENSION CHRONIC ATRIAL FIBRILLATION DIABETES MELLITUS TYPE 2 HYPERLIPIDEMIA PERIPHERAL NEUROPATHY Assessment and Plan ACUTE RESPIRATORY FAILURE 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 CHRONIC PAIN SYNDROME CHRONIC OPIOID USE HYPERTENSION CHRONIC ATRIAL FIBRILLATION DIABETES MELLITUS TYPE 2 HYPERLIPIDEMIA PERIPHERAL NEUROPATHY ACUTE RESPIRATORY FAILURE MILD DIASTOLIC CONGESTIVE HEART FAILURE WITH ELEVATED BNP CHRONIC ATRIAL FIBRILLATION - CHECKED ECHO - REPORT SHOWS PULMONARY HYPERTENSION, VALVULAR DISEASE, DILATED LEFT AND RIGHT ATRIA - 2D Echo done 01/27/[address] Barker showing mild diffuse hypokinesia with EF 45%. Dilated right and left atrium, moderate MR, severe TR. PA 75-80mmHg. Severe pulmonary hypertension with dilated right heart chambers. Significant deterioration compared to the previous echo from 2020. - LASIX IV - change to po today CHRONIC PAIN SYNDROME WITH CHRONIC OPIOID USE - RESTARTED HOME REGIMEN - STARTED THERAPY - pt tolerating therapy fairly well and showing improvement physically with therapy. 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 SHE IS MORE ALERT, IS ABLE TO PARTICIPATE IN THERAPY -BUT SHE IS NOT AT BASELINE OR CLOSE TO BASELINE. SHE WILL NEED MORE HELP/THERAPY THAN ABLE TO GET/PARTICIPATE IN AT HOME WITH HOME HEALTH SERVICES. SHE NEEDS MONITORING OF HER MEDICATIONS, HER WEIGHT NEEDS CLOSELY MONITORED, HER DIETARY INTAKE WILL NEED TO BE MONITORED AND PREVENTED FROM HAVING EXCESSIVE SALT INTAKE. SHE WILL NEED HER VITALS CLOSELY MONITORED WELL - NONE OF WHICH IS ABLE TO BE DONE AT HOME. Admission Dx ACUTE RESPIRATORY FAILURE 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 CHRONIC PAIN SYNDROME CHRONIC OPIOID USE HYPERTENSION CHRONIC ATRIAL FIBRILLATION DIABETES MELLITUS TYPE 2 HYPERLIPIDEMIA PERIPHERAL NEUROPATHY Clinical Quality Measures Admission Status Admission Dx ACUTE RESPIRATORY FAILURE 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 CHRONIC PAIN SYNDROME CHRONIC OPIOID USE HYPERTENSION CHRONIC ATRIAL FIBRILLATION DIABETES MELLITUS TYPE 2 HYPERLIPIDEMIA PERIPHERAL NEUROPATHY DEANGELO FOSTER MD Feb 02, 2022 09:15
[2022-02-02] MEDS: PANTOPRAZOLE 20 MG TABLET (PROTONIX) PO SCH (11:41)
[2022-02-02 11:56] VITALS: BP 113/69
--- NOTE | 2022-02-02 15:25 | Progress Note - Cardiology ---
Cardiology SOAP Progress Note Subjective: No cp or palp or syncope or shortness of breath Gen weakness and malaise persistent No n/v/d Improvement of swelling Objective: I&O/Vital Signs 02/02/22 02/02/22 02/02/22 02/02/22 03:29 07:00 08:00 08:19 Temp 36.6 36.5 Pulse 83 87 85 Resp 20 16 B/P (MAP) 116/56 (76) 122/76 (91) Pulse Ox 98 95 95 O2 Delivery Nasal Cannula Nasal Cannula O2 Flow Rate 2.00 2.00 02/02/22 02/02/22 11:56 13:00 Temp 36.6 Pulse 73 86 Resp 16 B/P (MAP) 113/69 (84) Pulse Ox 93 02/02/22 00:00 Intake Total 1310 ml Output Total 500 ml Balance 810 ml Weight (Pounds): 212 Weight (Ounces): 7.0 Weight (Calculated Kilograms): 96.457378 Constitutional: AAO x 3, well-developed, well-nourished Respiratory: No accessory muscle use, No respiratory distress; chest expansion is symmetric, chest is bilaterally symmetric, other (diminished bases bilat) Cardiovascular: irregularly irregular; No JVD; S1 and S2 Gastrointestional: No tender; soft, round, audible bowel sounds Extremities: other (mod bilat LE swelling - improving) Neurologic/Psychiatric: grossly intact (moves all extremities) Skin: other (LLE with redness and warmth) Results/Procedures: Labs Laboratory Tests 02/01/22 15:47: Glucometer 291H 02/01/22 20:05: Glucometer 211H 02/01/22 23:24: Glucometer 213H 02/02/22 05:15: White Blood Count 9.1, Red Blood Count 4.19, Hemoglobin 9.8L, Hematocrit 33L, Mean Corpuscular Volume 80, Mean Corpuscular Hemoglobin 23L, Mean Corpuscular Hemoglobin Concent 29L, Red Cell Distribution Width 15.9H, Platelet Count 269, Mean Platelet Volume 10.3, Sodium Level 136, Potassium Level 3.9, Chloride Level 99, Carbon Dioxide Level 26, Anion Gap 11, Blood Urea Nitrogen 21H, Creatinine 1.03, Estimat Glomerular Filtration Rate 54, BUN/Creatinine Ratio 20, Glucose Level 191H, Calcium Level 9.2 02/02/22 10:54: Glucometer 273H A/P: Assessment: Acute on chronic CHF and cor pulmonale - 2D Echo done 01/27/[address] Barker showing mild diffuse hypokinesia with EF 45%. Dilated right and left atrium, moderate MR, severe TR. PA 75-80mmHg. Severe pulmonary hypertension with dilated right heart chambers. Significant deterioration compared to the previous echo from 2020. Chronic permanent atrial fibrillation - twelve-lead EKG was done showing atrial fibrillation with right bundle branch block. - [id number] score 4, yearly risk of stroke without oral anticoagulation is 4%. - Patient had been taken off anticoagulation probably secondary to recurrent falling. Discussed with Dr. Figueroa and Eliquis 5mg BID has been restarted Pulmonary HTN - likely d/t obesity hypoventilation syndrome/GER Generalized weakness - continue PT/OT Status post acute respiratory failure, history of chronic respiratory insufficie ncy. - Bi-pap tx Hypertension Hyperlipidemia - maintained on statin History of CKD - monitor Anemia - baseline hemoglobin ~12 - FOBT negative. - Management per medical services DM - management per medical services Peripheral neuropathy Chronic pain syndrome Plan: I discussed her CV issues with her and answered her questions Continue current regimen Monitor lab closely HARITHA ESPARZA MD FACP FACC CCDS Feb 02, 2022 15:24
[2022-02-02 16:00] VITALS: BP 124/76
[2022-02-02] MEDS: FUROSEMIDE 40 MG (LASIX) TAB PO SCH (17:07)
[2022-02-02 19:45] VITALS: BP 116/72
[2022-02-02] MEDS: AtorvaSTATin TABLET 10 MG TABLET PO SCH (20:09)
[2022-02-02] MEDS: MELATONIN 3 MG TABLET PO PRN (20:12)
[2022-02-02 23:02] VITALS: BP 131/72
[2022-02-03 03:30] VITALS: BP 120/56
[2022-02-03 05:49] LABS: HEMATOCRIT 36 % (35-52); HEMOGLOBIN 10.6 g/dL (11.5-16.0); MEAN CORPUSCULAR HEMOGLOBIN 23 pg (25-34); MEAN CORPUSCULAR HGB CONC 29 g/dL (32-36); MEAN CORPUSCULAR VOLUME 80 fL (80-99); MEAN PLATELET VOLUME 10.4 fL (9.0-12.2); PLATELET COUNT 280 10^3/uL (130-400); WHITE BLOOD COUNT 8.7 10^3/uL (4.3-11.0)
[2022-02-03] MEDS: inSUlin ASPART (NovoLOG) 1 UNIT/0.01 ML (CHARGE PER UNIT) SC SCH ×2 (05:57→11:01)
[2022-02-03 06:12] LABS: CALCIUM 9.3 MG/DL (8.5-10.1); CREATININE SERUM 1.28 MG/DL (0.60-1.30); POTASSIUM 4.4 MMOL/L (3.6-5.0)
[2022-02-03] MEDS: FUROSEMIDE 40 MG (LASIX) TAB PO SCH (06:48)
[2022-02-03] MEDS: KCL 20 MEQ TAB (K-DUR) PO SCH (08:05)
[2022-02-03] MEDS: DOCUSATE SODIUM 100 MG (COLACE) CAP PO SCH (08:05)
[2022-02-03] MEDS: APIXABAN 5 MG (ELIQUIS) TABLET PO SCH (08:05)
[2022-02-03] MEDS: GABAPENTIN 100 MG (NEURONTIN) CAP PO SCH (08:05)
[2022-02-03] MEDS: fluCOnazole (DIFLUCAN) 100 MG TAB PO SCH (08:05)
[2022-02-03 08:34] VITALS: BP 133/82
--- NOTE | 2022-02-03 09:21 | Discharge Summary ---
Diagnosis/Chief Complaint Date of Admission Jan 26, 2022 at 10:50 Date of Discharge Discharge Summary Discharge Physical Examination Allergies: Coded Allergies: No Known Drug Allergies (Unverified , 11/16/19) Vitals & I&Os Vital Signs Date Time Temp Pulse Resp B/P (MAP) Pulse Ox O2 Delivery O2 Flow Rate FiO2 02/03/22 08:34 36.1 86 18 133/82 (99) 95 Nasal Cannula 2.00 Hospital Course Pending Labs Laboratory Tests 02/03/22 05:30: White Blood Count 8.7, Red Blood Count 4.54, Hemoglobin 10.6, Hematocrit 36, Mean Corpuscular Volume 80, Mean Corpuscular Hemoglobin 23, Mean Corpuscular Hemoglobin Concent 29, Red Cell Distribution Width 16.0, Platelet Count 280, Mean Platelet Volume 10.4, Sodium Level 138, Potassium Level 4.4, Chloride Level 100, Carbon Dioxide Level 23, Anion Gap 15, Blood Urea Nitrogen 22, Creatinine 1.28, Estimat Glomerular Filtration Rate 41, BUN/Creatinine Ratio 17, Glucose Level 163, Calcium Level 9.3 02/03/22 05:50: Glucometer 169 Discharge Instructions to patient/family Please see electronic discharge instructions given to patient. Discharge Medications Reviewed and agree with Discharge Medication list on patient's Discharge Instruction sheet DEANGELO FOSTER MD Feb 03, 2022 09:21
[2022-02-03] MEDS ORDERED: GABA-486 PO (09:27)
[2022-02-03] MEDS ORDERED: MELA3TAB39 PO (09:27)
[2022-02-03] MEDS ORDERED: CARV3.122 PO (09:27)
[2022-02-03] MEDS ORDERED: APIX5TAB PO (09:27)
[2022-02-03] MEDS ORDERED: HYDR-3820 PO (09:27)
[2022-02-03] MEDS ORDERED: CALC200T40 PO (09:27)
[2022-02-03] MEDS ORDERED: INSU100I32 SQ (09:27)
[2022-02-03] MEDS ORDERED: FLUC100T10 PO (09:27)
[2022-02-03] MEDS ORDERED: POTA-169 PO (09:27)
--- NOTE | 2022-02-03 09:30 | Discharge Inst-Skilled Nursing ---
Discharge Inst-Skilled NF Reconcile Patient Problems Problems Reviewed?: Yes Patient Instructions Patient Problems: ACUTE RESPIRATORY FAILURE 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 CHRONIC PAIN SYNDROME CHRONIC OPIOID USE HYPERTENSION CHRONIC ATRIAL FIBRILLATION DIABETES MELLITUS TYPE 2 HYPERLIPIDEMIA PERIPHERAL NEUROPATHY Goal: increased strength - move to assisted living or stay at [facility] when better Consult/Follow Up/Orders Follow Up Appt.: 1 wk [facility] Skilled NF Admit to: Certification (SNF) I certify that SNF services are required to be given on an inpatient basis b ecause of the above named patient's need for half-way care on a continuing basis for the conditions(s) for which he/she was receiving inpatient hospital services prior to his/her transfer to the SNF. Correction Facility Order: Nursing Services, Product Analyst-Evaluate & Treat, Physical Therapy-Evaluate & Treat Oxygen Delivery Method: Nasal Cannula Oxygen Flow Rate L/min (Range): 2 Discharge Diet: Low Sodium Diet, ADA Diet Daily Activity as Tolerated: Yes Resuscitation Status: Full Code New & Resume Previous Orders Deangelo Figueroa Feb 03, 2022 09:29 DEANGELO FIGUEROA MD Feb 03, 2022 09:30
--- NOTE | 2022-02-03 09:47 | Progress Note - Cardiology ---
Cardiology SOAP Progress Note Objective: I&O/Vital Signs 02/02/22 02/03/22 02/03/22 02/03/22 23:02 01:00 03:30 07:29 Temp 37.0 36.8 Pulse 87 91 85 82 Resp 18 18 B/P (MAP) 131/72 (91) 120/56 (77) Pulse Ox 97 62 O2 Delivery Room Air Room Air 02/03/22 08:34 Temp 36.1 Pulse 86 Resp 18 B/P (MAP) 133/82 (99) Pulse Ox 95 O2 Delivery Nasal Cannula O2 Flow Rate 2.00 02/03/22 00:00 Intake Total 960 ml Balance 960 ml Weight (Pounds): 212 Weight (Ounces): 7.0 Weight (Calculated Kilograms): 96.527480 Constitutional: AAO x 3, well-developed, well-nourished Respiratory: chest expansion is symmetric, chest is bilaterally symmetric, other Cardiovascular: irregularly irregular, S1 and S2 Gastrointestional: soft, round, audible bowel sounds Extremities: other Neurologic/Psychiatric: grossly intact Skin: other Results/Procedures: Labs Laboratory Tests 02/02/22 10:54: Glucometer 273H 02/02/22 15:39: Glucometer 200H 02/02/22 20:27: Glucometer 219H 02/03/22 05:30: White Blood Count 8.7, Red Blood Count 4.54, Hemoglobin 10.6L, Hematocrit 36, Mean Corpuscular Volume 80, Mean Corpuscular Hemoglobin 23L, Mean Corpuscular Hemoglobin Concent 29L, Red Cell Distribution Width 16.0H, Platelet Count 280, Mean Platelet Volume 10.4, Sodium Level 138, Potassium Level 4.4, Chloride Level 100, Carbon Dioxide Level 23, Anion Gap 15H, Blood Urea Nitrogen 22H, Creatinine 1.28, Estimat Glomerular Filtration Rate 41, BUN/Creatinine Ratio 17, Glucose Level 163H, Calcium Level 9.3 02/03/22 05:50: Glucometer 169H Laboratory Tests 02/02/22 05:15 02/03/22 05:30 A/P: Assessment: Acute on chronic CHF and cor pulmonale - 2D Echo done 01/27/[address] Barker showing mild diffuse hypokinesia with EF 45%. Dilated right and left atrium, moderate MR, severe TR. PA 75-80mmHg. Severe pulmonary hypertension with dilated right heart chambers. Significant deterioration compared to the previous echo from 2020. Chronic permanent atrial fibrillation - twelve-lead EKG was done showing atrial fibrillation with right bundle branch block. - [id number] score 4, yearly risk of stroke without oral anticoagulation is 4%. - Patient had been taken off anticoagulation probably secondary to recurrent falling. Discussed with Dr. Figueroa and Eliquis 5mg BID has been restarted Pulmonary HTN - likely d/t obesity hypoventilation syndrome/GER Generalized weakness - continue PT/OT Status post acute respiratory failure, history of chronic respiratory insufficiency. - Bi-pap tx Hypertension Hyperlipidemia - maintained on statin History of CKD - monitor Anemia - baseline hemoglobin ~12 - FOBT negative. - Management per medical services DM - management per medical services Peripheral neuropathy Chronic pain syndrome Plan: Continue current regimen Monitor lab closely SB REDDY Feb 03, 2022 09:47
[2022-02-03] MEDS: PANTOPRAZOLE 20 MG TABLET (PROTONIX) PO SCH (11:01)
[2022-02-03 11:34] VITALS: BP 135/84
--- NOTE | 2022-02-03 12:51 | Progress Note - Cardiology ---
Cardiology SOAP Progress Note Subjective: No cp or palp or syncope Shortness of breath and swelling are much improved No n/v/d Objective: I&O/Vital Signs 02/03/22 02/03/22 02/03/22 02/03/22 01:00 03:30 07:29 08:00 Temp 36.8 Pulse 91 85 82 Resp 18 B/P (MAP) 120/56 (77) Pulse Ox 62 O2 Delivery Room Air High Flow N/C O2 Flow Rate 2.00 02/03/22 02/03/22 08:34 11:34 Temp 36.1 36.1 Pulse 86 85 Resp 18 18 B/P (MAP) 133/82 (99) 135/84 (101) Pulse Ox 95 96 O2 Delivery Nasal Cannula Nasal Cannula O2 Flow Rate 2.00 2.00 02/03/22 00:00 Intake Total 960 ml Balance 960 ml Weight (Pounds): 212 Weight (Ounces): 7.0 Weight (Calculated Kilograms): 96.353882 Constitutional: AAO x 3, well-developed, well-nourished Respiratory: chest expansion is symmetric, chest is bilaterally symmetric, other Cardiovascular: irregularly irregular, S1 and S2 Gastrointestional: soft, round, audible bowel sounds Extremities: other Neurologic/Psychiatric: grossly intact Skin: other Results/Procedures: Labs Laboratory Tests 02/02/22 15:39: Glucometer 200H 02/02/22 20:27: Glucometer 219H 02/03/22 05:30: White Blood Count 8.7, Red Blood Count 4.54, Hemoglobin 10.6L, Hematocrit 36, Mean Corpuscular Volume 80, Mean Corpuscular Hemoglobin 23L, Mean Corpuscular Hemoglobin Concent 29L, Red Cell Distribution Width 16.0H, Platelet Count 280, Mean Platelet Volume 10.4, Sodium Level 138, Potassium Level 4.4, Chloride Level 100, Carbon Dioxide Level 23, Anion Gap 15H, Blood Urea Nitrogen 22H, Creatinine 1.28, Estimat Glomerular Filtration Rate 41, BUN/Creatinine Ratio 17, Glucose Level 163H, Calcium Level 9.3 02/03/22 05:50: Glucometer 169H 02/03/22 09:50: SARS-CoV-2 RNA (RT-PCR) Not Detected 02/03/22 10:41: Glucometer 369H Laboratory Tests 02/02/22 05:15 02/03/22 05:30 A/P: Assessment: Acute on chronic CHF and cor pulmonale - 2D Echo done 01/27/[address] Barker showing mild diffuse hypokinesia with EF 45%. Dilated right and left atrium, moderate MR, severe TR. PA 75-80mmHg. Severe pulmonary hypertension with dilated right heart chambers. Significant deterioration compared to the previous echo from 2020. Chronic permanent atrial fibrillation - twelve-lead EKG was done showing atrial fibrillation with right bundle branch block. - [id number] score 4, yearly risk of stroke without oral anticoagulation is 4%. - Patient had been taken off anticoagulation probably secondary to recurrent falling. Discussed with Dr. Figueroa and Eliquis 5mg BID has been restarted Pulmonary HTN - likely d/t obesity hypoventilation syndrome/GER Generalized weakness - continue PT/OT Status post acute respiratory failure, history of chronic respiratory insufficiency. - Bi-pap tx Hypertension Hyperlipidemia - maintained on statin History of CKD - monitor Anemia - baseline hemoglobin ~12 - FOBT negative. - Management per medical services DM - management per medical services Peripheral neuropathy Chronic pain syndrome Plan: Continue current regimen Outpt cardiac f/u advised (Dr Barker) HARITHA ESPARZA MD FACP FAC CCDS Feb 03, 2022 12:51
== END 2022-02-03 12:45 | DRG 291 ==
LOC: EDUNIT# 08:28 → ER 08:30 → 4TH 10:50
PROVIDERS: ADMIT Family Medicine; ATTEND Family Medicine
PROC: 5A09357 Assistance with Respiratory Ventilation, Less than 24 Consecutive Hours, Continuous Positive Airway Pressure (ICD-10-PCS; principal; 2022-01-27)
PROC: 5A0935A Assistance with Respiratory Ventilation, Less than 24 Consecutive Hours, High Flow/Velocity Cannula (ICD-10-PCS; 2022-01-28)
DX: I13.0 Hypertensive heart and chronic kidney disease with heart failure and stage 1 through stage 4 chronic kidney disease, or unspecified chronic kidney disease (principal); I50.33 Acute on chronic diastolic (congestive) heart failure; J96.00 Acute respiratory failure, unspecified whether with hypoxia or hypercapnia; I48.19 Other persistent atrial fibrillation; E66.2 Morbid (severe) obesity with alveolar hypoventilation; N18.31 Chronic kidney disease, stage 3a; E11.22 Type 2 diabetes mellitus with diabetic chronic kidney disease; Z79.85 Long-term (current) use of injectable non-insulin antidiabetic drugs; Z79.4 Long term (current) use of insulin; R53.81 Other malaise; R60.1 Generalized edema; R53.1 Weakness; I25.10 Atherosclerotic heart disease of native coronary artery without angina pectoris; E78.00 Pure hypercholesterolemia, unspecified; K21.9 Gastro-esophageal reflux disease without esophagitis; M19.90 Unspecified osteoarthritis, unspecified site; F41.9 Anxiety disorder, unspecified; F32.A Depression, unspecified; G89.4 Chronic pain syndrome; F11.90 Opioid use, unspecified, uncomplicated; E11.42 Type 2 diabetes mellitus with diabetic polyneuropathy; Z87.891 Personal history of nicotine dependence; I27.20 Pulmonary hypertension, unspecified; Z20.822 Contact with and (suspected) exposure to COVID-19; Z68.34 Body mass index [BMI] 34.0-34.9, adult
CPT/HCPCS: 36415; 51702; 71045; 73030; 80048; 80053; 81000; 82274; 82947; 83735; 83880; 85025; 85027; 87636; 93005; 93306; 93970; 94660; 96374

== ENCOUNTER 2022-03-21 19:42 | Inpatient (IN) | payer MEDICARE, MEDICAID ==
[~2022-03-21] VITALS: Ht 172 cm; Wt 104.6 kg
[~2022-03-21 19:42] MED LIST changes: +CALC200T40 PO; +CARV3.122 PO; +FLUC100T10 PO; +HYDR-3820 PO; +MELA3TAB39 PO; +POTA-169 PO; -POTA10CA43 PO; +POTA10CA44 PO
--- NOTE | 2022-03-21 20:06 | ED Dyspnea ---
General Stated Complaint: SWOLLEN, DIFFICULTY BREATHING Source of Information: Patient (PT IS POOR/LIMITED HISTORIAN), Old Records (PMH IS FROM PT AND OLD RECORDS), Other (DAUGHTER--SOMEWHAT LIMITED HISTORIAN ABOUT PMH) History of Present Illness Date Seen by Provider: Mar 21, 2022 Time Seen by Provider: 19:50 Initial Comments PT ARRIVES VIA POV FROM HOME WITH DAUGHTER--PT LIVES WITH DAUGHTER, NEEDS ASSIST OUT OF VEHICLE AND NEEDS WHEELCHAIR ON ARRIVAL PT C/O SHORTNESS OF BREATHING AND INCREASING LEG SWELLING FOR THE PAST 2-3 WEEKS SHE HAS GAINED 8# IN THE LAST 3 DAYS NO CHEST PAIN NO PALPITATIONS NO DIZZINESS OR SYNCOPE NO COUGH OR URI SYMPTOMS NO FEVER/SWEATS/CHILLS NO GI SYMPTOMS, AND HAS BEEN EATING AND DRINKING NORMALLY SHE DOES C/O LEG PAIN / ACHING --HAS PERIPHERAL NEUROPATHY SHE WEARS O2 AT 2L/NC AT NIGHT, BUT TODAY SHE HAS WORN OXYGEN DURING THE DAY FOR THE FIRST TIME. SHE HAS HOME HEALTH, AND THEY TRIED TO DRAW BLOOD TODAY, AND CALLED DR. FOSTER'S OFFICE TODAY. DR. FOSTER'S OFFICE CALLED HER TONIGHT AT 1730 AND TOLD HER TO COME TO ER. PT HAS HISTORY OF CHF, HTN, DIABETES. SHE HAS NOT HAD ANY MEDICATION CHANGES OR ANY MISSED DOSES OF MEDICATIONS. SHE TOOK MORNING MEDICATIONS, BUT HAS NOT HAD ANY EVENING MEDICATIONS YET. HER BLOOD SUGAR WAS 64 THIS AM, AND 116 AT 1730 TONIGHT SHE IS NOT SURE IF SHE HAS HAD ATRIAL FIBRILLATION BEFORE, BUT SHE IS NOT ON ASPIRIN OR BLOOD THINNERS OR ANTI-ARRHYTHMICS. SHE HAS AHD COVID VACCINE X 2, AND FLU VACCINE FOR THIS SEASON NO KNOWN SICK CONTACTS. PCP: DR. FOSTER SHE DOES NOT SEE A MANAGER OUTREACH. Allergies and Home Medications Allergies Coded Allergies: No Known Drug Allergies (Unverified , 11/16/19) Patient Home Medication List Home Medication List Reviewed: Yes Apixaban (Eliquis) 5 Mg Tablet, 5 MG PO BID Prescribed by: DEANGELO FOSTER on 02/03/22926 Calcium Carbonate (Calcium Antacid) 200 Mg Calcium (500 Mg) Tab.chew, 500 MG PO Q4H PRN for INDIGESTION 1ST LINE Prescribed by: DEANGELO FOSTER on 02/03/22926 Carvedilol (Carvedilol) 3.125 Mg Tablet, 3.125 MG PO BID Prescribed by: DEANGELO FOSTER on 02/03/22926 Docusate Sodium (Colace) 100 Mg Capsule, 100 MG PO BID, (Reported) Entered as Reported by: EDWIN ANGELA on 09/11/162022 Escitalopram Oxalate (Escitalopram Oxalate) 20 Mg Tablet, 20 MG PO HS, (Reported) Entered as Reported by: SULEIMAN SANCHEZ on 12/11/17 131 Fluconazole (Fluconazole) 100 Mg Tablet, 100 MG PO DAILY Prescribed by: DEANGELO FOSTER on 02/03/22926 Furosemide (Furosemide) 20 Mg Tablet, 40 MG PO 0800,1600, (Reported) Entered as Reported by: ANDRAI ROMERO on 07/06/18 114 Gabapentin (Gabapentin) 100 Mg Capsule, 100 MG PO TID Prescribed by: DEANGELO FOSTER on 02/03/22927 Hydrocodone/Acetaminophen (Hydrocodone-Acetamin 10-325 mg) 10 Mg-325 Mg Tablet, 1 EACH PO QID PRN for PAIN-MODERATE (5-7) Prescribed by: DEANGELO FOSTER on 02/03/22927 Insulin Degludec (Tresiba Flextouch U-100) 100 Unit/Ml (3 Ml) Insuln.pen, 40 UNITS SQ HS Prescribed by: DEANGELO FOSTER on 02/03/22926 Melatonin (Melatonin) 3 Mg Tablet, 3 MG PO HS PRN for SLEEP Prescribed by: DEANGELO FOSTER on 02/03/22926 Omeprazole (Omeprazole) 20 Mg Capsule.dr, 20 MG PO 1200, (Reported) Entered as Reported by: SULEIMAN SANCHEZ on 12/11/17 131 Potassium Chloride (Klor-Con M20) 20 Meq Tab.er.prt, 20 MEQ PO BID WITH MEALS Prescribed by: DEANGELO FOSTER on 02/03/22926 Simvastatin (Simvastatin) 20 Mg Tablet, 20 MG PO HS, (Reported) Entered as Reported by: EDWIN ANGELA on 09/11/162022 Review of Systems Review of Systems Constitutional: no symptoms reported; No chills, No diaphoresis, No dizziness, No fever EENTM: no symptoms reported Respiratory: see HPI; No cough; dyspnea on exertion, orthopnea, short of breath Cardiovascular: see HPI; No chest pain; edema; No palpitations, No syncope Gastrointestinal: no symptoms reported Genitourinary: no symptoms reported Musculoskeletal: see HPI (LEG SWELLING AND LEGS ACHE/HURT) Skin: no symptoms reported Psychiatric/Neurological: No Symptoms Reported Endocrine: No Symptoms Reported Hematologic/Lymphatic: No Symptoms Reported Past Sgbqooh-Njlbqa-Jqffzq Hx Patient Social History Tobacco Use?: Yes Tobacco type used: Cigarettes Smoking Status: Former Smoker Substance use?: No Alcohol Use?: No Immunizations Up To Date Tetanus Booster (TDap): Unknown First/Initial COVID19 Vaccinat: AUGUST 2020 Second COVID19 Vaccination Sacha: SEPTEMBER 2020 Third COVID19 Vaccination Date: AUGUST 2020 Seasonal Allergies Seasonal Allergies: No Past Medical History Surgery/Hospitalization HX: N/A Surgeries: Yes (bilat hip replacement;wrist surgery;port/REMOVAL;brain aneurysm removed;CAT) Eye Surgery, Hysterectomy, Joint Replacement, Neurological, Orthopedic Respiratory: Yes (O2 2L NC AT NIGHT) Currently Using CPAP: No Currently Using BIPAP: No Cardiac: Yes (RBBB) Atrial Fibrillation, Chronic Edema/Swelling, Coronary Artery Disease, High Cholesterol, Hypertension Neurological: Yes (CEREBRAL ANEURYSM WITH SURGERY) Neuropathy, Stroke, TIA, Vertigo 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 Disorders: No Female 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 Disorders: Denies INSEMINATOR History: Menopausal Sexually Transmitted Disease: No HIV/AIDS: No Genitourinary: Yes (CHRONIC RENAL FAILURE/INSUFF. --NO DIALYSIS) Renal Failure, UTI-Chronic Gastrointestinal: Yes (LOWER GI BLEED WHEN ON ELIQUIS) Gastroesophageal Reflux, Gastrointestinal Bleed, Chronic Constipation, Polyps Musculoskeletal: Yes Degenerate Disk Disease, Arthritis Endocrine: Yes (OBESITY) Diabetes, Insulin dep HEENT: Yes (GLASSES, DENTURES) Cataract Loss of Vision: Denies Hearing Impairment: Denies Cancer: No Psychosocial: Yes Anxiety, Depression Integumentary: No Blood Disorders: Yes (ANEMIA) Adverse Reaction/Blood Tranf: No (N/A) Family Medical History Myocardial infarction 19 MOTHER Heart Disease, Hypertension SOCIAL HISTORY: -SMOKED IN PAST, QUIT 1984 -[facility]--OCCASIONAL USE IN PAST, NONE FOR YEARS -DRUGS--DENIES USE PAST SURGICAL HISTORY: -BILATERAL CATARACTS 01/2019 -PORT PLACED/LATER REMOVED -BILATERAL KNEE REPLACEMENTS -RIGHT KNEE SCOPE/TORN MENISCUS 11/16/[address] BAILEY. -BILATERAL WRIST SURGERY -SURGERY FOR BRAIN ANEURYSM -COLONOSCOPIES/POLYPECTOMIES -EGD'S -APPENDECTOMY -HYSTERECTOMY/BILATERAL SALPINGO-OOPHORECTOMY -BLADDER SURGERY -CARDIAC CATH-NO INTERVENTION Physical Exam Vital Signs Vital Signs - First Documented 03/21/22 03/21/22 19:45 19:48 Temp 36.6 Pulse 86 Resp 20 B/P (MAP) 148/68 (94) Pulse Ox 100 O2 Delivery Nasal Cannula O2 Flow Rate 2.00 Capillary Refill : Height, Weight, BMI Height: 5'8.00" Weight: 212lbs. 7.0oz. 96.159213kr; 34.79 BMI Method:Stated General Appearance: WD/WN, Obese, Other (MILD TO MODERATE DYSPNEA ON ARRIVAL) Neck: Normal Inspection; No JVD Respiratory: Other (DECREASED LUNG SOUNDS IN BASES, MILD TO MODERATE DYSPNEA. ) Cardiovascular: No JVD, Irregularly Irregular Gastrointestinal: Non Tender, Soft Extremity: Pedal Edema (4+ EDEMA BILATERLLY. LEGS DIFFUSELY TENDER. NO SIGNS OF CELLULITIS. NO WEEPING), Other (UNABLE TO PALPATE PULSES DUE TO EDEMA, FEET ARE COOL BUT PINK WITH GOOD CAPILLARY REFILL. DECREASED SENSATION TO TOES DUE TO PERIPHERAL NEUROPATHY) Neurologic/Psychiatric: Alert, Oriented x3 (BUT POOR MEMORY), No Motor/Sensory Deficits, leather grainer II-XII Norm as Tested Skin: Normal Color, Warm/Dry Progress/Results/Core Measures Results/Orders Lab Results Laboratory Tests Test 03/21/22 20:13 03/21/22 20:16 Range/Units White Blood Count 6.8 4.3-11.0 10^3/uL Red Blood Count 3.50 L 3.80-5.11 10^6/uL Hemoglobin 7.7 L 11.5-16.0 g/dL Hematocrit 27 L 35-52 % Mean Corpuscular Volume 78 L 80-99 fL Mean Corpuscular Hemoglobin 22 L 25-34 pg Mean Corpuscular Hemoglobin Concent 28 L 32-36 g/dL Red Cell Distribution Width 17.2 H 10.0-14.5 % Platelet Count 236 130-400 10^3/uL Mean Platelet Volume 9.9 9.0-12.2 fL Immature Granulocyte % (Auto) 0 % Neutrophils (%) (Auto) 72 42-75 % Lymphocytes (%) (Auto) 16 12-44 % Monocytes (%) (Auto) 10 0-12 % Eosinophils (%) (Auto) 1 0-10 % Basophils (%) (Auto) 0 0-10 % Neutrophils # (Auto) 4.9 1.8-7.8 10^3/uL Lymphocytes # (Auto) 1.1 1.0-4.0 10^3/uL Monocytes # (Auto) 0.7 0.0-1.0 10^3/uL Eosinophils # (Auto) 0.0 0.0-0.3 10^3/uL Basophils # (Auto) 0.0 0.0-0.1 10^3/uL Immature Granulocyte # (Auto) 0.0 0.0-0.1 10^3/uL Erythrocyte Sedimentation Rate 49 H 0-30 MM/HR Prothrombin Time 14.9 H 12.2-14.7 SEC INR Comment 1.1 0.8-1.4 Activated Partial Thromboplast Time 42 H 24-35 SEC Sodium Level 144 135-145 MMOL/L Potassium Level 3.8 3.6-5.0 MMOL/L Chloride Level 106 98-107 MMOL/L Carbon Dioxide Level 24 21-32 MMOL/L Anion Gap 14 5-14 MMOL/L Blood Urea Nitrogen 29 H 7-18 MG/DL Creatinine 1.04 0.60-1.30 MG/DL Estimat Glomerular Filtration Rate 53 BUN/Creatinine Ratio 28 Glucose Level 115 H 70-105 MG/DL Calcium Level 9.0 8.5-10.1 MG/DL Corrected Calcium 9.3 8.5-10.1 MG/DL Magnesium Level 2.1 1.6-2.4 MG/DL Total Bilirubin 0.3 0.1-1.0 MG/DL Aspartate Amino Transf (AST/SGOT) 25 5-34 U/L Alanine Aminotransferase (ALT/SGPT) 14 0-55 U/L Alkaline Phosphatase 122 40-136 U/L Total Creatine Kinase 83 29-168 U/L Creatine Kinase MB 4.7 <6.6 NG/ML Myoglobin 74.9 10.0-92.0 NG/ML Troponin I < 0.028 <0.028 NG/ML C-Reactive Protein High Sensitivity 1.90 H 0.00-0.50 MG/DL B-Type Natriuretic Peptide 362.9 H <100.0 PG/ML Total Protein 7.1 6.4-8.2 GM/DL Albumin 3.6 3.2-4.5 GM/DL Influenza Type A (RT-PCR) Not Detected Not Detecte Influenza Type B (RT-PCR) Not Detected Not Detecte SARS-CoV-2 RNA (RT-PCR) Not Detected Not Detecte Glucometer 116 H 70-110 MG/DL My Orders Orders - WILFRED FLETCHER DO Ed Iv/Invasive Line Start (03/21/22 19:49) Ekg Tracing (03/21/22 19:49) O2 (03/21/22 19:49) Monitor-Rhythm Ecg Trace Only (03/21/22 19:49) Bnp [place] (03/21/22 19:49) Cbc With Automated Diff (03/21/22 19:49) Comprehensive Metabolic Panel (03/21/22 19:49) Creatine Kinase (03/21/22 19:49) Creatine Kinase Mb (03/21/22 19:49) Hs C Reactive Protein (03/21/22 19:49) Magnesium (03/21/22 19:49) Protime With Inr (03/21/22 19:49) Partial Thromboplastin Time (03/21/22 19:49) Erythrocyte Sedimentation Rate (03/21/22 19:49) Myoglobin Serum (03/21/22 19:49) Troponin I [place] (03/21/22 19:49) Chest 1 View, Ap/Pa Only (03/21/22 19:49) Covid 19 Inhouse Test (03/21/22 19:49) Influenza A And B By Pcr (03/21/22 19:49) Isolation Central Supply Req (03/21/22 19:49) Furosemide Injection (Lasix Injection) (03/21/22 21:00) Aspirin Chewable Tablet (Baby Aspirin Ch (03/21/22 21:00) Medications Given in ED Current Medications Medications Dose Ordered Sig/Mauricio Route Start Time Stop Time Status Last Admin Dose Admin Aspirin 324 mg ONCE ONCE PO 03/21/22 21:00 03/21/22 21:01 DC 03/21/22 21:14 324 MG Furosemide 80 mg ONCE ONCE IVP 03/21/22 21:00 03/21/22 21:01 DC 03/21/22 21:14 80 MG Vital Signs/I&O 03/21/22 03/21/22 03/21/22 19:45 19:48 20:26 Temp 36.6 Pulse 86 Resp 20 B/P (MAP) 148/68 (94) Pulse Ox 100 100 O2 Delivery Nasal Cannula Nasal Cannula O2 Flow Rate 2.00 2.00 2.00 Progress Progress Note : Progress Note PPE WORN COVID AND FLU TESTING DONE ACCUCHECK 116 ON ARRIVAL O2 SATS 94-95% ON ROOM AIR. PLACED ON O2 AT 2L/NC DUE TO WORK OF BREATHING. O2 SATS UP TO 99-100% PT IS NOTED TO BE IN ATRIAL FIBRILLATION ON ARRIVAL, RATE CONTROLLED. REVIEWED PRIOR RECORDS, INCLUDING ER VISITS, ADMITS, H&P'S, CONSULTS, PROCEDURES AND DISCHARGE SUMMARIES. PT HAS BEEN ADMITTED FOR CHF AND FLUID OVERLOAD IN THE PAST LAST ADMIT WAS IN JANUARY. THAT CHART NOTES THAT PT HAS HISTORY OF CHRONIC ATRIAL FIBRILLATION, DO PREVIOUS HISTORIES, FAR BACK 2011. SHE HAD ALSO RECENTLY BEEN IN [facility] PRIOR TO THAT ADMIT. SHE IS NOW LIVING AT HOME. DAUGHTER LATER STATES THAT SHE WAS ON ELIQUIS IN THE PAST, BUT IT WAS DISCONTINUED TO LOWER GI BLEED Initial ECG Impression Date: Mar 21, 2022 Initial ECG Impression Time: 19:57 Initial ECG Rate: 78 Initial ECG Rhythm: A Fib/Flutter Initial ECG Impression: Nonspecific Changes, Atrial Fibrillation Initial ECG Comparisson: Unchanged (NO CHANGE FROM 01/2022) Comment RBBB, INFERIOR Q WAVES. INTERPRETED BY ME Diagnostic Imaging Comments CXR--PER RADIOLOGIST REPORT AT 2034 COMPARISON: 01/26/2022. There is prominent cardiomegaly. There is mild central vascular prominence without yazan edema. There is no consolidation or pneumothorax or pleural fluid. IMPRESSION: Cardiomegaly and mild central vascular prominence. No focal infiltrate or pleural fluid. Reviewed: Reviewed by Me Departure Communication (Admissions) 2101--SPOKE WITH DR. PINEDA, ABLE BODIED SEAMAN FOR DR. FOSTER. ACCEPTS PT FOR ADMIT. ADVISES TO TRANFUSE 1 UNIT OF BLOOD. WILL CONSULT CARDIOLOGY IN THE MORNING. Impression Primary Impression: ACUTE EXACERBATION OF CHRONIC CHF Additional Impressions: Chronic atrial fibrillation CHRONC RBBB CHF (congestive heart failure) HTN (hypertension) Chronic pain WORSENED CHRONIC ANEMIA CHRONIC LEG EDEMA Peripheral neuropathy Chronic generalized pain Insulin dependent diabetes mellitus Disposition: ADMITTED INPATIENT Condition: Stable Admissions Decision to Admit Reason: Admit from ER (General) Decision to Admit/Date: Mar 21, 2022 Time/Decision to Admit Time: 21:05 Departure-Patient Inst. Referrals: DEANGELO FOSTER MD (PCP/Family) Primary Care Physician WILFRED FLETCHER DO Mar 21, 2022 20:06
[2022-03-21 20:22] LABS: BASOPHILS % (AUTO) 0 % (0-10); EOSINOPHILS % (AUTO) 1 % (0-10); HEMATOCRIT 27 % (35-52); HEMOGLOBIN 7.7 g/dL (11.5-16.0); LYMPHOCYTES # (AUTO) 1.1 10^3/uL (1.0-4.0); LYMPHOCYTES % (AUTO) 16 % (12-44); MEAN CORPUSCULAR HEMOGLOBIN 22 pg (25-34); MEAN CORPUSCULAR HGB CONC 28 g/dL (32-36); MEAN CORPUSCULAR VOLUME 78 fL (80-99); MEAN PLATELET VOLUME 9.9 fL (9.0-12.2); MONOCYTES # (AUTO) 0.7 10^3/uL (0.0-1.0); MONOCYTES % (AUTO) 10 % (0-12); NEUTROPHILS # (AUTO) 4.9 10^3/uL (1.8-7.8); NEUTROPHILS % (AUTO) 72 % (42-75); PLATELET COUNT 236 10^3/uL (130-400); WHITE BLOOD COUNT 6.8 10^3/uL (4.3-11.0)
--- NOTE | 2022-03-21 20:33 | Diagnostic Imaging Report ---
INDICATION: Dyspnea, edema. EXAMINATION: Frontal chest was obtained at 8:17 p.m. COMPARISON: 01/26/2022. There is prominent cardiomegaly. There is mild central vascular prominence without yazan edema. There is no consolidation or pneumothorax or pleural fluid. IMPRESSION: Cardiomegaly and mild central vascular prominence. No focal infiltrate or pleural fluid. Dictated by: Dictated on workstation # [id number]
[2022-03-21 20:36] LABS: ALBUMIN 3.6 GM/DL (3.2-4.5)
[2022-03-21 20:37] LABS: CHLORIDE 106 MMOL/L (98-107); POTASSIUM 3.8 MMOL/L (3.6-5.0); SODIUM 144 MMOL/L (135-145)
[2022-03-21 20:38] LABS: INR 1.1 (0.8-1.4); PROTHROMBIN TIME PATIENT 14.9 SEC (12.2-14.7)
[2022-03-21 20:39] LABS: GLUCOSE 115 MG/DL (70-105); TOTAL PROTEIN 7.1 GM/DL (6.4-8.2)
[2022-03-21 20:40] LABS: CARBON DIOXIDE 24 MMOL/L (21-32)
[2022-03-21 20:41] LABS: BILIRUBIN,TOTAL 0.3 MG/DL (0.1-1.0)
[2022-03-21 20:42] LABS: ALKALINE PHOSPHATASE 122 U/L (40-136)
[2022-03-21 20:43] LABS: CREATININE SERUM 1.04 MG/DL (0.60-1.30); GFR ESTIMATED 53
[2022-03-21 20:44] LABS: BUN/CREATININE RATIO 28
[2022-03-21 20:45] LABS: ALANINE AMINOTRANSFERASE 14 U/L (0-55)
[2022-03-21 20:46] LABS: CREATINE KINASE 83 U/L (29-168); MAGNESIUM 2.1 MG/DL (1.6-2.4)
[2022-03-21 20:49] LABS: ERYTHROCYTE SEDIMENTATION RATE 49 MM/HR (0-30)
[2022-03-21 20:53] LABS: CREATINE KINASE MB 4.7 NG/ML (<6.6)
[2022-03-21] MEDS ORDERED: ASPIRIN 81 MG CHEW (CHILDREN'S ASA) PO ONE (21:00)
[2022-03-21] MEDS ORDERED: FUROSEMIDE 40 MG/4 ML INJ (LASIX) IVP ONE (21:00)
[2022-03-21] MEDS ORDERED: LIDOCAINE UROJET 2% GEL 10 ML PKG TOP ONE (21:15)
[2022-03-21] MEDS ORDERED: NS IV 500 ML 500 ML IV SCH (22:45)
[2022-03-21] MEDS: CATHETER FLUSH 10 ML SYR IVP SCH (23:41)
[2022-03-22] VITALS (20 sets, daily range): BP systolic 104–154; BP diastolic 49–89
[2022-03-22 04:53] LABS: BASOPHILS % (AUTO) 0 % (0-10); EOSINOPHILS # (AUTO) 0.1 10^3/uL (0.0-0.3); EOSINOPHILS % (AUTO) 1 % (0-10); HEMATOCRIT 26 % (35-52); HEMOGLOBIN 7.5 g/dL (11.5-16.0); LYMPHOCYTES % (AUTO) 14 % (12-44); MEAN CORPUSCULAR HEMOGLOBIN 23 pg (25-34); MEAN CORPUSCULAR HGB CONC 29 g/dL (32-36); MEAN CORPUSCULAR VOLUME 77 fL (80-99); MEAN PLATELET VOLUME 9.9 fL (9.0-12.2); MONOCYTES # (AUTO) 0.8 10^3/uL (0.0-1.0); MONOCYTES % (AUTO) 12 % (0-12); NEUTROPHILS # (AUTO) 4.8 10^3/uL (1.8-7.8); NEUTROPHILS % (AUTO) 72 % (42-75); PLATELET COUNT 237 10^3/uL (130-400); WHITE BLOOD COUNT 6.7 10^3/uL (4.3-11.0)
[2022-03-22 05:03] LABS: POTASSIUM 3.5 MMOL/L (3.6-5.0)
[2022-03-22 05:04] LABS: CALCIUM 8.5 MG/DL (8.5-10.1)
[2022-03-22 05:09] LABS: CREATININE SERUM 1.09 MG/DL (0.60-1.30)
[2022-03-22] MEDS: CATHETER FLUSH 10 ML SYR IVP SCH ×3 (05:24→22:54)
[2022-03-22] MEDS: inSUlin ASPART (NovoLOG) 1 UNIT/0.01 ML (CHARGE PER UNIT) SC SCH ×4 (05:24→21:06)
--- NOTE | 2022-03-22 05:56 | Diagnostic Imaging Report ---
Indication: Anemia Portable chest 5:48 AM Heart size and pulmonary vascularity are within normal limits. Lungs are clear. There are no effusions or pneumothoraces. IMPRESSION: No acute abnormalities in the chest. There is less vascular congestion appear to previous day. Dictated by: Dictated on workstation # [id number]
[2022-03-22] MEDS ORDERED: FUROSEMIDE 40 MG/4 ML INJ (LASIX) IV SCH (06:00)
[2022-03-22] MEDS ORDERED: PANTOPRAZOLE 40 MG (PROTONIX) TAB PO SCH (09:00)
[2022-03-22] MEDS ORDERED: HYDROcodone/APAP 5 MG/325 MG (LORTAB) TAB PO PRN (09:15)
[2022-03-22] MEDS: ACETAMINOPHEN 325 MG TABLET PO PRN (09:18)
[2022-03-22] MEDS: KCL 20 MEQ TAB (K-DUR) PO SCH ×2 (09:18→17:39)
[2022-03-22] MEDS: ASPIRIN E.C. 81 MG (ECOTRIN) TAB PO SCH (09:19)
--- NOTE | 2022-03-22 09:28 | History & Physical ---
History of Present Illness History of Present Illness Reason for visit/HPI This is an 86 year old female patient of Dr. 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 She was brought to the emergency room by her daughter due to worsening shortness of breath. She has a history of congestive heart failure and has had an 8 pound weight gain in the last 2-3 days. She has had worsening shortness of air for the past 2-3 weeks. She uses routine nighttime oxygen but yesterday had to use oxygen continuously due to shortness of air. She was found to be in atrial fibrillation on arrival with acute respiratory distress and decompensated congestive heart failure. She was also found to be anemic with a hemoglobin of 7.7. She was sent home after her last hospital stay in January on eliquis but stopped it due to rectal bleeding. She was given a unit of blood in the emergency room as well as IV lasix. She is currently in the ICU on oxygen and states she is feeling better. Date of Admission Mar 21, 2022 at 21:05 Date Seen by a Provider: Mar 22, 2022 Time Seen by a Provider: 09:23 I consulted on this patient on 03/22/22 09:23 Attending Physician Deangelo Figueroa MD Admitting Physician Admitting Physician: Gracia Dean DO Attending Physician: Deangelo Figueroa MD Consult Allergies and Home Medications Allergies Coded Allergies: No Known Drug Allergies (Unverified , 11/16/19) Patient Home Medication List Home Medication List Reviewed: Yes Apixaban (Eliquis) 5 Mg Tablet, 5 MG PO BID Prescribed by: DEANGELO FIGUEROA on 02/03/22926 Calcium Carbonate (Calcium Antacid) 200 Mg Calcium (500 Mg) Tab.chew, 500 MG PO Q4H PRN for INDIGESTION 1ST LINE Prescribed by: DEANGELO FIGUEROA on 02/03/22926 Carvedilol (Carvedilol) 3.125 Mg Tablet, 3.125 MG PO BID Prescribed by: DEANGELO FIGUEROA on 02/03/22926 Docusate Sodium (Colace) 100 Mg Capsule, 100 MG PO BID, (Reported) Entered as Reported by: EDWIN ANGELA on 09/11/162022 Escitalopram Oxalate (Escitalopram Oxalate) 20 Mg Tablet, 20 MG PO HS, (Reported) Entered as Reported by: SULEIMAN SANCHEZ on 12/11/17 1311 Fluconazole (Fluconazole) 100 Mg Tablet, 100 MG PO DAILY Prescribed by: DEANGELO FIGUEROA on 02/03/22926 Furosemide (Furosemide) 20 Mg Tablet, 40 MG PO 0800,1600, (Reported) Entered as Reported by: ANDRIA ROMERO on 07/06/18 1148 Gabapentin (Gabapentin) 100 Mg Capsule, 100 MG PO TID Prescribed by: DEANGELO FIGUEROA on 02/03/22927 Hydrocodone/Acetaminophen (Hydrocodone-Acetamin 10-325 mg) 10 Mg-325 Mg Tablet, 1 EACH PO QID PRN for PAIN-MODERATE (5-7) Prescribed by: DEANGELO FIGUEROA on 02/03/22927 Insulin Degludec (Tresiba Flextouch U-100) 100 Unit/Ml (3 Ml) Insuln.pen, 40 UNITS SQ HS Prescribed by: DEANGELO FIGUEROA on 02/03/22926 Melatonin (Melatonin) 3 Mg Tablet, 3 MG PO HS PRN for SLEEP Prescribed by: DEANGELO FIGUEROA on 02/03/22926 Omeprazole (Omeprazole) 20 Mg Capsule.dr, 20 MG PO 1200, (Reported) Entered as Reported by: SULEIMAN SANCHEZ on 12/11/17 131 Potassium Chloride (Klor-Con M20) 20 Meq Tab.er.prt, 20 MEQ PO BID WITH MEALS Prescribed by: DEANGELO FIGUEROA on 02/03/22926 Simvastatin (Simvastatin) 20 Mg Tablet, 20 MG PO HS, (Reported) Entered as Reported by: EDWIN ANGELA on 09/11/162022 Past Bsdwapt-Ebzxxr-Gjjbpv Hx Patient Social History Tobacco Use?: No Tobacco type used: Cigarettes Smoking Status: Former Smoker Substance use?: No Alcohol Use?: No Pt feels they are or have been: No Immunizations Up To Date Date of Influenza Vaccine: Oct 19, 2021 First/Initial COVID19 Vaccinat: AUGUST 2020 Second COVID19 Vaccination Sacha: SEPTEMBER 2020 Tetanus Booster (TDap): More Than 5 Years Hepatitis A: Yes Hepatitis B: Yes Date of Pneumonia Vaccine: Aug 08, 2011 Seasonal Allergies Seasonal Allergies: No Current Status Communicates: Verbally Primary Language: Swedish Preferred Spoken Language: Swedish Is interpretation needed?: No Past Medical History Surgeries: Eye Surgery, Hysterectomy, Joint Replacement, Neurological, Orthopedic Currently Using CPAP: No Currently Using BIPAP: No Atrial Fibrillation, Chronic Edema/Swelling, Coronary Artery Disease, High Cho lesterol, Hypertension Neuropathy, Stroke, TIA, Vertigo 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 Sexually Transmitted Disease: No HIV/AIDS: No Renal Failure, UTI-Chronic Gastroesophageal Reflux, Gastrointestinal Bleed, Chronic Constipation, Polyps Degenerate Disk Disease, Arthritis Diabetes, Insulin dep Cataract Loss of Vision: Denies Hearing Impairment: Denies Anxiety, Depression Blood Disorders: Yes (ANEMIA) Adverse Reaction/Blood Tranf: No (N/A) Family Medical History Myocardial infarction 19 MOTHER Heart Disease, Hypertension SOCIAL HISTORY: -SMOKED IN PAST, QUIT 1984 -ETOH--OCCASIONAL USE IN PAST, NONE FOR YEARS -DRUGS--DENIES USE PAST SURGICAL HISTORY: -BILATERAL CATARACTS 01/2019 -PORT PLACED/LATER REMOVED -BILATERAL KNEE REPLACEMENTS -RIGHT KNEE SCOPE/TORN MENISCUS 11/16/[address] BAILEY. -BILATERAL WRIST SURGERY -SURGERY FOR BRAIN ANEURYSM -COLONOSCOPIES/POLYPECTOMIES -EGD'S -APPENDECTOMY -HYSTERECTOMY/BILATERAL SALPINGO-OOPHORECTOMY -BLADDER SURGERY -CARDIAC CATH-NO INTERVENTION Review of Systems Constitutional: weakness EENTM: No see HPI, No no symptoms reported, No ear discharge, No hearing loss, No ear pain, No blurred vision, No double vision, No eye pain, No tearing, No vision loss, No dental problems, No hoarseness, No mouth pain, No mouth swelling, No epistaxis, No nose congestion, No nose pain, No throat pain, No throat swelling, No other Respiratory: dyspnea on exertion, orthopnea, short of breath Cardiovascular: edema Gastrointestinal: other (rectal bleeding after ) Genitourinary: No no symptoms reported, No see HPI, No decreased output, No discharge, No dysuria, No frequency, No hematuria, No hesitancy, No incontinence, No nocturia, No pain, No other Musculoskeletal: joint pain, muscle pain, muscle weakness Skin: No no symptoms reported, No see HPI, No change in color, No change in hair/nails, No dryness, No hx of skin cancer, No lesions, No lumps, No pruritus, No rash, No other Psychiatric/Neurological: Weakness Physical Exam Vital Signs Vital Signs - First Documented 03/21/22 03/21/22 03/21/22 19:45 19:48 21:45 Temp 36.6 Pulse 86 Resp 20 B/P (MAP) 148/68 (94) Pulse Ox 100 O2 Delivery Nasal Cannula O2 Flow Rate 2.00 FiO2 97 Capillary Refill : Less Than 3 Seconds Height, Weight, BMI Height: 5'8.00" Weight: 212lbs. 7.0oz. [id number]; 37.85 BMI Method:Stated General Appearance: Mild Distress HEENT: Normal ENT Inspection Neck: Supple Respiratory: Crackles, Decreased Breath Sounds Cardiovascular: Systolic Murmur, Irregularly Irregular Gastrointestinal: Normal Bowel Sounds, Non Tender, Soft Rectal: Deferred Back: No CVA Tenderness Extremity: Non Tender, No Calf Tenderness, Pedal Edema Neurologic/Psychiatric: Alert, Oriented x3 Skin: Warm/Dry Comments Laboratory Tests 03/21/22 20:13: White Blood Count 6.8, Red Blood Count 3.50L, Hemoglobin 7.7L, Hematocrit 27L, Mean Corpuscular Volume 78L, Mean Corpuscular Hemoglobin 22L, Mean Corpuscular Hemoglobin Concent 28L, Red Cell Distribution Width 17.2H, Platelet Count 236, Mean Platelet Volume 9.9, Immature Granulocyte % (Auto) 0, Neutrophils (%) (Auto) 72, Lymphocytes (%) (Auto) 16, Monocytes (%) (Auto) 10, Eosinophils (%) (Auto) 1, Basophils (%) (Auto) 0, Neutrophils # (Auto) 4.9, Lymphocytes # (Auto) 1.1, Monocytes # (Auto) 0.7, Eosinophils # (Auto) 0.0, Basophils # (Auto) 0.0, Immature Granulocyte # (Auto) 0.0, Erythrocyte Sedimentation Rate 49H, Prothrombin Time 14.9H, INR Comment 1.1, Activated Partial Thromboplast Time 42H , Sodium Level 144, Potassium Level 3.8, Chloride Level 106, Carbon Dioxide Level 24, Anion Gap 14, Blood Urea Nitrogen 29H, Creatinine 1.04, Estimat Glomerular Filtration Rate 53, BUN/Creatinine Ratio 28, Glucose Level 115H, Calcium Level 9.0, Corrected Calcium 9.3, Magnesium Level 2.1, Total Bilirubin 0.3, Aspartate Amino Transf (AST/SGOT) 25, Alanine Aminotransferase (ALT/SGPT) 14, Alkaline Phosphatase 122, Total Creatine Kinase 83, Creatine Kinase MB 4.7, Myoglobin 74.9, Troponin I < 0.028, C-Reactive Protein High Sensitivity 1.90H, B-Type Natriuretic Peptide 362.9H, Total Protein 7.1, Albumin 3.6, Influenza Type A (RT-PCR) Not Detected, Influenza Type B (RT-PCR) Not Detected, SARS-CoV-2 RNA (RT-PCR) Not Detected 03/21/22 20:16: Glucometer 116H 03/21/22 22:55: Troponin I 0.035H 03/22/22 01:50: Troponin I < 0.028, Iron Level [Pending], Total Iron Binding Capacity [Pending], Unsaturated Iron Binding Capacity [Pending], Transferrin % Saturation [Pending], Ferritin [Pending], Vitamin B1 Level [Pending], Vitamin B12 Level [Pending] 03/22/22 04:42: White Blood Count 6.7, Red Blood Count 3.33L, Hemoglobin 7.5L, Hematocrit 26L, Mean Corpuscular Volume 77L, Mean Corpuscular Hemoglobin 23L, Mean Corpuscular Hemoglobin Concent 29L, Red Cell Distribution Width 17.1H, Platelet Count 237, Mean Platelet Volume 9.9, Immature Granulocyte % (Auto) 0, Neutrophils (%) (Auto) 72, Lymphocytes (%) (Auto) 14, Monocytes (%) (Auto) 12, Eosinophils (%) (Auto) 1, Basophils (%) (Auto) 0, Neutrophils # (Auto) 4.8, Lymphocytes # (Auto) 1.0, Monocytes # (Auto) 0.8, Eosinophils # (Auto) 0.1, Basophils # (Auto) 0.0, Immature Granulocyte # (Auto) 0.0, Sodium Level 143, Potassium Level 3.5L, Chloride Level 107, Carbon Dioxide Level 26, Anion Gap 10, Blood Urea Nitrogen 26H, Creatinine 1.09, Estimat Glomerular Filtration Rate 50, BUN/Creatinine Ratio 24, Glucose Level 158H, Calcium Level 8.5, B-Type Natriuretic Peptide 354.8H Assessment/Plan Assessment and Plan 1. Acute Respiratory Distress--currently on oxygen at 2L NC, start SVNs with duoneb 2. 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 Acute on Chronic Anemia--given 1u pRBCs on admit, will repeat 1u pRBCs today and iron studies are pending, did discuss GI blood loss as possibility with daughter and she says she will discuss how aggressive of workup the patient wants with her, will check hemoccult but daughter reports that she had rectal bleeding after last discharge which is why she stopped eliquis, add protonix BID for GI etiology 4. Atrial Fibrillation--has been off eliquis in past due to recurrent falls and recently stopped due to rectal bleeding 5. DMII--on accuchecks with SSI, daughter states her blood sugar was low yesterday 6. GER--has not had a formal sleep study but was noted on last hospital stay however patient states the BIPAP drove her crazy last time so she does not think she could tolerate the machine 7. Debility--will start PT/OT once stable 8. Neuropathy--resume gabapentin Admission Diagnosis Admission Status: Inpatient Order (span 2 midnights) Reason for Inpatient Admission: Will need at least 48hrs of diuresis/med adjustments GRACIA DEAN DO Mar 22, 2022 09:28
[2022-03-22] MEDS ORDERED: GABAPENTIN 100 MG (NEURONTIN) CAP PO NR (09:30)
[2022-03-22] MEDS ORDERED: FUROSEMIDE 20 MG (LASIX) TAB PO NR (09:30)
[2022-03-22] MEDS ORDERED: NS IV 500 ML 500 ML IV SCH (09:30)
[2022-03-22] MEDS ORDERED: RT-ALBUTEROL/IPRATROPIUM 3 ML (DUONEB) VIAL INH SCH (10:00)
--- NOTE | 2022-03-22 11:22 | Consultation-Cardiology ---
HPI-Cardiology Cardiology Consultation: Date of Consultation 03/22/22 Time Seen by a Provider: 09:00 Date of Admission Attending Physician Deangelo Figueroa MD Admitting Physician Admitting Physician: Megan Dean DO Attending Physician: Deangelo Figueroa MD Consulting Physician HARITHA ESPARZA MD, MA, FACP, FACC, FSCAI, CCDS HPI: Chief Complaint: Shortness of breath 86 y o woman with increasing shortness of breath and considerable wgt gain over the last 1-2 weeks. She does not report cp or palp or syncope. Notes some leg swelling. No n/v/d. No fever or chills. Gen weakness and malaise are present Review of Systems-Cardiology Review of Systems Constitutional: As described under HPI Eyes: No vision change Ears/Nose/Throat: No ear discharge, No nasal drainage, No recent hearing loss Respiratory: As described under HPI Cardiovascular: As described under HPI Gastrointestinal: No vomiting Genitourinary: No dysuria, No hematuria, No urine frequency changes Musculoskeletal: back pain (chronic) Skin: No rash, No ulcerations Psychiatric/Neurological: No seizure, No focal weakness, No syncope Hematologic: No bleeding abnormalities KXO-Zmqldl-Gsrzxr Hx Patient Social History Smoking Status: Former Smoker 2nd Hand Smoke Exposure: No Have you traveled recently?: No Alcohol Use?: No Pt feels they are or have been: No Tobacco type used: Cigarettes Immunizations Up To Date Tetanus Booster (TDap): Unknown Date of Pneumonia Vaccine: Aug 08, 2011 Date of Influenza Vaccine: Oct 19, 2021 Past Medical History PMH As described under Assessment. Family Medical History Family History: Myocardial infarction 19 MOTHER Allergies and Home Medications Allergies Coded Allergies: No Known Drug Allergies (Unverified , 11/16/19) Patient Home Medication List Home Medication List Reviewed: Yes Apixaban (Eliquis) 5 Mg Tablet, 5 MG PO BID Prescribed by: DEANGELO FIGUEROA on 02/03/22926 Calcium Carbonate (Calcium Antacid) 200 Mg Calcium (500 Mg) Tab.chew, 500 MG PO Q4H PRN for INDIGESTION 1ST LINE Prescribed by: DEANGELO FIGUEROA on 02/03/22926 Carvedilol (Carvedilol) 3.125 Mg Tablet, 3.125 MG PO BID Prescribed by: DEANGELO FIGUEROA on 02/03/22926 Docusate Sodium (Colace) 100 Mg Capsule, 100 MG PO BID, (Reported) Entered as Reported by: EDWIN ANGELA on 09/11/162022 Escitalopram Oxalate (Escitalopram Oxalate) 20 Mg Tablet, 20 MG PO HS, (Reported) Entered as Reported by: SULEIMAN SANCHEZ on 12/11/17 131 Fluconazole (Fluconazole) 100 Mg Tablet, 100 MG PO DAILY Prescribed by: DEANGELO FIGUEROA on 02/03/22926 Furosemide (Furosemide) 20 Mg Tablet, 40 MG PO 0800,1600, (Reported) Entered as Reported by: ANDRIA ROMERO on 07/06/18 114 Gabapentin (Gabapentin) 100 Mg Capsule, 100 MG PO TID Prescribed by: DEANGELO FIGUEROA on 02/03/22927 Hydrocodone/Acetaminophen (Hydrocodone-Acetamin 10-325 mg) 10 Mg-325 Mg Tablet, 1 EACH PO QID PRN for PAIN-MODERATE (5-7) Prescribed by: DEANGELO FIGUEROA on 02/03/22927 Insulin Degludec (Tresiba Flextouch U-100) 100 Unit/Ml (3 Ml) Insuln.pen, 40 UNITS SQ HS Prescribed by: DEANGELO FIGUEROA on 02/03/22926 Melatonin (Melatonin) 3 Mg Tablet, 3 MG PO HS PRN for SLEEP Prescribed by: DEANGELO FIGUEROA on 02/03/22926 Omeprazole (Omeprazole) 20 Mg Capsule.dr, 20 MG PO 1200, (Reported) Entered as Reported by: SULEIMAN SANCHEZ on 12/11/17 131 Potassium Chloride (Klor-Con M20) 20 Meq Tab.er.prt, 20 MEQ PO BID WITH MEALS Prescribed by: DEANGELO FIGUEROA on 02/03/22926 Simvastatin (Simvastatin) 20 Mg Tablet, 20 MG PO HS, (Reported) Entered as Reported by: EDWIN ANGELA on 09/11/162022 Physical Exam-Cardiology Physical Exam Vital Signs/I&O 03/21/22 03/21/22 03/22/22 03/22/22 23:30 23:44 00:00 00:00 Temp 36.5 Pulse 74 67 Resp 14 21 B/P (MAP) 109/70 (83) Pulse Ox 99 97 99 O2 Delivery Nasal Cannula Nasal Cannula Nasal Cannula O2 Flow Rate 2.00 2.00 2.00 03/22/22 03/22/22 03/22/22 03/22/22 00:06 00:15 00:30 00:45 Temp 37.1 37.1 37.0 37.1 Pulse 78 71 76 70 Resp 20 22 22 20 B/P (MAP) 109/70 104/56 113/50 126/65 Pulse Ox 96 97 94 95 O2 Delivery Nasal Cannula O2 Flow Rate 2.00 03/22/22 03/22/22 03/22/22 03/22/22 01:00 01:00 01:00 01:15 Temp 37.1 37.1 Pulse 72 66 67 71 Resp 20 17 18 B/P (MAP) 126/65 122/71 (88) 130/49 Pulse Ox 97 98 92 O2 Delivery Nasal Cannula Nasal Cannula Nasal Cannula O2 Flow Rate 2.00 2.00 2.00 03/22/22 03/22/22 03/22/22 03/22/22 01:30 01:45 02:00 02:00 Temp 37.0 37.0 Pulse 74 69 74 76 Resp 18 18 17 18 B/P (MAP) 104/74 133/66 127/79 (95) 109/89 Pulse Ox 93 94 96 97 O2 Delivery Nasal Cannula Nasal Cannula O2 Flow Rate 2.00 2.00 03/22/22 03/22/22 03/22/22 03/22/22 02:15 02:30 02:45 03:00 Temp 37.2 37.2 37.2 37.2 Pulse 77 70 71 70 Resp 18 17 15 17 B/P (MAP) 127/79 116/63 125/74 138/73 Pulse Ox 97 96 98 97 O2 Delivery Nasal Cannula O2 Flow Rate 2.00 03/22/22 03/22/22 03/22/22 03/22/22 03:13 04:00 07:00 07:50 Temp 36.5 36.9 Pulse 86 69 77 Resp 24 19 B/P (MAP) 118/60 (79) 123/65 (84) Pulse Ox 95 96 O2 Delivery Nasal Cannula Nasal Cannula O2 Flow Rate 2.00 1.50 03/22/22 08:00 Pulse 71 Resp 20 B/P (MAP) 122/62 (82) Pulse Ox 97 O2 Delivery Nasal Cannula O2 Flow Rate 2.00 03/22/22 00:00 Intake Total 50 ml Output Total 1150 ml Balance -1100 ml Capillary Refill : Less Than 3 Seconds Constitutional: AAO x 3, well-developed, well-nourished HEENT: EOMI, hearing is well preserved; No xanthelasmas are seen Neck: carotid pulses are 2 + bilaterally, with good upstrokes Respiratory: No accessory muscle use; chest expansion is symmetric, other (basal coarse and fine crackles) Cardiovascular: irregularly irregular, S1 and S2, systolic murmur (soft LIZA at card base) Gastrointestinal: No tender; soft; No guarding, No rebound; audible bowel sounds Extremities: No clubbing, No cyanosis, No significant edema Neurologic/Psychiatric: oriented x 3, other (moves all limbs equally) Skin: No rash on exposed areas, No ulcerations on exposed areas Data Review Labs Laboratory Tests 03/21/22 20:13: White Blood Count 6.8, Red Blood Count 3.50L, Hemoglobin 7.7L, Hematocrit 27L, M demarcus Corpuscular Volume 78L, Mean Corpuscular Hemoglobin 22L, Mean Corpuscular Hemoglobin Concent 28L, Red Cell Distribution Width 17.2H, Platelet Count 236, Mean Platelet Volume 9.9, Immature Granulocyte % (Auto) 0, Neutrophils (%) (Auto) 72, Lymphocytes (%) (Auto) 16, Monocytes (%) (Auto) 10, Eosinophils (%) (Auto) 1, Basophils (%) (Auto) 0, Neutrophils # (Auto) 4.9, Lymphocytes # (Auto) 1.1, Monocytes # (Auto) 0.7, Eosinophils # (Auto) 0.0, Basophils # (Auto) 0.0, Immature Granulocyte # (Auto) 0.0, Erythrocyte Sedimentation Rate 49H, Prothrombin Time 14.9H, INR Comment 1.1, Activated Partial Thromboplast Time 42H , Sodium Level 144, Potassium Level 3.8, Chloride Level 106, Carbon Dioxide Level 24, Anion Gap 14, Blood Urea Nitrogen 29H, Creatinine 1.04, Estimat Glomerular Filtration Rate 53, BUN/Creatinine Ratio 28, Glucose Level 115H, Calcium Level 9.0, Corrected Calcium 9.3, Magnesium Level 2.1, Total Bilirubin 0.3, Aspartate Amino Transf (AST/SGOT) 25, Alanine Aminotransferase (ALT/SGPT) 14, Alkaline Phosphatase 122, Total Creatine Kinase 83, Creatine Kinase MB 4.7, Myoglobin 74.9, Troponin I < 0.028, C-Reactive Protein High Sensitivity 1.90H, B-Type Natriuretic Peptide 362.9H, Total Protein 7.1, Albumin 3.6, Influenza Type A (RT-PCR) Not Detected, Influenza Type B (RT-PCR) Not Detected, SARS-CoV-2 RNA (RT-PCR) Not Detected 03/21/22 20:16: Glucometer 116H 03/21/22 22:55: Troponin I 0.035H 03/22/22 01:50: Troponin I < 0.028 03/22/22 04:42: White Blood Count 6.7, Red Blood Count 3.33L, Hemoglobin 7.5L, Hematocrit 26L, Mean Corpuscular Volume 77L, Mean Corpuscular Hemoglobin 23L, Mean Corpuscular H emoglobin Concent 29L, Red Cell Distribution Width 17.1H, Platelet Count 237, Mean Platelet Volume 9.9, Immature Granulocyte % (Auto) 0, Neutrophils (%) (Auto) 72, Lymphocytes (%) (Auto) 14, Monocytes (%) (Auto) 12, Eosinophils (%) (Auto) 1, Basophils (%) (Auto) 0, Neutrophils # (Auto) 4.8, Lymphocytes # (Auto) 1.0, Monocytes # (Auto) 0.8, Eosinophils # (Auto) 0.1, Basophils # (Auto) 0.0, Immature Granulocyte # (Auto) 0.0, Sodium Level 143, Potassium Level 3.5L, Chloride Level 107, Carbon Dioxide Level 26, Anion Gap 10, Blood Urea Nitrogen 26H, Creatinine 1.09, Estimat Glomerular Filtration Rate 50, BUN/Creatinine Ratio 24, Glucose Level 158H, Calcium Level 8.5, B-Type Natriuretic Peptide 354.8H 03/22/22 10:56: Glucometer 135H Laboratory Tests 03/21/22 20:13 03/22/22 04:42 A/P-Cardiology Assessment/Admission Diagnosis Ac resp failure, multifactorial: ac on ch CHF & cor pulmonale, marked anemia, probable obesity-hypovent/GER Acute on chronic CHF and cor pulmonale - 2D Echo done 01/27/[address] Barker showing mild diffuse hypokinesia with EF 45%. Dilated right and left atrium, moderate MR, severe TR. PA 75-80mmHg. Severe pulmonary hypertension with dilated right heart chambers. Significant deterioration compared to the previous echo from 2020. Marked anemia of undetermined etiology - GI bleed suspected, oral anticoag withheld, treated blood transfusion on 03/22/22 Chronic permanent atrial fibrillation - twelve-lead EKG was done showing atrial fibrillation with right bundle branch block. - [id number] score 4, yearly risk of stroke without oral anticoagulation is 4%. - Off Eliquis 5mg BID because suspected bleeding leading to anemia Pulmonary HTN - likely d/t obesity hypoventilation syndrome/GER Generalized weakness - continue PT/OT Hypertension - controlled Hyperlipidemia - maintained on statin CKD 3a - monitored and managed by the Med svce DM II - management per Medical services Peripheral neuropathy Chronic pain syndrome Discussion and Recomendations * Diuretics as needed and as tolerated * Blood transfusion * Replenish electrolytes * Med svce to eval for GI bleed or other occult bleed. OAC being held for now * Advise sleep studies as outpt * I discussed her CV issues and our CV treatment plan in detail with the patient and her daughter HARITHA ESPARZA MD FACP FAC CCDS Mar 22, 2022 11:22
[2022-03-22] MEDS ORDERED: KCL 20 MEQ TAB (K-DUR) PO NR (12:00)
[2022-03-22] MEDS: GABAPENTIN 100 MG (NEURONTIN) CAP PO SCH ×2 (12:11→20:03)
[2022-03-22] MEDS ORDERED: RT-ALBUTEROL/IPRATROPIUM 3 ML (DUONEB) VIAL INH PRN (15:45)
[2022-03-22 16:43] LABS: HEMOGLOBIN 8.8 g/dL (11.5-16.0)
[2022-03-22] MEDS: RT-ALBUTEROL/IPRATROPIUM 3 ML (DUONEB) VIAL INH SCH ×2 (18:52→21:46)
[2022-03-22] MEDS: AtorvaSTATin TABLET 10 MG TABLET PO SCH (20:03)
[2022-03-22] MEDS: PANTOPRAZOLE 40 MG (PROTONIX) TAB PO SCH (20:03)
[2022-03-23] VITALS (7 sets, daily range): BP systolic 112–136; BP diastolic 57–78
[2022-03-23] MEDS: RT-ALBUTEROL/IPRATROPIUM 3 ML (DUONEB) VIAL INH SCH ×5 (02:55→22:02)
[2022-03-23 04:09] LABS: HEMATOCRIT 29 % (35-52); HEMOGLOBIN 8.6 g/dL (11.5-16.0); MEAN CORPUSCULAR HEMOGLOBIN 23 pg (25-34); MEAN CORPUSCULAR HGB CONC 30 g/dL (32-36); MEAN CORPUSCULAR VOLUME 78 fL (80-99); MEAN PLATELET VOLUME 10.3 fL (9.0-12.2); PLATELET COUNT 233 10^3/uL (130-400); WHITE BLOOD COUNT 9.4 10^3/uL (4.3-11.0)
[2022-03-23 04:32] LABS: POTASSIUM 3.8 MMOL/L (3.6-5.0)
[2022-03-23 04:33] LABS: CALCIUM 8.6 MG/DL (8.5-10.1)
[2022-03-23 04:37] LABS: CREATININE SERUM 1.13 MG/DL (0.60-1.30)
[2022-03-23 04:39] LABS: MAGNESIUM 2.1 MG/DL (1.6-2.4)
[2022-03-23] MEDS: GABAPENTIN 100 MG (NEURONTIN) CAP PO SCH ×3 (08:31→20:23)
[2022-03-23] MEDS: inSUlin ASPART (NovoLOG) 1 UNIT/0.01 ML (CHARGE PER UNIT) SC SCH ×4 (08:31→20:23)
[2022-03-23] MEDS: FUROSEMIDE 20 MG (LASIX) TAB PO SCH (08:31)
[2022-03-23] MEDS: PANTOPRAZOLE 40 MG (PROTONIX) TAB PO SCH ×2 (08:31→20:23)
[2022-03-23] MEDS: KCL 20 MEQ TAB (K-DUR) PO SCH ×2 (08:31→18:10)
[2022-03-23] MEDS: ASPIRIN E.C. 81 MG (ECOTRIN) TAB PO SCH (08:31)
[2022-03-23] MEDS: CATHETER FLUSH 10 ML SYR IVP SCH ×4 (08:31→20:24)
--- NOTE | 2022-03-23 11:38 | Progress Note ---
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 Sitting in chair sleeping. Objective Exam Vital Signs Date Time Temp Pulse Resp B/P (MAP) Pulse Ox O2 Delivery O2 Flow Rate FiO2 03/23/22 08:15 67 13 135/68 (90) 95 Nasal Cannula 2.00 03/23/22 08:00 95 Nasal Cannula 2.00 03/23/22 08:00 36.3 03/23/22 08:00 71 14 135/68 (90) 97 Nasal Cannula 3.00 03/23/22 07:46 96 Nasal Cannula 2.00 94 03/23/22 07:00 75 03/23/22 04:00 36.1 03/23/22 04:00 66 14 120/70 (87) 93 Nasal Cannula 1.50 03/23/22 02:55 96 Nasal Cannula 2.00 03/23/22 01:00 88 03/23/22 00:00 79 30 115/63 (80) 95 Nasal Cannula 3.00 03/23/22 00:00 79 30 112/57 (75) 95 Nasal Cannula 1.50 03/23/22 00:00 36.4 03/22/22 23:30 94 Nasal Cannula 3.00 03/22/22 21:46 94 Nasal Cannula 2.00 03/22/22 20:00 36.1 83 20 140/76 (97) 94 Nasal Cannula 1.50 03/22/22 20:00 76 12 138/77 (97) 95 Nasal Cannula 3.00 03/22/22 19:00 75 03/22/22 18:52 94 Nasal Cannula 2.00 03/22/22 16:00 74 19 120/74 (89) 94 Nasal Cannula 2.00 03/22/22 15:52 36.5 77 12 130/72 (91) 97 Nasal Cannula 1.50 03/22/22 15:38 93 Nasal Cannula 2.00 03/22/22 15:30 84 17 111/71 (84) 97 Nasal Cannula 2.00 03/22/22 15:15 77 17 105/59 (74) 98 Nasal Cannula 2.00 03/22/22 15:00 82 16 123/65 (84) 96 Nasal Cannula 2.00 03/22/22 14:42 36.7 65 16 117/68 96 High Flow N/C 1.50 03/22/22 12:43 73 03/22/22 12:16 36.6 73 16 154/80 98 Nasal Cannula 1.50 03/22/22 12:02 36.7 68 18 141/79 96 Nasal Cannula 1.50 03/22/22 12:00 67 20 141/79 (99) 95 Nasal Cannula 2.00 03/22/22 11:46 36.5 82 15 141/70 (93) 98 Nasal Cannula 1.50 I & O 03/23/22 07:00 Intake Total 1795 ml Output Total 2325 ml Balance -530 ml Capillary Refill : Less Than 3 Seconds General Appearance: No Apparent Distress Respiratory: Lungs Clear Cardiovascular: Regular Rate, Rhythm, Systolic Murmur Gastrointestinal: normal bowel sounds, non tender, soft Neurologic/Psychiatric: Alert, Oriented x3 Results Lab Laboratory Tests 03/22/22 15:41: Glucometer 174H 03/22/22 16:34: Hemoglobin 8.8L, Hematocrit 30L 03/22/22 20:56: Glucometer 261H 03/23/22 03:25: Hemoglobin 8.6L, Hematocrit 29L, White Blood Count 9.4, Red Blood Count 3.76L, Mean Corpuscular Volume 78L, Mean Corpuscular Hemoglobin 23L, Mean Corpuscular Hemoglobin Concent 30L, Red Cell Distribution Width 17.3H, Platelet Count 233, Mean Platelet Volume 10.3, Sodium Level 142, Potassium Level 3.8, Chloride Level 106, Carbon Dioxide Level 26, Anion Gap 10, Blood Urea Nitrogen 26H, Creatinine 1.13, Estimat Glomerular Filtration Rate 48, BUN/Creatinine Ratio 23, Glucose Level 178H, Calcium Level 8.6, Magnesium Level 2.1, Thyroid Stimulating Hormone (TSH) 3.73 03/23/22 06:07: Glucometer 166H 03/23/22 10:13: Glucometer 174H Assessment/Plan Assessment/Plan Assess & Plan/Chief Complaint 1. Acute Respiratory Distress--improved, on oxygen via NC 2. 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 Atrial Fibrillation--rated controlled, eliquis on hold due to anemia and rectal bleeding after last hospital stay 4. Acute Anemia--improved post transfusion--got 2u pRBCs, will start iron tomorrow as iron/ferritin and TIBC are low, will also proceed with surgery evaluation for possible EGD and colonoscopy 5. DMII--on accuchecks with SSI 6. Debility--will need PT/OT Clinical Quality Measures Admission Status Admission Dx 1. Acute Respiratory Distress--currently on oxygen at 2L NC, start SVNs with duoneb 2. 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 Acute on Chronic Anemia--given 1u pRBCs on admit, will repeat 1u pRBCs today and iron studies are pending, did discuss GI blood loss as possibility with daughter and she says she will discuss how aggressive of workup the patient wants with her, will check hemoccult but daughter reports that she had rectal bleeding after last discharge which is why she stopped eliquis, add protonix BID for GI etiology 4. Atrial Fibrillation--has been off eliquis in past due to recurrent falls and recently stopped due to rectal bleeding 5. DMII--on accuchecks with SSI, daughter states her blood sugar was low yesterday 6. GER--has not had a formal sleep study but was noted on last hospital stay however patient states the BIPAP drove her crazy last time so she does not think she could tolerate the machine 7. Debility--will start PT/OT once stable 8. Neuropathy--resume gabapentin GRACIA PINEDA DO Mar 23, 2022 11:38
--- NOTE | 2022-03-23 16:13 | Progress Note - Cardiology ---
Cardiology SOAP Progress Note Subjective: Gen weakness and malaise present Shortness of breath is improving No n/v/d No cp or palp or syncope Objective: I&O/Vital Signs 03/23/22 03/23/22 03/23/22 03/23/22 07:00 07:46 08:00 08:00 Temp 36.3 Pulse 75 71 Resp 14 B/P (MAP) 135/68 (90) Pulse Ox 96 97 O2 Delivery Nasal Cannula Nasal Cannula O2 Flow Rate 2.00 3.00 FiO2 94 03/23/22 03/23/22 03/23/22 03/23/22 08:00 08:15 11:41 11:44 Temp 36.3 Pulse 67 56 Resp 13 15 B/P (MAP) 135/68 (90) 124/69 (87) Pulse Ox 95 95 96 O2 Delivery Nasal Cannula Nasal Cannula Nasal Cannula O2 Flow Rate 2.00 2.00 2.00 03/23/22 03/23/22 12:43 15:20 Temp 36.5 Pulse 72 70 Resp 16 B/P (MAP) 132/76 (94) Pulse Ox 98 O2 Delivery Nasal Cannula O2 Flow Rate 2.00 03/23/22 00:00 Intake Total 1495 ml Output Total 2000 ml Balance -505 ml Weight (Pounds): 212 Weight (Ounces): 7.0 Weight (Calculated Kilograms): 96.188829 Constitutional: AAO x 3, well-developed, well-nourished Respiratory: No accessory muscle use; chest expansion is symmetric, other (basal coarse and fine crackles) Cardiovascular: irregularly irregular, S1 and S2, systolic murmur (soft LIZA at card base) Gastrointestional: No tender; soft; No guarding, No rebound; audible bowel sounds Extremities: No clubbing, No cyanosis, No significant edema Neurologic/Psychiatric: oriented x 3, other (moves all limbs equally) Skin: No rash on exposed areas, No ulcerations on exposed areas Results/Procedures: Labs Laboratory Tests 03/22/22 16:34: Hemoglobin 8.8L, Hematocrit 30L 03/22/22 20:56: Glucometer 261H 03/23/22 03:25: Hemoglobin 8.6L, Hematocrit 29L, White Blood Count 9.4, Red Blood Count 3.76L, Mean Corpuscular Volume 78L, Mean Corpuscular Hemoglobin 23L, Mean Corpuscular Hemoglobin Concent 30L, Red Cell Distribution Width 17.3H, Platelet Count 233, Mean Platelet Volume 10.3, Sodium Level 142, Potassium Level 3.8, Chloride Level 106, Carbon Dioxide Level 26, Anion Gap 10, Blood Urea Nitrogen 26H, Creatinine 1.13, Estimat Glomerular Filtration Rate 48, BUN/Creatinine Ratio 23, Glucose Level 178H, Calcium Level 8.6, Magnesium Level 2.1, Thyroid Stimulating Hormone (TSH) 3.73 03/23/22 06:07: Glucometer 166H 03/23/22 10:13: Glucometer 174H 03/23/22 15:25: Glucometer 136H Laboratory Tests 03/21/22 20:13 03/22/22 04:42 03/22/22 16:34 03/23/22 03:25 A/P: Assessment: Ac resp failure, multifactorial: ac on ch CHF & cor pulmonale, marked anemia, probable obesity-hypovent/GER Acute on chronic CHF and cor pulmonale - 2D Echo done 01/27/[address] Barker showing mild diffuse hypokinesia with EF 45%. Dilated right and left atrium, moderate MR, severe TR. PA 75-80mmHg. Severe pulmonary hypertension with dilated right heart chambers. Significant deterioration compared to the previous echo from 2020. Marked anemia of undetermined etiology - GI bleed suspected, oral anticoag withheld, treated blood transfusion on 03/22/22 Chronic permanent atrial fibrillation - twelve-lead EKG was done showing atrial fibrillation with right bundle branch block. - [id number] score 4, yearly risk of stroke without oral anticoagulation is 4%. - Off Eliquis 5mg BID because suspected bleeding leading to anemia Pulmonary HTN - likely d/t obesity hypoventilation syndrome/GER Generalized weakness - continue PT/OT Hypertension - controlled Hyperlipidemia - maintained on statin CKD 3a - monitored and managed by the Med svce DM II - management per Medical services Peripheral neuropathy Chronic pain syndrome Plan: * Diuretics as needed and as tolerated * Blood transfusion given on 03/22/22 * Replenish electrolytes * Med svce to eval for GI bleed or other occult bleed. OAC being held for now * Advise sleep studies as outpt * Monitor labs HARITHA ESPARZA MD FACP FAC CCDS Mar 23, 2022 16:13
--- NOTE | 2022-03-23 19:39 | Progress Note-Pre Operative ---
Pre-Operative Progress Note Date of Available H&P: Mar 23, 2022 Date H&P Reviewed: Mar 23, 2022 Time H&P Reviewed: 18:00 History & Physical: No changes noted Pre-Operative Diagnosis: symptomatic anemia with GI bleed LISSA GENAO MD Mar 23, 2022 19:39
[2022-03-23] MEDS: AtorvaSTATin TABLET 10 MG TABLET PO SCH (20:23)
--- NOTE | 2022-03-23 20:35 | CONSULTATION REPORT ---
DATE OF SERVICE: 03/23/2022 ATTENDING PRIMARY CARE PHYSICIAN: Amber Figueroa MD HISTORY OF PRESENT ILLNESS: The patient is an 86-year-old female who was brought to the Emergency Department for shortness of breath. She does have a history of congestive heart failure and states that she had approximately an 8-pound weight gain in the past 2-3 days. She is on oxygen nocturnally; however, has had to use oxygen continuously due to her shortness of breath. She also does have a history of atrial fibrillation as well as congestive heart failure. The patient was also found to be anemic with a hemoglobin of 7.7. Previous laboratory work did show that her hemoglobin was in the normal range at approximately 10-12. The patient was on anticoagulation with Eliquis; however, she states that she developed rectal bleeding and did discontinue the medication on her own. Upon further questioning, she does report a history of gastroesophageal reflux disease. She has had a colonoscopy before. Polyps were identified, biopsied, and found to be benign; however, she cannot recall when her last one was. She states that her rectal bleeding is usually red to maroon color in nature. She does not report any abdominal pain. PAST MEDICAL HISTORY: Atrial fibrillation, bilateral lower extremity edema, coronary artery disease, hypercholesterolemia, hypertension, neuropathy, history of stroke and TIA, gastroesophageal reflux disease, history of gastrointestinal bleeding, chronic constipation, insulin-dependent diabetes, bilateral cataract, anxiety and depression. PAST SURGICAL HISTORY: Total hysterectomy, bilateral eye surgery, joint replacement surgery. Bilateral wrist surgery, surgery for brain aneurysm, appendectomy, total hysterectomy, bladder surgery, bilateral total knee arthroplasty. ALLERGIES: No known drug allergies. REGULAR MEDICATIONS: Apixaban 5 mg b.i.d., carvedilol 3.125 mg b.i.d., Colace 100 mg b.i.d., escitalopram 20 mg daily, fluconazole 100 mg daily, furosemide 40 mg daily, gabapentin 100 mg t.i.d., hydrocodone p.r.n., Tresiba insulin units daily, omeprazole 20 mg daily, potassium 20 mEq b.i.d., simvastatin 20 mg b.i.d. SOCIAL HISTORY: Previous smoker, negative alcohol. FAMILY HISTORY: Mother, heart disease, hypertension. VITAL SIGNS: Temperature 36.9, blood pressure 128/78, pulse of 87, respirations 20, pulse ox 94% on 2 liters nasal cannula. REVIEW OF SYSTEMS: Well-nourished female, currently in no acute distress. She is not experiencing shortness of breath or difficulty breathing. No cough or sputum production. No chest pain, palpitations or diaphoresis. No nausea or vomiting; however, she does have epigastric burning sensation and is on omeprazole 20 mg daily; however, this has become ineffective. She also does have a history of constipation and states that she has noticed intermittent rectal bleeding, which was red in color, also maroon. She has had a colonoscopy before colonoscopies done before in the past and was found to have polyps, which were biopsied and found to be benign; however, she cannot recall when her last colonoscopy was. No fever, chills, no recent inadvertent weight loss. PHYSICAL EXAM: CHEST: Few scattered rales and rhonchi bilaterally. HEART: Regular, no murmurs. EXTREMITIES: Pulse 103, bilateral lower extremity edema. Negative Homans sign. HEENT: No scleral icterus or cervical lymphadenopathy. ABDOMEN: Soft, nontender, nondistended. SKIN: Warm and dry. LABORATORY DATA: WBC 9.4, hemoglobin 8.6, hematocrit 29, platelets 233. BUN 26, creatinine 1.13, glucose 136. Liver function enzymes normal. ASSESSMENT AND PLAN: An 87-year-old female with multiple medical problems including coronary artery disease, congestive heart failure, history of atrial fibrillation and diabetes. She had worsening shortness of breath as well as fatigue and was found to be significantly anemic, which was well out of her norm at 7.7. Since being admitted, she has been given 2 units of packed red blood cells and her hemoglobin did go up appropriately. The patient does have signs and symptoms of gastroesophageal reflux disease as well as rectal bleeding as well as history of polyps. The patient is also on Atrovent. There is also on anticoagulation with Eliquis due to her atrial fibrillation as well as coronary artery disease; however, has discontinued this on her own in the past due to the rectal bleeding. Recommendation on this admission is to proceed with an EGD and colonoscopy, which the patient and family are amenable to and we will schedule these procedures on this admission. Job ID: [id number] DocumentID: [id number] Dictated Date: 03/23/2022 19:33:31 [employer] Saw Operator Date: 03/23/2022 20:33:00 Dictated By: LISSA GENAO MD
[2022-03-23] MEDS: ALPRAZolam 1 MG (XANAX) TAB PO PRN (23:01)
[2022-03-24] MEDS ORDERED: APIXABAN 2.5 MG (ELIQUIS) TABLET PO SCH
[2022-03-24] MEDS: RT-ALBUTEROL/IPRATROPIUM 3 ML (DUONEB) VIAL INH SCH ×6 (03:40→21:46)
[2022-03-24 04:00] VITALS: BP 135/80
[2022-03-24 05:04] LABS: BASOPHILS % (AUTO) 0 % (0-10); EOSINOPHILS # (AUTO) 0.3 10^3/uL (0.0-0.3); EOSINOPHILS % (AUTO) 4 % (0-10); HEMATOCRIT 31 % (35-52); HEMOGLOBIN 8.9 g/dL (11.5-16.0); LYMPHOCYTES # (AUTO) 1.3 10^3/uL (1.0-4.0); LYMPHOCYTES % (AUTO) 19 % (12-44); MEAN CORPUSCULAR HEMOGLOBIN 23 pg (25-34); MEAN CORPUSCULAR HGB CONC 29 g/dL (32-36); MEAN CORPUSCULAR VOLUME 80 fL (80-99); MEAN PLATELET VOLUME 9.8 fL (9.0-12.2); MONOCYTES # (AUTO) 0.8 10^3/uL (0.0-1.0); MONOCYTES % (AUTO) 11 % (0-12); NEUTROPHILS # (AUTO) 4.4 10^3/uL (1.8-7.8); NEUTROPHILS % (AUTO) 66 % (42-75); PLATELET COUNT 212 10^3/uL (130-400); WHITE BLOOD COUNT 6.8 10^3/uL (4.3-11.0)
[2022-03-24 05:14] LABS: CALCIUM 8.7 MG/DL (8.5-10.1)
[2022-03-24 05:18] LABS: CREATININE SERUM 1.08 MG/DL (0.60-1.30)
[2022-03-24] MEDS: CATHETER FLUSH 10 ML SYR IVP SCH ×3 (06:05→23:02)
[2022-03-24] MEDS: inSUlin ASPART (NovoLOG) 1 UNIT/0.01 ML (CHARGE PER UNIT) SC SCH ×4 (06:05→21:03)
--- NOTE | 2022-03-24 07:53 | Progress Note ---
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 Patient is very sleepy this morning. She is sleeping while seated in recliner. Denies any complaints. Denies chest pain, palpitations, or any shortness of breath. Her Hb today is 8.9. Review of Systems General: Fatigue, Malaise Pulmonary: No Dyspnea, No Cough Cardiovascular: No: Chest Pain, Palpitations Objective Exam Vital Signs Vital Signs Date Time Temp Pulse Resp B/P (MAP) Pulse Ox O2 Delivery O2 Flow Rate FiO2 03/24/22 07:07 78 03/24/22 06:44 96 Nasal Cannula 2.00 03/24/22 04:00 36.5 69 16 135/80 (98) 97 Nasal Cannula 2.00 03/24/22 03:40 97 Nasal Cannula 2.00 03/24/22 01:00 82 03/23/22 23:51 37.0 74 20 136/70 (92) 20 Nasal Cannula 2.00 03/23/22 22:02 95 Nasal Cannula 2.00 94 03/23/22 21:11 94 Nasal Cannula 3.00 03/23/22 19:07 36.9 87 20 128/78 (95) 94 Nasal Cannula 2.00 03/23/22 19:00 85 03/23/22 15:20 36.5 70 16 132/76 (94) 98 Nasal Cannula 2.00 03/23/22 12:43 72 03/23/22 11:44 56 15 124/69 (87) 96 Nasal Cannula 2.00 03/23/22 11:41 36.3 03/23/22 08:15 67 13 135/68 (90) 95 Nasal Cannula 2.00 03/23/22 08:00 95 Nasal Cannula 2.00 03/23/22 08:00 36.3 03/23/22 08:00 71 14 135/68 (90) 97 Nasal Cannula 3.00 03/23/22 07:46 96 Nasal Cannula 2.00 94 I & O 03/24/22 07:00 Intake Total 820 ml Output Total 1225 ml Balance -405 ml General Appearance: No Apparent Distress, Obese HEENT: Normal ENT Inspection, Moist Mucous Membranes Neck: Non Tender, Supple Respiratory: Chest Non Tender, Lungs Clear, Normal Breath Sounds, No Accessory Muscle Use, No Respiratory Distress Cardiovascular: Regular Rate, Rhythm, Normal Peripheral Pulses, Systolic Murmur Gastrointestinal: Normal Bowel Sounds, Non Tender, Soft Rectal: Deferred Back: No CVA Tenderness Extremity: Non Tender, No Calf Tenderness, Pedal Edema Neurologic/Psychiatric: Alert, Oriented x3 Skin: Normal Color, Warm/Dry Results Lab Laboratory Tests 03/23/22 10:13: Glucometer 174H 03/23/22 15:25: Glucometer 136H 03/23/22 20:06: Glucometer 169H 03/24/22 04:50: White Blood Count 6.8, Red Blood Count 3.85, Hemoglobin 8.9L, Hematocrit 31L, Mean Corpuscular Volume 80, Mean Corpuscular Hemoglobin 23L, Mean Corpuscular Hemoglobin Concent 29L, Red Cell Distribution Width 17.6H, Platelet Count 212, Mean Platelet Volume 9.8, Immature Granulocyte % (Auto) 0, Neutrophils (%) (Auto) 66, Lymphocytes (%) (Auto) 19, Monocytes (%) (Auto) 11, Eosinophils (%) (Auto) 4, Basophils (%) (Auto) 0, Neutrophils # (Auto) 4.4, Lymphocytes # (Auto) 1.3, Monocytes # (Auto) 0.8, Eosinophils # (Auto) 0.3, Basophils # (Auto) 0.0, Immature Granulocyte # (Auto) 0.0, Percent Immature Platelet Fraction 2.5, Sodium Level 142, Potassium Level 4.0, Chloride Level 107, Carbon Dioxide Level 26, Anion Gap 9, Blood Urea Nitrogen 18, Creatinine 1.08, Estimat Glomerular Filtration Rate 50, BUN/Creatinine Ratio 17, Glucose Level 190H, Calcium Level 8.7 Assessment/Plan Assessment/Plan Admission Dx 1. Acute Respiratory Distress 2. 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 Acute on Chronic Anemia 4. Atrial Fibrillation 5. DMII 6. GER 7. Debility 8. Neuropathy Admission Status: Inpatient Order (span 2 midnights) Assessment and Plan 1. Acute Respiratory Distress -currently on oxygen at 2L NC, start SVNs with duoneb 2. 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 Acute on Chronic Anemia - Hb is stable today at 8.9 after receiving 2 units of PRBCs - Surgery consulted, recommends patient be scheduled for EGD/Colonoscopy to rule out GI bleed as cause of acute anemia - Protonix BID 4. Atrial Fibrillation -has been off eliquis in past due to recurrent falls and recently stopped due to rectal bleeding - Cardiology consulted, recommends patient be off OAC until possible GI bleed is evaluated 5. DMII -on accuchecks with SSI, daughter states her blood sugar was low yesterday 6. GER -has not had a formal sleep study but was noted on last hospital stay however patient states the BIPAP drove her crazy last time so she does not think she could tolerate the machine 7. Debility -will start PT/OT once stable 8. Neuropathy -resume gabapentin Supervisory-Addendum Brief Verification & Attestation Participated in pt care: history, MDM, physical Personally performed: exam, history, MDM, supervision of care Care discussed with: Medical Student Procedures: n/a Results interpretation: Verified all documentation agree with student note as documented. Kathrine Nixon is well known to me from clinic and previous multiple hospitalizations. She reports feeling better this morning compared to admission, had swelling and weakness as well as bleeding from her rectum. Acute GI bleeding Chronic anticoagulation Respiratory failure - acute Chronic Atrial fibrillation Chronic Diabetes Mellitus Chronic congestive heart failure Chronic severe pulmonary hypertension obesity Edema Pt has been evaluated by Dr. Manning - will plan on colonoscope in the hospital in the next 2 days. Holding anticoagulation at this time in anticipation of the colonoscope Anemia - stable after blood transfusion. CHF with severe pulmonary hypertension - pt has been on CPAP in hospital in the past - did not tolerate the cpap therapy - however will re-trial this treatment while in hospital. Will request physical therapy as well as possible dc to [facility] for therapy on dc. ROXANNE IBARRA Mar 24, 2022 07:53 DEANGELO FOSTER MD Mar 24, 2022 09:15
[2022-03-24 07:54] VITALS: BP 125/70
[2022-03-24] MEDS: IRON SUCROSE 200 MG/10 ML (VENOFER) VIAL IV SCH (07:58)
[2022-03-24] MEDS: FUROSEMIDE 20 MG (LASIX) TAB PO SCH (07:58)
[2022-03-24] MEDS: PANTOPRAZOLE 40 MG (PROTONIX) TAB PO SCH ×2 (07:58→20:05)
[2022-03-24] MEDS: KCL 20 MEQ TAB (K-DUR) PO SCH ×2 (07:58→17:29)
[2022-03-24] MEDS: GABAPENTIN 100 MG (NEURONTIN) CAP PO SCH ×3 (07:58→20:05)
--- NOTE | 2022-03-24 10:24 | Progress Note - Cardiology ---
Cardiology SOAP Progress Note Subjective: Sitting up in bed C/O fatigue No c/o CP, palpitations or dyspnea Objective: I&O/Vital Signs 03/24/22 03/24/22 03/25/22 03/25/22 20:23 21:46 00:04 00:10 Temp 36.2 Pulse 93 Resp 16 B/P (MAP) 133/78 (96) Pulse Ox 94 96 95 O2 Delivery Nasal Cannula Nasal Cannula Nasal Cannula O2 Flow Rate 2.50 3.00 3.00 03/25/22 03/25/22 03/25/22 03/25/22 01:00 02:42 04:05 04:08 Temp 36.0 Pulse 80 79 Resp 16 B/P (MAP) 142/71 (94) Pulse Ox 96 98 O2 Delivery Nasal Cannula Nasal Cannula O2 Flow Rate 3.00 3.00 03/25/22 06:59 Pulse Ox 97 O2 Delivery Nasal Cannula O2 Flow Rate 3.00 03/25/22 00:00 Intake Total 600 ml Output Total 1325 ml Balance -725 ml Weight (Pounds): 212 Weight (Ounces): 7.0 Weight (Calculated Kilograms): 96.204563 Constitutional: AAO x 3, well-developed, well-nourished Respiratory: No accessory muscle use; chest expansion is symmetric, other (basal coarse and fine crackles) Cardiovascular: irregularly irregular, S1 and S2, systolic murmur (soft LIZA at card base) Gastrointestional: No tender; soft; No guarding, No rebound; audible bowel sounds Extremities: No clubbing, No cyanosis, No significant edema Neurologic/Psychiatric: oriented x 3, other (moves all limbs equally) Skin: No rash on exposed areas, No ulcerations on exposed areas Results/Procedures: Labs Laboratory Tests 03/24/22 11:06: Glucometer 214H 03/24/22 12:19: Lab Scanned Report Transfusion Reaction Form 03/24/22 20:28: Glucometer 158H 03/25/22 03:51: White Blood Count 7.7, Red Blood Count 4.37, Hemoglobin 10.1L, Hematocrit 35, Mean Corpuscular Volume 80, Mean Corpuscular Hemoglobin 23L, Mean Corpuscular Hemoglobin Concent 29L, Red Cell Distribution Width 17.7H, Platelet Count 200, Mean Platelet Volume 10.1, Sodium Level 142, Potassium Level 4.1, Chloride Level 105, Carbon Dioxide Level 26, Anion Gap 11, Blood Urea Nitrogen 10, Creatinine 0.93, Estimat Glomerular Filtration Rate 60, BUN/Creatinine Ratio 11, Glucose Level 122H, Calcium Level 9.3, Corrected Calcium 9.6, Total Bilirubin 0.6, Aspartate Amino Transf (AST/SGOT) 20, Alanine Aminotransferase (ALT/SGPT) 13, Alkaline Phosphatase 123, Total Protein 7.1, Albumin 3.6 A/P: Assessment: Ac resp failure, multifactorial: ac on ch CHF & cor pulmonale, marked anemia, probable obesity-hypovent/GER Acute on chronic CHF and cor pulmonale - 2D Echo done 01/27/[address] Barker showing mild diffuse hypokinesia with EF 45%. Dilated right and left atrium, moderate MR, severe TR. PA 75-80mmHg. Severe pulmonary hypertension with dilated right heart chambers. Significant deterioration compared to the previous echo from 2020. Marked anemia of undetermined etiology - GI bleed suspected, oral anticoag withheld, treated blood transfusion on 03/22/22 Chronic permanent atrial fibrillation - twelve-lead EKG was done showing atrial fibrillation with right bundle branch block. - [id number] score 4, yearly risk of stroke without oral anticoagulation is 4%. - Off Eliquis 5mg BID because suspected bleeding leading to anemia Pulmonary HTN - likely d/t obesity hypoventilation syndrome/GER Generalized weakness - continue PT/OT Hypertension - controlled Hyperlipidemia - maintained on statin CKD 3a - monitored and managed by the Med ce DM II - management per Medical services Peripheral neuropathy Chronic pain syndrome Plan: * Diuretics changed to p.o per medical services * Blood transfusion x 2 unites - H/H improved * Replenish electrolytes * Med svce to eval for GI bleed or other occult bleed. OAC being held for now - advise source of bleeding be determined and treated in order to allow resumption of OAC for stroke prophylaxis * Advise sleep studies as outpt * Monitor labs SB REDDY Mar 24, 2022 10:24
[2022-03-24 12:00] VITALS: BP 137/116
[2022-03-24] MEDS: MILK OF MAGNESIA 400 MG/5 ML 30 ML UDC PO SCH ×7 (12:37→23:02)
[2022-03-24 13:00] VITALS: BP 154/87
--- NOTE | 2022-03-24 13:59 | Physical Therapy Evaluation ---
PT Evaluation-General Medical Diagnosis Admission Date Mar 21, 2022 at 21:05 Medical Diagnosis: Shortness of breath Onset Date: Mar 21, 2022 Therapy Diagnosis Therapy Diagnosis: Gait deficit, strength deficit Height/Weight Height (Feet): 5 Height (Inches): 8.00 Weight (Pounds): 212 Weight (Ounces): 7.0 Precautions Precautions/Isolations: Fall Prevention, Standard Precautions Weight Bear Status Right Lower Extremity: Right Full Weight Bearing Left Lower Extremity: Left Full Weight Bearing Referral Physician: Dr. Figueroa Reason for Referral: Evaluation/Treatment Medical History Pertinent Medical History: Atrial Fib, Arthritis, DM, HTN, Neuropathy, OA, Renal Insufficiency, Smoking Social History Home: Multilevel Current Living Status: Children Entry Into Home: Stairs Without Railing PT Steps Into Home: 2 Prior Prior Level of Function SCALE: Activities may be completed with or without assistive devices. 8-Dhsyukgbwl-uiheprj completes the activity by him/herself with no assistance from a helper. 5-Set-up or Clean-up Assistance-helper sets up or cleans up; patient completes activity. Leland assists only prior to or following the activity. 4-Supervision or Touching Assistance-helper provides verbal cues and/or touching/steadying and/or contact guard assistance as patient completes activity. Assistance may be provided throughout the activity or intermittently. 3-Partial/Moderate Assistance-helper does LESS THAN HALF the effort. Leland lifts, holds or supports trunk or limbs, but provides less than half the effort. 2-Substantial/Maximal Assistance-helper does MORE THAN HALF the effort. Leland lifts or holds trunk or limbs and provides more than half the effort. 8-Avzqbszij-dmhwlc does ALL the effort. Patient does none of the effort to complete the activity. Or, the assistance of 2 or more helpers is required for the patient to complete the activity. If activity was not attempted, code reason: 7-Patient Refused. 9-Not Applicable-not attempted and the patient did not perform the activity before the current illness, exacerbation or injury. 10-Not Attempted due to Environmental Limitations-(lack of equipment, weather restraints, etc.). 88-Not Attempted due to Medical Conditions or Safety Concerns. Bed Mobility: 6 Transfers (B,C,W/C): 6 Gait: 6 Stairs: 6 Indoor Mobility (Ambulation): Independent Stairs: Independent Prior Devices Use: Walker PT Evaluation-Current Subjective Patient lying supine in bed upon PT arrival, agreeable to treatment. Reports her legs are sore from increased swelling, however rates overall pain at 0/10. Objective Patient Orientation: Person, Place, Time, Situation Attachments: Oxygen, [place] Catheter ROM/Strength ROM Lower Extremities WFLs bilaterally all planes Strength Lower Extremities Hip flexion 3/5 bilaterally Hip abd/adduction 4/5 bilaterally Knee flexion 3+/5 bilaterally Knee extension 4-/5 bilaterally Sensory Vision: Functional Hearing: Functional Sensation Right Lower Extremit: Intact Sensation Left Lower Extremity: Intact Transfers Roll Left to Right (QC): 3 Sit to Lying (QC): 3 Lying to Sitting/Side of Bed(Q: 3 Sit to Stand (QC): 4 Chair/Tgd-eq-Lgxmc Xfer(QC): 4 Gait Does the Patient Walk?: Yes Mode of Locomotion: Walk Anticipated Mode of Locomotion: Walk Walk 10 feet (QC): 4 Walk 50 ft with 2 Turns(QC): 4 Walk 150 ft (QC): 4 Distance: 150 feet Gait Assistive Device: FWW Comments/Gait Description Forest Economist for O2 Balance Sitting Static: Normal Sitting Dynamic: Good Standing Static: Fair Standing Dynamic: Fair Assessment/Needs Patient tolerated evaluation and treatment well. Patient BP upon PT arrival at 137/116. Nurse notified and reports the cuff may have malfunctioned as all of her other BPs today have been high, but normal. Gave approval for treatment. Patient performs all bed mobility with min A and transfers with CGA. Patient ambulates 150 feet with FWW, with CGA and verbal cues for posture, progression and conservation of energy. Patient returned to room and requires CGA for sitting in chair. Patient O2 at 90% upon reattaching monitors. Patient in chair post treatment with family in the room, all needs met, nursing notified, call light in hand. Rehab Potential: Good Equipment Needs Unsure at this time as patient has FWW PT General Partner Goals Custodial Goals PT General Partner Goals Time Frame: Apr 08, 2022 Roll Left & Right (QC): 6 Sit to Lying (QC): 6 Lying-Sitting on Side/Bed(QC): 6 Sit to Stand (QC): 6 Chair/Pol-nn-Lpdlp Xfer(QC): 6 Toilet Transfer (QC): 6 Does the Patient Walk: Yes Walk 10 feet (QC): 6 Walk 50ft with 2 Turns (QC): 6 Walk 150 ft (QC): 6 1 Step (curb) (QC): 4 4 Steps (QC): 4 PT Plan Problem List Problem List: Activity Tolerance, Functional Strength, Safety, Balance, Gait, Transfer, Bed Mobility, ROM Treatment/Plan Treatment Plan: Continue Plan of Care Treatment Plan: Bed Mobility, Education, Functional Activity Patricia, Functional Strength, Group Therapy, Gait, Safety, Therapeutic Exercise, Transfers Treatment Duration: Apr 12, 2022 Frequency: 6 times per week Estimated Hrs Per Day: .25 hour per day Patient and/or Family Agrees t: Yes Safety Risks/Education Patient Education: Gait Training, Transfer Techniques Teaching Recipient: Patient, Family Teaching Methods: Demonstration, Discussion Response to Teaching: Verbalize Understanding, Return Demonstration Discharge Recommendations Target Placement Home with Assist, however family has expressed concern in ability to take care of her. If patient returns home she would benefit from outpatient Therapy for increasing strength and improving balance. Time Time In: 1316 Time Out: 1344 DATE: Mar 24, 2022 Total Billed Treatment Time: 28 Total Billed Treatment Visit, Tg Lund JOHN A PT Mar 24, 2022 13:59
[2022-03-24 15:32] VITALS: BP 132/69
[2022-03-24] MEDS ORDERED: INSU100I14 SQ (15:34)
[2022-03-24] MEDS ORDERED: GABA-486 PO (15:34)
[2022-03-24] MEDS ORDERED: POTA-177 PO (15:34)
[2022-03-24] MEDS ORDERED: CRV25T PO (15:34)
[2022-03-24] MEDS ORDERED: INSU100I14 SC (15:34)
[2022-03-24] MEDS ORDERED: INSU200I4 SC (15:34)
[2022-03-24] MEDS ORDERED: HYDR-3820 PO (15:34)
--- NOTE | 2022-03-24 18:28 | Progress Note - Cardiology ---
Cardiology SOAP Progress Note Subjective: Shortness of breath is improving No cp or palp or syncope Gen weakness present No n/v/d Objective: I&O/Vital Signs 03/24/22 03/24/22 03/24/22 03/24/22 06:44 07:07 07:54 09:00 Temp 36.0 Pulse 78 70 Resp 12 B/P (MAP) 125/70 (88) Pulse Ox 96 97 95 O2 Delivery Nasal Cannula Nasal Cannula Nasal Cannula O2 Flow Rate 2.00 2.00 1.00 03/24/22 03/24/22 03/24/22 03/24/22 10:26 12:00 12:00 13:00 Temp 36.2 Pulse 77 72 Resp 16 B/P (MAP) 137/116 (123) Pulse Ox 94 93 O2 Delivery Nasal Cannula Nasal Cannula O2 Flow Rate 2.00 2.00 03/24/22 03/24/22 03/24/22 03/24/22 13:00 14:21 15:32 17:29 Temp 36.2 Pulse 72 81 Resp 16 19 B/P (MAP) 154/87 (109) 132/69 (90) Pulse Ox 91 92 91 O2 Delivery Nasal Cannula Nasal Cannula Nasal Cannula O2 Flow Rate 2.00 2.00 2.00 2.50 03/24/22 00:00 Intake Total 770 ml Output Total 875 ml Balance -105 ml Weight (Pounds): 212 Weight (Ounces): 7.0 Weight (Calculated Kilograms): 96.736186 Constitutional: AAO x 3, well-developed, well-nourished Respiratory: No accessory muscle use; chest expansion is symmetric, other (basal coarse and fine crackles) Cardiovascular: irregularly irregular, S1 and S2, systolic murmur (soft LIZA at card base) Gastrointestional: No tender; soft; No guarding, No rebound; audible bowel sounds Extremities: No clubbing, No cyanosis, No significant edema Neurologic/Psychiatric: oriented x 3, other (moves all limbs equally) Skin: No rash on exposed areas, No ulcerations on exposed areas Results/Procedures: Labs Laboratory Tests 03/23/22 20:06: Glucometer 169H 03/24/22 04:50: White Blood Count 6.8, Red Blood Count 3.85, Hemoglobin 8.9L, Hematocrit 31L, Mean Corpuscular Volume 80, Mean Corpuscular Hemoglobin 23L, Mean Corpuscular Hemoglobin Concent 29L, Red Cell Distribution Width 17.6H, Platelet Count 212, Mean Platelet Volume 9.8, Immature Granulocyte % (Auto) 0, Neutrophils (%) (Auto) 66, Lymphocytes (%) (Auto) 19, Monocytes (%) (Auto) 11, Eosinophils (%) (Auto) 4, Basophils (%) (Auto) 0, Neutrophils # (Auto) 4.4, Lymphocytes # (Auto) 1.3, Monocytes # (Auto) 0.8, Eosinophils # (Auto) 0.3, Basophils # (Auto) 0.0, Immature Granulocyte # (Auto) 0.0, Percent Immature Platelet Fraction 2.5, Sodium Level 142, Potassium Level 4.0, Chloride Level 107, Carbon Dioxide Level 26, Anion Gap 9, Blood Urea Nitrogen 18, Creatinine 1.08, Estimat Glomerular Filtration Rate 50, BUN/Creatinine Ratio 17, Glucose Level 190H, Calcium Level 8.7 03/24/22 11:06: Glucometer 214H 03/24/22 12:19: Lab Scanned Report Transfusion Reaction Form Laboratory Tests 03/23/22 03:25 03/24/22 04:50 A/P: Assessment: Ac resp failure, multifactorial: ac on ch CHF & cor pulmonale, marked anemia, probable obesity-hypovent/GER Acute on chronic CHF and cor pulmonale - 2D Echo done 01/27/[address] Barker showing mild diffuse hypokinesia with EF 45%. Dilated right and left atrium, moderate MR, severe TR. PA 75-80mmHg. Severe pulmonary hypertension with dilated right heart chambers. Significant deterioration compared to the previous echo from 2020. Marked anemia of undetermined etiology - GI bleed suspected, oral anticoag withheld, treated blood transfusion on 03/22/22 Chronic permanent atrial fibrillation - twelve-lead EKG was done showing atrial fibrillation with right bundle branch block. - [id number] score 4, yearly risk of stroke without oral anticoagulation is 4%. - Off Eliquis 5mg BID because suspected bleeding leading to anemia Pulmonary HTN - likely d/t obesity hypoventilation syndrome/GER Generalized weakness - continue PT/OT Hypertension - controlled Hyperlipidemia - maintained on statin CKD 3a - monitored and managed by the [facility] DM II - management per Medical services Peripheral neuropathy Chronic pain syndrome Plan: * Diuretics changed to p.o per medical services * Blood transfusion x 2 unites - H/H improved * Replenish electrolytes * Med svce to eval for GI bleed or other occult bleed. OAC being held for now - advise source of bleeding be determined and treated in order to allow resump tion of OAC for stroke prophylaxis * Advise sleep studies as outpt * Monitor labs HARITHA ESPARZA MD FACP FAC CCDS Mar 24, 2022 18:28
[2022-03-24 19:44] VITALS: BP 149/96
[2022-03-24] MEDS: AtorvaSTATin TABLET 10 MG TABLET PO SCH (20:05)
[2022-03-25] VITALS (10 sets, daily range): BP systolic 112–148; BP diastolic 62–91
[2022-03-25] MEDS: MILK OF MAGNESIA 400 MG/5 ML 30 ML UDC PO SCH ×6 (02:03→11:33)
[2022-03-25] MEDS: RT-ALBUTEROL/IPRATROPIUM 3 ML (DUONEB) VIAL INH SCH ×7 (02:42→22:49)
[2022-03-25 04:05] LABS: HEMATOCRIT 35 % (35-52); HEMOGLOBIN 10.1 g/dL (11.5-16.0); MEAN CORPUSCULAR HEMOGLOBIN 23 pg (25-34); MEAN CORPUSCULAR HGB CONC 29 g/dL (32-36); MEAN CORPUSCULAR VOLUME 80 fL (80-99); MEAN PLATELET VOLUME 10.1 fL (9.0-12.2); PLATELET COUNT 200 10^3/uL (130-400); WHITE BLOOD COUNT 7.7 10^3/uL (4.3-11.0)
[2022-03-25 04:17] LABS: ALBUMIN 3.6 GM/DL (3.2-4.5)
[2022-03-25 04:18] LABS: POTASSIUM 4.1 MMOL/L (3.6-5.0)
[2022-03-25 04:19] LABS: CALCIUM 9.3 MG/DL (8.5-10.1)
[2022-03-25 04:20] LABS: TOTAL PROTEIN 7.1 GM/DL (6.4-8.2)
[2022-03-25 04:22] LABS: BILIRUBIN,TOTAL 0.6 MG/DL (0.1-1.0)
[2022-03-25 04:24] LABS: CREATININE SERUM 0.93 MG/DL (0.60-1.30)
[2022-03-25] MEDS: inSUlin ASPART (NovoLOG) 1 UNIT/0.01 ML (CHARGE PER UNIT) SC SCH ×4 (06:07→21:27)
[2022-03-25] MEDS: CATHETER FLUSH 10 ML SYR IVP SCH ×3 (06:07→20:42)
--- NOTE | 2022-03-25 07:34 | Progress Note ---
Subjective Subjective Date Seen by Provider: Mar 25, 2022 Time Seen by Provider: 07:27 Patient is having her EGD and Colonoscopy done later today. She states she was not able to sleep much due to having to do her bowel prep. She does have some LE swelling and discomfort still. Other than that, she denies any other complaints. She is feeling better overall. Denies shortness of breath, CP, or palpitations. Her Hb today continue to improve from 8.9 yesterday to 10.1 today. Review of Systems General: Fatigue Pulmonary: No Dyspnea, No Cough Cardiovascular: No: Chest Pain, Palpitations Gastrointestinal: No: Nausea, Vomiting, Abdominal Pain Objective Exam Vital Signs Vital Signs Date Time Temp Pulse Resp B/P (MAP) Pulse Ox O2 Delivery O2 Flow Rate FiO2 03/25/22 06:59 97 Nasal Cannula 3.00 03/25/22 04:08 36.0 03/25/22 04:05 79 16 142/71 (94) 98 Nasal Cannula 3.00 03/25/22 02:42 96 Nasal Cannula 3.00 03/25/22 01:00 80 03/25/22 00:10 36.2 03/25/22 00:04 93 16 133/78 (96) 95 Nasal Cannula 3.00 03/24/22 21:46 96 Nasal Cannula 3.00 03/24/22 20:23 94 Nasal Cannula 2.50 03/24/22 19:44 36.4 88 20 149/96 (113) 92 Nasal Cannula 3.00 03/24/22 19:00 93 03/24/22 18:45 94 Nasal Cannula 2.00 03/24/22 17:29 2.50 03/24/22 15:32 36.2 81 19 132/69 (90) 91 Nasal Cannula 2.00 03/24/22 14:21 92 Nasal Cannula 2.00 03/24/22 13:00 72 16 154/87 (109) 91 Nasal Cannula 2.00 03/24/22 13:00 72 03/24/22 12:00 36.2 03/24/22 12:00 77 16 137/116 (123) 93 Nasal Cannula 2.00 03/24/22 10:26 94 Nasal Cannula 2.00 03/24/22 09:00 95 Nasal Cannula 1.00 03/24/22 07:54 36.0 70 12 125/70 (88) 97 Nasal Cannula 2.00 I & O 03/25/22 07:00 Intake Total 600 ml Output Total 1775 ml Balance -1175 ml General Appearance: No Apparent Distress, Obese HEENT: Normal ENT Inspection, Moist Mucous Membranes Neck: Non Tender, Supple Respiratory: Chest Non Tender, Lungs Clear, Normal Breath Sounds, No Accessory Muscle Use, No Respiratory Distress Cardiovascular: Regular Rate, Rhythm, Normal Peripheral Pulses, Systolic Murmur Gastrointestinal: Normal Bowel Sounds, Non Tender, Soft Rectal: Deferred Back: No CVA Tenderness Extremity: Non Tender, No Calf Tenderness, Pedal Edema Neurologic/Psychiatric: Alert, Oriented x3 Skin: Normal Color, Warm/Dry Results Lab Laboratory Tests 03/24/22 11:06: Glucometer 214H 03/24/22 12:19: Lab Scanned Report Transfusion Reaction Form 03/24/22 20:28: Glucometer 158H 03/25/22 03:51: White Blood Count 7.7, Red Blood Count 4.37, Hemoglobin 10.1L, Hematocrit 35, Mean Corpuscular Volume 80, Mean Corpuscular Hemoglobin 23L, Mean Corpuscular Hemoglobin Concent 29L, Red Cell Distribution Width 17.7H, Platelet Count 200, Mean Platelet Volume 10.1, Sodium Level 142, Potassium Level 4.1, Chloride Level 105, Carbon Dioxide Level 26, Anion Gap 11, Blood Urea Nitrogen 10, Creatinine 0.93, Estimat Glomerular Filtration Rate 60, BUN/Creatinine Ratio 11, Glucose Level 122H, Calcium Level 9.3, Corrected Calcium 9.6, Total Bilirubin 0.6, Aspartate Amino Transf (AST/SGOT) 20, Alanine Aminotransferase (ALT/SGPT) 13, Alkaline Phosphatase 123, Total Protein 7.1, Albumin 3.6 Assessment/Plan Assessment/Plan Admission Dx 1. Acute Respiratory Distress 2. 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 Acute on Chronic Anemia 4. Atrial Fibrillation 5. DMII 6. GER 7. Debility 8. Neuropathy Admission Status: Inpatient Order (span 2 midnights) Assessment and Plan 1. Acute Respiratory Distress -currently on oxygen at 2L NC, start SVNs with duoneb 2. 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 Acute on Chronic Anemia - Hb continues to increase and improve, today it is at 10.1 from 8.9 yesterday - Surgery consulted, will have EGD/Colonoscopy with Dr. Manning today to rule out GI bleed as cause of acute anemia - Protonix BID 4. Atrial Fibrillation -has been off eliquis in past due to recurrent falls and recently stopped due to rectal bleeding - Cardiology consulted, recommends patient be off OAC until possible GI bleed is evaluated 5. DMII -on accuchecks with SSI, daughter states her blood sugar was low yesterday 6. GER - has not had a formal sleep study due to patient being uncomfortable with CPAP mask previously - will try to have patient try again during this hospitalization 7. Chronic Pulmonary Hypertension - likely due to GER 8. Debility -will start PT/OT once stable 9. Neuropathy -resume gabapentin 10. Hypertension - controlled 11. Hyperlipidemia - maintained on statin 12. CKD 3a - monitor kidney function and renally dose all medications Admission Dx 1. Acute Respiratory Distress 2. 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 Acute on Chronic Anemia 4. Atrial Fibrillation 5. DMII 6. GER 7. Debility 8. Neuropathy Clinical Quality Measures Admission Status Admission Dx 1. Acute Respiratory Distress 2. 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 Acute on Chronic Anemia 4. Atrial Fibrillation 5. DMII 6. GER 7. Debility 8. Neuropathy Supervisory-Addendum Brief Verification & Attestation Participated in pt care: history, MDM, physical Personally performed: exam, history, MDM, supervision of care Care discussed with: Medical Student Procedures: n/a Results interpretation: Verified all documentation Acute GI bleeding Chronic anticoagulation Respiratory failure - acute Chronic Atrial fibrillation Chronic Diabetes Mellitus Chronic congestive heart failure Chronic severe pulmonary hypertension obesity Edema Pt has been evaluated by Dr. Manning - will plan on colonoscope in the hospital today. Holding anticoagulation at this time in anticipation of the colonoscope Anemia - improved after blood transfusion. CHF with severe pulmonary hypertension - pt has been on CPAP in hospital in the past - did not tolerate the cpap therapy - however will re-trial this treatment while in hospital. Will request physical therapy as well as possible dc [facility] on dc. ROXANNE IBARRA Mar 25, 2022 07:34 DEANGELO FOSTER MD Mar 25, 2022 09:02
[2022-03-25] MEDS: FUROSEMIDE 20 MG (LASIX) TAB PO SCH (07:43)
[2022-03-25] MEDS: KCL 20 MEQ TAB (K-DUR) PO SCH ×2 (07:43→17:06)
[2022-03-25] MEDS: GABAPENTIN 100 MG (NEURONTIN) CAP PO SCH ×3 (07:44→20:41)
[2022-03-25] MEDS: PANTOPRAZOLE 40 MG (PROTONIX) TAB PO SCH (07:44)
[2022-03-25] MEDS ORDERED: IRON SUCROSE 200 MG/10 ML (VENOFER) VIAL IV SCH (09:00)
--- NOTE | 2022-03-25 10:10 | Physical Therapy Daily Note ---
PT Daily Note-Current Subjective Patient agrees to PT. Pain Section J - Health Conditions 1. Rarely or not at all 2. Occasionally 3. Frequently 4. Almost constantly 8. Unable to answer Pain Effect on Sleep: 1 Pain Interference with Therapy: 1 Pain Interference w/Day-to-Day: 1 Mental Status Patient Orientation: Normal For Age Attachments: Oxygen Transfers SCALE: Activities may be completed with or without assistive devices. 2-Pqhckioknw-ocykcuc completes the activity by him/herself with no assistance from a helper. 5-Set-up or Clean-up Assistance-helper sets up or cleans up; patient completes activity. [place] assists only prior to or following the activity. 4-Supervision or Touching Assistance-helper provides verbal cues and/or touching/steadying and/or contact guard assistance as patient completes activity. Assistance may be provided throughout the activity or intermittently. 3-Partial/Moderate Assistance-helper does LESS THAN HALF the effort. [place] lifts, holds or supports trunk or limbs, but provides less than half the effort. 2-Substantial/Maximal Assistance-helper does MORE THAN HALF the effort. [place] lifts or holds trunk or limbs and provides more than half the effort. 3-Teyvgzvai-mlbpsr does ALL the effort. Patient does none of the effort to complete the activity. Or, the assistance of 2 or more helpers is required for the patient to complete the activity. If activity was not attempted, code reason: 7-Patient Refused. 9-Not Applicable-not attempted and the patient did not perform the activity before the current illness, exacerbation or injury. 10-Not Attempted due to Environmental Limitations-(lack of equipment, weather restraints, etc.). 88-Not Attempted due to Medical Conditions or Safety Concerns. Lying to Sitting/Side of Bed(Q: 4 Sit to Stand (QC): 4 Chair/Xiv-vp-Ywxgo Xfer(QC): 4 Weight Bearing Right Lower Extremity: Right Full Weight Bearing Left Lower Extremity: Left Full Weight Bearing Gait Training Distance: 200' Walk 10 feet (QC): 4 Walk 50 ft with 2 Turns(QC): 4 Walk 150 ft (QC): 4 Gait Assistive Device: FWW slow, steady gait sequence Assessment Patient up in recliner with needs met. Patient tolerated treatment well. Per RN, patient to have colonoscopy and EGD on this date. PT Penitentiary Goals Foster Care Social Worker Goals PT Penitentiary Goals Time Frame: Apr 08, 2022 Roll Left & Right (QC): 6 Sit to Lying (QC): 6 Lying-Sitting on Side/Bed(QC): 6 Sit to Stand (QC): 6 Chair/Rut-fk-Mvbmf Xfer(QC): 6 Toilet Transfer (QC): 6 Does the Patient Walk: Yes Walk 10 feet (QC): 6 Walk 50ft with 2 Turns (QC): 6 Walk 150 ft (QC): 6 1 Step (curb) (QC): 4 4 Steps (QC): 4 PT Plan Treatment/Plan Treatment Plan: Continue Plan of Care Treatment Plan: Bed Mobility, Education, Functional Activity Patricia, Functional Strength, Group Therapy, Gait, Safety, Therapeutic Exercise, Transfers Treatment Duration: Apr 12, 2022 Frequency: 6 times per week Estimated Hrs Per Day: .25 hour per day Patient and/or Family Agrees t: Yes Time Time In: 825 Time Out: 841 DATE: Mar 25, 2022 Total Billed Treatment Time: 16 Total Billed Treatment 1 visit FA 16 min ISAMAR JADE PT Mar 25, 2022 10:10
--- NOTE | 2022-03-25 10:25 | Progress Note - Cardiology ---
Cardiology SOAP Progress Note Objective: I&O/Vital Signs 03/25/22 03/25/22 03/25/22 03/25/22 04:05 04:08 06:59 07:02 Temp 36.0 Pulse 79 81 Resp 16 B/P (MAP) 142/71 (94) Pulse Ox 98 97 O2 Delivery Nasal Cannula Nasal Cannula O2 Flow Rate 3.00 3.00 03/25/22 03/25/22 03/25/22 03/25/22 08:00 09:00 10:18 12:00 Temp 36.1 36.7 Pulse 89 80 Resp 14 18 B/P (MAP) 143/91 (108) 133/88 (103) Pulse Ox 94 94 95 93 O2 Delivery Nasal Cannula Nasal Cannula O2 Flow Rate 2.50 2.50 3.00 2.50 03/25/22 03/25/22 03/25/22 12:03 13:40 13:45 Temp 36.16716 36.12751 Pulse 86 86 84 Resp 18 18 Pulse Ox 98 95 O2 Delivery OxyMask Nasal Cannula O2 Flow Rate 10.00 3.00 03/25/22 00:00 Intake Total 600 ml Output Total 1325 ml Balance -725 ml Weight (Pounds): 212 Weight (Ounces): 7.0 Weight (Calculated Kilograms): 96.619933 Constitutional: AAO x 3, well-developed, well-nourished Respiratory: No accessory muscle use; chest expansion is symmetric, other (basal coarse and fine crackles) Cardiovascular: irregularly irregular, S1 and S2, systolic murmur (soft LIZA at card base) Gastrointestional: No tender; soft; No guarding, No rebound; audible bowel sounds Extremities: No clubbing, No cyanosis, No significant edema Neurologic/Psychiatric: oriented x 3, other (moves all limbs equally) Skin: No rash on exposed areas, No ulcerations on exposed areas Results/Procedures: Labs Laboratory Tests 03/24/22 20:28: Glucometer 158H 03/25/22 03:51: White Blood Count 7.7, Red Blood Count 4.37, Hemoglobin 10.1L, Hematocrit 35, Mean Corpuscular Volume 80, Mean Corpuscular Hemoglobin 23L, Mean Corpuscular Hemoglobin Concent 29L, Red Cell Distribution Width 17.7H, Platelet Count 200, Mean Platelet Volume 10.1, Sodium Level 142, Potassium Level 4.1, Chloride Level 105, Carbon Dioxide Level 26, Anion Gap 11, Blood Urea Nitrogen 10, Creatinine 0.93, Estimat Glomerular Filtration Rate 60, BUN/Creatinine Ratio 11, Glucose Level 122H, Calcium Level 9.3, Corrected Calcium 9.6, Total Bilirubin 0.6, Aspartate Amino Transf (AST/SGOT) 20, Alanine Aminotransferase (ALT/SGPT) 13, Alkaline Phosphatase 123, Total Protein 7.1, Albumin 3.6 03/25/22 11:36: Glucometer 132H A/P: Assessment: Ac resp failure, multifactorial: ac on ch CHF & cor pulmonale, marked anemia, probable obesity-hypovent/GER Acute on chronic CHF and cor pulmonale - 2D Echo done 01/27/[address] Barker showing mild diffuse hypokinesia with EF 45%. Dilated right and left atrium, moderate MR, severe TR. PA 75-80mmHg. Severe pulmonary hypertension with dilated right heart chambers. Significant deterioration compared to the previous echo from 2020. Marked anemia of undetermined etiology - GI bleed suspected, oral anticoag withheld, treated blood transfusion on 03/22/22 - H/H stable Chronic permanent atrial fibrillation - twelve-lead EKG was done showing atrial fibrillation with right bundle branch block. - [id number] score 4, yearly risk of stroke without oral anticoagulation is 4%. - Off Eliquis 5mg BID because suspected bleeding leading to anemia Pulmonary HTN - likely d/t obesity hypoventilation syndrome/GER Generalized weakness - continue PT/OT Hypertension - controlled Hyperlipidemia - maintained on statin CKD 3a - [facility] - [facility] per Medical services Peripheral neuropathy Chronic pain syndrome Plan: * Blood transfusion x 2 units - H/H stable * Replenish electrolytes * Med svce to eval for GI bleed or other occult bleed. OAC being held for now - advise source of bleeding be determined and treated in order to allow resumption of OAC for stroke prophylaxis - upper an lower endoscopy later today by Dr. Manning * Advise sleep studies as outpt * Monitor labs SB REDDY Mar 25, 2022 10:25
--- NOTE | 2022-03-25 11:19 | Progress Note - Cardiology ---
Cardiology SOAP Progress Note Subjective: Gen weakness present Shortness of breath better No n/v/d Swelling improving No cp or palp or syncope Objective: I&O/Vital Signs 03/25/22 03/25/22 03/25/22 03/25/22 00:04 00:10 01:00 02:42 Temp 36.2 Pulse 93 80 Resp 16 B/P (MAP) 133/78 (96) Pulse Ox 95 96 O2 Delivery Nasal Cannula Nasal Cannula O2 Flow Rate 3.00 3.00 03/25/22 03/25/22 03/25/22 03/25/22 04:05 04:08 06:59 07:02 Temp 36.0 Pulse 79 81 Resp 16 B/P (MAP) 142/71 (94) Pulse Ox 98 97 O2 Delivery Nasal Cannula Nasal Cannula O2 Flow Rate 3.00 3.00 03/25/22 03/25/22 03/25/22 08:00 09:00 10:18 Temp 36.1 Pulse 89 Resp 14 B/P (MAP) 143/91 (108) Pulse Ox 94 94 95 O2 Delivery Nasal Cannula Nasal Cannula O2 Flow Rate 2.50 2.50 3.00 03/25/22 00:00 Intake Total 600 ml Output Total 1325 ml Balance -725 ml Weight (Pounds): 212 Weight (Ounces): 7.0 Weight (Calculated Kilograms): 96.596851 Constitutional: AAO x 3, well-developed, well-nourished Respiratory: No accessory muscle use; chest expansion is symmetric, other (basal coarse and fine crackles) Cardiovascular: irregularly irregular, S1 and S2, systolic murmur (soft LIZA at card base) Gastrointestional: No tender; soft; No guarding, No rebound; audible bowel sounds Extremities: No clubbing, No cyanosis, No significant edema Neurologic/Psychiatric: oriented x 3, other (moves all limbs equally) Skin: No rash on exposed areas, No ulcerations on exposed areas Results/Procedures: Labs Laboratory Tests 03/24/22 12:19: Lab Scanned Report Transfusion Reaction Form 03/24/22 20:28: Glucometer 158H 03/25/22 03:51: White Blood Count 7.7, Red Blood Count 4.37, Hemoglobin 10.1L, Hematocrit 35, Mean Corpuscular Volume 80, Mean Corpuscular Hemoglobin 23L, Mean Corpuscular Hemoglobin Concent 29L, Red Cell Distribution Width 17.7H, Platelet Count 200, Mean Platelet Volume 10.1, Sodium Level 142, Potassium Level 4.1, Chloride Level 105, Carbon Dioxide Level 26, Anion Gap 11, Blood Urea Nitrogen 10, Creatinine 0.93, Estimat Glomerular Filtration Rate 60, BUN/Creatinine Ratio 11, Glucose Level 122H, Calcium Level 9.3, Corrected Calcium 9.6, Total Bilirubin 0.6, Aspartate Amino Transf (AST/SGOT) 20, Alanine Aminotransferase (ALT/SGPT) 13, Alkaline Phosphatase 123, Total Protein 7.1, Albumin 3.6 Laboratory Tests 03/24/22 04:50 03/25/22 03:51 A/P: Assessment: Ac resp failure, multifactorial: ac on ch CHF & cor pulmonale, marked anemia, probable obesity-hypovent/GER Acute on chronic CHF and cor pulmonale - 2D Echo done 01/27/[address] Barker showing mild diffuse hypokinesia with EF 45%. Dilated right and left atrium, moderate MR, severe TR. PA 75-80mmHg. Severe pulmonary hypertension with dilated right heart chambers. Significant deterioration compared to the previous echo from 2020. Marked anemia of undetermined etiology - GI bleed suspected, oral anticoag withheld, treated blood transfusion on 03/22/22 - H/H stable Chronic permanent atrial fibrillation - twelve-lead EKG was done showing atrial fibrillation with right bundle branch block. - [id number] score 4, yearly risk of stroke without oral anticoagulation is 4%. - Off Eliquis 5mg BID because suspected bleeding leading to anemia Pulmonary HTN - likely d/t obesity hypoventilation syndrome/GER Generalized weakness - continue PT/OT Hypertension - controlled Hyperlipidemia - maintained on statin CKD 3a - monitored and managed by the [facility] [place] DM II - management per Medical services Peripheral neuropathy Chronic pain syndrome Plan: * Please resume OAC when ok from Medical/Surgical standpoin * Reduce KCl to 20 mEq daily (on furosemide 20 mg daily) * Advise sleep studies as outpt * Monitor labs HARITHA ESPARZA MD FACP FAC CCDS Mar 25, 2022 11:19
[2022-03-25] MEDS ORDERED: LACTATED RINGERS 1,000 ML IV STA (12:24)
[2022-03-25] MEDS ORDERED: HURRICAINE EXT TUBE (BENZOCAINE) XX PRN (12:30)
[2022-03-25] MEDS ORDERED: LIDOCAINE JELLY 2% 6 ML SYRINGE MM PRN (12:30)
--- NOTE | 2022-03-25 12:39 | Progress Note ---
Subjective Date Seen by a Provider: Mar 25, 2022 Time Seen by a Provider: 12:00 Subjective/Events-last exam doing ok. Hb stable. tolerated prep well. no abd pain. Objective Exam Vital Signs Date Time Temp Pulse Resp B/P (MAP) Pulse Ox O2 Delivery O2 Flow Rate FiO2 03/25/22 10:18 95 Nasal Cannula 3.00 03/25/22 09:00 94 Nasal Cannula 2.50 03/25/22 08:00 36.1 89 14 143/91 (108) 94 2.50 03/25/22 07:02 81 03/25/22 06:59 97 Nasal Cannula 3.00 03/25/22 04:08 36.0 03/25/22 04:05 79 16 142/71 (94) 98 Nasal Cannula 3.00 03/25/22 02:42 96 Nasal Cannula 3.00 03/25/22 01:00 80 03/25/22 00:10 36.2 03/25/22 00:04 93 16 133/78 (96) 95 Nasal Cannula 3.00 03/24/22 21:46 96 Nasal Cannula 3.00 03/24/22 20:23 94 Nasal Cannula 2.50 03/24/22 19:44 36.4 88 20 149/96 (113) 92 Nasal Cannula 3.00 03/24/22 19:00 93 03/24/22 18:45 94 Nasal Cannula 2.00 03/24/22 17:29 2.50 03/24/22 15:32 36.2 81 19 132/69 (90) 91 Nasal Cannula 2.00 03/24/22 14:21 92 Nasal Cannula 2.00 03/24/22 13:00 72 16 154/87 (109) 91 Nasal Cannula 2.00 03/24/22 13:00 72 I & O 03/25/22 07:00 Intake Total 600 ml Output Total 1775 ml Balance -1175 ml Capillary Refill : Less Than 3 Seconds General Appearance: No Apparent Distress HEENT: PERRL/EOMI Neck: Full Range of Motion Respiratory: Chest Non Tender, Rhonci Cardiovascular: Regular Rate, Rhythm Gastrointestinal: normal bowel sounds, non tender, soft Extremity: Normal Capillary Refill Neurologic/Psychiatric: Alert, Oriented x3 Skin: Normal Color Lymphatic: No Adenopathy Results Lab Laboratory Tests 03/24/22 20:28: Glucometer 158H 03/25/22 03:51: White Blood Count 7.7, Red Blood Count 4.37, Hemoglobin 10.1L, Hematocrit 35, Mean Corpuscular Volume 80, Mean Corpuscular Hemoglobin 23L, Mean Corpuscular Hemoglobin Concent 29L, Red Cell Distribution Width 17.7H, Platelet Count 200, Mean Platelet Volume 10.1, Sodium Level 142, Potassium Level 4.1, Chloride Level 105, Carbon Dioxide Level 26, Anion Gap 11, Blood Urea Nitrogen 10, Creatinine 0.93, Estimat Glomerular Filtration Rate 60, BUN/Creatinine Ratio 11, Glucose Level 122H, Calcium Level 9.3, Corrected Calcium 9.6, Total Bilirubin 0.6, Aspartate Amino Transf (AST/SGOT) 20, Alanine Aminotransferase (ALT/SGPT) 13, Alkaline Phosphatase 123, Total Protein 7.1, Albumin 3.6 03/25/22 11:36: Glucometer 132H Assessment/Plan Assessment/Plan Assess & Plan/Chief Complaint sx anemia with rectal bleed and hx GERD. EGD and colonoscopy today. LISSA GENAO MD Mar 25, 2022 12:39
[2022-03-25] MEDS ORDERED: proPOfol 200 MG/20 ML (DIPRIVAN) VIAL IV ONE ×2 (12:57→13:31)
[2022-03-25] MEDS ORDERED: KETAMINE 50 MG/5 ML SYRINGE ONE (12:57)
[2022-03-25] MEDS ORDERED: LIDOCAINE JELLY 2% 6 ML SYRINGE ONE (13:02)
--- NOTE | 2022-03-25 13:55 | Progress Note-Post Operative ---
Post-Operative Progess Note Surgeon (s)/Frame Tender (s) Surgeon LISSA GENAO MD Frame Tender: none Pre-Operative Diagnosis symptomatic anemia with GI bleed Post-Operative Diagnosis reflux esophagitis(grade B), moderate HH(3cm), moderate gastritis. stage 2-3 ext and int hemorrhoids, moderate sigmoid diverticulosis. small HP polyp asc colon(2mm), no active bleed. Procedure & Operative Findings Date of Procedure 03/25/22 Procedure Performed/Findings EGD with bx. colonoscopy with bx. Anesthesia Type mac Estimated Blood Loss Estimated blood loss (mL): minimal Specimens/Packing Specimens Removed ge jxn, antrum, asc colon polyp LISSA GENAO MD Mar 25, 2022 13:55
--- NOTE | 2022-03-25 15:02 | Anesthesia-General Post-Op ---
MAC Patient Condition Mental Status/LOC: Same as Preop Cardiovascular: Satisfactory Nausea/Vomiting: Absent Respiratory: Satisfactory Pain: Controlled Complications: Absent Post Op Complications Complications None Follow Up Care/Instructions Patient Instructions None needed. Anesthesiology Discharge Order Discharge Order Patient was doing well after the procedure with no complaints, stable vital signs, no apparent adverse anesthesia problems. No complications reported per nursing. RYAN RUEDA DO Mar 25, 2022 15:02
[2022-03-25] MEDS: AtorvaSTATin TABLET 10 MG TABLET PO SCH (20:42)
[2022-03-25] MEDS: ALPRAZolam 1 MG (XANAX) TAB PO PRN (20:42)
[2022-03-25] MEDS ORDERED: NON-FORMULARY MEDICATION 1 EA EA (Escitalopram Oxalate 20 MG) PO SCH (21:00)
[2022-03-25] MEDS ORDERED: NON-FORMULARY MEDICATION 1 EA EA (Simvastatin 20 MG) PO SCH (21:00)
--- NOTE | 2022-03-25 21:03 | OPERATIVE REPORT ---
DATE OF SERVICE: 03/25/2022 ATTENDING PRIMARY CARE PHYSICIAN: Amber Figueroa MD PREOPERATIVE DIAGNOSIS: Symptomatic anemia. POSTOPERATIVE DIAGNOSES: Reflux esophagitis [place] grade B, moderate size hiatal hernia approximately 3 cm in size. Moderate gastritis. No active bleeding. Chronic between stage II to III external and internal hemorrhoids, moderate sigmoid diverticulosis. Again, no active bleed. Small hyperplastic polyp of the ascending colon. PROCEDURE: EGD with biopsy, colonoscopy with polypectomy with hot biopsy forceps. SURGEON:. Lissa Genao MD ANESTHESIA: Monitored anesthesia care. ESTIMATED BLOOD LOSS: Minimal. FINDINGS: Reflux esophagitis [place] grade B, moderate size hiatal hernia approximately 3 cm in size. Moderate gastritis. No active bleeding. Chronic between stage II to III external and internal hemorrhoids, moderate sigmoid diverticulosis. Again, no active bleed. Small hyperplastic polyp of the ascending colon. DISPOSITION: The patient tolerated the procedure well. INDICATIONS: The patient is an 87-year-old female who presented with generalized weakness and shortness of breath especially upon exertion. She does have a number of medical problems including atrial fibrillation, COPD, congestive heart failure as well as pulmonary hypertension. She had recent blood work drawn and she was in the normal range of 12; however, upon this admission, her hemoglobin was 7.7. She does not report any known issues with hematemesis, no coffee-ground emesis as well as no red blood per rectum, no dark tarry stools. She does note on occasion when she does have constipation, she will notice a small amount of self-limited red blood per rectum. She does not report any family history of colon cancer. DESCRIPTION OF PROCEDURE: The patient was brought to the endoscopy suite and laid in the left lateral decubitus position. After adequate IV pain and sedative medications and monitored anesthesia care, the mouthpiece was applied. The endoscope was then placed in the mouth to visualize the pharynx and hypopharyngeal region. The endoscope was then gently intubated his esophageal opening and the esophagus insufflated. The endoscope was then advanced through the first, second and third portions of the esophagus. At the level of the GE junction, reflux esophagitis [place] grade B identified. No ulcers or strictures identified in this region. A biopsy was taken with forceps with visualization of good hemostasis. Endoscope was then advanced into the stomach and the endoscope retroflexed visualizing a moderate-sized hiatal hernia approximately 3 cm in size. There was a moderate severity gastritis noted towards the stomach antrum, however, no formal ulcerations or any bleeding. A biopsy was taken of the antrum to rule out H. pylori with visualization with good hemostasis. The endoscope was then advanced through the pylorus and the first and second portion of the duodenum, which appeared normal. Endoscope was then slowly withdrawn, taking a second look and suctioning all residual air with no additional findings. A digital rectal examination was performed which revealed chronic between stage II and III external and internal hemorrhoids with no active bleeding. Normal sphincter tone was felt and there were no palpable masses. The endoscope was then intubated into the anus, and rectum gently insufflated. The endoscope was then advanced through the valves of Juarez of the rectum with no polyps or neoplasms identified. Through the sigmoid colon, a moderate sigmoid diverticulosis identified. There were no signs of any acute or chronic bleeding. The endoscope was then advanced through the remainder of the descending and transverse colon to the ascending colon where a small hyperplastic polyp was identified and this was biopsied and destroyed with forceps and electrocautery with visualization with good hemostasis. The endoscope was then advanced through the cecum, which was normal. The endoscope was then slowly withdrawn taking a second look and suctioning of residual air with no additional findings. The patient tolerated the procedure well. We will recommend the necessary lifestyle and dietary accommodations including avoidance of caffeinated beverages, spicy, greasy and acidic foods as well as smaller more frequent meals and avoidance of eating at night. We will also change her omeprazole to 40 mg daily. We will also recommend a high-fiber diet with a fiber supplement, which should equal to exceed 25 to 30 grams daily as well as significant amounts of water to promote soft consistency stools on a daily basis. We feel that the likely cause of the blood loss was due to internal hemorrhoidal bleeding and being on an anticoagulant. If she proceeds with a high fiber diet and her stools are soft all the time and there is low pressure through the anus this should prevent the internal hemorrhoidal flareups and the bleeding. From our standpoint, her normal anticoagulation regimen can be started today. From a colonoscopy standpoint if she is asymptomatic, she does not need another one for the next 10 years. Job ID: [id number] DocumentID: [id number] Dictated Date: 03/25/2022 13:50:45 Dog Bather Date: 03/25/2022 21:01:00 Dictated By: LISSA GENAO MD
[2022-03-26] VITALS (9 sets, daily range): BP systolic 111–151; BP diastolic 61–84
[2022-03-26] MEDS: RT-ALBUTEROL/IPRATROPIUM 3 ML (DUONEB) VIAL INH SCH ×6 (02:27→22:27)
[2022-03-26] MEDS: CATHETER FLUSH 10 ML SYR IVP SCH ×3 (06:14→20:27)
[2022-03-26] MEDS: KCL 20 MEQ TAB (K-DUR) PO SCH ×3 (06:17→18:08)
[2022-03-26] MEDS: inSUlin ASPART (NovoLOG) 1 UNIT/0.01 ML (CHARGE PER UNIT) SC SCH ×4 (06:17→20:27)
--- NOTE | 2022-03-26 07:45 | Progress Note ---
Subjective Subjective Date Seen by Provider: Mar 26, 2022 Time Seen by Provider: 07:40 pt reports that she is upset because she does not want to go to the alf. She wants to be able to go home or with one of her other kids - her son in [place] or her DTR in [place]. her DTR- Belkis that she lives with, states that she does not feel like her mom is safe at home alone, and she cannot be with her mom all of the time. She states that her mom will be manipulative stating that she does 'everything right" at home, and then doesn't do anything at home like she is instructed to do. Review of Systems General: No Chills; Fatigue Pulmonary: Dyspnea; No Cough Cardiovascular: No: Chest Pain, Palpitations Gastrointestinal: No: Nausea, Vomiting, Abdominal Pain Neurological: Weakness, Confusion Objective Exam Vital Signs Vital Signs Date Time Temp Pulse Resp B/P (MAP) Pulse Ox O2 Delivery O2 Flow Rate FiO2 03/26/22 06:59 91 03/26/22 06:23 92 Nasal Cannula 3.00 03/26/22 05:59 87 17 122/74 (90) 95 Nasal Cannula 3.00 03/26/22 03:17 37.0 87 30 125/61 (82) 95 Nasal Cannula 3.00 3.00 03/26/22 02:28 Nasal Cannula 3.00 03/26/22 01:00 89 03/26/22 00:00 82 30 129/75 (93) 94 Nasal Cannula 3.00 03/25/22 23:31 36.4 92 24 112/66 (81) 93 Nasal Cannula 3.00 3.00 03/25/22 22:50 95 Nasal Cannula 3.00 03/25/22 21:00 96 Nasal Cannula 2.50 03/25/22 20:38 95 25 134/73 (93) Nasal Cannula 3.00 03/25/22 19:54 36.1 91 18 134/82 (99) 95 Nasal Cannula 3.00 03/25/22 19:00 98 03/25/22 18:54 95 Nasal Cannula 3.00 03/25/22 15:54 36.0 94 16 148/67 (94) 96 Nasal Cannula 3.00 03/25/22 15:13 95 Nasal Cannula 3.00 03/25/22 13:45 36.50195 84 18 95 Nasal Cannula 3.00 03/25/22 13:40 36.74663 86 18 98 OxyMask 10.00 03/25/22 12:03 86 03/25/22 12:00 36.7 80 18 133/88 (103) 93 2.50 03/25/22 10:18 95 Nasal Cannula 3.00 03/25/22 09:00 94 Nasal Cannula 2.50 03/25/22 08:00 36.1 89 14 143/91 (108) 94 2.50 I & O 03/26/22 07:00 Intake Total 1250 ml Output Total 875 ml Balance 375 ml General Appearance: No Apparent Distress, WD/WN HEENT: PERRL/EOMI Neck: Full Range of Motion Respiratory: Chest Non Tender, Rhonci Cardiovascular: Regular Rate, Rhythm Gastrointestinal: Normal Bowel Sounds, Non Tender, Soft Rectal: Deferred Back: No CVA Tenderness Extremity: Normal Capillary Refill Neurologic/Psychiatric: Alert, Oriented x3 Skin: Normal Color Lymphatic: No Adenopathy Results Lab Laboratory Tests 03/25/22 11:36: Glucometer 132H 03/25/22 15:49: Glucometer 161H 03/25/22 21:05: Glucometer 226H 03/26/22 05:37: Glucometer 185H Assessment/Plan Assessment/Plan Admission Dx 1. Acute Respiratory Distress 2. 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 Acute on Chronic Anemia 4. Atrial Fibrillation 5. DMII 6. GER 7. Debility 8. Neuropathy Assessment and Plan 1. Acute Respiratory Distress -currently on oxygen at 2L NC, start SVNs with duoneb 2. 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 Acute on Chronic Anemia - Hb improved from admission - EGD/Colonoscopy with Dr. aMnning yesterday showed likely source of blood loss to be internal hemorrhoidal bleeding on OAC, but no active bleeding was found - Protonix BID 4. Atrial Fibrillation -has been off eliquis in past due to recurrent falls and recently stopped due to rectal bleeding - Cardiology consulted, recommends patient be off OAC until possible GI bleed is evaluated - Surgery recommends patient be restarted on normal OAC 5. DMII -on accuchecks with SSI, daughter states her blood sugar was low yesterday 6. GER - has not had a formal sleep study due to patient being uncomfortable with CPAP mask previously - will try to have patient try again during this hospitalization 7. Chronic Pulmonary Hypertension - likely due to GER 8. Debility -will start PT/OT once stable 9. Neuropathy -resume gabapentin 10. Hypertension - controlled 11. Hyperlipidemia - maintained on statin 12. CKD 3a - monitor kidney function and renally dose all medications 13. Internal Hemorrhoids - Patient is advised to make some lifestyle changes such as incorporating high fiber diet with increased water intake to decrease pressure in the anus and bleeding from hemorrhoids Admission Dx 1. Acute Respiratory Distress 2. 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 Acute on Chronic Anemia 4. Atrial Fibrillation 5. DMII 6. GER 7. Debility 8. Neuropathy Clinical Quality Measures Admission Status Admission Dx 1. Acute Respiratory Distress 2. 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 Acute on Chronic Anemia 4. Atrial Fibrillation 5. DMII 6. GER 7. Debility 8. Neuropathy Supervisory-Addendum Brief Verification & Attestation Participated in pt care: history, MDM, physical Personally performed: exam, history, MDM, supervision of care Care discussed with: Medical Student Procedures: n/a Results interpretation: Verified all documentation Acute respiratory distress COPD exacerbation CHF - combined systolic and diastolic Pulmonary hypertension GER Afib Rectal bleeding from hemorrhoids Chronic anticoagulant use Pt had an episode of confusion, hypersomnolence -she was placed on bipap for about 30 minutes, woke up and refused the mask and bipap and "has been fine ever since". This evening I had a yazan discussion with Rochelle and she reports that she is able to make the decision that she does not want to be at a alf and shouldn't have to go to one. 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 We have already initiated a alf admission request, I have advised Rochelle that I will ask social worker palliative care to get a family meeting put together if possible so we can discuss the plan for discharge/home/move with other family member, etc. ROXANNE IBARRA Mar 26, 2022 07:45 DEANGELO FOSTER MD Mar 26, 2022 22:52
[2022-03-26] MEDS: IRON SUCROSE 200 MG/10 ML (VENOFER) VIAL IV SCH (08:06)
--- NOTE | 2022-03-26 08:58 | Physical Therapy Progress Note ---
Therapy Progress Note Attempted physical therapy, nurse states patient is too lethargic to participate at this time, will check back this afternoon if able. WOO MCGILL PT Mar 26, 2022 08:58
[2022-03-26 09:22] LABS: ABG BASE EXCESS 4.5 MMOL/L (-2.5-2.5); ABG OXYGEN SATURATION 99 % (94-100); ABG PCO2 46 MMHG (35-45); ABG PH 7.41 (7.37-7.43); ABG PO2 92 MMHG (79-93); ABG TCO2 30.2 MMOL/L (21.0-31.0)
[2022-03-26 09:25] LABS: ALLENS TEST YES-POS; INSPIRED O2 2 L NC; PATIENT TEMP 37; VENTILATOR NO
--- NOTE | 2022-03-26 09:37 | Progress Note - Cardiology ---
Cardiology SOAP Progress Note Objective: I&O/Vital Signs 03/26/22 03/26/22 03/26/22 03/26/22 01:00 02:28 03:17 05:59 Temp 37.0 Pulse 89 87 87 Resp 30 17 B/P (MAP) 125/61 (82) 122/74 (90) Pulse Ox 95 95 O2 Delivery Nasal Cannula Nasal Cannula Nasal Cannula O2 Flow Rate 3.00 3.00 3.00 3.00 03/26/22 03/26/22 03/26/22 03/26/22 06:23 06:59 07:38 09:47 Temp 36.7 Pulse 91 91 86 Resp 14 18 B/P (MAP) 111/68 (82) Pulse Ox 92 90 98 O2 Delivery Nasal Cannula Nasal Cannula O2 Flow Rate 3.00 3.00 30.00 03/26/22 11:52 Temp 36.8 Pulse 97 Resp 17 B/P (MAP) 128/80 (96) Pulse Ox 94 O2 Delivery Nasal Cannula O2 Flow Rate 3.00 03/26/22 00:00 Intake Total 950 ml Output Total 675 ml Balance 275 ml Weight (Pounds): 212 Weight (Ounces): 7.0 Weight (Calculated Kilograms): 96.219295 Constitutional: AAO x 3, well-developed, well-nourished Respiratory: No accessory muscle use; chest expansion is symmetric, other (basal coarse and fine crackles) Cardiovascular: irregularly irregular, S1 and S2, systolic murmur (soft LIZA at card base) Gastrointestional: No tender; soft; No guarding, No rebound; audible bowel sounds Extremities: No clubbing, No cyanosis, No significant edema Neurologic/Psychiatric: oriented x 3, other (moves all limbs equally) Skin: No rash on exposed areas, No ulcerations on exposed areas Results/Procedures: Labs Laboratory Tests 03/25/22 15:49: Glucometer 161H 03/25/22 21:05: Glucometer 226H 03/26/22 05:37: Glucometer 185H 03/26/22 08:19: Glucometer 163H 03/26/22 09:15: Blood Gas Puncture Site LT RADIAL, Blood Gas Patient Temperature 37, Arterial Blood pH 7.41, Arterial Blood Partial Pressure CO2 46H, Arterial Blood Partial Pressure O2 92, Arterial Blood HCO3 29H, Arterial Blood Total CO2 30.2, Arterial Blood Oxygen Saturation 99, Arterial Blood Base Excess 4.5H, Zac Test YES-POS, Blood Gas Ventilator Setting NO, Blood Gas Inspired Oxygen 2 L NC 03/26/22 10:23: White Blood Count 9.3, Red Blood Count 3.90, Hemoglobin 8.9L, Hematocrit 31L, Mean Corpuscular Volume 81, Mean Corpuscular Hemoglobin 23L, Mean Corpuscular Hemoglobin Concent 28L, Red Cell Distribution Width 18.3H, Platelet Count 180, Mean Platelet Volume 9.9 03/26/22 10:55: Glucometer 180H A/P: Assessment: Ac resp failure, multifactorial: ac on ch CHF & cor pulmonale, marked anemia, probable obesity-hypovent/GER Acute on chronic CHF and cor pulmonale - 2D Echo done 01/27/[address] Barker showing mild diffuse hypokinesia with EF 45%. Dilated right and left atrium, moderate MR, severe TR. PA 75-80mmHg. Severe pulmonary hypertension with dilated right heart chambers. Significant deterioration compared to the previous echo from 2020. Marked anemia at time of admission requiring transfusion - improved H/H stable - GI bleed suspected, oral anticoag withheld, treated blood transfusion on 03/22/22 - Endoscopy of 03-25-[address] Manning showed Reflux esophagitis [place] grade B, moderate size hiatal hernia approximately 3 cm in size. Moderate gastritis. No active bleeding. Chronic between stage II to III external and internal hemorrhoids, moderate sigmoid diverticulosis. Again, no active bleed. Small hyperplastic polyp of the ascending colon. Chronic permanent atrial fibrillation - twelve-lead EKG was done showing atrial fibrillation with right bundle branch block. - [id number] score 4, yearly risk of stroke without oral anticoagulation is 4%. - Off Eliquis 5mg BID because suspected bleeding leading to anemia Pulmonary HTN - likely d/t obesity hypoventilation syndrome/GER Generalized weakness - continue PT/OT Hypertension - controlled Hyperlipidemia - maintained on statin CKD 3a - monitored and managed by the [facility] DM II - management per Medical services Peripheral neuropathy Chronic pain syndrome Plan: * Please resume OAC for stroke prophylaxis when ok from Medical/Surgical standpoint * Advise sleep studies as outpt * Monitor labs SB ERDDY Mar 26, 2022 09:37
[2022-03-26] MEDS: GABAPENTIN 100 MG (NEURONTIN) CAP PO SCH ×3 (10:03→20:27)
[2022-03-26] MEDS: FUROSEMIDE 20 MG (LASIX) TAB PO SCH (10:03)
[2022-03-26 10:32] LABS: HEMATOCRIT 31 % (35-52); HEMOGLOBIN 8.9 g/dL (11.5-16.0); MEAN CORPUSCULAR HEMOGLOBIN 23 pg (25-34); MEAN CORPUSCULAR HGB CONC 28 g/dL (32-36); MEAN CORPUSCULAR VOLUME 81 fL (80-99); MEAN PLATELET VOLUME 9.9 fL (9.0-12.2); PLATELET COUNT 180 10^3/uL (130-400); WHITE BLOOD COUNT 9.3 10^3/uL (4.3-11.0)
--- NOTE | 2022-03-26 12:01 | Physical Therapy Daily Note ---
PT Daily Note-Current Subjective Pt. in bed and states she would love to get out of bed. Pt. states she is hungry "They tell me I turned down my breakfast", " I dont remember that" Pain Location: No Pain Reported Section J - Health Conditions 1. Rarely or not at all 2. Occasionally 3. Frequently 4. Almost constantly 8. Unable to answer Pain Effect on Sleep: 1 Pain Interference with Therapy: 1 Pain Interference w/Day-to-Day: 1 Mental Status Attachments: Oxygen, [place] Catheter, Other-See Comments (O2 sat mon, EKG, BP cuff) Transfers SCALE: Activities may be completed with or without assistive devices. 0-Khmbcuguft-rqztbyp completes the activity by him/herself with no assistance from a helper. 5-Set-up or Clean-up Assistance-helper sets up or cleans up; patient completes activity. [place] assists only prior to or following the activity. 4-Supervision or Touching Assistance-helper provides verbal cues and/or touching/steadying and/or contact guard assistance as patient completes activity. Assistance may be provided throughout the activity or intermittently. 3-Partial/Moderate Assistance-helper does LESS THAN HALF the effort. [place] lifts, holds or supports trunk or limbs, but provides less than half the effort. 2-Substantial/Maximal Assistance-helper does MORE THAN HALF the effort. [place] lifts or holds trunk or limbs and provides more than half the effort. 4-Efojyrsjb-damoki does ALL the effort. Patient does none of the effort to complete the activity. Or, the assistance of 2 or more helpers is required for the patient to complete the activity. If activity was not attempted, code reason: 7-Patient Refused. 9-Not Applicable-not attempted and the patient did not perform the activity before the current illness, exacerbation or injury. 10-Not Attempted due to Environmental Limitations-(lack of equipment, weather restraints, etc.). 88-Not Attempted due to Medical Conditions or Safety Concerns. Roll Left & Right (QC): 6 Lying to Sitting/Side of Bed(Q: 6 Sit to Stand (QC): 6 Chair/Rfi-cr-Fwkbo Xfer(QC): 6 pt. moved about for TRFs with CGA to SBA only , needing assist for O2 and all th e tubing which was very tangled Weight Bearing Right Lower Extremity: Right Full Weight Bearing Left Lower Extremity: Left Full Weight Bearing Gait Training Does the Patient Walk?: Yes Walk 10 feet (QC): 4 Walk 50 ft with 2 Turns(QC): 4 Walk 150 ft (QC): 4 Gait Persons Needed: 1 Gait Assistive Device: FWW slow, some dyspnea noted, needed standing rest breaks, O2 sats >90% throughout Rx Exercises Seated Therapy Exercises: Ankle pumps, Sit to stand, Long arc quads, Hip flexion, Hip abd/add Seated Reps: 12 Treatments bed mob, TRFs, gait, seated ex Assessment Current Status: Good Progress PT Longterm Goals Longterm Goals PT Longterm Goals Time Frame: Apr 08, 2022 Roll Left & Right (QC): 6 Sit to Lying (QC): 6 Lying-Sitting on Side/Bed(QC): 6 Sit to Stand (QC): 6 Chair/Gyr-vb-Wlfie Xfer(QC): 6 Toilet Transfer (QC): 6 Does the Patient Walk: Yes Walk 10 feet (QC): 6 Walk 50ft with 2 Turns (QC): 6 Walk 150 ft (QC): 6 1 Step (curb) (QC): 4 4 Steps (QC): 4 PT Plan Treatment/Plan Treatment Plan: Continue Plan of Care Treatment Plan: Bed Mobility, Education, Functional Activity Patricia, Functional Strength, Group Therapy, Gait, Safety, Therapeutic Exercise, Transfers Treatment Duration: Apr 12, 2022 Frequency: 6 times per week Estimated Hrs Per Day: .25 hour per day Patient and/or Family Agrees t: Yes Safety Risks/Education Patient Education: Gait Training, Transfer Techniques, Correct Positioning, Disease Process, Safety Issues Teaching Recipient: Patient Teaching Methods: Demonstration, Discussion Response to Teaching: Verbalize Understanding, Return Demonstration, Reinforcement Needed Time Time In: 1110 Time Out: 1133 DATE: Mar 26, 2022 Total Billed Treatment Time: 23 Total Billed Treatment 1,GT15m,EX8m NADIR SANTOS [employer] Mar 26, 2022 12:01
--- NOTE | 2022-03-26 12:25 | Progress Note - Cardiology ---
Cardiology SOAP Progress Note Subjective: Does not report any symptoms, appears groggy Objective: I&O/Vital Signs 03/26/22 03/26/22 03/26/22 03/26/22 01:00 02:28 03:17 05:59 Temp 37.0 Pulse 89 87 87 Resp 30 17 B/P (MAP) 125/61 (82) 122/74 (90) Pulse Ox 95 95 O2 Delivery Nasal Cannula Nasal Cannula Nasal Cannula O2 Flow Rate 3.00 3.00 3.00 3.00 03/26/22 03/26/22 03/26/22 03/26/22 06:23 06:59 07:38 09:47 Temp 36.7 Pulse 91 91 86 Resp 14 18 B/P (MAP) 111/68 (82) Pulse Ox 92 90 98 O2 Delivery Nasal Cannula Nasal Cannula O2 Flow Rate 3.00 3.00 30.00 03/26/22 11:52 Temp 36.8 Pulse 97 Resp 17 B/P (MAP) 128/80 (96) Pulse Ox 94 O2 Delivery Nasal Cannula O2 Flow Rate 3.00 03/26/22 00:00 Intake Total 950 ml Output Total 675 ml Balance 275 ml Weight (Pounds): 212 Weight (Ounces): 7.0 Weight (Calculated Kilograms): 96.789603 Constitutional: well-developed, well-nourished, other (drowsy, diminished responsiveness) Respiratory: No accessory muscle use; chest expansion is symmetric, other (basal coarse and fine crackles) Cardiovascular: irregularly irregular, S1 and S2, systolic murmur (soft LIZA at card base) Gastrointestional: No tender; soft; No guarding, No rebound; audible bowel sounds Extremities: No clubbing, No cyanosis, No significant edema Neurologic/Psychiatric: oriented x 3, other (moves all limbs equally) Skin: No rash on exposed areas, No ulcerations on exposed areas Results/Procedures: Labs Laboratory Tests 03/25/22 15:49: Glucometer 161H 03/25/22 21:05: Glucometer 226H 03/26/22 05:37: Glucometer 185H 03/26/22 08:19: Glucometer 163H 03/26/22 09:15: Blood Gas Puncture Site LT RADIAL, Blood Gas Patient Temperature 37, Arterial Blood pH 7.41, Arterial Blood Partial Pressure CO2 46H, Arterial Blood Partial Pressure O2 92, Arterial Blood HCO3 29H, Arterial Blood Total CO2 30.2, Arterial Blood Oxygen Saturation 99, Arterial Blood Base Excess 4.5H, Zac Test YES-POS, Blood Gas Ventilator Setting NO, Blood Gas Inspired Oxygen 2 L NC 03/26/22 10:23: White Blood Count 9.3, Red Blood Count 3.90, Hemoglobin 8.9L, Hematocrit 31L, Mean Corpuscular Volume 81, Mean Corpuscular Hemoglobin 23L, Mean Corpuscular Hemoglobin Concent 28L, Red Cell Distribution Width 18.3H, Platelet Count 180, Mean Platelet Volume 9.9 03/26/22 10:55: Glucometer 180H A/P: Assessment: Drowsiness/confusion on 03/26/22 Ac resp failure, multifactorial: ac on ch CHF & cor pulmonale, marked anemia, probable obesity-hypovent/GER Acute on chronic CHF and cor pulmonale - 2D Echo done 01/27/[address] Barker showing mild diffuse hypokinesia with EF 45%. Dilated right and left atrium, moderate MR, severe TR. PA 75-80mmHg. Severe pulmonary hypertension with dilated right heart chambers. Significant deterioration compared to the previous echo from 2020. Marked anemia at time of admission requiring transfusion - improved H/H stable - GI bleed suspected, oral anticoag withheld, treated blood transfusion on 03/22/22 - Endoscopy of 03-25-[address] Manning showed Reflux esophagitis [place] grade B, moderate size hiatal hernia approximately 3 cm in size. Moderate gastritis. No active bleeding. Chronic between stage II to III external and internal hemorrhoids, moderate sigmoid diverticulosis. Again, no active bleed. Small hyperplastic polyp of the ascending colon. Chronic permanent atrial fibrillation - twelve-lead EKG was done showing atrial fibrillation with right bundle branch block. - [id number] score 4, yearly risk of stroke without oral anticoagulation is 4%. - Off Eliquis 5mg BID because suspected bleeding leading to anemia Pulmonary HTN - likely d/t obesity hypoventilation syndrome/GER Generalized weakness - continue PT/OT Hypertension - controlled Hyperlipidemia - maintained on statin CKD 3a - [facility] - management per Medical services Peripheral neuropathy Chronic pain syndrome Plan: * I have advised her nurse to report patient's drowsiness to her primary attending * Please resume OAC for stroke prophylaxis when ok from Medical/Surgical standpoint * Advise sleep studies as outpt * Monitor labs HARITHA ESPARZA MD FACP [facility] CCDS Mar 26, 2022 12:24
[2022-03-26] MEDS: AtorvaSTATin TABLET 10 MG TABLET PO SCH (20:27)
[2022-03-27] MEDS: RT-ALBUTEROL/IPRATROPIUM 3 ML (DUONEB) VIAL INH SCH ×6 (02:30→21:41)
[2022-03-27] MEDS: inSUlin ASPART (NovoLOG) 1 UNIT/0.01 ML (CHARGE PER UNIT) SC SCH ×4 (05:52→20:46)
[2022-03-27] MEDS: KCL 20 MEQ TAB (K-DUR) PO SCH ×3 (05:52→17:15)
[2022-03-27] MEDS: CATHETER FLUSH 10 ML SYR IVP SCH ×3 (05:53→20:47)
--- NOTE | 2022-03-27 07:57 | Progress Note ---
Subjective Subjective Date Seen by Provider: Mar 27, 2022 Time Seen by Provider: 07:51 Patient is being followed up for Acute Respiratory Failure, CHF, Anemia, A fib, DM II, and Weakness. Today, she is awake watching television. She states she was able to get good rest last night. Denies any pain or shortness of breath at this time. Her Hb today is decreased from 10.1 back down to 8.9. Review of Systems General: No Chills; Fatigue Pulmonary: No Dyspnea, No Cough Cardiovascular: No: Chest Pain, Palpitations Gastrointestinal: No: Nausea, Vomiting, Abdominal Pain Neurological: Weakness Objective Exam Vital Signs Vital Signs Date Time Temp Pulse Resp B/P (MAP) Pulse Ox O2 Delivery O2 Flow Rate FiO2 03/27/22 07:34 96 Nasal Cannula 3.00 03/27/22 04:10 36.3 Nasal Cannula 3.00 03/27/22 02:30 96 Nasal Cannula 3.00 03/27/22 01:00 96 03/26/22 23:00 36.4 87 14 151/84 (106) 93 Nasal Cannula 3.00 03/26/22 22:27 95 Nasal Cannula 3.00 03/26/22 20:55 93 Nasal Cannula 3.00 03/26/22 19:21 36.4 84 17 144/77 (99) 93 Nasal Cannula 3.00 3.00 03/26/22 19:00 90 03/26/22 15:48 36.4 88 17 134/76 (95) 94 Nasal Cannula 3.00 3.00 03/26/22 13:34 93 03/26/22 11:52 36.8 97 17 128/80 (96) 94 Nasal Cannula 3.00 03/26/22 09:47 86 18 98 30.00 03/26/22 09:00 Nasal Cannula 3.00 I & O 03/27/22 07:00 Intake Total 955 ml Output Total 2450 ml Balance -1495 ml General Appearance: No Apparent Distress, WD/WN HEENT: PERRL/EOMI, Moist Mucous Membranes Neck: Full Range of Motion Respiratory: Chest Non Tender, No Respiratory Distress, Rhonci Cardiovascular: Regular Rate, Rhythm, Systolic Murmur Gastrointestinal: Normal Bowel Sounds, Non Tender, Soft Rectal: Deferred Back: No CVA Tenderness, No Vertebral Tenderness Extremity: Normal Capillary Refill, No Calf Tenderness, No Pedal Edema Neurologic/Psychiatric: Alert, Oriented x3 Skin: Normal Color Lymphatic: No Adenopathy Results Lab Laboratory Tests 03/26/22 08:19: Glucometer 163H 03/26/22 09:15: Blood Gas Puncture Site LT RADIAL, Blood Gas Patient Temperature 37, Arterial Blood pH 7.41, Arterial Blood Partial Pressure CO2 46H, Arterial Blood Partial Pressure O2 92, Arterial Blood HCO3 29H, Arterial Blood Total CO2 30.2, Arterial Blood Oxygen Saturation 99, Arterial Blood Base Excess 4.5H, Zac Test YES-POS, Blood Gas Ventilator Setting NO, Blood Gas Inspired Oxygen 2 L NC 03/26/22 10:23: White Blood Count 9.3, Red Blood Count 3.90, Hemoglobin 8.9L, Hematocrit 31L, Mean Corpuscular Volume 81, Mean Corpuscular Hemoglobin 23L, Mean Corpuscular Hemoglobin Concent 28L, Red Cell Distribution Width 18.3H, Platelet Count 180, Mean Platelet Volume 9.9 03/26/22 10:55: Glucometer 180H 03/26/22 15:51: Glucometer 199H 03/26/22 20:21: Glucometer 190H 03/27/22 05:48: Glucometer 190H Assessment/Plan Assessment/Plan Admission Dx 1. Acute Respiratory Distress 2. 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 Acute on Chronic Anemia 4. Atrial Fibrillation 5. DMII 6. GER 7. Debility 8. Neuropathy Assessment and Plan 1. Acute Respiratory Distress -currently on oxygen at 2L NC, start SVNs with duoneb 2. 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 Acute on Chronic Anemia - Hb is 8.9 today, patient receiving iron infusions - EGD/Colonoscopy with Dr. Manning yesterday showed likely source of blood loss to be internal hemorrhoidal bleeding on OAC, but no active bleeding was found - Protonix BID 4. Atrial Fibrillation -has been off eliquis in past due to recurrent falls and recently stopped due to rectal bleeding - Cardiology consulted, recommends patient be off OAC until possible GI bleed is evaluated - Surgery recommends patient be restarted on normal OAC after finding no active bleeding 5. DMII -on accuchecks with SSI 6. GER - has not had a formal sleep study due to patient being uncomfortable with CPAP mask previously - will try to have patient try again during this hospitalization 7. Chronic Pulmonary Hypertension - likely due to GER 8. Debility - PT/OT once stable 9. Neuropathy -resume gabapentin 10. Hypertension - controlled 11. Hyperlipidemia - maintained on statin 12. CKD 3a - monitor kidney function and renally dose all medications 13. Internal Hemorrhoids - Patient is advised to make some lifestyle changes such as incorporating high fiber diet with increased water intake to decrease pressure in the anus and bleeding from hemorrhoids Patient does not want to go to [place], she would rather live with one of her children. SS consulted to set up a family meeting to discuss patient's options for DC. Admission Dx 1. Acute Respiratory Distress 2. 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 Acute on Chronic Anemia 4. Atrial Fibrillation 5. DMII 6. GER 7. Debility 8. Neuropathy Clinical Quality Measures Admission Status Admission Dx 1. Acute Respiratory Distress 2. 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 Acute on Chronic Anemia 4. Atrial Fibrillation 5. DMII 6. GER 7. Debility 8. Neuropathy Supervisory-Addendum Brief Verification & Attestation Participated in pt care: history, MDM, physical Personally performed: exam, history, MDM, supervision of care Care discussed with: Medical Student Procedures: n/a Results interpretation: Verified all documentation Acute respiratory distress COPD exacerbation CHF - combined systolic and diastolic Pulmonary hypertension GER Afib Rectal bleeding from hemorrhoids Chronic anticoagulant use JASEN improved, COPD stable, CHF improved as well. Chronic PUlmonary HTN - supportive care, Lasix as needed. GER - pt refuses CPAP Afib - chronic and on anticoagulation. Would like pt to go to alf, she is resistant - will have family meeting tomorrow to discuss the plan. ROXANNE IBARRA Mar 27, 2022 07:57 DEANGELO FOSTER MD Mar 28, 2022 17:11
[2022-03-27 08:00] VITALS: BP 143/95
[2022-03-27] MEDS: GABAPENTIN 100 MG (NEURONTIN) CAP PO SCH ×3 (08:10→20:46)
[2022-03-27] MEDS: FUROSEMIDE 20 MG (LASIX) TAB PO SCH (08:10)
[2022-03-27] MEDS: DOCUSATE SODIUM 100 MG (COLACE) CAP PO SCH ×2 (09:20→20:47)
[2022-03-27] MEDS: APIXABAN 5 MG (ELIQUIS) TABLET PO SCH ×2 (09:20→20:47)
--- NOTE | 2022-03-27 10:18 | Physical Therapy Daily Note ---
PT Daily Note-Current Subjective Patient very alert and agrees to PT. Pain Section J - Health Conditions 1. Rarely or not at all 2. Occasionally 3. Frequently 4. Almost constantly 8. Unable to answer Pain Effect on Sleep: 1 Pain Interference with Therapy: 1 Pain Interference w/Day-to-Day: 1 Mental Status Patient Orientation: Normal For Age Attachments: Oxygen, [place] Catheter Transfers SCALE: Activities may be completed with or without assistive devices. 7-Lhnusfivrg-jforvje completes the activity by him/herself with no assistance from a helper. 5-Set-up or Clean-up Assistance-helper sets up or cleans up; patient completes activity. [place] assists only prior to or following the activity. 4-Supervision or Touching Assistance-helper provides verbal cues and/or touching/steadying and/or contact guard assistance as patient completes activity. Assistance may be provided throughout the activity or intermittently. 3-Partial/Moderate Assistance-helper does LESS THAN HALF the effort. [place] lifts, holds or supports trunk or limbs, but provides less than half the effort. 2-Substantial/Maximal Assistance-helper does MORE THAN HALF the effort. [place] lifts or holds trunk or limbs and provides more than half the effort. 2-Yybabtynm-vrsnkx does ALL the effort. Patient does none of the effort to complete the activity. Or, the assistance of 2 or more helpers is required for the patient to complete the activity. If activity was not attempted, code reason: 7-Patient Refused. 9-Not Applicable-not attempted and the patient did not perform the activity before the current illness, exacerbation or injury. 10-Not Attempted due to Environmental Limitations-(lack of equipment, weather restraints, etc.). 88-Not Attempted due to Medical Conditions or Safety Concerns. Sit to Stand (QC): 4 Weight Bearing Right Lower Extremity: Right Full Weight Bearing Left Lower Extremity: Left Full Weight Bearing Gait Training Distance: 200' Walk 10 feet (QC): 4 Walk 50 ft with 2 Turns(QC): 4 Walk 150 ft (QC): 4 Gait Assistive Device: FWW slow, steady, functional gait sequence Assessment Patient remains up in recliner with needs met. Family present. PT Bone Char Kiln Operator Goals Bone Char Kiln Operator Goals PT Bone Char Kiln Operator Goals Time Frame: Apr 08, 2022 Roll Left & Right (QC): 6 Sit to Lying (QC): 6 Lying-Sitting on Side/Bed(QC): 6 Sit to Stand (QC): 6 Chair/Vqj-di-Bumup Xfer(QC): 6 Toilet Transfer (QC): 6 Does the Patient Walk: Yes Walk 10 feet (QC): 6 Walk 50ft with 2 Turns (QC): 6 Walk 150 ft (QC): 6 1 Step (curb) (QC): 4 4 Steps (QC): 4 PT Plan Treatment/Plan Treatment Plan: Continue Plan of Care Treatment Plan: Bed Mobility, Education, Functional Activity Patricia, Functional Strength, Group Therapy, Gait, Safety, Therapeutic Exercise, Transfers Treatment Duration: Apr 12, 2022 Frequency: 6 times per week Estimated Hrs Per Day: .25 hour per day Patient and/or Family Agrees t: Yes Time Time In: 946 Time Out: 957 DATE: Mar 27, 2022 Total Billed Treatment Time: 11 Total Billed Treatment 1 visit FA 11 min ISAMAR JADE PT Mar 27, 2022 10:17
[2022-03-27 10:41] LABS: HEMATOCRIT 35 % (35-52); HEMOGLOBIN 10.1 g/dL (11.5-16.0); MEAN CORPUSCULAR HEMOGLOBIN 23 pg (25-34); MEAN CORPUSCULAR HGB CONC 29 g/dL (32-36); MEAN CORPUSCULAR VOLUME 81 fL (80-99); MEAN PLATELET VOLUME 9.6 fL (9.0-12.2); PLATELET COUNT 174 10^3/uL (130-400); WHITE BLOOD COUNT 8.1 10^3/uL (4.3-11.0)
[2022-03-27 12:00] VITALS: BP 142/85
[2022-03-27 16:00] VITALS: BP 145/73
--- NOTE | 2022-03-27 16:44 | Progress Note - Cardiology ---
Cardiology SOAP Progress Note Subjective: Some gen weakness No focal weakness No n/v/d No cp or palp Shortness of breath better Objective: I&O/Vital Signs 03/27/22 03/27/22 03/27/22 03/27/22 07:00 07:34 08:00 09:00 Temp 36.0 Pulse 95 97 Resp 14 B/P (MAP) 143/95 (111) Pulse Ox 96 93 94 O2 Delivery Nasal Cannula Nasal Cannula Nasal Cannula O2 Flow Rate 3.00 3.00 3.00 03/27/22 03/27/22 12:00 12:35 Temp 36.4 Pulse 86 89 Resp 14 B/P (MAP) 142/85 (104) Pulse Ox 91 O2 Delivery Nasal Cannula O2 Flow Rate 3.00 03/27/22 00:00 Intake Total 705 ml Output Total 1450 ml Balance -745 ml Weight (Pounds): 212 Weight (Ounces): 7.0 Weight (Calculated Kilograms): 96.120634 Constitutional: well-developed, well-nourished, other (drowsy, diminished responsiveness) Respiratory: No accessory muscle use; chest expansion is symmetric, other (basal coarse and fine crackles) Cardiovascular: irregularly irregular, S1 and S2, systolic murmur (soft LIZA at card base) Gastrointestional: No tender; soft; No guarding, No rebound; audible bowel sounds Extremities: No clubbing, No cyanosis, No significant edema Neurologic/Psychiatric: oriented x 3, other (moves all limbs equally) Skin: No rash on exposed areas, No ulcerations on exposed areas Results/Procedures: Labs Laboratory Tests 03/26/22 20:21: Glucometer 190H 03/27/22 05:48: Glucometer 190H 03/27/22 10:30: White Blood Count 8.1, Red Blood Count 4.32, Hemoglobin 10.1L, Hematocrit 35, Mean Corpuscular Volume 81, Mean Corpuscular Hemoglobin 23L, Mean Corpuscular Hemoglobin Concent 29L, Red Cell Distribution Width 19.2H, Platelet Count 174, Mean Platelet Volume 9.6 03/27/22 10:51: Glucometer 191H 03/27/22 16:17: Glucometer 268H Laboratory Tests 03/26/22 10:23 03/27/22 10:30 A/P: Assessment: Ac resp failure, multifactorial: ac on ch CHF & cor pulmonale, marked anemia, probable obesity-hypovent/GER - Drowsiness/confusion on 03/26/22, resolved with breathing treatments Acute on chronic CHF and cor pulmonale - 2D Echo done 01/27/[address] Barker showing mild diffuse hypokinesia with EF 45%. Dilated right and left atrium, moderate MR, severe TR. PA 75-80mmHg. Severe pulmonary hypertension with dilated right heart chambers. Significant deterioration compared to the previous echo from 2020. Marked anemia at time of admission requiring transfusion - improved H/H stable - GI bleed suspected, oral anticoag withheld, treated blood transfusion on 03/22/22 - Endoscopy of 03-25-[address] Manning showed Reflux esophagitis [place] grade B, moderate size hiatal hernia approximately 3 cm in size. Moderate gastritis. No active bleeding. Chronic between stage II to III external and internal hemorrhoids, moderate sigmoid diverticulosis. Again, no active bleed. Small hyperplastic polyp of the ascending colon. Chronic permanent atrial fibrillation - twelve-lead EKG was done showing atrial fibrillation with right bundle branch block. - [id number] score 4, yearly risk of stroke without oral anticoagulation is 4%. - Off Eliquis 5mg BID because suspected bleeding leading to anemia Pulmonary HTN - likely d/t obesity hypoventilation syndrome/GER Generalized weakness - continue PT/OT Hypertension - controlled Hyperlipidemia - maintained on statin CKD 3a - [facility] - management per Medical services Peripheral neuropathy Chronic pain syndrome Plan: * Resume OAC * Advise sleep studies as outpt * Monitor labs HARITHA ESPARZA MD FACP [facility] CCDS Mar 27, 2022 16:44
[2022-03-27 19:00] VITALS: BP 143/87
[2022-03-27] MEDS: AtorvaSTATin TABLET 10 MG TABLET PO SCH (20:47)
[2022-03-27] MEDS: ALPRAZolam 1 MG (XANAX) TAB PO PRN (21:31)
[2022-03-28] VITALS (7 sets, daily range): BP systolic 134–160; BP diastolic 63–77
[2022-03-28] MEDS: RT-ALBUTEROL/IPRATROPIUM 3 ML (DUONEB) VIAL INH SCH ×6 (02:29→21:55)
[2022-03-28] MEDS: ACETAMINOPHEN 325 MG TABLET PO PRN (02:47)
[2022-03-28 04:53] LABS: HEMATOCRIT 32 % (35-52); HEMOGLOBIN 9.1 g/dL (11.5-16.0); MEAN CORPUSCULAR HEMOGLOBIN 23 pg (25-34); MEAN CORPUSCULAR HGB CONC 28 g/dL (32-36); MEAN CORPUSCULAR VOLUME 81 fL (80-99); MEAN PLATELET VOLUME 10.3 fL (9.0-12.2); PLATELET COUNT 170 10^3/uL (130-400); WHITE BLOOD COUNT 9.4 10^3/uL (4.3-11.0)
[2022-03-28 05:22] LABS: CALCIUM 9.2 MG/DL (8.5-10.1); CREATININE SERUM 0.8 MG/DL (0.60-1.30); POTASSIUM 4.1 MMOL/L (3.6-5.0)
[2022-03-28] MEDS: KCL 20 MEQ TAB (K-DUR) PO SCH ×3 (06:15→18:35)
[2022-03-28] MEDS: CATHETER FLUSH 10 ML SYR IVP SCH ×3 (06:16→21:19)
[2022-03-28] MEDS: inSUlin ASPART (NovoLOG) 1 UNIT/0.01 ML (CHARGE PER UNIT) SC SCH ×4 (06:16→21:24)
[2022-03-28] MEDS: IRON SUCROSE 200 MG/10 ML (VENOFER) VIAL IV SCH (10:09)
[2022-03-28] MEDS: GABAPENTIN 100 MG (NEURONTIN) CAP PO SCH ×3 (10:10→21:19)
[2022-03-28] MEDS: FUROSEMIDE 20 MG (LASIX) TAB PO SCH (10:10)
[2022-03-28] MEDS: DOCUSATE SODIUM 100 MG (COLACE) CAP PO SCH ×2 (10:10→21:19)
[2022-03-28] MEDS: APIXABAN 5 MG (ELIQUIS) TABLET PO SCH ×2 (10:10→21:19)
--- NOTE | 2022-03-28 10:12 | Physical Therapy Progress Note ---
Therapy Progress Note Patient very lethargic this a.m. PT unable to wake patient. Nursing aware and confirms. Will attempt later today is schedule allow. ISAMAR JADE PT Mar 28, 2022 10:12
--- NOTE | 2022-03-28 10:58 | Progress Note ---
Subjective Subjective Date Seen by Provider: Mar 28, 2022 Time Seen by Provider: 11:00 Pt reports that she is doing well, less short of breath, improved exercise capacity, but still diminished overall. Pt denies abdominal pain, nausea, constipation. She is tearful today discussing moving to the [facility] for now, afraid that she will "loose everything" Review of Systems General: No Chills; Fatigue Pulmonary: No Dyspnea, No Cough Cardiovascular: No: Chest Pain, Palpitations Gastrointestinal: No: Nausea, Vomiting, Abdominal Pain Neurological: Weakness Objective Exam Vital Signs Vital Signs Date Time Temp Pulse Resp B/P (MAP) Pulse Ox O2 Delivery O2 Flow Rate FiO2 03/28/22 08:50 36.3 98 16 142/64 (90) 96 Nasal Cannula 3.00 03/28/22 07:37 97 Nasal Cannula 3.00 03/28/22 04:00 36.8 92 21 140/72 (94) 92 Nasal Cannula 3.00 03/28/22 01:00 90 03/28/22 00:04 36.6 96 20 134/77 (96) 92 Nasal Cannula 3.00 03/27/22 21:41 96 Nasal Cannula 3.00 03/27/22 20:26 93 Nasal Cannula 3.00 03/27/22 19:05 95 Nasal Cannula 3.00 03/27/22 19:00 95 03/27/22 19:00 36.4 92 22 143/87 (105) 94 Nasal Cannula 3.00 03/27/22 16:00 36.9 85 10 145/73 (97) 95 Nasal Cannula 3.00 03/27/22 12:35 89 03/27/22 12:00 36.4 86 14 142/85 (104) 91 Nasal Cannula 3.00 I & O 03/28/22 07:00 Intake Total 1190 ml Output Total 3325 ml Balance -2135 ml General Appearance: No Apparent Distress, WD/WN HEENT: PERRL/EOMI, Moist Mucous Membranes Respiratory: Chest Non Tender, No Respiratory Distress, Rhonci Cardiovascular: Regular Rate, Rhythm, Systolic Murmur Gastrointestinal: Normal Bowel Sounds, Non Tender, Soft Rectal: Deferred Back: No CVA Tenderness, No Vertebral Tenderness Extremity: Normal Capillary Refill, No Calf Tenderness, No Pedal Edema Neurologic/Psychiatric: Alert, Oriented x3 Skin: Normal Color Lymphatic: No Adenopathy Results Lab Laboratory Tests 03/27/22 16:17: Glucometer 268H 03/27/22 20:37: Glucometer 241H 03/28/22 04:35: White Blood Count 9.4, Red Blood Count 3.96, Hemoglobin 9.1L, Hematocrit 32L, Mean Corpuscular Volume 81, Mean Corpuscular Hemoglobin 23L, Mean Corpuscular Hemoglobin Concent 28L, Red Cell Distribution Width 19.4H, Platelet Count 170, Mean Platelet Volume 10.3, Sodium Level 140, Potassium Level 4.1, Chloride Level 108H, Carbon Dioxide Level 24, Anion Gap 8, Blood Urea Nitrogen 8, Creatinine 0.80, Estimat Glomerular Filtration Rate 72, BUN/Creatinine Ratio 10, Glucose Level 176H, Calcium Level 9.2 Assessment/Plan Assessment/Plan Assessment and Plan Acute respiratory distress COPD exacerbation CHF - combined systolic and diastolic Pulmonary hypertension GER Afib Rectal bleeding from hemorrhoids Chronic anticoagulant use JASEN improved, COPD stable, CHF improved as well. Chronic PUlmonary HTN - supportive care, Lasix as needed. GER - pt refuses CPAP Afib - chronic and on anticoagulation. Family meeting at 11AM with her DTR - Belkis present, DTR - Ankita and two sons Gunnar and another son out of town on the phone, Son Agustin not on phone or present. Aníbal is not happy about the plan, but has agreed to the plan as outlined below: The patient is to be discharged to [facility], likely on Thursday or Thursday since she finally agreed to this plan today (thursday) and it is too late to be able to get her to the [facility] today. The patient's family will work toward getting her on a Medicaid plan that has community support which will get paid caregiving available to her in her home. DEANGELO FOSTER MD Mar 28, 2022 10:58
--- NOTE | 2022-03-28 12:05 | Progress Note - Cardiology ---
Cardiology SOAP Progress Note Subjective: Sitting up in recliner at the bedside States she feels well No c/o CP, palpitations Objective: I&O/Vital Signs 03/30/22 03/30/22 03/30/22 03/31/22 21:00 22:27 23:22 01:00 Temp 36.5 Pulse 94 100 Resp 16 B/P (MAP) 133/67 (89) Pulse Ox 96 95 97 O2 Delivery Nasal Cannula Nasal Cannula Nasal Cannula O2 Flow Rate 3.00 3.00 1.50 03/31/22 03/31/22 03/31/22 03/31/22 03:12 04:06 07:06 07:19 Temp 36.4 Pulse 97 100 Resp 16 B/P (MAP) 158/75 (102) Pulse Ox 96 94 91 O2 Delivery Nasal Cannula Nasal Cannula Nasal Cannula O2 Flow Rate 3.00 3.00 3.00 03/31/22 07:47 Temp 36.6 Pulse 94 Resp 16 B/P (MAP) 146/77 (100) Pulse Ox 90 O2 Delivery Nasal Cannula O2 Flow Rate 3.00 03/31/22 00:00 Intake Total 1950 ml Balance 1950 ml Weight (Pounds): 212 Weight (Ounces): 7.0 Weight (Calculated Kilograms): 96.974989 Constitutional: well-developed, well-nourished, other (drowsy, diminished responsiveness) Respiratory: No accessory muscle use; chest expansion is symmetric, other (basal coarse and fine crackles) Cardiovascular: irregularly irregular, S1 and S2, systolic murmur (soft LIZA at card base) Gastrointestional: No tender; soft; No guarding, No rebound; audible bowel sounds Extremities: No clubbing, No cyanosis, No significant edema Neurologic/Psychiatric: oriented x 3, other (moves all limbs equally) Skin: No rash on exposed areas, No ulcerations on exposed areas Results/Procedures: Labs Laboratory Tests 03/30/22 11:08: Glucometer 315H 03/30/22 15:33: Glucometer 352H 03/30/22 19:22: Glucometer 306H 03/31/22 05:29: Glucometer 188H A/P: Assessment: Ac resp failure, multifactorial: ac on ch CHF & cor pulmonale, marked anemia, probable obesity-hypovent/GER - Drowsiness/confusion on 03/26/22, resolved with breathing treatments Acute on chronic CHF and cor pulmonale - 2D Echo done 01/27/[address] Barker showing mild diffuse hypokinesia with EF 45%. Dilated right and left atrium, moderate MR, severe TR. PA 75-80mmHg. Severe pulmonary hypertension with dilated right heart chambers. Significant deterioration compared to the previous echo from 2020. Marked anemia at time of admission requiring transfusion - improved H/H stable - GI bleed suspected, oral anticoag withheld, treated blood transfusion on 03/22/22 - Endoscopy of 03-25-[address] Manning showed Reflux esophagitis [place] grade B, moderate size hiatal hernia approximately 3 cm in size. Moderate gastritis. No active bleeding. Chronic between stage II to III external and internal hemorrhoids, moderate sigmoid diverticulosis. Again, no active bleed. Small hyperplastic polyp of the ascending colon. Chronic permanent atrial fibrillation - twelve-lead EKG was done showing atrial fibrillation with right bundle branch block. - [id number] score 4, yearly risk of stroke without oral anticoagulation is 4%. - Eliquis 5mg BID has been resumed as of 03-28-22 Pulmonary HTN - likely d/t obesity hypoventilation syndrome/GER Generalized weakness - continue PT/OT Hypertension - controlled Hyperlipidemia - maintained on statin CKD 3a - monitored and managed by the [facility] [place] DM II - management per Medical services Peripheral neuropathy Chronic pain syndrome Plan: * OAC has been resumed * Advise sleep studies as outpt * Monitor labs * Ok to discharge from cardiac stand point with out f/u SB REDDY Mar 28, 2022 12:05
--- NOTE | 2022-03-28 17:05 | Progress Note - Cardiology ---
Cardiology SOAP Progress Note Subjective: Gen weakness No cp No shortness of breath at rest No n/v/d Objective: I&O/Vital Signs 03/28/22 03/28/22 03/28/22 03/28/22 07:37 08:50 09:00 12:00 Temp 36.3 36.2 Pulse 98 76 Resp 16 18 B/P (MAP) 142/64 (90) 158/72 (100) Pulse Ox 97 96 94 98 O2 Delivery Nasal Cannula Nasal Cannula Nasal Cannula Nasal Cannula O2 Flow Rate 3.00 3.00 3.00 3.00 03/28/22 03/28/22 14:58 15:08 Temp 36.8 Pulse 88 Resp 18 B/P (MAP) 135/63 (87) Pulse Ox 94 94 O2 Delivery Nasal Cannula Nasal Cannula O2 Flow Rate 3.00 3.00 03/28/22 00:00 Intake Total 950 ml Output Total 1925 ml Balance -975 ml Weight (Pounds): 212 Weight (Ounces): 7.0 Weight (Calculated Kilograms): 96.485914 Constitutional: well-developed, well-nourished, other (drowsy, diminished responsiveness) Respiratory: No accessory muscle use; chest expansion is symmetric, other (basal coarse and fine crackles) Cardiovascular: irregularly irregular, S1 and S2, systolic murmur (soft LIZA at card base) Gastrointestional: No tender; soft; No guarding, No rebound; audible bowel sounds Extremities: No clubbing, No cyanosis, No significant edema Neurologic/Psychiatric: oriented x 3, other (moves all limbs equally) Skin: No rash on exposed areas, No ulcerations on exposed areas Results/Procedures: Labs Laboratory Tests 03/27/22 20:37: Glucometer 241H 03/28/22 04:35: White Blood Count 9.4, Red Blood Count 3.96, Hemoglobin 9.1L, Hematocrit 32L, Mean Corpuscular Volume 81, Mean Corpuscular Hemoglobin 23L, Mean Corpuscular Hemoglobin Concent 28L, Red Cell Distribution Width 19.4H, Platelet Count 170, Mean Platelet Volume 10.3, Sodium Level 140, Potassium Level 4.1, Chloride Level 108H, Carbon Dioxide Level 24, Anion Gap 8, Blood Urea Nitrogen 8, Creatinine 0.80, Estimat Glomerular Filtration Rate 72, BUN/Creatinine Ratio 10, Glucose Level 176H, Calcium Level 9.2 03/28/22 11:42: Glucometer 241H 03/28/22 15:13: Glucometer 252H Laboratory Tests 03/27/22 10:30 03/28/22 04:35 A/P: Assessment: Ac resp failure, multifactorial: ac on ch CHF & cor pulmonale, marked anemia, probable obesity-hypovent/GER - Drowsiness/confusion on 03/26/22, resolved with breathing treatments Acute on chronic CHF and cor pulmonale - 2D Echo done 01/27/[address] Barker showing mild diffuse hypokinesia with EF 45%. Dilated right and left atrium, moderate MR, severe TR. PA 75-80mmHg. Severe pulmonary hypertension with dilated right heart chambers. Significant deterioration compared to the previous echo from 2020. Marked anemia at time of admission requiring transfusion - improved H/H stable - GI bleed suspected, oral anticoag withheld, treated blood transfusion on 03/22/22 - Endoscopy of 03-25-[address] Manning showed Reflux esophagitis [place] grade B, moderate size hiatal hernia approximately 3 cm in size. Moderate gastritis. No active bleeding. Chronic between stage II to III external and internal hemorrhoids, moderate sigmoid diverticulosis. Again, no active bleed. Small hyperplastic polyp of the ascending colon. Chronic permanent atrial fibrillation - twelve-lead EKG was done showing atrial fibrillation with right bundle branch block. - [id number] score 4, yearly risk of stroke without oral anticoagulation is 4%. - Eliquis 5mg BID has been resumed as of 03-28-22 Pulmonary HTN - likely d/t obesity hypoventilation syndrome/GER Generalized weakness - continue PT/OT Hypertension - controlled Hyperlipidemia - maintained on statin CKD 3a - monitored and managed by the [facility] [place] DM II - management per Medical services Peripheral neuropathy Chronic pain syndrome Plan: * OAC has been resumed * Advise sleep studies as outpt * Monitor labs * Ok to discharge from cardiac standpoint with out f/u HARITHA ESPARZA MD FACP FAC CCDS Mar 28, 2022 17:05
[2022-03-28] MEDS: AtorvaSTATin TABLET 10 MG TABLET PO SCH (21:19)
[2022-03-29] MEDS: RT-ALBUTEROL/IPRATROPIUM 3 ML (DUONEB) VIAL INH SCH ×6 (03:15→22:24)
[2022-03-29 04:17] VITALS: BP 135/60
[2022-03-29] MEDS: CATHETER FLUSH 10 ML SYR IVP SCH ×3 (06:07→20:58)
[2022-03-29] MEDS: KCL 20 MEQ TAB (K-DUR) PO SCH ×3 (06:07→18:06)
[2022-03-29] MEDS: inSUlin ASPART (NovoLOG) 1 UNIT/0.01 ML (CHARGE PER UNIT) SC SCH ×4 (06:07→20:57)
[2022-03-29 07:16] VITALS: BP 145/70
[2022-03-29] MEDS: FUROSEMIDE 20 MG (LASIX) TAB PO SCH (09:00)
[2022-03-29] MEDS: DOCUSATE SODIUM 100 MG (COLACE) CAP PO SCH ×2 (09:00→20:57)
[2022-03-29] MEDS: GABAPENTIN 100 MG (NEURONTIN) CAP PO SCH ×3 (09:00→20:57)
[2022-03-29] MEDS: APIXABAN 5 MG (ELIQUIS) TABLET PO SCH ×2 (09:01→20:57)
--- NOTE | 2022-03-29 10:13 | Physical Therapy Daily Note ---
PT Daily Note-Current Subjective States that she is doing good and would like to walk. Pain Section J - Health Conditions 1. Rarely or not at all 2. Occasionally 3. Frequently 4. Almost constantly 8. Unable to answer Pain Effect on Sleep: 1 Pain Interference with Therapy: 1 Pain Interference w/Day-to-Day: 1 Transfers SCALE: Activities may be completed with or without assistive devices. 3-Dqmoqmitbv-nckpapi completes the activity by him/herself with no assistance from a helper. 5-Set-up or Clean-up Assistance-helper sets up or cleans up; patient completes activity. [place] assists only prior to or following the activity. 4-Supervision or Touching Assistance-helper provides verbal cues and/or touching/steadying and/or contact guard assistance as patient completes activity. Assistance may be provided throughout the activity or intermittently. 3-Partial/Moderate Assistance-helper does LESS THAN HALF the effort. [place] lifts, holds or supports trunk or limbs, but provides less than half the effort. 2-Substantial/Maximal Assistance-helper does MORE THAN HALF the effort. [place] lifts or holds trunk or limbs and provides more than half the effort. 6-Lbrxaiirb-jxuqld does ALL the effort. Patient does none of the effort to complete the activity. Or, the assistance of 2 or more helpers is required for the patient to complete the activity. If activity was not attempted, code reason: 7-Patient Refused. 9-Not Applicable-not attempted and the patient did not perform the activity be fore the current illness, exacerbation or injury. 10-Not Attempted due to Environmental Limitations-(lack of equipment, weather restraints, etc.). 88-Not Attempted due to Medical Conditions or Safety Concerns. Sit to Stand (QC): 5 Weight Bearing Right Lower Extremity: Right Full Weight Bearing Left Lower Extremity: Left Full Weight Bearing Gait Training Does the Patient Walk?: Yes Distance: 60 Walk 10 feet (QC): 5 Walk 50 ft with 2 Turns(QC): 5 Gait Persons Needed: 1 Gait Assistive Device: FWW Assessment Current Status: Excellent Progress Patient did well with ambulation and had minimal SOB. PT Floors Buffer Goals [facility] Goals PT Floors Buffer Goals Time Frame: Apr 08, 2022 Roll Left & Right (QC): 6 Sit to Lying (QC): 6 Lying-Sitting on Side/Bed(QC): 6 Sit to Stand (QC): 6 Chair/Dpe-sm-Jceka Xfer(QC): 6 Toilet Transfer (QC): 6 Does the Patient Walk: Yes Walk 10 feet (QC): 6 Walk 50ft with 2 Turns (QC): 6 Walk 150 ft (QC): 6 1 Step (curb) (QC): 4 4 Steps (QC): 4 PT Plan Treatment/Plan Treatment Plan: Continue Plan of Care Treatment Plan: Bed Mobility, Education, Functional Activity Patricia, Functional Strength, Group Therapy, Gait, Safety, Therapeutic Exercise, Transfers Treatment Duration: Apr 12, 2022 Frequency: 6 times per week Estimated Hrs Per Day: .25 hour per day Patient and/or Family Agrees t: Yes Time Time In: 954 Time Out: 1005 DATE: Mar 29, 2022 Total Billed Treatment Time: 10 Total Billed Treatment 1, GT x 10' CHELLE RUEDA PT Mar 29, 2022 10:13
[2022-03-29 11:15] VITALS: BP 143/64
--- NOTE | 2022-03-29 13:06 | Progress Note - Cardiology ---
Cardiology SOAP Progress Note Subjective: No cp or palp or syncope No n/v/d No shortness of breath at rest Gen weakness and malaise are present Objective: I&O/Vital Signs 03/29/22 03/29/22 03/29/22 03/29/22 04:17 07:00 07:16 07:23 Temp 37.2 36.8 Pulse 96 96 93 Resp 16 20 B/P (MAP) 135/60 (85) 145/70 (95) Pulse Ox 97 97 98 O2 Delivery Nasal Cannula Nasal Cannula Nasal Cannula O2 Flow Rate 3.00 3.00 3.00 3.00 03/29/22 03/29/22 03/29/22 03/29/22 09:00 10:18 11:15 12:56 Temp 36.6 Pulse 102 101 Resp 18 B/P (MAP) 143/64 (90) Pulse Ox 95 94 95 O2 Delivery Nasal Cannula Nasal Cannula Nasal Cannula O2 Flow Rate 3.00 3.00 3.00 3.00 03/29/22 00:00 Intake Total 1622 ml Balance 1622 ml Weight (Pounds): 212 Weight (Ounces): 7.0 Weight (Calculated Kilograms): 96.535434 Constitutional: well-developed, well-nourished, other (drowsy, diminished responsiveness) Respiratory: No accessory muscle use; chest expansion is symmetric, other (basal coarse and fine crackles) Cardiovascular: irregularly irregular, S1 and S2, systolic murmur (soft LIZA at card base) Gastrointestional: No tender; soft; No guarding, No rebound; audible bowel sounds Extremities: No clubbing, No cyanosis, No significant edema Neurologic/Psychiatric: oriented x 3, other (moves all limbs equally) Skin: No rash on exposed areas, No ulcerations on exposed areas Results/Procedures: Labs Laboratory Tests 03/28/22 15:13: Glucometer 252H 03/29/22 05:50: Glucometer 253H 03/29/22 11:17: Glucometer 254H Laboratory Tests 03/28/22 04:35 A/P: Assessment: Ac resp failure, multifactorial: ac on ch CHF & cor pulmonale, marked anemia, probable obesity-hypovent/GER - Drowsiness/confusion on 03/26/22, resolved with breathing treatments Acute on chronic CHF and cor pulmonale - 2D Echo done 01/27/[address] Barker showing mild diffuse hypokinesia with EF 45%. Dilated right and left atrium, moderate MR, severe TR. PA 75-80mmHg. Severe pulmonary hypertension with dilated right heart chambers. Significant deterioration compared to the previous echo from 2020. Marked anemia at time of admission requiring transfusion - improved H/H stable - GI bleed suspected, oral anticoag withheld, treated blood transfusion on 03/22/22 - Endoscopy of 03-25-[address] Manning showed Reflux esophagitis [place] grade B, moderate size hiatal hernia approximately 3 cm in size. Moderate gastritis. No active bleeding. Chronic between stage II to III external and internal hemorrhoids, moderate sigmoid diverticulosis. Again, no active bleed. Small hyperplastic polyp of the ascending colon. Chronic permanent atrial fibrillation - twelve-lead EKG was done showing atrial fibrillation with right bundle branch block. - [id number] score 4, yearly risk of stroke without oral anticoagulation is 4%. - Eliquis 5mg BID has been resumed as of 03-28-22 Pulmonary HTN - likely d/t obesity hypoventilation syndrome/GER Generalized weakness - continue PT/OT Hypertension - controlled Hyperlipidemia - maintained on statin CKD 3a - monitored and managed by the [facility] [place] DM II - management per Medical services Peripheral neuropathy Chronic pain syndrome Plan: * OAC has been resumed * Dr Figueroa managing anemia * Advise sleep studies as outpt * Monitor labs * Ok to discharge from cardiac standpoint with out f/u [facility] Mar 29, 2022 13:06
[2022-03-29 16:03] VITALS: BP 150/78
[2022-03-29 19:09] VITALS: BP 155/84
--- NOTE | 2022-03-29 20:36 | Progress Note - Hospitalist ---
Subjective HPI/CC On Admission Date Seen by Provider: Mar 29, 2022 Time Seen by Provider: 11:05 Subjective/Events-last exam She is sitting in her chair. She denies shortness of breath. She has been eating and drinking. She has no complaints. She is tired and is dozing off during my visit. Objective Exam Vital Signs Vital Signs Date Time Temp Pulse Resp B/P (MAP) Pulse Ox O2 Delivery O2 Flow Rate FiO2 03/29/22 19:09 36.7 105 20 155/84 (107) 97 Nasal Cannula 3.00 03/23/22 22:02 94 Capillary Refill : Less Than 3 Seconds General Appearance: No Apparent Distress, Obese Respiratory: Lungs Clear, No Respiratory Distress Cardiovascular: Regular Rate, Rhythm, No Murmur Gastrointestinal: Normal Bowel Sounds, Soft Extremity: Normal Inspection, No Pedal Edema Neurologic/Psychiatric: Normal Mood/Affect, Motor Weakness Skin: Normal Color, Warm/Dry Results/Procedures Lab Patient resulted labs reviewed. Assessment/Plan Assessment and Plan Assess & Plan/Chief Complaint Acute respiratory failure with hypoxia COPD exacerbation CHF - combined systolic and diastolic Pulmonary hypertension GER Afib Rectal bleeding from hemorrhoids Iron deficiency anemia Chronic anticoagulant use Lasix Refuses CPAP Eliquis Iron supplementation Awaiting placement in [place] Diagnosis/Problems Diagnosis/Problems (1) Acute respiratory failure with hypoxia Status: Acute (2) COPD (chronic obstructive pulmonary disease) Status: Acute (3) PHT (pulmonary hypertension) (4) GER (obstructive sleep apnea) (5) Afib (6) ALEXIS (iron deficiency anemia) (7) CHF (congestive heart failure) Status: Acute (8) Obesity Status: Chronic MAYDA SMITH MD Mar 29, 2022 20:36
[2022-03-29] MEDS: AtorvaSTATin TABLET 10 MG TABLET PO SCH (20:57)
[2022-03-29 23:28] VITALS: BP 136/61
[2022-03-30] MEDS: RT-ALBUTEROL/IPRATROPIUM 3 ML (DUONEB) VIAL INH SCH ×6 (03:14→22:27)
[2022-03-30 03:34] VITALS: BP 122/61
[2022-03-30] MEDS: inSUlin ASPART (NovoLOG) 1 UNIT/0.01 ML (CHARGE PER UNIT) SC SCH ×4 (06:35→20:15)
[2022-03-30] MEDS: KCL 20 MEQ TAB (K-DUR) PO SCH ×3 (06:35→18:09)
[2022-03-30] MEDS: CATHETER FLUSH 10 ML SYR IVP SCH ×3 (06:36→20:15)
[2022-03-30 07:03] VITALS: BP 132/62
[2022-03-30] MEDS: APIXABAN 5 MG (ELIQUIS) TABLET PO SCH ×2 (08:52→20:14)
[2022-03-30] MEDS: IRON SUCROSE 200 MG/10 ML (VENOFER) VIAL IV SCH (08:52)
[2022-03-30] MEDS: GABAPENTIN 100 MG (NEURONTIN) CAP PO SCH ×3 (08:52→20:14)
[2022-03-30] MEDS: DOCUSATE SODIUM 100 MG (COLACE) CAP PO SCH ×2 (08:52→20:14)
[2022-03-30] MEDS: FUROSEMIDE 20 MG (LASIX) TAB PO SCH (08:52)
[2022-03-30 11:06] VITALS: BP 136/65
--- NOTE | 2022-03-30 13:45 | Progress Note - Cardiology ---
Cardiology SOAP Progress Note Subjective: Gen weakness and malaise No n/v/d No focal weakness No shortness of breath at rest No cp or palp or syncope Mild to mod swelling of lower legs Objective: I&O/Vital Signs 03/30/22 03/30/22 03/30/22 03/30/22 03:14 03:34 07:00 07:03 Temp 36.9 36.1 Pulse 109 110 100 Resp 16 18 B/P (MAP) 122/61 (81) 132/62 (85) Pulse Ox 95 97 93 O2 Delivery Nasal Cannula Nasal Cannula Nasal Cannula O2 Flow Rate 3.00 3.00 3.00 3.00 03/30/22 03/30/22 03/30/22 03/30/22 07:06 09:00 10:13 11:06 Temp 36.6 Pulse 97 Resp 20 B/P (MAP) 136/65 (88) Pulse Ox 93 94 94 95 O2 Delivery Nasal Cannula Nasal Cannula Nasal Cannula Nasal Cannula O2 Flow Rate 3.00 3.00 3.00 3.00 3.00 03/30/22 12:49 Pulse 87 03/29/22 23:59 Intake Total 1070 ml Balance 1070 ml Weight (Pounds): 212 Weight (Ounces): 7.0 Weight (Calculated Kilograms): 96.811738 Constitutional: well-developed, well-nourished, other (drowsy, diminished responsiveness) Respiratory: No accessory muscle use; chest expansion is symmetric, other (basal coarse and fine crackles) Cardiovascular: irregularly irregular, S1 and S2, systolic murmur (soft LIZA at card base) Gastrointestional: No tender; soft; No guarding, No rebound; audible bowel so unds Extremities: No clubbing, No cyanosis, No significant edema Neurologic/Psychiatric: oriented x 3, other (moves all limbs equally) Skin: No rash on exposed areas, No ulcerations on exposed areas Results/Procedures: Labs Laboratory Tests 03/29/22 16:08: Glucometer 293H 03/29/22 20:37: Glucometer 232H 03/30/22 05:41: Glucometer 214H 03/30/22 11:08: Glucometer 315H A/P: Assessment: Ac resp failure, multifactorial: ac on ch CHF & cor pulmonale, marked anemia, probable obesity-hypovent/GER - Drowsiness/confusion on 03/26/22, resolved with breathing treatments Acute on chronic CHF and cor pulmonale - 2D Echo done 01/27/[address] Barker showing mild diffuse hypokinesia with EF 45%. Dilated right and left atrium, moderate MR, severe TR. PA 75-80mmHg. Severe pulmonary hypertension with dilated right heart chambers. Significant deterioration compared to the previous echo from 2020. Marked anemia at time of admission requiring transfusion - improved H/H stable - GI bleed suspected, oral anticoag withheld, treated blood transfusion on 03/22/22 - Endoscopy of 03-25-[address] Manning showed Reflux esophagitis [place] grade B, moderate size hiatal hernia approximately 3 cm in size. Moderate gastritis. No active bleeding. Chronic between stage II to III external and internal hemorrhoids, moderate sigmoid diverticulosis. Again, no active bleed. Small hyperplastic polyp of the ascending colon. Chronic permanent atrial fibrillation - twelve-lead EKG was done showing atrial fibrillation with right bundle branch block. - [id number] score 4, yearly risk of stroke without oral anticoagulation is 4%. - Eliquis 5mg BID has been resumed as of 03-28-22 Pulmonary HTN - likely d/t obesity hypoventilation syndrome/GER Generalized weakness - continue PT/OT Hypertension - controlled Hyperlipidemia - maintained on statin CKD 3a - [facility] - [facility] per Medical services Peripheral neuropathy Chronic pain syndrome Plan: * OAC has been resumed. Dr Figueroa managing anemia * Advise sleep studies as outpt * Monitor labs * Ok to discharge from cardiac standpoint with out f/u HARITHA ESPARZA MD FACP FAC CCDS Mar 30, 2022 13:45
[2022-03-30 15:29] VITALS: BP 137/65
--- NOTE | 2022-03-30 17:03 | Progress Note - Hospitalist ---
Subjective HPI/CC On Admission Date Seen by Provider: Mar 30, 2022 Time Seen by Provider: 11:30 Subjective/Events-last exam She is feeling ok. She is sitting in her chair. She has no complaints. Objective Exam Vital Signs Vital Signs Date Time Temp Pulse Resp B/P (MAP) Pulse Ox O2 Delivery O2 Flow Rate FiO2 03/30/22 15:29 36.5 100 18 137/65 (89) 95 Nasal Cannula 3.00 Capillary Refill : Less Than 3 Seconds General Appearance: No Apparent Distress, Obese Respiratory: Lungs Clear, No Respiratory Distress Cardiovascular: Regular Rate, Rhythm, No Murmur Gastrointestinal: Normal Bowel Sounds, Soft Extremity: Normal Inspection, Pedal Edema, Other (wearing compression stockings) Neurologic/Psychiatric: Alert, Normal Mood/Affect Results/Procedures Lab Patient resulted labs reviewed. Assessment/Plan Assessment and Plan Assess & Plan/Chief Complaint Acute respiratory failure with hypoxia COPD exacerbation CHF - combined systolic and diastolic Pulmonary hypertension GER Afib Rectal bleeding from hemorrhoids Iron deficiency anemia Chronic anticoagulant use Lasix Refuses CPAP Eliquis Iron supplementation Awaiting placement in [place] T2DM Add Levemir Increase to sliding scale B Diagnosis/Problems Diagnosis/Problems (1) Acute respiratory failure with hypoxia Status: Acute (2) COPD (chronic obstructive pulmonary disease) Status: Acute (3) PHT (pulmonary hypertension) (4) GER (obstructive sleep apnea) (5) Afib (6) ALEXIS (iron deficiency anemia) (7) CHF (congestive heart failure) Status: Acute (8) Obesity Status: Chronic (9) T2DM (type 2 diabetes mellitus) Status: Acute Qualifiers: Diabetes mellitus senior care insulin use: with rat exterminator use Diabetes mellitus complication status: with hyperglycemia Qualified Codes: E11.65 - Type 2 diabetes mellitus with hyperglycemia; Z79.4 - long term care phlebotomist (current) use of insulin MAYDA SMITH MD Mar 30, 2022 17:02
[2022-03-30 19:25] VITALS: BP 140/84
[2022-03-30] MEDS: AtorvaSTATin TABLET 10 MG TABLET PO SCH (20:14)
[2022-03-30 23:22] VITALS: BP 133/67
[2022-03-31] MEDS: RT-ALBUTEROL/IPRATROPIUM 3 ML (DUONEB) VIAL INH SCH ×2 (03:12→07:06)
[2022-03-31 04:06] VITALS: BP 158/75
[2022-03-31] MEDS: inSUlin ASPART (NovoLOG) 1 UNIT/0.01 ML (CHARGE PER UNIT) SC SCH ×4 (05:33→20:31)
[2022-03-31] MEDS: KCL 20 MEQ TAB (K-DUR) PO SCH ×3 (06:03→18:02)
[2022-03-31] MEDS: CATHETER FLUSH 10 ML SYR IVP SCH ×3 (06:03→20:32)
[2022-03-31 07:47] VITALS: BP 146/77
--- NOTE | 2022-03-31 08:30 | Progress Note ---
Subjective Subjective Date Seen by Provider: Mar 31, 2022 Time Seen by Provider: 08:30 Pt reports that she is feeling fine - she was ambulating with the physical therapy staff today upon my evaluation. She states that she feels she is ready to go to the facility for rehab as soon as she is accepted. Review of Systems General: No Chills; Fatigue Pulmonary: No Dyspnea, No Cough Cardiovascular: No: Chest Pain, Palpitations Gastrointestinal: No: Nausea, Vomiting, Abdominal Pain Neurological: Weakness Objective Exam Vital Signs Vital Signs Date Time Temp Pulse Resp B/P (MAP) Pulse Ox O2 Delivery O2 Flow Rate FiO2 03/31/22 07:47 36.6 94 16 146/77 (100) 90 Nasal Cannula 3.00 03/31/22 07:19 100 03/31/22 07:06 91 Nasal Cannula 3.00 03/31/22 04:06 36.4 97 16 158/75 (102) 94 Nasal Cannula 3.00 03/31/22 03:12 96 Nasal Cannula 3.00 03/31/22 01:00 100 03/30/22 23:22 36.5 94 16 133/67 (89) 97 Nasal Cannula 1.50 03/30/22 22:27 95 Nasal Cannula 3.00 03/30/22 21:00 96 Nasal Cannula 3.00 03/30/22 19:25 36.6 105 18 140/84 (102) 96 Nasal Cannula 3.00 03/30/22 19:00 102 03/30/22 18:53 96 Nasal Cannula 3.00 03/30/22 15:29 36.5 100 18 137/65 (89) 95 Nasal Cannula 3.00 03/30/22 14:25 98 Nasal Cannula 3.00 03/30/22 12:49 87 03/30/22 11:06 36.6 97 20 136/65 (88) 95 Nasal Cannula 3.00 3.00 03/30/22 10:13 94 Nasal Cannula 3.00 03/30/22 09:00 94 Nasal Cannula 3.00 I & O 03/31/22 07:00 Intake Total 2100 ml Balance 2100 ml General Appearance: No Apparent Distress, Obese HEENT: PERRL/EOMI, Moist Mucous Membranes Respiratory: Lungs Clear, No Respiratory Distress Cardiovascular: Regular Rate, Rhythm, No Murmur Gastrointestinal: Normal Bowel Sounds, Soft Rectal: Deferred Back: No CVA Tenderness, No Vertebral Tenderness Extremity: Normal Inspection, Pedal Edema, Other Neurologic/Psychiatric: Alert, Normal Mood/Affect Skin: Normal Color, Warm/Dry Lymphatic: No Adenopathy Results Lab Laboratory Tests 03/30/22 11:08: Glucometer 315H 03/30/22 15:33: Glucometer 352H 03/30/22 19:22: Glucometer 306H 03/31/22 05:29: Glucometer 188H Assessment/Plan Assessment/Plan Assessment and Plan Acute respiratory distress COPD exacerbation CHF - combined systolic and diastolic Pulmonary hypertension GER Afib Rectal bleeding from hemorrhoids Chronic anticoagulant use JASEN improved, COPD stable, CHF improved as well. Chronic PUlmonary HTN - supportive care, Lasix as needed. GER - pt refuses CPAP Afib - chronic and on anticoagulation. Waiting on admission to the custodial - family discussion on Thursday of last week with the pt's children - all in agreement for placement of Rochel[facility] at [facility]. DEANGELO FOSTER MD Mar 31, 2022 08:30
[2022-03-31] MEDS: APIXABAN 5 MG (ELIQUIS) TABLET PO SCH ×2 (09:40→20:30)
[2022-03-31] MEDS: FUROSEMIDE 20 MG (LASIX) TAB PO SCH (09:40)
[2022-03-31] MEDS: GABAPENTIN 100 MG (NEURONTIN) CAP PO SCH ×3 (09:40→20:30)
[2022-03-31] MEDS: DOCUSATE SODIUM 100 MG (COLACE) CAP PO SCH ×2 (09:40→20:30)
--- NOTE | 2022-03-31 09:59 | Physical Therapy Daily Note ---
PT Daily Note-Current Subjective Patient asleep in recliner upon PT entry. Agrees to PT. Pain Section J - Health Conditions 1. Rarely or not at all 2. Occasionally 3. Frequently 4. Almost constantly 8. Unable to answer Pain Effect on Sleep: 1 Pain Interference with Therapy: 1 Pain Interference w/Day-to-Day: 1 Mental Status Patient Orientation: Normal For Age Attachments: Oxygen Transfers SCALE: Activities may be completed with or without assistive devices. 9-Lincvqzswv-cyeztsc completes the activity by him/herself with no assistance from a helper. 5-Set-up or Clean-up Assistance-helper sets up or cleans up; patient completes activity. [place] assists only prior to or following the activity. 4-Supervision or Touching Assistance-helper provides verbal cues and/or touching/steadying and/or contact guard assistance as patient completes activity. Assistance may be provided throughout the activity or intermittently. 3-Partial/Moderate Assistance-helper does LESS THAN HALF the effort. [place] lifts, holds or supports trunk or limbs, but provides less than half the effort. 2-Substantial/Maximal Assistance-helper does MORE THAN HALF the effort. [place] lifts or holds trunk or limbs and provides more than half the effort. 6-Vbvmyurkr-zorgdt does ALL the effort. Patient does none of the effort to complete the activity. Or, the assistance of 2 or more helpers is required for the patient to complete the activity. If activity was not attempted, code reason: 7-Patient Refused. 9-Not Applicable-not attempted and the patient did not perform the activity b efore the current illness, exacerbation or injury. 10-Not Attempted due to Environmental Limitations-(lack of equipment, weather restraints, etc.). 88-Not Attempted due to Medical Conditions or Safety Concerns. Sit to Stand (QC): 4 Weight Bearing Right Lower Extremity: Right Full Weight Bearing Left Lower Extremity: Left Full Weight Bearing Gait Training Distance: 250' Walk 10 feet (QC): 4 Walk 50 ft with 2 Turns(QC): 4 Walk 150 ft (QC): 4 Gait Assistive Device: FWW very slow, steady gait sequence Assessment Patient remains up in recliner after session with breakfast in situ. PT to continue to increase activity as tolerated by patient. PT Prison Goals Prison Goals PT Advanced Practice Psychiatric Nurse Goals Time Frame: Apr 08, 2022 Roll Left & Right (QC): 6 Sit to Lying (QC): 6 Lying-Sitting on Side/Bed(QC): 6 Sit to Stand (QC): 6 Chair/Uut-lt-Lgtrh Xfer(QC): 6 Toilet Transfer (QC): 6 Does the Patient Walk: Yes Walk 10 feet (QC): 6 Walk 50ft with 2 Turns (QC): 6 Walk 150 ft (QC): 6 1 Step (curb) (QC): 4 4 Steps (QC): 4 PT Plan Treatment/Plan Treatment Plan: Continue Plan of Care Treatment Plan: Bed Mobility, Education, Functional Activity Patricia, Functional Strength, Group Therapy, Gait, Safety, Therapeutic Exercise, Transfers Treatment Duration: Apr 12, 2022 Frequency: 6 times per week Estimated Hrs Per Day: .25 hour per day Patient and/or Family Agrees t: Yes Time Time In: 842 Time Out: 852 DATE: Mar 31, 2022 Total Billed Treatment Time: 10 Total Billed Treatment 1 visit FA 10 min ISAMAR JADE PT Mar 31, 2022 09:59
[2022-03-31] MEDS ORDERED: RT-IPRATROPIUM (ATROVENT) 0.5MG/2.5ML AMP IH PRN (11:00)
[2022-03-31] MEDS ORDERED: RT-ALBUTEROL SULF 2.5 MG/3 ML PRE-MIX VIAL INH PRN (11:00)
[2022-03-31 12:00] VITALS: BP 138/79
[2022-03-31] MEDS: RT-ALBUTEROL SULF 2.5 MG/3 ML PRE-MIX VIAL INH SCH ×3 (15:01→22:07)
[2022-03-31] MEDS: RT-IPRATROPIUM (ATROVENT) 0.5MG/2.5ML AMP IH SCH ×3 (15:02→22:07)
[2022-03-31 15:28] VITALS: BP 141/67
--- NOTE | 2022-03-31 17:05 | Progress Note - Cardiology ---
Cardiology SOAP Progress Note Subjective: Shortness of breath is better No cp or palp or syncope No n/v/d Gen weakness and malaise present No focal weakness Objective: I&O/Vital Signs 03/31/22 03/31/22 03/31/22 03/31/22 07:06 07:19 07:47 09:00 Temp 36.6 Pulse 100 94 Resp 16 B/P (MAP) 146/77 (100) Pulse Ox 91 90 O2 Delivery Nasal Cannula Nasal Cannula Nasal Cannula O2 Flow Rate 3.00 3.00 1.50 03/31/22 03/31/22 03/31/22 03/31/22 10:46 12:00 12:36 15:02 Temp 36.0 Pulse 95 114 Resp 18 B/P (MAP) 138/79 (98) Pulse Ox 97 96 94 O2 Delivery Nasal Cannula Nasal Cannula Nasal Cannula O2 Flow Rate 3.00 3.00 3.00 03/31/22 15:28 Temp 36.3 Pulse 89 Resp 20 B/P (MAP) 141/67 (91) Pulse Ox 98 O2 Delivery Nasal Cannula O2 Flow Rate 3.00 03/31/22 00:00 Intake Total 1950 ml Balance 1950 ml Weight (Pounds): 212 Weight (Ounces): 7.0 Weight (Calculated Kilograms): 96.840884 Constitutional: well-developed, well-nourished, other (drowsy, diminished responsiveness) Respiratory: No accessory muscle use; chest expansion is symmetric, other (basal coarse and fine crackles) Cardiovascular: irregularly irregular, S1 and S2, systolic murmur (soft LIZA at card base) Gastrointestional: No tender; soft; No guarding, No rebound; audible bowel sounds Extremities: No clubbing, No cyanosis, No significant edema Neurologic/Psychiatric: oriented x 3, other (moves all limbs equally) Skin: No rash on exposed areas, No ulcerations on exposed areas Results/Procedures: Labs Laboratory Tests 03/30/22 19:22: Glucometer 306H 03/31/22 05:29: Glucometer 188H 03/31/22 11:27: Glucometer 295H 03/31/22 15:33: Glucometer 274H A/P: Assessment: Ac resp failure, multifactorial: ac on ch CHF & cor pulmonale, marked anemia, probable obesity-hypovent/GER - Drowsiness/confusion on 03/26/22, resolved with breathing treatments Acute on chronic CHF and cor pulmonale - 2D Echo done 01/27/[address] Barker showing mild diffuse hypokinesia with EF 45%. Dilated right and left atrium, moderate MR, severe TR. PA 75-80mmHg. Severe pulmonary hypertension with dilated right heart chambers. Significant deterioration compared to the previous echo from 2020. Marked anemia at time of admission requiring transfusion - improved H/H stable - GI bleed suspected, oral anticoag withheld, treated blood transfusion on 03/22/22 - Endoscopy of 03-25-[address] Manning showed Reflux esophagitis [place] grade B, moderate size hiatal hernia approximately 3 cm in size. Moderate gastritis. No active bleeding. Chronic between stage II to III external and internal hemorrhoids, moderate sigmoid diverticulosis. Again, no active bleed. Small hyperplastic polyp of the ascending colon. Chronic permanent atrial fibrillation - twelve-lead EKG was done showing atrial fibrillation with right bundle branch block. - [id number] score 4, yearly risk of stroke without oral anticoagulation is 4%. - Eliquis 5mg BID has been resumed as of 03-28-22 Pulmonary HTN - likely d/t obesity hypoventilation syndrome/GER Generalized weakness - continue PT/OT Hypertension - controlled Hyperlipidemia - maintained on statin CKD 3a - monitored and managed [place] [facility] [place] management per Medical services Peripheral neuropathy Chronic pain syndrome Plan: * Heart rate was rapid this am. Increase diltiazem * OAC has been resumed. Dr Figueroa managing anemia * Advise sleep studies as outpt * Monitor labs * Ok to discharge from cardiac standpoint with out f/u HARITHA ESPARZA MD FACP FACC CCDS Mar 31, 2022 17:05
[2022-03-31 19:28] VITALS: BP 135/67
[2022-03-31] MEDS: AtorvaSTATin TABLET 10 MG TABLET PO SCH (20:30)
[2022-03-31 23:31] VITALS: BP 121/64
[2022-04-01] MEDS: RT-IPRATROPIUM (ATROVENT) 0.5MG/2.5ML AMP IH SCH ×3 (02:53→10:10)
[2022-04-01] MEDS: RT-ALBUTEROL SULF 2.5 MG/3 ML PRE-MIX VIAL INH SCH ×3 (02:53→10:10)
[2022-04-01 04:01] VITALS: BP 120/72
[2022-04-01] MEDS: inSUlin ASPART (NovoLOG) 1 UNIT/0.01 ML (CHARGE PER UNIT) SC SCH (06:19)
[2022-04-01] MEDS: CATHETER FLUSH 10 ML SYR IVP SCH (06:20)
[2022-04-01] MEDS: KCL 20 MEQ TAB (K-DUR) PO SCH (06:27)
[2022-04-01 07:16] VITALS: BP 136/60
--- NOTE | 2022-04-01 07:25 | Progress Note ---
Subjective Subjective Date Seen by Provider: Apr 01, 2022 Time Seen by Provider: 07:22 Patient is feeling much better today. She is sitting up in her bed and eating breakfast. She is aware that she is leaving today for [facility]. Review of Systems General: No Chills; Fatigue Pulmonary: No Dyspnea, No Cough Cardiovascular: No: Chest Pain, Palpitations Gastrointestinal: No: Nausea, Vomiting, Abdominal Pain Neurological: Weakness Objective Exam Vital Signs Vital Signs Date Time Temp Pulse Resp B/P (MAP) Pulse Ox O2 Delivery O2 Flow Rate FiO2 04/01/22 06:56 93 Nasal Cannula 3.00 04/01/22 04:01 37.3 92 16 120/72 (88) 96 Nasal Cannula 3.00 04/01/22 02:53 97 Nasal Cannula 3.00 03/31/22 23:31 37.6 97 16 121/64 (83) 95 Nasal Cannula 3.00 03/31/22 22:07 97 Nasal Cannula 3.00 03/31/22 20:37 Nasal Cannula 3.00 03/31/22 19:28 36.9 94 18 135/67 (89) 95 Nasal Cannula 3.00 03/31/22 18:32 97 Nasal Cannula 3.00 03/31/22 15:28 36.3 89 20 141/67 (91) 98 Nasal Cannula 3.00 03/31/22 15:02 94 Nasal Cannula 3.00 03/31/22 12:36 114 03/31/22 12:00 36.0 95 18 138/79 (98) 96 Nasal Cannula 3.00 03/31/22 10:46 97 Nasal Cannula 3.00 03/31/22 09:00 Nasal Cannula 1.50 03/31/22 07:47 36.6 94 16 146/77 (100) 90 Nasal Cannula 3.00 I & O 04/01/22 06:59 Intake Total 2160 ml Balance 2160 ml General Appearance: No Apparent Distress, Obese HEENT: PERRL/EOMI, Moist Mucous Membranes Respiratory: Lungs Clear, No Respiratory Distress Cardiovascular: Regular Rate, Rhythm, No Murmur Gastrointestinal: Normal Bowel Sounds, Soft Rectal: Deferred Back: No CVA Tenderness, No Vertebral Tenderness Extremity: Normal Inspection, Pedal Edema, Other Neurologic/Psychiatric: Alert, Normal Mood/Affect Skin: Normal Color, Warm/Dry Lymphatic: No Adenopathy Results Lab Laboratory Tests 03/31/22 11:27: Glucometer 295H 03/31/22 15:33: Glucometer 274H 03/31/22 20:12: Glucometer 273H 04/01/22 05:30: Glucometer 197H Assessment/Plan Assessment/Plan Admission Dx 1. Acute Respiratory Distress 2. 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 Acute on Chronic Anemia 4. Atrial Fibrillation 5. DMII 6. GER 7. Debility 8. Neuropathy Assessment and Plan Acute respiratory distress COPD exacerbation CHF - combined systolic and diastolic Pulmonary hypertension GER Afib Rectal bleeding from hemorrhoids Chronic anticoagulant use JASEN improved, COPD stable, CHF improved as well. Chronic Pulmonary HTN - supportive care, Lasix as needed. GER - pt refuses CPAP Afib - chronic and on anticoagulation. [facility] will be by to pepper picker patient around 11:30AM today. They are able to accept the patient at this time. Family is agreeable to this plan. Admission Dx 1. Acute Respiratory Distress 2. 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 Acute on Chronic Anemia 4. Atrial Fibrillation 5. DMII 6. GER 7. Debility 8. Neuropathy Clinical Quality Measures Admission Status Admission Dx 1. Acute Respiratory Distress 2. 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 Acute on Chronic Anemia 4. Atrial Fibrillation 5. DMII 6. GER 7. Debility 8. Neuropathy ROXANNE IBARRA Apr 01, 2022 07:24
[2022-04-01] MEDS: IRON SUCROSE 200 MG/10 ML (VENOFER) VIAL IV SCH (09:23)
[2022-04-01] MEDS: FUROSEMIDE 20 MG (LASIX) TAB PO SCH (09:23)
[2022-04-01] MEDS ORDERED: DILT180C85 PO (09:23)
[2022-04-01] MEDS ORDERED: APIX5TAB PO (09:23)
[2022-04-01] MEDS: APIXABAN 5 MG (ELIQUIS) TABLET PO SCH (09:23)
[2022-04-01] MEDS ORDERED: IPRA0.2S51 IH (09:23)
[2022-04-01] MEDS ORDERED: ACHD5005 PO (09:23)
[2022-04-01] MEDS: DOCUSATE SODIUM 100 MG (COLACE) CAP PO SCH (09:23)
[2022-04-01] MEDS: GABAPENTIN 100 MG (NEURONTIN) CAP PO SCH (09:23)
--- NOTE | 2022-04-01 09:28 | Discharge Inst-Skilled Nursing ---
Discharge Inst-Skilled NF Reconcile Patient Problems Problems Reviewed?: Yes Patient Instructions Patient Problems: Acute respiratory distress COPD exacerbation CHF - combined systolic and diastolic Pulmonary hypertension GER Afib Rectal bleeding from hemorrhoids Chronic anticoagulant use Consult/Follow Up/Orders Follow Up Appt.: 1 week Skilled NF Admit to: [facility] Certification (SNF) I certify that SNF services are required to be given on an inpatient basis becau se of the above named patient's need for snf care on a continuing basis for the conditions(s) for which he/she was receiving inpatient hospital services prior to his/her transfer to the SNF. [facility] Facility Order: Nursing Services, Laboratory Technical Specialist-Evaluate & Treat, Physical Therapy-Evaluate & Treat Oxygen Delivery Method: Nasal Cannula Oxygen Flow Rate L/min (Range): 3 Discharge Diet: ADA Diet Daily Activity as Tolerated: Yes Resuscitation Status: Full Code New & Resume Previous Orders New & Resume Previous Orders fsbs ac hs cbc and cmp in one week Deangelo Figueroa Apr 01, 2022 09:24 DEANGELO FIGUEROA MD Apr 01, 2022 09:28
--- NOTE | 2022-04-01 10:03 | Progress Note - Cardiology ---
Cardiology SOAP Progress Note Subjective: Sitting up in recliner No c/o CP, SOB, palpitations, syncope or near syncope Objective: I&O/Vital Signs 03/31/22 03/31/22 04/01/22 04/01/22 22:07 23:31 02:53 04:01 Temp 37.6 37.3 Pulse 97 92 Resp 16 16 B/P (MAP) 121/64 (83) 120/72 (88) Pulse Ox 97 95 97 96 O2 Delivery Nasal Cannula Nasal Cannula Nasal Cannula Nasal Cannula O2 Flow Rate 3.00 3.00 3.00 3.00 04/01/22 04/01/22 06:56 07:16 Temp 36.8 Pulse 88 Resp 18 B/P (MAP) 136/60 (85) Pulse Ox 93 94 O2 Delivery Nasal Cannula Nasal Cannula O2 Flow Rate 3.00 3.00 03/31/22 23:59 Intake Total 1960 ml Balance 1960 ml Weight (Pounds): 212 Weight (Ounces): 7.0 Weight (Calculated Kilograms): 96.166327 Constitutional: well-developed, well-nourished, other (drowsy, diminished responsiveness) Respiratory: No accessory muscle use; chest expansion is symmetric, other (basal coarse and fine crackles) Cardiovascular: irregularly irregular, S1 and S2, systolic murmur (soft LIZA at card base) Gastrointestional: No tender; soft; No guarding, No rebound; audible bowel sounds Extremities: No clubbing, No cyanosis, No significant edema Neurologic/Psychiatric: oriented x 3, other (moves all limbs equally) Skin: No rash on exposed areas, No ulcerations on exposed areas Results/Procedures: Labs Laboratory Tests 03/31/22 11:27: Glucometer 295H 03/31/22 15:33: Glucometer 274H 03/31/22 20:12: Glucometer 273H 04/01/22 05:30: Glucometer 197H A/P: Assessment: Ac resp failure, multifactorial: ac on ch CHF & cor pulmonale, marked anemia, probable obesity-hypovent/GER - Drowsiness/confusion on 03/26/22, resolved with breathing treatments Acute on chronic CHF and cor pulmonale - 2D Echo done 01/27/[address] Barker showing mild diffuse hypokinesia with EF 45%. Dilated right and left atrium, moderate MR, severe TR. PA 75-80mmHg. Severe pulmonary hypertension with dilated right heart chambers. Significant deterioration compared to the previous echo from 2020. Marked anemia at time of admission requiring transfusion - improved H/H stable - GI bleed suspected, oral anticoag withheld, treated blood transfusion on 03/22/22 - Endoscopy of 03-25-[address] Manning showed Reflux esophagitis [place] grade B, moderate size hiatal hernia approximately 3 cm in size. Moderate gastritis. No active bleeding. Chronic between stage II to III external and internal hemorrhoids, moderate sigmoid diverticulosis. Again, no active bleed. Small hyperplastic polyp of the ascending colon. Chronic permanent atrial fibrillation - twelve-lead EKG was done showing atrial fibrillation with right bundle branch block. - [id number] score 4, yearly risk of stroke without oral anticoagulation is 4%. - Eliquis 5mg BID has been resumed as of 03-28-22 Pulmonary HTN - likely d/t obesity hypoventilation syndrome/GER Generalized weakness - continue PT/OT Hypertension - controlled Hyperlipidemia - maintained on statin CKD 3a - monitored and managed by the [facility] [place] DM II - management per Medical services Peripheral neuropathy Chronic pain syndrome Plan: * HR controlled with addition of Cardizem CD * OAC has been resumed. Dr Figueroa managing anemia * Advise sleep studies as outpt * Monitor labs * Ok to discharge from cardiac standpoint with out f/u SB REDDY Apr 01, 2022 10:02
[2022-04-01 11:50] VITALS: BP 136/60
== END 2022-04-01 11:50 | DRG 291 ==
LOC: EDUNIT# 19:42 → ER 19:44 → ICU 21:05 → CSD 03-23 14:11 → 4TH 03-28 06:40
PROVIDERS: ADMIT Family Medicine; ATTEND Family Medicine
PROC: 0DBK8ZX Excision of Ascending Colon, Via Natural or Artificial Opening Endoscopic, Diagnostic (ICD-10-PCS; 2022-03-25)
PROC: 0DB48ZX Excision of Esophagogastric Junction, Via Natural or Artificial Opening Endoscopic, Diagnostic (ICD-10-PCS; principal; 2022-03-25 13:00)
PROC: 0DB78ZX Excision of Stomach, Pylorus, Via Natural or Artificial Opening Endoscopic, Diagnostic (ICD-10-PCS; 2022-03-25 13:00)
DX: I13.0 Hypertensive heart and chronic kidney disease with heart failure and stage 1 through stage 4 chronic kidney disease, or unspecified chronic kidney disease (principal); I50.43 Acute on chronic combined systolic (congestive) and diastolic (congestive) heart failure; J96.01 Acute respiratory failure with hypoxia; J44.1 Chronic obstructive pulmonary disease with (acute) exacerbation; I48.21 Permanent atrial fibrillation; E66.2 Morbid (severe) obesity with alveolar hypoventilation; E11.22 Type 2 diabetes mellitus with diabetic chronic kidney disease; N18.31 Chronic kidney disease, stage 3a; Z66 Do not resuscitate; Z20.822 Contact with and (suspected) exposure to COVID-19; E11.42 Type 2 diabetes mellitus with diabetic polyneuropathy; I27.81 Cor pulmonale (chronic); G89.4 Chronic pain syndrome; I08.1 Rheumatic disorders of both mitral and tricuspid valves; K21.00 Gastro-esophageal reflux disease with esophagitis, without bleeding; K29.70 Gastritis, unspecified, without bleeding; K64.2 Third degree hemorrhoids; D50.0 Iron deficiency anemia secondary to blood loss (chronic); K57.30 Diverticulosis of large intestine without perforation or abscess without bleeding; K63.5 Polyp of colon; I45.10 Unspecified right bundle-branch block; I25.10 Atherosclerotic heart disease of native coronary artery without angina pectoris; E78.00 Pure hypercholesterolemia, unspecified; K21.9 Gastro-esophageal reflux disease without esophagitis; F32.A Depression, unspecified; F41.9 Anxiety disorder, unspecified; M19.91 Primary osteoarthritis, unspecified site; Z68.35 Body mass index [BMI] 35.0-35.9, adult; Z79.01 Long term (current) use of anticoagulants; Z99.81 Dependence on supplemental oxygen; Z79.4 Long term (current) use of insulin; Z87.891 Personal history of nicotine dependence; Z79.899 Other long term (current) drug therapy
CPT/HCPCS: 36415; 71045; 80048; 80053; 82550; 82553; 82607; 82728; 82805; 82947; 83540; 83550; 83735; 83874; 83880; 84425; 84443; 84484; 85014; 85018; 85025; 85027; 85610; 85652; 85730; 86141; 86850; 86900; 86901; 86920; 87636; 93005; 93041; 94640; 94660; 94760; 96374

== ENCOUNTER 2022-06-27 09:20 | Outpatient (CLI) | payer MEDICARE, MEDICAID ==
[2022-06-27] VITALS (13 sets, daily range): BP systolic 119–144; BP diastolic 66–86
[~2022-06-27] VITALS: Ht 172 cm; Wt 108.5 kg
[~2022-06-27 09:20] MED LIST changes: +CRV25T PO; +DILT180C85 PO; +INSU100I14 SC; +INSU100I14 SQ; +IPRA0.2S51 IH; +POTA-177 PO
[2022-06-27] MEDS ORDERED: FUROSEMIDE 40 MG/4 ML INJ (LASIX) IVP ONE ×2 (09:45→14:00)
[2022-06-27] MEDS ORDERED: NS IV 500 ML 500 ML IV SCH ×2 (09:45→18:30)
[2022-06-27] MEDS ORDERED: ACETAMINOPHEN 500 MG TAB (TYLENOL) PO ONE (10:15)
[2022-06-27] MEDS ORDERED: diphenhydrAMINE 50 MG/ML INJ (BENADRYL) IVP ONE (10:15)
[2022-06-27] MEDS ORDERED: ROPI0.253 PO (14:54)
[2022-06-27] MEDS ORDERED: APIX5TAB PO (14:54)
[2022-06-27] MEDS ORDERED: OMEP40CA6 PO (14:54)
[2022-06-27] MEDS ORDERED: FUROSEMIDE 40 MG/4 ML INJ (LASIX) ONE (16:44)
[2022-06-27 17:46] LABS: HEMOGLOBIN 7.4 g/dL (11.5-16.0)
== END 2022-06-27 21:55 | disposition home or self-care (01) ==
LOC: 4THo 09:20 → 4TH 09:30 → 4THo 21:55
PROVIDERS: ATTEND Family Medicine
DX: D64.9 Anemia, unspecified (principal)
CPT/HCPCS: 36415; 36430; 82947; 85014; 85018; 86850; 86900; 86901; 86920

== ENCOUNTER 2022-08-11 13:10 | Emergency (ER) | payer MEDICARE, MEDICAID ==
[~2022-08-11] VITALS: Ht 172.7 cm; Wt 108.5 kg
[~2022-08-11 13:10] MED LIST changes: +OMEP40CA6 PO; +ROPI0.253 PO
--- NOTE | 2022-08-11 14:56 | Diagnostic Imaging Report ---
CLINICAL INDICATION: Patient left-sided hip pain x2 months with extremely painful increased since morning around 200 hours. Patient with nausea and denies diarrhea. Patient has occasional constipation. EXAM: X-ray of the abdomen with multiple supine views. COMPARISON: CT scan of the abdomen and pelvis without contrast dated 01/05/2021. FINDINGS: There is a nonobstructed bowel gas pattern. There is no evidence of abdominal free air. There is a small to moderate amount stool involving the right colon, transverse colon, possibly sigmoid colon region. Again seen phleboliths overlying the pelvis. Stable chronic calcification seen superiorly medial to the iliac crests and adjacent left side of the L2-L3 endplate region. There are hypertrophic spurs involving the lumbar spine. Bilateral hip arthroplasties are seen. IMPRESSION: There is no radiographic evidence for acute abdominal/ pelvic process or urinary tract stones. There is a small to moderate amount of stool, described above. Dictated by: Dictated on workstation # [id number]
--- NOTE | 2022-08-11 14:57 | Diagnostic Imaging Report ---
INDICATION: Left-sided hip pain, nausea and diarrhea. AP pelvis and two-view left hip performed. There is total hip arthroplasties bilaterally both appeared intact. No dislocation of the femoral head prostheses. Acetabular orientation normal. There is some underlying bony demineralization but no appreciable acute or subacute fracture. IMPRESSION: Good appearance of bilateral hip replacements. No acute finding apparent. Dictated by: Dictated on workstation # [id number]
--- NOTE | 2022-08-11 15:18 | ED Abdominal Pain ---
General Chief Complaint: Hip/Pelvic Problems Stated Complaint: LT SIDE PAIN Nursing Triage Note: LEFT SIDED HIP PAIN X 2 MONTHS WITH EXTREMLY PAINFUL INCREASE THIS AM AROUND 1000, NAUSEA, DENIES DIARRHEA, NORMAL BM OCC CONSTIPATION. LBM T-1 Source of Information: Patient Exam Limitations: No Limitations History of Present Illness Date Seen by Provider: Aug 11, 2022 Time Seen by Provider: 14:27 Initial Comments This 77-year-old woman presents to the emergency room accompanied by her daughter with primary complaint of left hip pain for the past 2 months which has caused a functional burden. It is affecting her general ambulation and daily activities. She states 2 months ago she felt a sudden pop in her left hip and pain seemed to start after that. She has remained ambulatory. Her left hip is prosthetic. She takes hydrocodone 10 mg, 1 to 2 tablets every 6 hours as needed. She continues to have pain despite taking hydrocodone. On examination, her symptoms seem to be more focused around abdominal pain rather than hip pain. She does not seem to have significant pain with rotation or flexion of the hip but more pain with palpation of the lower left abdomen. Dr. Figueroa is her primary care provider. Allergies and Home Medications Allergies Coded Allergies: No Known Drug Allergies (Unverified , 08/11/22) Patient Home Medication List Home Medication List Reviewed: Yes Apixaban (Eliquis) 5 Mg Tablet, 5 MG PO BID, (Reported) Entered as Reported by: SOFIA FRANCISCO on 06/27/22 1454 Cephalexin (Cephalexin) 500 Mg Tablet, 500 MG PO TID Prescribed by: JEREMIAH ALEX on 08/11/22 1835 Escitalopram Oxalate (Escitalopram Oxalate) 20 Mg Tablet, 20 MG PO HS, (Reported) Entered as Reported by: SULEIMAN SANCHEZ on 12/11/17 1311 Famotidine (Pepcid) 20 Mg Tablet, 20 MG PO BID Prescribed by: JEREMIAH ALEX on 08/11/22 1836 Furosemide (Furosemide) 20 Mg Tablet, 40 MG PO 0800,1600, (Reported) Entered as Reported by: ANDRIA ROMERO on 07/06/18 1148 Gabapentin (Gabapentin) 100 Mg Capsule, 100 MG PO TID, (Reported) Entered as Reported by: SOFIA FRANCISCO on 03/24/22 1534 Hydrocodone/Acetaminophen (Hydrocodone-Acetamin 10-325 mg) 10 Mg-325 Mg Tablet, 1-2 EACH PO Q6H PRN for PAIN-MODERATE (5-7), (Reported) Entered as Reported by: SOFIA FRANCISCO on 03/24/22 153 Hydrocodone/Acetaminophen (Hydrocodone-Acetamin 10-325 mg) 10 Mg-325 Mg Tablet, 1-1.5 EACH PO Q6H PRN for PAIN-MODERATE (5-7) Prescribed by: JEREMIAH ALEX on 08/11/22 1837 Insulin Aspart (Novolog Flexpen) 100 Unit/Ml (3 Ml) Solution, 4 UNITS SC AC, (Reported) Entered as Reported by: SOFIA FRANCISCO on 03/24/22 153 Insulin Aspart (Novolog Flexpen) 100 Unit/Ml (3 Ml) Solution, UNITS SQ SLIDING/SCALE, (Reported) Entered as Reported by: SOFIA FRANCISCO on 03/24/22 153 Insulin Degludec (Tresiba Flextouch U-200) 200 Unit/Ml (3 Ml) Insuln.pen, 55 UNITS SC HS, (Reported) Entered as Reported by: SOFIA FRANCISCO on 03/24/22 153 Omeprazole (Omeprazole) 40 Mg Capsule.dr, 40 MG PO DAILY, (Reported) Entered as Reported by: SOFIA FRANCISCO on 06/27/22 145 Potassium Chloride (Potassium Chloride) 10 Meq Tab.er.prt, 10 MEQ PO BID, (Repo rted) Entered as Reported by: SOFIA FRANCISCO on 03/24/22 153 Ropinirole HCl (Ropinirole HCl) 0.25 Mg Tablet, 0.25 MG PO HS, (Reported) Entered as Reported by: SOFIA FRANCISCO on 06/27/22 145 Simvastatin (Simvastatin) 20 Mg Tablet, 20 MG PO HS, (Reported) Entered as Reported by: EDWIN ANGELA on 09/11/162022 Review of Systems Review of Systems Constitutional: no symptoms reported EENTM: No Symptoms Reported Respiratory: No Symptoms Reported Cardiovascular: No Symptoms Reported Gastrointestinal: See HPI Genitourinary: No Symptoms Reported Musculoskeletal: see HPI Skin: no symptoms reported Psychiatric/Neurological: No Symptoms Reported Endocrine: No Symptoms Reported Hematologic/Lymphatic: No Symptoms Reported Past Eoxgmey-Kdfxjl-Benizu Hx Patient Social History Tobacco Use?: No Smoking Status: Former Smoker Use of E-Cig and/or Vaping dev: No Substance use?: No Alcohol Use?: No Immunizations Up To Date Tetanus Booster (TDap): Unknown Influenza Vaccine Up-to-Date: Yes; Up-to-Date First/Initial COVID19 Vaccinat: AUGUST 2020 Second COVID19 Vaccination Sacha: SEPTEMBER 2020 Third COVID19 Vaccination Date: AUGUST 2020 Seasonal Allergies Seasonal Allergies: No Past Medical History Surgery/Hospitalization HX: IDDM, CHF BILAT HIPS, TOTAL HYSTER Surgeries: Yes (bilat hip replacement;wrist surgery;port/REMOVAL;brain aneurysm removed;CAT) Eye Surgery, Hysterectomy, Joint Replacement (bialteral hips), Neurological, Orthopedic Respiratory: Yes (O2 3 lpm NC continuous) COPD Currently Using CPAP: No Currently Using BIPAP: No Cardiac: Yes (RBBB) Atrial Fibrillation, Chronic Edema/Swelling, Coronary Artery Disease, High Cholesterol, Hypertension Neurological: Yes (CEREBRAL ANEURYSM WITH SURGERY) Neuropathy, Stroke, TIA, Vertigo 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 Disorders: No Female 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 Disorders: Denies 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 --NO DIALYSIS) Renal Failure, UTI-Chronic Gastrointestinal: Yes (LOWER GI BLEED WHEN ON ELIQUIS) Gastroesophageal Reflux, Gastrointestinal Bleed, Chronic Constipation, Polyps Musculoskeletal: Yes Degenerate Disk Disease, Arthritis Endocrine: Yes (OBESITY) Diabetes, Insulin dep HEENT: Yes (GLASSES, DENTURES) Cataract Loss of Vision: Denies Hearing Impairment: Denies Cancer: No Psychosocial: Yes Anxiety, Depression Integumentary: No Blood Disorders: Yes (ANEMIA) Adverse Reaction/Blood Tranf: No (N/A) Family Medical History Myocardial infarction 19 MOTHER Heart Disease, Hypertension SOCIAL HISTORY: -SMOKED IN PAST, QUIT 1984 -ETOH--OCCASIONAL USE IN PAST, NONE FOR YEARS -DRUGS--DENIES USE PAST SURGICAL HISTORY: -BILATERAL CATARACTS 01/2019 -PORT PLACED/LATER REMOVED -BILATERAL KNEE REPLACEMENTS -RIGHT KNEE SCOPE/TORN MENISCUS 11/16/[address] BAILEY. -BILATERAL WRIST SURGERY -SURGERY FOR BRAIN ANEURYSM -COLONOSCOPIES/POLYPECTOMIES -EGD'S -APPENDECTOMY -HYSTERECTOMY/BILATERAL SALPINGO-OOPHORECTOMY -BLADDER SURGERY -CARDIAC CATH-NO INTERVENTION Physical Exam Vital Signs Vital Signs - First Documented 08/11/22 13:15 Temp 36.9 Pulse 96 Resp 18 B/P (MAP) 139/72 (94) Pulse Ox 97 Capillary Refill : Less Than 3 Seconds Height/Weight/BMI Height: 5'8.00" Weight: 212lbs. 7.0oz. 96.726584no; 36.00 BMI Method:Stated General Appearance: WD/WN, mild distress, obese HEENT: normal ENT inspection Neck: normal inspection Respiratory: lungs clear, normal breath sounds, no respiratory distress, no accessory muscle use Cardiovascular: regular rate, rhythm, no edema Gastrointestinal: normal bowel sounds, soft; No distended; tenderness (epigastric and LLQ) Extremities: normal inspection, no pedal edema, other (no significant TTP or pain over the left hip joint and lateral hip. 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 as tested, no motor/sensory deficits, alert, normal mood/affect, oriented x 3 Skin: normal color, warm/dry Progress/Results/Core Measures Results/Orders Lab Results Laboratory Tests Test 08/11/22 15:20 08/11/22 15:40 Range/Units White Blood Count 9.1 4.3-11.0 10^3/uL Red Blood Count 3.79 L 3.80-5.11 10^6/uL Hemoglobin 9.0 L 11.5-16.0 g/dL Hematocrit 31 L 35-52 % Mean Corpuscular Volume 82 80-99 fL Mean Corpuscular Hemoglobin 24 L 25-34 pg Mean Corpuscular Hemoglobin Concent 29 L 32-36 g/dL Red Cell Distribution Width 17.6 H 10.0-14.5 % Platelet Count 305 130-400 10^3/uL Mean Platelet Volume 10.0 9.0-12.2 fL Immature Granulocyte % (Auto) 0 % Neutrophils (%) (Auto) 78 H 42-75 % Lymphocytes (%) (Auto) 13 12-44 % Monocytes (%) (Auto) 7 0-12 % Eosinophils (%) (Auto) 1 0-10 % Basophils (%) (Auto) 0 0-10 % Neutrophils # (Auto) 7.1 1.8-7.8 10^3/uL Lymphocytes # (Auto) 1.2 1.0-4.0 10^3/uL Monocytes # (Auto) 0.6 0.0-1.0 10^3/uL Eosinophils # (Auto) 0.1 0.0-0.3 10^3/uL Basophils # (Auto) 0.0 0.0-0.1 10^3/uL Immature Granulocyte # (Auto) 0.0 0.0-0.1 10^3/uL Sodium Level 140 135-145 MMOL/L Potassium Level 3.7 3.6-5.0 MMOL/L Chloride Level 99 98-107 MMOL/L Carbon Dioxide Level 34 H 21-32 MMOL/L Anion Gap 7 5-14 MMOL/L Blood Urea Nitrogen 11 7-18 MG/DL Creatinine 0.82 0.60-1.30 MG/DL Estimat Glomerular Filtration Rate 70 BUN/Creatinine Ratio 13 Glucose Level 117 H 70-105 MG/DL Calcium Level 9.1 8.5-10.1 MG/DL Corrected Calcium 9.4 8.5-10.1 MG/DL Total Bilirubin 0.3 0.1-1.0 MG/DL Aspartate Amino Transf (AST/SGOT) 12 5-34 U/L Alanine Aminotransferase (ALT/SGPT) 9 0-55 U/L Alkaline Phosphatase 127 40-136 U/L C-Reactive Protein High Sensitivity 0.48 0.00-0.50 MG/DL Total Protein 6.9 6.4-8.2 GM/DL Albumin 3.6 3.2-4.5 GM/DL Lipase 35 8-78 U/L Urine Color YELLOW Urine Clarity CLEAR Urine pH 7.5 5-9 Urine Specific Riggins 1.010 L 1.016-1.022 Urine Protein NEGATIVE NEGATIVE Urine Glucose (UA) NEGATIVE NEGATIVE Urine Ketones NEGATIVE NEGATIVE Urine Nitrite POSITIVE H NEGATIVE Urine Bilirubin NEGATIVE NEGATIVE Urine Urobilinogen 2.0 < = 1.0 MG/DL Urine Leukocyte Esterase TRACE H NEGATIVE Urine RBC (Auto) NEGATIVE NEGATIVE Urine RBC NONE /HPF Urine WBC 0-2 /HPF Urine Squamous Epithelial Cells 0-2 /HPF Urine Crystals NONE /LPF Urine Bacteria LARGE H /HPF Urine Casts NONE /LPF Urine Mucus SMALL H /LPF Urine Culture Indicated YES Micro Results Microbiology 08/11/22 Urine Culture - Final, Complete Escherichia coli My Orders Orders - JEREMIAH CUENCA MD Abdomen/Kub 1view (08/11/22 14:27) Pelvis With Left Hip 2-3 Views (08/11/22 14:27) Fentanyl Inj (Sublimaze Injection) (08/11/22 15:30) Ed Iv/Invasive Line Start (08/11/22 15:16) Cbc With Automated Diff (08/11/22 15:16) Comprehensive Metabolic Panel (08/11/22 15:16) Hs C Reactive Protein (08/11/22 15:16) Lipase (08/11/22 15:16) Ua Culture If Indicated (08/11/22 15:16) Urine Culture (08/11/22 15:40) Ct Abdomen/Pelvis W (08/11/22 16:52) Iohexol Injection (Omnipaque 350 Mg/Ml 1 (08/11/22 17:00) Ns (Ivpb) (Sodium Chloride 0.9% Ivpb Bag (08/11/22 17:00) Ceftriaxone Pre-Mix (Rocephin Pre-Mix) (08/11/22 18:10) Hydrocodone/Apap 5/325 Tablet (Lortab 5 (08/11/22 18:30) Medications Given in ED Vital Signs/I&O 08/11/22 08/11/22 13:15 18:49 Temp 36.9 Pulse 96 86 Resp 18 18 B/P (MAP) 139/72 (94) 129/91 Pulse Ox 97 97 Blood Pressure Mean: 94 Progress Progress Note : Progress Note Pain was treated first with fentanyl and then with hydrocodone. Work-up was focused more on abdominal pain and hip pain given results of the physical exam. Imaging work-up was initiated with x-rays of the left hip and pelvis which were unremarkable for acute pathology. KUB was also unremarkable for acute pathology. Labs were obtained, reviewed, and interpreted by me. CBC, CMP, lipase, and CRP were grossly unremarkable except for chronic anemia with hemoglobin of 9.0. Urinalysis demonstrated pyuria. Further imaging was obtained with CT of the abdomen and pelvis. Findings of the CT included hiatal hernia and possible duodenitis. Based on findings of her work-up and her exam, her pain seems to originate more from a GI or source rather than a musculoskeletal source. We will focus on treating these problems including hiatal hernia and possible duodenitis as well as urinary tract infection. See prescriptions and discharge instructions for discussion of treatment plan. Rocephin was given in the ER for initial antibiotic therapy for UTI. Diagnostic Imaging Diagonstic Imaging: Xray Plain Films/CT/US/NM/MRI: pelvis, hip Comments NAME: DARCI PISANO [facility] REC#: [id number] PT STATUS: REG ER : 1935 PHYSICIAN: JEREMIAH CUENCA MD ADMIT DATE: 08/11/22/ER Signed Date of Exam:08/11/22 PELVIS WITH LEFT HIP 2-3 VIEWS INDICATION: Left-sided hip pain, nausea and diarrhea. AP pelvis and two-view left hip performed. There is total hip arthroplasties bilaterally both appeared intact. No dislocation of the femoral head prostheses. Acetabular orientation normal. There is some underlying bony demineralization but no appreciable acute or subacute fracture. IMPRESSION: Good appearance of bilateral hip replacements. No acute finding apparent. Dictated by: Dictated on workstation # [id number] Dict: 08/11/22 1448 Trans: 08/11/22 1602 [facility] [id number] Interpreted by: VITOR CUELLO Electronically signed by: VITOR CUELLO 08/11/22 1602 Diagonstic Imaging: Xray Plain Films/CT/US/NM/MRI: abdomen, pelvis Comments NAME: DARCI PISANO [facility] REC#: [id number] PT STATUS: REG ER : 1935 PHYSICIAN: JEREMIAH CUENCA MD ADMIT DATE: 08/11/22/ER Signed Date of Exam:08/11/22 ABDOMEN/KUB 1VIEW CLINICAL INDICATION: Patient left-sided hip pain x2 months with extremely painful increased since morning around 200 hours. Patient with nausea and denies diarrhea. Patient has occasional constipation. EXAM: X-ray of the abdomen with multiple supine views. COMPARISON: CT scan of the abdomen and pelvis without contrast dated 01/05/2021. FINDINGS: There is a nonobstructed bowel gas pattern. There is no evidence of abdominal free air. There is a small to moderate amount stool involving the right colon, transverse colon, possibly sigmoid colon region. Again seen phleboliths overlying the pelvis. Stable chronic calcification seen superiorly medial to the iliac crests and adjacent left side of the L2-L3 endplate region. There are hypertrophic spurs involving the lumbar spine. Bilateral hip arthroplasties are seen. IMPRESSION: There is no radiographic evidence for acute abdominal/ pelvic process or urinary tract stones. There is a small to moderate amount of stool, described above. Dictated by: Dictated on workstation # [id number] Dict: 08/11/22 1450 Trans: 08/11/221756 [facility] [id number] Interpreted by: AMANDA MCRAE MD Electronically signed by: AMANDA MCRAE MD 08/11/221756 Diagonstic Imaging: CT Plain Films/CT/US/NM/MRI: abdomen, pelvis Comments NAME: DARCI PISANO [facility] REC#: [id number] PT STATUS: REG ER : 1935 PHYSICIAN: JEREMIAH CUENCA MD ADMIT DATE: 08/11/22/ER Signed Date of Exam:08/11/22 CT ABDOMEN/PELVIS W CLINICAL INDICATION: Patient with left-sided head pain x2 months, which is extremely painful and increased around 10:00 a.m. today. Patient has nausea. EXAM: Axial CT scan of the abdomen and pelvis performed with 100 mL of Omnipaque 350 IV contrast. Sagittal and coronal reformatted images are created. Auto Exposure Controls were utilized during the CT exam to meet ALARA standards for radiation dose reduction. COMPARISON: CT scan of the abdomen and pelvis without contrast dated 01/05/2021. FINDINGS: There is mild bibasilar atelectasis. There are parenchymal bands in both lung bases as well. There is no fracture seen. There are degenerative spurs involving the visualized lower thoracic spine and lumbar spine. Bilateral hip arthroplasties are seen with no gross abnormality. There are no fractures involving the hips or pelvis. There is no soft tissue abnormality seen adjacent to the hips. The liver, spleen, pancreas, and adrenal glands are unremarkable. The gallbladder is decompressed with minimal fluid within it. Gallbladder is otherwise unremarkable. Bilateral renal cysts are seen with the largest cyst measuring 5.4 cm involving the upper aspect of the left kidney, which has increased in size compared to the prior study. Previously, this cyst measured 4.7 cm in greatest axial dimension. There is no hydronephrosis, stone, or mass. Hip arthroplasties cause streak artifact obscuring portions of the pelvis and bladder. Bladder is grossly unremarkable as visualized. There is no intra-abdominal free air or free fluid. There is no intestinal obstruction. There is a moderate-sized hiatal hernia. There is nonspecific wall thickening involving the second portion of the duodenum. This may be related to contraction, but duodenitis cannot be completely excluded. There is diverticulosis involving the sigmoid colon and descending colon, but no CT evidence of diverticulitis. There is no lymphadenopathy. There is no aneurysmal dilation of the abdominal aorta or common iliac arteries. The extra-abdominal and extrapelvic soft tissue structures are unremarkable. IMPRESSION: 1: There is wall thickening involving the second portion of the duodenum, which is nonspecific. This may represent contraction versus duodenitis. 2: Otherwise, there is no CT evidence of acute abdominal or pelvic process. 3: There is moderate-sized hiatal hernia. 4: The gallbladder is decompressed. Dictated by: Dictated on workstation # [id number] Dict: 08/11/221731 Trans: 08/11/221756 [id number] Interpreted by: AMANDA MCRAE MD Electronically signed by: AMANDA MCRAE MD 08/11/221756 Departure Impression Primary Impression: Urinary tract infection Qualified Codes: N39.0 - Urinary tract infection, site not specified Additional Impressions: Upper abdominal pain Hiatal hernia Left lower quadrant pain Disposition: 01 HOME, SELF-CARE Condition: Stable Departure-Patient Inst. Decision time for Depature: 18:28 Referrals: DEANGELO FIGUEROA MD (PCP/Family) Primary Care Physician Patient Instructions: Abdominal Pain, Adult ED, Hiatal hernia, Urinary Tract Infection, Adult ED Add. Discharge Instructions: The exact cause of your pain is uncertain. Your lower abdominal pain near the left groin may be related to urinary tract infection. Your upper abdominal pain may be related to hiatal hernia and/or inflammation in the duodenum (the first part of the small intestine). For urinary tract infection, complete the entire course of antibiotics as prescribed. Contact Dr. Figueroa's office after 48 hours to review urine culture results. Also schedule a follow-up appointment for sometime within the next week for reevaluation. Drink plenty of clear liquids to stay well- hydrated. To reduce pain associated with a hiatal hernia and inflammation of the duodenum, add Pepcid (famotidine) to your medications. Also avoid the following: Eating large meals, eating close to bedtime, caffeine, carbonation, chocolate, citrus fruits and juices, tomato products, mints, alcohol, tobacco, fatty/greasy foods, NSAID medications such as ibuprofen or naproxen, spicy foods, and anything else you know irritate your stomach. Use your hydrocodone as prescribed for treatment of pain. Return to the ER if you have worsening symptoms despite following these instructions. All discharge instructions reviewed with patient and/or family. Voiced unders tanding. Scripts Hydrocodone/Acetaminophen (Hydrocodone-Acetamin 10-325 mg) 10 Mg-325 Mg Tablet 1-1.5 EACH PO Q6H PRN for PAIN-MODERATE (5-7), #10 TAB Prov: JEREMIAH CUENCA MD 08/11/22 Famotidine (Pepcid) 20 Mg Tablet 20 MG PO BID, #60 TAB Prov: JEREMIAH CUENCA MD 08/11/22 Cephalexin (Cephalexin) 500 Mg Tablet 500 MG PO TID, #20 TAB Prov: JEREMIAH CUENCA MD 08/11/22 Copy Copies To 1: DEANGELO FIGUEROA MD, JOSHUA T MD Aug 11, 2022 15:18
[2022-08-11 15:27] LABS: BASOPHILS % (AUTO) 0 % (0-10); EOSINOPHILS # (AUTO) 0.1 10^3/uL (0.0-0.3); EOSINOPHILS % (AUTO) 1 % (0-10); HEMATOCRIT 31 % (35-52); LYMPHOCYTES # (AUTO) 1.2 10^3/uL (1.0-4.0); LYMPHOCYTES % (AUTO) 13 % (12-44); MEAN CORPUSCULAR HEMOGLOBIN 24 pg (25-34); MEAN CORPUSCULAR HGB CONC 29 g/dL (32-36); MEAN CORPUSCULAR VOLUME 82 fL (80-99); MONOCYTES # (AUTO) 0.6 10^3/uL (0.0-1.0); MONOCYTES % (AUTO) 7 % (0-12); NEUTROPHILS # (AUTO) 7.1 10^3/uL (1.8-7.8); NEUTROPHILS % (AUTO) 78 % (42-75); PLATELET COUNT 305 10^3/uL (130-400); WHITE BLOOD COUNT 9.1 10^3/uL (4.3-11.0)
[2022-08-11] MEDS ORDERED: fentaNYL INJ 100 MCG/2 ML AMP IVP ONE (15:30)
[2022-08-11 15:49] LABS: BILIRUBIN,URINE NEGATIVE (NEGATIVE); CLARITY,URINE CLEAR; COLOR,URINE YELLOW; GLUCOSE, URINE (UA) NEGATIVE (NEGATIVE); KETONES,URINE NEGATIVE (NEGATIVE); LEUKOCYTE ESTERASE ,URINE TRACE (NEGATIVE); NITRITE,URINE POSITIVE (NEGATIVE); PH,URINE 7.5 (5-9); PROTEIN,URINE NEGATIVE (NEGATIVE)
[2022-08-11 15:55] LABS: ALBUMIN 3.6 GM/DL (3.2-4.5)
[2022-08-11 15:56] LABS: POTASSIUM 3.7 MMOL/L (3.6-5.0)
[2022-08-11 15:57] LABS: CALCIUM 9.1 MG/DL (8.5-10.1)
[2022-08-11 15:58] LABS: TOTAL PROTEIN 6.9 GM/DL (6.4-8.2)
[2022-08-11 16:00] LABS: BILIRUBIN,TOTAL 0.3 MG/DL (0.1-1.0)
[2022-08-11 16:02] LABS: BACTERIA,URINE LARGE /HPF; SQUAMOUS EPITHELIAL CELL,UR 0-2 /HPF; WBC,URINE 0-2 /HPF
[2022-08-11 16:02] LABS: CREATININE SERUM 0.82 MG/DL (0.60-1.30)
[2022-08-11] MEDS ORDERED: NS 100 ML (IVPB) BAG IV ONE (17:00)
[2022-08-11] MEDS ORDERED: IOHEXOL 350 MG/ML 100 ML (OMNIPAQUE 350) VIAL IV ONE (17:00)
--- NOTE | 2022-08-11 17:44 | Diagnostic Imaging Report ---
CLINICAL INDICATION: Patient with left-sided head pain x2 months, which is extremely painful and increased around 10:00 a.m. today. Patient has nausea. EXAM: Axial CT scan of the abdomen and pelvis performed with 100 mL of Omnipaque 350 IV contrast. Sagittal and coronal reformatted images are created. Auto Exposure Controls were utilized during the CT exam to meet ALARA standards for radiation dose reduction. COMPARISON: CT scan of the abdomen and pelvis without contrast dated 01/05/2021. FINDINGS: There is mild bibasilar atelectasis. There are parenchymal bands in both lung bases as well. There is no fracture seen. There are degenerative spurs involving the visualized lower thoracic spine and lumbar spine. Bilateral hip arthroplasties are seen with no gross abnormality. There are no fractures involving the hips or pelvis. There is no soft tissue abnormality seen adjacent to the hips. The liver, spleen, pancreas, and adrenal glands are unremarkable. The gallbladder is decompressed with minimal fluid within it. Gallbladder is otherwise unremarkable. Bilateral renal cysts are seen with the largest cyst measuring 5.4 cm involving the upper aspect of the left kidney, which has increased in size compared to the prior study. Previously, this cyst measured 4.7 cm in greatest axial dimension. There is no hydronephrosis, stone, or mass. Hip arthroplasties cause streak artifact obscuring portions of the pelvis and bladder. Bladder is grossly unremarkable as visualized. There is no intra-abdominal free air or free fluid. There is no intestinal obstruction. There is a moderate-sized hiatal hernia. There is nonspecific wall thickening involving the second portion of the duodenum. This may be related to contraction, but duodenitis cannot be completely excluded. There is diverticulosis involving the sigmoid colon and descending colon, but no CT evidence of diverticulitis. There is no lymphadenopathy. There is no aneurysmal dilation of the abdominal aorta or common iliac arteries. The extra-abdominal and extrapelvic soft tissue structures are unremarkable. IMPRESSION: 1: There is wall thickening involving the second portion of the duodenum, which is nonspecific. This may represent contraction versus duodenitis. 2: Otherwise, there is no CT evidence of acute abdominal or pelvic process. 3: There is moderate-sized hiatal hernia. 4: The gallbladder is decompressed. Dictated by: Dictated on workstation # [id number]
[2022-08-11] MEDS ORDERED: cefTRIAXone PRE-MIX 50 ML IV STA (18:10)
[2022-08-11] MEDS ORDERED: HYDROcodone/APAP 5 MG/325 MG (LORTAB) TAB PO ONE (18:30)
[2022-08-11] MEDS ORDERED: CEPH500T PO (18:35)
[2022-08-11] MEDS ORDERED: HYDR-3820 PO (18:36)
[2022-08-11] MEDS ORDERED: FAMO-119 PO (18:36)
[2022-08-11 18:49] VITALS: BP 129/91
== END 2022-08-11 18:55 | disposition home or self-care (01) ==
LOC: EDUNIT# 13:10 → ER 13:12
DX: N39.0 Urinary tract infection, site not specified (principal); K44.9 Diaphragmatic hernia without obstruction or gangrene; E66.9 Obesity, unspecified; Z68.36 Body mass index [BMI] 36.0-36.9, adult; Z87.891 Personal history of nicotine dependence; Z90.49 Acquired absence of other specified parts of digestive tract
CPT/HCPCS: 36415; 74018; 74177; 80053; 81000; 83690; 85025; 86141; 87077; 87088; 87186

== ENCOUNTER 2022-10-09 05:29 | Outpatient (CLI) | payer MEDICARE, MEDICAID ==
[~2022-10-09] VITALS: Ht 167.8 cm; Wt 97.7 kg
[~2022-10-09 05:29] MED LIST changes: +CEPH500T PO; +FAMO-119 PO; +POTA-185 PO; -POTA10CA44 PO; +POTA10CA84 PO; -POTA10TA PO
[2022-10-10] MEDS ORDERED: POLY17PO6 PO (07:40)
== END 2022-10-10 08:14 | disposition home or self-care (01) ==
LOC: PREOP 05:29
PROVIDERS: ATTEND Surgery
DX: Z01.818 Encounter for other preprocedural examination (principal)

== ENCOUNTER 2022-12-12 14:02 | Inpatient (IN) | payer MEDICARE, MEDICAID ==
[~2022-12-12] VITALS: Ht 172.7 cm; Wt 92.3 kg
[~2022-12-12 14:02] MED LIST changes: +POLY17PO6 PO; -ROPI0.253 PO; +ROPI0.2533 PO
[2022-12-12] MEDS ORDERED: NS IV 500 ML 500 ML IV SCH (15:45)
[2022-12-12] MEDS ORDERED: ACETAMINOPHEN 500 MG TABLET PO PRN (15:45)
[2022-12-12 16:14] LABS: CLARITY,URINE CLEAR; COLOR,URINE YELLOW; PROTEIN,URINE NEGATIVE (NEGATIVE)
[2022-12-12 16:15] LABS: BACTERIA,URINE FEW /HPF; BILIRUBIN,URINE NEGATIVE (NEGATIVE); GLUCOSE, URINE (UA) NEGATIVE (NEGATIVE); KETONES,URINE NEGATIVE (NEGATIVE); LEUKOCYTE ESTERASE ,URINE 1+ (NEGATIVE); NITRITE,URINE NEGATIVE (NEGATIVE)
[2022-12-12 16:30] LABS: BASOPHILS % (AUTO) 0 % (0-10); EOSINOPHILS # (AUTO) 0.3 10^3/uL (0.0-0.3); EOSINOPHILS % (AUTO) 4 % (0-10); HEMATOCRIT 27 % (35-52); HEMOGLOBIN 7.4 g/dL (11.5-16.0); LYMPHOCYTES # (AUTO) 1.2 10^3/uL (1.0-4.0); LYMPHOCYTES % (AUTO) 17 % (12-44); MEAN CORPUSCULAR HEMOGLOBIN 21 pg (25-34); MEAN CORPUSCULAR HGB CONC 27 g/dL (32-36); MEAN CORPUSCULAR VOLUME 78 fL (80-99); MEAN PLATELET VOLUME 10.3 fL (9.0-12.2); MONOCYTES # (AUTO) 0.5 10^3/uL (0.0-1.0); MONOCYTES % (AUTO) 7 % (0-12); NEUTROPHILS # (AUTO) 5.4 10^3/uL (1.8-7.8); NEUTROPHILS % (AUTO) 72 % (42-75); PLATELET COUNT 281 10^3/uL (130-400); WHITE BLOOD COUNT 7.4 10^3/uL (4.3-11.0)
[2022-12-12 16:31] VITALS: BP 103/60
[2022-12-12] MEDS: NS IV 500 ML 500 ML IV SCH (16:40)
[2022-12-12] MEDS: inSUlin ASPART 1 UNIT/0.01 ML (PER UNIT) SC SCH ×2 (16:42→21:50)
[2022-12-12 16:44] LABS: POTASSIUM 3.7 MMOL/L (3.6-5.0)
[2022-12-12 16:46] LABS: CALCIUM 8.9 MG/DL (8.5-10.1)
[2022-12-12 16:50] LABS: CREATININE SERUM 0.96 MG/DL (0.60-1.30)
[2022-12-12 17:57] VITALS: BP 125/72
[2022-12-12 20:35] VITALS: BP 119/76
[2022-12-13] VITALS (8 sets, daily range): BP systolic 114–138; BP diastolic 56–74
[2022-12-13 00:13] LABS: HEMOGLOBIN 8.1 g/dL (11.5-16.0)
[2022-12-13 05:39] LABS: BASOPHILS % (AUTO) 0 % (0-10); EOSINOPHILS # (AUTO) 0.3 10^3/uL (0.0-0.3); EOSINOPHILS % (AUTO) 5 % (0-10); HEMATOCRIT 29 % (35-52); HEMOGLOBIN 8.1 g/dL (11.5-16.0); LYMPHOCYTES # (AUTO) 1.2 10^3/uL (1.0-4.0); LYMPHOCYTES % (AUTO) 17 % (12-44); MEAN CORPUSCULAR HEMOGLOBIN 22 pg (25-34); MEAN CORPUSCULAR HGB CONC 28 g/dL (32-36); MEAN CORPUSCULAR VOLUME 79 fL (80-99); MEAN PLATELET VOLUME 10.6 fL (9.0-12.2); MONOCYTES # (AUTO) 0.5 10^3/uL (0.0-1.0); MONOCYTES % (AUTO) 8 % (0-12); NEUTROPHILS # (AUTO) 4.7 10^3/uL (1.8-7.8); NEUTROPHILS % (AUTO) 70 % (42-75); PLATELET COUNT 272 10^3/uL (130-400); WHITE BLOOD COUNT 6.7 10^3/uL (4.3-11.0)
[2022-12-13] MEDS: inSUlin ASPART 1 UNIT/0.01 ML (PER UNIT) SC SCH ×4 (06:52→20:12)
[2022-12-13] MEDS: POTASSIUM CHLORIDE 10 MEQ TABLET PO SCH ×2 (08:54→20:12)
[2022-12-13] MEDS: PANTOPRAZOLE 40 MG TABLET PO SCH (08:54)
[2022-12-13] MEDS: TORSEMIDE 10 MG (DEMADEX) TABLET PO SCH (08:55)
[2022-12-13] MEDS: NS IV 500 ML 500 ML IV SCH (08:58)
[2022-12-13] MEDS: IRON SUCROSE 200 MG/10 ML VIAL IV SCH (10:39)
--- NOTE | 2022-12-13 11:21 | History & Physical-Hospitalist ---
History of Present Illness HPI/Chief Complaint Patient is a frail 87-year-old white female with cor pulmonale reportedly due to longstanding severe obstructive sleep apnea with noncompliance with CPAP. She was discharged on the third of this month from acute rehab secondary to heart failure admission with exacerbation of cor pulmonale. She was discharged with a hemoglobin in the mid 8 range and reported the onset of bright red blood per rectum reportedly large-volume on multiple occasions starting about 36 hours prior to this hospital admission. It was painless. In the past that she has had some rectal bleeding but is usually been when she was taking Eliquis for persistent atrial fibrillation. She had been off of Eliquis however this time and was on no other anticoagulant medication. She saw Malissa MCGARRY her primary care provider where an office fingerstick was down to the low 7 range and she is feeling quite weak. She was simply made a direct admission for further investigation due to her GI bleed. In her last colonoscopy a little over a year ago héctor Manning did note grade 2 and 3 hemorrhoids as well as diverticular disease. She also had LA grade B erosive esophagitis with large hiatal hernia. She currently denies melena or any heartburn type symptoms but just reported feeling weak. She denied shortness of breath or chest pain at rest. She had denies use of any nonsteroidal medication or aspirin. Date Seen 12/13/22 Time Seen by a Provider: 10:00 Attending Physician Amber Figueroa MD PCP Admitting Physician: Jackson Carlin MD Attending Physician: Jackson Carlin MD Referring Physician Date of Admission Dec 12, 2022 at 14:41 Home Medications & Allergies Home Medications Reviewed patient Home Medication Reconciliation performed by pharmacy medication reconciliations master automotive glass technician and/or nursing. Patients Allergies have been reviewed. Allergies Allergies Coded Allergies No Known Drug Allergies (Unverified10/10/22) Past Ezbmtpm-[id number]-Hclzgf Hx Patient Social History Tobacco Use?: No Smoking Status: Former Smoker Use of E-Cig and/or Vaping dev: No Substance use?: No Alcohol Use?: Yes Alcohol type: Beer Alcohol Frequency: Rarely Pt feels they are or have been: No Immunizations Up To Date Date of Influenza Vaccine: Dec 19, 2021 First/Initial COVID19 Vaccinat: AUGUST 2020 Second COVID19 Vaccination Sacha: SEPTEMBER 2020 Tetanus Booster (TDap): Unknown Hepatitis A: Yes Hepatitis B: Yes Date of Pneumonia Vaccine: Aug 08, 2019 Seasonal Allergies Seasonal Allergies: No Current Status Communicates: Verbally Primary Language: [place] Citizen Preferred Spoken Language: [place] Citizen Sensory deficits: Vision impairment Additional sensory deficits: glasses for reading Implanted or Applied Medical D: Orthopedic hardware Past Medical History Surgeries: Appendectomy, Eye Surgery, Hysterectomy, Joint Replacement, Neurological, Oophorectomy, Orthopedic, Urinary Diversion COPD Currently Using CPAP: No Currently Using BIPAP: No Atrial Fibrillation, Chronic Edema/Swelling, Coronary Artery Disease, High Cholesterol, Hypertension Neuropathy, Stroke, TIA, Vertigo 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: Hysterectomy, Menopausal Sexually Transmitted Disease: No HIV/AIDS: No Renal Failure, UTI-Chronic Gastroesophageal Reflux, Gastrointestinal Bleed, Chronic Constipation, Diverticulosis, Polyps, Hiatal Hernia, Gall Bladder Disease Degenerate Disk Disease, Arthritis, Chronic Back Pain, Fractures Diabetes, Insulin dep Cataract Loss of Vision: Denies Hearing Impairment: Hard of Hearing Anxiety, Depression Blood Disorders: Yes (ANEMIA) Adverse Reaction/Blood Tranf: No (RECEIVED 3 UNITS EARLY 2022 - NO ADVERSE REACTIONS) Family Medical History Myocardial infarction 19 MOTHER Heart Disease, Hypertension SOCIAL HISTORY: -SMOKED IN PAST, QUIT 1984 -ETOH--OCCASIONAL USE IN PAST, NONE FOR YEARS -DRUGS--DENIES USE PAST SURGICAL HISTORY: -BILATERAL CATARACTS 01/2019 -PORT PLACED/LATER REMOVED -BILATERAL KNEE REPLACEMENTS -RIGHT KNEE SCOPE/TORN MENISCUS 11/16/[address] BAILEY. -BILATERAL WRIST SURGERY -SURGERY FOR BRAIN ANEURYSM -COLONOSCOPIES/POLYPECTOMIES -EGD'S -APPENDECTOMY -HYSTERECTOMY/BILATERAL SALPINGO-OOPHORECTOMY -BLADDER SURGERY -CARDIAC CATH-NO INTERVENTION Review of Systems Constitutional: see HPI Physical Exam Physical Exam Vital Signs Vital Signs - First Documented 12/12/22 12/12/22 15:00 16:31 Temp 36.4 Pulse 88 Resp 18 B/P (MAP) 103/60 (74) Pulse Ox 100 O2 Delivery Nasal Cannula O2 Flow Rate 4.00 Capillary Refill : Height, Weight, BMI Height: 5'8.00" Weight: 212lbs. 7.0oz. 96.172532ga; 30.94 BMI Method:Stated General Appearance: Chronically ill, Obese Respiratory: Chest Non Tender, Lungs Clear, Normal Breath Sounds, No Accessory Muscle Use, No Respiratory Distress Cardiovascular: No Gallop, No JVD, No Murmur, Irregularly Irregular Gastrointestinal: Normal Bowel Sounds, No Organomegaly, No Pulsatile Mass, Non Tender, Soft Extremity: Non Tender, Other (Trace edema to the mid tibia bilaterally with some chronic venous insufficiency change no ulceration or significant dermatitis noted.) Neurologic/Psychiatric: Alert, Oriented x3 Results Results/Procedures Labs Laboratory Tests 12/12/22 16:25 12/13/22 00:05 12/13/22 05:20 Patient resulted labs reviewed. Assessment/Plan Admission Diagnosis 1. Rectal bleeding with exacerbation of underlying iron deficiency anemia and suspect a component of chronic disease as well. Patient received 1 unit of packed cells and her hemoglobin is up to 8.2 we will give 1 more unit as she is not likely going to be able to replace loss from some continued bleeding last bloody stool was this morning. There is been no evidence for hemodynamic instability at this time. Continue to hold anticoagulant therapy. We will also initiate IV iron and continue conservative management. Bleeding source is most likely hemorrhoidal aggravated by cor pulmonale although cannot rule out diverticular bleeding. If rectal bleeding is not moderating will require surgical consultation for diagnostic/therapeutic potential for colonoscopy. 2.Chronic CHF and cor pulmonale - 2D Echo done 01/27/[address] Barker showing mild diffuse hypokinesia with EF 45%. Dilated right and left atrium, moderate MR, severe TR. PA 75-80mmHg. Severe pulmonary hypertension with dilated right heart chambers. Significant deterioration compared to the previous echo from 2020. - Echocardiogram at [facility] by Dr. Corona is reported to show severe TR with e levated PASP (report not available) 3. Type 2 diabetes sliding scale insulin for now has been under reasonable control with diabetic diet. 4. History of hypertension we will be holding antihypertensive medication unless she becomes significantly hypertensive current blood pressures within normal limits. 1 dose of torsemide was given we will monitor response. Hold Lasix for now Likely resume as I was expecting the patient to have significantly more edema than she presented with. Admission Status: Inpatient Order (span 2 midnights) Reason for Inpatient Admission: See admission diagnosis JACKSON CARLIN MD Dec 13, 2022 11:21
[2022-12-13] MEDS ORDERED: HYDROcodone/ACETAMINOPHEN 10/325 TABLET PO ONE (20:19)
[2022-12-13] MEDS: HYDROcodone/ACETAMINOPHEN 10/325 TABLET PO PRN (20:21)
[2022-12-14] MEDS: NS IV 500 ML 500 ML IV SCH ×2 (02:10→17:22)
[2022-12-14 03:53] VITALS: BP 140/74
[2022-12-14] MEDS: inSUlin ASPART 1 UNIT/0.01 ML (PER UNIT) SC SCH ×4 (05:40→20:14)
[2022-12-14] MEDS: HYDROcodone/ACETAMINOPHEN 10/325 TABLET PO PRN ×2 (05:48→20:20)
[2022-12-14 08:19] VITALS: BP 143/77
[2022-12-14] MEDS: TORSEMIDE 10 MG (DEMADEX) TABLET PO SCH (08:59)
[2022-12-14] MEDS: PANTOPRAZOLE 40 MG TABLET PO SCH (08:59)
[2022-12-14] MEDS: POTASSIUM CHLORIDE 10 MEQ TABLET PO SCH ×2 (08:59→20:19)
[2022-12-14 09:08] LABS: BASOPHILS % (AUTO) 1 % (0-10); EOSINOPHILS # (AUTO) 0.2 10^3/uL (0.0-0.3); EOSINOPHILS % (AUTO) 4 % (0-10); HEMATOCRIT 34 % (35-52); HEMOGLOBIN 9.7 g/dL (11.5-16.0); LYMPHOCYTES # (AUTO) 1.2 10^3/uL (1.0-4.0); LYMPHOCYTES % (AUTO) 20 % (12-44); MEAN CORPUSCULAR HEMOGLOBIN 23 pg (25-34); MEAN CORPUSCULAR HGB CONC 29 g/dL (32-36); MEAN CORPUSCULAR VOLUME 80 fL (80-99); MEAN PLATELET VOLUME 10.1 fL (9.0-12.2); MONOCYTES # (AUTO) 0.4 10^3/uL (0.0-1.0); MONOCYTES % (AUTO) 7 % (0-12); NEUTROPHILS % (AUTO) 68 % (42-75); PLATELET COUNT 245 10^3/uL (130-400)
--- NOTE | 2022-12-14 10:50 | Progress Note - Hospitalist ---
Subjective HPI/CC On Admission Date Seen by Provider: Dec 14, 2022 Time Seen by Provider: 10:00 Patient is a frail 87-year-old white female with cor pulmonale reportedly due to longstanding severe obstructive sleep apnea with noncompliance with CPAP. She was discharged on the third of this month from acute rehab secondary to heart failure admission with exacerbation of cor pulmonale. She was discharged with a hemoglobin in the mid 8 range and reported the onset of bright red blood per rectum reportedly large-volume on multiple occasions starting about 36 hours prior to this hospital admission. It was painless. In the past that she has had some rectal bleeding but is usually been when she was taking Eliquis for persistent atrial fibrillation. She had been off of Eliquis however this time and was on no other anticoagulant medication. She saw Malissa MCGARRY her primary care provider where an office fingerstick was down to the low 7 range and she is feeling quite weak. She was simply made a direct admission for fu rther investigation due to her GI bleed. In her last colonoscopy a little over a year ago héctor Manning did note grade 2 and 3 hemorrhoids as well as diverticular disease. She also had LA grade B erosive esophagitis with large hiatal hernia. She currently denies melena or any heartburn type symptoms but just reported feeling weak. She denied shortness of breath or chest pain at rest. She had denies use of any nonsteroidal medication or aspirin. Subjective/Events-last exam Patient still reports painless bright red blood per rectum although volume appears to be diminishing. It still occurs each time she goes to the bathroom was up several times last night to urinate but each time passed small amount of bright red blood. She reports feeling stronger today having received another unit of packed cells yesterday her second and 200 mg of iron sucrose IV. She denies nausea or vomiting and denies shortness of breath at rest. Objective Exam Vital Signs Vital Signs Date Time Temp Pulse Resp B/P (MAP) Pulse Ox O2 Delivery O2 Flow Rate FiO2 12/14/22 08:30 Nasal Cannula 4.00 12/14/22 08:19 36.8 100 20 143/77 (99) 98 Capillary Refill : General Appearance: No Apparent Distress, Chronically ill Respiratory: No Accessory Muscle Use, No Respiratory Distress, Other (Diminished breath sounds posteriorly without wheezes rales or rhonchi.) Cardiovascular: No Gallop, No Murmur, Irregularly Irregular, Other ( Trace lower extremity edema no upper extremity edema) Gastrointestinal: Normal Bowel Sounds, Non Tender Results/Procedures Lab Laboratory Tests 12/14/22 08:56 Patient resulted labs reviewed. Assessment/Plan Assessment and Plan Assess & Plan/Chief Complaint 1. Rectal bleeding with exacerbation of underlying iron deficiency anemia and suspect a component of chronic disease as well. PatientHalavon received 2 units of packed cells total and 200 mg of IV iron sucrose yesterday. Hemoglobin was up to 9.7 despite the fact that she still having intermittent rectal bleeding. She will get another dose of iron tomorrow. Discussed if bleeding was significant enough to continue to lead to ongoing anemia despite iron replacement would need colonoscopy with hemorrhoidal or diverticular bleeding being most likely. Continue conservative management considering advanced age with severe pulmonary hypertension. There is been no evidence for hemodynamic instability at this time. Continue to hold anticoagulant therapy. We will also initiate IV iron and continue conservative management. 2.Chronic CHF and cor pulmonale - 2D Echo done 01/27/[address] Barker showing mild diffuse hypokinesia with EF 45%. Dilated right and left atrium, moderate MR, severe TR. PA 75-80mmHg. Severe pulmonary hypertension with dilated right heart chambers. Significant deterioration compared to the previous echo from 2020. - Echocardiogram at [facility] by Dr. Corona is reported to show severe TR with elevated PASP (report not available) 3. Type 2 diabetes sliding scale insulin for now has been under reasonable control with diabetic diet. 4. History of hypertension we will be holding antihypertensive medication unless she becomes significantly hypertensive current blood pressures within normal limits. continuing diuretic therapy in the form of torsemide 20 mg daily JACKSON FREEMAN MD Dec 14, 2022 10:50
[2022-12-14 12:02] VITALS: BP_SYST 137; BP_SYST 162; BP_DIAS 73; BP_DIAS 78
[2022-12-14 16:55] VITALS: BP 140/76
[2022-12-14 19:24] VITALS: BP 145/67
[2022-12-14] MEDS ORDERED: rOPINIRole 0.25 MG TABLET ONE (20:18)
[2022-12-14] MEDS ORDERED: rOPINIRole 0.25 MG TABLET PO SCH (21:00)
[2022-12-14 23:42] VITALS: BP 138/65
[2022-12-15 05:22] LABS: BASOPHILS % (AUTO) 1 % (0-10); EOSINOPHILS # (AUTO) 0.3 10^3/uL (0.0-0.3); EOSINOPHILS % (AUTO) 5 % (0-10); HEMATOCRIT 34 % (35-52); HEMOGLOBIN 9.5 g/dL (11.5-16.0); LYMPHOCYTES # (AUTO) 1.5 10^3/uL (1.0-4.0); LYMPHOCYTES % (AUTO) 24 % (12-44); MEAN CORPUSCULAR HEMOGLOBIN 23 pg (25-34); MEAN CORPUSCULAR HGB CONC 28 g/dL (32-36); MEAN CORPUSCULAR VOLUME 81 fL (80-99); MONOCYTES # (AUTO) 0.5 10^3/uL (0.0-1.0); MONOCYTES % (AUTO) 9 % (0-12); NEUTROPHILS # (AUTO) 3.7 10^3/uL (1.8-7.8); NEUTROPHILS % (AUTO) 61 % (42-75); PLATELET COUNT 245 10^3/uL (130-400); WHITE BLOOD COUNT 6.1 10^3/uL (4.3-11.0)
[2022-12-15 05:42] LABS: CALCIUM 9.4 MG/DL (8.5-10.1)
[2022-12-15] MEDS: inSUlin ASPART 1 UNIT/0.01 ML (PER UNIT) SC SCH ×2 (05:54→11:40)
[2022-12-15 08:55] VITALS: BP 124/79
[2022-12-15] MEDS: IRON SUCROSE 200 MG/10 ML VIAL IV SCH (09:37)
[2022-12-15] MEDS: TORSEMIDE 10 MG (DEMADEX) TABLET PO SCH (09:37)
[2022-12-15] MEDS: PANTOPRAZOLE 40 MG TABLET PO SCH (09:37)
[2022-12-15] MEDS: POTASSIUM CHLORIDE 10 MEQ TABLET PO SCH (09:37)
[2022-12-15] MEDS ORDERED: HYDR-3820 PO (09:57)
[2022-12-15] MEDS ORDERED: INSU100V37 SQ (09:57)
[2022-12-15] MEDS ORDERED: FAMO-356 PO (09:57)
[2022-12-15] MEDS: NS IV 500 ML 500 ML IV SCH (11:42)
[2022-12-15 12:00] VITALS: BP 136/76
[2022-12-15] MEDS ORDERED: FERR-84 PO (14:02)
--- NOTE | 2022-12-15 14:28 | D/C HH Face to Face Order ---
D/C Face to Face Orders Instructions for Patient Via [facility], Patient Instructions/FollowUp: see instructions Physician to follow Patient: [place] Discharge Diet for Home: ADA Diet Patient Data-Allergies,Ht & Wt Patient Allergies: Coded Allergies: No Known Drug Allergies (Unverified , 10/10/22) Height (Feet): 5 Height (Inches): 8.00 Weight (Pounds): 212 Weight (Ounces): 7.0 Home Health Need/Face to Face Date of Face to Face: Dec 15, 2022 Clinical Findings: Generalized weakness and fatigue, Instability, Muscle weakness, Unsteady gait I have seen Pt [id number]: Yes Discharged To: Home Diagnosis/Conditions: Iron deficiency anemia HTN HFpEF T2DM Obesity Debility Problems/Diagnosis/Condition: (1) Debility (2) Anemia (3) HTN (hypertension) (4) Insulin dependent diabetes mellitus (5) Obesity Patient is Homebound due to: Julieta fall risk due to instabilty, Muscle weakness Homebound Status Due to the above stated illness, injury or surgical procedure (medical condition or diagnosis) and associated clinical findings, the patient is homebound because of his/her inability to leave home except with aid of a supportive device and/or person AND leaving the home requires a considerable and taxing effort or is medically contraindicated. Pt req the following assistanc: Aid of another person Home Health Nursing Orders Home Health Services Order: Nursing Services, Accounting System Expert-Evaluate & Treat, Physical Therapy-Evaluate & Treat Home Health Infusion Therapy Line Start Date: Dec 12, 2022 Therapy Orders Therapy Orders: OT (must have SN or PT order), Physical Therapy Therapy Specific Orders: Eval assistive deivces, Teach enviro modifications/safety, Gait training, Increase strength/endurance Certify Stmt I certify that this patient is under my care and that I, a nurse practitioner or a physician; a salon assistant working with me, had a face to face encounter that - meets the physician face to face encounter requirements with this patient as dated. MAYDA SMITH MD Dec 15, 2022 14:28
[2022-12-15] MEDS: HYDROcodone/ACETAMINOPHEN 10/325 TABLET PO PRN (14:52)
--- NOTE | 2022-12-15 16:29 | Discharge Summary ---
Discharge Summary Hospital Course Problems/Dx: (1) Anemia Status: Acute (2) Lower GI bleed Status: Acute (3) ALEXIS (iron deficiency anemia) Status: Acute (4) HTN (hypertension) Status: Chronic (5) T2DM (type 2 diabetes mellitus) Status: Acute (6) Obesity Status: Chronic (7) Debility Status: Chronic Hospital Course Date of Admission: Dec 12, 2022 at 14:41 Admission Diagnosis : Acute on chronic anemia Family Physician/Provider: Deangelo Figueroa MD Date of Discharge: 12/15/22 Discharge Diagnosis: Acute on chronic anemia Hospital Course: Jhonny Zaidi is an 87 year old female who was admitted with acute on chronic anemia. She was having some bright red blood per rectum. She was transfused 2 units PRBC and her hemoglobin increased. She had no further episodes of bleeding. Her hemoglobin was stable. She was also given IV iron. She was discharged home in stable condition. She should continue oral iron supplements. She should have her hemoglobin rechecked in about a week. She should follow up with her PCP, Dr. Figueroa, in about a week. She should resume home health care once returning home. Labs and Pending Lab Test: Laboratory Tests 12/14/22 20:06: Glucometer 166H 12/15/22 05:05: White Blood Count 6.1, Red Blood Count 4.16, Hemoglobin 9.5L, Hematocrit 34L, Mean Corpuscular Volume 81, Mean Corpuscular Hemoglobin 23L, Mean Corpuscular Hemoglobin Concent 28L, Red Cell Distribution Width 25.2H, Platelet Count 245, Mean Platelet Volume 10.0, Immature Granulocyte % (Auto) 0, Neutrophils (%) (Auto) 61, Lymphocytes (%) (Auto) 24, Monocytes (%) (Auto) 9, Eosinophils (%) (Auto) 5, Basophils (%) (Auto) 1, Neutrophils # (Auto) 3.7, Lymphocytes # (Auto) 1.5, Monocytes # (Auto) 0.5, Eosinophils # (Auto) 0.3, Basophils # (Auto) 0.0, Immature Granulocyte # (Auto) 0.0, Sodium Level 141, Potassium Level 4.0, Chloride Level 104, Carbon Dioxide Level 27, Anion Gap 10, Blood Urea Nitrogen 13, Creatinine 1.00, Estimat Glomerular Filtration Rate 55, BUN/Creatinine Ratio 13, Glucose Level 149H, Calcium Level 9.4 12/15/22 11:14: Glucometer 206H Microbiology 12/12/22 Urine Culture - Final, Complete Growth Consistent Home Meds Active Iron (Ferrous Sulfate) 325 Mg (65 Mg Iron) Tablet 325 Mg PO DAILY 30 Days Reported Hydrocodone-Acetamin 10-325 mg (Hydrocodone/Acetaminophen) 10 Mg-325 Mg Tablet 1-2 Each PO Q6H PRN Tresiba (Insulin Degludec) 100 Unit/Ml Vial 20 Unit SQ HS Acid Pocketbook Maker (FAMOTIDINE) (Famotidine) 20 Mg Tablet 20 Mg PO BID Miralax (Polyethylene Glycol 3350) 17 Gram Powd.pack 17 Gm PO DAILY PRN Omeprazole 40 Mg Capsule.dr 40 Mg PO DAILY Ropinirole HCl 0.25 Mg Tablet 0.25 Mg PO HS Potassium Chloride 10 Meq Tab.er.prt 10 Meq PO 0800,1400 Gabapentin 100 Mg Capsule 100 Mg PO TID Novolog Flexpen (Insulin Aspart) 100 Unit/Ml (3 Ml) Solution Units SQ SLIDING/SCALE USES 4 UNITS WITH MEALS ALONG WITH A SLIDING SCALE Novolog Flexpen (Insulin Aspart) 100 Unit/Ml (3 Ml) Solution 4 Units SC AC Furosemide 20 Mg Tablet 40 Mg PO 0800,1400 TAKES 2 (20MG) TABS Escitalopram Oxalate 20 Mg Tablet 20 Mg PO HS LAST FILLED 10/01/2022 #30 30 DAY SUPPLY Simvastatin 20 Mg Tablet 20 Mg PO HS Assessment/Pt Instructions See instructions Discharge Planning: >30 minutes discharge planning Discharge Instructions Discharge Diet: No Restrictions, ADA Diet Discharge Physical Examination Vital Signs Vital Signs Date Time Temp Pulse Resp B/P (MAP) Pulse Ox O2 Delivery O2 Flow Rate FiO2 12/15/22 12:00 Nasal Cannula 4.00 12/15/22 12:00 36.7 93 20 136/76 (96) 95 General Appearance: No Apparent Distress, Obese Respiratory: Lungs Clear, No Respiratory Distress Cardiovascular: Regular Rate, Rhythm, No Murmur Gastrointestinal: Normal Bowel Sounds, Soft Extremity: Normal Inspection, No Pedal Edema Skin: Normal Color, Warm/Dry Neurologic/Psychiatric: Alert, Normal Mood/Affect Allergies: Coded Allergies: No Known Drug Allergies (Unverified , 10/10/22) Copy Copies To 1: DEANGELO FIGUEROA MD Discharge Summary Date of Admission Dec 12, 2022 at 14:41 Date of Discharge Dec 15, 2022 at 15:50 Discharge Date: Dec 15, 2022 Discharge Time: 15:50 Admission Diagnosis Acute on chronic anemia Discharge Diagnosis (1) Anemia Status: Acute (2) Lower GI bleed Status: Acute (3) ALEXIS (iron deficiency anemia) Status: Acute (4) HTN (hypertension) Status: Chronic (5) Insulin dependent diabetes mellitus Status: Chronic (6) Obesity Status: Chronic (7) Debility Status: Chronic MAYDA SMITH MD Dec 15, 2022 16:28
== END 2022-12-15 15:50 | disposition home health service (06) | DRG 812 ==
LOC: 4TH 14:41
PROVIDERS: ADMIT Internal Medicine; ATTEND Internal Medicine
DX: D62 Acute posthemorrhagic anemia (principal); K92.1 Melena; I48.19 Other persistent atrial fibrillation; R54 Age-related physical debility; I27.81 Cor pulmonale (chronic); I11.0 Hypertensive heart disease with heart failure; I50.9 Heart failure, unspecified; G47.33 Obstructive sleep apnea (adult) (pediatric); Z91.199 Patient's noncompliance with other medical treatment and regimen due to unspecified reason; H54.7 Unspecified visual loss; J44.9 Chronic obstructive pulmonary disease, unspecified; I25.10 Atherosclerotic heart disease of native coronary artery without angina pectoris; E78.00 Pure hypercholesterolemia, unspecified; E11.40 Type 2 diabetes mellitus with diabetic neuropathy, unspecified; H91.90 Unspecified hearing loss, unspecified ear; F41.9 Anxiety disorder, unspecified; F32.A Depression, unspecified; I87.2 Venous insufficiency (chronic) (peripheral); Z79.4 Long term (current) use of insulin; Z87.891 Personal history of nicotine dependence
CPT/HCPCS: 36410; 36415; 76937; 80048; 81000; 82947; 85014; 85018; 85025; 86850; 86900; 86901; 86920; 87088; 93005

== ENCOUNTER → 2023-02-04 | Outpatient (CLI) | payer MEDICARE, MEDICAID ==
[~2023-02-04] MED LIST changes: +FAMO-356 PO; +FERR-84 PO; +INSU100V37 SQ
== END | disposition home or self-care (01) ==
LOC: PREOP 05:56
PROVIDERS: ATTEND Surgery
DX: Z01.818 Encounter for other preprocedural examination (principal)

== ENCOUNTER 2023-02-09 13:05 | Observation (INO) | payer MEDICARE, MEDICAID ==
[2023-02-09] VITALS (10 sets, daily range): BP systolic 121–153; BP diastolic 67–84
[~2023-02-09] VITALS: Ht 172.7 cm; Wt 102.9 kg
--- NOTE | 2023-02-09 13:46 | ED Respiratory ---
General Chief Complaint: Respiratory Problems Stated Complaint: RETAINING FLUID | DIFFICULTY BREATHING Nursing Triage Note: PT TO RM 3 BY WC WITH DAUGHTER WITH C/O SOB AND FLUID RETENTION. DAUGHTER STATES SHE HAS GAINED 23LBS IN THE LAST MONTH Source: patient, family Exam Limitations: no limitations (HERB BALL APRN) History of Present Illness Date Seen by Provider: Feb 09, 2023 Time Seen by Provider: 13:37 Initial Comments 87-year-old female presents to the ER with daughter for concerns of fluid overload. Daughter states patient has gained approximately 1 pound day for the last month. She complains of shortness of air. She wears 4 L at all times, currently 100% on 4 L. Daughter states that patient's shortness of air has progressively gotten worse with the weight gain, states it has gotten much worse over the last few days. She spoke with Dr. Figueroa last week who suggested she come be evaluated in the ER. She states that she was unable to get patient to the ER until today. Patient denies fevers, chest pain, abdominal pain, nausea, vomiting, diarrhea. Swelling is in her legs and her abdomen as well as her face. Patient reports significant shortness of air with ambulation, also reports difficulty walking due to her legs feeling heavy from the fluid overload. (HERB BALL APRN) Allergies and Home Medications Allergies Coded Allergies: No Known Drug Allergies (Unverified , 10/10/22) Patient Home Medication List Home Medication List Reviewed: Yes (HERB BALL APRN) Docusate Sodium (Colace) 100 Mg Capsule, 100 MG PO DAILY, (Reported) Entered as Reported by: HÉCTOR BERNAL on 02/09/23 1715 Last Action: New Order Escitalopram Oxalate (Escitalopram Oxalate) 20 Mg Tablet, 20 MG PO HS, (Reported) Entered as Reported by: SULEIMAN SANCHEZ on 12/11/17 1311 Last Action: Converted Famotidine (Acid [employer] Dean (FAMOTIDINE)) 20 Mg Tablet, 20 MG PO BID, (Reported) Entered as Reported by: LUCIE LOVING on 12/15/22 0957 Ferrous Sulfate (Iron) 325 Mg (65 Mg Iron) Tablet, 325 MG PO DAILY Prescribed by: MAYDA SMITH on 12/15/22 1402 Furosemide (Furosemide) 20 Mg Tablet, 40 MG PO 0800,1400, (Reported) Entered as Reported by: ANDRIA ROMERO on 07/06/18 1148 Last Action: Held Gabapentin (Gabapentin) 100 Mg Capsule, 100 MG PO TID, (Reported) Entered as Reported by: SOFIA FRANCISCO on 03/24/221533 Last Action: Continued Hydrocodone/Acetaminophen (Hydrocodone-Acetamin 10-325 mg) 10 Mg-325 Mg Tablet, 1-2 EACH PO Q6H PRN for PAIN-MODERATE (5-7), (Reported) Entered as Reported by: LUCIE LOVING on 12/15/22956 Last Action: Continued Insulin Aspart (Novolog Flexpen) 100 Unit/Ml (3 Ml) Solution, 4 UNITS SC AC, (Reported) Entered as Reported by: SFOIA FRANCISCO on 03/24/221533 Last Action: Held Insulin Aspart (Novolog Flexpen) 100 Unit/Ml (3 Ml) Solution, UNITS SQ SLIDING/SCALE, (Reported) Entered as Reported by: SOFIA FRANCISCO on 03/24/221533 Last Action: Reviewed Insulin Degludec (Tresiba) 100 Unit/Ml Vial, 20 UNIT SQ HS, (Reported) Entered as Reported by: LUCIE LOVING on 12/15/22956 Last Action: Converted Omeprazole (Omeprazole) 40 Mg Capsule.dr, 40 MG PO DAILY, (Reported) Entered as Reported by: SOFIA FRANCISCO on 06/27/221453 Last Action: Converted Polyethylene Glycol 3350 (Miralax) 17 Gram Powd.pack, 17 GM PO DAILY PRN for CONSTIPATION-2ND LINE, (Reported) Entered as Reported by: Kelly Weller on 10/10/22 0740 Last Action: Continued Potassium Chloride (Potassium Chloride) 10 Meq Tab.er.prt, 20 MEQ PO 0800,1400, (Reported) Entered as Reported by: SOFIA FRANCISCO on 03/24/221533 Last Action: Edited Ropinirole HCl (Ropinirole HCl) 0.25 Mg Tablet, 0.25 MG PO HS, (Reported) Entered as Reported by: SOFIA FRANCISCO on 06/27/221453 Last Action: Continued Simvastatin (Simvastatin) 20 Mg Tablet, 20 MG PO HS, (Reported) Entered as Reported by: EDWIN ANGELA on 09/11/162022 Last Action: Converted Review of Systems Review of Systems Constitutional: see HPI (HERB BALL APRN) Past Bcbgpmo-Goigwp-Dbmpku Hx Patient Social History Tobacco Use?: No Smoking Status: Former Smoker Use of E-Cig and/or Vaping dev: No Substance use?: No Alcohol Use?: No Pt feels they are or have been: No (HERB BALL APRN) Immunizations Up To Date Tetanus Booster (TDap): More than 5yrs Influenza Vaccine Up-to-Date: No; Not Current First/Initial COVID19 Vaccinat: AUGUST 2020 Second COVID19 Vaccination Sacha: SEPTEMBER 2020 Third COVID19 Vaccination Date: NONE (HERB BALL APRN) Seasonal Allergies Seasonal Allergies: No (HERB BALL APRN) Past Medical History Surgery/Hospitalization HX: IDDM, CHF, COPD BILAT HIPS, TOTAL HYSTER Surgeries: Yes (bilat hip replacement;wrist surgery;port/REMOVAL;brain aneurysm removed;CAT) Appendectomy, Eye Surgery, Hysterectomy, Joint Replacement, Neurological, Oophorectomy, Orthopedic, Urinary Diversion Respiratory: Yes (O2 3 lpm NC continuous) COPD Currently Using CPAP: No Currently Using BIPAP: No Cardiac: Yes (RBBB) Atrial Fibrillation, Chronic Edema/Swelling, Coronary Artery Disease, High Cholesterol, Hypertension Neurological: Yes (CEREBRAL ANEURYSM WITH SURGERY) Neuropathy, Stroke, TIA, Vertigo 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 Disorders: No Female 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 Disorders: Menstrual Problems, Ovarian Cyst [employer]OL[employer] History: Hysterectomy, Menopausal Sexually Transmitted Disease: No HIV/AIDS: No Genitourinary: Yes (CHRONIC RENAL FAILURE/INSUFF. --NO DIALYSIS) Renal Failure, UTI-Chronic Gastrointestinal: Yes (LOWER GI BLEED WHEN ON ELIQUIS) Gastroesophageal Reflux, Gastrointestinal Bleed, Chronic Constipation, Diverticulosis, Polyps, Hiatal Hernia, Gall Bladder Disease Musculoskeletal: Yes Degenerate Disk Disease, Arthritis, Chronic Back Pain, Fractures Endocrine: Yes Diabetes, Insulin dep HEENT: Yes (GLASSES, DENTURES) Cataract Loss of Vision: Denies Hearing Impairment: Hard of Hearing Cancer: No Psychosocial: Yes Anxiety, Depression Integumentary: No Blood Disorders: Yes (ANEMIA) Adverse Reaction/Blood Tranf: No (RECEIVED 3 UNITS EARLY 2022 - NO ADVERSE REACTIONS) (HERB BALL APRN) Family Medical History Myocardial infarction 19 MOTHER Heart Disease, Hypertension SOCIAL HISTORY: -SMOKED IN PAST, QUIT 1984 -ETOH--OCCASIONAL USE IN PAST, NONE FOR YEARS -DRUGS--DENIES USE PAST SURGICAL HISTORY: -BILATERAL CATARACTS 01/2019 -PORT PLACED/LATER REMOVED -BILATERAL KNEE REPLACEMENTS -RIGHT KNEE SCOPE/TORN MENISCUS 11/16/[address] BAILEY. -BILATERAL WRIST SURGERY -SURGERY FOR BRAIN ANEURYSM -COLONOSCOPIES/POLYPECTOMIES -EGD'S -APPENDECTOMY -HYSTERECTOMY/BILATERAL SALPINGO-OOPHORECTOMY -BLADDER SURGERY -CARDIAC CATH-NO INTERVENTION (HERB BALL APRN) Physical Exam Vital Signs - First Documented 02/09/23 02/09/23 13:10 13:13 Temp 37.1 Pulse 84 Resp 22 B/P (MAP) 141/83 (102) Pulse Ox 93 O2 Delivery Nasal Cannula O2 Flow Rate 4.00 (JEREMIAH CUENCA MD) Capillary Refill : (HERB BALL APRN) Height: 5'8.00" Weight: 212lbs. 7.0oz. [id number]; 34.00 BMI Method:Stated General Appearance: WD/WN, no apparent distress Neck: supple, normal inspection Respiratory: no respiratory distress, no accessory muscle use, decreased breath sounds Cardiovascular: regular rate, rhythm Extremities: pedal edema Neurologic/Psychiatric: alert, normal mood/affect Skin: normal color, warm/dry (HERB BALL APRN) Progress/Results/Core Measures Suspected Sepsis SIRS Temperature: Pulse: 84 Respiratory Rate: 22 Laboratory Tests 02/09/23 13:20: White Blood Count 6.6 Blood Pressure 141 /83 Mean: 102 Laboratory Tests 02/09/23 13:20: Creatinine 1.07, Platelet Count 258, Total Bilirubin 0.4 (HERB BALL APRN) Results/Orders Lab Results Laboratory Tests Test 02/09/23 13:20 Range/Units White Blood Count 6.6 4.3-11.0 10^3/uL Red Blood Count 3.37 L 3.80-5.11 10^6/uL Hemoglobin 9.0 L 11.5-16.0 g/dL Hematocrit 32 L 35-52 % Mean Corpuscular Volume 94 80-99 fL Mean Corpuscular Hemoglobin 27 25-34 pg Mean Corpuscular Hemoglobin Concent 28 L 32-36 g/dL Red Cell Distribution Width 19.3 H 10.0-14.5 % Platelet Count 258 130-400 10^3/uL Mean Platelet Volume 10.3 9.0-12.2 fL Immature Granulocyte % (Auto) 0 % Neutrophils (%) (Auto) 74 42-75 % Lymphocytes (%) (Auto) 13 12-44 % Monocytes (%) (Auto) 10 0-12 % Eosinophils (%) (Auto) 2 0-10 % Basophils (%) (Auto) 0 0-10 % Neutrophils # (Auto) 4.9 1.8-7.8 10^3/uL Lymphocytes # (Auto) 0.9 L 1.0-4.0 10^3/uL Monocytes # (Auto) 0.7 0.0-1.0 10^3/uL Eosinophils # (Auto) 0.2 0.0-0.3 10^3/uL Basophils # (Auto) 0.0 0.0-0.1 10^3/uL Immature Granulocyte # (Auto) 0.0 0.0-0.1 10^3/uL Sodium Level 140 135-145 MMOL/L Potassium Level 3.9 3.6-5.0 MMOL/L Chloride Level 101 98-107 MMOL/L Carbon Dioxide Level 30 21-32 MMOL/L Anion Gap 9 5-14 MMOL/L Blood Urea Nitrogen 16 7-18 MG/DL Creatinine 1.07 0.60-1.30 MG/DL Estimat Glomerular Filtration Rate 51 BUN/Creatinine Ratio 15 Glucose Level 132 H 70-105 MG/DL Calcium Level 9.0 8.5-10.1 MG/DL Corrected Calcium 9.4 8.5-10.1 MG/DL Magnesium Level 2.4 1.6-2.4 MG/DL Total Bilirubin 0.4 0.1-1.0 MG/DL Aspartate Amino Transf (AST/SGOT) 17 5-34 U/L Alanine Aminotransferase (ALT/SGPT) 8 0-55 U/L Alkaline Phosphatase 125 40-136 U/L B-Type Natriuretic Peptide 288.3 H <100.0 PG/ML Total Protein 7.4 6.4-8.2 GM/DL Albumin 3.5 3.2-4.5 GM/DL (JEREMIAH CUENCA MD) Vital Signs/I&O 02/09/23 02/09/23 02/09/23 13:10 13:13 13:24 Temp 37.1 Pulse 84 Resp 22 B/P (MAP) 141/83 (102) Pulse Ox 93 O2 Delivery Nasal Cannula Nasal Cannula Nasal Cannula O2 Flow Rate 4.00 4.00 4.00 (JEREMIAH CUENCA MD) Vital Signs/I&O Capillary Refill : (HERB BALL APRN) Blood Pressure Mean: 102 Progress Note : Progress Note Patient seen and evaluated, resting comfortably in bed, no acute distress. Based on exam and symptoms, concerned for CHF exacerbation. Workup initiated including CBC, CMP, magnesium, BNP, chest x-ray, EKG. 1537 Labs and chest x-ray reviewed. CBC shows chronic anemia, hemoglobin 9.0, hematocrit 32, these are similar to previous. CBC grossly normal. BNP elevated 288. Previous BNP was 354 which was in March 2022. Chest x-ray shows cardiomegaly with sequela of CHF including probable interstitial pulmonary edema. EKG shows rate controlled atrial fibrillation with right bundle aquiles block. This EKG from December did not show atrial fibrillation or the right bundle branch block, but EKG from March 2022 did show the atrial fibrillation and the right bundle branch block. She reports history of atrial fibrillation. Results discussed with patient. I discussed with patient the options of giving her a dose of IV Lasix here and discharging her with an increase in her Lasix. Patient states that she would rather stay in the hospital, because she has significant shortness of breath and difficulty walking due to the swelling. I called and spoke with Dr. Vann regarding patient. He suggests giving Lasix 40 mg IV twice daily and started patient on Eliquis 2.5 twice daily if the hospitalist agrees. Patient was on Eliquis previously for atrial fibrillation, but had to stop due to a GI bleed. He also wants patient to have potassium. Called spoke with Dr. Cuevas, hospitalist, regarding patient. She agrees to admit patient. She would like patient to be admitted as observation to the cardiac stepdown unit. She will place admission orders. (HERB BALL APRN) ECG Initial ECG Impression Date: Feb 09, 2023 Initial ECG Impression Time: 13:48 Initial ECG Rate: 87 Initial ECG Rhythm: A Fib/Flutter Initial ECG Intervals: QRS (162) Initial ECG Intervals QRS 162, QTc 551 Initial ECG Impression: Nonspecific Changes Initial ECG Comparisson: Changed Comment Previous EKG in December of this year did not show atrial fibrillation or right bundle branch block which was present on this EKG. EKG from March of this year, did show the atrial fibrillation and the right bundle branch block. EKG : EKG Time: 15:10 Rate: 89 Rhythm: A Fib/Flutter Intervals: QRS (146), QT (459) Intervals QTc 559 ECG Comparisson: Unchanged ECG Impression: Nonspecific Changes (HERB BALL APRN) Diagnostic Imaging Diagonstic Imaging: Xray Plain Films/CT/US/NM/MRI: chest Comments [facility], [place] NAME: DARCI PISANO [facility] REC#: [id number] PT STATUS: ADM Ceferino : 1935 PHYSICIAN: HERB BALL APRN ADMIT DATE: 02/09/23/[facility] Signed Date of Exam:02/09/23 CHEST 1 VIEW, AP/PA ONLY INDICATION: Shortness of air. Fluid retention. COMPARISON: 03/22/2022. FINDINGS: Single frontal radiographic view of the chest was obtained and demonstrates pronounced cardiomegaly. There is also moderate pulmonary vascular congestion and mild diffuse prominence of the interstitium. No large effusion or pneumothorax is seen. Osseous structures show no acute abnormalities. IMPRESSION: 1. Cardiomegaly with sequela of CHF including probable interstitial pulmonary edema. Dictated by: Dictated on workstation # [id number] Dict: 02/09/23 1421 Trans: 02/09/23 1644 [id number] Interpreted by: JOSE MANUEL ROLLINS MD Electronically signed by: JOSE MANUEL ROLLINS MD 02/09/23 1644 (HERB BALL APRN) Departure Communication (Admissions) Time/Spoke to Admitting Phy: 15:37 Dr. Cuevas, hospitalist, see progress note. Time/Spoke to Consulting Phy: 15:24 Dr. Vann, cardiology, see progress note. (HERB BALL APRN) Impression Primary Impression: CHF (congestive heart failure) Disposition: 09 ADMITTED INPATIENT Condition: Stable Admissions Decision to Admit Reason: Admit from ER (General) Decision to Admit/Date: Feb 09, 2023 Time/Decision to Admit Time: 15:24 (HERB BALL APRN) Departure-Patient Inst. Referrals: DEANGELO FIGUEROA MD (PCP/Family) Primary Care Physician ATTENDING PHYSICIAN NOTE: I was physically present as attending physician in the emergency department during the care of this patient, but I was not directly involved in the decision making or delivery of care for this patient. (JEREMIAH CUENCA MD) HERB BALL APRN Feb 09, 2023 13:46 JEREMIAH CUENCA MD Feb 10, 2023 13:41
[2023-02-09 13:51] LABS: BASOPHILS % (AUTO) 0 % (0-10); EOSINOPHILS # (AUTO) 0.2 10^3/uL (0.0-0.3); EOSINOPHILS % (AUTO) 2 % (0-10); HEMATOCRIT 32 % (35-52); LYMPHOCYTES # (AUTO) 0.9 10^3/uL (1.0-4.0); LYMPHOCYTES % (AUTO) 13 % (12-44); MEAN CORPUSCULAR HEMOGLOBIN 27 pg (25-34); MEAN CORPUSCULAR HGB CONC 28 g/dL (32-36); MEAN CORPUSCULAR VOLUME 94 fL (80-99); MEAN PLATELET VOLUME 10.3 fL (9.0-12.2); MONOCYTES # (AUTO) 0.7 10^3/uL (0.0-1.0); MONOCYTES % (AUTO) 10 % (0-12); NEUTROPHILS # (AUTO) 4.9 10^3/uL (1.8-7.8); NEUTROPHILS % (AUTO) 74 % (42-75); PLATELET COUNT 258 10^3/uL (130-400); WHITE BLOOD COUNT 6.6 10^3/uL (4.3-11.0)
[2023-02-09 14:08] LABS: ALBUMIN 3.5 GM/DL (3.2-4.5); POTASSIUM 3.9 MMOL/L (3.6-5.0)
[2023-02-09 14:10] LABS: TOTAL PROTEIN 7.4 GM/DL (6.4-8.2)
[2023-02-09 14:12] LABS: BILIRUBIN,TOTAL 0.4 MG/DL (0.1-1.0)
[2023-02-09 14:14] LABS: CREATININE SERUM 1.07 MG/DL (0.60-1.30)
[2023-02-09 14:17] LABS: MAGNESIUM 2.4 MG/DL (1.6-2.4)
--- NOTE | 2023-02-09 14:26 | Diagnostic Imaging Report ---
INDICATION: Shortness of air. Fluid retention. COMPARISON: 03/22/2022. FINDINGS: Single frontal radiographic view of the chest was obtained and demonstrates pronounced cardiomegaly. There is also moderate pulmonary vascular congestion and mild diffuse prominence of the interstitium. No large effusion or pneumothorax is seen. Osseous structures show no acute abnormalities. IMPRESSION: 1. Cardiomegaly with sequela of CHF including probable interstitial pulmonary edema. Dictated by: Dictated on workstation # [id number]
[2023-02-09] MEDS ORDERED: FUROSEMIDE INJECTION 40 MG/4 ML VIAL IVP ONE (15:45)
--- NOTE | 2023-02-09 16:19 | Consultation-Cardiology ---
HPI-Cardiology Cardiology Consultation: Date of Consultation 02/09/23 Time Seen by a Provider: 16:25 Date of Admission 02-09-23 Attending Physician Amber Figueroa MD Admitting Physician Admitting Physician: Attending Physician: Consulting Physician Percy Vann MD HPI: Chief Complaint: Dyspnea Ms. Pisano is an 87 yr old female being admitted d/t increasing SOB. Her daughter is with her. She reports approx 23 lb weight gain over the last month. She states she has increased abd distension and LE swelling. No c/o CP. She reports orthopnea and has not been sleeping well. No c/o n/v/d. No c/o fever or chills. Review of Systems-Cardiology Review of Systems Constitutional: No chills, No fever; malaise Eyes: No vision change Ears/Nose/Throat: epistaxis (this morning); No recent hearing loss Respiratory: As described under HPI Cardiovascular: As described under HPI Gastrointestinal: constipation; No diarrhea, No nausea, No vomiting Genitourinary: No dysuria Musculoskeletal: no symptoms reported Skin: No rash on exposed areas, No ulcerations on exposed areas Psychiatric/Neurological: No anxiety, No depression, No seizure, No focal weakness, No syncope Hematologic: No bleeding abnormalities NIM-Sapudi-Uyxzry Hx Patient Social History Smoking Status: Former Smoker 2nd Hand Smoke Exposure: No Alcohol Use?: No Pt feels they are or have been: No Immunizations Up To Date Tetanus Booster (TDap): More than 5yrs Date of Pneumonia Vaccine: Aug 08, 2019 Date of Influenza Vaccine: Dec 19, 2021 Past Medical History PMH As described under Assessment. Family Medical History Family Medical History: Reported family h/o mother having CAD with an TX. Family History: Myocardial infarction 19 MOTHER Allergies and Home Medications Allergies Coded Allergies: No Known Drug Allergies (Unverified , 10/10/22) Patient Home Medication List Docusate Sodium (Colace) 100 Mg Capsule, 100 MG PO DAILY, (Reported) Entered as Reported by: HÉCTOR BERNAL on 02/09/23 1715 Last Action: New Order Escitalopram Oxalate (Escitalopram Oxalate) 20 Mg Tablet, 20 MG PO HS, (Reported) Entered as Reported by: SULEIMAN SANCHEZ on 12/11/17 1311 Last Action: Reviewed Famotidine (Acid Glue Reel Operator (FAMOTIDINE)) 20 Mg Tablet, 20 MG PO BID, (Reported) Entered as Reported by: LUCIE LOVING on 12/15/22956 Ferrous Sulfate (Iron) 325 Mg (65 Mg Iron) Tablet, 325 MG PO DAILY Prescribed by: MAYDA SMITH on 12/15/22 1402 Furosemide (Furosemide) 20 Mg Tablet, 40 MG PO 0800,1400, (Reported) Entered as Reported by: ANDRIA ROMERO on 07/06/18 1148 Last Action: Reviewed Gabapentin (Gabapentin) 100 Mg Capsule, 100 MG PO TID, (Reported) Entered as Reported by: SOFIA FRANCISCO on 03/24/221533 Last Action: Reviewed Hydrocodone/Acetaminophen (Hydrocodone-Acetamin 10-325 mg) 10 Mg-325 Mg Tablet, 1-2 EACH PO Q6H PRN for PAIN-MODERATE (5-7), (Reported) Entered as Reported by: LUCIE LOVING on 12/15/22956 Last Action: Reviewed Insulin Aspart (Novolog Flexpen) 100 Unit/Ml (3 Ml) Solution, 4 UNITS SC AC, (Reported) Entered as Reported by: SOFIA FRANCISCO on 03/24/221533 Insulin Aspart (Novolog Flexpen) 100 Unit/Ml (3 Ml) Solution, UNITS SQ SLIDING/SCALE, (Reported) Entered as Reported by: SOFIA FRANCISCO on 03/24/221533 Last Action: Reviewed Insulin Degludec (Tresiba) 100 Unit/Ml Vial, 20 UNIT SQ HS, (Reported) Entered as Reported by: LUCIE LOVING on 12/15/22956 Last Action: Reviewed Omeprazole (Omeprazole) 40 Mg Capsule.dr, 40 MG PO DAILY, (Reported) Entered as Reported by: SOFIA FRANCISCO on 06/27/22 0013 Last Action: Reviewed Polyethylene Glycol 3350 (Miralax) 17 Gram Powd.pack, 17 GM PO DAILY PRN for CONSTIPATION-2ND LINE, (Reported) Entered as Reported by: Kelly Weller on 10/10/22 0740 Last Action: Reviewed Potassium Chloride (Potassium Chloride) 10 Meq Tab.er.prt, 20 MEQ PO 0800,1400, (Reported) Entered as Reported by: SOFIA FRANCISCO on 03/24/221533 Last Action: Edited Ropinirole HCl (Ropinirole HCl) 0.25 Mg Tablet, 0.25 MG PO HS, (Reported) Entered as Reported by: SOFIA FRANCISCO on 06/27/22 2056 Last Action: Continued Simvastatin (Simvastatin) 20 Mg Tablet, 20 MG PO HS, (Reported) Entered as Reported by: EDWIN ANGELA on 09/11/162022 Last Action: Reviewed Physical Exam-Cardiology Physical Exam Vital Signs/I&O 02/09/23 02/09/23 02/10/23 02/10/23 21:44 23:30 00:00 01:00 Pulse 96 92 93 Resp 17 14 B/P (MAP) 127/70 (83) Pulse Ox 95 97 96 O2 Delivery Nasal Cannula Nasal Cannula Nasal Cannula O2 Flow Rate 4.00 4.00 4.00 02/10/23 02/10/23 02/10/23 03:39 04:50 07:00 Temp 36.4 Pulse 87 90 Resp 15 B/P (MAP) 109/65 (80) Pulse Ox 99 O2 Delivery Nasal Cannula O2 Flow Rate 4.00 02/10/23 00:00 Intake Total 600 ml Output Total 2175 ml Balance -1575 ml Capillary Refill : Constitutional: AAO x 3, well-developed, well-nourished HEENT: PERRL, hearing is well preserved, oral hygience is good Neck: No carotid bruit; carotid pulses are 2 + bilaterally Respiratory: No accessory muscle use, No respiratory distress; chest expansion is symmetric, chest is bilaterally symmetric, other (diminished breath sounds) Cardiovascular: irregularly irregular; No JVD; S1 and S2 Gastrointestinal: No tender; soft, round; No guarding; audible bowel sounds Extremities: other (bilat LE swelling, pitting ) Neurologic/Psychiatric: other (moves all extremities) Skin: No rash on exposed areas, No ulcerations on exposed areas Data Review Labs Laboratory Tests 02/09/23 13:20: White Blood Count 6.6, Red Blood Count 3.37L, Hemoglobin 9.0L, Hematocrit 32L, Mean Corpuscular Volume 94, Mean Corpuscular Hemoglobin 27, Mean Corpuscular Hemoglobin Concent 28L, Red Cell Distribution Width 19.3H, Platelet Count 258, Mean Platelet Volume 10.3, Immature Granulocyte % (Auto) 0, Neutrophils (%) (Auto) 74, Lymphocytes (%) (Auto) 13, Monocytes (%) (Auto) 10, Eosinophils (%) (Auto) 2, Basophils (%) (Auto) 0, Neutrophils # (Auto) 4.9, Lymphocytes # (Auto) 0.9L, Monocytes # (Auto) 0.7, Eosinophils # (Auto) 0.2, Basophils # (Auto) 0.0, Immature Granulocyte # (Auto) 0.0, Sodium Level 140, Potassium Level 3.9, Chloride Level 101, Carbon Dioxide Level 30, Anion Gap 9, Blood Urea Nitrogen 16, Creatinine 1.07, Estimat Glomerular Filtration Rate 51, BUN/Creatinine Ratio 15, Glucose Level 132H, Calcium Level 9.0, Corrected Calcium 9.4, Magnesium Level 2.4, Total Bilirubin 0.4, Aspartate Amino Transf (AST/SGOT) 17, Alanine Aminotransferase (ALT/SGPT) 8, Alkaline Phosphatase 125, B-Type Natriuretic Peptide 288.3H, Total Protein 7.4, Albumin 3.5 02/09/23 20:58: Glucometer 130H 02/10/23 04:42: White Blood Count 5.9, Red Blood Count 3.10L, Hemoglobin 8.2L, Hematocrit 29L, Mean Corpuscular Volume 92, Mean Corpuscular Hemoglobin 27, Mean Corpuscular Hemoglobin Concent 29L, Red Cell Distribution Width 19.3H, Platelet Count 239, Mean Platelet Volume 10.2, Immature Granulocyte % (Auto) 0, Neutrophils (%) (Auto) 68, Lymphocytes (%) (Auto) 18, Monocytes (%) (Auto) 11, Eosinophils (%) (Auto) 2, Basophils (%) (Auto) 1, Neutrophils # (Auto) 4.0, Lymphocytes # (Auto) 1.1, Monocytes # (Auto) 0.7, Eosinophils # (Auto) 0.1, Basophils # (Auto) 0.0, Immature Granulocyte # (Auto) 0.0, Sodium Level 141, Potassium Level 3.7, Chloride Level 101, Carbon Dioxide Level 32, Anion Gap 8, Blood Urea Nitrogen 16, Creatinine 1.09, Estimat Glomerular Filtration Rate 50, BUN/Creatinine Ratio 15, Glucose Level 153H, Calcium Level 8.6, Corrected Calcium 9.2, Magnesium Level 2.3, Total Bilirubin 0.3, Aspartate Amino Transf (AST/SGOT) 14, Alanine Aminotransferase (ALT/SGPT) 8, Alkaline Phosphatase 121, Total Protein 6.8, Albumin 3.2 Radiology NAME: DARCI PISANO [facility] REC#: [id number] PT STATUS: REG ER : 1935 PHYSICIAN: HERB BALL APRN ADMIT DATE: 02/09/23/ER Draft Date of Exam:02/09/23 CHEST 1 VIEW, AP/PA ONLY INDICATION: Shortness of air. Fluid retention. COMPARISON: 03/22/2022. FINDINGS: Single frontal radiographic view of the chest was obtained and demonstrates pronounced cardiomegaly. There is also moderate pulmonary vascular congestion and mild diffuse prominence of the interstitium. No large effusion or pneumothorax is seen. Osseous structures show no acute abnormalities. IMPRESSION: 1. Cardiomegaly with sequela of CHF including probable interstitial pulmonary edema. Dictated on workstation # [id number] Dict: 02/09/23 1421 Trans: 02/09/23 1426 [id number] Interpreted by: JOSE MANUEL ROLLINS MD Electronically signed by: ECG Impression ECG Initial ECG Impression: Atrial Fibrillation A/P-Cardiology Assessment/Admission Diagnosis Acute on chronic systolic CHF H/O ac resp failure, multifactorial: acute on ch CHF & cor pulmonale, marked anemia, probable obesity-hypovent/GER in November 2022 - for which she had a prolonged hospitalization at [facility] in [place], [place] Chronic CHF and cor pulmonale - 2D Echo done 01/27/[address] Barker showing mild diffuse hypokinesia with EF 45%. Dilated right and left atrium, moderate MR, severe TR. PA 75-80mmHg. Severe pulmonary hypertension with dilated right heart chambers. - Echocardiogram at [facility] by Dr. Corona is reported to show severe TR with elevated PASP (report not available) Recurrent marked anemia (during hospitalization at [facility]) - Endoscopy of 03-25-[address] Manning showed Reflux esophagitis Wagoner grade B, moderate size hiatal hernia approximately 3 cm in size. Moderate gastritis. No active bleeding. Chronic between stage II to III external and internal hemorrhoids, moderate sigmoid diverticulosis. Again, no active bleed. Small hyperplastic polyp of the ascending colon. - recurrent GI bleed suspected - anemia is being managed by PCP Paroxysmal atrial fibrillation (currently a-fib with controlled rate) - twelve-lead EKG was done showing atrial fibrillation with right bundle branch block. - [id number] score 4, yearly risk of stroke without oral anticoagulation is 4%. - Previously on Eliquis 5mg BID for stroke prophylaxis (currently being held d/t marked anemia and suspected GI bleed requiring transfusion at [facility]) Pulmonary HTN - likely d/t obesity hypoventilation syndrome/GER GER - non-compliant with CPAP tx Generalized weakness - continue PT/OT Hypertension - controlled Hyperlipidemia - maintained on statin CKD 3a - monitored and managed [place] [facility] [place] management per Medical services Peripheral neuropathy Chronic pain syndrome Discussion and Recomendations Acute on chronic systolic CHF - treat with diuretics - monitor lab closely - Echocardiogram in the morning H/O PAF - unable to tolerate OAC for reasons noted above in assessment - continue rate controlling agents Monitor lab closely - replace electrolytes as indicated Further recs will be bsed on her hospital course We would like to thank medical services for this consult SB REDDY Feb 09, 2023 16:19
[2023-02-09] MEDS ORDERED: ONDANSETRON 4 MG ORAL DISSOLVE TABLET PO PRN (17:00)
[2023-02-09] MEDS ORDERED: CALCIUM CARBONATE 500 MG CHEW TABLET PO PRN (17:00)
[2023-02-09] MEDS ORDERED: ONDANSETRON INJECTION 4 MG/2 ML (SDV) IV PRN (17:00)
[2023-02-09] MEDS ORDERED: diphenhydrAMINE INJ 50 MG/ML VIAL IVP PRN (17:00)
[2023-02-09] MEDS ORDERED: BISACODYL 10 MG SUPPOSITORY PR PRN (17:00)
[2023-02-09] MEDS ORDERED: LACTULOSE SYRUP 10GM/15ML 30ML UDC PO PRN (17:00)
[2023-02-09] MEDS ORDERED: FUROSEMIDE INJECTION 40 MG/4 ML VIAL IVP SCH (17:00)
[2023-02-09] MEDS ORDERED: HYDROmorphone INJECTION 2 MG/ML VIAL IV PRN (17:00)
[2023-02-09] MEDS ORDERED: diphenhydrAMINE 25 MG TABLET PO PRN (17:00)
[2023-02-09] MEDS ORDERED: ACETAMINOPHEN 325 MG TABLET PO PRN (17:00)
[2023-02-09] MEDS ORDERED: MILK OF MAGNESIA 400 MG/5 ML 30 ML UDC PO PRN (17:00)
[2023-02-09] MEDS ORDERED: MELATONIN 3 MG TABLET PO PRN (17:00)
[2023-02-09] MEDS ORDERED: ANTACID SUSPENSION 30 ML UDC PO PRN (17:00)
[2023-02-09] MEDS ORDERED: DOCU-143 PO (17:15)
[2023-02-09] MEDS ORDERED: FLU HIGH DOSE (65+ YOA) 240 MCG/0.7 ML 2023-24 (FLUZONE) IM ONE (17:30)
[2023-02-09] MEDS ORDERED: RT-Ipratropium/Albuterol NEB 3 ML VIAL INH PRN (17:30)
--- NOTE | 2023-02-09 18:32 | Consultation-Cardiology ---
HPI-Cardiology Cardiology Consultation: Date of Consultation 02/09/23 Time Seen by a Provider: 17:45 Date of Admission Attending Physician Amber Figueroa MD Admitting Physician Admitting Physician: Fany Cuevas DO Attending Physician: Fany Cuevas DO Consulting Physician HARITHA ESPARZA MD, MA, FACP, FACC, FSCAI, CCDS HPI: Chief Complaint: Dyspnea Ms. Zaidi is an 87 yr old female being admitted d/t increasing SOB. Her daughter is with her. She reports approx 23 lb weight gain over the last month. She states she has increased abd distension and LE swelling. No c/o CP. She reports orthopnea and has not been sleeping well. No c/o n/v/d. No c/o fever or chills. Review of Systems-Cardiology Review of Systems Constitutional: No chills, No fever; malaise Eyes: No vision change Ears/Nose/Throat: epistaxis (this morning); No recent hearing loss Respiratory: As described under HPI Cardiovascular: As described under HPI Gastrointestinal: constipation; No diarrhea, No nausea, No vomiting Genitourinary: No dysuria Musculoskeletal: no symptoms reported Skin: No rash on exposed areas, No ulcerations on exposed areas Psychiatric/Neurological: No anxiety, No depression, No seizure, No focal weakness, No syncope Hematologic: No bleeding abnormalities WCP-Fqjowc-Rjoidj Hx Patient Social History Smoking Status: Former Smoker 2nd Hand Smoke Exposure: No Alcohol Use?: No Pt feels they are or have been: No Immunizations Up To Date Tetanus Booster (TDap): More than 5yrs Date of Pneumonia Vaccine: Aug 08, 2019 Date of Influenza Vaccine: Dec 19, 2021 Past Medical History PMH As described under Assessment. Family Medical History Family Medical History: Reported family h/o mother having CAD with an MT. Family History: Myocardial infarction 19 MOTHER Allergies and Home Medications Allergies Coded Allergies: No Known Drug Allergies (Unverified , 10/10/22) Patient Home Medication List Home Medication List Reviewed: Yes Docusate Sodium (Colace) 100 Mg Capsule, 100 MG PO DAILY, (Reported) Entered as Reported by: HÉCTOR BERNAL on 02/09/23 1715 Last Action: New Order Escitalopram Oxalate (Escitalopram Oxalate) 20 Mg Tablet, 20 MG PO HS, (Reported) Entered as Reported by: SULEIMAN SANCHEZ on 12/11/17 1311 Last Action: Reviewed Famotidine (Acid Building Pressure Washer (FAMOTIDINE)) 20 Mg Tablet, 20 MG PO BID, (Reported) Entered as Reported by: LUCIE LOVING on 12/15/22956 Ferrous Sulfate (Iron) 325 Mg (65 Mg Iron) Tablet, 325 MG PO DAILY Prescribed by: MAYDA SMITH on 12/15/22 1402 Furosemide (Furosemide) 20 Mg Tablet, 40 MG PO 0800,1400, (Reported) Entered as Reported by: ANDRIA ROMERO on 07/06/18 1148 Last Action: Reviewed Gabapentin (Gabapentin) 100 Mg Capsule, 100 MG PO TID, (Reported) Entered as Reported by: SOFIA FRANCISCO on 03/24/221533 Last Action: Reviewed Hydrocodone/Acetaminophen (Hydrocodone-Acetamin 10-325 mg) 10 Mg-325 Mg Tablet, 1-2 EACH PO Q6H PRN for PAIN-MODERATE (5-7), (Reported) Entered as Reported by: LUCIE LOVING on 12/15/22956 Last Action: Reviewed Insulin Aspart (Novolog Flexpen) 100 Unit/Ml (3 Ml) Solution, 4 UNITS SC AC, (Reported) Entered as Reported by: SOFIA FRANCISCO on 03/24/221533 Insulin Aspart (Novolog Flexpen) 100 Unit/Ml (3 Ml) Solution, UNITS SQ SLIDING/ SCALE, (Reported) Entered as Reported by: SOFIA FRANCISCO on 03/24/221533 Last Action: Reviewed Insulin Degludec (Tresiba) 100 Unit/Ml Vial, 20 UNIT SQ HS, (Reported) Entered as Reported by: LUCIE LOVING on 12/15/22956 Last Action: Reviewed Omeprazole (Omeprazole) 40 Mg Capsule.dr, 40 MG PO DAILY, (Reported) Entered as Reported by: SOFIA FRANCISCO on 06/27/22 7539 Last Action: Reviewed Polyethylene Glycol 3350 (Miralax) 17 Gram Powd.pack, 17 GM PO DAILY PRN for CONSTIPATION-2ND LINE, (Reported) Entered as Reported by: Kelly Weller on 10/10/22 0740 Last Action: Reviewed Potassium Chloride (Potassium Chloride) 10 Meq Tab.er.prt, 20 MEQ PO 0800,1400, (Reported) Entered as Reported by: SOFIA FRANCISCO on 03/24/22 1534 Last Action: Edited Ropinirole HCl (Ropinirole HCl) 0.25 Mg Tablet, 0.25 MG PO HS, (Reported) Entered as Reported by: SOFIA FRANCISCO on 06/27/22 1454 Last Action: Continued Simvastatin (Simvastatin) 20 Mg Tablet, 20 MG PO HS, (Reported) Entered as Reported by: EDWIN ANGELA on 09/11/162022 Last Action: Reviewed Physical Exam-Cardiology Physical Exam Vital Signs/I&O 02/09/23 02/09/23 02/09/23 02/09/23 13:10 13:13 13:24 16:27 Temp 37.1 Pulse 84 83 Resp 22 B/P (MAP) 141/83 (102) 123/75 Pulse Ox 93 100 O2 Delivery Nasal Cannula Nasal Cannula Nasal Cannula Nasal Cannula O2 Flow Rate 4.00 4.00 4.00 4.00 02/09/23 02/09/23 02/09/23 02/09/23 16:30 16:45 16:45 17:00 Pulse 92 82 78 78 Resp 15 15 B/P (MAP) 132/77 (95) 143/77 (99) 129/67 (87) Pulse Ox 98 98 99 O2 Delivery Nasal Cannula Nasal Cannula Nasal Cannula O2 Flow Rate 4.00 4.00 4.00 02/09/23 02/09/23 02/09/23 02/09/23 17:11 17:15 17:30 17:45 Temp 37.1 Pulse 82 81 111 85 Resp 18 21 17 B/P (MAP) 133/73 (93) 153/84 (107) 127/70 (89) Pulse Ox 98 97 100 98 O2 Delivery Nasal Cannula Nasal Cannula Nasal Cannula O2 Flow Rate 4.00 4.00 4.00 FiO2 36 02/09/23 18:00 Pulse 86 Resp 15 B/P (MAP) 134/71 (92) Pulse Ox 100 O2 Delivery Nasal Cannula O2 Flow Rate 4.00 Capillary Refill : Constitutional: AAO x 3, well-developed, well-nourished HEENT: PERRL, hearing is well preserved, oral hygience is good Neck: No carotid bruit; carotid pulses are 2 + bilaterally Respiratory: No accessory muscle use, No respiratory distress; chest expansion is symmetric, chest is bilaterally symmetric, other (diminished breath sounds) Cardiovascular: irregularly irregular; No JVD; S1 and S2 Gastrointestinal: No tender; soft, round; No guarding; audible bowel sounds Extremities: other (bilat LE swelling, pitting ) Neurologic/Psychiatric: other (moves all extremities) Skin: No rash on exposed areas, No ulcerations on exposed areas Data Review Labs Laboratory Tests 02/09/23 13:20: White Blood Count 6.6, Red Blood Count 3.37L, Hemoglobin 9.0L, Hematocrit 32L, Mean Corpuscular Volume 94, Mean Corpuscular Hemoglobin 27, Mean Corpuscular Hemoglobin Concent 28L, Red Cell Distribution Width 19.3H, Platelet Count 258, Mean Platelet Volume 10.3, Immature Granulocyte % (Auto) 0, Neutrophils (%) (Auto) 74, Lymphocytes (%) (Auto) 13, Monocytes (%) (Auto) 10, Eosinophils (%) (Auto) 2, Basophils (%) (Auto) 0, Neutrophils # (Auto) 4.9, Lymphocytes # (Auto) 0.9L, Monocytes # (Auto) 0.7, Eosinophils # (Auto) 0.2, Basophils # (Auto) 0.0, Immature Granulocyte # (Auto) 0.0, Sodium Level 140, Potassium Level 3.9, Chloride Level 101, Carbon Dioxide Level 30, Anion Gap 9, Blood Urea Nitrogen 16, Creatinine 1.07, Estimat Glomerular Filtration Rate 51, BUN/Creatinine Ratio 15, Glucose Level 132H, Calcium Level 9.0, Corrected Calcium 9.4, Magnesium Level 2.4, Total Bilirubin 0.4, Aspartate Amino Transf (AST/SGOT) 17, Alanine Aminotransferase (ALT/SGPT) 8, Alkaline Phosphatase 125, B-Type Natriuretic Peptide 288.3H, Total Protein 7.4, Albumin 3.5 A/P-Cardiology Assessment/Admission Diagnosis Acute on chronic systolic CHF H/O ac resp failure, multifactorial: acute on ch CHF & cor pulmonale, marked an emia, probable obesity-hypovent/GER in November 2022 - for which she had a prolonged hospitalization at [facility] in [place], [place] Chronic CHF and cor pulmonale - 2D Echo done 01/27/[address] Barker showing mild diffuse hypokinesia with EF 45%. Dilated right and left atrium, moderate MR, severe TR. PA 75-80mmHg. Severe pulmonary hypertension with dilated right heart chambers. - Echocardiogram at [facility] by Dr. Corona is reported to show severe TR with elevated PASP (report not available) Recurrent marked anemia (during hospitalization at [facility] [place]) - Endoscopy of 03-25-[address] Manning showed Reflux esophagitis Mellette grade B, moderate size hiatal hernia approximately 3 cm in size. Moderate gastritis. No active bleeding. Chronic between stage II to III external and internal hemorrhoids, moderate sigmoid diverticulosis. Again, no active bleed. Small hyperplastic polyp of the ascending colon. - recurrent GI bleed suspected - anemia is being managed by PCP Paroxysmal atrial fibrillation (currently a-fib with controlled rate) - twelve-lead EKG was done showing atrial fibrillation with right bundle branch block. - [id number] score 4, yearly risk of stroke without oral anticoagulation is 4%. - Previously on Eliquis 5mg BID for stroke prophylaxis (currently being held d/t marked anemia and suspected GI bleed requiring transfusion at [facility]) Pulmonary HTN - likely d/t obesity hypoventilation syndrome/GER GER - non-compliant with CPAP tx Generalized weakness - continue PT/OT Hypertension - controlled Hyperlipidemia - maintained on statin CKD 3a - monitored and managed by the [facility] [place] DM II - management per Medical services Peripheral neuropathy Chronic pain syndrome Discussion and Recomendations Acute on chronic systolic CHF - treat with diuretics - monitor lab closely - Echocardiogram in the morning H/O PAF - unable to tolerate OAC for reasons noted above in assessment - continue rate controlling agents Monitor lab closely - replace electrolytes as indicated Further recs will be based on her hospital course We would like to thank Medical services for this consult HARITHA ESPARZA MD FACP [facility] CCDS Feb 09, 2023 18:32
[2023-02-09] MEDS: FUROSEMIDE INJECTION 40 MG/4 ML VIAL IVP SCH (18:51)
[2023-02-09] MEDS ORDERED: APIXABAN 2.5 MG TABLET PO SCH (21:00)
[2023-02-09] MEDS: RT-Ipratropium/Albuterol NEB 3 ML VIAL INH SCH (21:41)
[2023-02-09] MEDS: rOPINIRole 0.25 MG TABLET PO SCH (21:57)
[2023-02-09] MEDS: DOCUSATE SODIUM 100 MG CAPSULE PO SCH (22:21)
[2023-02-09] MEDS: SENNOSIDES 8.6 MG TABLET PO SCH (22:22)
[2023-02-09] MEDS: inSUlin ASPART 1 UNIT/0.01 ML (PER UNIT) SC SCH (22:22)
[2023-02-10] MEDS: oxyCODONE IMMEDIATE RELEASE 5 MG TABLET PO PRN ×3 (00:03→21:31)
[2023-02-10 04:50] VITALS: BP 109/65
[2023-02-10 05:09] LABS: BASOPHILS % (AUTO) 1 % (0-10); EOSINOPHILS # (AUTO) 0.1 10^3/uL (0.0-0.3); EOSINOPHILS % (AUTO) 2 % (0-10); HEMATOCRIT 29 % (35-52); HEMOGLOBIN 8.2 g/dL (11.5-16.0); LYMPHOCYTES # (AUTO) 1.1 10^3/uL (1.0-4.0); LYMPHOCYTES % (AUTO) 18 % (12-44); MEAN CORPUSCULAR HEMOGLOBIN 27 pg (25-34); MEAN CORPUSCULAR HGB CONC 29 g/dL (32-36); MEAN CORPUSCULAR VOLUME 92 fL (80-99); MEAN PLATELET VOLUME 10.2 fL (9.0-12.2); MONOCYTES # (AUTO) 0.7 10^3/uL (0.0-1.0); MONOCYTES % (AUTO) 11 % (0-12); NEUTROPHILS % (AUTO) 68 % (42-75); PLATELET COUNT 239 10^3/uL (130-400); WHITE BLOOD COUNT 5.9 10^3/uL (4.3-11.0)
[2023-02-10 05:16] LABS: ALBUMIN 3.2 GM/DL (3.2-4.5)
[2023-02-10 05:17] LABS: POTASSIUM 3.7 MMOL/L (3.6-5.0)
[2023-02-10 05:18] LABS: CALCIUM 8.6 MG/DL (8.5-10.1)
[2023-02-10 05:19] LABS: TOTAL PROTEIN 6.8 GM/DL (6.4-8.2)
[2023-02-10 05:21] LABS: BILIRUBIN,TOTAL 0.3 MG/DL (0.1-1.0)
[2023-02-10 05:23] LABS: CREATININE SERUM 1.09 MG/DL (0.60-1.30)
[2023-02-10 05:25] LABS: MAGNESIUM 2.3 MG/DL (1.6-2.4)
[2023-02-10] MEDS: POTASSIUM CHLORIDE 20 MEQ TABLET PO SCH (06:07)
[2023-02-10] MEDS: inSUlin ASPART 1 UNIT/0.01 ML (PER UNIT) SC SCH ×4 (06:07→21:31)
[2023-02-10] MEDS: FUROSEMIDE INJECTION 40 MG/4 ML VIAL IVP SCH ×2 (06:07→16:38)
[2023-02-10] MEDS: SENNOSIDES 8.6 MG TABLET PO SCH ×2 (08:48→21:30)
[2023-02-10] MEDS: DOCUSATE SODIUM 100 MG CAPSULE PO SCH ×2 (08:48→21:30)
--- NOTE | 2023-02-10 08:48 | Progress Note - Cardiology ---
Cardiology SOAP Progress Note Subjective: In bed Feels breathing is better this morning LE swelling and abd bloating better No c/o CP or palpitations Objective: I&O/Vital Signs 02/11/23 02/12/23 02/12/23 02/12/23 23:00 01:11 02:57 03:27 Temp 36.5 36.8 Pulse 62 100 93 Resp 18 18 B/P (MAP) 136/63 (87) 133/68 (89) Pulse Ox 95 92 96 O2 Delivery Nasal Cannula Nasal Cannula Nasal Cannula O2 Flow Rate 4.00 4.00 4.00 4.00 4.00 02/12/23 02/12/23 02/12/23 07:00 07:19 09:44 Temp 36.6 Pulse 99 100 Resp 20 B/P (MAP) 138/64 (88) Pulse Ox 95 95 O2 Delivery Nasal Cannula Nasal Cannula O2 Flow Rate 3.50 4.00 02/11/23 23:59 Intake Total 350 ml Output Total 1625 ml Balance -1275 ml Weight (Pounds): 212 Weight (Ounces): 7.0 Weight (Calculated Kilograms): 96.214621 Constitutional: AAO x 3, well-developed, well-nourished Respiratory: No accessory muscle use, No respiratory distress; chest expansion is symmetric, chest is bilaterally symmetric, other (diminished breath sounds) Cardiovascular: irregularly irregular; No JVD; S1 and S2 Gastrointestional: No tender; soft, round; No guarding; audible bowel sounds Extremities: No other Neurologic/Psychiatric: other (moves all extremities) Skin: No rash on exposed areas, No ulcerations on exposed areas Results/Procedures: Labs Laboratory Tests 02/11/23 10:10: Glucometer 87 02/11/23 20:27: Glucometer 117H 02/12/23 05:25: Glucometer 230H 02/12/23 05:48: White Blood Count 7.3, Red Blood Count 3.37L, Hemoglobin 8.9L, Hematocrit 31L, Mean Corpuscular Volume 93, Mean Corpuscular Hemoglobin 26, Mean Corpuscular H emoglobin Concent 28L, Red Cell Distribution Width 19.2H, Platelet Count 249, Mean Platelet Volume 10.0, Immature Granulocyte % (Auto) 0, Neutrophils (%) (Auto) 80H, Lymphocytes (%) (Auto) 8L, Monocytes (%) (Auto) 9, Eosinophils (%) (Auto) 2, Basophils (%) (Auto) 0, Neutrophils # (Auto) 5.8, Lymphocytes # (Auto) 0.6L, Monocytes # (Auto) 0.7, Eosinophils # (Auto) 0.1, Basophils # (Auto) 0.0, Immature Granulocyte # (Auto) 0.0, Sodium Level 139, Potassium Level 3.6, Chloride Level 100, Carbon Dioxide Level 29, Anion Gap 10, Blood Urea Nitrogen 16, Creatinine 1.04, Estimat Glomerular Filtration Rate 53, BUN/Creatinine Ratio 15, Glucose Level 237H, Calcium Level 9.1, Corrected Calcium 9.5, Total Bilirubin 0.4, Aspartate Amino Transf (AST/SGOT) 14, Alanine Aminotransferase (ALT/SGPT) 8, Alkaline Phosphatase 137H, Total Protein 7.4, Albumin 3.5 A/P: Assessment: Acute on chronic systolic CHF H/O ac resp failure, multifactorial: acute on ch CHF & cor pulmonale, marked anemia, probable obesity-hypovent/GER in November 2022 - for which she had a prolonged hospitalization at [facility] in [place], [place] Chronic CHF and cor pulmonale - 2D Echo done 01/27/[address] Barker showing mild diffuse hypokinesia with EF 45%. Dilated right and left atrium, moderate MR, severe TR. PA 75-80mmHg. Severe pulmonary hypertension with dilated right heart chambers. - Echocardiogram at [facility] by Dr. Corona is reported to show severe TR with elevated PASP (report not available) Recurrent marked anemia (during hospitalization at [facility]) - Endoscopy of 03-25-[address] Manning showed Reflux esophagitis Hickman grade B, moderate size hiatal hernia approximately 3 cm in size. Moderate gastritis. No active bleeding. Chronic between stage II to III external and internal hemorrhoids, moderate sigmoid diverticulosis. Again, no active bleed. Small hyperplastic polyp of the ascending colon. - recurrent GI bleed suspected - anemia is being managed by PCP Paroxysmal atrial fibrillation (currently a-fib with controlled rate) - twelve-lead EKG was done showing atrial fibrillation with right bundle branch block. - [id number] score 4, yearly risk of stroke without oral anticoagulation is 4%. - Previously on Eliquis 5mg BID for stroke prophylaxis (currently being held d/t marked anemia and suspected GI bleed requiring transfusion at [facility]) Pulmonary HTN - likely d/t obesity hypoventilation syndrome/GER GER - non-compliant with CPAP tx Generalized weakness - continue PT/OT Hypertension - controlled Hyperlipidemia - maintained on statin CKD 3a - monitored and managed by the [facility] DM II - management per Medical services Peripheral neuropathy Chronic pain syndrome Plan: Acute on chronic systolic CHF - treat with diuretics - monitor lab closely - Echocardiogram today H/O PAF - unable to tolerate OAC for reasons noted above in assessment - continue rate controlling agents Monitor lab closely - replace electrolytes as indicated SB REDDY Feb 10, 2023 08:48
[2023-02-10 08:56] VITALS: BP 121/66
[2023-02-10] MEDS: RT-Ipratropium/Albuterol NEB 3 ML VIAL INH SCH ×3 (09:55→21:24)
--- NOTE | 2023-02-10 10:24 | History & Physical ---
EMY GRECO 02/10/23 1024: History of Present Illness History of Present Illness Reason for visit/HPI Pt is an 87 y/o female with pmhx of COPD on O2, CHF, Afib, and GI bleed on Eliquis who presented to the ER yesterday with increasing SOB and weight gain with swelling in abd, pelvis, and b/l LEs. She wears O2 4L at home at all times. She states that for the last month she has gained ~23lbs and her SOB with swelling started getting much worse a few days ago. She received Lasix in the ER and she is now on IV Lasix 40 mg BID. Her nurse reports a lot of fluid came off- 1700 cc in 12 hrs. Today, she states that she does not feel as SOB and has been moving around a bit. Notes b/l leg pain, hx of neuropathy and DM. B/l LEs are tender to palpation. Date of Admission Feb 09, 2023 at 16:23 Date Seen by a Provider: Feb 10, 2023 Time Seen by a Provider: 10:16 I consulted on this patient on 02/10/23 10:16 Attending Physician Amber Figueroa MD Admitting Physician Admitting Physician: Fany Murillo DO Attending Physician: Fany Murillo DO Consult Allergies and Home Medications Allergies Coded Allergies: No Known Drug Allergies (Unverified , 10/10/22) Patient Home Medication List Home Medication List Reviewed: Yes Escitalopram Oxalate (Escitalopram Oxalate) 20 Mg Tablet, 20 MG PO HS, (Reported) Entered as Reported by: SULEIMAN SANCHEZ on 12/11/17 1311 Last Action: Reviewed Famotidine (Acid Personnel Director (FAMOTIDINE)) 20 Mg Tablet, 20 MG PO BID, (Reported) Entered as Reported by: LUCIE LOVING on 12/15/22 0957 Last Action: Reviewed Furosemide (Furosemide) 20 Mg Tablet, 40 MG PO 0800,1400, (Reported) Entered as Reported by: ANDRIA ROMERO on 07/06/18 1148 Last Action: Reviewed Gabapentin (Gabapentin) 100 Mg Capsule, 100 MG PO TID, (Reported) Entered as Reported by: SOFIA FRANCISCO on 03/24/22 1534 Last Action: Reviewed Hydrocodone/Acetaminophen (Hydrocodone-Acetamin 10-325 mg) 10 Mg-325 Mg Tablet, 1-2 EACH PO Q6H PRN for PAIN-MODERATE (5-7), (Reported) Entered as Reported by: LUCIE LOVING on 12/15/22956 Last Action: Reviewed Insulin Aspart (Novolog Flexpen) 100 Unit/Ml (3 Ml) Solution, UNITS SQ AC, (Reported) Entered as Reported by: SOFIA FRANCISCO on 03/24/221533 Last Action: Reviewed Insulin Degludec (Tresiba) 100 Unit/Ml Vial, 20 UNIT SQ HS, (Reported) Entered as Reported by: LUCIE LOVING on 12/15/22956 Last Action: Reviewed Omeprazole (Omeprazole) 40 Mg Capsule.dr, 40 MG PO DAILY, (Reported) Entered as Reported by: SOFIA FRANCISCO on 06/27/221453 Last Action: Reviewed Polyethylene Glycol 3350 (Miralax) 17 Gram Powd.pack, 17 GM PO DAILY PRN for CONSTIPATION-2ND LINE, (Reported) Entered as Reported by: Kelly Weller on 10/10/22 0740 Last Action: Reviewed Potassium Chloride (Potassium Chloride) 10 Meq Tab.er.prt, 20 MEQ PO 0800,1400, (Reported) Entered as Reported by: SOFIA FRANCISCO on 03/24/221533 Last Action: Reviewed Ropinirole HCl (Ropinirole HCl) 0.25 Mg Tablet, 0.25 MG PO HS, (Reported) Entered as Reported by: SOFIA FRANCISCO on 06/27/221453 Last Action: Reviewed Simvastatin (Simvastatin) 20 Mg Tablet, 20 MG PO HS, (Reported) Entered as Reported by: EDWIN ANGELA on 09/11/162022 Last Action: Reviewed Discontinued Medications Docusate Sodium (Colace) 100 Mg Capsule, 100 MG PO DAILY, (Reported) Discontinued Reason: No Longer Taking Entered as Reported by: HÉCTOR BERNAL on 02/09/231714 Last Action: Discontinued Past Ohnqsus-Ynhvnx-Fmlqsy Hx Patient Social History Tobacco Use?: No Smoking Status: Former Smoker Use of E-Cig and/or Vaping dev: No Substance use?: No Alcohol Use?: No Pt feels they are or have been: No Immunizations Up To Date Date of Influenza Vaccine: Dec 19, 2021 First/Initial COVID19 Vaccinat: AUGUST 2020 Second COVID19 Vaccination Sacha: SEPTEMBER 2020 Tetanus Booster (TDap): Unknown Hepatitis A: Yes Hepatitis B: Yes Date of Pneumonia Vaccine: Aug 08, 2019 Seasonal Allergies Seasonal Allergies: No Current Status Advance Directives: No Communicates: Verbally Primary Language: Lithuanian Preferred Spoken Language: Lithuanian Is interpretation needed?: No Sensory deficits: Vision impairment Implanted or Applied Medical D: None Past Medical History Surgeries: Appendectomy, Eye Surgery, Hysterectomy, Joint Replacement, Neurological, Oophorectomy, Orthopedic, Urinary Diversion COPD Currently Using CPAP: No Currently Using BIPAP: No Atrial Fibrillation, Chronic Edema/Swelling, Coronary Artery Disease, High Cholesterol, Hypertension Neuropathy, Stroke, TIA, Vertigo STRATEGIC INSIGHTS LEAD History: Hysterectomy, Menopausal Sexually Transmitted Disease: No HIV/AIDS: No Renal Failure, UTI-Chronic Gastroesophageal Reflux, Gastrointestinal Bleed, Chronic Constipation, Diverticulosis, Polyps, Hiatal Hernia, Gall Bladder Disease Degenerate Disk Disease, Arthritis, Chronic Back Pain, Fractures Diabetes, Insulin dep Cataract Loss of Vision: Denies Hearing Impairment: Hard of Hearing Anxiety, Depression Blood Disorders: Yes (ANEMIA) Adverse Reaction/Blood Tranf: No (RECEIVED 3 UNITS EARLY 2022 - NO ADVERSE REACTIONS) Family Medical History Myocardial infarction 19 MOTHER Heart Disease, Hypertension SOCIAL HISTORY: -SMOKED IN PAST, QUIT 1984 -ETOH--OCCASIONAL USE IN PAST, NONE FOR YEARS -DRUGS--DENIES USE PAST SURGICAL HISTORY: -BILATERAL CATARACTS 01/2019 -PORT PLACED/LATER REMOVED -BILATERAL KNEE REPLACEMENTS -RIGHT KNEE SCOPE/TORN MENISCUS 11/16/[address] BAILEY. -BILATERAL WRIST SURGERY -SURGERY FOR BRAIN ANEURYSM -COLONOSCOPIES/POLYPECTOMIES -EGD'S -APPENDECTOMY -HYSTERECTOMY/BILATERAL SALPINGO-OOPHORECTOMY -BLADDER SURGERY -CARDIAC CATH-NO INTERVENTION Review of Systems Constitutional: No chills, No fever EENTM: No vision loss, No hoarseness Respiratory: No cough; dyspnea on exertion, orthopnea, short of breath Cardiovascular: No chest pain, No palpitations Gastrointestinal: No abdominal pain, No constipation, No loss of appetite, No nausea, No vomiting Genitourinary: No discharge, No dysuria : No Musculoskeletal: muscle pain, muscle stiffness Skin: change in color (erythema, scaling and dryness in b/l LEs. Tender to palpation), dryness, other (L anterior leg with scrap covered by bandage. Cut self while shaving) Psychiatric/Neurological: Denies Headache, Denies Numbness Physical Exam Vital Signs Vital Signs - First Documented 02/09/23 02/09/23 02/09/23 13:10 13:13 17:11 Temp 37.1 Pulse 84 Resp 22 B/P (MAP) 141/83 (102) Pulse Ox 93 O2 Delivery Nasal Cannula O2 Flow Rate 4.00 FiO2 36 Capillary Refill : Height, Weight, BMI Height: 5'8.00" Weight: 212lbs. 7.0oz. 96.786950sp; 35.03 BMI Method:Stated General Appearance: No Apparent Distress, Chronically ill Eyes: Bilateral Eye Normal Inspection HEENT: TMs Normal, Normal ENT Inspection Neck: Full Range of Motion, Normal Inspection, Non Tender Respiratory: Chest Non Tender, Lungs Clear, Normal Breath Sounds, No Accessory Muscle Use, No Respiratory Distress Cardiovascular: Extra Beats, Gallop/S3, Irregularly Irregular Gastrointestinal: Non Tender, Soft Extremity: Calf Tenderness, Inflammation, Pedal Edema, Slow Capillary Refill, Swelling, Other (1+ pulses b/l in dorsalis pedis. B/l extremties are dry and scaly, hard to the touch. R live with laceration covered by bandage- cut self while shaving) Neurologic/Psychiatric: Alert, Oriented x3, No Motor/Sensory Deficits, Normal Mood/Affect Skin: Warm/Dry, Erythema, Rash, Other (B/l extremties are dry and scaly, hard to the touch. R live with laceration covered by bandage- cut self while shaving) Assessment/Plan Assessment and Plan Acute on chronic systolic CHF Chronic CHF and cor pulmonale GER, noncompliant with CPAP - Continue IV Lasix 40 mg BID. - O2 nasal cannula at 4 L (baseline) - Duoneb - Chest x-ray 02/09/23- Cardiomegaly with sequela of CHF including probable interstitial pulmonary edema. - Elevated BNP at 288.3 yesterday - Echo 01/27/[address] Barker showing mild diffuse hypokinesia with EF 45%. Dilated right and left atrium, moderate MR, severe TR. PA 75-80mmHg. Severe pulmonary hypertension with dilated right heart chambers. - Echocardiogram at [facility] by Dr. Corona is reported to show severe TR with elevated PASP (report not available) - Move down to fourth today Paroxysmal atrial fibrillation - Rate controlled - EKG was done showing atrial fibrillation with right bundle branch block. - Previously on Eliquis 5mg BID for stroke prophylaxis (currently being held d/t marked anemia and suspected GI bleed requiring transfusion at [facility]) Hx of anemia - Hgb today is 9, yesterday it was 8.2 - Endoscopy 03-25-[address] Manning showed reflux esophagitis, moderate size hiatal hernia approximately 3 cm in size. Moderate gastritis. No active bleeding. Chronic between stage II to III external and internal hemorrhoids, moderate sigmoid diverticulosis. Again, no active bleed. Small hyperplastic polyp of the ascending colon. - Recurrent GI bleed suspected and is being followed by PCP - Consult Dr. Manning CKD - Creatinine today is 1.09 which is close to baseline IDDM - Sliding scale insulin Admission Diagnosis Acute exacerbation of CHF Admission Status: Inpatient Order (span 2 midnights) Reason for Inpatient Admission: Acute exacerbation of CHF FANY MURILLO DO 02/11/23 0451: History of Present Illness History of Present Illness Reason for visit/HPI Chief complaint: Weakness with CHF exacerbation HPI: This is an 87-year-old female scented in the ER with shortness of breath found to have volume overload and congestive heart failure. Cardiology has been consulted. He remains stable and we will move down to fourth floor. Allergies and Home Medications Allergies Coded Allergies: No Known Drug Allergies (Unverified , 10/10/22) Patient Home Medication List Home Medication List Reviewed: Yes Escitalopram Oxalate (Escitalopram Oxalate) 20 Mg Tablet, 20 MG PO HS, (Reported) Entered as Reported by: SULEIMAN SANCHEZ on 12/11/17 1311 Last Action: Reviewed Famotidine (Acid Personnel Director (FAMOTIDINE)) 20 Mg Tablet, 20 MG PO BID, (Reported) Entered as Reported by: LUCIE LOVING on 12/15/22 0957 Last Action: Reviewed Furosemide (Furosemide) 20 Mg Tablet, 40 MG PO 0800,1400, (Reported) Entered as Reported by: ANDRIA ROMERO on 07/06/18 1148 Last Action: Reviewed Gabapentin (Gabapentin) 100 Mg Capsule, 100 MG PO TID, (Reported) Entered as Reported by: SOFIA FRANCISCO on 03/24/22 1534 Last Action: Reviewed Hydrocodone/Acetaminophen (Hydrocodone-Acetamin 10-325 mg) 10 Mg-325 Mg Tablet, 1-2 EACH PO Q6H PRN for PAIN-MODERATE (5-7), (Reported) Entered as Reported by: LUCIE LOVING on 12/15/22956 Last Action: Reviewed Insulin Aspart (Novolog Flexpen) 100 Unit/Ml (3 Ml) Solution, UNITS SQ AC, (Reported) Entered as Reported by: SOFIA FRANCISCO on 03/24/221533 Last Action: Reviewed Insulin Degludec (Tresiba) 100 Unit/Ml Vial, 20 UNIT SQ HS, (Reported) Entered as Reported by: LUCIE LOVING on 12/15/22956 Last Action: Reviewed Omeprazole (Omeprazole) 40 Mg Capsule.dr, 40 MG PO DAILY, (Reported) Entered as Reported by: SOFIA FRANCISCO on 06/27/221453 Last Action: Reviewed Polyethylene Glycol 3350 (Miralax) 17 Gram Powd.pack, 17 GM PO DAILY PRN for CONSTIPATION-2ND LINE, (Reported) Entered as Reported by: Kelly Weller on 10/10/22 0740 Last Action: Reviewed Potassium Chloride (Potassium Chloride) 10 Meq Tab.er.prt, 20 MEQ PO 0800,1400, (Reported) Entered as Reported by: SOFIA FRANCISCO on 03/24/221533 Last Action: Reviewed Ropinirole HCl (Ropinirole HCl) 0.25 Mg Tablet, 0.25 MG PO HS, (Reported) Entered as Reported by: SOFIA FRANCISCO on 06/27/221453 Last Action: Reviewed Simvastatin (Simvastatin) 20 Mg Tablet, 20 MG PO HS, (Reported) Entered as Reported by: EDWIN ANGELA on 09/11/162022 Last Action: Reviewed Discontinued Medications Docusate Sodium (Colace) 100 Mg Capsule, 100 MG PO DAILY, (Reported) Discontinued Reason: No Longer Taking Entered as Reported by: HÉCTOR BERNAL on 02/09/23 171 Last Action: Discontinued Past Gnymmqo-Xgbjtr-Vwmoef Hx Patient Social History Marrital Status: single Employed/Student: retired Smoking Status: Never a Smoker Past Medical History Atrial Fibrillation, Chronic Edema/Swelling, Coronary Artery Disease, High Cholesterol, Hypertension Family Medical History Myocardial infarction 19 MOTHER Review of Systems Constitutional: see HPI Respiratory: dyspnea on exertion, short of breath Physical Exam General Appearance: No Apparent Distress, WD/WN, Chronically ill Eyes: Bilateral Eye Normal Inspection, Bilateral Eye PERRL, Bilateral Eye EOMI HEENT: PERRL/EOMI, Normal ENT Inspection, Pharynx Normal Neck: Full Range of Motion, Normal Inspection, Non Tender, Supple, Carotid Bruit Respiratory: Chest Non Tender, Lungs Clear, Normal Breath Sounds, No Accessory Muscle Use, No Respiratory Distress, Decreased Breath Sounds Cardiovascular: No Edema, No Gallop, No JVD, No Murmur, Normal Peripheral Pulses, Irregularly Irregular, Tachycardia Gastrointestinal: Normal Bowel Sounds, No Organomegaly, No Pulsatile Mass, Non Tender, Soft Back: Normal Inspection, No CVA Tenderness, No Vertebral Tenderness Extremity: Normal Capillary Refill, Normal Inspection, Normal Range of Motion, Non Tender, No Calf Tenderness, No Pedal Edema Neurologic/Psychiatric: Alert, Oriented x3, No Motor/Sensory Deficits, Normal Mood/Affect Skin: Normal Color, Warm/Dry Lymphatic: No Adenopathy Assessment/Plan Assessment and Plan Assessment: Acute exacerbation of CHF Hypoxia Anemia Not an anticoagulation candidate due to severe anemia Plan: IV Lasix Cardiology consult Consult Dr. Manning For hemorrhoid management Admission Diagnosis Admission Status: Inpatient Order (span 2 midnights) Reason for Inpatient Admission: acute hypoxia from CHF exacerbation Supervisory-Addendum Brief Verification & Attestation Participated in pt care: history, MDM, physical Personally performed: exam, history, MDM, supervision of care Care discussed with: Medical Student Procedures: n/a Results interpretation: Verified all documentation Verification and Attestation of Medical Student E/M Service A medical student performed and documented this service in my presence. I reviewed and verified all information documented by the medical student and made modifications to such information, when appropriate. I personally performed the physical exam and medical decision making. Fany Murillo, Feb 11, 2023,04:49 EMY GRECO Feb 10, 2023 10:24 FANY MURILLO DO Feb 11, 2023 04:51
[2023-02-10 12:00] VITALS: BP 140/65
[2023-02-10] MEDS: GABAPENTIN 100 MG CAPSULE PO SCH ×2 (13:50→21:29)
--- NOTE | 2023-02-10 14:09 | Progress Note-Pre Operative ---
Pre-Operative Progress Note Date of Available H&P: Feb 10, 2023 Date H&P Reviewed: Feb 10, 2023 Time H&P Reviewed: 13:00 History & Physical: No changes noted Pre-Operative Diagnosis: sx rectal bleed with hx stage 3 int hemorrhoids. LISSA GENAO MD Feb 10, 2023 14:09
--- NOTE | 2023-02-10 14:12 | Progress Note - Cardiology ---
Cardiology SOAP Progress Note Subjective: No cp or palp or syncope Improvement of shortness of breath Gen weakness No focal weakness No n/v/d Objective: I&O/Vital Signs 02/10/23 02/10/23 02/10/23 02/10/23 03:39 04:50 07:00 08:30 Temp 36.4 Pulse 87 90 Resp 15 B/P (MAP) 109/65 (80) Pulse Ox 99 O2 Delivery Nasal Cannula Nasal Cannula O2 Flow Rate 4.00 4.00 02/10/23 02/10/23 02/10/23 02/10/23 08:56 09:55 12:00 13:08 Temp 36.5 Pulse 87 104 90 Resp 17 20 B/P (MAP) 121/66 (84) 140/65 (90) Pulse Ox 96 97 100 O2 Delivery Nasal Cannula Nasal Cannula Nasal Cannula O2 Flow Rate 4.00 4.00 4.00 02/09/23 23:59 Intake Total 600 ml Output Total 2175 ml Balance -1575 ml Weight (Pounds): 212 Weight (Ounces): 7.0 Weight (Calculated Kilograms): [id number] Constitutional: AAO x 3, well-developed, well-nourished Respiratory: No accessory muscle use, No respiratory distress; chest expansion is symmetric, chest is bilaterally symmetric, other (diminished breath sounds) Cardiovascular: irregularly irregular; No JVD; S1 and S2 Gastrointestional: No tender; soft, round; No guarding; audible bowel sounds Extremities: No other Neurologic/Psychiatric: other (moves all extremities) Skin: No rash on exposed areas, No ulcerations on exposed areas Results/Procedures: Labs Laboratory Tests 02/09/23 20:58: Glucometer 130H 02/10/23 04:42: White Blood Count 5.9, Red Blood Count 3.10L, Hemoglobin 8.2L, Hematocrit 29L, Mean Corpuscular Volume 92, Mean Corpuscular Hemoglobin 27, Mean Corpuscular Hemoglobin Concent 29L, Red Cell Distribution Width 19.3H, Platelet Count 239, Mean Platelet Volume 10.2, Immature Granulocyte % (Auto) 0, Neutrophils (%) (Auto) 68, Lymphocytes (%) (Auto) 18, Monocytes (%) (Auto) 11, Eosinophils (%) (Auto) 2, Basophils (%) (Auto) 1, Neutrophils # (Auto) 4.0, Lymphocytes # (Auto) 1.1, Monocytes # (Auto) 0.7, Eosinophils # (Auto) 0.1, Basophils # (Auto) 0.0, Immature Granulocyte # (Auto) 0.0, Sodium Level 141, Potassium Level 3.7, Chloride Level 101, Carbon Dioxide Level 32, Anion Gap 8, Blood Urea Nitrogen 16, Creatinine 1.09, Estimat Glomerular Filtration Rate 50, BUN/Creatinine Ratio 15, Glucose Level 153H, Calcium Level 8.6, Corrected Calcium 9.2, Magnesium Level 2.3, Total Bilirubin 0.3, Aspartate Amino Transf (AST/SGOT) 14, Alanine Aminotransferase (ALT/SGPT) 8, Alkaline Phosphatase 121, Total Protein 6.8, Albumin 3.2 02/10/23 11:34: Glucometer 179H Laboratory Tests 02/09/23 13:20 02/10/23 04:42 A/P: Assessment: Acute on chronic systolic and diastolic CHF - echo on 02/10/23: LVEF 45-50%, enlargement of both atria and RV, mild to mod MR, mod to severe TR, AoV sclerosis w/o stenosis, small amout of pericardial fluid w/o evidence of hemodynamic significance, PASP 40-45 mmHg H/O ac resp failure, multifactorial: acute on ch CHF & cor pulmonale, marked anemia, probable obesity-hypovent/GER in November 2022 - for which she had a prolonged hospitalization at [facility] in [place], [place] Chronic CHF and cor pulmonale - 2D Echo done 01/27/[address] Barker showing mild diffuse hypokinesia with EF 45%. Dilated right and left atrium, moderate MR, severe TR. PA 75-80mmHg. Severe pulmonary hypertension with dilated right heart chambers. Recurrent marked anemia (during hospitalization at [facility]) - Endoscopy of 03-25-[address] Manning showed Reflux esophagitis [place] grade B, moderate size hiatal hernia approximately 3 cm in size. Moderate gastritis. No active bleeding. Chronic between stage II to III external and internal hemorrhoids, moderate sigmoid diverticulosis. Again, no active bleed. Small hyperplastic polyp of the ascending colon. - recurrent GI bleed suspected - anemia is being managed by PCP Paroxysmal atrial fibrillation (currently a-fib with controlled rate) - twelve-lead EKG was done showing atrial fibrillation with right bundle branch block. - [id number] score 4, yearly risk of stroke without oral anticoagulation is 4%. - Previously on Eliquis 5mg BID for stroke prophylaxis (currently being held d/t marked anemia and suspected GI bleed requiring transfusion at [facility]) Pulmonary HTN - likely d/t obesity hypoventilation syndrome/GER GER - non-compliant with CPAP tx Generalized weakness - continue PT/OT Hypertension - controlled Hyperlipidemia - maintained on statin CKD 3a - monitored and managed by the [facility] [place] DM II - management per Medical services Peripheral neuropathy Chronic pain syndrome Plan: * Continue diuretic * Continue rate-contolling agents * Monitor labs * unable to tolerate OAC for reasons noted above in Assessment HARITHA ESPARZA MD FACP FAC CCDS Feb 10, 2023 14:12
--- NOTE | 2023-02-10 15:06 | Physical Therapy Evaluation ---
PT Evaluation-General Medical Diagnosis Admission Date Feb 09, 2023 at 16:23 Medical Diagnosis: CHF exacerbation Onset Date: Feb 09, 2023 Therapy Diagnosis Therapy Diagnosis: generalized weakness/debility Height/Weight Height (Feet): 5 Height (Inches): 8.00 Weight (Pounds): 212 Weight (Ounces): 7.0 Precautions Precautions/Isolations: Fall Prevention, Standard Precautions Referral Physician: Faith Reason for Referral: Evaluation/Treatment Medical History Pertinent Medical History: Atrial Fib, Arthritis, CAD, DM, Heart Failure, HTN, Neuropathy, OA, Renal Insufficiency, Smoking Current History ER secondary to fluid retention Reviewed History: Yes Social History Home: [facility] Current Living Status: Other Family Entry Into Home: Stairs With Railing PT Steps Into Home: 2 Prior Prior Level of Function SCALE: Activities may be completed with or without assistive devices. 7-Oztboqdofs-wfdxnkh completes the activity by him/herself with no assistance from a helper. 5-Set-up or Clean-up Assistance-helper sets up or cleans up; patient completes activity. [place] assists only prior to or following the activity. 4-Supervision or Touching Assistance-helper provides verbal cues and/or touching/steadying and/or contact guard assistance as patient completes activity. Assistance may be provided throughout the activity or intermittently. 3-Partial/Moderate Assistance-helper does LESS THAN HALF the effort. [place] lifts, holds or supports trunk or limbs, but provides less than half the effort. 2-Substantial/Maximal Assistance-helper does MORE THAN HALF the effort. [place] lifts or holds trunk or limbs and provides more than half the effort. 0-Nwombtjqk-jvzytf does ALL the effort. Patient does none of the effort to complete the activity. Or, the assistance of 2 or more helpers is required for the patient to complete the activity. If activity was not attempted, code reason: 7-Patient Refused. 9-Not Applicable-not attempted and the patient did not perform the activity before the current illness, exacerbation or injury. 10-Not Attempted due to Environmental Limitations-(lack of equipment, weather restraints, etc.). 88-Not Attempted due to Medical Conditions or Safety Concerns. Bed Mobility: 6 Transfers (B,C,W/C): 6 Gait: 6 Indoor Mobility (Ambulation): Independent Prior Devices Use: Walker PT Evaluation-Current Subjective Patient agrees to therapy. Objective Patient Orientation: Normal For Age Attachments: Oxygen, [place] Catheter ROM/Strength ROM Lower Extremities bilateral LE noted edema Strength Lower Extremities 3/5 grossly bilateral LE all planes Integumentary/Posture Bladder Incontinence: [place]man Cath Posture WFL Neuromuscular (Tone, Coordination, Reflexes) grossly intact Sensory Vision: Functional Hearing: Functional Transfers Sit to Stand (QC): 4 Gait Mode of Locomotion: Walk Anticipated Mode of Locomotion: Walk Walk 10 feet (QC): 4 Walk 50 ft with 2 Turns(QC): 4 Walk 150 ft (QC): 4 Distance: 150' Gait Assistive Device: FWW Comments/Gait Description slow, steady gait sequence Balance Sitting Static: Normal Sitting Dynamic: Normal Standing Static: Normal Standing Dynamic: Normal Assessment/Needs Patient will be seen short term by skilled PT to address functional strength and mobility to improve current LOF to safely return to home with family at maximum LOF. Rehab Potential: Fair PT Turret Punch Press Operator Goals Turret Punch Press Operator Goals PT Retirement Goals Time Frame: Feb 21, 2023 Roll Left & Right (QC): 6 Sit to Lying (QC): 6 Lying-Sitting on Side/Bed(QC): 6 Sit to Stand (QC): 6 Chair/Qcm-wi-Ypudl Xfer(QC): 6 Toilet Transfer (QC): 6 Walk 10 feet (QC): 6 Walk 50ft with 2 Turns (QC): 6 Walk 150 ft (QC): 6 PT Plan Problem List Problem List: Activity Tolerance, Functional Strength, Safety, Balance, Gait, Transfer, Bed Mobility Treatment/Plan Treatment Plan: Continue Plan of Care Treatment Plan: Bed Mobility, Education, Functional Activity Patricia, Functional Strength, Gait, Safety, Therapeutic Exercise, Transfers Treatment Duration: Feb 21, 2023 Frequency: 5 times per week Estimated Hrs Per Day: .25 hour per day Time Time In: 1445 Time Out: 1500 DATE: Feb 10, 2023 Total Billed Treatment Time: 15 Total Billed Treatment 1 visit EVMod 15 min ISAMAR JADE PT Feb 10, 2023 15:06
--- NOTE | 2023-02-10 15:22 | Occupational Therapy Eval ---
OT Evaluation-General/PLF Medical Diagnosis Admission Date Feb 09, 2023 at 16:23 Medical Diagnosis: CHF exacerbation Onset Date: Feb 09, 2023 Therapy Diagnosis Therapy Diagnosis: weakness Height/Weight Height (Feet): 5 Height (Inches): 8.00 Weight (Pounds): 212 Weight (Ounces): 7.0 Precautions Precautions/Isolations: Fall Prevention, Standard Precautions Weight Bear Status Weight Bearing Restriction: Full Weight Bearing Location Restriction: LE Bilateral, UE Bilateral Referral Physician: Faith Referral Reason: Evaluation/Treatment Medical History Pertinent Medical History: Atrial Fib, Arthritis, CAD, DM, Heart Failure, HTN, Neuropathy, OA, Renal Insufficiency, Smoking Reviewed History: Yes Social History Home: [facility] Current Living Status: Other Family Entry Into Home: Stairs With Railing Steps Into Home: 2 ADL-Prior Level of Function SCALE: Activities may be completed with or without assistive devices. 9-Dkbrjlkjjo-eyzzcsa completes the activity by him/herself with no assistance from a helper. 5-Set-up or Clean-up Assistance-helper sets up or cleans up; patient completes activity. [place] assists only prior to or following the activity. 4-Supervision or Touching Assistance-helper provides verbal cues and/or touching/steadying and/or contact guard assistance as patient completes activity. Assistance may be provided throughout the activity or intermittently. 3-Partial/Moderate Assistance-helper does LESS THAN HALF the effort. [place] lifts, holds or supports trunk or limbs, but provides less than half the effort. 2-Substantial/Maximal Assistance-helper does MORE THAN HALF the effort. [place] lifts or holds trunk or limbs and provides more than half the effort. 7-Agvcftvgu-bljscw does ALL the effort. Patient does none of the effort to complete the activity. Or, the assistance of 2 or more helpers is required for the patient to complete the activity. If activity was not attempted, code reason: 7-Patient Refused. 9-Not Applicable-not attempted and the patient did not perform the activity before the current illness, exacerbation or injury. 10-Not Attempted due to Environmental Limitations-(lack of equipment, weather restraints, etc.). 88-Not Attempted due to Medical Conditions or Safety Concerns. Self Care: Needed Some Help Functional Cognition: Independent Drive Self: No OT Current Status Subjective Agreeable to participate w/ therapy Mental Status/Objective Patient Orientation: Person, Place, Time, Situation Attachments: [place]man Catheter, Oxygen, Telemetry Current Glasses/Contacts: Yes Hand Dominance: Right Upper Extremity ROM BUE ROM WFLS Upper Extremity Coordination fair +, slow motor planning Upper Extremity Strength +3/5 grossly ADL-Treatment Eating (QC): 6 (not wearing dentures) Oral Hygiene (QC): 5 Shower/Bathe Self (QC): 88 Upper Body Dressing (QC): 4 Lower Body Dressing (QC): 3 On/Off Footwear (QC): 3 Toileting Hygiene (QC): 4 Education OT Patient Education: Correct positioning, Modified ADL techniques, Progress toward Goal/Update tx plan, Purpose of tx/functional activities, Reviewed precautions, Rehab process, Safety issues, Transfer techniques Teaching Recipient: Patient Teaching Methods: Demonstration Response to Teaching: Verbalize Understanding, Return Demonstration, Reinforcement Needed OT Care Home Goals Care Home Goals Eating (QC): 6 Oral Hygiene (QC): 6 Toileting Hygiene (QC): 5 Shower/Bathe Self (QC): 4 Upper Body Dressing (QC): 5 Lower Body Dressing (QC): 4 On/Off Footwear (QC): 3 1=Demonstrate adherence to instructed precautions during ADL tasks. 2=Patient will verbalize/demonstrate understanding of assistive devices/modifications for ADL. 3=Patient will improve strength/tolerance for activity to enable patient to perform ADL's. OT Education/Plan Problem List/Assessment Assessment: Decreased Activ Tolerance, Decreased Safety Aware, Decreased UE Strength, Impaired Cognition, Impaired Coordination, Impaired Funct Balance, Impaired Self-Care Skills Discharge Recommendations Plan/Recommendations: Continue POC Treatment Plan/Plan of Care Treatment,Training & Education: Yes Patient would benefit from OT for education, treatment and training to promote independence in ADL's, mobility, safety and/or upper extremity function for ADL's. Plan of Care: ADL Retraining, Functional Mobility, Group Exercise/Act as Ind, UE Funct Exercise/Act, UE Neuromus Re-Ed/Coord Treatment Duration: Feb 13, 2023 Frequency: 3 times per week Estimated Hrs Per Day: .25 hour per day Agreement: Yes Rehab Potential: Fair Remains in recliner, all needs met Time Start Time: 14:45 Stop Time: 15:00 DATE: Feb 10, 2023 Total Time Billed (hr/min): 15 Billed Treatment Time EVM 15 min DOC OGDEN OT Feb 10, 2023 15:22
[2023-02-10 15:36] VITALS: BP 133/63
--- NOTE | 2023-02-10 17:19 | CONSULTATION REPORT ---
DATE OF SERVICE: 02/10/2023 ATTENDING PRIMARY CARE PHYSICIAN: Dr. Amber Figueroa. ADMITTING PHYSICIAN: Dr. Cuevas. HISTORY OF PRESENT ILLNESS: The patient is a 87-year-old female known to us. She has an extensive past medical history including COPD and is oxygen dependent at home. She also does have a history of congestive heart failure, atrial fibrillation and multiple episodes of gastrointestinal bleeding and is on anticoagulation with Eliquis. She presented to the emergency room with increasing shortness of breath as well as some mild abdominal swelling as well as edema of bilateral lower extremities. She was admitted and started on Lasix 40 mg b.i.d. and she was able to draw off a significant amount of fluid, which did help with her symptomatology. Upon further questioning, she reports that she continues to have red blood per rectum on an intermittent basis, usually a few times a week. The patient was found to be mildly anemic with a hemoglobin of 8.2 and a normal white count. We had done a colonoscopy on her on 03/25/2022 and was found to have between stage II and III external and internal hemorrhoids as well as a moderate sigmoid diverticulosis and a small hyperplastic polyp of the ascending colon 2 mm in size and no active bleeding. Since that colonoscopy, she again has had repeated episodes of rectal bleeding and mild anemia, likely secondary to her internal hemorrhoids and being on anticoagulation. On this admission. We will proceed with an anal exam under anesthesia as well as banding of the internal hemorrhoidal cushions. PAST MEDICAL HISTORY: COPD, CHF, atrial fibrillation, history of gastrointestinal bleeding, diabetes, hypercholesterolemia, bilateral lower extremity edema, degenerative joint disease, neuropathy, history of stroke, history of TIA, history of coronary artery disease. PAST SURGICAL HISTORY: Appendectomy, total joint replacement, hysterectomy, eye surgery, port placement, bilateral cataract, right knee arthroscopy 2019, bilateral total knee arthroplasty, brain aneurysm clipping, bladder surgery, cardiac catheterization. ALLERGIES: NO KNOWN DRUG ALLERGIES. MEDICATIONS: Colace 100 mg daily, escitalopram 20 mg daily, famotidine 20 mg b.i.d., iron 325 mg daily, furosemide 40 mg b.i.d., gabapentin 100 mg t.i.d., hydrocodone 10/325 q.6 hours p.r.n., aspartate insulin 4 units q.a.c. and sliding scale degludec insulin 20 units q.h.s., omeprazole 40 mg daily, MiraLax p.r.n., potassium 10 mEq b.i.d., ropinirole 0.25 mg daily, simvastatin 20 mg daily. SOCIAL HISTORY: Former smoker, quit over 20 years ago. Negative alcohol. FAMILY HISTORY: Mother, heart disease, hypertension. VITAL SIGNS: Temperature 36.9, blood pressure 133/63, pulse 89, respirations 20, pulse ox 99% on 4 liters nasal cannula. REVIEW OF SYSTEMS: Well-nourished female, currently in no acute distress. She is not experiencing any shortness of breath or difficulty in breathing. No chest pain, palpitations, diaphoresis. No nausea or vomiting with longstanding history of constipation as well as intermittent episodes of bright red blood per rectum. No dark tarry stools. No fever or chills. No recent inadvertent weight loss. All other review of systems negative. PHYSICAL EXAMINATION: CHEST: Scattered rales and rhonchi bilaterally. HEART: Regular. No murmurs. EXTREMITIES: A +1.5/3 bilateral lower extremity edema. Negative Homans sign. HEENT: No scleral icterus. No cervical lymphadenopathy. ABDOMEN: Soft, nontender, nondistended. SKIN: Warm, dry. LABORATORY DATA: WBC 5.9, hemoglobin 8.2, hematocrit 29, platelets 239. BUN 16, creatinine 1.09. Liver function enzymes normal. ASSESSMENT AND PLAN: An 87-year-old female with exacerbation of CHF, symptomatic edema and shortness of breath. We have been following her for some time for her intermittent episodes of rectal bleeding, which do cause symptomatic anemia. Due to the fact that she is admitted and under care and observation, we will proceed with an anal exam under anesthesia and endoscopy as well as banding of as many internal hemorrhoidal cushions as possible. Hopefully, with this and eventual scarring, this will decrease, if not completely cease symptomatic rectal bleeding. Job ID: [id number] DocumentID: [id number] Dictated Date: 02/10/2023 16:35:33 Automatic Die Cutting Machine Operator Date: 02/10/2023 17:16:00 Dictated By: LISSA GENAO MD [facility]
[2023-02-10 19:23] VITALS: BP 127/67
[2023-02-10] MEDS ORDERED: INSULIN DEGLUDEC 20 UNIT SQ SCH (21:00)
[2023-02-10] MEDS ORDERED: NON-FORMULARY MEDICATION 1 EA EA (Simvastatin 20 MG) PO SCH (21:00)
[2023-02-10] MEDS ORDERED: NON-FORMULARY MEDICATION 1 EA EA (Escitalopram Oxalate 20 MG) PO SCH (21:00)
[2023-02-10] MEDS: CITALOPRAM 20 MG TABLET PO SCH (21:29)
[2023-02-10] MEDS: rOPINIRole 0.25 MG TABLET PO SCH (21:29)
[2023-02-10] MEDS: inSUlin DETERMIR 1 UNIT/0.01 ML (CHARGE PER UNIT) SQ SCH (21:31)
[2023-02-10 23:28] VITALS: BP 149/66
[2023-02-11] VITALS (7 sets, daily range): BP systolic 94–136; BP diastolic 50–76
[2023-02-11] MEDS: RT-Ipratropium/Albuterol NEB 3 ML VIAL INH SCH ×4 (02:44→21:59)
[2023-02-11 05:38] LABS: BASOPHILS % (AUTO) 0 % (0-10); EOSINOPHILS # (AUTO) 0.2 10^3/uL (0.0-0.3); EOSINOPHILS % (AUTO) 3 % (0-10); HEMATOCRIT 28 % (35-52); HEMOGLOBIN 8.2 g/dL (11.5-16.0); LYMPHOCYTES # (AUTO) 0.9 10^3/uL (1.0-4.0); LYMPHOCYTES % (AUTO) 16 % (12-44); MEAN CORPUSCULAR HEMOGLOBIN 27 pg (25-34); MEAN CORPUSCULAR HGB CONC 29 g/dL (32-36); MEAN CORPUSCULAR VOLUME 92 fL (80-99); MEAN PLATELET VOLUME 10.1 fL (9.0-12.2); MONOCYTES # (AUTO) 0.7 10^3/uL (0.0-1.0); MONOCYTES % (AUTO) 12 % (0-12); NEUTROPHILS # (AUTO) 3.7 10^3/uL (1.8-7.8); NEUTROPHILS % (AUTO) 68 % (42-75); PLATELET COUNT 247 10^3/uL (130-400); WHITE BLOOD COUNT 5.4 10^3/uL (4.3-11.0)
[2023-02-11] MEDS: inSUlin ASPART 1 UNIT/0.01 ML (PER UNIT) SC SCH ×4 (05:46→21:15)
[2023-02-11 05:47] LABS: ALBUMIN 3.2 GM/DL (3.2-4.5)
[2023-02-11 05:48] LABS: POTASSIUM 3.4 MMOL/L (3.6-5.0)
[2023-02-11 05:49] LABS: CALCIUM 8.6 MG/DL (8.5-10.1)
[2023-02-11 05:50] LABS: TOTAL PROTEIN 6.8 GM/DL (6.4-8.2)
[2023-02-11] MEDS: POTASSIUM CHLORIDE 20 MEQ TABLET PO SCH (05:50)
[2023-02-11] MEDS: FUROSEMIDE INJECTION 40 MG/4 ML VIAL IVP SCH ×2 (05:50→18:01)
[2023-02-11] MEDS: oxyCODONE IMMEDIATE RELEASE 5 MG TABLET PO PRN (05:51)
[2023-02-11 05:52] LABS: BILIRUBIN,TOTAL 0.3 MG/DL (0.1-1.0)
[2023-02-11 05:54] LABS: CREATININE SERUM 0.89 MG/DL (0.60-1.30)
--- NOTE | 2023-02-11 08:46 | Progress Note ---
EMY GRECO 02/11/23 0846: Subjective Date Seen by a Provider: Feb 11, 2023 Time Seen by a Provider: 08:45 Subjective/Events-last exam Pt is doing well overall. Today, states that her SOB has improved since when she first came in. She was very drowsy when talking to her this morning and she notes that she had just worked with PT. She reports that she could not sleep last night d/t discomfort. Today, she is NPO and supposed to have internal hemorrhoid banding w/ Dr. Manning. Review of Systems General: Fatigue, Malaise HEENT: No Head Aches, No Visual Changes Pulmonary: Dyspnea; No Cough Cardiovascular: Paroxysmal Noc. Dyspnea; No: Chest Pain, Palpitations Gastrointestinal: No: Nausea, Vomiting, Abdominal Pain Genitourinary: No Dysuria, No Frequency Musculoskeletal: No: neck pain, shoulder pain Neurological: No: Change in speech, Confusion Objective Exam Last Set of Vital Signs Vital Signs Date Time Temp Pulse Resp B/P (MAP) Pulse Ox O2 Delivery O2 Flow Rate FiO2 02/11/23 07:24 36.7 87 20 130/75 (93) 94 Nasal Cannula 4.00 02/09/23 17:11 36 Capillary Refill : I&O Intake and Output 02/11/23 00:00 Intake Total 950 ml Output Total 2275 ml Balance -1325 ml Intake Oral 950 ml Output Urine Total 2275 ml # Bowel Movements 1 General: Alert, Oriented X3, Cooperative, No Acute Distress HEENT: Atraumatic Neck: Supple, No Thyromegaly Lungs: Clear to Auscultation, Normal Air Movement Heart: Regular Rate Abdomen: Normal Bowel Sounds, Soft, No Tenderness Extremities: Other (b/l LE tenderness) Skin: No Breakdown, Other (dryness in b/l LE) Neuro: Normal Speech, Normal Tone Psych/Mental Status: Mental Status NL, Mood NL Results Lab Laboratory Tests 02/10/23 11:34: Glucometer 179H 02/10/23 15:35: Glucometer 152H 02/10/23 20:35: Glucometer 230H 02/11/23 05:21: White Blood Count 5.4, Red Blood Count 3.07L, Hemoglobin 8.2L, Hematocrit 28L, Mean Corpuscular Volume 92, Mean Corpuscular Hemoglobin 27, Mean Corpuscular Hemoglobin Concent 29L, Red Cell Distribution Width 19.2H, Platelet Count 247, Mean Platelet Volume 10.1, Immature Granulocyte % (Auto) 0, Neutrophils (%) (Auto) 68, Lymphocytes (%) (Auto) 16, Monocytes (%) (Auto) 12, Eosinophils (%) (Auto) 3, Basophils (%) (Auto) 0, Neutrophils # (Auto) 3.7, Lymphocytes # (Auto) 0.9L, Monocytes # (Auto) 0.7, Eosinophils # (Auto) 0.2, Basophils # (Auto) 0.0, Immature Granulocyte # (Auto) 0.0, Sodium Level 143, Potassium Level 3.4L, Chloride Level 103, Carbon Dioxide Level 32, Anion Gap 8, Blood Urea Nitrogen 15, Creatinine 0.89, Estimat Glomerular Filtration Rate 63, BUN/Creatinine Ratio 17, Glucose Level 111H, Calcium Level 8.6, Corrected Calcium 9.2, Total Bilirubin 0.3, Aspartate Amino Transf (AST/SGOT) 12, Alanine Aminotransferase (ALT/SGPT) 8, Alkaline Phosphatase 130, Total Protein 6.8, Albumin 3.2 02/11/23 05:38: Glucometer 108 Assessment/Plan Assessment/Plan Assess & Plan/Chief Complaint Acute on chronic systolic CHF Chronic CHF and cor pulmonale GER, noncompliant with CPAP - Continue IV Lasix 40 mg BID - O2 nasal cannula at 4 L (baseline) - Duoneb - Chest x-ray 02/09/23- Cardiomegaly with sequela of CHF including probable interstitial pulmonary edema. - Echo 01/27/[address] Barker showing mild diffuse hypokinesia with EF 45%. Dilated right and left atrium, moderate MR, severe TR. PA 75-80mmHg. Severe pulmonary hypertension with dilated right heart chambers. - Echocardiogram at [facility] by Dr. Corona is reported to show severe TR with elevated PASP (report not available) - K low at 3.4, was 3.7 yesterday. Replace Paroxysmal atrial fibrillation - Rate controlled - EKG was done showing atrial fibrillation with right bundle branch block. - Previously on Eliquis 5mg BID for stroke prophylaxis (currently being held d/t marked anemia and suspected GI bleed requiring transfusion at [facility]) Hx of anemia - Hgb stable at 8.2 - Endoscopy 03-25-[address] Manning showed reflux esophagitis, moderate size hiatal hernia approximately 3 cm in size. Moderate gastritis. No active bleeding. Chronic between stage II to III external and internal hemorrhoids, moderate sigmoid diverticulosis. Again, no active bleed. Small hyperplastic polyp of the ascending colon. Recurrent GI bleed suspected - Supposed to get internal hemorrhoid banding today w/ Dr. Manning. - General surgery following appreciate recommendations CKD - Creatinine today is 0.89 IDDM - Sliding scale insulin Clinical Quality Measures Admission Status Admission Dx Acute on chronic systolic CHF Chronic CHF and cor pulmonale GER, noncompliant with CPAP - Continue IV Lasix 40 mg BID. - O2 nasal cannula at 4 L (baseline) - Duoneb - Chest x-ray 02/09/23- Cardiomegaly with sequela of CHF including probable interstitial pulmonary edema. - Elevated BNP at 288.3 yesterday - Echo 01/27/[address] Barker showing mild diffuse hypokinesia with EF 45%. Dilated right and left atrium, moderate MR, severe TR. PA 75-80mmHg. Severe pulmonary hypertension with dilated right heart chambers. - Echocardiogram at [facility] by Dr. Corona is reported to show severe TR with elevated PASP (report not available) - Move down to fourth today Paroxysmal atrial fibrillation - Rate controlled - EKG was done showing atrial fibrillation with right bundle branch block. - Previously on Eliquis 5mg BID for stroke prophylaxis (currently being held d/t marked anemia and suspected GI bleed requiring transfusion at [facility]) Hx of anemia - Hgb today is 9, yesterday it was 8.2 - Endoscopy 03-25-[address] Manning showed reflux esophagitis, moderate size hiatal hernia approximately 3 cm in size. Moderate gastritis. No active bleeding. Chronic between stage II to III external and internal hemorrhoids, moderate sigmoid diverticulosis. Again, no active bleed. Small hyperplastic polyp of the ascending colon. - Recurrent GI bleed suspected and is being followed by PCP - Consult Dr. Manning CKD - Creatinine today is 1.09 which is close to baseline IDDM - Sliding scale insulin FANY MURILLO DO 02/12/23 0456: Subjective Subjective/Events-last exam Patient doing well Hemorrhoid banding today No falls Review of Systems General: Fatigue, Malaise Objective Exam General: Alert, Oriented X3, Cooperative, No Acute Distress Lungs: Clear to Auscultation, Normal Air Movement Heart: Regular Rate, Normal S1, Normal S2, No Murmurs Psych/Mental Status: Mental Status NL, Mood NL Assessment/Plan Assessment/Plan Assess & Plan/Chief Complaint Hemorrhoid banding today Monitor creatinine Supervisory-Addendum Brief Verification & Attestation Participated in pt care: history, MDM, physical Personally performed: exam, history, MDM, supervision of care Care discussed with: Medical Student Procedures: n/a Results interpretation: Verified all documentation Verification and Attestation of Medical Student E/M Service A medical student performed and documented this service in my presence. I reviewed and verified all information documented by the medical student and made modifications to such information, when appropriate. I personally performed the physical exam and medical decision making. Fany Murillo, Feb 12, 2023,04:55 EMY GRECO Feb 11, 2023 08:46 FANY MURILLO DO Feb 12, 2023 04:56
[2023-02-11] MEDS: PANTOPRAZOLE 40 MG TABLET PO SCH (08:57)
[2023-02-11] MEDS: DOCUSATE SODIUM 100 MG CAPSULE PO SCH ×2 (08:58→21:06)
[2023-02-11] MEDS: SENNOSIDES 8.6 MG TABLET PO SCH ×2 (08:58→21:06)
[2023-02-11] MEDS: GABAPENTIN 100 MG CAPSULE PO SCH ×3 (08:58→21:05)
[2023-02-11] MEDS ORDERED: NON-FORMULARY MEDICATION 1 EA EA (Omeprazole 40 MG) PO SCH (09:00)
--- NOTE | 2023-02-11 10:01 | Progress Note - Cardiology ---
Cardiology SOAP Progress Note Subjective: No cp or palp or syncope Shortness of breath is better No n/v/d Chronic, intermittent rectal bleeding (bright red blood) Gen weakness No focal weakness Objective: I&O/Vital Signs 02/10/23 02/10/23 02/11/23 02/11/23 22:26 23:28 00:34 02:44 Temp 37.1 Pulse 97 100 103 Resp 20 B/P (MAP) 149/66 (93) Pulse Ox 94 O2 Delivery Nasal Cannula Nasal Cannula O2 Flow Rate 3.50 4.00 02/11/23 02/11/23 02/11/23 03:31 07:00 07:24 Temp 36.5 36.7 Pulse 94 96 87 Resp 20 20 B/P (MAP) 121/60 (80) 130/75 (93) Pulse Ox 90 94 O2 Delivery Nasal Cannula Nasal Cannula O2 Flow Rate 3.50 4.00 02/10/23 23:59 Intake Total 800 ml Output Total 2100 ml Balance -1300 ml Weight (Pounds): 212 Weight (Ounces): 7.0 Weight (Calculated Kilograms): 96.735878 Constitutional: AAO x 3, well-developed, well-nourished Respiratory: No accessory muscle use, No respiratory distress; chest expansion is symmetric, chest is bilaterally symmetric, other (diminished breath sounds) Cardiovascular: irregularly irregular; No JVD; S1 and S2 Gastrointestional: No tender; soft, round; No guarding; audible bowel sounds Extremities: No other Neurologic/Psychiatric: other (moves all extremities) Skin: No rash on exposed areas, No ulcerations on exposed areas Results/Procedures: Labs Laboratory Tests 02/10/23 11:34: Glucometer 179H 02/10/23 15:35: Glucometer 152H 02/10/23 20:35: Glucometer 230H 02/11/23 05:21: White Blood Count 5.4, Red Blood Count 3.07L, Hemoglobin 8.2L, Hematocrit 28L, Mean Corpuscular Volume 92, Mean Corpuscular Hemoglobin 27, Mean Corpuscular Hemoglobin Concent 29L, Red Cell Distribution Width 19.2H, Platelet Count 247, Mean Platelet Volume 10.1, Immature Granulocyte % (Auto) 0, Neutrophils (%) (Auto) 68, Lymphocytes (%) (Auto) 16, Monocytes (%) (Auto) 12, Eosinophils (%) (Auto) 3, Basophils (%) (Auto) 0, Neutrophils # (Auto) 3.7, Lymphocytes # (Auto) 0.9L, Monocytes # (Auto) 0.7, Eosinophils # (Auto) 0.2, Basophils # (Auto) 0.0, Immature Granulocyte # (Auto) 0.0, Sodium Level 143, Potassium Level 3.4L, Chloride Level 103, Carbon Dioxide Level 32, Anion Gap 8, Blood Urea Nitrogen 15, Creatinine 0.89, Estimat Glomerular Filtration Rate 63, BUN/Creatinine Ratio 17, Glucose Level 111H, Calcium Level 8.6, Corrected Calcium 9.2, Total Bilirubin 0.3, Aspartate Amino Transf (AST/SGOT) 12, Alanine Aminotransferase (ALT/SGPT) 8, Alkaline Phosphatase 130, Total Protein 6.8, Albumin 3.2 02/11/23 05:38: Glucometer 108 Laboratory Tests 02/09/23 13:20 02/10/23 04:42 02/11/23 05:21 A/P: Assessment: Acute on chronic systolic and diastolic CHF - echo on 02/10/23: LVEF 45-50%, enlargement of both atria and RV, mild to mod MR, mod to severe TR, AoV sclerosis w/o stenosis, small amout of pericardial fluid w/o evidence of hemodynamic significance, PASP 40-45 mmHg H/O ac resp failure, multifactorial: acute on ch CHF & cor pulmonale, marked anemia, probable obesity-hypovent/GER in November 2022 - for which she had a prolonged hospitalization at [facility] in [place], [place] Chronic CHF and cor pulmonale - 2D Echo done 01/27/[address] Barker showing mild diffuse hypokinesia with EF 45%. Dilated right and left atrium, moderate MR, severe TR. PA 75-80mmHg. Severe pulmonary hypertension with dilated right heart chambers. Chronic, blood-loss and anemia and chronic, recurrent GI bleed - Endoscopy of 03-25-[address] Manning showed Reflux esophagitis [place] grade B, moderate size hiatal hernia approximately 3 cm in size. Moderate gastritis. No active bleeding. Chronic between stage II to III external and internal hemorrhoids, moderate sigmoid diverticulosis. Again, no active bleed. Small hyperplastic polyp of the ascending colon. - Dr. Manning planning another endoscopy for eval and treatment of int h'hoids today Paroxysmal atrial fibrillation (currently a-fib with controlled rate) - twelve-lead EKG was done showing atrial fibrillation with right bundle branch block. - [id number] score 4, yearly risk of stroke without oral anticoagulation is 4%. - Previously on Eliquis 5mg BID for stroke prophylaxis (currently being held d/t marked anemia and suspected GI bleed requiring transfusion at [facility]) Pulmonary HTN - likely d/t obesity hypoventilation syndrome/GER GER - non-compliant with CPAP tx Generalized weakness - continue PT/OT Hypertension - controlled Hyperlipidemia - maintained on statin CKD 3a - monitored and managed by the [facility] [place] DM II - management per Medical services Peripheral neuropathy Chronic pain syndrome Plan: * Continue diuretic * Continue rate-contolling agents * Monitor labs * unable to tolerate OAC for reasons noted above in Assessment * Dr. Manning planning repeat endoscopy for eval and treatment of int h'hoids HARITHA ESPARZA MD FACP FAC CCDS Feb 11, 2023 10:01
--- NOTE | 2023-02-11 10:50 | Occupational Ther Daily Note ---
OT Current Status-Daily Note Subjective Agreeable to OT Mental Status/Objective Patient Orientation: Person, Place, Time, Situation ADL-Treatment Ambulated to lavatory for face/oral and hair grooming tasks. OT dons socks as patient has assistance for LB dressing at home Therapy Code Descriptions/Definitions Functional [place] Measure: 0=Not Assessed/NA 4=Minimal Assistance 1=Total Assistance 5=Supervision or Setup 2=Maximal Assistance 6=Modified [place] 3=Moderate Assistance 7=Complete IndependenceSCALE: Activities may be completed with or without assistive devices. 3-Vfrjccfbzx-yprsayq completes the activity by him/herself with no assistance from a helper. 5-Set-up or Clean-up Assistance-helper sets up or cleans up; patient completes activity. [place] assists only prior to or following the activity. 4-Supervision or Touching Assistance-helper provides verbal cues and/or touching/steadying and/or contact guard assistance as patient completes activity. Assistance may be provided throughout the activity or intermittently. 3-Partial/Moderate Assistance-helper does LESS THAN HALF the effort. [place] lifts, holds or supports trunk or limbs, but provides less than half the effort. 2-Substantial/Maximal Assistance-helper does MORE THAN HALF the effort. [place] lifts or holds trunk or limbs and provides more than half the effort. 8-Asxgxtmuz-wfyyqi does ALL the effort. Patient does none of the effort to complete the activity. Or, the assistance of 2 or more helpers is required for the patient to complete the activity. If activity was not attempted, code reason: 7-Patient Refused. 9-Not Applicable-not attempted and the patient did not perform the activity before the current illness, exacerbation or injury. 10-Not Attempted due to Environmental Limitations-(lack of equipment, weather restraints, etc.). 88-Not Attempted due to Medical Conditions or Safety Concerns. OT Visual Display Associate Goals Visual Display Associate Goals Eating (QC): 6 Oral Hygiene (QC): 6 Toileting Hygiene (QC): 5 Shower/Bathe Self (QC): 4 Upper Body Dressing (QC): 5 Lower Body Dressing (QC): 4 On/Off Footwear (QC): 3 1=Demonstrate adherence to instructed precautions during ADL tasks. 2=Patient will verbalize/demonstrate understanding of assistive devices/modifications for ADL. 3=Patient will improve strength/tolerance for activity to enable patient to perform ADL's. OT Education/Plan Treatment Plan/Plan of Care Patient would benefit from OT for education, treatment and training to promote independence in ADL's, mobility, safety and/or upper extremity function for ADL's. Plan of Care: ADL Retraining, Functional Mobility, Group Exercise/Act as Ind, UE Funct Exercise/Act, UE Neuromus Re-Ed/Coord Treatment Duration: Feb 13, 2023 Frequency: 3 times per week Estimated Hrs Per Day: .25 hour per day Agreement: Yes Rehab Potential: Fair DOC OGDEN OT Feb 11, 2023 10:50
[2023-02-11] MEDS: HYDROcodone/ACETAMINOPHEN 10/325 TABLET PO PRN ×2 (11:19→21:06)
--- NOTE | 2023-02-11 13:09 | Physical Therapy Daily Note ---
PT Daily Note-Current Subjective Patient sitting in chair upon PT arrival, agreeable to treatment. Patient rates pain at 6/10 in her legs. Pain Section J - Health Conditions 1. Rarely or not at all 2. Occasionally 3. Frequently 4. Almost constantly 8. Unable to answer Pain Effect on Sleep: 2 Pain Interference with Therapy: 3 Pain Interference w/Day-to-Day: 2 Transfers SCALE: Activities may be completed with or without assistive devices. 8-Qgzywkqshv-uuzuqkk completes the activity by him/herself with no assistance from a helper. 5-Set-up or Clean-up Assistance-helper sets up or cleans up; patient completes activity. [place] assists only prior to or following the activity. 4-Supervision or Touching Assistance-helper provides verbal cues and/or touching/steadying and/or contact guard assistance as patient completes activity. Assistance may be provided throughout the activity or intermittently. 3-Partial/Moderate Assistance-helper does LESS THAN HALF the effort. [place] lift s, holds or supports trunk or limbs, but provides less than half the effort. 2-Substantial/Maximal Assistance-helper does MORE THAN HALF the effort. [place] lifts or holds trunk or limbs and provides more than half the effort. 2-Dlbnirkjs-nlyjcc does ALL the effort. Patient does none of the effort to complete the activity. Or, the assistance of 2 or more helpers is required for the patient to complete the activity. If activity was not attempted, code reason: 7-Patient Refused. 9-Not Applicable-not attempted and the patient did not perform the activity before the current illness, exacerbation or injury. 10-Not Attempted due to Environmental Limitations-(lack of equipment, weather restraints, etc.). 88-Not Attempted due to Medical Conditions or Safety Concerns. Sit to Stand (QC): 3 Chair/Kdi-uf-Ukdux Xfer(QC): 3 Weight Bearing Right Lower Extremity: Right Full Weight Bearing Left Lower Extremity: Left Full Weight Bearing Gait Training Does the Patient Walk?: Yes Distance: 150' Walk 10 feet (QC): 4 Walk 50 ft with 2 Turns(QC): 4 Walk 150 ft (QC): 3 Gait Persons Needed: 1 Gait Assistive Device: FWW Assessment Current Status: Fair Progress Patient tolerated treatment well. Performs all observed transfers with min a. Patient ambulates 150 feet with FWW, with CGA/Min A and verbal cues for safety, progression, posture and conservation of energy. Patient in chair post treatment with all needs met, nursing notified, call light in hand. PT Cake Inspector Goals Cake Inspector Goals PT Cake Inspector Goals Time Frame: Feb 21, 2023 Roll Left & Right (QC): 6 Sit to Lying (QC): 6 Lying-Sitting on Side/Bed(QC): 6 Sit to Stand (QC): 6 Chair/Mub-hf-Dgwzn Xfer(QC): 6 Toilet Transfer (QC): 6 Walk 10 feet (QC): 6 Walk 50ft with 2 Turns (QC): 6 Walk 150 ft (QC): 6 PT Plan Treatment/Plan Treatment Plan: Continue Plan of Care Treatment Plan: Bed Mobility, Education, Functional Activity Patricia, Functional Strength, Gait, Safety, Therapeutic Exercise, Transfers Treatment Duration: Feb 21, 2023 Frequency: 5 times per week Estimated Hrs Per Day: .25 hour per day Safety Risks/Education Patient Education: Gait Training, Transfer Techniques Teaching Recipient: Patient Teaching Methods: Demonstration, Discussion Response to Teaching: Verbalize Understanding, Return Demonstration Time Time In: 1056 Time Out: 1106 DATE: Feb 11, 2023 Total Billed Treatment Time: 10 Total Billed Treatment Visit, GT ELIJAH OLIVIER PT Feb 11, 2023 13:09
[2023-02-11] MEDS ORDERED: LACTATED RINGERS 1,000 ML 1,000 ML IV STA (15:41)
[2023-02-11] MEDS ORDERED: LACTATED RINGERS 1,000 ML 1,000 ML IV ONE (15:45)
--- NOTE | 2023-02-11 17:33 | Progress Note-Post Operative ---
Post-Operative Progess Note Surgeon (s)/Pipe And Boiler Covers Supervisor (s) Surgeon LISSA GENAO MD Pipe And Boiler Covers Supervisor: none Pre-Operative Diagnosis sx rectal bleed with hx stage 3 int hemorrhoids. Post-Operative Diagnosis same Procedure & Operative Findings Date of Procedure 02/11/23 Procedure Performed/Findings internal hemorrhoidal cushion banding x3 (using total 5 bands), pudendal nerve block. Anesthesia Type mac, pudendal nerve block Estimated Blood Loss Estimated blood loss (mL): minimal Specimens/Packing Specimens Removed none LISSA GENAO MD Feb 11, 2023 17:33
--- NOTE | 2023-02-11 17:35 | Anesthesia-General Post-Op ---
MAC Patient Condition Mental Status/LOC: Same as Preop Cardiovascular: Satisfactory Nausea/Vomiting: Absent Respiratory: Satisfactory Pain: Controlled Complications: Absent Post Op Complications Complications None Follow Up Care/Instructions Patient Instructions None needed. Anesthesiology Discharge Order Discharge Order Patient is doing well, no complaints, stable vital signs, no apparent adverse anesthesia problems. No complications reported per nursing. KALA KEN CRNA Feb 11, 2023 17:35
[2023-02-11] MEDS: rOPINIRole 0.25 MG TABLET PO SCH (21:06)
[2023-02-11] MEDS: CITALOPRAM 20 MG TABLET PO SCH (21:06)
[2023-02-11] MEDS: inSUlin DETERMIR 1 UNIT/0.01 ML (CHARGE PER UNIT) SQ SCH (21:07)
[2023-02-12] MEDS: RT-Ipratropium/Albuterol NEB 3 ML VIAL INH SCH ×2 (02:57→09:44)
--- NOTE | 2023-02-12 03:01 | OPERATIVE REPORT ---
DATE OF SERVICE: 02/11/2023 ATTENDING PRIMARY CARE PHYSICIAN:Nena Figueroa MD ADMITTING PHYSICIAN: Fany Cuevas DO PREOPERATIVE DIAGNOSIS: Symptomatic stage III internal hemorrhoidal bleeding. POSTOPERATIVE DIAGNOSIS: Symptomatic stage III internal hemorrhoidal bleeding. PROCEDURE: Anal exam under anesthesia, pudendal nerve block, internal hemorrhoidal cushion banding x3. SURGEON: Lissa Genao MD ANESTHESIA: Monitored anesthesia care with pudendal nerve block. ESTIMATED BLOOD LOSS: Minimal. FINDINGS: All 3 internal hemorrhoidal cushions stage III or higher with signs of inflammation, irritation as well as recent bleeding. DISPOSITION: The patient tolerated the procedure well. INDICATIONS: The patient is an 87-year-old female known to us. She has had a longstanding history of rectal bleeding and a known history of stage III external and internal hemorrhoids. She also has had multiple issues with symptomatic anemia requiring blood transfusions. She does also have a history of atrial fibrillation, congestive heart failure and is on anticoagulation with Xarelto. The patient presented with weakness and shortness of breath as well as lower extremity edema. The patient again was found to be anemic and again reports that she has had rectal bleeding on an intermittent basis with bowel movements. While she is here on this admission, the goal was to proceed with an anal exam under MAC anesthesia and pudendal nerve block and internal hemorrhoidal cushion banding. DESCRIPTION OF PROCEDURE: The patient was brought to the endoscopy suite and laid in the left lateral decubitus position. After adequate IV pain and sedative medications and monitored anesthesia care, a digital rectal examination was performed. Chronic stage III external and internal hemorrhoids were identified with the internal hemorrhoidal cushions edematous and inflamed as well as ulcerations consistent with recent hemorrhoidal bleeding. Normal sphincter tone was felt and there were no palpable masses. We then proceeded with a pudendal nerve block using 1% lidocaine anesthetizing the pudendal nerve approximately 1 cm below the ischial tuberosity bilaterally. Once the anal sphincters relaxed, the anoscope was placed. The 3 internal hemorrhoidal cushions were identified and we proceeded with systematic banding of the internal hemorrhoidal cushions. Due to the size of the lesions, we banded each hemorrhoidal cushion with 2 rubber bands side by side. We continued to do this in a circumferential manner, banding all 3 internal hemorrhoidal cushions. A digital rectal examination was performed with 2 finger breadths with no stricturing identified. Good hemostasis was also observed. The anus was then cleaned and then 4 x 4 gauze placed in the area of the external anus. The patient tolerated the procedure well. We will recommend a high-fiber diet with addition of a fiber supplement, which should equal or exceed 25-30 grams daily to promote soft stools on a daily basis. Also, we explained to the patient that she will have mucosal sloughing as well as bleeding on an intermittent basis, which would be the mechanism of banding of the hemorrhoids and promoting necrosis and eventual scarring in hopes of preventing further dilatation and bleeding of the internal hemorrhoidal cushions once the healing process has completed. Job ID: [id number] DocumentID: [id number] Dictated Date: 02/11/2023 17:18:43 Drama Professor Date: 02/12/2023 02:59:00 Dictated By: LISSA GENAO MD MTDD
[2023-02-12 03:27] VITALS: BP 133/68
[2023-02-12] MEDS: FUROSEMIDE INJECTION 40 MG/4 ML VIAL IVP SCH (06:11)
[2023-02-12] MEDS: POTASSIUM CHLORIDE 20 MEQ TABLET PO SCH (06:12)
[2023-02-12] MEDS: HYDROcodone/ACETAMINOPHEN 10/325 TABLET PO PRN (06:12)
[2023-02-12] MEDS: inSUlin ASPART 1 UNIT/0.01 ML (PER UNIT) SC SCH ×2 (06:12→11:45)
[2023-02-12 06:14] LABS: ALBUMIN 3.5 GM/DL (3.2-4.5); BASOPHILS % (AUTO) 0 % (0-10); EOSINOPHILS # (AUTO) 0.1 10^3/uL (0.0-0.3); EOSINOPHILS % (AUTO) 2 % (0-10); HEMATOCRIT 31 % (35-52); HEMOGLOBIN 8.9 g/dL (11.5-16.0); LYMPHOCYTES # (AUTO) 0.6 10^3/uL (1.0-4.0); LYMPHOCYTES % (AUTO) 8 % (12-44); MEAN CORPUSCULAR HEMOGLOBIN 26 pg (25-34); MEAN CORPUSCULAR HGB CONC 28 g/dL (32-36); MEAN CORPUSCULAR VOLUME 93 fL (80-99); MONOCYTES # (AUTO) 0.7 10^3/uL (0.0-1.0); MONOCYTES % (AUTO) 9 % (0-12); NEUTROPHILS # (AUTO) 5.8 10^3/uL (1.8-7.8); NEUTROPHILS % (AUTO) 80 % (42-75); PLATELET COUNT 249 10^3/uL (130-400); POTASSIUM 3.6 MMOL/L (3.6-5.0); WHITE BLOOD COUNT 7.3 10^3/uL (4.3-11.0)
[2023-02-12 06:15] LABS: CALCIUM 9.1 MG/DL (8.5-10.1)
[2023-02-12 06:16] LABS: TOTAL PROTEIN 7.4 GM/DL (6.4-8.2)
[2023-02-12 06:18] LABS: BILIRUBIN,TOTAL 0.4 MG/DL (0.1-1.0)
[2023-02-12 06:20] LABS: CREATININE SERUM 1.04 MG/DL (0.60-1.30)
[2023-02-12 07:19] VITALS: BP 138/64
--- NOTE | 2023-02-12 08:00 | Progress Note ---
EMY GRECO 02/12/23 0800: Subjective Date Seen by a Provider: Feb 12, 2023 Time Seen by a Provider: 07:59 Subjective/Events-last exam Pt is doing very well today and notes that she feels close to her baseline. She had not yet walked with PT yet but she was supposed to this morning. Yesterday, she had banding done by Dr. Manning for internal hemorrhoids. Hgb is at 8.9 today, it was 8.2 yest. She would like to know when she can go home. Hospital course: Pt is an 87 y/o female with pmhx of COPD on O2, CHF, Afib, and GI bleed on Eliquis who presented to the ER 02/10/23 with increasing SOB and weight gain with swelling in abd, pelvis, and b/l LEs. She wears O2 4L at home at all times. She stated that for the last month she has gained ~23lbs and her SOB with swelling started getting much worse a few days ago. She received Lasix in the ER and she is now on IV Lasix 40 mg BID. Her nurse reports a lot of fluid came off- 1700 cc in 12 hrs. She continued to get IV Lasix, breathing treatments, and pain control meds. While here, seen by Dr. Manning for recurrent anemia and banding of internal hemorrhoids. Got banding done 02/11/23. Worked with therapy to get up and moving and now feels close to baseline. Will DC with home health orders and f/u with Dr. Figueroa. Review of Systems General: No Chills, No Night Sweats HEENT: No Head Aches, No Visual Changes Pulmonary: Dyspnea; No Cough, No Pleuritic Chest Pain Cardiovascular: Orthopnea; No: Chest Pain, Palpitations Gastrointestinal: No: Nausea, Vomiting, Abdominal Pain, Constipation Genitourinary: No Dysuria, No Frequency Musculoskeletal: No: neck pain, arm pain Neurological: No: Change in speech, Confusion Objective Exam Last Set of Vital Signs Vital Signs Date Time Temp Pulse Resp B/P (MAP) Pulse Ox O2 Delivery O2 Flow Rate FiO2 02/12/23 07:19 36.6 100 20 138/64 (88) 95 Nasal Cannula 3.50 02/09/23 17:11 36 Capillary Refill : I&O Intake and Output 02/11/23 23:59 Intake Total 600 ml Output Total 1925 ml Balance -1325 ml Intake Oral 600 ml Output Urine Total 1925 ml # Bowel Movements 2 General: Alert, Oriented X3, Cooperative, No Acute Distress HEENT: Atraumatic Neck: Supple, No Thyromegaly Lungs: Other (wheezing b/l) Heart: Regular Rate Abdomen: Normal Bowel Sounds, Soft, No Tenderness Extremities: Other (diminished pulses b/l +1 in dorsalis pedis and tenderness to LE b/l. ) Skin: No Breakdown, No Significant Lesion Neuro: Normal Speech, Sensation Intact Psych/Mental Status: Mental Status NL, Mood NL Results Lab Laboratory Tests 02/11/23 10:10: Glucometer 87 02/11/23 20:27: Glucometer 117H 02/12/23 05:25: Glucometer 230H 02/12/23 05:48: White Blood Count 7.3, Red Blood Count 3.37L, Hemoglobin 8.9L, Hematocrit 31L, Mean Corpuscular Volume 93, Mean Corpuscular Hemoglobin 26, Mean Corpuscular Hemoglobin Concent 28L, Red Cell Distribution Width 19.2H, Platelet Count 249, Mean Platelet Volume 10.0, Immature Granulocyte % (Auto) 0, Neutrophils (%) (Auto) 80H, Lymphocytes (%) (Auto) 8L, Monocytes (%) (Auto) 9, Eosinophils (%) (Auto) 2, Basophils (%) (Auto) 0, Neutrophils # (Auto) 5.8, Lymphocytes # (Auto) 0.6L, Monocytes # (Auto) 0.7, Eosinophils # (Auto) 0.1, Basophils # (Auto) 0.0, Immature Granulocyte # (Auto) 0.0, Sodium Level 139, Potassium Level 3.6, Chloride Level 100, Carbon Dioxide Level 29, Anion Gap 10, Blood Urea Nitrogen 16, Creatinine 1.04, Estimat Glomerular Filtration Rate 53, BUN/Creatinine Ratio 15, Glucose Level 237H, Calcium Level 9.1, Corrected Calcium 9.5, Total Bilirubin 0.4, Aspartate Amino Transf (AST/SGOT) 14, Alanine Aminotransferase (ALT/SGPT) 8, Alkaline Phosphatase 137H, Total Protein 7.4, Albumin 3.5 Assessment/Plan Assessment/Plan Assess & Plan/Chief Complaint Acute on chronic systolic CHF Chronic CHF and cor pulmonale GER, noncompliant with CPAP - Continue Lasix orally at home - O2 nasal cannula at 4 L (baseline) - Duoneb - Chest x-ray 02/09/23- Cardiomegaly with sequela of CHF including probable interstitial pulmonary edema. - Echo 01/27/[address] Barker showing mild diffuse hypokinesia with EF 45%. Dilated right and left atrium, moderate MR, severe TR. PA 75-80mmHg. Severe pulmonary hypertension with dilated right heart chambers. - Echocardiogram at [facility] by Dr. Corona is reported to show severe TR with elevated PASP (report not available) - K low at 3.4 yest, is 3.6 today Paroxysmal atrial fibrillation - Rate controlled - EKG was done showing atrial fibrillation with right bundle branch block. - Previously on Eliquis 5mg BID for stroke prophylaxis (currently being held d/t marked anemia and suspected GI bleed requiring transfusion at [facility]) Hx of anemia - Hgb improved to 8.9 today, was 8.2 yest - Had internal hemorhoid banding w/ Dr. Manning yest - General surgery following appreciate recommendations CKD - Creatinine today is 1.04 IDDM - Sliding scale insulin Clinical Quality Measures Admission Status Admission Dx Acute on chronic systolic CHF Chronic CHF and cor pulmonale GER, noncompliant with CPAP - Continue IV Lasix 40 mg BID. - O2 nasal cannula at 4 L (baseline) - Duoneb - Chest x-ray 02/09/23- Cardiomegaly with sequela of CHF including probable interstitial pulmonary edema. - Elevated BNP at 288.3 yesterday - Echo 01/27/[address] Barker showing mild diffuse hypokinesia with EF 45%. Dilated right and left atrium, moderate MR, severe TR. PA 75-80mmHg. Severe pulmonary hypertension with dilated right heart chambers. - Echocardiogram at [facility] by Dr. Corona is reported to show severe TR with elevated PASP (report not available) - Move down to fourth today Paroxysmal atrial fibrillation - Rate controlled - EKG was done showing atrial fibrillation with right bundle branch block. - Previously on Eliquis 5mg BID for stroke prophylaxis (currently being held d/t marked anemia and suspected GI bleed requiring transfusion at [facility]) Hx of anemia - Hgb today is 9, yesterday it was 8.2 - Endoscopy 03-25-[address] Kido showed reflux esophagitis, moderate size hiatal hernia approximately 3 cm in size. Moderate gastritis. No active bleeding. Chronic between stage II to III external and internal hemorrhoids, moderate sigmoid diverticulosis. Again, no active bleed. Small hyperplastic polyp of the ascending colon. - Recurrent GI bleed suspected and is being followed by PCP - Consult Dr. Manning CKD - Creatinine today is 1.09 which is close to baseline IDDM - Sliding scale insulin FANY MURILLO DO 02/12/232043: Supervisory-Addendum Brief Verification & Attestation Participated in pt care: history, MDM, physical Personally performed: exam, history, MDM, supervision of care Care discussed with: Medical Student Procedures: n/a Results interpretation: Verified all documentation Verification and Attestation of Medical Student E/M Service A medical student performed and documented this service in my presence. I reviewed and verified all information documented by the medical student and made modifications to such information, when appropriate. I personally performed the physical exam and medical decision making. Fany Murillo Feb 12, 2023,20:44 EMY GRECO Feb 12, 2023 08:00 FANY MURILLO DO Feb 12, 2023 20:44
[2023-02-12] MEDS: GABAPENTIN 100 MG CAPSULE PO SCH ×2 (08:43→13:22)
[2023-02-12] MEDS: PANTOPRAZOLE 40 MG TABLET PO SCH (08:43)
[2023-02-12] MEDS: SENNOSIDES 8.6 MG TABLET PO SCH (08:45)
[2023-02-12] MEDS: DOCUSATE SODIUM 100 MG CAPSULE PO SCH (08:45)
--- NOTE | 2023-02-12 10:05 | Progress Note - Cardiology ---
Cardiology SOAP Progress Note Subjective: Sitting up in recliner Feels breathing is much better States had hemorrhoid banding last night by Dr. Manning Objective: I&O/Vital Signs Weight (Pounds): 212 Weight (Ounces): 7.0 Weight (Calculated Kilograms): 96.472402 Constitutional: AAO x 3, well-developed, well-nourished Respiratory: No accessory muscle use, No respiratory distress; chest expansion is symmetric, chest is bilaterally symmetric, other (diminished breath sounds) Cardiovascular: irregularly irregular; No JVD; S1 and S2 Gastrointestional: No tender; soft, round; No guarding; audible bowel sounds Extremities: other (bilat LE swelling) Neurologic/Psychiatric: other (moves all extremities) Skin: No rash on exposed areas, No ulcerations on exposed areas Results/Procedures: Labs A/P: Assessment: Acute on chronic systolic and diastolic CHF - echo on 02/10/23: LVEF 45-50%, enlargement of both atria and RV, mild to mod MR, mod to severe TR, AoV sclerosis w/o stenosis, small amout of pericardial fluid w/o evidence of hemodynamic significance, PASP 40-45 mmHg H/O ac resp failure, multifactorial: acute on ch CHF & cor pulmonale, marked anemia, probable obesity-hypovent/GER in November 2022 - for which she had a prolonged hospitalization at [facility] in [place], [place] Chronic CHF and cor pulmonale - 2D Echo done 01/27/[address] Barker showing mild diffuse hypokinesia with EF 45%. Dilated right and left atrium, moderate MR, severe TR. PA 75-80mmHg. Severe pulmonary hypertension with dilated right heart chambers. Chronic, blood-loss and anemia and chronic, recurrent GI bleed - Endoscopy of 03-25-[address] Manning showed Reflux esophagitis [place] grade B, moderate size hiatal hernia approximately 3 cm in size. Moderate gastritis. No active bleeding. Chronic between stage II to III external and internal hemorrhoids, moderate sigmoid diverticulosis. Again, no active bleed. Small hyperplastic polyp of the ascending colon. - s/p hemorrhoid banding by Dr. Manning on 02-11-23 Paroxysmal atrial fibrillation (currently a-fib with controlled rate) - twelve-lead EKG was done showing atrial fibrillation with right bundle branch block. - [id number] score 4, yearly risk of stroke without oral anticoagulation is 4%. - Previously on Eliquis 5mg BID for stroke prophylaxis (currently being held d/t marked anemia and suspected GI bleed requiring transfusion at [facility]) Pulmonary HTN - likely d/t obesity hypoventilation syndrome/GER GER - non-compliant with CPAP tx Generalized weakness - continue PT/OT Hypertension - controlled Hyperlipidemia - maintained on statin CKD 3a - [facility] management per Medical services Peripheral neuropathy Chronic pain syndrome Plan: * Continue diuretic * Continue rate-contolling agents * Monitor labs * unable to tolerate OAC for reasons noted above in Assessment * s/p endoscopy with treatment for hemorrhoids last night * transition to oral lasix SB REDDY Feb 12, 2023 10:05
[2023-02-12 11:13] VITALS: BP 119/56
--- NOTE | 2023-02-12 12:07 | D/C HH Face to Face Order ---
D/C Face to Face Orders Reconcile Patient Problems Problems Reviewed?: Yes Instructions for Patient Via [facility], Patient Instructions/FollowUp: PCP 1 week Physician to follow Patient: [place] Discharge Diet for Home: No Restrictions Patient Problems: debiity Patient Data-Allergies,Ht & Wt Patient Allergies: Coded Allergies: No Known Drug Allergies (Unverified , 10/10/22) Height (Feet): 5 Height (Inches): 8.00 Weight (Pounds): 212 Weight (Ounces): 7.0 Home Health Need/Face to Face Date of Face to Face: Feb 12, 2023 Clinical Findings: Generalized weakness and fatigue, Instability, Muscle weakness I have seen Pt [id number]: Yes Discharged To: Home Diagnosis/Conditions: debility Patient is Homebound due to: [place] fall risk due to instabilty, Muscle weakness Homebound Status Due to the above stated illness, injury or surgical procedure (medical condition or diagnosis) and associated clinical findings, the patient is homebound because of his/her inability to leave home except with aid of a supportive device and/or person AND leaving the home requires a considerable and taxing effort or is medically contraindicated. Pt req the following assistanc: [facility] Nursing Orders Home Health Services Order: Nursing Services, Scheduling Representative-Evaluate & Treat, Physical Therapy-Evaluate & Treat Home Health Infusion Therapy Line Start Date: Feb 09, 2023 Certify Stmt I certify that this patient is under my care and that I, a nurse practitioner or a physician; a business services assistant working with me, had a face to face encounter that - meets the physician face to face encounter requirements with this patient as dated. JACKY MURILLO DO Feb 12, 2023 12:07
--- NOTE | 2023-02-12 12:08 | Discharge Summary ---
Diagnosis/Chief Complaint Date of Admission Feb 09, 2023 at 16:23 Date of Discharge Discharge Date: Feb 12, 2023 Discharge Diagnosis Assess & Plan/Chief Complaint Acute on chronic systolic CHF Chronic CHF and cor pulmonale GER, noncompliant with CPAP - Continue Lasix orally at home - O2 nasal cannula at 4 L (baseline) - Duoneb - Chest x-ray 02/09/23- Cardiomegaly with sequela of CHF including probable interstitial pulmonary edema. - Echo 01/27/[address] Barker showing mild diffuse hypokinesia with EF 45%. Dilated right and left atrium, moderate MR, severe TR. PA 75-80mmHg. Severe pulmonary hypertension with dilated right heart chambers. - Echocardiogram at [facility] by Dr. Corona is reported to show severe TR with elevated PASP (report not available) - K low at 3.4 yest, is 3.6 today Paroxysmal atrial fibrillation - Rate controlled - EKG was done showing atrial fibrillation with right bundle branch block. - Previously on Eliquis 5mg BID for stroke prophylaxis (currently being held d/t marked anemia and suspected GI bleed requiring transfusion at [facility]) Hx of anemia - Hgb improved to 8.9 today, was 8.2 yest - Had internal hemorhoid banding w/ Dr. Manning yest - General surgery following appreciate recommendations CKD - Creatinine today is 1.04 IDDM - Sliding scale insulin Reason Hospital Visit Chief complaint: Weakness with CHF exacerbation HPI: This is an 87-year-old female scented in the ER with shortness of breath found to have volume overload and congestive heart failure. Cardiology has been consulted. He remains stable and we will move down to fourth floor. Discharge Summary Discharge Physical Examination Allergies: Coded Allergies: No Known Drug Allergies (Unverified , 10/10/22) Vitals & I&Os Vital Signs Date Time Temp Pulse Resp B/P (MAP) Pulse Ox O2 Delivery O2 Flow Rate FiO2 02/12/23 13:56 36.8 96 18 119/56 98 Nasal Cannula 3.50 02/09/23 17:11 36 General Appearance: Alert, Oriented X3, Cooperative Respiratory: Clear to Auscultation Cardiovascular: Regular Rate Psych/Mental Status: Mental Status NL Hospital Course Was the Problem List Reviewed?: Yes Hospital course: Pt is an 87 y/o female with pmhx of COPD on O2, CHF, Afib, and GI bleed on Eliquis who presented to the ER 02/10/23 with increasing SOB and weight gain with swelling in abd, pelvis, and b/l LEs. She wears O2 4L at home at all times. She stated that for the last month she has gained ~23lbs and her SOB with swelling started getting much worse a few days ago. She received Lasix in the ER and she is now on IV Lasix 40 mg BID. Her nurse reports a lot of fluid came off- 1700 cc in 12 hrs. She continued to get IV Lasix, breathing treatments, and pain control meds. While here, seen by Dr. Manning for recurrent anemia and banding of internal hemorrhoids. Got banding done 02/11/23. Worked with therapy to get up and moving and now feels close to baseline. Will DC with home health orders and f/u with Dr. Figueroa. Labs (last 24 hrs) Laboratory Tests 02/09/23 13:20: White Blood Count 6.6, Red Blood Count 3.37L, Hemoglobin 9.0L, Hematocrit 32L, Mean Corpuscular Volume 94, Mean Corpuscular Hemoglobin 27, Mean Corpuscular Hemoglobin Concent 28L, Red Cell Distribution Width 19.3H, Platelet Count 258, Mean Platelet Volume 10.3, Immature Granulocyte % (Auto) 0, Neutrophils (%) (Auto) 74, Lymphocytes (%) (Auto) 13, Monocytes (%) (Auto) 10, Eosinophils (%) (Auto) 2, Basophils (%) (Auto) 0, Neutrophils # (Auto) 4.9, Lymphocytes # (Auto) 0.9L, Monocytes # (Auto) 0.7, Eosinophils # (Auto) 0.2, Basophils # (Auto) 0.0, Immature Granulocyte # (Auto) 0.0, Sodium Level 140, Potassium Level 3.9, Chloride Level 101, Carbon Dioxide Level 30, Anion Gap 9, Blood Urea Nitrogen 16, Creatinine 1.07, Estimat Glomerular Filtration Rate 51, BUN/Creatinine Ratio 15, Glucose Level 132H, Calcium Level 9.0, Corrected Calcium 9.4, Magnesium Level 2.4, Total Bilirubin 0.4, Aspartate Amino Transf (AST/SGOT) 17, Alanine Aminotransferase (ALT/SGPT) 8, Alkaline Phosphatase 125, B-Type Natriuretic Peptide 288.3H, Total Protein 7.4, Albumin 3.5 02/09/23 20:58: Glucometer 130H 02/10/23 04:42: White Blood Count 5.9, Red Blood Count 3.10L, Hemoglobin 8.2L, Hematocrit 29L, Mean Corpuscular Volume 92, Mean Corpuscular Hemoglobin 27, Mean Corpuscular Hemoglobin Concent 29L, Red Cell Distribution Width 19.3H, Platelet Count 239, Mean Platelet Volume 10.2, Immature Granulocyte % (Auto) 0, Neutrophils (%) (Auto) 68, Lymphocytes (%) (Auto) 18, Monocytes (%) (Auto) 11, Eosinophils (%) (Auto) 2, Basophils (%) (Auto) 1, Neutrophils # (Auto) 4.0, Lymphocytes # (Auto) 1.1, Monocytes # (Auto) 0.7, Eosinophils # (Auto) 0.1, Basophils # (Auto) 0.0, Immature Granulocyte # (Auto) 0.0, Sodium Level 141, Potassium Level 3.7, Chloride Level 101, Carbon Dioxide Level 32, Anion Gap 8, Blood Urea Nitrogen 16, Creatinine 1.09, Estimat Glomerular Filtration Rate 50, BUN/Creatinine Ratio 15, Glucose Level 153H, Calcium Level 8.6, Corrected Calcium 9.2, Magnesium Level 2.3, Total Bilirubin 0.3, Aspartate Amino Transf (AST/SGOT) 14, Alanine Aminotransferase (ALT/SGPT) 8, Alkaline Phosphatase 121, Total Protein 6.8, Albumin 3.2, Iron Level 18L, Vitamin B12 Level 338 02/10/23 11:34: Glucometer 179H 02/10/23 15:35: Glucometer 152H 02/10/23 20:35: Glucometer 230H 02/11/23 05:21: White Blood Count 5.4, Red Blood Count 3.07L, Hemoglobin 8.2L, Hematocrit 28L, Mean Corpuscular Volume 92, Mean Corpuscular Hemoglobin 27, Mean Corpuscular Hemoglobin Concent 29L, Red Cell Distribution Width 19.2H, Platelet Count 247, Mean Platelet Volume 10.1, Immature Granulocyte % (Auto) 0, Neutrophils (%) (Auto) 68, Lymphocytes (%) (Auto) 16, Monocytes (%) (Auto) 12, Eosinophils (%) (Auto) 3, Basophils (%) (Auto) 0, Neutrophils # (Auto) 3.7, Lymphocytes # (Auto) 0.9L, Monocytes # (Auto) 0.7, Eosinophils # (Auto) 0.2, Basophils # (Auto) 0.0, Immature Granulocyte # (Auto) 0.0, Sodium Level 143, Potassium Level 3.4L, Chloride Level 103, Carbon Dioxide Level 32, Anion Gap 8, Blood Urea Nitrogen 15, Creatinine 0.89, Estimat Glomerular Filtration Rate 63, BUN/Creatinine Ratio 17, Glucose Level 111H, Calcium Level 8.6, Corrected Calcium 9.2, Total Bilirubin 0.3, Aspartate Amino Transf (AST/SGOT) 12, Alanine Aminotransferase (ALT/SGPT) 8, Alkaline Phosphatase 130, Total Protein 6.8, Albumin 3.2 02/11/23 05:38: Glucometer 108 02/11/23 10:10: Glucometer 87 02/11/23 20:27: Glucometer 117H 02/12/23 05:25: Glucometer 230H 02/12/23 05:48: White Blood Count 7.3, Red Blood Count 3.37L, Hemoglobin 8.9L, Hematocrit 31L, Mean Corpuscular Volume 93, Mean Corpuscular Hemoglobin 26, Mean Corpuscular He moglobin Concent 28L, Red Cell Distribution Width 19.2H, Platelet Count 249, Mean Platelet Volume 10.0, Immature Granulocyte % (Auto) 0, Neutrophils (%) (Auto) 80H, Lymphocytes (%) (Auto) 8L, Monocytes (%) (Auto) 9, Eosinophils (%) (Auto) 2, Basophils (%) (Auto) 0, Neutrophils # (Auto) 5.8, Lymphocytes # (Auto) 0.6L, Monocytes # (Auto) 0.7, Eosinophils # (Auto) 0.1, Basophils # (Auto) 0.0, Immature Granulocyte # (Auto) 0.0, Sodium Level 139, Potassium Level 3.6, Chloride Level 100, Carbon Dioxide Level 29, Anion Gap 10, Blood Urea Nitrogen 16, Creatinine 1.04, Estimat Glomerular Filtration Rate 53, BUN/Creatinine Ratio 15, Glucose Level 237H, Calcium Level 9.1, Corrected Calcium 9.5, Total Bilirubin 0.4, Aspartate Amino Transf (AST/SGOT) 14, Alanine Aminotransferase (ALT/SGPT) 8, Alkaline Phosphatase 137H, Total Protein 7.4, Albumin 3.5 02/12/23 10:13: Glucometer 200H Pending Labs Laboratory Tests 02/09/23 13:20: White Blood Count 6.6, Red Blood Count 3.37, Hemoglobin 9.0, Hematocrit 32, Mean Corpuscular Volume 94, Mean Corpuscular Hemoglobin 27, Mean Corpuscular H emoglobin Concent 28, Red Cell Distribution Width 19.3, Platelet Count 258, Mean Platelet Volume 10.3, Immature Granulocyte % (Auto) 0, Neutrophils (%) (Auto) 74, Lymphocytes (%) (Auto) 13, Monocytes (%) (Auto) 10, Eosinophils (%) (Auto) 2, Basophils (%) (Auto) 0, Neutrophils # (Auto) 4.9, Lymphocytes # (Auto) 0.9, Monocytes # (Auto) 0.7, Eosinophils # (Auto) 0.2, Basophils # (Auto) 0.0, Immature Granulocyte # (Auto) 0.0, Sodium Level 140, Potassium Level 3.9, Chloride Level 101, Carbon Dioxide Level 30, Anion Gap 9, Blood Urea Nitrogen 16, Creatinine 1.07, Estimat Glomerular Filtration Rate 51, BUN/Creatinine Ratio 15, Glucose Level 132, Calcium Level 9.0, Corrected Calcium 9.4, Magnesium Level 2.4, Total Bilirubin 0.4, Aspartate Amino Transf (AST/SGOT) 17, Alanine Aminotransferase (ALT/SGPT) 8, Alkaline Phosphatase 125, B-Type Natriuretic Peptide 288.3, Total Protein 7.4, Albumin 3.5 02/09/23 20:58: Glucometer 130 02/10/23 04:42: White Blood Count 5.9, Red Blood Count 3.10, Hemoglobin 8.2, Hematocrit 29, Mean Corpuscular Volume 92, Mean Corpuscular Hemoglobin 27, Mean Corpuscular Hemoglobin Concent 29, Red Cell Distribution Width 19.3, Platelet Count 239, Mean Platelet Volume 10.2, Immature Granulocyte % (Auto) 0, Neutrophils (%) (Auto) 68, Lymphocytes (%) (Auto) 18, Monocytes (%) (Auto) 11, Eosinophils (%) (Auto) 2, Basophils (%) (Auto) 1, Neutrophils # (Auto) 4.0, Lymphocytes # (Auto) 1.1, Monocytes # (Auto) 0.7, Eosinophils # (Auto) 0.1, Basophils # (Auto) 0.0, Immature Granulocyte # (Auto) 0.0, Sodium Level 141, Potassium Level 3.7, Chloride Level 101, Carbon Dioxide Level 32, Anion Gap 8, Blood Urea Nitrogen 16, Creatinine 1.09, Estimat Glomerular Filtration Rate 50, BUN/Creatinine Ratio 15, Glucose Level 153, Calcium Level 8.6, Corrected Calcium 9.2, Magnesium Level 2.3, Total Bilirubin 0.3, Aspartate Amino Transf (AST/SGOT) 14, Alanine Am inotransferase (ALT/SGPT) 8, Alkaline Phosphatase 121, Total Protein 6.8, Albumin 3.2, Iron Level 18, Vitamin B12 Level 338 02/10/23 11:34: Glucometer 179 02/10/23 15:35: Glucometer 152 02/10/23 20:35: Glucometer 230 02/11/23 05:21: White Blood Count 5.4, Red Blood Count 3.07, Hemoglobin 8.2, Hematocrit 28, Mean Corpuscular Volume 92, Mean Corpuscular Hemoglobin 27, Mean Corpuscular Hemoglobin Concent 29, Red Cell Distribution Width 19.2, Platelet Count 247, Mean Platelet Volume 10.1, Immature Granulocyte % (Auto) 0, Neutrophils (%) (Auto) 68, Lymphocytes (%) (Auto) 16, Monocytes (%) (Auto) 12, Eosinophils (%) (Auto) 3, Basophils (%) (Auto) 0, Neutrophils # (Auto) 3.7, Lymphocytes # (Auto) 0.9, Monocytes # (Auto) 0.7, Eosinophils # (Auto) 0.2, Basophils # (Auto) 0.0, Immature Granulocyte # (Auto) 0.0, Sodium Level 143, Potassium Level 3.4, Chloride Level 103, Carbon Dioxide Level 32, Anion Gap 8, Blood Urea Nitrogen 15, Creatinine 0.89, Estimat Glomerular Filtration Rate 63, BUN/Creatinine Ratio 17, Glucose Level 111, Calcium Level 8.6, Corrected Calcium 9.2, Total Bilirubin 0.3, Aspartate Amino Transf (AST/SGOT) 12, Alanine Aminotransferase (ALT/SGPT) 8, Alkaline Phosphatase 130, Total Protein 6.8, Albumin 3.2 02/11/23 05:38: Glucometer 108 02/11/23 10:10: Glucometer 87 02/11/23 20:27: Glucometer 117 02/12/23 05:25: Glucometer 230 02/12/23 05:48: White Blood Count 7.3, Red Blood Count 3.37, Hemoglobin 8.9, Hematocrit 31, Mean Corpuscular Volume 93, Mean Corpuscular Hemoglobin 26, Mean Corpuscular Hemoglobin Concent 28, Red Cell Distribution Width 19.2, Platelet Count 249, Mean Platelet Volume 10.0, Immature Granulocyte % (Auto) 0, Neutrophils (%) (Auto) 80, Lymphocytes (%) (Auto) 8, Monocytes (%) (Auto) 9, Eosinophils (%) (Auto) 2, Basophils (%) (Auto) 0, Neutrophils # (Auto) 5.8, Lymphocytes # (Auto) 0.6, Monocytes # (Auto) 0.7, Eosinophils # (Auto) 0.1, Basophils # (Auto) 0.0, Immature Granulocyte # (Auto) 0.0, Sodium Level 139, Potassium Level 3.6, Chloride Level 100, Carbon Dioxide Level 29, Anion Gap 10, Blood Urea Nitrogen 16, Creatinine 1.04, Estimat Glomerular Filtration Rate 53, BUN/Creatinine Ratio 15, Glucose Level 237, Calcium Level 9.1, Corrected Calcium 9.5, Total Bilirubin 0.4, Aspartate Amino Transf (AST/SGOT) 14, Alanine Aminotransferase (ALT/SGPT) 8, Alkaline Phosphatase 137, Total Protein 7.4, Albumin 3.5 02/12/23 10:13: Glucometer 200 Discharge Home Medications: Active Scripts Active Reported Hydrocodone-Acetamin 10-325 mg (Hydrocodone/Acetaminophen) 10 Mg-325 Mg Tablet 1-2 Each PO Q6H PRN Tresiba (Insulin Degludec) 100 Unit/Ml Vial 20 Unit SQ HS Acid Burner Machine [employer] (FAMOTIDINE) (Famotidine) 20 Mg Tablet 20 Mg PO BID Miralax (Polyethylene Glycol 3350) 17 Gram Powd.pack 17 Gm PO DAILY PRN Omeprazole 40 Mg Capsule.dr 40 Mg PO DAILY Ropinirole HCl 0.25 Mg Tablet 0.25 Mg PO HS Potassium Chloride 10 Meq Tab.er.prt 20 Meq PO 0800,1400 Gabapentin 100 Mg Capsule 100 Mg PO TID Novolog Flexpen (Insulin Aspart) 100 Unit/Ml (3 Ml) Solution Units SQ AC USES PER SLIDING SCALE Furosemide 20 Mg Tablet 40 Mg PO 0800,1400 TAKES 2 (20MG) TABS Escitalopram Oxalate 20 Mg Tablet 20 Mg PO HS Simvastatin 20 Mg Tablet 20 Mg PO HS Instructions to patient/family Please see electronic discharge instructions given to patient. JACKY MURILLO DO Feb 12, 2023 12:08
[2023-02-12 13:56] VITALS: BP 119/56
--- NOTE | 2023-02-12 16:41 | Progress Note - Cardiology ---
Cardiology SOAP Progress Note Subjective: Better today Some gen weakness but much improved compared to yesterday No focal weakness No cp or palp or syncope or shortness of breath No n/v/d Objective: I&O/Vital Signs 02/12/23 02/12/23 02/12/23 02/12/23 07:00 07:19 08:00 09:44 Temp 36.6 Pulse 99 100 Resp 20 B/P (MAP) 138/64 (88) Pulse Ox 95 95 O2 Delivery Nasal Cannula Nasal Cannula Nasal Cannula O2 Flow Rate 3.50 4.00 4.00 02/12/23 02/12/23 02/12/23 11:13 12:27 13:56 Temp 36.8 36.8 Pulse 89 96 96 Resp 18 18 B/P (MAP) 119/56 (77) 119/56 Pulse Ox 98 98 O2 Delivery Nasal Cannula Nasal Cannula O2 Flow Rate 3.50 3.50 02/11/23 23:59 Intake Total 350 ml Output Total 1625 ml Balance -1275 ml Weight (Pounds): 212 Weight (Ounces): 7.0 Weight (Calculated Kilograms): [id number] Constitutional: AAO x 3, well-developed, well-nourished Respiratory: No accessory muscle use, No respiratory distress; chest expansion is symmetric, chest is bilaterally symmetric, other (diminished breath sounds) Cardiovascular: irregularly irregular; No JVD; S1 and S2 Gastrointestional: No tender; soft, round; No guarding; audible bowel sounds Extremities: other (bilat LE swelling) Neurologic/Psychiatric: other (moves all extremities) Skin: No rash on exposed areas, No ulcerations on exposed areas Results/Procedures: Labs Laboratory Tests 02/11/23 20:27: Glucometer 117H 02/12/23 05:25: Glucometer 230H 02/12/23 05:48: White Blood Count 7.3, Red Blood Count 3.37L, Hemoglobin 8.9L, Hematocrit 31L, Mean Corpuscular Volume 93, Mean Corpuscular Hemoglobin 26, Mean Corpuscular Hemoglobin Concent 28L, Red Cell Distribution Width 19.2H, Platelet Count 249, Mean Platelet Volume 10.0, Immature Granulocyte % (Auto) 0, Neutrophils (%) (Auto) 80H, Lymphocytes (%) (Auto) 8L, Monocytes (%) (Auto) 9, Eosinophils (%) (Auto) 2, Basophils (%) (Auto) 0, Neutrophils # (Auto) 5.8, Lymphocytes # (Auto) 0.6L, Monocytes # (Auto) 0.7, Eosinophils # (Auto) 0.1, Basophils # (Auto) 0.0, Immature Granulocyte # (Auto) 0.0, Sodium Level 139, Potassium Level 3.6, Chloride Level 100, Carbon Dioxide Level 29, Anion Gap 10, Blood Urea Nitrogen 16, Creatinine 1.04, Estimat Glomerular Filtration Rate 53, BUN/Creatinine Ratio 15, Glucose Level 237H, Calcium Level 9.1, Corrected Calcium 9.5, Total Bilirubin 0.4, Aspartate Amino Transf (AST/SGOT) 14, Alanine Aminotransferase (ALT/SGPT) 8, Alkaline Phosphatase 137H, Total Protein 7.4, Albumin 3.5 02/12/23 10:13: Glucometer 200H A/P: Assessment: Acute on chronic systolic and diastolic CHF - echo on 02/10/23: LVEF 45-50%, enlargement of both atria and RV, mild to mod MR, mod to severe TR, AoV sclerosis w/o stenosis, small amout of pericardial fluid w/o evidence of hemodynamic significance, PASP 40-45 mmHg H/O ac resp failure, multifactorial: acute on ch CHF & cor pulmonale, marked anemia, probable obesity-hypovent/GER in November 2022 - for which she had a prolonged hospitalization at [facility] in [place], [place] Chronic CHF and cor pulmonale - 2D Echo done 01/27/[address] Barker showing mild diffuse hypokinesia with EF 45%. Dilated right and left atrium, moderate MR, severe TR. PA 75-80mmHg. Severe pulmonary hypertension with dilated right heart chambers. Chronic, blood-loss and anemia and chronic, recurrent GI bleed - Endoscopy of 03-25-[address] Manning showed Reflux esophagitis [place] grade B, moderate size hiatal hernia approximately 3 cm in size. Moderate gastritis. No active bleeding. Chronic between stage II to III external and internal hemorrhoids, moderate sigmoid diverticulosis. Again, no active bleed. Small hyperplastic polyp of the ascending colon. - s/p hemorrhoid banding by Dr. Manning on 02-11-23 Paroxysmal atrial fibrillation (currently a-fib with controlled rate) - twelve-lead EKG was done showing atrial fibrillation with right bundle branch block. - [id number] score 4, yearly risk of stroke without oral anticoagulation is 4%. - Previously on Eliquis 5mg BID for stroke prophylaxis (currently being held d/t marked anemia and suspected GI bleed requiring transfusion at [facility]) Pulmonary HTN - likely d/t obesity hypoventilation syndrome/GER GER - non-compliant with CPAP tx Generalized weakness - continue PT/OT Hypertension - controlled Hyperlipidemia - maintained on statin CKD 3a - monitored and managed by the [facility] DM II - management per Medical services Peripheral neuropathy Chronic pain syndrome Plan: * Continue diuretic * Continue rate-contolling agents * Monitor labs * unable to tolerate OAC for reasons noted above in Assessment * s/p endoscopy with treatment for hemorrhoids last night * transition to oral HARIHTA Horn MD FACP FAC CCDS Feb 12, 2023 16:41
== END 2023-02-12 13:59 | disposition home health service (06) ==
LOC: EDUNIT# 13:05 → ER 13:08 → UNDOADMOB 16:23 → CSD 16:23 → 4TH 02-10 18:15 → UNDODISOB 02-12 13:59
PROVIDERS: ADMIT Internal Medicine; ATTEND Internal Medicine
DX: K64.2 Third degree hemorrhoids (principal); I13.0 Hypertensive heart and chronic kidney disease with heart failure and stage 1 through stage 4 chronic kidney disease, or unspecified chronic kidney disease; I50.23 Acute on chronic systolic (congestive) heart failure; N18.9 Chronic kidney disease, unspecified; E11.22 Type 2 diabetes mellitus with diabetic chronic kidney disease; I48.0 Paroxysmal atrial fibrillation; D64.9 Anemia, unspecified; E11.42 Type 2 diabetes mellitus with diabetic polyneuropathy; I27.20 Pulmonary hypertension, unspecified; N18.31 Chronic kidney disease, stage 3a; Z79.4 Long term (current) use of insulin; Z79.899 Other long term (current) drug therapy; Z99.81 Dependence on supplemental oxygen; Z79.01 Long term (current) use of anticoagulants
CPT/HCPCS: 36415; 71045; 80053; 82607; 82947; 83540; 83735; 83880; 85025; 90471; 90662; 93005; 93041; 93306; 94640; 94760; 96374; 96376; G0378